=== PATIENT | female | born 1945 | race Caucasian/White ===

== ENCOUNTER 2016-08-09 10:35 | Outpatient (RCR) | payer MEDICARE, MEDICAID ==
[~2016-08-09 10:35] MED LIST: ALB.5NB20 IH; ALBU0.632 IH; ALBU2.5V4 IH; ALEN10TA5 PO; ALN70T; ALN70T PO; ALPR0.5T72 PO; ASP325TEC PO; ASP81CT; ASPI-983 PO; AZITHROMYCIN 1% OU; BACL10TA PO; BUDE10.2 INH; BUDE6HFA IH; BUDEPRION SR100 MG; CALC-80 PO; CALC600T; CALCIUM; CETI10TA17 PO; CHLO500T4; CLCX200C; CLN.2T PO; CLOP75TA PO; CPH250CIP PO; CYCL10TA9 PO; CYCL1DRO OU; DABI150C2 PO; DABI150C5 PO; DCS100C PO; DICY10CA26; DILT360C26 PO; DILT360C36 PO; DOXY100C2 PO; DULO30CA PO; DULO60CA58 PO; ETD400T; FAMO20TA3 PO; FAMO20TA5 PO; FAMO40TA6 PO; FIBER THERAPY PO; FLUT16SP22 NS; FNT100TD TP; FURO20TA4 PO; FURO40TA4 PO; GFN600TCR PO; IBAN150T5 PO; LEVO500T69 PO; LEVO50TA6 PO; LEVO750T39 PO; LEVO750T9 PO; LINA290C PO; LISI-552 PO; LISI40TA PO; LNS30CCR; LORA10TA7 PO; LOTE5DRO4 OU; LRT10T; LUBI24CA6 PO; LUBI8CAP PO; LVT.05T PO; MAG; MELO-195 PO; METH750T3 PO; METO100T5 PO; METO200T32 PO; MGX400T PO; MIRT30TA6 PO; MMT17NA; MNTL10T PO; MRTZ15T PO; MULT-35 PO; MULT-608; MULT1CAP27 PO; OMEP20CA12 PO; OMEP20TA2 PO; ONDA-42 PO; OSLT75C PO; OXYB5TAB9 PO; OXYC-309 PO; OXYC-464 PO; POLY17PO23 PO; POTA10CA43 PO; POTA99TA4 PO; POTA99TA7; POTA99TA7 PO; PRD20T PO; PROP10DR2 OP; RT-COMBINH; SCR1T1 PO; SENN8.6T80 PO; TIOT18CA IH; TIOT18CA2 INH; TRAM50TA2 PO; UMEC62.5 INH; VERA120T; VITA150T PO; VITA1CAP59 PO; ZINC; [UNRECOGNIZED DRUG - CODE] PO; boniva; claritin; nyquil
[2016-09-13] MEDS ORDERED: PRD20T PO ×2 (02:04→02:32)
[2016-09-13] MEDS ORDERED: CEFD300C3 PO ×2 (02:04→02:32)
== END 2016-11-07 | disposition home or self-care (01) ==
LOC: PULM 10:35
PROVIDERS: ATTEND Internal Medicine Critical Care Medicine
DX: J44.9 Chronic obstructive pulmonary disease, unspecified (principal)
CPT/HCPCS: 99211

== ENCOUNTER 2016-09-12 23:57 | Emergency (ER) | payer MEDICARE, MEDICAID ==
[~2016-09-12] VITALS: Ht 157.5 cm; Wt 64.9 kg
[2016-09-13 00:45] LABS: BASOPHILS % (AUTO) 0 % (0-10); EOSINOPHILS # (AUTO) 0.1 10^3/uL (0.0-0.3); EOSINOPHILS % (AUTO) 1 % (0-10); LYMPHOCYTES # (AUTO) 0.8 X 10^3 (1.0-4.0); LYMPHOCYTES % (AUTO) 8 % (12-44); MEAN CORPUSCULAR HEMOGLOBIN 28 PG (25-34); MEAN CORPUSCULAR HGB CONC 34 G/DL (32-36); MEAN CORPUSCULAR VOLUME 82 FL (80-99); MEAN PLATELET VOLUME 8.6 FL (7.4-10.4); MONOCYTES # (AUTO) 0.6 X 10^3 (0.0-1.0); MONOCYTES % (AUTO) 6 % (0-12); NEUTROPHILS # (AUTO) 8.5 X 10^3 (1.8-7.8); NEUTROPHILS % (AUTO) 85 % (42-75); PLATELET COUNT 318 10^3/uL (130-400); RED BLOOD COUNT 5.33 10^6/uL (4.35-5.85); RED CELL DISTRIBUTION WIDTH 16.6 % (10.0-14.5)
[2016-09-13] MEDS ORDERED: methylPREDNISolone 40 MG/ML (Solu-MEDROL) VIAL IV ONE (00:45)
[2016-09-13] MEDS ORDERED: RT-ALBUTEROL/IPRATROPIUM 3 ML (DUONEB) VIAL INH ONE (00:45)
[2016-09-13 01:04] LABS: ALANINE AMINOTRANSFERASE 21 U/L (0-55); ALBUMIN 4.6 G/DL (3.2-4.5); ANION GAP 13 MMOL/L (5-14); ASPARTATE AMINO TRANSFERASE 16 U/L (5-34); BILIRUBIN,TOTAL 0.4 MG/DL (0.1-1.0); BLOOD UREA NITROGEN 15 MG/DL (7-18); BUN/CREATININE RATIO 16; CALCIUM 9.3 MG/DL (8.5-10.1); CARBON DIOXIDE 24 MMOL/L (21-32); CHLORIDE 93 MMOL/L (98-107); CREATININE SERUM 0.91 MG/DL (0.60-1.30); GFR ESTIMATED > 60; GLUCOSE 123 MG/DL (70-105); MAGNESIUM 2.5 MG/DL (1.8-2.4); POTASSIUM 4.3 MMOL/L (3.6-5.0); SODIUM 130 MMOL/L (135-145); TOTAL PROTEIN 7.2 G/DL (6.4-8.2)
[2016-09-13] MEDS ORDERED: FUROSEMIDE 40 MG/4 ML INJ (LASIX) IVP ONE (01:45)
[2016-09-13] MEDS ORDERED: CEFDINIR 300 MG (OMNICEF) CAP PO ONE (02:00)
[2016-09-13] MEDS ORDERED: CEFD300C3 PO ×2 (02:04→02:32)
[2016-09-13] MEDS ORDERED: PRD20T PO ×2 (02:04→02:32)
--- NOTE | 2016-09-13 02:05 | ED Respiratory ---
General Chief Complaint: Respiratory Problems Stated Complaint: SOA, COUGH Nursing Triage Note: c/o progressive soa last 2-3 days. Cough reported. Hx of COPD and continues to smoke. Source: patient, family, RN notes reviewed Exam Limitations: no limitations History of Present Illness Time seen by provider: 00:20 Initial Comments As above. Timing/Duration: week, getting worse Severity: moderate Prior Episodes/Possible Cause: occasional episodes Modifying Factors: Worse With Activity Associated Symptoms: cough shortness of breath Allergies and Home Medications Allergies Coded Allergies: hydrocodone (Verified Allergy, Unknown, 11/17/15) warfarin (Verified Adverse Reaction, Intermediate, BLISTERS, 11/17/15) Home Medications Albuterol Sulfate 5 Mg/1 Ml Solution 5 MG IH Q6H PRN PRN SHORTNESS OF BREATH ( Reported) Aspirin 81 Mg Tablet.dr 81 MG PO EVERY OTHER DAY (Reported) Budesonide/Formoterol Fumarate 10.2 Gm Hfa.aer.ad 2 PUFF INH BID (Reported) Cefdinir 300 Mg Capsule #14 300 MG PO BID Prescribed by: TOSHIA DUENAS on 09/13/16231 Dabigatran Etexilate Mesylate 150 Mg Capsule 150 MG PO BID (Reported) Diltiazem HCl 360 Mg Cap.er.24h 360 MG PO HS (Reported) Duloxetine HCl 60 Mg Capsule.dr 60 MG PO BID (Reported) Famotidine 20 Mg Tablet 20 MG PO BID (Reported) Furosemide 20 Mg Tablet 20 MG PO DAILY (Reported) Levothyroxine Sodium 50 Mcg Tablet 50 MCG PO DAILY (Reported) Lisinopril 20 Mg Tablet 20 MG PO DAILY (Reported) Loratadine 10 Mg Tablet 10 MG PO DAILY (Reported) Lubiprostone 24 Mcg Capsule 24 MCG PO DAILY (Reported) Methocarbamol 750 Mg Tablet 750 MG PO TID (Reported) Metoprolol Succinate 200 Mg Tab.er.24h 200 MG PO DAILY (Reported) Mirtazapine 30 Mg Tablet 30 MG PO HS (Reported) Multivitamin 1 Each Tablet 1 TAB PO DAILY (Reported) Oxycodone HCl/Acetaminophen 1 Each Tablet 1 TAB PO Q4H PRN PRN PAIN (Reported) Prednisone 20 Mg Tab #15 30 MG PO BID Prescribed by: TOSHIA DUENAS on 09/13/16231 Umeclidinium [place] 62.5 Mcg Blst.w.dev 1 PUFF INH DAILY (Reported) Vitamin B Complex & Vit C No.4 150 Mg Tablet 150 MG PO DAILY (Reported) Constitutional: see HPI Respiratory: see HPI cough dyspnea on exertion short of breath All Other Systems Reviewed Negative Unless Noted: Yes (Negative excepted noted.) Past Zhvzxeh-Ntmxip-Lkzhzw Hx Patient Social History Alcohol Use: Denies Use Recreational Drug Use: No Smoking Status: Current Everyday Smoker Recent Foreign Travel: No Contact w/Someone Who Travel: No Recent Infectious Disease Expo: No Physical Abuse Screen: No Sexual Abuse: No Immunizations Up To Date Tetanus Booster (TDap): Unknown Date of Pneumonia Vaccine: Jun 18, 2005 Date of Influenza Vaccine: Jun 12, 2014 Seasonal Allergies Seasonal Allergies: No Surgeries HX Surgeries: Yes (ULCER SURG) Surgeries: Abdominal, Gallbladder Respiratory Hx Respiratory Disorders: Yes (emphysema, ) Respiratory Disorders: Pneumonia, Chronic Bronchitis, COPD, Emphysema Cardiovascular Hx Cardiac Disorders: Yes Cardiac Disorders: Atrial Fibrillation, Chronic Edema/Swelling, Coronary Artery Disease, Hypertension Neurological Hx Neurological Disorders: No Reproductive System Hx Reproductive Disorders: No Genitourinary Hx Genitourinary Disorders: No Gastrointestinal Hx Gastrointestinal Disorders: Yes Gastrointestinal Disorders: Gastroesophageal Reflux, Ulcer Musculoskeletal Hx Musculoskeletal Disorders: Yes Musculoskeletal Disorders: Chronic Back Pain Endocrine Hx Endocrine Disorders: Yes Endocrine Disorders: Hypothyroidsim HEENT HX ENT Disorders: No Cancer Hx Cancer: No Psychosocial Hx Psychiatric Problems: Yes Behavioral Health Disorders: Anxiety Integumentary HX Skin/Integumentary Disorder: No Blood Transfusions Hx Blood Disorders: No Adverse Reaction to a Blood Tr: No Family Medical History Family Medial History: Arthritis 19 FATHER 19 MOTHER Cardiovascular disease 19 FATHER Diabetes mellitus 19 FATHER Physical Exam Vital Signs Vital Sign - Last 12Hours 09/13/16 09/13/16 00:10 00:42 Temp 98.3 Pulse 84 Resp 20 B/P 177/103 Pulse Ox 92 O2 Delivery Room Air O2 Flow Rate 2 Capillary Refill : Less Than 3 Seconds General Appearance: WD/WN no apparent distress HEENT: pharynx normal Neck: normal inspection Respiratory: no respiratory distress decreased breath sounds Cardiovascular: regular rate, rhythm Extremities: pedal edema Neurologic/Psychiatric: no motor/sensory deficits alert oriented x 3 Skin: warm/dry Progress/Results/Core Measures Results/Orders Lab Results Laboratory Tests Test 09/13/16 00:35 09/13/16 02:00 Range/Units Alanine Aminotransferase (ALT/SGPT) 21 0-55 U/L Albumin 4.6 H 3.2-4.5 G/DL Alkaline Phosphatase 105 40-136 U/L Anion Gap 13 5-14 MMOL/L Aspartate Amino Transf (AST/SGOT) 16 5-34 U/L B-Type Natriuretic Peptide 265.6 H <100.0 PG/ML BUN/Creatinine Ratio 16 Basophils # (Auto) 0.0 0.0-0.1 10^3/uL Basophils (%) (Auto) 0 0-10 % Blood Urea Nitrogen 15 7-18 MG/DL Calcium Level 9.3 8.5-10.1 MG/DL Carbon Dioxide Level 24 21-32 MMOL/L Chloride Level 93 L 98-107 MMOL/L Creatinine 0.91 0.60-1.30 MG/DL D-Dimer 0.32 0.00-0.49 UG/ML Eosinophils # (Auto) 0.1 0.0-0.3 10^3/uL Eosinophils (%) (Auto) 1 0-10 % Estimat Glomerular Filtration Rate > 60 Glucose Level 123 H 70-105 MG/DL Hematocrit 44 35-52 % Hemoglobin 15.0 11.5-16.0 G/DL Lymphocytes # (Auto) 0.8 L 1.0-4.0 X 10^3 Lymphocytes (%) (Auto) 8 L 12-44 % Magnesium Level 2.5 H 1.8-2.4 MG/DL Mean Corpuscular Hemoglobin 28 25-34 PG Mean Corpuscular Hemoglobin Concent 34 32-36 G/DL Mean Corpuscular Volume 82 80-99 FL Mean Platelet Volume 8.6 7.4-10.4 FL Monocytes # (Auto) 0.6 0.0-1.0 X 10^3 Monocytes (%) (Auto) 6 0-12 % Neutrophils # (Auto) 8.5 H 1.8-7.8 X 10^3 Neutrophils (%) (Auto) 85 H 42-75 % Platelet Count 318 130-400 10^3/uL Potassium Level 4.3 3.6-5.0 MMOL/L Red Blood Count 5.33 4.35-5.85 10^6/uL Red Cell Distribution Width 16.6 H 10.0-14.5 % Sodium Level 130 L 135-145 MMOL/L Total Bilirubin 0.4 0.1-1.0 MG/DL Total Protein 7.2 6.4-8.2 G/DL White Blood Count 10.0 4.3-11.0 10^3/uL Urine Bacteria TRACE /HPF Urine Bilirubin NEGATIVE NEGATIVE Urine Casts NONE /LPF Urine Clarity CLEAR Urine Color YELLOW Urine Crystals NONE /LPF Urine Culture Indicated NO Urine Glucose (UA) NEGATIVE NEGATIVE Urine Ketones NEGATIVE NEGATIVE Urine Leukocyte Esterase 1+ H NEGATIVE Urine Mucus NEGATIVE /LPF Urine Nitrite NEGATIVE NEGATIVE Urine Protein NEGATIVE NEGATIVE Urine RBC RARE /HPF Urine RBC (Auto) 1+ H NEGATIVE Urine Specific [place] 1.010 L 1.016-1.022 Urine Squamous Epithelial Cells 2-5 /HPF Urine Urobilinogen NORMAL NORMAL MG/DL Urine WBC RARE /HPF Urine pH 7 5-9 My Orders Orders-TOSHIA DUENAS DO Saline Lock/Iv-Start (09/13/16 00:31) Ekg Tracing (09/13/16 00:31) BNP (09/13/16 00:31) Cbc With Automated Diff (09/13/16 00:31) Comprehensive Metabolic Panel (09/13/16 00:31) Magnesium (09/13/16 00:31) Ua Culture If Indicated (09/13/16 00:31) Chest 1 View, Ap/Pa Only (09/13/16 00:31) Methylprednisolone Sod Succ (Solu-Medrol (09/13/16 00:45) Rt Request For Service (09/13/16 00:34) Oxygen-Administer 07,19 (09/13/16 00:34) Albuterol/Ipra Inhalation Soln (Duoneb I (09/13/16 00:45) Svn Sm Volume Nebulizer Rt-Rfs (09/13/16 00:36) Furosemide Injection (Lasix Injection) (09/13/16 01:45) Fibrin Degradation Products (09/13/16 01:36) Cefdinir Capsule (Omnicef Capsule) (09/13/16 02:00) Iv Push Care Assistant Ed (09/12/16 ) Medications Given in ED Vital Signs/I&O Vital Sign - Last 12Hours 09/13/16 09/13/16 09/13/16 00:10 00:42 02:26 Temp 98.3 Pulse 84 85 Resp 20 18 B/P 177/103 Pulse Ox 92 99 97 O2 Delivery Room Air Nasal Cannula O2 Flow Rate 2 Blood Pressure Mean: 127 Progress Note : Progress Note Feels better p/ IV Solu medrol and SVN treatment. States feels well enough to go home. Has been using her Lasix prn. Have encourage her to take daily for next several days. ECG Initial ECG Impression Date: Sep 13, 2016 Initial ECG Impression Time: 00:46 Initial ECG Rate: 83 Initial ECG Rhythm: A Fib/Flutter Initial ECG Impression: Atrial Fibrillation (? anteroseptal infarct; probable ischemia diffuse leads) Initial ECG Comparisson: Changed Diagnostic Imaging Diagonstic Imaging: Xray Plain Films/CT/US/NM/MRI: chest Reviewed: Reviewed by Me (chronic changes) Departure Impression Impression: Primary Impression: COPD exacerbation Additional Impressions: CHF (congestive heart failure) Tobacco abuse Atrial fibrillation, controlled Disposition: 01 HOME, SELF-CARE Condition: Improved Departure-Patient Inst. Decision time for Depature: 02:02 Referrals: OBINNA PRASAD MD (PCP/Family) Primary Care Physician Patient Instructions: Exacerbation of COPD (DC) Add. Discharge Instructions: All discharge instructions reviewed with patient and/or family. Voiced understanding. RECOMMEND TAKING YOUR LASIX FOR THE NEXT COUPLE DAYS WELL. Scripts Prednisone 20 Mg Tab30 Mg PO BID #15 TAB Ref 0 Prov:TOSHIA DUENAS DO 09/13/16 Cefdinir 300 Mg [id number] Mg PO BID #14 CAP Ref 0 Prov:TOSHIA DUENAS DO 09/13/16 TOSHIA DUENAS DO Sep 13, 2016 02:05 Impression Impression: Primary Impression: COPD exacerbation Additional Impressions: CHF (congestive heart failure) Tobacco abuse Atrial fibrillation, controlled Disposition: HOME, SELF-CARE Condition: Improved Departure-Patient Inst. Decision time for Depature: 02:02 Referrals: OBINNA PRASAD MD (PCP/Family) Primary Care Physician Patient Instructions: Exacerbation of COPD (DC) Add. Discharge Instructions: All discharge instructions reviewed with patient and/or family. Voiced understanding. RECOMMEND TAKING YOUR LASIX FOR THE NEXT COUPLE DAYS WELL. Scripts Prednisone 20 Mg Tab30 Mg PO BID #15 TAB Ref 0 Prov:TOSHIA DUENAS DO 09/13/16 Cefdinir 300 Mg [id number] Mg PO BID #14 CAP Ref 0 Prov:TOSHIA DUENAS DO 09/13/16 TOSHIA DUENAS DO Sep 13, 2016 02:05
[2016-09-13 02:26] VITALS: BP 169/92
[2016-09-13 03:02] LABS: BILIRUBIN,URINE NEGATIVE (NEGATIVE); KETONES,URINE NEGATIVE (NEGATIVE); LEUKOCYTE ESTERASE ,URINE 1+ (NEGATIVE); NITRITE,URINE NEGATIVE (NEGATIVE); PH,URINE 7 (5-9); PROTEIN,URINE NEGATIVE (NEGATIVE); UROBILINOGEN,URINE NORMAL (NORMAL); WBC,URINE RARE /HPF
--- NOTE | 2016-09-13 07:18 | Diagnostic Imaging Report ---
INDICATION: Shortness of air. Compared 03/01/2016. FINDINGS: Air trapping and COPD chronic. Cardiomegaly chronic. No effusion, pneumothorax, or failure pattern. IMPRESSION: Chronic COPD stable from prior. Dictated by: Dictated on workstation # [id number]
== END 2016-09-13 02:26 | disposition home or self-care (01) ==
LOC: EDUNIT# 23:57 → ER 09-13
DX: J44.1 Chronic obstructive pulmonary disease with (acute) exacerbation (principal); I48.2 Chronic atrial fibrillation; I50.9 Heart failure, unspecified; F17.210 Nicotine dependence, cigarettes, uncomplicated; Z79.899 Other long term (current) drug therapy
CPT/HCPCS: 36415; 71010; 80053; 81000; 83735; 83880; 85025; 85379; 93005; 94640; 96374; 96375

== ENCOUNTER → 2016-09-30 | Outpatient (CLI) | payer MEDICARE, MEDICAID ==
[~2016-09-30] MED LIST changes: +CEFD300C3 PO
--- NOTE | 2016-09-30 18:10 | Diagnostic Imaging Report ---
INDICATION: Cough and shortness of breath. EXAMINATION: PA and lateral chest was obtained at 1:46 p.m. COMPARISON: 09/13/16. FINDINGS: Heart is borderline in size. The lungs are clear. There is no pneumothorax or pleural fluid. IMPRESSION: No acute process in the chest. Dictated by: Dictated on workstation # [id number]
== END ==
LOC: RAD 13:17
PROVIDERS: ATTEND Family Medicine
DX: R06.02 Shortness of breath (principal)
CPT/HCPCS: 71020

== ENCOUNTER 2016-11-05 08:40 | Outpatient (CLI) | payer MEDICARE, MEDICAID ==
[~2016-11-05] VITALS: Ht 160 cm; Wt 61.2 kg
[2016-11-05] MEDS ORDERED: BUPIVACAINE 0.25% 30 ML (SENSORCAINE) VIAL ONE (08:48)
[2016-11-05] MEDS ORDERED: TRIAMCINOLONE ACET (KENALOG-40) 40 MG/ML 1 ML VIAL ONE (08:48)
[2016-11-05 08:56] VITALS: BP 121/87
[2016-11-05 09:18] VITALS: BP 140/96
--- NOTE | 2016-11-05 11:23 | Pain Medicine-Procedure ---
Procedure Pre-Op/Post-Op Diagnosis Diagnosis: disc disorder with radiculopathy, lumbar Indications for Operation low back pain Attending Surgeon [place] Procedure Date of Service: Nov 05, 2016 PROCEDURE: Caudal Epidural Steroid Injection with catheter under Flouroscopic Guidance PROCEDURE NOTE: After obtaining written informed consent patient was taken to the procedure room. Vital signs were monitored through out the procedure. patient held her Pradaxa for 5 days prior to procedure.A time out was performed. The patient was placed in the prone position on fluoroscopy table. The lower back above the caudal space was prepped with chloraprep and draped in the usual sterile fashion. The skin over the sacral hiatus was identified under fluoroscopic guidance and infiltrated with 1% lidocaine for local anesthesia via 25 gauge needle. An 17-gauge epimed needle was used to access the epidural space under fluoroscopic guidance and was then advanced into the epidural space under fluoroscopic guidance in the AP view. The epimed catheter was then advanced under flourospopic guidance to the L5-S1 interspace. There was no paresthesia with catheter placement. After negative aspiration 1 cc of the contrast dye was injected through the needle with good spread of the medication in the epidural space at the appropriate levels. Again, after negative aspiration, 80 mg of kenalog with 2 cc of 0.25% marcaine and 2 mL's of preservative free normal saline was injected. There was no evidence of CSF, paresthesia or heme during the procedure. The catheter and needle were withdrawn as a unit and the tip was noted to be intact upon removal. Skin was cleaned and a sterile dressing was applied. Following the procedure the patient's vital signs were stable. The patient was discharged home after a brief period of observation with no new neuologic deficits. Complications none LELE HUGHES MD Nov 05, 2016 11:23 am
== END 2016-11-05 09:19 | disposition home or self-care (01) ==
LOC: CARD 08:40
PROVIDERS: ATTEND Pain Medicine Pain Medicine
DX: M51.16 Intervertebral disc disorders with radiculopathy, lumbar region (principal); M53.3 Sacrococcygeal disorders, not elsewhere classified; M47.816 Spondylosis without myelopathy or radiculopathy, lumbar region; Z79.899 Other long term (current) drug therapy; G89.4 Chronic pain syndrome
CPT/HCPCS: 62323

== ENCOUNTER 2017-05-28 11:52 | Emergency (ER) | payer MEDICARE, MEDICAID ==
[~2017-05-28] VITALS: Ht 160 cm; Wt 64.4 kg
[~2017-05-28 11:52] MED LIST changes: -ALB.5NB20 IH; +ALBU5SOL6 IH; -METO200T32 PO; +METO200T4 PO
--- OUTSIDE RECORDS SUMMARY | 2017-05-28 11:58 | XMS REPORT ---
Author Author OBINNA PRASAD [employer] Address Unknown Phone Unavailable Care Team Providers Care Car Storer Name Role Phone OBINNA PRASAD CP Unavailable Allergies No Known Allergies Problems Problem Type Condition ICD-9 Code Onset Dates Condition Status Problem Nondependent tobacco use disorder 305.1 Active Problem Hypothyroidism 244.9 Active Problem Hyponatremia 276.1 Active Assessment Adrenal mass 255.9 Active Problem Atrial fibrillation 427.31 Active Problem Hypertension 401.9 Active Problem Adrenal mass 255.9 Active Problem COPD (chronic obstructive pulmonary disease) 496 Active Problem Irritable bowel syndrome 564.1 Active Problem Generalized anxiety disorder 300.02 Active Problem Chronic pain 338.29 Active Medications No Known Medications Procedures Procedure Coding System Code Date TOTAL CORTISOL CPT-4 28764 Jun 02, 2015 CIERA, ROUTINE* CPT-4 82058 Jun 02, 2015 [facility] CPT-4 NOBLL Jun 02, 2015 Results No Known Results Summary Purpose eClinicalWorks Submission
--- OUTSIDE RECORDS SUMMARY | 2017-05-28 11:58 | XMS REPORT ---
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 Active 2378109377694255 Problem Hyponatremia E87.1 Active 17277494 Problem Allergic rhinitis, unspecified allergic rhinitis trigger, unspecified rhinitis seasonality J30.9 Active 67883016 Problem Rectal bleeding K62.5 Active 03388272 Problem Anxiety F41.9 Active 21547035 Problem 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 Active 720098029 Problem Irritable bowel syndrome without diarrhea K58.9 Active 96958262 Problem Persistent atrial fibrillation I48.1 Active 494024384 Problem Tobacco use Z72.0 Active 207027608 Problem Other chronic pain G89.29 Active 19557809 Problem Other nonspecific abnormal finding of lung field R91.8 Resolved 225553107 Problem Hypothyroidism, unspecified hypothyroidism type E03.9 Active 17474959 ALLERGIES Unknown Allergies SOCIAL HISTORY No smoking Hx information available PLAN OF CARE VITAL SIGNS MEDICATIONS Unknown Medications RESULTS No Results PROCEDURES No Known procedures IMMUNIZATIONS No Known Immunizations
--- OUTSIDE RECORDS SUMMARY | 2017-05-28 11:58 | XMS REPORT ---
Author Author OBINNA PRASAD [facility] eClinicalWorks Address Unknown Phone Unavailable Care Team Providers Care Pasteurizing Machine Operator Name Role Phone OBINNA PRASAD CP Unavailable [...] pain 338.29 Active Medications No Known Medications Results No Known Results Summary Purpose eClinicalWorks Submission
--- OUTSIDE RECORDS SUMMARY | 2017-05-28 11:58 | XMS REPORT ---
Author Author OBINNA PRASAD [facility] eClinicalWorks Address Unknown Phone Unavailable Care Team Providers Care Sales Department Supervisor Name Role Phone OBINNA PRASAD CP Unavailable Allergies No Known Allergies Problems Problem Type Condition Code Onset Dates Condition Status Problem Nondependent tobacco use disorder 305.1 Active Problem Hypothyroidism 244.9 Active Problem Hyponatremia 276.1 Active Problem Atrial fibrillation 427.31 Active Problem Hypertension 401.9 Active Problem Adrenal mass 255.9 Active Problem COPD (chronic obstructive pulmonary disease) 496 Active Problem Irritable bowel syndrome 564.1 Active Problem Generalized anxiety disorder 300.02 Active Problem Chronic pain 338.29 Active Medications Medication Code System Code Instructions Start Date End Date Status Dosage Levothyroxine Sodium [facility] [address]-82 50 MCG Orally Once a day April 10, 2015 1 tablet Results No Known Results Summary Purpose eClinicalWorks Submission
--- OUTSIDE RECORDS SUMMARY | 2017-05-28 11:59 | XMS REPORT ---
Author Author OBINNA PRASAD [employer] Address Unknown Phone Unavailable Care Team Providers Care Farm Field Manager Name Role Phone OBINNA PRASAD CP Unavailable Allergies No Known Allergies Problems Problem Type Condition Code Onset Dates Condition Status Problem Hypothyroidism, unspecified hypothyroidism type E03.9 Active Problem Nocturnal hypoxia G47.34 Active Problem Irritable bowel syndrome without diarrhea K58.9 Active Assessment 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 Active Problem Hyponatremia E87.1 Active Problem Tobacco use Z72.0 Active Problem Persistent atrial fibrillation I48.1 Active Problem 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 Active Problem Other chronic pain G89.29 Active Problem Chronic obstructive pulmonary disease, unspecified COPD type J44.9 Active Problem Essential hypertension I10 Active Problem Anxiety F41.9 Active Medications No Known Medications Procedures Procedure Coding System Code Date CORTISOL, FREE CPT-4 10341 Jul 14, 2015 ASSAY, THREE CATECHOLAMINES CPT-4 68032 Jul 14, 2015 Results No Known Results Summary Purpose eClinicalWorks Submission
--- OUTSIDE RECORDS SUMMARY | 2017-05-28 11:59 | XMS REPORT ---
Author Author OBINNA PRASAD [employer] Address Unknown Phone Unavailable Care Team Providers Care Cart Pusher Name Role Phone OBINNA PRASAD CP Unavailable Allergies No Known Allergies Problems Problem Type Condition Code Onset Dates Condition Status Problem Chronic obstructive pulmonary disease, unspecified COPD type J44.9 Active Problem Anxiety F41.9 Active Problem Other chronic pain G89.29 Active Problem Osteoporosis M81.0 Active Problem Rectal bleeding K62.5 Active Problem Allergic rhinitis, unspecified allergic rhinitis trigger, unspecified rhinitis seasonality J30.9 Active Problem Persistent atrial fibrillation I48.1 Active Problem Essential hypertension I10 Active Problem 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 Active Problem Tobacco use Z72.0 Active Assessment 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 Active Problem Hyponatremia E87.1 Active Problem Hypothyroidism, unspecified hypothyroidism type E03.9 Active Problem Other nonspecific abnormal finding of lung field R91.8 Active Problem Irritable bowel syndrome without diarrhea K58.9 Active Problem 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
--- OUTSIDE RECORDS SUMMARY | 2017-05-28 11:59 | XMS REPORT ---
Author ELOISA Vila Organization [employer] Address Unknown Phone Unavailable Care Team Providers Care Welder Apprentice Name Role Phone ELOISA HAYNES CP Unavailable Allergies No Known Allergies Problems [...] Instructions Start Date End Date Status Dosage Spiriva HandiHaler [facility] [address]-23 18 MCG Inhalation Once a day February 13, 2015 1 capsule Albuterol Sulfate [facility] [address]-46 2.5 mg /3 mL (0.083 %) Oct 09, 2014 inhale 3 milliliters (2.5 mg) by nebulization route 3 times per day as needed Results No Known Results Summary Purpose eClinicalWorks Submission
--- OUTSIDE RECORDS SUMMARY | 2017-05-28 11:59 | XMS REPORT ---
Author Author OBINNA PRASAD Organization [employer] Address Unknown Phone Unavailable Care Team Providers Care Fruit Inspector Name Role Phone OBINNA PRASAD CP Unavailable [...] 300.02 Active Problem Chronic pain 338.29 Active Assessment COPD (chronic obstructive pulmonary disease) 496 Active Assessment Chronic pain 338.29 Active Assessment Atrial fibrillation 427.31 Active Assessment Chronic sore throat 472.1 Active Assessment Generalized anxiety disorder 300.02 Active Assessment Hypothyroidism 244.9 Active Assessment Hypertension 401.9 Active Assessment Adrenal mass 255.9 Active Medications No Known Medications Procedures Procedure Coding System Code Date ASSAY OF ALDOSTERONE CPT-4 52499 May 12, 2015 ASSAY OF RENIN CPT-4 93191 May 12, 2015 LAB NOT BILLED BY [facility] CPT-4 NOBLL May 12, 2015 VENIPUNCT, ROUTINE* CPT-4 48299 May 12, 2015 Results Name Result Date Reference Range Unit Abnormality Flag ROUTINE VENIPUNCTURE Summary Purpose eClinicalWorks Submission
--- OUTSIDE RECORDS SUMMARY | 2017-05-28 11:59 | XMS REPORT ---
Author Author OBINNA PRASAD [facility] eClinicalWorks Address Unknown Phone Unavailable Care Team Providers Care Detacker Name Role Phone OBINNA PRASAD Unavailable Allergies No Known Allergies Problems Problem [...] Instructions Start Date End Date Status Dosage Mirtazapine [facility] [address]-92 30 MG Oct 09, 2014 take 1 tablet ( 30 mg) by oral route once daily before bedtime Results No Known Results Summary Purpose eClinicalWorks Submission
--- OUTSIDE RECORDS SUMMARY | 2017-05-28 11:59 | XMS REPORT ---
Author Author OBINNA PRASAD [facility] eClinicalWorks Address Unknown Phone Unavailable Care Team Providers Care State Game Protector Name Role Phone OBINNA PRASAD CP Unavailable [...]
--- OUTSIDE RECORDS SUMMARY | 2017-05-28 12:00 | XMS REPORT ---
Author Author OBINNA PRASAD Organization [employer] Address Unknown Phone Unavailable Care Team Providers Care Dining Services Manager Name Role Phone OBINNA PRASAD CP [...] Active Problem Tobacco use Z72.0 Active Assessment Hyponatremia E87.1 Active Assessment 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 Active Problem Hyponatremia E87.1 Active Problem Hypothyroidism, unspecified hypothyroidism type E03.9 Active Problem Other nonspecific abnormal finding of lung field R91.8 Active Problem Irritable bowel syndrome without diarrhea K58.9 Active Problem 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 Active Problem Nocturnal hypoxia G47.34 Active Medications No Known Medications Results No Known Results Summary Purpose eClinicalWorks Submission
--- OUTSIDE RECORDS SUMMARY | 2017-05-28 12:00 | XMS REPORT ---
Author Author OBINNA PRASAD [employer] Address Unknown Phone Unavailable Care Team Providers Care Medical Receptionist Biller Name Role Phone OBINNA PRASAD CP Unavailable Allergies No Known Allergies Problems Problem Type Condition Code Onset Dates Condition Status Problem Hypothyroidism, unspecified hypothyroidism type E03.9 Active Problem Nocturnal hypoxia G47.34 Active Problem Irritable bowel syndrome without diarrhea K58.9 Active Assessment Chronic obstructive pulmonary disease, unspecified COPD type J44.9 Active Problem Hyponatremia E87.1 Active Problem Tobacco use Z72.0 Active Problem Persistent atrial fibrillation I48.1 Active Problem 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 Active Problem Other chronic pain G89.29 Active Problem Chronic obstructive pulmonary disease, unspecified COPD type J44.9 Active Problem Essential hypertension I10 Active Problem Anxiety F41.9 Active Medications Medication Code System Code Instructions Start Date End Date Status Dosage Albuterol Sulfate [facility] [id number] (2.5 MG/3ML) 0.083% USE ONE VIAL PER NEBULIZER THREE TIMES DAILY NEEDED FOR SHORTNESS OF BREATH Results No Known Results Summary Purpose eClinicalWorks Submission
--- OUTSIDE RECORDS SUMMARY | 2017-05-28 12:01 | XMS REPORT ---
Author Author OBINNA PRASAD [facility] eClinicalWorks Address Unknown Phone Unavailable Care Team Providers Care Finished Carpet Inspector Name Role Phone OBINNA PRASAD CP [...]
--- OUTSIDE RECORDS SUMMARY | 2017-05-28 12:01 | XMS REPORT ---
Author Author SHANICE OBINNA Organization [facility] Address [address] [place] [address] Care Team Providers Care R D Manager Name Role Phone OBINNA PRASAD Unavailable PROBLEMS Type Condition ICD9-CM Code LLD20-[id number] Code Onset Dates Condition Status SNOMED Code Problem Chronic obstructive pulmonary disease, unspecified COPD type J44.9 Active 28374558 Problem Essential hypertension I10 Active 14373322 Problem Nocturnal hypoxia G47.34 Active 218234693 Problem Primary insomnia F51.01 Active 5455763 Problem Osteoporosis M81.0 Active 64371920 Problem 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 Active 7418140296019034 Problem Hyponatremia E87.1 Active 02140539 Problem Allergic rhinitis, unspecified allergic rhinitis trigger, unspecified rhinitis seasonality J30.9 Active 32551758 Problem Rectal bleeding K62.5 Active 71198469 Problem Anxiety F41.9 Active 02231202 Problem 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 Active 267335704 Problem Irritable bowel syndrome without diarrhea K58.9 Active 34404972 Problem Persistent atrial fibrillation I48.1 Active 865711185 Problem Tobacco use Z72.0 Active 004193118 Problem Other chronic pain G89.29 Active 40312706 Problem Other nonspecific abnormal finding of lung field R91.8 Resolved 774997613 Problem Hypothyroidism, unspecified hypothyroidism type E03.9 Active 88228869 ALLERGIES Unknown Allergies SOCIAL HISTORY No smoking Hx information available PLAN OF CARE VITAL SIGNS MEDICATIONS Medication Instructions Dosage Frequency Start Date End Date Duration Status Fluticasone Propionate 50 MCG/ACT Nasally Once a day 1 spray in each nostril 24h May, Active Polyethylene Glycol 3350 0 Orally Once a day 1 capful with 8 oz fluid 24h Jul, Active RESULTS No Results PROCEDURES No Known procedures IMMUNIZATIONS No Known Immunizations
--- OUTSIDE RECORDS SUMMARY | 2017-05-28 12:01 | XMS REPORT ---
Author Author OBINNA PRASAD Organization [employer] Address Unknown Phone Unavailable Care Team Providers Care Commercial Litigation Paralegal Name Role Phone OBINNA PRASAD CP Unavailable [...] Instructions Start Date End Date Status Dosage Furosemide [facility] [address]-48 20 MG November 19, 2014 take 1 tablet by Oral route 1 time per day PRN Linzess [facility] [address]-79 290 MCG Oct 14, 2014 take 1 capsule by Oral route 1 time per day Results No Known Results Summary Purpose [employer] Submission
--- OUTSIDE RECORDS SUMMARY | 2017-05-28 12:02 | XMS REPORT ---
Author Author OBINNA PRASAD [employer] Address Unknown Phone Unavailable Care Team Providers Care Personnel Adviser Name Role Phone OBINNA PRASAD CP Unavailable Allergies No Known Allergies Problems Problem Type Condition Code Onset Dates Condition Status Problem Hypothyroidism, unspecified hypothyroidism type E03.9 Active Problem Nocturnal hypoxia G47.34 Active Problem Irritable bowel syndrome without diarrhea K58.9 Active Problem Hyponatremia E87.1 Active Problem Tobacco use Z72.0 Active Problem Persistent atrial fibrillation I48.1 Active Problem 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 Active Problem Other chronic pain G89.29 Active Problem Chronic obstructive pulmonary disease, unspecified COPD type J44.9 Active Problem Essential hypertension I10 Active Problem Anxiety F41.9 Active Medications No Known Medications Results No Known Results Summary Purpose [employer]ClinicalWorks Submission
--- OUTSIDE RECORDS SUMMARY | 2017-05-28 12:02 | XMS REPORT ---
Author Author OBINNA PRASAD [employer] Address Unknown Phone Unavailable Care Team Providers Care Sprayer Automatic Spray Machine Name Role Phone OBINNA PRASAD CP Unavailable Allergies No Known Allergies Problems Problem Type Condition Code Onset Dates Condition Status Problem Irritable bowel syndrome without diarrhea K58.9 Active Problem Chronic obstructive pulmonary disease, unspecified COPD type J44.9 Active Problem Nocturnal hypoxia G47.34 Active Problem 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 Active Problem Tobacco use Z72.0 Active Problem Rectal bleeding K62.5 Active Problem Anxiety F41.9 Active Problem Other chronic pain G89.29 Active Problem Persistent atrial fibrillation I48.1 Active Problem Essential hypertension I10 Active Problem Other nonspecific abnormal finding of lung field R91.8 Active Problem 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 Active Problem Hyponatremia E87.1 Active Problem Hypothyroidism, unspecified hypothyroidism type E03.9 Active Medications Medication Code System Code Instructions Start Date End Date Status Dosage Incruse Ellipta [facility] [id number] 62.5 MCG/INH INHALE 1 PUFF ONCE A DAY Results No Known Results Summary Purpose [employer]ClinicalWorks Submission
--- OUTSIDE RECORDS SUMMARY | 2017-05-28 12:02 | XMS REPORT ---
Author Author OBINNA PRASAD [employer] Address Unknown Phone Unavailable Care Team Providers Care Color Strainer Name Role Phone OBINNA PRASAD CP Unavailable [...] Instructions Start Date End Date Status Dosage Pepcid [facility] [address]-76 40 MG Orally Once a day Aug 21, 2015 1 tablet Results No Known Results Summary Purpose [employer]ClinicalWorks Submission
--- OUTSIDE RECORDS SUMMARY | 2017-05-28 12:02 | XMS REPORT ---
Author Author OBINNA PRASAD [employer] Address Unknown Phone Unavailable Care Team Providers Care Professor Of Business Administration Name Role Phone OBINNA PRASAD CP Unavailable [...] dysplasia K22.710 Active Problem Hyponatremia E87.1 Active Assessment Hyponatremia E87.1 Active Problem Hypothyroidism, unspecified hypothyroidism type E03.9 Active Medications No Known Medications Results No Known Results Summary Purpose [employer]ClinicalWorks Submission
--- OUTSIDE RECORDS SUMMARY | 2017-05-28 12:02 | XMS REPORT ---
Author Author OBINNA PRASAD [employer] Address Unknown Phone Unavailable Care Team Providers Care Linux Network Administrator Name Role Phone OBINNA PRASAD CP Unavailable Allergies, Adverse Reactions, Alerts Substance Reaction Event Type Hydrocodone Bitartrate Info Not Available Drug Allergy Coumadin Info Not Available Drug Allergy Problems Problem Type Condition Code Onset Dates Condition Status Problem Other chronic pain G89.29 Active Problem Essential hypertension I10 Active Problem Anxiety F41.9 Active Problem Allergic rhinitis, unspecified allergic rhinitis trigger, unspecified rhinitis seasonality J30.9 Active Assessment Anxiety F41.9 Active Problem Osteoporosis M81.0 Active Assessment Primary insomnia F51.01 Active Assessment Drug-induced constipation K59.03 Active Problem Primary insomnia F51.01 Active Problem Tobacco use Z72.0 Active Problem Persistent atrial fibrillation I48.1 Active Problem Rectal bleeding K62.5 Active Problem 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 Active Assessment Other chronic pain G89.29 Active Problem Other nonspecific abnormal finding of lung field R91.8 Active Assessment Screening for breast cancer Z12.39 Active Assessment Hematuria R31.9 Active Problem Hypothyroidism, unspecified hypothyroidism type E03.9 Active Problem Irritable bowel syndrome without diarrhea K58.9 Active Problem 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 Active Problem Nocturnal hypoxia G47.34 Active Assessment Encounter for immunization Z23 Active Problem Hyponatremia E87.1 Active Problem Chronic obstructive pulmonary disease, unspecified COPD type J44.9 Active Medications Medication Code System Code Instructions Start Date End Date Status Dosage Fluticasone Propionate [facility] [address]-13 50 MCG/ACT Nasally Once a day Jun 08, 2016 1 spray in each nostril Ventolin HFA [facility] [address]-25 108 (90 Base) MCG/ACT Inhalation every 4 hrs 2 puffs as needed Furosemide [facility] 01198226098 20 MG TAKE ONE TABLET BY MOUTH EVERY DAY NEEDED 30 duloxetine NDC 0 60 mg Oct 14, 2014 take 1 capsule by Oral route 2 times per day Symbicort [facility] [address]-51 160-4.5 mcg/actuation November 28, 2014 inhale 2 puffs by inhalation route 2 times per day in the morning and evening Albuterol Sulfate [facility] 10587898699 (2.5 MG/3ML) 0.083% USE 1 VIAL VIA NEBULIZER THREE TIMES DAILY NEEDED FOR SHORTNESS OF BREATH - NEEDS AN APPOINTMENT FOR MORE REFILLS Oxycodone-Acetaminophen [facility] [address]-91 7.5-325 MG Orally every 4 hours 1 tablet as needed OxyContin [facility] [address]-04 15 MG Orally every 12 hrs 1 tablet Mirtazapine [facility] 35845232699 30 MG TAKE ONE TABLET BY MOUTH ONCE DAILY BEFORE BEDTIME Pradaxa [facility] [address]-47 150 mg Oct 09, 2014 take 1 capsule (150 mg) by oral route 2 times per day Lisinopril [facility] [address]-95 20 mg Oct 09, 2014 take 1 tablet (20 mg) by oral route once daily Amitiza [facility] 27576386591 24 MCG TAKE 1 CAPSULE BY MOUTH TWICE DAILY - TAKE WITH FOOD Alendronate Sodium [facility] [address]-19 70 MG Orally by oral route once weekly in the morning, at least 30 min before first food, beverage, or medication of day February 12, 2015 1 tablet Pepcid [facility] [address]-03 40 MG Orally Once a day Aug 21, 2015 1 tablet Polyethylene Glycol 3350 [facility] [address]-41 0 Orally Once a day Jul 29, 2016 1 capful with 8 oz fluid Methocarbamol [facility] [address]-77 750 mg Oct 09, 2014 take 1 tablets by Oral route 3 times per day Levothyroxine Sodium [facility] 76007778108 50 MCG TAKE ONE TABLET BY MOUTH ONCE DAILY Loratadine [facility] 40862303405 10 MG Orally Once a day 1 Tablet by Oral route 1 time per day Incruse Ellipta [facility] 85493396361 62.5 MCG/INH INHALE 1 PUFF ONCE A DAY Metoprolol Succinate ND 0 200 mg Oct 09, 2014 take 1 tablet (200 mg) by oral route once daily Cardizem CD [facility] [address]-50 360 mg Oct 09, 2014 take 1 capsule ( 360 mg) by oral route once daily Procedures Procedure Coding System Code Date [facility] VISIT ESTABLISHED PATIENT CPT-4 G0467 Jul 29, 2016 Office Visit, Est Pt., Level 3 CPT-4 17602 Jul 29, 2016 [facility] NOBLL Jul 29, 2016 SINGLE IMMUNIZATION ADMIN CPT-4 03740 Jul 29, 2016 FLUARIX QUAD P-FREE 3 AND UP .50 2015 CPT-4 94303 Jul 29, 2016 Vital Signs Date/Time: Jul 29, 2016 Cardiac Monitoring Heart Rate 72 bpm Weight 143.3 lbs Height 64 in BMI 24.59 Index Blood Pressure Diastolic 82 mmHg Blood Pressure Systolic 130 mmHg Results Name Result Date Reference Range Unit Abnormality Flag UA W/ MICROSCOPY ----RBC 0-2 [id number] 0 - 2 /hpf ----WBC 0-5 [id number] 0 - 5 /hpf ----Mucus Threads Present [id number] Not Estab. ----Epithelial Cells (non renal) 0-10 [id number] 0 - 10 /hpf ----Occult Blood Negative [id number] Negative ----Ketones Negative 20160729 Negative ----Bacteria None seen [id number] None seen/Few ----Glucose Negative 20160729 Negative ----Protein Negative [id number] Negative/Trace ----WBC Esterase Trace [id number] Negative A ----Urobilinogen,Semi-Qn 0.2 78121001 0.2-1.0 mg/dL ----Bilirubin Negative [id number] Negative ----Microscopic Examination See below: [id number] ----Nitrite, Urine Negative [id number] Negative ----Specific [place] 1.009 20160729 1.005-1.030 ----pH 7.0 39782753 5.0-7.5 ----Urine-Color Yellow [id number] Yellow ----Appearance Clear [id number] Clear Immunizations Vaccine Administration Date FLUARIX QUAD P-FREE 3 AND UP .50 2015Jul 29, 2016 Summary Purpose eClinicalWorks Submission
--- OUTSIDE RECORDS SUMMARY | 2017-05-28 12:03 | XMS REPORT ---
Author Author OBINNA RPASAD Organization [employer] Address Unknown Phone Unavailable Care Team Providers Care Russian Teacher Name Role Phone OBINNA PRASAD CP Unavailable [...]
--- OUTSIDE RECORDS SUMMARY | 2017-05-28 12:03 | XMS REPORT ---
Author Author OBINNA PRASAD [employer] Address Unknown Phone Unavailable Care Team Providers Care Insurance Checker Name Role Phone OBINNA PRASAD CP Unavailable [...]
--- OUTSIDE RECORDS SUMMARY | 2017-05-28 12:03 | XMS REPORT ---
Author Author OBINNA PRASAD [facility] eClinical[employer] Address Unknown Phone Unavailable Care Team Providers Care Drill Hand Name Role Phone OBINNA PRASAD CP Unavailable [...] Medications Procedures Procedure Coding System Code Date URINALYSIS, AUTO, W/O SCOPE CPT-4 83112 Jul 07, 2016 [facility] NOBLL Jul 07, 2016 Results No Known Results Summary Purpose [employer]ClinicalWorks Submission
--- OUTSIDE RECORDS SUMMARY | 2017-05-28 12:04 | XMS REPORT ---
Author Author OBINNA PRASAD [employer] Address Unknown Phone Unavailable Care Team Providers Care Ultrasound Applications Specialist Name Role Phone OBINNA PRASAD CP Unavailable Allergies, Adverse Reactions, Alerts Substance Reaction Event Type Hydrocodone Bitartrate Info Not Available Drug Allergy Coumadin Info Not Available Drug Allergy Problems Problem Type Condition Code Onset Dates Condition Status Problem Hypothyroidism, unspecified hypothyroidism type E03.9 Active Problem Nocturnal hypoxia G47.34 Active Problem Irritable bowel syndrome without diarrhea K58.9 Active Problem Tobacco use Z72.0 Active Problem Persistent atrial fibrillation I48.1 Active Problem 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 Active Problem Other chronic pain G89.29 Active Problem Chronic obstructive pulmonary disease, unspecified COPD type J44.9 Active Problem Essential hypertension I10 Active Problem Anxiety F41.9 Active Assessment GERD (gastroesophageal reflux disease) K21.9 Active Assessment Rectal bleeding K62.5 Active Problem Hyponatremia E87.1 Active Medications Medication Code System Code Instructions Start Date End Date Status Dosage Pepcid [facility] [address]-52 40 MG Orally Once a day Aug 21, 2015 1 tablet Loratadine [facility] 86527810316 10 MG Orally Once a day 1 Tablet by Oral route 1 time per day Spiriva HandiHaler [facility] 59709321025 18 MCG Inhalation Once a day 1 capsule Albuterol Sulfate [facility] 97434584990 (2.5 MG/3ML) 0.083% USE ONE VIAL PER NEBULIZER THREE TIMES DAILY NEEDED FOR SHORTNESS OF BREATH Dexamethasone [facility] [address]-79 1 MG Orally Once a day x 1 dose between 11 pm & midnight the night before lab. Then come in at 8 am the next morning for lab draw April 10, 2015 1 tablet Methocarbamol [facility] [address]-99 750 mg Oct 09, 2014 take 1 tablets by Oral route 3 times per day duloxetine ND 0 60 mg Oct 14, 2014 take 1 capsule by Oral route 2 times per day Furosemide [facility] 37971633280 20 MG take 1 tablet by Oral route 1 time per day PRN Lisinopril [facility] [address]-16 20 mg Oct 09, 2014 take 1 tablet (20 mg) by oral route once daily Nasonex [facility] [address]-99 50 MCG/ACT Nasally Once a day April 04, 2015 2 sprays in each nostril Oxycodone-Acetaminophen [facility] [address]-16 7.5-325 MG Orally every 4 hours 1 tablet as needed Mucinex [facility] [address]-19 600 MG Orally every 12 hrs 1 tablet as needed Cardizem CD [facility] [address]-24 360 mg Oct 09, 2014 take 1 capsule ( 360 mg) by oral route once daily Pradaxa [facility] [address]-70 150 mg Oct 09, 2014 take 1 capsule (150 mg) by oral route 2 times per day Symbicort [facility] [address]-68 160-4.5 mcg/actuation November 28, 2014 inhale 2 puffs by inhalation route 2 times per day in the morning and evening Levothyroxine Sodium [facility] [address]-61 50 MCG Orally Once a day April 10, 2015 1 tablet Alendronate Sodium [facility] [address]-04 70 MG Orally by oral route once weekly in the morning, at least 30 min before first food, beverage, or medication of day February 12, 2015 1 tablet Amitiza [facility] 85365297819 24 MCG Orally Twice a day 1 capsule with food Mirtazapine [facility] 90226971729 30 MG take 1 tablet (30 mg) by oral route once daily before bedtime Metoprolol Succinate [facility] 0 200 mg Oct 09, 2014 take 1 tablet (200 mg) by oral route once daily Procedures Procedure Coding System Code Date [facility] VISIT ESTABLISHED PATIENT CPT-4 G0467 Aug 21, 2015 Office Visit, Est Pt., Level 3 CPT-4 14921 Aug 21, 2015 TEST FOR BLOOD, FECES CPT-4 19328 Aug 21, 2015 Vital Signs Date/Time: Aug 21, 2015 Temperature 97.5 F Weight 144.2 lbs Height 64 in BMI 24.75 Index Blood Pressure Diastolic 70 mmHg Blood Pressure Systolic 118 mmHg Cardiac Monitoring Heart Rate 70 bpm Results Name Result Date Reference Range Unit Abnormality Flag HEMOCCULT (IN HOUSE) ----RESULTS POSITIVE [id number] ----Control + [id number] ----Lot # [id number] ----Exp date [id number] Summary Purpose eClinicalWorks Submission
--- OUTSIDE RECORDS SUMMARY | 2017-05-28 12:04 | XMS REPORT ---
Author Author SHANICE OBINNA Organization [facility] Address [address] [place] [address] Care Team Providers Care Garment Cutter Name Role Phone OBINNA PRASAD Unavailable PROBLEMS Type Condition ICD9-CM Code [id number] Code Onset Dates Condition Status SNOMED Code Problem Chronic obstructive pulmonary disease, unspecified COPD type J44.9 Active 95606709 Problem Essential hypertension I10 Active 38973084 Problem Nocturnal hypoxia G47.34 Active 122924069 Problem Primary insomnia F51.01 Active 5821982 Problem Osteoporosis M81.0 Active 36772625 Problem 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 Active 4506349136976741 Problem Hyponatremia E87.1 Active 45028850 Problem Allergic rhinitis, unspecified allergic rhinitis trigger, unspecified rhinitis seasonality J30.9 Active 36771164 Problem Rectal bleeding K62.5 Active 28710938 Problem Anxiety F41.9 Active 52973496 Problem 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 Active 607685360 Problem Irritable bowel syndrome without diarrhea K58.9 Active 15137735 Problem Persistent atrial fibrillation I48.1 Active 296749309 Problem Tobacco use Z72.0 Active 498165622 Problem Other chronic pain G89.29 Active 18614488 Problem Other nonspecific abnormal finding of lung field R91.8 Resolved 075951036 Problem Hypothyroidism, unspecified hypothyroidism type E03.9 Active 63677002 ALLERGIES Unknown Allergies SOCIAL HISTORY No smoking Hx information available PLAN OF CARE VITAL SIGNS MEDICATIONS Unknown Medications RESULTS No Results PROCEDURES No Known procedures IMMUNIZATIONS No Known Immunizations
--- OUTSIDE RECORDS SUMMARY | 2017-05-28 12:04 | XMS REPORT ---
Author Author OBINNA PRASAD Organization [facility] Address [address] [place] [address] Care Team Providers Care Senior Ux Developer Name Role Phone OBINNA PRASAD Unavailable PROBLEMS Type Condition ICD9-CM Code [id number] Code Onset Dates Condition Status SNOMED Code Problem Other chronic pain G89.29 Active 19336680 Problem Essential hypertension I10 Active 43639145 Problem Anxiety F41.9 Active 04206220 Problem Allergic rhinitis, unspecified allergic rhinitis trigger, unspecified rhinitis seasonality J30.9 Active 38827454 Problem Osteoporosis M81.0 Active 85485605 Problem Tobacco use Z72.0 Active 292019897 Problem Persistent atrial fibrillation I48.1 Active 453819066 Problem Rectal bleeding K62.5 Active 11428116 Problem 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 Active 754144103 Problem Other nonspecific abnormal finding of lung field R91.8 Resolved 352310423 Problem Hypothyroidism, unspecified hypothyroidism type E03.9 Active 09858467 Problem Irritable bowel syndrome without diarrhea K58.9 Active 91247591 Problem 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 Active 5674556774886740 Problem Nocturnal hypoxia G47.34 Active 905614846 Problem Hyponatremia E87.1 Active 37971213 Problem Chronic obstructive pulmonary disease, unspecified COPD type J44.9 Active 79206333 ALLERGIES Unknown Allergies SOCIAL HISTORY No smoking Hx information available PLAN OF CARE VITAL SIGNS MEDICATIONS Unknown Medications RESULTS Name Result Date Reference Range CBC Please note WBC RBC Hemoglobin Hematocrit MCV MCH MCHC RDW Platelets NRBC Neutrophils Lymphs Monocytes Eos Basos Immature Granulocytes Neutrophils (Absolute) Lymphs (Absolute) Monocytes(Absolute) Eos (Absolute) Baso (Absolute) Immature Grans (Abs) Immature Cells Bands Blasts/blast like cells Megakaryocytes Metamyelocytes Myelocytes Other, Lineage Uncertain Promyelocytes Hematology Comments: Request Problem Request Problem CMP (OUTSIDE LAB) PROCEDURES Procedure Date Ordered Related Diagnosis Body Site LAB NOT BILLED BY [facility] Jun 09, 2016 IMMUNIZATIONS No Known Immunizations
--- OUTSIDE RECORDS SUMMARY | 2017-05-28 12:04 | XMS REPORT ---
Author Author OBINNA PRASAD [facility] eClinical[employer] Address Unknown Phone Unavailable Care Team Providers Care Joinery Machinist Name Role Phone OBINNA PRASAD CP Unavailable [...] Instructions Start Date End Date Status Dosage Symbicort [facility] [address]-21 160-4.5 mcg/actuation November 28, 2014 inhale 2 puffs by inhalation route 2 times per day in the morning and evening Results No Known Results Summary Purpose eClinicalWorks Submission
--- OUTSIDE RECORDS SUMMARY | 2017-05-28 12:04 | XMS REPORT ---
Author Author OBINNA PRASAD [facility] e[employer] Address Unknown Phone Unavailable Care Team Providers Care Reforestation Worker Name Role Phone OBINNA PRASAD CP Unavailable [...]
--- OUTSIDE RECORDS SUMMARY | 2017-05-28 12:05 | XMS REPORT ---
Author Author OBINNA PRASAD [facility] eClinicalWorks Address Unknown Phone Unavailable Care Team Providers Care Embossograph Operator Name Role Phone OBINNA PRASAD CP [...] Instructions Start Date End Date Status Dosage Omeprazole [facility] [address]-58 20 MG Orally Once a day May 21, 2015 1 capsule Results No Known Results Summary Purpose [employer]ClinicalWorks Submission
[2017-05-28] MEDS ORDERED: NS IV 1000 ML 1,000 ML IV ONE (12:08)
[2017-05-28] MEDS ORDERED: MUPIROCIN 2% OINT 22 GM (BACTROBAN) TUBE ONE (12:15)
[2017-05-28 12:18] LABS: BASOPHILS # (AUTO) 0.1 10^3/uL (0.0-0.1); BASOPHILS % (AUTO) 1 % (0-10); EOSINOPHILS # (AUTO) 0.2 10^3/uL (0.0-0.3); EOSINOPHILS % (AUTO) 2 % (0-10); LYMPHOCYTES % (AUTO) 22 % (12-44); MEAN CORPUSCULAR HEMOGLOBIN 28 PG (25-34); MEAN CORPUSCULAR HGB CONC 33 G/DL (32-36); MEAN CORPUSCULAR VOLUME 83 FL (80-99); MEAN PLATELET VOLUME 8.7 FL (7.4-10.4); MONOCYTES # (AUTO) 0.9 X 10^3 (0.0-1.0); MONOCYTES % (AUTO) 10 % (0-12); NEUTROPHILS # (AUTO) 5.8 X 10^3 (1.8-7.8); NEUTROPHILS % (AUTO) 65 % (42-75); PLATELET COUNT 420 10^3/uL (130-400); RED BLOOD COUNT 4.23 10^6/uL (4.35-5.85); RED CELL DISTRIBUTION WIDTH 15.2 % (10.0-14.5)
[2017-05-28 12:29] LABS: ALANINE AMINOTRANSFERASE 10 U/L (0-55); ALBUMIN 3.4 GM/DL (3.2-4.5); ANION GAP 10 MMOL/L (5-14); ASPARTATE AMINO TRANSFERASE 16 U/L (5-34); BILIRUBIN,TOTAL 0.2 MG/DL (0.1-1.0); BLOOD UREA NITROGEN 10 MG/DL (7-18); BUN/CREATININE RATIO 12; CALCIUM 8.6 MG/DL (8.5-10.1); CARBON DIOXIDE 31 MMOL/L (21-32); CHLORIDE 93 MMOL/L (98-107); CREATININE SERUM 0.84 MG/DL (0.60-1.30); GFR ESTIMATED > 60; GLUCOSE 83 MG/DL (70-105); LIPASE 8 U/L (8-78); SODIUM 134 MMOL/L (135-145); TOTAL PROTEIN 5.9 GM/DL (6.4-8.2)
[2017-05-28] MEDS ORDERED: morphine INJ 10 MG/ML 1ML (SYR OR VIAL) IVP STA (12:42)
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
[2017-05-28 12:53] LABS: BILIRUBIN,URINE NEGATIVE (NEGATIVE); KETONES,URINE NEGATIVE (NEGATIVE); LEUKOCYTE ESTERASE ,URINE 1+ (NEGATIVE); NITRITE,URINE NEGATIVE (NEGATIVE); PH,URINE 8 (5-9); PROTEIN,URINE NEGATIVE (NEGATIVE); UROBILINOGEN,URINE NORMAL (NORMAL)
[2017-05-28 13:04] LABS: WBC,URINE RARE /HPF
--- NOTE | 2017-05-28 13:18 | Diagnostic Imaging Report ---
INDICATION: Chest pain and constipation. COMPARISON: 09/30/16. FINDINGS: Lungs are clear. No pleural effusion or pneumothorax. Heart is enlarged. Atherosclerotic and tortuous aorta is unchanged. Chronic compression fracture of the lower thoracic vertebra. Surgical changes at the GE junction are again seen. IMPRESSION: 1. No acute cardiopulmonary process. Dictated by: Dictated on workstation # [id number]
--- NOTE | 2017-05-28 13:19 | Diagnostic Imaging Report ---
PROCEDURE: CT head without contrast. TECHNIQUE: Multiple contiguous axial images were obtained through the brain without the use of intravenous contrast. INDICATION: Fall one week prior with loss of consciousness. Patient reportedly on blood thinners. COMPARISON is made with the previous study from October 14, 2014. FINDINGS: There is global age-appropriate cerebral volume loss demonstrated. There are background chronic microvascular changes in the white matter which are not significantly changed. There is no territorial loss of membreno-white differentiation to suggest acute ischemia. There is no evidence of acute hemorrhage. There is no abnormal extra-axial fluid collection. The basilar cisterns are patent. Posterior fossa demonstrates no acute process. Rather mild atherosclerotic calcification within the vessels at the skull base. The mastoids are clear and the visualized portions of the paranasal sinuses are clear. No acute calvarial abnormality is demonstrated. There is no significant soft tissue swelling. IMPRESSION: 1. Global age-appropriate cerebral volume loss with background chronic microvascular changes within the white matter. There is no CT evidence of acute intracranial abnormality. Specifically, there is no evidence of intracranial hemorrhage. Dictated by: Dictated on workstation # [id number]
--- NOTE | 2017-05-28 13:26 | Diagnostic Imaging Report ---
EXAM: Two views of the abdomen. INDICATION: Constipation. FINDINGS: The visualized lung bases appear clear. There is cardiac enlargement. The bowel gas pattern demonstrates a gas-filled loop of small bowel within the low pelvis which appears mildly dilated and measures up to approximately 2.3 cm. There is an air-fluid level demonstrated within this loop of bowel projecting over of the left iliac wing. There is a large degree of stool present within the colon. There is a marked lumbar levoscoliosis with multilevel degenerative disc disease. IMPRESSION: 1. A large degree of stool demonstrated within the colon. There are gas distended loops of small bowel. One of these demonstrates an air-fluid level in the upright view. By plain radiography, the small bowel is not significantly dilated. Repeat imaging could be considered if continued symptomatology. 2. Lung bases appear clear. Cardiomegaly is noted. Dictated by: Dictated on workstation # [id number]
[2017-05-28] MEDS ORDERED: MUPI15CR TP (13:49)
[2017-05-28 14:18] VITALS: BP 143/73
[2017-05-28] MEDS ORDERED: MUPIROCIN 2% OINT 22 GM (BACTROBAN) TUBE TOP SCH (21:00)
== END 2017-05-28 14:18 | disposition home or self-care (01) ==
LOC: EDUNIT# 11:52 → ER 11:53
DX: S09.90XA Unspecified injury of head, initial encounter (principal); T21.25XA Burn of second degree of buttock, initial encounter; T24.292A Burn of second degree of multiple sites of left lower limb, except ankle and foot, initial encounter; T22.211A Burn of second degree of right forearm, initial encounter; T31.0 Burns involving less than 10% of body surface; J43.9 Emphysema, unspecified; I48.91 Unspecified atrial fibrillation; I25.10 Atherosclerotic heart disease of native coronary artery without angina pectoris; I10 Essential (primary) hypertension; K21.9 Gastro-esophageal reflux disease without esophagitis; F41.9 Anxiety disorder, unspecified; E03.9 Hypothyroidism, unspecified; F17.200 Nicotine dependence, unspecified, uncomplicated; Z87.19 Personal history of other diseases of the digestive system; Z87.09 Personal history of other diseases of the respiratory system; Z82.49 Family history of ischemic heart disease and other diseases of the circulatory system; Z79.82 Long term (current) use of aspirin; W01.0XXA Fall on same level from slipping, tripping and stumbling without subsequent striking against object, initial encounter; X11.8XXA Contact with other hot tap-water, initial encounter; Y92.009 Unspecified place in unspecified non-institutional (private) residence as the place of occurrence of the external cause
CPT/HCPCS: 36415; 70450; 71020; 74020; 80053; 81000; 83690; 85025; 87070; 87205; 96361; 96374

== ENCOUNTER → 2017-06-09 | Outpatient (CLI) | payer MEDICARE, MEDICAID ==
[~2017-06-09] MED LIST changes: +METO200T32 PO; -METO200T4 PO; +MUPI15CR TP
== END ==
LOC: WOUNDCARE 09:44
PROVIDERS: ATTEND Internal Medicine
DX: T21.25XA Burn of second degree of buttock, initial encounter (principal); T24.212A Burn of second degree of left thigh, initial encounter; T65.292A Toxic effect of other tobacco and nicotine, intentional self-harm, initial encounter; X12.XXXA Contact with other hot fluids, initial encounter; Y93.G3 Activity, cooking and baking
CPT/HCPCS: 16020

== ENCOUNTER → 2017-06-14 | Outpatient (CLI) | payer MEDICARE, MEDICAID | LOC: WOUNDCARE 11:19 | PROVIDERS: ATTEND Nurse Practitioner | DX: T21.25XA Burn of second degree of buttock, initial encounter (principal); T24.212A Burn of second degree of left thigh, initial encounter; T65.292A Toxic effect of other tobacco and nicotine, intentional self-harm, initial encounter; X12.XXXA Contact with other hot fluids, initial encounter; Y93.G3 Activity, cooking and baking | CPT/HCPCS: 16020 ==

== ENCOUNTER → 2017-08-22 | Outpatient (CLI) | payer MEDICARE, MEDICAID ==
[~2017-08-22] MED LIST changes: +CATHETER FLUSH 10 ML SYR IV PRN; +IOHEXOL 350 MG/ML 100 ML (OMNIPAQUE 350) VIAL IV ONE; -METO200T32 PO; +METO200T4 PO; +NS 100 ML (IVPB) BAG IV ONE
[2017-08-22 12:53] LABS: ALBUMIN 3.8 GM/DL (3.2-4.5); ANION GAP 9 MMOL/L (5-14); BLOOD UREA NITROGEN 16 MG/DL (7-18); BUN/CREATININE RATIO 19; CALCIUM 8.7 MG/DL (8.5-10.1); CARBON DIOXIDE 28 MMOL/L (21-32); CHLORIDE 96 MMOL/L (98-107); CREATININE SERUM 0.84 MG/DL (0.60-1.30); GFR ESTIMATED > 60; GLUCOSE 62 MG/DL (70-105); PHOSPHORUS 3.4 MG/DL (2.3-4.7); POTASSIUM 4.3 MMOL/L (3.6-5.0); SODIUM 133 MMOL/L (135-145)
--- NOTE | 2017-08-22 18:08 | Diagnostic Imaging Report ---
PROCEDURE: CT abdomen with and without contrast. TECHNIQUE: Multiple contiguous axial CT images of the abdomen were obtained prior to and after intravenous administration of iodinated contrast. INDICATION: Adrenal mass. 100 mL of Omnipaque 350 is administered intravenously. COMPARISON: 07/22/15. FINDINGS: There is a left adrenal mass measuring 2.9 x 1.7 cm comparable to prior measurements of 3.2 x 1.7 cm on 07/13/2015. The low density on the unenhanced phase and significant washout are suggestive of adrenal adenoma. The stability since 2014 supports that. There is also another stable nodule in the right adrenal measuring 1.3 cm. This is also most likely an adenoma and is stable from the previous study. The liver, the spleen, and the pancreas appear unremarkable. The gallbladder has been removed with cholecystectomy clips seen. There is stable dilatation of the CBD without significant intrahepatic biliary dilatation and without an obstructive mass identified around the ampulla of Vater. There is moderate atrophy of the right kidney stable from the previous exam. Symmetric renal parenchymal enhancement and excretion, however, is seen. There is no hydronephrosis. The abdominal aorta is normal in caliber. No para-aortic significantly enlarged lymph node is seen. The lung bases appear clear. The osseous structures demonstrate scoliosis convex to the left in the lumbar spine centered around L2/L3 level. There is a compression fracture at T12 level similar to 07/22/2015. IMPRESSION: Stable bilateral adrenal nodules larger on the left side up to 2.9 cm in size from 2015 likely related to adrenal adenomas. Dictated by: Dictated on workstation # [id number]
== END ==
LOC: RAD 12:20
PROVIDERS: ATTEND Internal Medicine Endocrinology, Diabetes & Metabolism
DX: E27.8 Other specified disorders of adrenal gland (principal); E87.1 Hypo-osmolality and hyponatremia; E55.9 Vitamin D deficiency, unspecified
CPT/HCPCS: 36415; 74170; 80069

== ENCOUNTER 2017-09-08 11:10 | Outpatient (CLI) | payer MEDICARE, MEDICAID ==
[~2017-09-08] VITALS: Ht 160 cm; Wt 64.4 kg
[2017-09-08] MEDS ORDERED: methylPREDNISolone 80 MG/ML (DEPO MEDROL) VIAL ONE (11:53)
[2017-09-08 12:02] VITALS: BP 132/73
[2017-09-08 13:19] VITALS: BP 153/91
--- NOTE | 2017-09-10 03:40 | OPERATIVE REPORT ---
DATE OF SERVICE: 09/08/2017 DIAGNOSIS: Lumbar radiculopathy. PROCEDURE: Caudal epidural steroid injection. PROCEDURE IN DETAIL: The patient was placed in the prone position on the examination table. The area over the sacrum from the lumbosacral junction down to and past the sacrococcygeal junction was prepped with anesthetic. Under fluoroscopy guidance, the area identified as the sacral sulcus was found and using a syringe with lidocaine, local was injected. Under fluoroscopy guidance, 25-gauge and 27-gauge 3-1/2 inch spinal needles were then directed down into the sacral sulcus. Dye was injected. We obtained a crosstable fluoroscopy image and saw the dye was an epidural flow in the sacral vault. Negative aspiration for spinal fluid or blood. At this time, we switched over and injected 80 mg of Depo-Medrol was injected under fluoroscopy with washout of contrast. The patient tolerated procedure well without any incident. Job ID: [id number] DocumentID: [id number] Dictated Date: 09/09/2017 18:59:31 Molder Hand Date: 09/10/2017 03:40:13 Dictated By: DO ADORE NEGRETE
== END 2017-09-08 13:21 | disposition home or self-care (01) ==
LOC: CARD 11:10
PROVIDERS: ATTEND Pain Medicine Interventional Pain Medicine
DX: M54.16 Radiculopathy, lumbar region (principal)
CPT/HCPCS: 62323

== ENCOUNTER → 2017-09-08 | Outpatient (CLI) | payer MEDICARE, MEDICAID ==
[~2017-09-08] MED LIST changes: -CATHETER FLUSH 10 ML SYR IV PRN; -IOHEXOL 350 MG/ML 100 ML (OMNIPAQUE 350) VIAL IV ONE; -NS 100 ML (IVPB) BAG IV ONE
--- NOTE | 2017-09-08 14:06 | Diagnostic Imaging Report ---
Examination: DEXA scan. Indication: osteopenia Technique: Bone mineral density estimated based on dual energy radiography over the lumbar spine and femoral necks, was performed. Findings: The lumbar spine T-score is -3.6. This is 4.8% decreased density measurements compared to 09/27/2011. T score over the left femoral neck is -2.8 and on the right side is -2.5. This is 14% decreased density measurements compared to 2011. IMPRESSION: Osteoporosis.. Dictated by: Dictated on workstation # [id number]
== END ==
LOC: RAD 11:10
PROVIDERS: ATTEND Family Medicine
DX: Z12.31 Encounter for screening mammogram for malignant neoplasm of breast (principal); M81.0 Age-related osteoporosis without current pathological fracture
CPT/HCPCS: 77067; 77080

== ENCOUNTER 2018-02-23 05:48 | Outpatient (CLI) | payer MEDICARE, MEDICAID ==
[~2018-02-23] VITALS: Ht 160 cm; Wt 62.6 kg
[~2018-02-23 05:48] MED LIST changes: -METO200T4 PO; +METO200T48 PO
[2018-02-23] MEDS ORDERED: LEVO75TA6 PO (11:56)
[2018-02-23] MEDS ORDERED: ALEN70TA47 PO (11:56)
[2018-02-23] MEDS ORDERED: OMEP20CA12 PO (11:56)
[2018-02-23] MEDS ORDERED: UMEC62.5 IH (11:56)
[2018-02-23] MEDS ORDERED: METH150T PO (11:56)
[2018-02-23] MEDS ORDERED: RT-ALBUINH IH (11:56)
[2018-03-01] MEDS ORDERED: MORP30TA60 PO (09:43)
== END 2018-02-23 11:59 ==
LOC: PREOP 05:48
PROVIDERS: ATTEND Surgery
DX: Z01.818 Encounter for other preprocedural examination (principal)

== ENCOUNTER → 2018-06-09 | Outpatient (CLI) | payer MEDICARE, MEDICAID ==
[~2018-06-09] MED LIST changes: +ALEN70TA47 PO; +LEVO75TA6 PO; +METH150T PO; +MORP30TA60 PO; +RT-ALBUINH IH; +UMEC62.5 IH
[2018-06-09] MEDS: NS 250 ML (IVPB) BAG IV ONE (13:19)
[2018-06-09] MEDS: IOHEXOL 350 MG/ML 100 ML (OMNIPAQUE 350) VIAL IV ONE (13:19)
--- NOTE | 2018-06-09 15:39 | Diagnostic Imaging Report ---
CLINICAL INDICATION: Patient with right-sided epiglottic mass. EXAM: Axial CT scan of the neck soft tissue performed with 75 cc of Omnipaque 350 IV contrast. Coronal and sagittal reformatted images were created for better evaluation. COMPARISON: CT scan of the neck performed without IV contrast dated 03/13/2015. FINDINGS: There is interval development of a 2.0 cm x 1.9 cm x 2.0 cm (AP x Trans x CC) heterogeneously enhancing lobulated mass which is centered at the base of the right epiglottis region. This mass extends along the right pharyngoepiglottic fold and right aryepiglottic fold. There is encroachment upon the right vallecula and associated asymmetry of the airway of the supraglottic larynx with gaxw-yz-xewhmtng narrowing seen. The glottis is symmetric and unremarkable. This mass is seen roughly 1.3 cm superior to the level of the true vocal cords/glottis. This mass does not extend across midline. This mass does not involve the hyoid cartilage, arytenoid cartilages, or thyroid cartilage. The remainder of the nasopharynx, oropharynx, hypopharynx, and remainder of the laryngeal soft tissue structures are unremarkable. There are no significantly enlarged neck lymph nodes. All of the visualized neck lymph nodes are less than 10 mm in short axis with none looking more suspicious than the other. There are upper mediastinal lymph nodes seen with the largest one measuring 11 mm x 6 mm in the region lateral to the aortic arch. The thyroid gland and bilateral salivary glands are unremarkable. Visualized portions of the oral cavity, sublingual space, tongue, and submandibular regions are unremarkable. There is atherosclerotic disease involving bilateral carotid arteries with the left CCA bifurcation the worst. There is at least moderate stenosis involving the origin of the left cervical ICA/distal left CCA region. There is cervical spine degenerative disease with hypertrophic vertebral body spurs at the C5-C6 and C6-C7 levels with severe loss of intervertebral disc height, bilateral uncinate spurs, and suggestion of diffuse disc bulge. There is at least moderate central canal narrowing at the C5-C6 level and at least mild central canal narrowing at the C6-C7 level. 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 Limited visualization of the intracranial structures is unremarkable. Visualized upper lung robles are clear. Paranasal sinuses and temporal bone structures show no significant abnormality. IMPRESSION: 1: There is interval development of a lobulated heterogeneously enhancing mass involving the right side of the supraglottic larynx, which is concerning for neoplasm. This mass appears centered at the base of the right side of the epiglottis which slightly extends to the right pharyngoepiglottic fold and along the right aryepiglottic fold. This mass is roughly 1.3 cm superior to the true vocal cords/glottis. There is atim-qe-gmzjcdoh narrowing of the airway due to this mass. 2: There is no significant neck lymphadenopathy. There are nonspecific upper mediastinal lymph nodes seen which are not significantly enlarged. 3: There is at least moderate stenosis involving the distal left CCA/cervical left ICA junction region. Ultrasound of the carotid arteries would help better evaluate. Dictated by: Dictated on workstation # [id number]
== END ==
LOC: RAD 12:49
PROVIDERS: ATTEND Otolaryngology Otolaryngology/Facial Plastic Surgery
DX: J38.7 Other diseases of larynx (principal); I65.22 Occlusion and stenosis of left carotid artery; R59.0 Localized enlarged lymph nodes
CPT/HCPCS: 70491

== ENCOUNTER → 2018-06-22 | Outpatient (CLI) | payer MEDICARE, MEDICAID ==
[~2018-06-22] MED LIST changes: +CATHETER FLUSH 10 ML SYR IV PRN; +REGADENOSON 0.4 MG/5 ML SYR (LEXISCAN) IV ONE
[2018-06-22 09:29] VITALS: BP 163/87
--- NOTE | 2018-06-22 13:19 | STRESS TEST ---
DATE OF SERVICE: 06/22/2018 RESTING AND POST REGADENOSON TECHNEITIUM-99M TETROFOSMIN SPECT CT IMAGING ORDERING PHYSICIAN: Dr. Neri. PRIMARY PHYSICIAN: Dr. Vidal. CLINICAL DIAGNOSIS: Coronary artery disease. Baseline images were carried out after injection of 9.57 mCi of technetium-99m tetrofosmin. This was followed by 0.4 mg regadenoson and 28.5 mCi technetium-99m tetrofosmin for stress imaging. The electrocardiogram showed atrial fibrillation with a controlled ventricular response throughout the study. There is nonspecific ST abnormality, which did not change with the regadenoson infusion. The patient noted some shortness of breath following regadenoson infusion, which is resolved in a few minutes. Review of images at rest and following stress does not indicate any significant perfusion defects consistent with significant myocardial ischemia or infarction. Gated images show normal global left ventricular systolic function, normal regional wall motion. Left ventricular ejection fraction is calculated to be 66%. Left ventricular end diastolic volume is 67 mL. TID is absent (0.96). CONCLUSIONS: 1. No evidence of significant myocardial ischemia or infarction on this study. 2. Normal regional wall motion. 3. Normal global left ventricular systolic function with a calculated ejection fraction of 66%. 4. Persistent atrial fibrillation is seen during the study. Job ID: [id number] DocumentID: [id number] Dictated Date: 06/22/2018 13:06:05 Product Marketer Date: 06/22/2018 13:19:09 Dictated By: TERRY NERI MD, MA, FACP, FACC,
== END ==
LOC: CARD 08:06
PROVIDERS: ATTEND Internal Medicine Cardiovascular Disease
DX: I25.10 Atherosclerotic heart disease of native coronary artery without angina pectoris (principal); I11.9 Hypertensive heart disease without heart failure; I48.0 Paroxysmal atrial fibrillation
CPT/HCPCS: 78452; 93017

== ENCOUNTER 2018-06-28 09:42 | Outpatient (CLI) | payer MEDICARE, MEDICAID ==
[~2018-06-28] VITALS: Ht 160 cm; Wt 65.1 kg
[~2018-06-28 09:42] MED LIST changes: -CATHETER FLUSH 10 ML SYR IV PRN; -REGADENOSON 0.4 MG/5 ML SYR (LEXISCAN) IV ONE
[2018-06-28 09:59] VITALS: BP 160/81
--- NOTE | 2018-06-28 10:39 | Diagnostic Imaging Report ---
INDICATION: Epiglottic lesion. This study is performed prior to epiglottic surgery. TECHNIQUE: PA and lateral views of the chest were obtained. COMPARISON: 05/28/2017. FINDINGS: There is mild cardiomegaly. Mild air trapping is also noted. Surgical clips are seen in the region of the gastroesophageal junction and gallbladder fossa. No significant pleural fluid is identified. There is anterior wedging of a lower thoracic vertebra, similar to the previous exam. IMPRESSION: Mild cardiomegaly and unchanged chronic findings in the chest; otherwise, no acute abnormality is seen. Dictated by: Dictated on workstation # [id number]
[2018-06-28] MEDS ORDERED: FLUT9.9S NS (15:38)
[2018-06-28] MEDS ORDERED: MORP1CAP11 PO (15:38)
[2018-06-29] MEDS ORDERED: TRAM50TA2 PO (12:26)
== END 2018-06-28 15:40 ==
LOC: PREOP 09:42
PROVIDERS: ATTEND Otolaryngology Otolaryngology/Facial Plastic Surgery
DX: Z01.810 Encounter for preprocedural cardiovascular examination (principal); Z01.811 Encounter for preprocedural respiratory examination; Z11.2 Encounter for screening for other bacterial diseases; J38.7 Other diseases of larynx
CPT/HCPCS: 71046; 87081; 93005

== ENCOUNTER 2018-06-29 08:09 | Day surgery (SDC) | payer MEDICARE, MEDICAID ==
[~2018-06-29] VITALS: Ht 160 cm; Wt 65.1 kg
[~2018-06-29 08:09] MED LIST changes: +FLUT9.9S NS; +MORP1CAP11 PO
[2018-06-29 08:20] VITALS: BP 180/86
[2018-06-29] MEDS: LACTATED RINGERS 1,000 ML IV PRN ×2 (08:35→10:15)
--- OUTSIDE RECORDS SUMMARY | 2018-06-29 08:51 | XMS REPORT ---
Author Author SHANICEOBINNA GARNICA [facility] Address [address] [place] [address] Care Team Providers Care Regional Economic Liaison Name Role Phone OBINNA PRASAD Unavailable PROBLEMS Type Condition ICD9-CM Code FGE15-ND Code Onset Dates Condition Status SNOMED Code Problem Rectal bleeding K62.5 Active 65861503 Problem Allergic rhinitis, unspecified allergic rhinitis trigger, unspecified rhinitis seasonality J30.9 Active 65133779 Problem Osteoporosis M81.0 Active 24072825 Problem Paroxysmal atrial fibrillation I48.0 Active 020160294 Problem Anxiety F41.9 Active 47377100 Problem Chronic sore throat J31.2 Active 632367619 Problem 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 Active 79265623 Problem Drug induced constipation K59.03 Active 019062229868384 Problem Primary insomnia F51.01 Active 5754904 Problem Chronic pain syndrome G89.4 Active 712254954 Problem T12 compression fracture S22.080A Active 839882281 Problem Other nonspecific abnormal finding of lung field R91.8 Resolved 269146293 Problem Irritable bowel syndrome without diarrhea K58.9 Active 99179842 Problem 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 [address] [facility] [id number] [address] 16 Jun, 2018 [facility] [address], [place] [address] 21 May, 2018 Other chronic pain G89.29 [facility] [address] [address] 7[address] 19 May, 2018 Hyperkalemia E87.5 [facility] [address], [place] [address] 4876 18 May, 2018 Hyperkalemia E87.5 [facility] [id number] [place] [address] 89012- 1233 13 May, 2018 [facility] [id number] [place] [address] 90844- 9128 11 May, 2018 Other chronic pain G89.29 [facility] [id number] [place] [address] 87290- 3707 31 Apr, 2018 Hyperkalemia E87.5 [facility] [id number] [place] [address] 96347- 9287 Apr, [facility] [id number] [place] [address] 83163- 4252 Apr, Sore throat J02.9 ; Chronic sore throat J31.2 ; Otalgia, bilateral H92.03 ; Other chronic pain G89.29 ; Paroxysmal atrial fibrillation I48.0 ; Essential hypertension I10 ; Hypothyroidism, unspecified hypothyroidism type E03.9 ; Fatigue, unspecified type R53.83 ; 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 and Acute non-recurrent pansinusitis J01.40 [facility] [address], [place] [address] 7487 Apr, Chronic pain syndrome G89.4 [facility] [address] [place] [address] 69361- 3801 Apr, [facility] [address] [place] [address] 46088- 0400 Mar, [facility] [address] [place] [address] 00285- 2048 Mar, [facility] [address] [facility] [id number], [place] [address] 3592 Mar, Hypothyroidism, unspecified hypothyroidism type E03.9 [facility] [address] [facility] [id number], [place] [address] 5718 Mar, [facility] [address], [place] [address] 6122 Mar, Chronic pain syndrome G89.4 [facility] [id number] [address] 0910 Mar, [facility] [address] [facility] [id number] [place] [address] 61457- 8446 Mar, Chronic pain syndrome G89.4 [facility] [id number] [address]- 4362 Mar, [facility] [id number] [place] [address] 58698- 0508 Mar, Chronic pain syndrome G89.4 and Other chronic pain G89.29 [facility] [address], [place] [address] 6491 Feb, Chronic obstructive pulmonary disease, unspecified COPD type J44.9 [facility] [address] [facility] [id number], [place] [address] 7337 Feb, [facility] [address], [place] [address] 1890 Feb, [facility] [address] [facility] [id number], [place] [address] 5438 Feb, [facility] [address] [facility] [id number], [place] [address] 7213 Feb, [facility] [address] [facility] [id number], [place] [address] 1545 Feb, [facility] [address], [place] [address]- 5068 Feb, Other chronic pain G89.29 ; Rectal bleeding K62.5 and Chronic pain syndrome G89.4 [place] [id number] [place] [address] 77142- 2211 15 Feb, 2018 [place] [id number] [place] [address] 73866- 9543 14 Feb, 2018 [place] [address] 06317- 6518 Feb, Other chronic pain G89.29 ; Essential hypertension I10 ; Osteoporosis M81.0 ; Drug induced constipation K59.03 ; Chronic obstructive pulmonary disease, unspecified COPD type J44.9 ; Hypothyroidism, unspecified hypothyroidism type E03.9 ; 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 ; Right ear pain H92.01 and Sore throat J02.9 [place] [address] [address]- 6390 January, [place] [address] 85044- 0382 January, Low back pain M54.5 ; Other chronic pain G89.29 ; Pain in thoracic spine M54.6 and Neck pain M54.2 [place] [address] 45744- 0226 Dec, Low back pain M54.5 ; Other chronic pain G89.29 ; Pain in thoracic spine M54.6 and Neck pain M54.2 [place] [id number] [place] [address] 95781- 3796 Dec, 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 and Chronic obstructive pulmonary disease, unspecified COPD type J44.9 [place] [address] 17778- 8953 Dec, [place] [address] 89928- 4566 Dec, Hypothyroidism, unspecified hypothyroidism type E03.9 [place] [address] [place] [address]- 0113 Oct, Essential hypertension I10 [place] [id number] [place] [address] 32378- 5822 Oct, [facility] [id number] [place] [address] 24698- 1736 Sep, [place] [id number] [place] [address] 70068- 3549 Sep, 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 [place] [id number] [place] [address] 21450- 2827 Aug, Drug induced constipation K59.03 [place] [id number] [place] [address] 86730- 8907 Aug, [place] [id number] [place] [address] 34062- 4896 Jul, Other chronic pain G89.29 [place] [id number] [place] [address] 08975- 8903 Jul, [place] [id number] [place] [address] 68863- 7149 Jul, Well woman exam (no gynecological exam) Z00.00 ; Encounter for immunization Z23 ; Tobacco use Z72.0 and 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 [place] [id number] [place] [address] 37314- 2379 Jul, [place] [id number] [place] [address] 65078- 4447 Jul, Drug induced constipation K59.03 [place] [id number] [place] [address] 83934- 0972 Jun, Chronic obstructive pulmonary disease, unspecified COPD type J44.9 ; Tobacco use Z72.0 ; Hypothyroidism, unspecified hypothyroidism type E03.9 ; Other chronic pain G89.29 ; Drug induced constipation K59.03 and COPD exacerbation J44.1 [facility] [address], [place] [address]- 7418 Jun, [facility] [id number] [place] [address] 63238- 1195 Jun, [facility] [id number] [place] [address] 94785- 3559 Jun, Osteoporosis M81.0 [facility] [id number] [place] [address] 53356- 7923 Jun, [facility] [id number] [place] [address] 56425- 6570 Jun, Other chronic pain G89.29 [facility] [id number] [place] [address] 40921- 5919 Jun, Other chronic pain G89.29 [facility] [id number] [place] [address] 18327- 2629 Jun, Hypothyroidism, unspecified hypothyroidism type E03.9 [facility] [id number] [place] [address] 92041- 1292 Jun, [facility] [id number] [place] [address] 10702- 2606 May, [facility] [id number] [place] [address] 45195- 0365 May, COPD exacerbation J44.1 ; Pain of left lower extremity M79.605 ; Burn T30.0 ; Fatigue, unspecified type R53.83 ; Anemia, unspecified type D64.9 ; Adverse effect of other opioids, initial encounter T40.2X5A and Drug induced constipation K59.03 [facility] [id number] [place] [address] 74743- 7498 May, [facility] [id number] [place] [address] 86936- 0090 May, Burn T30.0 [facility] [id number] [place] [address] 69191- 6738 18 May, 2017 Other chronic pain G89.29 and Burn T30.0 [facility] [address] [place] [address] 97799- 9754 14 May, 2017 Other chronic pain G89.29 [facility] [address], [place] [address]- 8480 Apr, [facility] [id number] [place] [address] 22648- 3133 Apr, [facility] [address] [place] [address] 79426- 8051 Apr, [facility] [id number] [place] [address] 17604- 5395 Apr, [facility] [id number] [place] [address] 96296- 3000 Apr, Other chronic pain G89.29 [facility] [address] [place] [address] 99671- 2737 Apr, Fatigue, unspecified type R53.83 ; Hypothyroidism, unspecified hypothyroidism type E03.9 ; Other chronic pain G89.29 ; Essential hypertension I10 ; Persistent atrial fibrillation I48.1 ; Chronic obstructive pulmonary disease, unspecified COPD type J44.9 ; Nocturnal hypoxia G47.34 ; Irritable bowel syndrome without diarrhea K58.9 ; Hyponatremia E87.1 ; Osteoporosis M81.0 and Primary insomnia F51.01 [facility] [address], [place] [address]- 0268 Feb, [facility] [address], [place] [address]- 2207 January, [facility] [id number] [place] [address] 61279- 8251 Oct, Essential hypertension I10 [facility] [address] [address]- 8266 Sep, Shortness of breath R06.02 ; COPD with exacerbation J44.1 and Weakness R53.1 [place] [address] 10605- 4261 Sep, Drug-induced constipation K59.03 and Allergic rhinitis, unspecified allergic rhinitis trigger, unspecified rhinitis seasonality J30.9 [place] [address] 24719- 1426 Sep, [place] [address] 95421- 1637 Sep, [place] [address] 11632- 2514 Sep, [place] [address] 49980- 1321 Jul, [address] 53899- 8410 Jul, Other chronic pain G89.29 ; Hematuria R31.9 ; Screening for breast cancer Z12.39 ; Anxiety F41.9 ; Primary insomnia F51.01 ; Drug-induced constipation K59.03 and Encounter for immunization Z23 [address] 80276- 3807 Jul, 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 88201- 8627 Jun, 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 and Hyponatremia E87.1 [place] [address] 39016- 4911 Jun, 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 and Hyponatremia E87.[address] 64516- 9456 May, Hyponatremia E87.1 [place] [address] 35437- 7190 May, Essential hypertension I10 ; Tobacco use Z72.0 ; Hyponatremia E87.1 ; Allergic rhinitis, unspecified allergic rhinitis trigger, unspecified rhinitis seasonality J30.9 and Osteoporosis M81.0 [place] [id number] [place] [address] 66742- 2038 Mar, [place] [address] 07263- 0387 Mar, [place] [address] 86003- 3275 Mar, Hyponatremia E87.1 [place] [address] 89298- 6273 Feb, Essential hypertension I10 ; Hypothyroidism, unspecified hypothyroidism type E03.9 ; Tobacco use Z72.0 ; Hyponatremia E87.1 ; Rectal bleeding K62.5 ; COPD exacerbation J44.1 ; Current use of anticoagulant therapy Z79.01 ; Irritable bowel syndrome without diarrhea K58.9 ; Anxiety F41.9 ; Osteoporosis M81.0 ; 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 ; Persistent atrial fibrillation I48.1 ; Chronic obstructive pulmonary disease, unspecified COPD type J44.9 ; 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 [id number] [place] [address] 46610- 6134 Oct, [facility] [id number] [place] [address] 75907- 4024 09 Oct, 2015 [facility] [address] 82487- 2904 Aug, Chronic obstructive pulmonary disease, unspecified COPD type J44.9 [facility] [address] 91260- 2369 Aug, [facility] [address] 97681- 2282 10 Aug, 2015 Rectal bleeding K62.5 and GERD (gastroesophageal reflux disease) K21.9 [facility] [address] 98189- 2091 Jul, 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 [address] 22142- 0623 Jun, [facility] [id number] [place] [address] 02114- 3871 Jun, [facility] [id number] [place] [address] 41022- 3443 May, Adrenal mass 255.9 and Abnormal dexamethasone suppression test 794.6 [facility] [id number] [place] [address] 68987- 0379 May, Adrenal mass 255.9 [facility] [id number] [place] [address] 81274- 6611 May, [facility] [id number] [place] [address] 31482- 4842 May, Pneumonia 486 and COPD (chronic obstructive pulmonary disease) 496 [facility] [address], [place] [address]- 1367 17 May, 2015 [facility] [address], [place] [address]- 6162 14 May, 2015 [facility] [address], [place] [address]- 8410 11 May, 2015 [facility] [id number] [place] [address] 23034- 8498 10 May, 2015 [facility] [address] [place] [address] 07386- 2182 09 May, 2015 [facility] [id number] [place] [address] 90521- 7946 08 May, 2015 [facility] [id number] [place] [address] 60773- 7069 May, Adrenal mass 255.9 [facility] [address], [place] [address]- 9049 Apr, Adrenal mass 255.9 ; Hypothyroidism 244.9 ; Chronic sore throat 472.1 ; Atrial fibrillation 427.31 ; Hypertension 401.9 ; Generalized anxiety disorder 300.02 ; Chronic pain 338.29 and COPD (chronic obstructive pulmonary disease) 496 [facility] [address], [place] [address]- 3212 Apr, [facility] [address], [place] [address]- 4199 Apr, [facility] [address], [place] [address]- 3245 Mar, [facility] [id number] [place] [address] 80205- 1213 Mar, Adrenal mass 255.9 [facility] [address], [place] [address]- 7058 Mar, [facility] [id number] [place] [address] 30580- 3712 Mar, Chronic sore throat 472.1 and Adrenal mass 255.9 [facility] [address], [place] [address]- 8660 Mar, [facility] [address], [place] [address]- 6258 Feb, [facility] [id number] [place] [address] 85787- 5755 Feb, [facility] [address] [place] [address] 83110- 0034 Feb, [facility] [id number] [place] [address] 20524- 4339 Feb, [facility] [id number] [place] [address] 23922- 1865 Feb, [facility] [id number] [place] [address] 66677- [address]113 Feb, [facility] [id number] [address] Feb, [facility] [id number] [place] [address]- 1683 Feb, [facility] [id number] [address] Feb, [facility] [id number] [address] January, Adrenal mass 255.9 ; Hypothyroidism 244.9 ; Chronic sore throat 472.1 ; Atrial fibrillation 427.31 ; Hypertension 401.9 ; Generalized anxiety disorder 300.02 ; Chronic pain 338.29 and COPD (chronic obstructive pulmonary disease) 496 [facility] [id number] [address] January, [facility] [id number] [address] January, [facility] [address] [id number] [place] [address]68 January, Sinusitis 473.9 [facility] [place] [facility] [address] [id number] [place] [address]872 January, [facility] [place] [facility] [address] [id number] [place] [address] January, [facility] [place] [facility] [address] [id number] [place] [address]446 Dec, [facility] [place] [facility] [address] [id number] [place] [address]- 0739 Dec, [facility] [place] [facility] [address] [id number] [place] [address]390 Nov, [facility] [place] [facility] [address] [id number] [place] [address]- 9671 Nov, [facility] [place] [facility] [address] [id number] [place] [address]- 4534 Nov, [facility] [place] [facility] [address] [id number] [place] [address]- 9749 Nov, [facility] [place] [facility] [address] [facility] [id number] [place] [address]- 4774 Oct, [facility] [place] [facility] [address] [id number] [place] [address]249 Oct, [facility] [place] [facility] [address] [id number] [place] [address]- 9970 Oct, [facility] [place] [facility] [address] [id number] [place] [address]- 0045 Oct, [facility] [place] [facility] [address] [id number] [place] [address]- 3515 Oct, [facility] [place] [facility] [address] [id number] [place] [address]- 6047 Oct, [facility] [place] [facility] [id number] [address] Oct, 2014 [facility] [id number] [address] Oct, 2014 [facility] [id number] [address]26 Oct, 2014 [facility] [id number] [address] Oct, 2014 [facility] [id number] [address] 2469 Oct, 2014 [facility] [id number] [address] Oct, 2014 [facility] [id number] [address]99 Oct, 2014 [facility] [id number], [place] [address] Oct, [facility] [id number], [place] [address]- [address] Oct, [facility] [id number] [place] [address]- [address]274 Oct, [facility] [id number] [address] Oct, [facility] [facility] [address], [place] [address] Oct, [place] [id number], [place] [address] Sep, [facility] [address], [place] [address] Sep, [facility] [id number] [address] May, IMMUNIZATIONS No Known Immunizations SOCIAL HISTORY Never Assessed REASON FOR VISIT FYI PLAN OF CARE VITAL SIGNS MEDICATIONS Unknown Medications RESULTS Name Result Date Reference Range [facility] 2018-06-05 Request Problem Specimen Identification Status Please note Request Problem Sodium, Serum Potassium, Serum Chloride, Serum Carbon Dioxide, Total Ambig Tad BMP8 Default BUN Creatinine, Serum BUN/Creatinine Ratio eGFR If NonAfricn Am eGFR If Africn Am Glucose, Serum Calcium, Serum GLUCOSE UREA NITROGEN (BUN) CREATININE eGFR NON-AFR. [place] eGFR BUN/CREATININE RATIO SODIUM POTASSIUM CHLORIDE CARBON DIOXIDE CALCIUM PROCEDURES Procedure Date Ordered Result Body Site BASIC METABOLIC PANEL May 31, 2018 INSTRUCTIONS MEDICATIONS ADMINISTERED No Known Medications MEDICAL (GENERAL) HISTORY Type Description Date Medical History Blind in Right eye Medical History Atrial fibrillation Medical History Hypertension Medical History Thyroid disorder Medical History Osteoarthritis Medical History chronic neck/back pain Medical History COPD Medical History Congestive Heart Failure Medical History Hypothyroidism Medical History Other nonspecific abnormal finding of lung field (resolved ) Surgical History cholecystectomy Surgical History ulcer surgery
--- OUTSIDE RECORDS SUMMARY | 2018-06-29 08:52 | XMS REPORT ---
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 Name Role Phone OBINNA PRASAD Unavailable PROBLEMS Type Condition ICD9-CM Code [id number] Code Onset Dates Condition Status SNOMED Code Problem Rectal bleeding K62.5 Active 65277158 Problem Allergic rhinitis, unspecified allergic rhinitis trigger, unspecified rhinitis seasonality J30.9 Active 56400333 Problem Osteoporosis M81.0 Active 80261781 Problem Paroxysmal atrial fibrillation I48.0 Active 690436047 Problem Anxiety F41.9 Active 08535735 Problem Chronic sore throat J31.2 Active 120192119 Problem 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 Active 27196223 Problem Drug induced constipation K59.03 Active 870896980013364 Problem Primary insomnia F51.01 Active 1836823 Problem Chronic pain syndrome G89.4 Active 854721840 Problem T12 compression fracture S22.080A Active 171291658 Problem Other nonspecific abnormal finding of lung field R91.8 Resolved 450645403 Problem Irritable bowel syndrome without diarrhea K58.9 Active 61473258 Problem 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 Active 530067085 Problem Tobacco use Z72.0 Active 353783217 Problem Nocturnal hypoxia G47.34 Active 051799462 Problem Essential hypertension I10 Active 13473791 Problem Hypothyroidism, unspecified hypothyroidism type E03.9 Active 64641096 Problem 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 Active 9010767736188455 Problem Chronic obstructive pulmonary disease, unspecified COPD type J44.9 Active 20597922 Problem Other chronic pain G89.29 Active 47617154 ALLERGIES No Information ENCOUNTERS Encounter Location Date Diagnosis [facility] [address] [facility] [id number] [address] 16 Jun, 2018 [facility] [address], [place] [address] 21 May, 2018 Other chronic pain G89.29 [facility] [address], [place] [address] 94[address] 19 May, 2018 Hyperkalemia E87.5 [facility] [address], [place] [address] 8639 18 May, 2018 Hyperkalemia E87.5 [facility] [id number] [place] [address] 08785- 9545 13 May, 2018 [facility] [id number] [place] [address] 54807- 9687 11 May, 2018 Other chronic pain G89.29 [facility] [id number] [place] [address] 42495- 1912 31 Apr, 2018 Hyperkalemia E87.5 [facility] [id number] [place] [address] 36325- 3259 Apr, [facility] [id number] [place] [address] 21183- 0701 Apr, Sore throat J02.9 ; Chronic sore throat J31.2 ; Otalgia, bilateral H92.03 ; Other chronic pain G89.29 ; Paroxysmal atrial fibrillation I48.0 ; Essential hypertension I10 ; Hypothyroidism, unspecified hypothyroidism type E03.9 ; Fatigue, unspecified type R53.83 ; 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 and Acute non-recurrent pansinusitis J01.40 [facility] [address], [place] [address] 7[address] Apr, Chronic pain syndrome G89.4 [facility] [id number] [place] [address] 97521- 6045 Apr, [facility] [id number] [place] [address] 64444- 8497 Mar, [facility] [id number] [place] [address] 01064- 1980 Mar, [facility] [address] [facility] [id number], [place] [address] Mar, Hypothyroidism, unspecified hypothyroidism type E03.9 [facility] [address] [facility] [id number], [place] [address] Mar, [facility] [address], [place] [address]- 9742 Mar, Chronic pain syndrome G89.4 [facility] [address] [id number], [place] [address] 8176 Mar, [facility] [address] [facility] [id number] [place] [address] 23628- 9124 Mar, Chronic pain syndrome G89.4 [facility] [id number], [place] [address] 3357 Mar, [facility] [id number] [place] [address] 08978- 3492 Mar, Chronic pain syndrome G89.4 and Other chronic pain G89.29 [facility] [address], [place] [address] 1636 Feb, Chronic obstructive pulmonary disease, unspecified COPD type J44.9 [facility] [address] [facility] [id number], [place] [address] 5123 Feb, [facility] [address], [place] [address]- 6604 Feb, [facility] [address] [facility] [id number], [place] [address] 9323 Feb, [facility] [address] [facility] [id number], [place] [address]- 0572 Feb, [facility] [address] [facility] [id number], [place] [address] 9458 Feb, [facility] [address], [place] [address]- 4134 Feb, Other chronic pain G89.29 ; Rectal bleeding K62.5 and Chronic pain syndrome G89.4 [place] [id number] [place] [address] 90440- 2138 15 Feb, 2018 [place] [id number] [place] [address] 63092- 5417 14 Feb, 2018 [place] [address] 24[address]- 8201 Feb, Other chronic pain G89.29 ; Essential hypertension I10 ; Osteoporosis M81.0 ; Drug induced constipation K59.03 ; Chronic obstructive pulmonary disease, unspecified COPD type J44.9 ; Hypothyroidism, unspecified hypothyroidism type E03.9 ; 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 ; Right ear pain H92.01 and Sore throat J02.9 [place] [address] [address]- [address] January, [place] [facility] [address] [address]- 3403 January, Low back pain M54.5 ; Other chronic pain G89.29 ; Pain in thoracic spine M54.6 and Neck pain M54.2 [place] [address] 29596- 1416 Dec, Low back pain M54.5 ; Other chronic pain G89.29 ; Pain in thoracic spine M54.6 and Neck pain M54.2 [place] [id number] [place] [address] 77492- 3293 Dec, 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 and Chronic obstructive pulmonary disease, unspecified COPD type J44.9 [place] [address] 94217- 9601 Dec, [place] [address] 97676- 5234 Dec, Hypothyroidism, unspecified hypothyroidism type E03.9 [facility] [facility] [address] [place] [address]- 5097 Oct, Essential hypertension I10 [place] [id number] [place] [address] 61378- 9001 Oct, [facility] [id number] [place] [address] 57845- 6361 Sep, [place] [id number] [place] [address] 07211- 8157 Sep, 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 [place] [id number] [place] [address] 77086- 5572 Aug, Drug induced constipation K59.03 [place] [id number] [place] [address] 60612- 9362 Aug, [place] [id number] [place] [address] 86961- 1239 Jul, Other chronic pain G89.29 [place] [id number] [place] [address] 51580- 0401 Jul, [place] [id number] [place] [address] 48521- 5515 Jul, Well woman exam (no gynecological exam) Z00.00 ; Encounter for immunization Z23 ; Tobacco use Z72.0 and 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 [place] [id number] [place] [address] 02718- 3979 Jul, [place] [id number] [place] [address] 98255- 7726 Jul, Drug induced constipation K59.03 [place] [id number] [place] [address] 71510- 3457 Jun, Chronic obstructive pulmonary disease, unspecified COPD type J44.9 ; Tobacco use Z72.0 ; Hypothyroidism, unspecified hypothyroidism type E03.9 ; Other chronic pain G89.29 ; Drug induced constipation K59.03 and COPD exacerbation J44.1 [facility] [address], [place] [address]- 3433 Jun, [facility] [id number] [place] [address] 56367- 2646 Jun, [facility] [id number] [place] [address] 49433- 9119 Jun, Osteoporosis M81.0 [facility] [id number] [place] [address] 72694- 5740 Jun, [facility] [id number] [place] [address] 07415- 6327 Jun, Other chronic pain G89.29 [facility] [id number] [place] [address] 21302- 7327 Jun, Other chronic pain G89.29 [facility] [id number] [place] [address] 40449- 8026 Jun, Hypothyroidism, unspecified hypothyroidism type E03.9 [facility] [id number] [place] [address] 11454- 1968 Jun, [facility] [id number] [place] [address] 63650- 4590 May, [facility] [id number] [place] [address] 15195- 2093 May, COPD exacerbation J44.1 ; Pain of left lower extremity M79.605 ; Burn T30.0 ; Fatigue, unspecified type R53.83 ; Anemia, unspecified type D64.9 ; Adverse effect of other opioids, initial encounter T40.2X5A and Drug induced constipation K59.03 [facility] [id number] [place] [address] 43946- 0383 May, [facility] [id number] [place] [address] 92047- 6688 May, Burn T30.0 [facility] [id number] [place] [address] 15477- 9363 18 May, 2017 Other chronic pain G89.29 and Burn T30.0 [facility] [id number] [place] [address] 55679- 1845 14 May, 2017 Other chronic pain G89.29 [facility] [address], [place] [address]- 2233 Apr, [facility] [id number] [place] [address] 91716- 3891 Apr, [facility] [id number] [place] [address] 13813- 2630 Apr, [facility] [id number] [place] [address] 05006- 9588 Apr, [facility] [id number] [place] [address] 63931- 4741 Apr, Other chronic pain G89.29 [facility] [address] [place] [address] 29477- 1540 Apr, Fatigue, unspecified type R53.83 ; Hypothyroidism, unspecified hypothyroidism type E03.9 ; Other chronic pain G89.29 ; Essential hypertension I10 ; Persistent atrial fibrillation I48.1 ; Chronic obstructive pulmonary disease, unspecified COPD type J44.9 ; Nocturnal hypoxia G47.34 ; Irritable bowel syndrome without diarrhea K58.9 ; Hyponatremia E87.1 ; Osteoporosis M81.0 and Primary insomnia F51.01 [facility] [address], [place] [address]- 2663 Feb, [facility] [address], [place] [address]- 8993 January, [facility] [id number] [place] [address] 50366- 1549 Oct, Essential hypertension I10 [facility] [address], [place] [address]- 6050 Sep, Shortness of breath R06.02 ; COPD with exacerbation J44.1 and Weakness R53.1 [place] [address] 29616- 6414 Sep, Drug-induced constipation K59.03 and Allergic rhinitis, unspecified allergic rhinitis trigger, unspecified rhinitis seasonality J30.9 [place] [address] 05491- 2367 Sep, [place] [address] 94854- 9768 Sep, [place] [address] 28273- 0817 Sep, [place] [address] 91382- 9378 Jul, [address] 81945- 5759 Jul, Other chronic pain G89.29 ; Hematuria R31.9 ; Screening for breast cancer Z12.39 ; Anxiety F41.9 ; Primary insomnia F51.01 ; Drug-induced constipation K59.03 and Encounter for immunization Z23 [address] 44722- 7875 Jul, 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 64741- 8594 Jun, 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 and Hyponatremia E87.1 [place] [address] 50643- 3165 Jun, 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 and Hyponatremia E87.[address] 21895- 0938 May, Hyponatremia E87.1 [place] [address] 73700- 9440 May, Essential hypertension I10 ; Tobacco use Z72.0 ; Hyponatremia E87.1 ; Allergic rhinitis, unspecified allergic rhinitis trigger, unspecified rhinitis seasonality J30.9 and Osteoporosis M81.0 [place] [id number] [place] [address] 04416- 7376 Mar, [place] [address] 16401- 4967 Mar, [place] [address] 35749- 4797 Mar, Hyponatremia E87.1 [place] [address] 86642- 7083 Feb, Essential hypertension I10 ; Hypothyroidism, unspecified [...] Concern about skin disease without diagnosis Z71.1 [place] [address] 29570- 8993 Feb, [place] [address] 82850- 1331 Feb, Other nonspecific abnormal finding of lung field R91.8 [place] [id number] [place] [address] 84305- 2870 Dec, [place] [address] 03550- 2669 Dec, [place] [address] 73293- 8466 Nov, [place] [address] 36248- 9320 Nov, [place] [address] [place] [address]- 6563 16 Oct, 2015 [facility] [id number] [place] [address] 57695- 6937 Oct, [facility] [id number] [place] [address] 52580- 7233 09 Oct, 2015 [facility] [address] 21438- 5326 Aug, Chronic obstructive pulmonary disease, unspecified COPD type J44.9 [facility] [address] 43597- 3526 Aug, [facility] [address] 24038- 4555 10 Aug, 2015 Rectal bleeding K62.5 and GERD (gastroesophageal reflux disease) K21.9 [facility] [address] 11394- 0729 Jul, [facility] [address] 31607- 6525 Jul, 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 [facility] [address] 22916- 2271 Jun, [facility] [id number] [place] [address] 99148- 7931 Jun, [facility] [id number] [place] [address] 05235- 2493 May, Adrenal mass 255.9 and Abnormal dexamethasone suppression test 794.6 [facility] [id number] [place] [address] 44410- 0480 May, Adrenal mass 255.9 [facility] [id number] [place] [address] 30575- 7610 May, [facility] [id number] [place] [address] 98405- 8057 May, Pneumonia 486 and COPD (chronic obstructive pulmonary disease) 496 [facility] [address], [place] [address]- 8937 17 May, 2015 [facility] [address], [place] [address]- 2456 14 May, 2015 [facility] [address], [place] [address]- 3411 11 May, 2015 [facility] [id number] [place] [address] 61610- 8897 10 May, 2015 [facility] [address] [place] [address] 81738- 8885 09 May, 2015 [facility] [id number] [place] [address] 89404- 9892 08 May, 2015 [facility] [id number] [place] [address] 55574- 7895 May, Adrenal mass 255.9 [facility] [address], [place] [address]- 9814 Apr, Adrenal mass 255.9 ; Hypothyroidism 244.9 ; Chronic sore throat 472.1 ; Atrial fibrillation 427.31 ; Hypertension 401.9 ; Generalized anxiety disorder 300.02 ; Chronic pain 338.29 and COPD (chronic obstructive pulmonary disease) 496 [facility] [address], [place] [address]- 3731 Apr, [facility] [address], [place] [address]- 8899 Apr, [facility] [address], [place] [address]- 3954 Mar, [facility] [id number] [place] [address] 55757- 1023 Mar, Adrenal mass 255.9 [facility] [address], [place] [address]- 1513 Mar, [facility] [id number] [place] [address] 58824- 2121 Mar, Chronic sore throat 472.1 and Adrenal mass 255.9 [facility] [address], [place] [address]- 0809 Mar, [facility] [address], [place] [address]- 1542 Feb, [facility] [id number] [place] [address] 62202- 1620 Feb, [facility] [address] [place] [address] 11435- 7400 Feb, [facility] [id number] [place] [address] 10121- 5833 Feb, [facility] [id number] [place] [address] 37680- 9309 Feb, [facility] [id number] [place] [address] 99941- 7307 Feb, [facility] [address], [place] [address]- 7127 Feb, [facility] [address] [place] [address] 09078- 6646 Feb, [facility] [address], [place] [address]- 0997 Feb, [facility] [address], [place] [address]- 7354 January, Adrenal mass 255.9 ; Hypothyroidism 244.9 ; Chronic sore throat 472.1 ; Atrial fibrillation 427.31 ; Hypertension 401.9 ; Generalized anxiety disorder 300.02 ; Chronic pain 338.29 and COPD (chronic obstructive pulmonary disease) 496 [facility] [address], [place] [address]- 1946 January, [facility] [address], [place] [address]- 7483 January, [facility] [address] [id number] [place] [address]- 0087 January, Sinusitis 473.9 [facility] [place] [facility] [address] [id number] [place] [address]- 4951 January, [facility] [place] [facility] [address] [id number] [place] [address]- 9354 January, [facility] [place] [facility] [address] [id number] [place] [address]- 3950 Dec, [facility] [place] [facility] [address] [id number] [place] [address]- 6814 Dec, [facility] [place] [facility] [address] [id number] [place] [address]- 6792 Nov, [facility] [place] [facility] [address] [id number] [place] [address]- 7365 Nov, [facility] [place] [facility] [address] [id number] [place] [address]- 2529 Nov, [facility] [place] [facility] [address] [id number] [place] [address]- 9976 Nov, [facility] [place] [facility] [address] [facility] [id number] [place] [address]- 4645 Oct, [facility] [place] [facility] [address] [id number] [place] [address]- 9502 Oct, [facility] [place] [facility] [address] [id number] [place] [address]- 9154 Oct, [facility] [place] [facility] [address] [id number] [place] [address]- 7124 Oct, [facility] [place] [facility] [address] [id number] [place] [address]- 1807 Oct, [facility] [place] [facility] [address] [id number] [place] [address]- 8981 Oct, [facility] [place] [facility] [id number], [place] [address]- 2576 Oct, 2014 [facility] [address] [facility] [id number], [place] [address] Oct, 2014 [facility] [address] [facility] [id number], [place] [address] Oct, 2014 [facility] [id number], [place] [address] Oct, 2014 [facility] [address] [facility] [id number] [place] [address] Oct, 2014 [facility] [id number] [place] [address] Oct, 2014 [facility] [address] [id number], [place] [address] Oct, 2014 [facility] [id number], [place] [address] Oct, [facility] [id number], [place] [address] Oct, [facility] [id number], [place] [address] Oct, [facility] [id number], [place] [address] Oct, [facility] [id number], [place] [address] Oct, [facility] [address] [id number], [place] [address] Sep, [facility] [id number], [place] [address] Sep, [facility] [address] [id number] [address] May, IMMUNIZATIONS No Known Immunizations SOCIAL HISTORY Never Assessed REASON FOR VISIT Lab (walk-in) PLAN OF CARE VITAL SIGNS MEDICATIONS Unknown Medications RESULTS No Results PROCEDURES Procedure Date Ordered Result Body Site BASIC METABOLIC PANEL May 30, 2018 VENIPUNCT, ROUTINE* May 30, 2018 INSTRUCTIONS MEDICATIONS ADMINISTERED No Known Medications [...]
--- OUTSIDE RECORDS SUMMARY | 2018-06-29 08:52 | XMS REPORT ---
Author Author SHANICE OBINNA [facility] Address [address] [place] [address] Care Team Providers Care Department Clerk Name Role Phone OBINNA PRASAD Unavailable PROBLEMS Type Condition ICD9-CM Code OCW79-QG Code Onset Dates Condition Status SNOMED Code Problem Rectal bleeding K62.5 Active 21141619 Problem Allergic rhinitis, unspecified allergic rhinitis trigger, unspecified rhinitis seasonality J30.9 Active 20043699 Problem Osteoporosis M81.0 Active 86386309 Problem Paroxysmal atrial fibrillation I48.0 Active 482974241 Problem Anxiety F41.9 Active 20558411 Problem Chronic sore throat J31.2 Active 115412417 Problem 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 Active 25843451 Problem Drug induced constipation K59.03 Active 049244107096940 Problem Primary insomnia F51.01 Active 4510538 Problem Chronic pain syndrome G89.4 Active 391053481 Problem T12 compression fracture S22.080A Active 477428624 Problem Other nonspecific abnormal finding of lung field R91.8 Resolved 375318898 Problem Irritable bowel syndrome without diarrhea K58.9 Active 30414711 Problem 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 Active 092222638 Problem Tobacco use Z72.0 Active 429938477 Problem Nocturnal hypoxia G47.34 Active 777805770 Problem Essential hypertension I10 Active 85890880 Problem Hypothyroidism, unspecified hypothyroidism type E03.9 Active 99272034 Problem 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 Active 1735710620569107 Problem Chronic obstructive pulmonary disease, unspecified COPD type J44.9 Active 31302306 Problem Other chronic pain G89.29 Active 04058743 ALLERGIES No Information ENCOUNTERS Encounter Location Date Diagnosis [facility] [address] [facility] [id number] [address] 16 Jun, 2018 [facility] [address], [place] [address] 21 May, 2018 Other chronic pain G89.29 [facility] [address], [place] [address] 5110 19 May, 2018 Hyperkalemia E87.5 [facility] [address], [place] [address] 7566 18 May, 2018 Hyperkalemia E87.5 [facility] [id number] [place] [address] 88948- 1486 13 May, 2018 [facility] [id number] [place] [address] 50340- 1888 11 May, 2018 Other chronic pain G89.29 [facility] [id number] [place] [address] 73654- 0675 31 Apr, 2018 Hyperkalemia E87.5 [facility] [id number] [place] [address] 82720- 6946 Apr, [facility] [id number] [place] [address] 09284- 4718 Apr, Sore throat J02.9 ; Chronic sore throat J31.2 ; Otalgia, bilateral H92.03 ; Other chronic pain G89.29 ; Paroxysmal atrial fibrillation I48.0 ; Essential hypertension I10 ; Hypothyroidism, unspecified hypothyroidism type E03.9 ; Fatigue, unspecified type R53.83 ; 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 and Acute non-recurrent pansinusitis J01.40 [facility] [address], [place] [address] 5959 Apr, Chronic pain syndrome G89.4 [facility] [id number] [place] [address] 98056- 7448 Apr, [facility] [id number] [place] [address] 77628- 0809 Mar, [facility] [id number] [place] [address] 37510- 3606 Mar, [facility] [address] [facility] [id number] [address] 6912 Mar, Hypothyroidism, unspecified hypothyroidism type E03.9 [facility] [address] [facility] [id number] [address] 9[address] Mar, [facility] [address], [place] [address]- 1103 Mar, Chronic pain syndrome G89.4 [facility] [id number] [address]- 0941 Mar, [facility] [address] [facility] [place] [id number] [place] [address] 40678- 9022 Mar, Chronic pain syndrome G89.4 [facility] [id number], [place] [address]- 2158 Mar, [facility] [id number] [place] [address] 91084- 3255 Mar, Chronic pain syndrome G89.4 and Other chronic pain G89.29 [facility] [address], [place] [address]- 0654 Feb, Chronic obstructive pulmonary disease, unspecified COPD type J44.9 [facility] [address] [facility] [place] [id number] [address]- 7950 Feb, [facility] [address], [place] [address]- 3659 Feb, [facility] [address] [facility] [place] [id number], [place] [address]- 4258 Feb, [facility] [address] [facility] [place] [id number] [address]- 3182 Feb, [facility] [address] [facility] [place] [id number] [address]- 2478 Feb, [facility] [address], [place] [address]- 9049 Feb, Other chronic pain G89.29 ; Rectal bleeding K62.5 and Chronic pain syndrome G89.4 [facility] [id number] [place] [address] 56069- 6091 15 Feb, 2018 [facility] [id number] [place] [address] 24504- 1362 14 Feb, 2018 [facility] [address] 91475- 9718 Feb, Other chronic pain G89.29 ; Essential hypertension I10 ; Osteoporosis M81.0 ; Drug induced constipation K59.03 ; Chronic obstructive pulmonary disease, unspecified COPD type J44.9 ; Hypothyroidism, unspecified hypothyroidism type E03.9 ; 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 ; Right ear pain H92.01 and Sore throat J02.9 [facility] [address] 42114- 1110 January, [facility] [address] 58242- 8670 January, Low back pain M54.5 ; Other chronic pain G89.29 ; Pain in thoracic spine M54.6 and Neck pain M54.2 [facility] [address] 97618- 6760 Dec, Low back pain M54.5 ; Other chronic pain G89.29 ; Pain in thoracic spine M54.6 and Neck pain M54.2 [facility] [id number] [place] [address] 07552- 6027 Dec, 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 and Chronic obstructive pulmonary disease, unspecified COPD type J44.9 [facility] [address] 59830- 8942 Dec, [facility] [address] 77058- 2319 Dec, Hypothyroidism, unspecified hypothyroidism type E03.9 [facility] [address] [place] [address]- 2108 Oct, Essential hypertension I10 [facility] [id number] [place] [address] 07578- 2389 Oct, [facility] [id number] [place] [address] 29325- 3106 Sep, [facility] [id number] [place] [address] 00723- 7696 Sep, 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 [facility] [id number] [place] [address] 09347- 7416 Aug, Drug induced constipation K59.03 [facility] [id number] [place] [address] 05982- 1071 Aug, [facility] [id number] [place] [address] 86300- 2165 Jul, Other chronic pain G89.29 [facility] [id number] [place] [address] 40191- 8929 Jul, [facility] [id number] [place] [address] 10910- 1082 Jul, Well woman exam (no gynecological exam) Z00.00 ; Encounter for immunization Z23 ; Tobacco use Z72.0 and 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 [facility] [id number] [place] [address] 85012- 4437 Jul, [facility] [id number] [place] [address] 64566- 3168 Jul, Drug induced constipation K59.03 [facility] [id number] [place] [address] 83992- 8535 Jun, Chronic obstructive pulmonary disease, unspecified COPD type J44.9 ; Tobacco use Z72.0 ; Hypothyroidism, unspecified hypothyroidism type E03.9 ; Other chronic pain G89.29 ; Drug induced constipation K59.03 and COPD exacerbation J44.1 [facility] [address], [place] [address]- 2254 Jun, [facility] [id number] [place] [address] 80431- 6867 Jun, [facility] [id number] [place] [address] 85169- 5200 Jun, Osteoporosis M81.0 [facility] [id number] [place] [address] 44554- 1770 Jun, [facility] [id number] [place] [address] 38515- 3594 Jun, Other chronic pain G89.29 [facility] [id number] [place] [address] 79553- 4918 Jun, Other chronic pain G89.29 [facility] [id number] [place] [address] 55837- 6936 Jun, Hypothyroidism, unspecified hypothyroidism type E03.9 [facility] [id number] [place] [address] 16808- 7096 Jun, [facility] [id number] [place] [address] 08418- 7492 May, [facility] [id number] [place] [address] 59944- 7574 May, COPD exacerbation J44.1 ; Pain of left lower extremity M79.605 ; Burn T30.0 ; Fatigue, unspecified type R53.83 ; Anemia, unspecified type D64.9 ; Adverse effect of other opioids, initial encounter T40.2X5A and Drug induced constipation K59.03 [facility] [id number] [place] [address] 64688- 1876 May, [facility] [id number] [place] [address] 26196- 5838 May, Burn T30.0 [facility] [id number] [place] [address] 17442- 6396 18 May, 2017 Other chronic pain G89.29 and Burn T30.0 [facility] [id number] [place] [address] 18706- 3346 14 May, 2017 Other chronic pain G89.29 [facility] [address], [place] [address]- 0335 Apr, [facility] [id number] [place] [address] 32285- 8577 Apr, [facility] [id number] [place] [address] 21912- 0297 Apr, [facility] [id number] [place] [address] 42900- 8891 Apr, [facility] [id number] [place] [address] 15467- 9805 Apr, Other chronic pain G89.29 [facility] [id number] [place] [address] 19481- 0778 Apr, Fatigue, unspecified type R53.83 ; Hypothyroidism, unspecified hypothyroidism type E03.9 ; Other chronic pain G89.29 ; Essential hypertension I10 ; Persistent atrial fibrillation I48.1 ; Chronic obstructive pulmonary disease, unspecified COPD type J44.9 ; Nocturnal hypoxia G47.34 ; Irritable bowel syndrome without diarrhea K58.9 ; Hyponatremia E87.1 ; Osteoporosis M81.0 and Primary insomnia F51.01 [facility] [address], [place] [address]- 4020 Feb, [facility] [address], [place] [address]- 3630 January, [facility] [id number] [place] [address] 68462- 2343 Oct, Essential hypertension I10 [facility] [address], [place] [address]- 9184 Sep, Shortness of breath R06.02 ; COPD with exacerbation J44.1 and Weakness R53.1 [facility] [address] 49878- 9096 Sep, Drug-induced constipation K59.03 and Allergic rhinitis, unspecified allergic rhinitis trigger, unspecified rhinitis seasonality J30.9 [facility] [address] 38541- 1125 Sep, [facility] [address] 55963- 2772 Sep, [facility] [address] 13095- 1341 Sep, [facility] [address] 03443- 7838 Jul, [address] 47258- 9141 Jul, Other chronic pain G89.29 ; Hematuria R31.9 ; Screening for breast cancer Z12.39 ; Anxiety F41.9 ; Primary insomnia F51.01 ; Drug-induced constipation K59.03 and Encounter for immunization Z23 [address] 99435- 7384 Jul, 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 26903- 4726 Jun, 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 and Hyponatremia E87.1 [facility] [address] 56767- 5181 Jun, 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 and Hyponatremia E87.[address] 45832- 8823 May, Hyponatremia E87.1 [facility] [address] 97006- 9297 May, Essential hypertension I10 ; Tobacco use Z72.0 ; Hyponatremia E87.1 ; Allergic rhinitis, unspecified allergic rhinitis trigger, unspecified rhinitis seasonality J30.9 and Osteoporosis M81.0 [facility] [id number] [place] [address] 99658- 9231 Mar, [facility] [address] 36595- 6423 Mar, [place] [address] 12192- 6564 Mar, Hyponatremia E87.1 [facility] [address] 86968- 7524 Feb, Essential hypertension I10 ; Hypothyroidism, unspecified [...] Concern about skin disease without diagnosis Z71.1 [place] [address] 55606- 6556 Feb, [place] [address] 83596- 7936 Feb, Other nonspecific abnormal finding of lung field R91.8 [facility] [id number] [place] [address] 94290- 4132 Dec, [facility] [address] 93396- 5880 Dec, [facility] [address] 05159- 2666 Nov, [facility] [address] 08853- 7763 Nov, [facility] [address] [place] [address]- 3533 16 Oct, 2015 [facility] [id number] [place] [address] 73951- 3056 Oct, [facility] [id number] [place] [address] 55298- 5650 09 Oct, 2015 [facility] [address] 45931- 2031 Aug, Chronic obstructive pulmonary disease, unspecified COPD type J44.9 [facility] [address] 97907- 0588 Aug, [facility] [address] 31591- 1242 10 Aug, 2015 Rectal bleeding K62.5 and GERD (gastroesophageal reflux disease) K21.9 [facility] [address] 33539- 7801 Jul, [facility] [address] 31368- 7443 Jul, 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 [facility] [address] 09354- 0161 Jun, [facility] [id number] [place] [address] 60402- 5863 Jun, [facility] [id number] [place] [address] 46351- 6248 May, Adrenal mass 255.9 and Abnormal dexamethasone suppression test 794.6 [facility] [id number] [place] [address] 34459- 2130 May, Adrenal mass 255.9 [facility] [id number] [place] [address] 66221- 1342 May, [facility] [id number] [place] [address] 60234- 7741 May, Pneumonia 486 and COPD (chronic obstructive pulmonary disease) 496 [facility] [address], [place] [address]- 2562 17 May, 2015 [facility] [address], [place] [address]- 3251 14 May, 2015 [facility] [address], [place] [address]- 8332 11 May, 2015 [facility] [id number] [place] [address] 10562- 8239 10 May, 2015 [facility] [id number] [place] [address] 49159- 1126 09 May, 2015 [facility] [id number] [place] [address] 15905- 2231 08 May, 2015 [facility] [id number] [place] [address] 87945- 4625 May, Adrenal mass 255.9 [facility] [address], [place] [address]- 8053 Apr, Adrenal mass 255.9 ; Hypothyroidism 244.9 ; Chronic sore throat 472.1 ; Atrial fibrillation 427.31 ; Hypertension 401.9 ; Generalized anxiety disorder 300.02 ; Chronic pain 338.29 and COPD (chronic obstructive pulmonary disease) 496 [facility] [address], [place] [address]- 5321 Apr, [facility] [address], [place] [address]- 8006 Apr, [facility] [address], [place] [address]- 2347 Mar, [facility] [id number] [place] [address] 60810- 1806 Mar, Adrenal mass 255.9 [facility] [address], [place] [address]- 6438 Mar, [facility] [id number] [place] [address] 20429- 7415 Mar, Chronic sore throat 472.1 and Adrenal mass 255.9 [facility] [address], [place] [address]- 9153 Mar, [facility] [address], [place] [address]- 7252 Feb, [facility] [id number] [place] [address] 86321- 8869 Feb, [facility] [id number] [place] [address] 21768- 7128 Feb, [facility] [id number] [place] [address] 38616- 3436 Feb, [facility] [id number] [place] [address] 31443- 1983 Feb, [facility] [id number] [place] [address] 26140- 3052 Feb, [facility] [address], [place] [address]- 0918 Feb, [facility] [id number] [place] [address] 79095- 9635 Feb, [facility] [address], [place] [address]- 1269 Feb, [facility] [address], [place] [address]- 1068 January, Adrenal mass 255.9 ; Hypothyroidism 244.9 ; Chronic sore throat 472.1 ; Atrial fibrillation 427.31 ; Hypertension 401.9 ; Generalized anxiety disorder 300.02 ; Chronic pain 338.29 and COPD (chronic obstructive pulmonary disease) 496 [facility] [address], [place] [address]- 2430 January, [facility] [address], [place] [address]- 2074 January, [facility] [address] [id number] [place] [address]- 6247 January, Sinusitis 473.9 [facility] [place] [facility] [address] [id number] [place] [address]- 3347 January, [facility] [place] [facility] [address] [id number] [place] [address]- 7088 January, [facility] [place] [facility] [address] [id number] [place] [address]- 9764 Dec, [facility] [place] [facility] [address] [id number] [place] [address]- 2782 Dec, [facility] [place] [facility] [address] [id number] [place] [address]- 2408 Nov, [facility] [place] [facility] [address] [id number] [place] [address]- 9081 Nov, [facility] [place] [facility] [address] [id number] [place] [address]- 2288 Nov, [facility] [place] [facility] [address] [id number] [place] [address]- 0457 Nov, [facility] [place] [facility] [address] [facility] [place] [id number] [place] [address]- 5209 Oct, [facility] [place] [facility] [address] [id number] [place] [address]- 1746 Oct, [facility] [place] [facility] [address] [id number] [place] [address]- 6185 Oct, [facility] [place] [facility] [address] [id number] [place] [address]- 6637 Oct, [facility] [place] [facility] [address] [id number] [place] [address]- 9909 Oct, [facility] [place] [facility] [address] [id number] [place] [address]- 7433 Oct, [facility] [place] [facility] [address], [place] [address]- 6176 Oct, 2014 [facility] [address] [facility] [place] [id number] [address]- 1276 Oct, 2014 [facility] [address] [facility] [place] [id number] [address]- 7256 Oct, 2014 [facility] [address], [place] [address]- 7266 Oct, 2014 [facility] [address] [facility] [place] [id number] [address] Oct, 2014 [facility] [id number], [place] [address] Oct, 2014 [facility] [id number], [place] [address] Oct, 2014 [facility] [id number] [address] Oct, 2014 [facility] [id number], [place] [address] Oct, [facility] [id number], [place] [address] Oct, [facility] [id number], [place] [address] Oct, [facility] [id number], [place] [address] Oct, [facility] [id number], [place] [address] Sep, [facility] [id number], [place] [address] Sep, [facility] [id number] [address] May, IMMUNIZATIONS No Known Immunizations SOCIAL HISTORY Never Assessed REASON FOR VISIT Controlled Medication Refill PLAN OF CARE VITAL SIGNS MEDICATIONS Medication Instructions Dosage Frequency Start Date End Date Duration Status Embeda 20-0.8 MG Orally Once a day 1 capsule 24h 11 May, 2018 Jun, 28 days Active RESULTS No Results PROCEDURES No Known procedures INSTRUCTIONS MEDICATIONS ADMINISTERED No Known Medications MEDICAL [...]
--- OUTSIDE RECORDS SUMMARY | 2018-06-29 08:53 | XMS REPORT ---
Author Author SHANICE OBINNA [facility] Address [address] [place] [address] Care Team Providers Care Assembler [employer] Name Role Phone OBINNA PRASAD Unavailable PROBLEMS Type Condition ICD9-CM Code PAH63-KM Code Onset Dates Condition Status SNOMED Code Problem Rectal bleeding K62.5 Active 78732178 Problem Allergic rhinitis, unspecified allergic rhinitis trigger, unspecified rhinitis seasonality J30.9 Active 68847833 Problem Osteoporosis M81.0 Active 75860100 Problem Paroxysmal atrial fibrillation I48.0 Active 231913797 Problem Anxiety F41.9 Active 02325118 Problem Chronic sore throat J31.2 Active 690793734 Problem 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 Active 33732734 Problem Drug induced constipation K59.03 Active 357296980776040 Problem Primary insomnia F51.01 Active 3295430 Problem Chronic pain syndrome G89.4 Active 676473221 Problem T12 compression fracture S22.080A Active 122944053 Problem Other nonspecific abnormal finding of lung field R91.8 Resolved 997686323 Problem Irritable bowel syndrome without diarrhea K58.9 Active 90951222 Problem 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 Active 259870437 Problem Tobacco use Z72.0 Active 218224005 Problem Nocturnal hypoxia G47.34 Active 214576539 Problem Essential hypertension I10 Active 24675756 Problem Hypothyroidism, unspecified hypothyroidism type E03.9 Active 17372770 Problem 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 Active 8284589088574401 Problem Chronic obstructive pulmonary disease, unspecified COPD type J44.9 Active 32546268 Problem Other chronic pain G89.29 Active 35238457 ALLERGIES No Information ENCOUNTERS Encounter Location Date Diagnosis [facility] [address] [facility] [id number] [address] 16 Jun, 2018 [facility] [address] [address] 87[address] 21 May, 2018 Other chronic pain G89.29 [facility] [address] [address] 7671 19 May, 2018 Hyperkalemia E87.5 [facility] [address] [address] 3712 18 May, 2018 Hyperkalemia E87.5 [facility] [id number] [place] [address] 79325- 3817 13 May, 2018 [facility] [id number] [place] [address] 36537- 7764 11 May, 2018 Other chronic pain G89.29 [facility] [id number] [place] [address] 80332- 5953 31 Apr, 2018 Hyperkalemia E87.5 [facility] [id number] [place] [address] 11148- 9932 Apr, [facility] [id number] [place] [address] 42543- 3915 Apr, Sore throat J02.9 ; Chronic sore throat J31.2 ; Otalgia, bilateral H92.03 ; Other chronic pain G89.29 ; Paroxysmal atrial fibrillation I48.0 ; Essential hypertension I10 ; Hypothyroidism, unspecified hypothyroidism type E03.9 ; Fatigue, unspecified type R53.83 ; 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 and Acute non-recurrent pansinusitis J01.40 [facility] [address] [address] 7031 Apr, Chronic pain syndrome G89.4 [facility] [address] [place] [address] 61332- 3055 Apr, [facility] [address] [place] [address] 15491- 6028 Mar, [facility] [address] [place] [address] 63179- 3804 Mar, [facility] [address] [facility] [id number] [place] [address] 6126 Mar, Hypothyroidism, unspecified hypothyroidism type E03.9 [facility] [address] [facility] [id number] [place] [address] 8222 Mar, [facility] [address] [address]- 2028 Mar, Chronic pain syndrome G89.4 [facility] [id number] [address]- 2668 Mar, [facility] [address] [facility] [id number] [place] [address] 55798- 4854 Mar, Chronic pain syndrome G89.4 [facility] [address] [id number] [address]- 6750 Mar, [facility] [id number] [place] [address] 28844- 3464 Mar, Chronic pain syndrome G89.4 and Other chronic pain G89.29 [facility] [address] [address]- 7070 Feb, Chronic obstructive pulmonary disease, unspecified COPD type J44.9 [facility] [address] [facility] [id number] [place] [address]- 1230 Feb, [facility] [address] [address]- 2281 Feb, [facility] [address] [facility] [id number] [place] [address]- 8637 Feb, [facility] [address] [facility] [id number] [place] [address]- 6049 Feb, [facility] [address] [facility] [id number] [place] [address]- 0335 Feb, [facility] [address] [address]- 6713 Feb, Other chronic pain G89.29 ; Rectal bleeding K62.5 and Chronic pain syndrome G89.4 [facility] [id number] [place] [address] 35630- 6313 15 Feb, 2018 [facility] [id number] [place] [address] 89066- 0854 14 Feb, 2018 [place] [address] 79923- 1802 Feb, Other chronic pain G89.29 ; Essential hypertension I10 ; Osteoporosis M81.0 ; Drug induced constipation K59.03 ; Chronic obstructive pulmonary disease, unspecified COPD type J44.9 ; Hypothyroidism, unspecified hypothyroidism type E03.9 ; 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 ; Right ear pain H92.01 and Sore throat J02.9 [place] [address] 16897- 4298 January, [place] [facility] [address] 67944- 2237 January, Low back pain M54.5 ; Other chronic pain G89.29 ; Pain in thoracic spine M54.6 and Neck pain M54.2 [facility] [facility] [address] 79597- 0806 Dec, Low back pain M54.5 ; Other chronic pain G89.29 ; Pain in thoracic spine M54.6 and Neck pain M54.2 [facility] [id number] [place] [address] 49153- 5538 Dec, 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 and Chronic obstructive pulmonary disease, unspecified COPD type J44.9 [facility] [facility] [address] 87702- 5724 Dec, [place] [address] 40220- 2820 Dec, Hypothyroidism, unspecified hypothyroidism type E03.9 [facility] [address] [place] [address]- 0470 Oct, Essential hypertension I10 [facility] [id number] [place] [address] 21677- 9501 Oct, [facility] [id number] [place] [address] 62243- 8174 Sep, [facility] [id number] [place] [address] 28157- 0506 Sep, 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 [facility] [id number] [place] [address] 58452- 0618 Aug, Drug induced constipation K59.03 [facility] [id number] [place] [address] 68074- 9652 Aug, [facility] [id number] [place] [address] 46965- 7114 Jul, Other chronic pain G89.29 [facility] [id number] [place] [address] 37501- 8364 Jul, [facility] [id number] [place] [address] 16889- 5108 Jul, Well woman exam (no gynecological exam) Z00.00 ; Encounter for immunization Z23 ; Tobacco use Z72.0 and 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 [facility] [id number] [place] [address] 49627- 2962 Jul, [facility] [id number] [place] [address] 95271- 7466 Jul, Drug induced constipation K59.03 [facility] [id number] [place] [address] 01734- 6667 Jun, Chronic obstructive pulmonary disease, unspecified COPD type J44.9 ; Tobacco use Z72.0 ; Hypothyroidism, unspecified hypothyroidism type E03.9 ; Other chronic pain G89.29 ; Drug induced constipation K59.03 and COPD exacerbation J44.1 [facility] [address] [address]- 1542 Jun, [facility] [id number] [place] [address] 16881- 8748 Jun, [facility] [id number] [place] [address] 37782- 3736 Jun, Osteoporosis M81.0 [facility] [id number] [place] [address] 99192- 8975 Jun, [facility] [id number] [place] [address] 08250- 2873 Jun, Other chronic pain G89.29 [facility] [id number] [place] [address] 46596- 8255 Jun, Other chronic pain G89.29 [facility] [id number] [place] [address] 05625- 1289 Jun, Hypothyroidism, unspecified hypothyroidism type E03.9 [facility] [id number] [place] [address] 27146- 5197 Jun, [facility] [id number] [place] [address] 07009- 0747 May, [facility] [id number] [place] [address] 13529- 7539 May, COPD exacerbation J44.1 ; Pain of left lower extremity M79.605 ; Burn T30.0 ; Fatigue, unspecified type R53.83 ; Anemia, unspecified type D64.9 ; Adverse effect of other opioids, initial encounter T40.2X5A and Drug induced constipation K59.03 [facility] [id number] [place] [address] 61948- 2029 May, [facility] [id number] [place] [address] 14701- 2568 May, Burn T30.0 [facility] [id number] [place] [address] 89488- 3764 18 May, 2017 Other chronic pain G89.29 and Burn T30.0 [facility] [address] [place] [address] 29224- 8832 14 May, 2017 Other chronic pain G89.29 [facility] [address] [address]- 4963 Apr, [facility] [id number] [place] [address] 99904- 2275 Apr, [facility] [address] [place] [address] 65316- 4013 Apr, [facility] [id number] [place] [address] 23290- 0553 Apr, [facility] [id number] [place] [address] 38134- 7738 Apr, Other chronic pain G89.29 [facility] [address] [place] [address] 31822- 9723 Apr, Fatigue, unspecified type R53.83 ; Hypothyroidism, unspecified hypothyroidism type E03.9 ; Other chronic pain G89.29 ; Essential hypertension I10 ; Persistent atrial fibrillation I48.1 ; Chronic obstructive pulmonary disease, unspecified COPD type J44.9 ; Nocturnal hypoxia G47.34 ; Irritable bowel syndrome without diarrhea K58.9 ; Hyponatremia E87.1 ; Osteoporosis M81.0 and Primary insomnia F51.01 [facility] [address] [address]- 3802 Feb, [facility] [address] [address]- 0327 January, [facility] [id number] [place] [address] 27173- 3862 Oct, Essential hypertension I10 [facility] [address] [address]- 2137 Sep, Shortness of breath R06.02 ; COPD with exacerbation J44.1 and Weakness R53.1 [place] [address] 29557- 7697 Sep, Drug-induced constipation K59.03 and Allergic rhinitis, unspecified allergic rhinitis trigger, unspecified rhinitis seasonality J30.9 [place] [address] 59213- 8280 Sep, [place] [address] 66817- 2845 Sep, [place] [address] 68964- 9405 Sep, [place] [address] 28561- 5138 Jul, [address] 47705- 7612 Jul, Other chronic pain G89.29 ; Hematuria R31.9 ; Screening for breast cancer Z12.39 ; Anxiety F41.9 ; Primary insomnia F51.01 ; Drug-induced constipation K59.03 and Encounter for immunization Z23 [address] 46806- 3485 Jul, 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 96180- 3708 Jun, 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 and Hyponatremia E87.1 [place] [address] 09922- 3501 Jun, 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 and Hyponatremia E87.[address] 56687- 4495 May, Hyponatremia E87.1 [place] [address] 44544- 2160 May, Essential hypertension I10 ; Tobacco use Z72.0 ; Hyponatremia E87.1 ; Allergic rhinitis, unspecified allergic rhinitis trigger, unspecified rhinitis seasonality J30.9 and Osteoporosis M81.0 [place] [id number] [place] [address] 04868- 8111 Mar, [place] [address] 44572- 8334 Mar, [place] [address] 09598- 9219 Mar, Hyponatremia E87.1 [place] [address] 75904- 5811 Feb, Essential hypertension I10 ; Hypothyroidism, unspecified [...] Concern about skin disease without diagnosis Z71.1 [place] [address] 71038- 0346 Feb, [place] [address] 73988- 2773 Feb, Other nonspecific abnormal finding of lung field R91.8 [facility] [id number] [place] [address] 16005- 0121 Dec, [place] [address] 44755- 2229 Dec, [place] [address] 29978- 5101 Nov, [place] [address] 09744- 8443 Nov, [place] [address] [place] [address]- 0641 16 Oct, 2015 [facility] [id number] [place] [address] 05892- 5803 Oct, [facility] [id number] [place] [address] 41086- 3834 09 Oct, 2015 [facility] [address] 25735- 2617 Aug, Chronic obstructive pulmonary disease, unspecified COPD type J44.9 [facility] [address] 59142- 2625 Aug, [facility] [address] 36726- 7311 10 Aug, 2015 Rectal bleeding K62.5 and GERD (gastroesophageal reflux disease) K21.9 [facility] [address] 70605- 9887 Jul, [facility] [address] 32788- 9315 Jul, 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 [facility] [address] 48440- 1263 Jun, [facility] [id number] [place] [address] 20062- 6432 Jun, [facility] [id number] [place] [address] 74089- 4679 May, Adrenal mass 255.9 and Abnormal dexamethasone suppression test 794.6 [facility] [id number] [place] [address] 92258- 9509 May, Adrenal mass 255.9 [facility] [id number] [place] [address] 94874- 4393 May, [facility] [id number] [place] [address] 93473- 7308 May, Pneumonia 486 and COPD (chronic obstructive pulmonary disease) 496 [facility] [address] [address]- 8831 17 May, 2015 [facility] [address] [address]- 0638 14 May, 2015 [facility] [address] [address]- 2612 11 May, 2015 [facility] [id number] [place] [address] 69017- 9602 10 May, 2015 [facility] [address] [place] [address] 15489- 1066 09 May, 2015 [facility] [id number] [place] [address] 56386- 3694 08 May, 2015 [facility] [id number] [place] [address] 12808- 5078 May, Adrenal mass 255.9 [facility] [address] [address]- 3968 Apr, Adrenal mass 255.9 ; Hypothyroidism 244.9 ; Chronic sore throat 472.1 ; Atrial fibrillation 427.31 ; Hypertension 401.9 ; Generalized anxiety disorder 300.02 ; Chronic pain 338.29 and COPD (chronic obstructive pulmonary disease) 496 [facility] [address] [address]- 0032 Apr, [facility] [address] [address]- 3522 Apr, [facility] [address] [address]- 7234 Mar, [facility] [id number] [place] [address] 66750- 0937 Mar, Adrenal mass 255.9 [facility] [address] [address]- 5369 Mar, [facility] [id number] [place] [address] 53735- 6863 Mar, Chronic sore throat 472.1 and Adrenal mass 255.9 [facility] [address] [address]- 8665 Mar, [facility] [address] [address]- 4946 Feb, [facility] [id number] [place] [address] 75702- 2822 Feb, [facility] [address] [place] [address] 80820- 5598 Feb, [facility] [id number] [place] [address] 18605- 6236 Feb, [facility] [id number] [place] [address] 20418- 9379 Feb, [facility] [id number] [place] [address] 47613- 2291 Feb, [facility] [address] [address]- 1337 Feb, [facility] [address] [place] [address] 42006- 1457 Feb, [facility] [address] [address]- 6486 Feb, [facility] [address] [address]- 3645 January, Adrenal mass 255.9 ; Hypothyroidism 244.9 ; Chronic sore throat 472.1 ; Atrial fibrillation 427.31 ; Hypertension 401.9 ; Generalized anxiety disorder 300.02 ; Chronic pain 338.29 and COPD (chronic obstructive pulmonary disease) 496 [facility] [address] [address]- 3690 January, [facility] [address] [address]- 4407 January, [facility] [address] [id number] [place] [address]- 8224 January, Sinusitis 473.9 [facility] [place] [facility] [address] [id number] [place] [address]- 0278 January, [facility] [place] [facility] [address] [id number] [place] [address]- 5087 January, [facility] [place] [facility] [address] [id number] [place] [address]- 8615 Dec, [facility] [place] [facility] [address] [id number] [place] [address]- 5743 Dec, [facility] [place] [facility] [address] [id number] [place] [address]- 9088 Nov, [facility] [place] [facility] [address] [id number] [place] [address]- 0119 Nov, [facility] [place] [facility] [address] [id number] [place] [address]- 1654 Nov, [facility] [place] [facility] [address] [id number] [place] [address]- 5837 Nov, [facility] [place] [facility] [address] [facility] [id number] [place] [address]- 6145 Oct, [facility] [place] [facility] [address] [id number] [place] [address]- 7257 Oct, [facility] [place] [facility] [address] [id number] [place] [address]- 4087 Oct, [facility] [place] [facility] [address] [id number] [place] [address]- 1607 Oct, [facility] [place] [facility] [address] [id number] [place] [address]- 9359 Oct, [facility] [place] [facility] [address] [id number] [place] [address]- 3378 Oct, [facility] [place] [facility] [address] [facility] [id number] [place] [address]- 0656 Oct, 2014 [facility] [address] [facility] [id number] [place] [address]- 2956 Oct, 2014 [facility] [address] [facility] [id number] [place] [address]- 2606 Oct, 2014 [facility] [address] [address]- 6496 Oct, 2014 [facility] [address] [facility] [id number] [place] [address]- 0394 Oct, 2014 [facility] [address] [facility] [id number] [place] [address]- 7866 Oct, 2014 [facility] [address] [facility] [id number] [place] [address]- 3732 Oct, [facility] [address] [address]- 4999 Oct, [facility] [address] [address]- 4785 Oct, [facility] [address] [address]- 1608 Oct, [facility] [address] [address]- 5622 Oct, [facility] [address] [address]- 9186 Oct, [facility] [address] [facility] [id number] [place] [address]- 7050 Sep, [facility] [address] [address]- 2571 Sep, [facility] [id number] [address]- 2190 May, IMMUNIZATIONS No Known Immunizations SOCIAL HISTORY Never Assessed REASON FOR VISIT Lab results/hyperkalemia PLAN OF CARE VITAL SIGNS MEDICATIONS Unknown Medications RESULTS Name Result Date Reference Range [facility] 2018-05-18 Request Problem Specimen Identification Status Please note Request Problem Sodium, Serum 134 Potassium, Serum 4.9 Chloride, Serum 94 Carbon Dioxide, Total 34 Kailey Mishra BMP8 Default BUN 16 Creatinine, Serum 0.9 BUN/Creatinine Ratio eGFR If NonAfricn Am eGFR If Africn Am Glucose, Serum 102 Calcium, Serum 9.5 GLUCOSE UREA NITROGEN (BUN) CREATININE eGFR NON-AFR. [place] eGFR BUN/CREATININE RATIO SODIUM POTASSIUM CHLORIDE CARBON DIOXIDE CALCIUM PROCEDURES Procedure Date Ordered Result Body Site BASIC METABOLIC PANEL May 12, 2018 INSTRUCTIONS MEDICATIONS ADMINISTERED No Known Medications [...]
--- OUTSIDE RECORDS SUMMARY | 2018-06-29 08:54 | XMS REPORT ---
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 Name Role Phone OBINNA PRASAD Unavailable PROBLEMS Type Condition ICD9-CM Code PGJ06-FS Code Onset Dates Condition Status SNOMED Code Problem Rectal bleeding K62.5 Active 16950501 Problem Allergic rhinitis, unspecified allergic rhinitis trigger, unspecified rhinitis seasonality J30.9 Active 10676593 Problem Osteoporosis M81.0 Active 90957340 Problem Paroxysmal atrial fibrillation I48.0 Active 654885618 Problem Anxiety F41.9 Active 50804509 Problem Chronic sore throat J31.2 Active 337903989 Problem 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 Active 22925705 Problem Drug induced constipation K59.03 Active 609323487786355 Problem Primary insomnia F51.01 Active 2535327 Problem Chronic pain syndrome G89.4 Active 188460551 Problem T12 compression fracture S22.080A Active 965814135 Problem Other nonspecific abnormal finding of lung field R91.8 Resolved 739094571 Problem Irritable bowel syndrome without diarrhea K58.9 Active 72835851 Problem 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 Active 201405726 Problem Tobacco use Z72.0 Active 787509696 Problem Nocturnal hypoxia G47.34 Active 438358431 Problem Essential hypertension I10 Active 79065415 Problem Hypothyroidism, unspecified hypothyroidism type E03.9 Active 69855732 Problem 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 Active 9130055264958257 Problem Chronic obstructive pulmonary disease, unspecified COPD type J44.9 Active 01201258 Problem Other chronic pain G89.29 Active 09780328 ALLERGIES Substance Reaction Event Type Date Status Hydrocodone Bitartrate nausea Drug Allergy Apr, Active Coumadin Unknown Drug Allergy Apr, Active ENCOUNTERS Encounter Location Date Diagnosis [facility] [address] [facility] [id number] [address] Jun, [facility] [address] [address] 4[address] 21 May, 2018 Other chronic pain G89.29 [facility] [id number] [place] [address] 85733- 7887 19 May, 2018 Hyperkalemia E87.5 [facility] [id number] [place] [address] 94714- 4674 18 May, 2018 Hyperkalemia E87.5 [facility] [id number] [place] [address] 34818- 2974 13 May, 2018 [facility] [id number] [place] [address] 65828- 3132 11 May, 2018 Other chronic pain G89.29 [place] [id number] [place] [address] 50244- 7594 31 Apr, 2018 Hyperkalemia E87.5 [facility] [id number] [place] [address] 75360- 3974 Apr, [facility] [id number] [place] [address] 99914- 2121 Apr, Sore throat J02.9 ; Chronic sore throat J31.2 ; Otalgia, bilateral H92.03 ; Other chronic pain G89.29 ; Paroxysmal atrial fibrillation I48.0 ; Essential hypertension I10 ; Hypothyroidism, unspecified hypothyroidism type E03.9 ; Fatigue, unspecified type R53.83 ; 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 and Acute non-recurrent pansinusitis J01.40 [facility] [id number] [place] [address] 41061- 7221 Apr, Chronic pain syndrome G89.4 [facility] [id number] [place] [address] 19240- 7455 Apr, [facility] [id number] [place] [address] 82835- 0100 Mar, [facility] [address], [place] [address] 8702 Mar, [facility] [id number] [place] [address] 51032- 4518 Mar, Hypothyroidism, unspecified hypothyroidism type E03.9 [facility] [address], [place] [address] 0060 Mar, [facility] [id number] [place] [address] 80798- 8651 Mar, Chronic pain syndrome G89.4 [facility] [id number] [place] [address] 04376- 9006 Mar, [facility] [id number] [place] [address] 64892- 3338 Mar, Chronic pain syndrome G89.4 [facility] [id number] [place] [address] 67920- 7799 Mar, [facility] [address] [place] [address] 70564- 0662 Mar, Chronic pain syndrome G89.4 and Other chronic pain G89.29 [facility] [address], [place] [address] 2465 Feb, Chronic obstructive pulmonary disease, unspecified COPD type J44.9 [facility] [address], [place] [address]- 9735 Feb, [facility] [address], [place] [address]- 9923 Feb, [facility] [address], [place] [address]- 6066 Feb, [facility] [address], [place] [address]- 2862 Feb, [facility] [address], [place] [address]- 3684 Feb, [place] [address] [place] [address] 41727- 1236 18 Feb, 2018 Other chronic pain G89.29 ; Rectal bleeding K62.5 and Chronic pain syndrome G89.4 [place] [id number] [place] [address] 08334- 2660 15 Feb, 2018 [place] [id number] [place] [address] 63935- 3056 14 Feb, 2018 [place] [id number] [place] [address] 44556- 3539 05 Feb, 2018 Other chronic pain G89.29 ; Essential hypertension I10 ; Osteoporosis M81.0 ; Drug induced constipation K59.03 ; Chronic obstructive pulmonary disease, unspecified COPD type J44.9 ; Hypothyroidism, unspecified hypothyroidism type E03.9 ; 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 ; Right ear pain H92.01 and Sore throat J02.9 [place] [id number] [place] [address] 14193- 2732 January, [place] [id number] [place] [address] 04369- 2081 January, Low back pain M54.5 ; Other chronic pain G89.29 ; Pain in thoracic spine M54.6 and Neck pain M54.2 [place] [id number] [place] [address] 24370- 6004 Dec, Low back pain M54.5 ; Other chronic pain G89.29 ; Pain in thoracic spine M54.6 and Neck pain M54.2 [place] [id number] [place] [address] 46749- 9676 Dec, 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 and Chronic obstructive pulmonary disease, unspecified COPD type J44.9 [place] [id number] [place] [address] 92414- 6547 Dec, [place] [id number] [place] [address] 51476- 1878 Dec, Hypothyroidism, unspecified hypothyroidism type E03.9 [place] [id number] [place] [address] 31774- 7425 Oct, Essential hypertension I10 [place] [id number] [place] [address] 17524- 3055 Oct, [place] [address] 22863- 1961 Sep, [place] [address] 08091- 0147 Sep, 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 [place] [address] 91013- 3937 Aug, Drug induced constipation K59.03 [place] [address] 67902- 2986 Aug, [place] [id number] [place] [address] 51411- 0411 Jul, Other chronic pain G89.29 [place] [address] 44258- 0303 09 Jul, 2017 [place] [id number] [place] [address] 81827- 4822 08 Jul, 2017 Well woman exam (no gynecological exam) Z00.00 ; Encounter for immunization Z23 ; Tobacco use Z72.0 and 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 [place] [id number] [place] [address] 02968- 7498 Jul, [place] [id number] [place] [address] 78592- 1820 Jul, Drug induced constipation K59.03 [place] [id number] [place] [address] 08091- 7568 Jun, Chronic obstructive pulmonary disease, unspecified COPD type J44.9 ; Tobacco use Z72.0 ; Hypothyroidism, unspecified hypothyroidism type E03.9 ; Other chronic pain G89.29 ; Drug induced constipation K59.03 and COPD exacerbation J44.1 [facility] [id number] [place] [address] 59809- 3049 Jun, [facility] [id number] [place] [address] 85468- 1938 Jun, [facility] [id number] [place] [address] 14874- 7170 Jun, Osteoporosis M81.0 [facility] [id number] [place] [address] 61237- 9497 Jun, [facility] [id number] [place] [address] 85268- 0086 Jun, Other chronic pain G89.29 [facility] [id number] [place] [address] 70216- 0732 Jun, Other chronic pain G89.29 [facility] [id number] [place] [address] 11123- 8635 Jun, Hypothyroidism, unspecified hypothyroidism type E03.9 [facility] [id number] [place] [address] 65185- 6714 Jun, [facility] [id number] [place] [address] 65500- 5074 May, [facility] [id number] [place] [address] 53178- 8890 May, COPD exacerbation J44.1 ; Pain of left lower extremity M79.605 ; Burn T30.0 ; Fatigue, unspecified type R53.83 ; Anemia, unspecified type D64.9 ; Adverse effect of other opioids, initial encounter T40.2X5A and Drug induced constipation K59.03 [facility] [id number] [place] [address] 48678- 6189 May, [facility] [id number] [place] [address] 85353- 3328 May, Burn T30.0 [facility] [address] [address]- 3383 18 May, 2017 Other chronic pain G89.29 and Burn T30.0 [facility] [address], [place] [address]- 2250 14 May, 2017 Other chronic pain G89.29 [facility] [id number] [place] [address] 65726- 4020 Apr, [facility] [id number] [place] [address] 75559- 9392 Apr, [facility] [id number] [place] [address] 78001- 6404 Apr, [facility] [id number] [place] [address] 19436- 1840 Apr, [facility] [id number] [place] [address] 47071- 7838 Apr, Other chronic pain G89.29 [facility] [address], [place] [address]- 2326 15 Apr, 2017 Fatigue, unspecified type R53.83 ; Hypothyroidism, unspecified hypothyroidism type E03.9 ; Other chronic pain G89.29 ; Essential hypertension I10 ; Persistent atrial fibrillation I48.1 ; Chronic obstructive pulmonary disease, unspecified COPD type J44.9 ; Nocturnal hypoxia G47.34 ; Irritable bowel syndrome without diarrhea K58.9 ; Hyponatremia E87.1 ; Osteoporosis M81.0 and Primary insomnia F51.01 [facility] [address], [place] [address]- 8752 Feb, [facility] [id number] [address]- 5359 January, [facility] [address], [place] [address]- 5811 13 Oct, 2016 Essential hypertension I10 [facility] [address] 39786- 7129 Sep, Shortness of breath R06.02 ; COPD with exacerbation J44.1 and Weakness R53.1 [place] [address] 63180- 6129 Sep, Drug-induced constipation K59.03 and Allergic rhinitis, unspecified allergic rhinitis trigger, unspecified rhinitis seasonality J30.9 [place] [address] 91059- 8795 Sep, [place] [address] 98945- 3609 Sep, [address] 65772- 9535 Sep, [place] [address] 38747- 6144 Jul, [address] 46897- 2566 Jul, Other chronic pain G89.29 ; Hematuria R31.9 ; Screening for breast cancer Z12.39 ; Anxiety F41.9 ; Primary insomnia F51.01 ; Drug-induced constipation K59.03 and Encounter for immunization Z23 [address] 50940- 8340 Jul, 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 [place] [address] 98567- 7615 Jun, 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 and Hyponatremia E87.[address] 90995- 9576 Jun, 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 and Hyponatremia E87.1 [place] [address] 70405- 2279 May, Hyponatremia E87.1 [place] [address] 09205- 8909 May, Essential hypertension I10 ; Tobacco use Z72.0 ; Hyponatremia E87.1 ; Allergic rhinitis, unspecified allergic rhinitis trigger, unspecified rhinitis seasonality J30.9 and Osteoporosis M81.0 [place] [address] 77259- 4307 Mar, [place] [address] 50666- 7230 Mar, [place] [address] 91611- 4420 Mar, Hyponatremia E87.[address] 21959- 2623 Feb, Essential hypertension I10 ; Hypothyroidism, unspecified [...] Concern about skin disease without diagnosis Z71.[address] 06716- 7394 Feb, [address] 96171- 6815 Feb, Other nonspecific abnormal finding of lung field R91.[address] 17368- 1568 Dec, [address] 01801- 5443 Dec, [place] [address] 18808- 1012 Nov, [address] 88293- 2447 14 Nov, 2015 [facility] [address] [place] [address] 00463- 9820 16 Oct, 2015 [facility] [id number] [place] [address] 75647- 2869 Oct, [facility] [id number] [place] [address] 26905- 1729 Oct, [facility] [id number] [place] [address] 45457- 2336 Aug, Chronic obstructive pulmonary disease, unspecified COPD type J44.9 [facility] [id number] [place] [address] 71739- 9480 Aug, [facility] [id number] [place] [address] 61171- 1465 Aug, Rectal bleeding K62.5 and GERD (gastroesophageal reflux disease) K21.9 [facility] [id number] [place] [address] 69459- 0888 Jul, [facility] [id number] [place] [address] 03973- 5024 Jul, 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 [facility] [id number] [place] [address] 73550- 6731 Jun, [facility] [id number] [place] [address] 08583- 2775 Jun, [facility] [id number] [place] [address] 68570- 2326 23 May, 2015 Adrenal mass 255.9 and Abnormal dexamethasone suppression test 794.6 [facility] [id number] [place] [address] 67630- 6039 May, Adrenal mass 255.9 [facility] [id number] [place] [address] 85085- 2746 May, [facility] [address] [place] [address]- 7491 18 May, 2015 Pneumonia 486 and COPD (chronic obstructive pulmonary disease) 496 [facility] [id number] [place] [address] 65496- 9714 17 May, 2015 [facility] [address] [address]- 0147 14 May, 2015 [facility] [id number] [place] [address] 65609- 5842 11 May, 2015 [facility] [id number] [place] [address] 79142- 3122 10 May, 2015 [facility] [id number] [place] [address] 11736- 6680 09 May, 2015 [facility] [id number] [place] [address] 14737- 5449 08 May, 2015 [facility] [id number] [place] [address] 59249- 6634 04 May, 2015 Adrenal mass 255.9 [facility] [address] [place] [address] 80374- 6861 Apr, Adrenal mass 255.9 ; Hypothyroidism 244.9 ; Chronic sore throat 472.1 ; Atrial fibrillation 427.31 ; Hypertension 401.9 ; Generalized anxiety disorder 300.02 ; Chronic pain 338.29 and COPD (chronic obstructive pulmonary disease) 496 [facility] [address] [address]- 9798 Apr, [facility] [address], [place] [address]- 1332 Apr, [facility] [id number] [place] [address] 99330- 1656 Mar, [facility] [address], [place] [address]- 7365 Mar, Adrenal mass 255.9 [facility] [id number] [place] [address] 48448- 1446 Mar, [facility] [address], [place] [address]- 8029 Mar, Chronic sore throat 472.1 and Adrenal mass 255.9 [facility] [address], [place] [address]- 4890 Mar, [facility] [address], [place] [address]- 8098 Feb, [facility] [address], [place] [address]- 6688 Feb, [facility] [address], [place] [address]- 2319 Feb, [facility] [address], [place] [address]- 5416 Feb, [facility] [address], [place] [address]- 0291 Feb, [facility] [address], [place] [address]- 3519 Feb, [facility] [address], [place] [address]- 6892 Feb, [facility] [address], [place] [address]- 4414 Feb, [facility] [address], [place] [address]- 5757 Feb, [facility] [id number] [address]- 3656 January, Adrenal mass 255.9 ; Hypothyroidism 244.9 ; Chronic sore throat 472.1 ; Atrial fibrillation 427.31 ; Hypertension 401.9 ; Generalized anxiety disorder 300.02 ; Chronic pain 338.29 and COPD (chronic obstructive pulmonary disease) 496 [facility] [address] [place] [address]- 8499 January, [facility] [address] [id number] [place] [address]- 8123 January, [facility] [address] [id number] [place] [address]- 3127 January, Sinusitis 473.9 [facility] [place] [facility] [address] [id number] [place] [address]- 9944 January, [facility] [place] [facility] [address] [id number] [place] [address]- 1519 January, [facility] [address] [id number] [place] [address]- 6023 Dec, [facility] [place] [facility] [address] [id number] [place] [address]- 0102 Dec, [facility] [address] [facility] [id number] [place] [address]- 1032 Nov, [facility] [address] [id number] [place] [address] Nov, [facility] [place] [facility] [address] [id number] [place] [address] Nov, [facility] [place] [facility] [address] [id number] [place] [address] Nov, [facility] [place] [facility] [address] [id number] [place] [address] Oct, [facility] [place] [facility] [address] [id number] [address] Oct, [facility] [place] [facility] [address] [id number] [place] [address] Oct, [facility] [place] [facility] [address] [id number] [place] [address] Oct, [facility] [place] [facility] [address] [facility] [id number] [place] [address] Oct, [facility] [place] [facility] [address] [facility] [id number] [place] [address] Oct, 2014 [facility] [place] [facility] [address] [id number] [place] [address] Oct, 2014 [facility] [place] [facility] [address] [id number] [place] [address] Oct, 2014 [facility] [place] [facility] [address] [facility] [id number] [place] [address] Oct, 2014 [facility] [place] [facility] [address] [id number] [place] [address] Oct, 2014 [facility] [place] [facility] [address] [id number] [place] [address] Oct, 2014 [facility] [place] [facility] [address] [facility] [id number] [place] [address] Oct, 2014 [facility] [place] [facility] [address] [id number] [place] [address] Oct, 2014 [facility] [place] [facility] [address] [facility] [id number] [place] [address] Oct, 2014 [facility] [place] [facility] [address] [id number] [place] [address] Oct, 2014 [facility] [place] [facility] [address] [id number] [place] [address] Oct, 2014 [facility] [place] [facility] [address] [facility] [id number] [place] [address] Oct, 2014 [facility] [place] [facility] [address] [facility] [id number] [place] [address] Oct, [facility] [place] [facility] [address] [facility] [id number] [place] [address] Sep, [facility] [place] [facility] [address] [facility] [id number] [place] [address] Sep, [facility] [place] [facility] [address] [facility] [id number], [place] [address] May, IMMUNIZATIONS No Known Immunizations SOCIAL HISTORY Never Assessed REASON FOR VISIT Pain Management -- jame bowen, having sore throat over a week PLAN OF CARE Activity Details Follow Up 4 Weeks Reason:HTN/pain VITAL SIGNS Height 64 in 2018-05-11 Weight 144.0 lbs 2018-05-11 Temperature 97.7 degrees Fahrenheit 2018-05-11 Heart Rate 82 bpm 2018-05-11 Respiratory Rate 22 2018-05-11 BMI 24.71 kg/m2 2018-05-11 Blood pressure systolic 174 mmHg 2018-05-11 Blood pressure diastolic 90 mmHg 2018-05-11 MEDICATIONS Medication Instructions Dosage Frequency Start Date End Date Duration Status Methocarbamol 750 MG Orally 3 times a day 1 tablet 8h 18 Feb, 2018May Active Augmentin 875-125 MG Orally every 12 hrs 1 tablet 12h 30 Apr, 2018 May, 10 day(s) Active Cardizem CD 360 mg take 1 capsule (360 mg) by oral route once daily Sep, Active Loratadine 10 mg Orally Once a day 1 tablet 24h 30 days Active Fluticasone Propionate 50 MCG/ACT 1 SPRAY IN EACH NOSTRIL ONCE A DAY NASALLY 30 Active Pradaxa 150 mg take 1 capsule (150 mg) by oral route 2 times per day Sep, Active Oxygen Active Duloxetine HCl 60 mg Orally Twice a day 1 capsule 12h Active Incruse Ellipta 62.5 mcg/inh 1 puff Once a day Inhalation Active Ventolin HFA 108 (90 Base) MCG/ACT Inhalation every 4 hrs 2 puffs as needed 4h Active Albuterol Sulfate (2.5 MG/3ML) 0.083% USE 1 VIAL ( 3 ML ) EVERY 4 HOURS NEEDED Active Duloxetine HCl 60 mg Orally Twice a day 1 capsule 12h 30 Active Omeprazole 20 mg Orally Once a day 1 capsule 24h May, 30 days Active Alendronate Sodium 70 MG Orally by oral route once weekly in the morning, at least 30 min before first food, beverage, or medication of day 1 tablet Feb, Active Embeda 20-0.8 MG Orally Once a day 1 capsule 24h 14 Apr, 2018 Active Furosemide 20 mg TAKE 1 TABLET BY MOUTH EVERY DAY NEEDED 30 Active Lidoderm 5 % Externally Once a day 1 patch to skin remove after 12 hours 24h Feb, Aug, 30 days Active Metoprolol Succinate 200 mg take 1 tablet (200 mg) by oral route once daily Sep, Active Albuterol Sulfate (2.5 MG/3ML) 0.083% USE 1 VIAL ( 3 ML ) EVERY 4 HOURS NEEDED Active Mirtazapine 30 MG TAKE 1 TABLET BY MOUTH AT BEDTIME ONCE A DAY 90 Active Levothyroxine Sodium 75 mcg 1 TABLET ONCE A DAY ORALLY 30 DAYS Active Lisinopril 20 MG Orally Once a day 1 tablet 24h Active Symbicort 160-4.5 mcg/act inhale 2 puffs by inhalation route 2 times per day in the morning and evening Active RESULTS No Results PROCEDURES Procedure Date Ordered Result Body Site STREP A ASSAY W/OPTIC May 11, 2018 COMPLETE CBC W/AUTO DIFF WBC May 11, 2018 ASSAY OF VITAMIN D May 11, 2018 VENIPUNCT, ROUTINE* May 11, 2018 ASSAY THYROID STIM HORMONE May 11, 2018 COMPREHEN METABOLIC PANEL May 11, 2018 BLOOD FOLIC ACID SERUM May 11, 2018 VITAMIN B-12 May 11, 2018 INSTRUCTIONS MEDICATIONS ADMINISTERED No Known Medications [...]
--- OUTSIDE RECORDS SUMMARY | 2018-06-29 08:54 | XMS REPORT ---
Author Author SHANICE OBINNA [facility] Address [address] [place] [address] Care Team Providers Care [employer] Attendant Name Role Phone OBINNA PRASAD Unavailable PROBLEMS Type Condition ICD9-CM Code ABC69-HU Code Onset Dates Condition Status SNOMED Code Problem Rectal bleeding K62.5 Active 04360309 Problem Allergic rhinitis, unspecified allergic rhinitis trigger, unspecified rhinitis seasonality J30.9 Active 92027923 Problem Osteoporosis M81.0 Active 60215699 Problem Paroxysmal atrial fibrillation I48.0 Active 783110527 Problem Anxiety F41.9 Active 32589044 Problem Chronic sore throat J31.2 Active 553892206 Problem 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 Active 00241001 Problem Drug induced constipation K59.03 Active [id number] Problem Primary insomnia F51.01 Active 4554188 Problem Chronic pain syndrome G89.4 Active 443774491 Problem T12 compression fracture S22.080A Active 058918123 Problem Other nonspecific abnormal finding of lung field R91.8 Resolved 932605132 Problem Irritable bowel syndrome without diarrhea K58.9 Active 83857277 Problem 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 Active 897778410 Problem Tobacco use Z72.0 Active 878249578 Problem Nocturnal hypoxia G47.34 Active 603772144 Problem Essential hypertension I10 Active 79266127 Problem Hypothyroidism, unspecified hypothyroidism type E03.9 Active 40902464 Problem 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 Active 8936955257664749 Problem Chronic obstructive pulmonary disease, unspecified COPD type J44.9 Active 18598698 Problem Other chronic pain G89.29 Active 41214813 ALLERGIES No Information ENCOUNTERS Encounter Location Date Diagnosis [facility] [address] [facility] [id number] [address] 16 Jun, 2018 [facility] [address], [place] [address] 0[address] 21 May, 2018 Other chronic pain G89.29 [facility] [address], [place] [address] 2848 19 May, 2018 Hyperkalemia E87.5 [facility] [address], [place] [address] 2528 18 May, 2018 Hyperkalemia E87.5 [facility] [id number] [place] [address] 41228- 8774 13 May, 2018 [facility] [id number] [place] [address] 10404- 9147 11 May, 2018 Other chronic pain G89.29 [facility] [id number] [place] [address] 78684- 5796 31 Apr, 2018 Hyperkalemia E87.5 [facility] [id number] [place] [address] 93471- 6559 Apr, [facility] [id number] [place] [address] 04049- 2298 Apr, Sore throat J02.9 ; Chronic sore throat J31.2 ; Otalgia, bilateral H92.03 ; Other chronic pain G89.29 ; Paroxysmal atrial fibrillation I48.0 ; Essential hypertension I10 ; Hypothyroidism, unspecified hypothyroidism type E03.9 ; Fatigue, unspecified type R53.83 ; 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 and Acute non-recurrent pansinusitis J01.40 [facility] [address], [place] [address] 3801 Apr, Chronic pain syndrome G89.4 [facility] [id number] [place] [address] 36483- 7397 Apr, [facility] [id number] [place] [address] 68817- 2534 Mar, [facility] [id number] [place] [address] 75582- 5197 Mar, [facility] [address] [facility] [id number] [address] Mar, Hypothyroidism, unspecified hypothyroidism type E03.9 [facility] [address] [facility] [id number], [place] [address] 8[address] Mar, [facility] [address], [place] [address] 3053 Mar, Chronic pain syndrome G89.4 [facility] [id number] [address] 5149 Mar, [facility] [address] [facility] [place] [id number] [place] [address] 87189- 9990 Mar, Chronic pain syndrome G89.4 [facility] [id number], [place] [address] 5396 Mar, [facility] [id number] [place] [address] 38836- 5364 Mar, Chronic pain syndrome G89.4 and Other chronic pain G89.29 [facility] [address], [place] [address] 4661 Feb, Chronic obstructive pulmonary disease, unspecified COPD type J44.9 [facility] [address] [facility] [id number], [place] [address] 2213 Feb, [facility] [address], [place] [address]- 5358 Feb, [facility] [address] [facility] [id number], [place] [address]- 9057 Feb, [facility] [address] [facility] [id number], [place] [address]- 2354 Feb, [facility] [address] [facility] [id number], [place] [address]- 2806 Feb, [facility] [address], [place] [address] 3700 Feb, Other chronic pain G89.29 ; Rectal bleeding K62.5 and Chronic pain syndrome G89.4 [place] [facility] [id number] [place] [address] 56644- 7584 15 Feb, 2018 [place] [id number] [place] [address] 59849- 6713 14 Feb, 2018 [place] [address] 30175- 8874 Feb, Other chronic pain G89.29 ; Essential hypertension I10 ; Osteoporosis M81.0 ; Drug induced constipation K59.03 ; Chronic obstructive pulmonary disease, unspecified COPD type J44.9 ; Hypothyroidism, unspecified hypothyroidism type E03.9 ; 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 ; Right ear pain H92.01 and Sore throat J02.9 [place] [address] 47788- 6573 January, [place] [address] 94009- 5884 January, Low back pain M54.5 ; Other chronic pain G89.29 ; Pain in thoracic spine M54.6 and Neck pain M54.2 [place] [address] 92473- 5230 Dec, Low back pain M54.5 ; Other chronic pain G89.29 ; Pain in thoracic spine M54.6 and Neck pain M54.2 [place] [id number] [place] [address] 08937- 6652 Dec, 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 and Chronic obstructive pulmonary disease, unspecified COPD type J44.9 [place] [address] 36701- 6129 Dec, [place] [address] 35425- 8257 Dec, Hypothyroidism, unspecified hypothyroidism type E03.9 [place] [address] [place] [address]- 2313 Oct, Essential hypertension I10 [place] [facility] [id number] [place] [address] 22735- 3711 Oct, [facility] [id number] [place] [address] 35234- 3466 Sep, [place] [id number] [place] [address] 11991- 1133 Sep, 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 [place] [id number] [place] [address] 05020- 5867 Aug, Drug induced constipation K59.03 [place] [facility] [id number] [place] [address] 80092- 4486 Aug, [place] [facility] [id number] [place] [address] 39241- 4718 Jul, Other chronic pain G89.29 [place] [facility] [id number] [place] [address] 17173- 8715 Jul, [place] [facility] [id number] [place] [address] 20234- 7205 Jul, Well woman exam (no gynecological exam) Z00.00 ; Encounter for immunization Z23 ; Tobacco use Z72.0 and 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 [place] [id number] [place] [address] 17350- 3996 Jul, [place] [facility] [id number] [place] [address] 47759- 4073 Jul, Drug induced constipation K59.03 [place] [id number] [place] [address] 00097- 1309 Jun, Chronic obstructive pulmonary disease, unspecified COPD type J44.9 ; Tobacco use Z72.0 ; Hypothyroidism, unspecified hypothyroidism type E03.9 ; Other chronic pain G89.29 ; Drug induced constipation K59.03 and COPD exacerbation J44.1 [facility] [address], [place] [address]- 0746 Jun, [facility] [id number] [place] [address] 19448- 3988 Jun, [facility] [id number] [place] [address] 42132- 3498 Jun, Osteoporosis M81.0 [facility] [id number] [place] [address] 52534- 4486 Jun, [facility] [id number] [place] [address] 63511- 9175 Jun, Other chronic pain G89.29 [facility] [id number] [place] [address] 00125- 4589 Jun, Other chronic pain G89.29 [facility] [id number] [place] [address] 19006- 9346 Jun, Hypothyroidism, unspecified hypothyroidism type E03.9 [facility] [id number] [place] [address] 94822- 5647 Jun, [facility] [id number] [place] [address] 18161- 5498 May, [facility] [id number] [place] [address] 73201- 4117 May, COPD exacerbation J44.1 ; Pain of left lower extremity M79.605 ; Burn T30.0 ; Fatigue, unspecified type R53.83 ; Anemia, unspecified type D64.9 ; Adverse effect of other opioids, initial encounter T40.2X5A and Drug induced constipation K59.03 [facility] [id number] [place] [address] 24984- 3550 May, [facility] [id number] [place] [address] 76391- 5308 May, Burn T30.0 [facility] [id number] [place] [address] 43271- 4548 18 May, 2017 Other chronic pain G89.29 and Burn T30.0 [facility] [id number] [place] [address] 65633- 9005 14 May, 2017 Other chronic pain G89.29 [facility] [address], [place] [address]- 7842 Apr, [facility] [id number] [place] [address] 70249- 6247 Apr, [facility] [id number] [place] [address] 15697- 6797 Apr, [facility] [id number] [place] [address] 24080- 0657 Apr, [facility] [id number] [place] [address] 15714- 7171 Apr, Other chronic pain G89.29 [facility] [id number] [place] [address] 93720- 9905 Apr, Fatigue, unspecified type R53.83 ; Hypothyroidism, unspecified hypothyroidism type E03.9 ; Other chronic pain G89.29 ; Essential hypertension I10 ; Persistent atrial fibrillation I48.1 ; Chronic obstructive pulmonary disease, unspecified COPD type J44.9 ; Nocturnal hypoxia G47.34 ; Irritable bowel syndrome without diarrhea K58.9 ; Hyponatremia E87.1 ; Osteoporosis M81.0 and Primary insomnia F51.01 [facility] [address], [place] [address]- 6915 Feb, [facility] [address], [place] [address]- 0402 January, [facility] [id number] [place] [address] 10032- 2555 Oct, Essential hypertension I10 [facility] [address], [place] [address]- 9321 Sep, Shortness of breath R06.02 ; COPD with exacerbation J44.1 and Weakness R53.1 [place] [address] 05172- 9324 Sep, Drug-induced constipation K59.03 and Allergic rhinitis, unspecified allergic rhinitis trigger, unspecified rhinitis seasonality J30.9 [place] [address] 03582- 8572 Sep, [place] [address] 70512- 2559 Sep, [place] [address] 12649- 8685 Sep, [place] [address] 20583- 8795 Jul, [address] 21475- 1832 Jul, Other chronic pain G89.29 ; Hematuria R31.9 ; Screening for breast cancer Z12.39 ; Anxiety F41.9 ; Primary insomnia F51.01 ; Drug-induced constipation K59.03 and Encounter for immunization Z23 [address] 12302- 7480 Jul, 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 04446- 6770 Jun, 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 and Hyponatremia E87.1 [place] [address] 73518- 4232 Jun, 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 and Hyponatremia E87.[address] 38896- 3397 May, Hyponatremia E87.1 [place] [address] 52418- 6864 May, Essential hypertension I10 ; Tobacco use Z72.0 ; Hyponatremia E87.1 ; Allergic rhinitis, unspecified allergic rhinitis trigger, unspecified rhinitis seasonality J30.9 and Osteoporosis M81.0 [place] [id number] [place] [address] 04618- 4502 Mar, [place] [address] 66247- 5416 Mar, [place] [address] 79194- 5584 Mar, Hyponatremia E87.1 [place] [address] 90394- 3377 Feb, Essential hypertension I10 ; Hypothyroidism, unspecified [...] Concern about skin disease without diagnosis Z71.1 [place] [address] 52560- 3999 Feb, [place] [address] 80247- 5237 Feb, Other nonspecific abnormal finding of lung field R91.8 [place] [id number] [place] [address] 14827- 6920 Dec, [place] [address] 25006- 3806 Dec, [place] [address] 89538- 1698 Nov, [place] [address] 30265- 2261 Nov, [place] [address] [place] [address]- 1020 16 Oct, 2015 [facility] [id number] [place] [address] 02438- 6258 Oct, [facility] [id number] [place] [address] 02018- 9933 09 Oct, 2015 [facility] [address] 51231- 6034 Aug, Chronic obstructive pulmonary disease, unspecified COPD type J44.9 [facility] [address] 79922- 1743 Aug, [facility] [address] 67717- 8041 10 Aug, 2015 Rectal bleeding K62.5 and GERD (gastroesophageal reflux disease) K21.9 [facility] [address] 04697- 8506 Jul, [facility] [address] 21038- 4375 Jul, 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 [facility] [address] 53772- 5940 Jun, [facility] [id number] [place] [address] 38918- 7658 Jun, [facility] [id number] [place] [address] 89143- 9665 May, Adrenal mass 255.9 and Abnormal dexamethasone suppression test 794.6 [facility] [id number] [place] [address] 52797- 9330 May, Adrenal mass 255.9 [facility] [id number] [place] [address] 06833- 4311 May, [facility] [id number] [place] [address] 10579- 5587 May, Pneumonia 486 and COPD (chronic obstructive pulmonary disease) 496 [facility] [address], [place] [address]- 2558 17 May, 2015 [facility] [address], [place] [address]- 1898 14 May, 2015 [facility] [address], [place] [address]- 6852 11 May, 2015 [facility] [id number] [place] [address] 70063- 2270 10 May, 2015 [facility] [id number] [place] [address] 31041- 8928 09 May, 2015 [facility] [id number] [place] [address] 48001- 8352 08 May, 2015 [facility] [id number] [place] [address] 55531- 4537 May, Adrenal mass 255.9 [facility] [address], [place] [address]- 3199 Apr, Adrenal mass 255.9 ; Hypothyroidism 244.9 ; Chronic sore throat 472.1 ; Atrial fibrillation 427.31 ; Hypertension 401.9 ; Generalized anxiety disorder 300.02 ; Chronic pain 338.29 and COPD (chronic obstructive pulmonary disease) 496 [facility] [address], [place] [address]- 6184 Apr, [facility] [address], [place] [address]- 1239 Apr, [facility] [address], [place] [address]- 4990 Mar, [facility] [id number] [place] [address] 21371- 8512 Mar, Adrenal mass 255.9 [facility] [address], [place] [address]- 6909 Mar, [facility] [id number] [place] [address] 94342- 0216 Mar, Chronic sore throat 472.1 and Adrenal mass 255.9 [facility] [address], [place] [address]- 4767 Mar, [facility] [address], [place] [address]- 6231 Feb, [facility] [id number] [place] [address] 87834- 3338 Feb, [facility] [id number] [place] [address] 46827- 6437 Feb, [facility] [id number] [place] [address] 03452- 5795 Feb, [facility] [id number] [place] [address] 99023- 0764 Feb, [facility] [id number] [place] [address] 62970- 9453 Feb, [facility] [address], [place] [address]- 3210 Feb, [facility] [id number] [place] [address] 14589- 1451 Feb, [facility] [address], [place] [address]- 3166 Feb, [facility] [address], [place] [address]- 2554 January, Adrenal mass 255.9 ; Hypothyroidism 244.9 ; Chronic sore throat 472.1 ; Atrial fibrillation 427.31 ; Hypertension 401.9 ; Generalized anxiety disorder 300.02 ; Chronic pain 338.29 and COPD (chronic obstructive pulmonary disease) 496 [facility] [address], [place] [address]- 1772 January, [facility] [address], [place] [address]- 4820 January, [facility] [address] [id number] [place] [address]- 1578 January, Sinusitis 473.9 [facility] [place] [facility] [address] [id number] [place] [address]- 5410 January, [facility] [place] [facility] [address] [id number] [place] [address]- 0914 January, [facility] [place] [facility] [address] [id number] [place] [address]- 7666 Dec, [facility] [place] [facility] [address] [id number] [place] [address]- 3257 Dec, [facility] [place] [facility] [address] [id number] [place] [address]- 6135 Nov, [facility] [place] [facility] [address] [id number] [place] [address]- 6040 Nov, [facility] [place] [facility] [address] [id number] [place] [address]- 0669 Nov, [facility] [place] [facility] [address] [id number] [place] [address]- 0503 Nov, [facility] [place] [facility] [address] [facility] [place] [id number] [place] [address]- 8612 Oct, [facility] [place] [facility] [address] [id number] [place] [address]- 9609 Oct, [facility] [place] [facility] [address] [id number] [place] [address]- 5819 Oct, [facility] [place] [facility] [address] [id number] [place] [address]- 0780 Oct, [facility] [place] [facility] [address] [id number] [place] [address]- 0629 Oct, [facility] [place] [facility] [address] [id number] [place] [address]- 6689 Oct, [facility] [place] [facility] [address], [place] [address]- 8784 Oct, 2014 [facility] [address], [place] [address]- 1576 Oct, 2014 [facility] [address], [place] [address]- 9486 Oct, 2014 [facility] [address], [place] [address] Oct, 2014 [facility] [id number] [place] [address] Oct, 2014 [facility] [id number] [place] [address] Oct, 2014 [facility] [id number] [place] [address] Oct, 2014 [facility] [id number] [place] [address] Oct, [facility] [id number] [place] [address] Oct, [facility] [id number] [place] [address] Oct, [facility] [id number] [place] [address] Oct, [facility] [id number] [place] [address] Oct, [facility] [id number], [place] [address] Sep, [facility] [id number] [place] [address] Sep, [facility] [id number] [address] May, IMMUNIZATIONS No Known Immunizations SOCIAL HISTORY Never Assessed REASON FOR VISIT Medication Question PLAN OF CARE VITAL SIGNS MEDICATIONS Unknown [...]
[2018-06-29] MEDS ORDERED: LIDOCAINE/EPI 1%-1:200,000 (XYLOCAINE) 10 ML VIAL ONE (08:55)
--- OUTSIDE RECORDS SUMMARY | 2018-06-29 08:55 | XMS REPORT ---
Author Author FABIANA SCHUMACHER Organization [facility] Address [address] 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 Active 05687664 Problem Drug induced constipation K59.03 Active 205734372404261 Problem Primary insomnia F51.01 Active 2772950 Problem Chronic pain syndrome G89.4 Active 092714891 Problem T12 compression fracture S22.080A Active 268026944 Problem Other nonspecific abnormal finding of lung field R91.8 Resolved 726402962 Problem Irritable bowel syndrome without diarrhea K58.9 Active 49618503 Problem 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 Active 926345939 Problem Tobacco use Z72.0 Active 382498404 Problem Nocturnal hypoxia G47.34 Active 338209639 Problem Essential hypertension I10 Active 00403536 Problem Hypothyroidism, unspecified hypothyroidism type E03.9 Active 18590107 Problem 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 Active 0376009776937915 Problem Chronic obstructive pulmonary disease, unspecified COPD type J44.9 Active 43598773 Problem Other chronic pain G89.29 Active 76996394 ALLERGIES No Information ENCOUNTERS Encounter Location Date Diagnosis [facility] [address] [facility] [id number] [address] Jun, [facility] [id number] [address] 8564 13 May, 2018 [facility] [address] [place] [address] 78324- 5766 11 May, 2018 Other chronic pain G89.29 [facility] [id number] [place] [address] 64083- 1313 Apr, Hyperkalemia E87.5 [facility] [id number] [place] [address] 25953- 0777 Apr, [facility] [id number] [place] [address] 95347- 2743 Apr, Sore throat J02.9 ; Chronic sore throat J31.2 ; Otalgia, bilateral H92.03 ; Other chronic pain G89.29 ; Paroxysmal atrial fibrillation I48.0 ; Essential hypertension I10 ; Hypothyroidism, unspecified hypothyroidism type E03.9 ; Fatigue, unspecified type R53.83 ; 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 and Acute non-recurrent pansinusitis J01.40 [facility] [address] [place] [address] 30092- 9085 Apr, Chronic pain syndrome G89.4 [facility] [id number] [place] [address] 69144- 4575 Apr, [facility] [id number] [place] [address] 21892- 3006 Mar, [facility] [id number] [place] [address] 12235- 0851 Mar, [facility] [address] [place] [address] 66296- 1286 Mar, Hypothyroidism, unspecified hypothyroidism type E03.9 [facility] [id number] [place] [address] 68480- 5982 Mar, [facility] [address] [place] [address] 81413- 8177 Mar, Chronic pain syndrome G89.4 [facility] [address] [id number] [address] 6299 Mar, [facility] [address] [facility] [id number], [place] [address] 7479 Mar, Chronic pain syndrome G89.4 [facility] [address] [facility] [id number] [address] 6248 Mar, [facility] [address] [place] [address] 27363- 7232 Mar, Chronic pain syndrome G89.4 and Other chronic pain G89.29 [facility] [address] [facility] [id number] [place] [address] 56789- 4508 Feb, Chronic obstructive pulmonary disease, unspecified COPD type J44.9 [facility] [address] [facility] [id number], [place] [address] 0590 Feb, [facility] [id number] [place] [address] 03261- 1640 Feb, [facility] [address] [place] [address] 75841- 8537 Feb, [facility] [address] [place] [address] 72692- 6350 Feb, [facility] [address], [place] [address] 3415 Feb, [facility] [address], [place] [address] 0467 Feb, Other chronic pain G89.29 ; Rectal bleeding K62.5 and Chronic pain syndrome G89.4 [facility] [address] [facility] [id number], [place] [address] 4849 15 Feb, 2018 [facility] [address] [id number], [place] [address] 5457 14 Feb, 2018 [facility] [address], [place] [address]- 2365 05 Feb, 2018 Other chronic pain G89.29 ; Essential hypertension I10 ; Osteoporosis M81.0 ; Drug induced constipation K59.03 ; Chronic obstructive pulmonary disease, unspecified COPD type J44.9 ; Hypothyroidism, unspecified hypothyroidism type E03.9 ; 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 ; Right ear pain H92.01 and Sore throat J02.9 [place] [id number] [place] [address] 49219- 6217 January, [place] [address] 26673- 8415 January, Low back pain M54.5 ; Other chronic pain G89.29 ; Pain in thoracic spine M54.6 and Neck pain M54.2 [facility] [address] 50537- 7859 Dec, Low back pain M54.5 ; Other chronic pain G89.29 ; Pain in thoracic spine M54.6 and Neck pain M54.2 [facility] [facility] [address] 45065- 4795 Dec, 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 and Chronic obstructive pulmonary disease, unspecified COPD type J44.9 [facility] [id number] [place] [address] 08305- 9704 Dec, [facility] [id number] [place] [address] 58922- 3312 Dec, Hypothyroidism, unspecified hypothyroidism type E03.9 [facility] [id number] [place] [address] 94306- 3776 Oct, Essential hypertension I10 [place] [address] 37053- 1278 Oct, [facility] [facility] [id number] [place] [address] 36115- 1014 Sep, [place] [address] 87062- 9550 Sep, 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 [facility] [id number] [place] [address] 92559- 8247 Aug, Drug induced constipation K59.03 [facility] [id number] [place] [address] 06174- 7222 Aug, [facility] [id number] [place] [address] 82215- 8624 Jul, Other chronic pain G89.29 [facility] [id number] [place] [address] 77213- 6463 Jul, [place] [address] 20256- 6011 Jul, Well woman exam (no gynecological exam) Z00.00 ; Encounter for immunization Z23 ; Tobacco use Z72.0 and 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 [place] [address] 59215- 5783 Jul, [place] [facility] [id number] [place] [address] 06720- 4651 Jul, Drug induced constipation K59.03 [facility] [facility] [id number] [place] [address] 59844- 2594 Jun, Chronic obstructive pulmonary disease, unspecified COPD type J44.9 ; Tobacco use Z72.0 ; Hypothyroidism, unspecified hypothyroidism type E03.9 ; Other chronic pain G89.29 ; Drug induced constipation K59.03 and COPD exacerbation J44.1 [facility] [id number] [place] [address] 44097- 2116 Jun, [place] [id number] [place] [address] 34292- 7982 Jun, [place] [id number] [place] [address] 61742- 3183 Jun, Osteoporosis M81.0 [place] [facility] [address] 95787- 7514 Jun, [facility] [id number] [place] [address] 70234- 6801 Jun, Other chronic pain G89.29 [facility] [id number] [place] [address] 54822- 4030 Jun, Other chronic pain G89.29 [facility] [id number] [place] [address] 67543- 5340 Jun, Hypothyroidism, unspecified hypothyroidism type E03.9 [facility] [id number] [place] [address] 29880- 7830 Jun, [facility] [id number] [place] [address] 60716- 7580 May, [facility] [id number] [place] [address] 66155- 4245 May, COPD exacerbation J44.1 ; Pain of left lower extremity M79.605 ; Burn T30.0 ; Fatigue, unspecified type R53.83 ; Anemia, unspecified type D64.9 ; Adverse effect of other opioids, initial encounter T40.2X5A and Drug induced constipation K59.03 [facility] [id number] [place] [address] 79818- 8545 May, [facility] [id number] [place] [address] 79832- 4583 May, Burn T30.0 [facility] [id number] [place] [address] 21387- 0816 18 May, 2017 Other chronic pain G89.29 and Burn T30.0 [facility] [id number] [place] [address] 61692- 7921 14 May, 2017 Other chronic pain G89.29 [facility] [id number] [place] [address] 35221- 6366 Apr, [facility] [address] 10931- 2014 Apr, [place] [id number] [place] [address] 00257- 1296 Apr, [place] [address] 21052- 7725 Apr, [place] [address] 86267- 6319 Apr, Other chronic pain G89.29 [place] [address] 17141- 4939 15 Apr, 2017 Fatigue, unspecified type R53.83 ; Hypothyroidism, unspecified hypothyroidism type E03.9 ; Other chronic pain G89.29 ; Essential hypertension I10 ; Persistent atrial fibrillation I48.1 ; Chronic obstructive pulmonary disease, unspecified COPD type J44.9 ; Nocturnal hypoxia G47.34 ; Irritable bowel syndrome without diarrhea K58.9 ; Hyponatremia E87.1 ; Osteoporosis M81.0 and Primary insomnia F51.01 [place] [address] 69402- 4596 Feb, [address] 31031- 4952 January, [place] [id number] [place] [address] 61959- 9096 Oct, Essential hypertension I10 [place] [address] 37454- 0728 Sep, Shortness of breath R06.02 ; COPD with exacerbation J44.1 and Weakness R53.1 [place] [id number] [place] [address] 43392- 0984 Sep, Drug-induced constipation K59.03 and Allergic rhinitis, unspecified allergic rhinitis trigger, unspecified rhinitis seasonality J30.9 [place] [id number] [place] [address] 42345- 9214 Sep, [place] [address] 14216- 5533 Sep, [facility] [id number] [place] [address] 13084- 3490 Sep, [place] [address] 90549- 3545 Jul, [place] [address] 38738- 5508 Jul, Other chronic pain G89.29 ; Hematuria R31.9 ; Screening for breast cancer Z12.39 ; Anxiety F41.9 ; Primary insomnia F51.01 ; Drug-induced constipation K59.03 and Encounter for immunization Z23 [place] [address] 97280- 8727 Jul, 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 [place] [address] 14575- 6725 Jun, 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 and Hyponatremia E87.1 [place] [id number] [place] [address] 79374- 2696 Jun, 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 and Hyponatremia E87.1 [place] [address] 05090- 6451 May, Hyponatremia E87.1 [place] [facility] [id number] [place] [address] 39673- 5608 May, Essential hypertension I10 ; Tobacco use Z72.0 ; Hyponatremia E87.1 ; Allergic rhinitis, unspecified allergic rhinitis trigger, unspecified rhinitis seasonality J30.9 and Osteoporosis M81.0 [place] [id number] [place] [address] 73798- 5479 Mar, [place] [address] 45755- 6451 Mar, [place] [id number] [place] [address] 15445- 9404 Mar, Hyponatremia E87.1 [place] [id number] [place] [address] 20354- 6518 24 Feb, 2016 Essential hypertension I10 ; Hypothyroidism, unspecified hypothyroidism [...] Concern about skin disease without diagnosis Z71.1 [place] [address] 51244- 0962 Feb, [place] [address] 66016- 9286 Feb, Other nonspecific abnormal finding of lung field R91.8 [place] [id number] [place] [address] 59387- 9247 Dec, [place] [address] 80941- 3781 Dec, [place] [id number] [place] [address] 28955- 4538 Nov, [place] [id number] [place] [address] 44500- 9088 Nov, [place] [id number] [place] [address] 51045- 0637 Oct, [place] [id number] [place] [address] 52869- 7762 Oct, [place] [id number] [place] [address] 59991- 1359 Oct, [place] [id number] [place] [address] 77634- 8205 Aug, Chronic obstructive pulmonary disease, unspecified COPD type J44.9 [facility] [address] 79389- 3631 Aug, [facility] [address] 80097- 9430 Aug, Rectal bleeding K62.5 and GERD (gastroesophageal reflux disease) K21.9 [facility] [address] 88554- 6515 Jul, [facility] [address] 64091- 2553 Jul, 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 [facility] [address] 71922- 1955 Jun, [facility] [address] 74645- 0973 Jun, [facility] [address] 66989- 1614 23 May, 2015 Adrenal mass 255.9 and Abnormal dexamethasone suppression test 794.6 [facility] [address] 47154- 5747 May, Adrenal mass 255.9 [facility] [address] 58284- 6518 May, [facility] [address] 90948- 3524 18 May, 2015 Pneumonia 486 and COPD (chronic obstructive pulmonary disease) 496 [facility] [id number] [place] [address] 05973- 2662 17 May, 2015 [facility] [address] 65716- 6044 14 May, 2015 [facility] [address] 68414- 6699 11 May, 2015 [facility] [address] 33037- 6109 10 May, 2015 [facility] [address], [place] [address]- 1742 May, [facility] [id number] [place] [address] 13400- 6201 May, [facility] [id number] [place] [address] 79543- 0890 May, Adrenal mass 255.9 [facility] [id number] [place] [address] 35518- 5166 Apr, Adrenal mass 255.9 ; Hypothyroidism 244.9 ; Chronic sore throat 472.1 ; Atrial fibrillation 427.31 ; Hypertension 401.9 ; Generalized anxiety disorder 300.02 ; Chronic pain 338.29 and COPD (chronic obstructive pulmonary disease) 496 [facility] [id number] [place] [address] 00336- 4982 Apr, [facility] [id number] [place] [address] 92466- 4185 Apr, [facility] [id number] [place] [address] 61672- 1343 Mar, [facility] [id number] [place] [address] 58531- 3538 Mar, Adrenal mass 255.9 [facility] [id number] [place] [address] 01645- 0865 Mar, [facility] [id number] [place] [address] 91183- 0655 Mar, Chronic sore throat 472.1 and Adrenal mass 255.9 [facility] [id number] [place] [address] 20149- 2523 Mar, [facility] [id number] [place] [address] 91790- 6851 Feb, [facility] [id number] [place] [address] 13124- 5282 Feb, [facility] [address], [place] [address]- 9696 Feb, [facility] [address], [place] [address]- 6480 Feb, [facility] [address], [place] [address]- 3264 Feb, [facility] [id number] [place] [address] 53810- 9486 Feb, [facility] [address], [place] [address]- 1848 Feb, [facility] [address] [place] [address] 29556- 3178 Feb, [facility] [address], [place] [address]- 7600 Feb, [facility] [address], [place] [address]- 1052 January, Adrenal mass 255.9 ; Hypothyroidism 244.9 ; Chronic sore throat 472.1 ; Atrial fibrillation 427.31 ; Hypertension 401.9 ; Generalized anxiety disorder 300.02 ; Chronic pain 338.29 and COPD (chronic obstructive pulmonary disease) 496 [facility] [address], [place] [address]- 2234 January, [facility] [address], [place] [address]- 6275 January, [facility] [id number], [place] [address]- 0974 January, Sinusitis 473.9 [facility] [address], [place] [address]- 7951 January, [facility] [address] 7173 January, [facility] [address], [place] [address]- 8581 14 Dec, 2014 [facility] [place] [facility] [address] [id number] [place] [address]- 3721 13 Dec, 2014 [facility] [place] [facility] [address] [facility] [id number] [place] [address]- 8665 19 Nov, 2014 [facility] [place] [facility] [address] [facility] [id number] [place] [address]- 2098 Nov, [facility] [place] [facility] [address] [facility] [id number] [place] [address]- 8354 Nov, [facility] [place] [facility] [address] [facility] [id number] [place] [address]- 5614 Nov, [facility] [place] [facility] [address] [facility] [id number] [place] [address]- 1923 Oct, [facility] [place] [facility] [address] [facility] [id number] [place] [address]- 2392 Oct, [facility] [place] [facility] [address] [facility] [id number] [place] [address]- 8231 Oct, 2014 [facility] [place] [facility] [address] [facility] [id number] [place] [address]- 2245 Oct, 2014 [facility] [place] [facility] [address] [facility] [id number] [place] [address]- 4715 Oct, [facility] [place] [facility] [address] [facility] [id number], [place] [address]- 0696 Oct, 2014 [facility] [place] [facility] [address] [facility] [id number], [place] [address]- 3990 Oct, 2014 [facility] [place] [facility] [address] [facility] [id number] [place] [address]- 3483 Oct, 2014 [facility] [place] [facility] [address] [facility] [id number], [place] [address]- 2467 Oct, 2014 [facility] [place] [facility] [address] [facility] [id number], [place] [address]- 5763 25 Oct, 2014 [facility] [address], [place] [address]- 1032 Oct, [facility] [address] 2177 Oct, [facility] [address] 9483 Oct, [facility] [address] 9638 Oct, [facility] [address] 6112 Oct, [facility] [address] 0821 Oct, [facility] [address] 5001 Oct, [facility] [address], [place] [address]- 7937 Oct, [facility] [address], [place] [address]- 5325 Sep, [facility] [address], [place] [address]- 9401 Sep, [facility] [address], [place] [address]- 8882 May, IMMUNIZATIONS No Known Immunizations SOCIAL HISTORY Never Assessed REASON FOR VISIT Prior Authorization PLAN OF CARE VITAL SIGNS MEDICATIONS Unknown [...]
--- OUTSIDE RECORDS SUMMARY | 2018-06-29 08:55 | XMS REPORT ---
Author Author SHANICE OBINNA [facility] Address [address] [place] [address] Care Team Providers Care Ladler Name Role Phone OBINNA PRASAD Unavailable PROBLEMS Type Condition ICD9-CM Code [id number] Code Onset Dates Condition Status SNOMED Code Problem Rectal bleeding K62.5 Active 45836957 Problem Allergic rhinitis, unspecified allergic rhinitis trigger, unspecified rhinitis seasonality J30.9 Active 89476934 Problem Osteoporosis M81.0 Active 83699628 Problem Paroxysmal atrial fibrillation I48.0 Active 277696355 Problem Anxiety F41.9 Active 19489523 Problem Chronic sore throat J31.2 Active 296604045 Problem 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 Active 55344916 Problem Drug induced constipation K59.03 Active 493715920304269 Problem Primary insomnia F51.01 Active 4521676 Problem Chronic pain syndrome G89.4 Active 696684901 Problem T12 compression fracture S22.080A Active 568628564 Problem Other nonspecific abnormal finding of lung field R91.8 Resolved 596646878 Problem Irritable bowel syndrome without diarrhea K58.9 Active 39896982 Problem 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 Active 927780860 Problem Tobacco use Z72.0 Active 980659470 Problem Nocturnal hypoxia G47.34 Active 262025642 Problem Essential hypertension I10 Active 68016779 Problem Hypothyroidism, unspecified hypothyroidism type E03.9 Active 02490388 Problem 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 Active 5070486913918851 Problem Chronic obstructive pulmonary disease, unspecified COPD type J44.9 Active 07713831 Problem Other chronic pain G89.29 Active 99453416 ALLERGIES No Information ENCOUNTERS Encounter Location Date Diagnosis [facility] [address] [facility] [id number] [address] 16 Jun, 2018 [facility] [address] [address] 7694 19 May, 2018 [facility] [address] [address] 2774 18 May, 2018 Hyperkalemia E87.5 [facility] [address] [address] 8686 13 May, 2018 [facility] [id number] [place] [address] 24384- 6573 11 May, 2018 Other chronic pain G89.29 [facility] [id number] [place] [address] 92394- 2359 31 Apr, 2018 Hyperkalemia E87.5 [facility] [id number] [place] [address] 82981- 2851 Apr, [facility] [id number] [place] [address] 59338- 1789 Apr, Sore throat J02.9 ; Chronic sore throat J31.2 ; Otalgia, bilateral H92.03 ; Other chronic pain G89.29 ; Paroxysmal atrial fibrillation I48.0 ; Essential hypertension I10 ; Hypothyroidism, unspecified hypothyroidism type E03.9 ; Fatigue, unspecified type R53.83 ; 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 and Acute non-recurrent pansinusitis J01.40 [facility] [address] [address]- 5926 Apr, Chronic pain syndrome G89.4 [facility] [address] [address]- 4845 Apr, [facility] [address] [address]- 0252 Mar, [facility] [id number] [place] [address] 31205- 3356 Mar, [facility] [address] [address]- 6184 Mar, Hypothyroidism, unspecified hypothyroidism type E03.9 [facility] [address] [address]- 0739 Mar, [facility] [id number] [place] [address] 70755- 7482 Mar, Chronic pain syndrome G89.4 [facility] [id number] [address]- 7904 Mar, [facility] [id number] [place] [address] 52182- 7604 Mar, Chronic pain syndrome G89.4 [facility] [id number] [address]- 3908 Mar, [facility] [id number] [place] [address] 78891- 4558 Mar, Chronic pain syndrome G89.4 and Other chronic pain G89.29 [facility] [id number] [place] [address] 19995- 5216 Feb, Chronic obstructive pulmonary disease, unspecified COPD type J44.9 [facility] [address] [address]- 0144 Feb, [facility] [address] [address]- 1773 Feb, [facility] [address] [address]- 4630 Feb, [facility] [address] [address]- 5013 Feb, [facility] [id number] [address]- 4555 Feb, [facility] [id number] [address]- 5365 Feb, Other chronic pain G89.29 ; Rectal bleeding K62.5 and Chronic pain syndrome G89.4 [facility] [address] [address]- 9606 Feb, [facility] [id number] [place] [address] 41800- 8481 Feb, [facility] [address] 58354- 7105 Feb, Other chronic pain G89.29 ; Essential hypertension I10 ; Osteoporosis M81.0 ; Drug induced constipation K59.03 ; Chronic obstructive pulmonary disease, unspecified COPD type J44.9 ; Hypothyroidism, unspecified hypothyroidism type E03.9 ; 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 ; Right ear pain H92.01 and Sore throat J02.9 [facility] [address] 71430- 2266 January, [facility] [address] 09719- 4096 January, Low back pain M54.5 ; Other chronic pain G89.29 ; Pain in thoracic spine M54.6 and Neck pain M54.2 [facility] [id number] [place] [address] 34259- 7333 Dec, Low back pain M54.5 ; Other chronic pain G89.29 ; Pain in thoracic spine M54.6 and Neck pain M54.2 [facility] [id number] [place] [address] 45339- 6554 Dec, 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 and Chronic obstructive pulmonary disease, unspecified COPD type J44.9 [facility] [id number] [place] [address] 96574- 5862 Dec, [facility] [id number] [place] [address] 06355- 8258 Dec, Hypothyroidism, unspecified hypothyroidism type E03.9 [facility] [id number] [place] [address] 80847- 9693 Oct, Essential hypertension I10 [facility] [address] 45992- 4675 Oct, [facility] [id number] [place] [address] 89016- 8795 Sep, [facility] [id number] [place] [address] 78602- 4492 Sep, 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 [facility] [address] 78051- 3191 Aug, Drug induced constipation K59.03 [facility] [id number] [place] [address] 94284- 0546 Aug, [facility] [address] 95345- 3759 Jul, Other chronic pain G89.29 [facility] [address] 06840- 6128 Jul, [facility] [address] 78547- 6018 Jul, Well woman exam (no gynecological exam) Z00.00 ; Encounter for immunization Z23 ; Tobacco use Z72.0 and 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 [facility] [id number] [place] [address] 04294- 8581 Jul, [facility] [id number] [place] [address] 03772- 7908 Jul, Drug induced constipation K59.03 [facility] [id number] [place] [address] 51482- 3594 Jun, Chronic obstructive pulmonary disease, unspecified COPD type J44.9 ; Tobacco use Z72.0 ; Hypothyroidism, unspecified hypothyroidism type E03.9 ; Other chronic pain G89.29 ; Drug induced constipation K59.03 and COPD exacerbation J44.1 [facility] [id number] [place] [address] 51673- 5610 Jun, [facility] [id number] [place] [address] 71399- 2535 Jun, [facility] [id number] [place] [address] 87880- 6991 Jun, Osteoporosis M81.0 [facility] [id number] [place] [address] 34141- 0043 Jun, [facility] [id number] [place] [address] 67129- 2040 Jun, Other chronic pain G89.29 [facility] [id number] [place] [address] 09652- 1609 Jun, Other chronic pain G89.29 [facility] [id number] [place] [address] 97707- 8604 Jun, Hypothyroidism, unspecified hypothyroidism type E03.9 [facility] [id number] [place] [address] 23718- 5774 Jun, [facility] [id number] [place] [address] 97174- 0439 May, [facility] [id number] [place] [address] 97136- 7761 May, COPD exacerbation J44.1 ; Pain of left lower extremity M79.605 ; Burn T30.0 ; Fatigue, unspecified type R53.83 ; Anemia, unspecified type D64.9 ; Adverse effect of other opioids, initial encounter T40.2X5A and Drug induced constipation K59.03 [facility] [id number] [place] [address] 03849- 6110 May, [facility] [id number] [place] [address] 43757- 0915 May, Burn T30.0 [facility] [id number] [place] [address] 11816- 1623 May, Other chronic pain G89.29 and Burn T30.0 [facility] [id number] [place] [address] 66987- 7338 May, Other chronic pain G89.29 [facility] [address] [address]- 5929 Apr, [facility] [id number] [place] [address] 87883- 5745 Apr, [facility] [id number] [place] [address] 44064- 8633 Apr, [facility] [id number] [place] [address] 97230- 2659 Apr, [facility] [id number] [place] [address] 85584- 3210 Apr, Other chronic pain G89.29 [facility] [id number] [place] [address] 01121- 9026 Apr, Fatigue, unspecified type R53.83 ; Hypothyroidism, unspecified hypothyroidism type E03.9 ; Other chronic pain G89.29 ; Essential hypertension I10 ; Persistent atrial fibrillation I48.1 ; Chronic obstructive pulmonary disease, unspecified COPD type J44.9 ; Nocturnal hypoxia G47.34 ; Irritable bowel syndrome without diarrhea K58.9 ; Hyponatremia E87.1 ; Osteoporosis M81.0 and Primary insomnia F51.01 [facility] [id number] [place] [address] 80391- 9615 Feb, [facility] [id number] [place] [address] 02267- 9066 January, [facility] [id number] [place] [address] 06287- 6556 Oct, Essential hypertension I10 [facility] [id number] [place] [address] 76468- 2413 Sep, Shortness of breath R06.02 ; COPD with exacerbation J44.1 and Weakness R53.1 [facility] [id number] [place] [address] 78550- 5336 Sep, Drug-induced constipation K59.03 and Allergic rhinitis, unspecified allergic rhinitis trigger, unspecified rhinitis seasonality J30.9 [place] [address] 57459- 9836 Sep, [place] [address] 49259- 1961 Sep, [address] 38877- 4025 Sep, [place] [address] 99940- 3582 Jul, [address] 14469- 6591 Jul, Other chronic pain G89.29 ; Hematuria R31.9 ; Screening for breast cancer Z12.39 ; Anxiety F41.9 ; Primary insomnia F51.01 ; Drug-induced constipation K59.03 and Encounter for immunization Z23 [place] [address] 92646- 7885 Jul, 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 33849- 3590 Jun, 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 and Hyponatremia E87.[address] 86371- 5520 Jun, 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 and Hyponatremia E87.1 [place] [address] 42814- 4841 May, Hyponatremia E87.[address] 56976- 2426 May, Essential hypertension I10 ; Tobacco use Z72.0 ; Hyponatremia E87.1 ; Allergic rhinitis, unspecified allergic rhinitis trigger, unspecified rhinitis seasonality J30.9 and Osteoporosis M81.[address] 65447- 2873 Mar, [facility] [id number] [place] [address] 93925- 6941 Mar, [facility] [id number] [place] [address] 67817- 9097 Mar, Hyponatremia E87.1 [facility] [id number] [place] [address] 73323- 8878 Feb, Essential hypertension I10 ; Hypothyroidism, unspecified [...] Concern about skin disease without diagnosis Z71.1 [facility] [id number] [place] [address] 31023- 7726 Feb, [facility] [id number] [place] [address] 69894- 8367 Feb, Other nonspecific abnormal finding of lung field R91.8 [facility] [id number] [place] [address] 50235- 0218 Dec, [place] [facility] [id number] [place] [address] 17748- 4514 Dec, [place] [facility] [id number] [place] [address] 44401- 2012 Nov, [facility] [id number] [place] [address] 14898- 2332 Nov, [facility] [id number] [place] [address] 17350- 3997 Oct, [facility] [facility] [id number] [place] [address] 63500- 5957 Oct, [facility] [id number] [place] [address] 76348- 0106 Oct, [facility] [id number] [place] [address] 04682- 5132 Aug, Chronic obstructive pulmonary disease, unspecified COPD type J44.9 [facility] [id number] [place] [address] 28696- 9363 Aug, [facility] [id number] [place] [address] 57762- 1212 Aug, Rectal bleeding K62.5 and GERD (gastroesophageal reflux disease) K21.9 [facility] [address] 72803- 7793 Jul, [facility] [id number] [place] [address] 33344- 5559 Jul, 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 [facility] [id number] [place] [address] 35311- 9175 Jun, [facility] [id number] [place] [address] 98279- 0519 Jun, [facility] [id number] [place] [address] 39406- 4944 May, Adrenal mass 255.9 and Abnormal dexamethasone suppression test 794.6 [facility] [id number] [place] [address] 31199- 4847 May, Adrenal mass 255.9 [facility] [id number] [place] [address] 55432- 4733 May, [facility] [id number] [place] [address] 70863- 5018 May, Pneumonia 486 and COPD (chronic obstructive pulmonary disease) 496 [facility] [id number] [place] [address] 67073- 6952 May, [facility] [address] [id number] [address]- 9044 14 May, 2015 [facility] [id number] [place] [address] 03195- 0530 11 May, 2015 [facility] [id number] [place] [address] 19088- 2078 10 May, 2015 [facility] [id number] [place] [address] 00494- 8275 09 May, 2015 [facility] [id number] [place] [address] 18973- 5964 08 May, 2015 [facility] [id number] [place] [address] 09450- 9041 May, Adrenal mass 255.9 [facility] [id number] [place] [address] 75120- 7891 Apr, Adrenal mass 255.9 ; Hypothyroidism 244.9 ; Chronic sore throat 472.1 ; Atrial fibrillation 427.31 ; Hypertension 401.9 ; Generalized anxiety disorder 300.02 ; Chronic pain 338.29 and COPD (chronic obstructive pulmonary disease) 496 [facility] [id number] [place] [address] 16005- 1941 Apr, [facility] [id number] [place] [address] 13671- 7623 Apr, [facility] [id number] [place] [address] 41643- 6583 Mar, [facility] [id number] [place] [address] 00162- 2300 Mar, Adrenal mass 255.9 [facility] [id number] [place] [address] 24581- 8141 Mar, [facility] [id number] [place] [address] 05800- 9838 Mar, Chronic sore throat 472.1 and Adrenal mass 255.9 [facility] [id number] [place] [address] 44288- 9714 Mar, [facility] [address] [address]- 6363 Feb, [facility] [address] [address]- 5422 Feb, [facility] [address] [address]- 3820 Feb, [facility] [address] [address]- 6340 Feb, [facility] [address] [address]- 6299 Feb, [facility] [address] [address]- 2237 Feb, [facility] [address] [address]- 4583 Feb, [facility] [address] [address]- 0831 Feb, [facility] [address] [address]- 7587 Feb, [facility] [address] [address]- 2532 January, Adrenal mass 255.9 ; Hypothyroidism 244.9 ; Chronic sore throat 472.1 ; Atrial fibrillation 427.31 ; Hypertension 401.9 ; Generalized anxiety disorder 300.02 ; Chronic pain 338.29 and COPD (chronic obstructive pulmonary disease) 496 [facility] [id number] [address]- 7553 January, [facility] [address] [address]- 8038 January, [facility] [id number] [address]- 1720 January, Sinusitis 473.9 [facility] [id number] [place] [address]- 5453 14 Jan, 2015 [facility] [place] [facility] [address] [id number] [address]- 0007 06 Jan, 2015 [facility] [place] [facility] [address] [id number] [place] [address]- 3090 14 Dec, 2014 [facility] [place] [facility] [address] [facility] [id number] [place] [address]- 5397 Dec, [facility] [place] [facility] [address] [id number] [place] [address]- 3315 Nov, [facility] [place] [facility] [address] [id number] [place] [address]- 7974 19 Nov, 2014 [facility] [place] [facility] [address] [facility] [id number] [place] [address]- 3195 Nov, [facility] [place] [facility] [address] [facility] [id number] [place] [address]- 0899 Nov, [facility] [place] [facility] [address] [facility] [id number] [place] [address]- 4640 Oct, [facility] [place] [facility] [address] [facility] [id number] [place] [address]- 7523 Oct, [facility] [place] [facility] [address] [facility] [id number] [place] [address]- 2305 Oct, [facility] [place] [facility] [address] [facility] [id number] [place] [address]- 9308 Oct, 2014 [facility] [place] [facility] [address] [facility] [id number] [place] [address]- 8581 Oct, [facility] [place] [facility] [address] [facility] [id number] [place] 3586 Oct, [facility] [place] [facility] [address] [facility] [id number] [place] 1916 Oct, 2014 [facility] [place] [facility] [address] [facility] [id number] [place] [address]- 0153 Oct, 2014 [facility] [id number] [place] [address] 19619- 8055 Oct, 2014 [facility] [id number] [place] [address] [phone] Oct, 2014 [facility] [id number] [place] [address] [phone]- [phone] Oct, 2014 [facility] [id number] [place] [address] [phone] Oct, 2014 [facility] [id number] [place] [address] [phone]- [phone] Oct, 2014 [facility] [id number] [place] [address] [phone] Oct, 2014 [facility] [id number] [place] [address] [phone]- [phone] Oct, 2014 [facility] [id number] [place] [address] [phone]- [phone] Oct, 2014 [facility] [id number] [place] [address] [phone]- [phone] Oct, 2014 [facility] [id number] [place] [address] [phone]- [phone] Oct, [facility] [id number] [place] [address] [phone] Sep, [facility] [id number] [address] Sep, [facility] [id number] [place] [address] [phone]- [phone] May, IMMUNIZATIONS No Known Immunizations SOCIAL HISTORY Never Assessed REASON FOR VISIT Controlled Medication Refill PLAN OF CARE VITAL SIGNS MEDICATIONS Medication Instructions Dosage Frequency Start Date End Date Duration Status Embeda 20-0.8 MG Orally Once a day 1 capsule 24h Apr, 28 days Active RESULTS No Results PROCEDURES [...]
[2018-06-29] MEDS ORDERED: MIDAZOLAM 2 MG/2 ML (VERSED) VIAL ONE (08:56)
--- OUTSIDE RECORDS SUMMARY | 2018-06-29 08:56 | XMS REPORT ---
Author Author SHANICE OBINNA [facility] Address [address] [place] [address] Care Team Providers Care Molecular Spectroscopist Name Role Phone OBINNA PRASAD Unavailable PROBLEMS Type Condition ICD9-CM Code [id number] Code Onset Dates Condition Status SNOMED Code Problem Rectal bleeding K62.5 Active 19082337 Problem Allergic rhinitis, unspecified allergic rhinitis trigger, unspecified rhinitis seasonality J30.9 Active 69889874 Problem Osteoporosis M81.0 Active 09948273 Problem Paroxysmal atrial fibrillation I48.0 Active 998692939 Problem Anxiety F41.9 Active 02375873 Problem Chronic sore throat J31.2 Active 144750931 Problem 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 Active 79448978 Problem Drug induced constipation K59.03 Active 063647860831230 Problem Primary insomnia F51.01 Active 9074880 Problem Chronic pain syndrome G89.4 Active 219877028 Problem T12 compression fracture S22.080A Active 066507531 Problem Other nonspecific abnormal finding of lung field R91.8 Resolved 721443731 Problem Irritable bowel syndrome without diarrhea K58.9 Active 26676597 Problem 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 Active 592446083 Problem Tobacco use Z72.0 Active 629083749 Problem Nocturnal hypoxia G47.34 Active 776487644 Problem Essential hypertension I10 Active 31042384 Problem Hypothyroidism, unspecified hypothyroidism type E03.9 Active 30943997 Problem 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 Active 4705869772190189 Problem Chronic obstructive pulmonary disease, unspecified COPD type J44.9 Active 07306587 Problem Other chronic pain G89.29 Active 72474675 ALLERGIES No Information ENCOUNTERS Encounter Location Date Diagnosis [facility] [address] [facility] [id number] [address] Apr, Hyperkalemia E87.5 [facility] [id number] [place] [address] 94975- 7498 Apr, [facility] [id number] [place] [address] 88435- 0305 Apr, Sore throat J02.9 ; Chronic sore throat J31.2 ; Otalgia, bilateral H92.03 ; Other chronic pain G89.29 ; Paroxysmal atrial fibrillation I48.0 ; Essential hypertension I10 ; Hypothyroidism, unspecified hypothyroidism type E03.9 ; Fatigue, unspecified type R53.83 ; 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 and Acute non-recurrent pansinusitis J01.40 [facility] [id number] [place] [address] 30797- 9729 Apr, Chronic pain syndrome G89.4 [facility] [id number] [place] [address] 49072- 7119 Apr, [facility] [id number] [place] [address] 13958- 2417 Mar, [facility] [id number] [place] [address] 89480- 1883 Mar, [facility] [id number] [place] [address] 06451- 5461 Mar, Hypothyroidism, unspecified hypothyroidism type E03.9 [facility] [id number] [place] [address] 15240- 9898 Mar, [facility] [id number] [place] [address] 69228- 1183 Mar, Chronic pain syndrome G89.4 [facility] [id number] [place] [address] 33618- 4321 Mar, [facility] [id number] [place] [address] 56741- 6184 Mar, Chronic pain syndrome G89.4 [facility] [id number] [place] [address] 07331- 4840 Mar, [facility] [id number] [place] [address] 77165- 8033 Mar, Chronic pain syndrome G89.4 and Other chronic pain G89.29 [facility] [id number] [place] [address] 18129- 9582 Feb, Chronic obstructive pulmonary disease, unspecified COPD type J44.9 [facility] [id number] [place] [address] 79334- 5366 Feb, [facility] [id number] [place] [address] 14526- 2177 Feb, [facility] [id number] [place] [address] 17907- 1928 Feb, [facility] [id number] [place] [address] 90457- 5236 Feb, [facility] [id number] [place] [address] 07623- 2311 Feb, [facility] [id number] [place] [address] 59808- 9328 Feb, Other chronic pain G89.29 ; Rectal bleeding K62.5 and Chronic pain syndrome G89.4 [facility] [id number] [place] [address] 32042- 0458 15 Feb, 2018 [facility] [address] [address] 9540 Feb, [facility] [id number] [place] [address] 28220- 1973 05 Feb, 2018 Other chronic pain G89.29 ; Essential hypertension I10 ; Osteoporosis M81.0 ; Drug induced constipation K59.03 ; Chronic obstructive pulmonary disease, unspecified COPD type J44.9 ; Hypothyroidism, unspecified hypothyroidism type E03.9 ; 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 ; Right ear pain H92.01 and Sore throat J02.9 [facility] [id number] [place] [address] 66317- 3466 January, [facility] [id number] [place] [address] 01758- 7156 January, Low back pain M54.5 ; Other chronic pain G89.29 ; Pain in thoracic spine M54.6 and Neck pain M54.2 [facility] [id number] [place] [address] 57165- 6084 Dec, Low back pain M54.5 ; Other chronic pain G89.29 ; Pain in thoracic spine M54.6 and Neck pain M54.2 [place] [address] 21335- 6054 Dec, 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 and Chronic obstructive pulmonary disease, unspecified COPD type J44.9 [place] [address] 67264- 9074 Dec, [facility] [address] 55256- 8426 Dec, Hypothyroidism, unspecified hypothyroidism type E03.9 [facility] [id number] [place] [address] 19737- 1282 Oct, Essential hypertension I10 [facility] [id number] [place] [address] 35980- 8370 Oct, [facility] [id number] [place] [address] 52073- 2044 Sep, [facility] [id number] [place] [address] 27232- 4251 Sep, 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 [facility] [address] 79795- 1215 Aug, Drug induced constipation K59.03 [facility] [id number] [place] [address] 50189- 5078 Aug, [facility] [address] 60751- 9557 Jul, Other chronic pain G89.29 [facility] [id number] [place] [address] 56886- 4390 Jul, [facility] [id number] [place] [address] 29983- 2127 Jul, Well woman exam (no gynecological exam) Z00.00 ; Encounter for immunization Z23 ; Tobacco use Z72.0 and 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 [facility] [id number] [place] [address] 55691- 7433 Jul, [facility] [id number] [place] [address] 25117- 3164 Jul, Drug induced constipation K59.03 [place] [id number] [place] [address] 84697- 9952 Jun, Chronic obstructive pulmonary disease, unspecified COPD type J44.9 ; Tobacco use Z72.0 ; Hypothyroidism, unspecified hypothyroidism type E03.9 ; Other chronic pain G89.29 ; Drug induced constipation K59.03 and COPD exacerbation J44.1 [facility] [id number] [place] [address] 90900- 1342 Jun, [facility] [id number] [place] [address] 36464- 6695 Jun, [facility] [id number] [place] [address] 10489- 7228 Jun, Osteoporosis M81.0 [facility] [id number] [place] [address] 69929- 3210 Jun, [facility] [id number] [place] [address] 21350- 3886 Jun, Other chronic pain G89.29 [facility] [id number] [place] [address] 97443- 2817 Jun, Other chronic pain G89.29 [facility] [id number] [place] [address]- 9518 Jun, Hypothyroidism, unspecified hypothyroidism type E03.9 [facility] [id number] [place] [address] 29832- 3266 Jun, [facility] [id number] [place] [address] 44794- 3278 May, [facility] [id number] [place] [address] 62928- 4929 May, COPD exacerbation J44.1 ; Pain of left lower extremity M79.605 ; Burn T30.0 ; Fatigue, unspecified type R53.83 ; Anemia, unspecified type D64.9 ; Adverse effect of other opioids, initial encounter T40.2X5A and Drug induced constipation K59.03 [facility] [id number] [place] [address] 14091- 9025 May, [facility] [id number] [place] [address] 64531- 5518 May, Burn T30.0 [facility] [id number] [place] [address] 14433- 2960 18 May, 2017 Other chronic pain G89.29 and Burn T30.0 [facility] [id number] [place] [address] 47256- 1099 14 May, 2017 Other chronic pain G89.29 [facility] [id number] [place] [address] 15467- 0666 Apr, [facility] [id number] [place] [address] 69466- 6497 Apr, [facility] [id number] [place] [address] 23958- 9115 Apr, [facility] [id number] [place] [address] 04799- 1791 Apr, [facility] [id number] [place] [address] 24182- 5337 Apr, Other chronic pain G89.29 [place] [address] 51137- 9912 15 Apr, 2017 Fatigue, unspecified type R53.83 ; Hypothyroidism, unspecified hypothyroidism type E03.9 ; Other chronic pain G89.29 ; Essential hypertension I10 ; Persistent atrial fibrillation I48.1 ; Chronic obstructive pulmonary disease, unspecified COPD type J44.9 ; Nocturnal hypoxia G47.34 ; Irritable bowel syndrome without diarrhea K58.9 ; Hyponatremia E87.1 ; Osteoporosis M81.0 and Primary insomnia F51.01 [place] [address] 78166- 4222 Feb, [address] 86627- 0236 January, [address] 83431- 3464 Oct, Essential hypertension I10 [address] 71201- 8774 Sep, Shortness of breath R06.02 ; COPD with exacerbation J44.1 and Weakness R53.[address] 98866- 1636 Sep, Drug-induced constipation K59.03 and Allergic rhinitis, unspecified allergic rhinitis trigger, unspecified rhinitis seasonality J30.9 [place] [id number] [place] [address] 36759- 8703 Sep, [place] [address] 72389- 1784 Sep, [place] [address] 98345- 9538 Sep, [place] [address] 14920- 6260 Jul, [address] 30948- 0605 Jul, Other chronic pain G89.29 ; Hematuria R31.9 ; Screening for breast cancer Z12.39 ; Anxiety F41.9 ; Primary insomnia F51.01 ; Drug-induced constipation K59.03 and Encounter for immunization Z23 [place] [id number] [place] [address] 96170- 2300 Jul, 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 [place] [address] 99017- 1295 Jun, 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 and Hyponatremia E87.[address] 13236- 6851 Jun, 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 and Hyponatremia E87.1 [place] [address] 98574- 8474 May, Hyponatremia E87.1 [place] [address] 15686- 7964 May, Essential hypertension I10 ; Tobacco use Z72.0 ; Hyponatremia E87.1 ; Allergic rhinitis, unspecified allergic rhinitis trigger, unspecified rhinitis seasonality J30.9 and Osteoporosis M81.0 [place] [id number] [place] [address] 70879- 7679 Mar, [address] 13767- 2513 Mar, [place] [address] 38318- 1257 Mar, Hyponatremia E87.[address] 37596- 1339 Feb, Essential hypertension I10 ; Hypothyroidism, unspecified [...] Concern about skin disease without diagnosis Z71.1 [facility] [id number] [place] [address] 09269- 1037 Feb, [facility] [id number] [place] [address] 40459- 0471 Feb, Other nonspecific abnormal finding of lung field R91.8 [facility] [id number] [place] [address] 96752- 2581 Dec, [facility] [id number] [place] [address] 89579- 6375 Dec, [facility] [id number] [place] [address] 25252- 6221 Nov, [facility] [id number] [place] [address] 78058- 8925 Nov, [facility] [id number] [place] [address] 12131- 8550 Oct, [facility] [id number] [place] [address] 38688- 4064 Oct, [facility] [id number] [place] [address] 95435- 7289 Oct, [facility] [id number] [place] [address] 67423- 7156 16 Aug, 2015 Chronic obstructive pulmonary disease, unspecified COPD type J44.9 [facility] [id number] [place] [address] 96047- 7202 14 Aug, 2015 [facility] [id number] [place] [address] 18081- 1717 10 Aug, 2015 Rectal bleeding K62.5 and GERD (gastroesophageal reflux disease) K21.9 [facility] [id number] [address]- 0499 Jul, [facility] [id number] [place] [address] 14047- 7558 Jul, 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 [facility] [id number] [place] [address] 41159- 2729 Jun, [facility] [id number] [place] [address] 56009- 9053 05 Jun, 2015 [facility] [id number] [place] [address] 65707- 9619 23 May, 2014 Adrenal mass 255.9 and Abnormal dexamethasone suppression test 794.6 [facility] [id number] [place] [address] 32894- 7606 21 May, 2015 Adrenal mass 255.9 [facility] [id number] [place] [address] 48597- 5581 May, [facility] [id number] [place] [address] 77161- 0344 18 May, 2015 Pneumonia 486 and COPD (chronic obstructive pulmonary disease) 496 [facility] [id number] [place] [address] 92056- 8379 17 May, 2015 [facility] [address] [place] [address] 19513- 9653 14 May, 2015 [facility] [id number] [place] [address] 42629- 8974 11 May, 2014 [facility] [id number] [place] [address] 34922- 2545 10 May, 2014 [facility] [id number] [place] [address] 10913- 9246 09 May, 2014 [facility] [address] [place] [address] 13537- 1833 08 May, 2014 [facility] [id number] [place] [address] 48130- 8865 May, Adrenal mass 255.9 [facility] [address], [place] [address]- 4365 Apr, Adrenal mass 255.9 ; Hypothyroidism 244.9 ; Chronic sore throat 472.1 ; Atrial fibrillation 427.31 ; Hypertension 401.9 ; Generalized anxiety disorder 300.02 ; Chronic pain 338.29 and COPD (chronic obstructive pulmonary disease) 496 [facility] [id number] [place] [address] 38729- 7870 Apr, [facility] [id number] [place] [address] 80163- 0999 Apr, [facility] [id number] [place] [address] 62902- 6489 Mar, [facility] [id number] [place] [address] 41204- 9755 Mar, Adrenal mass 255.9 [facility] [id number] [place] [address] 56581- 9980 Mar, [facility] [id number] [place] [address] 39076- 8074 Mar, Chronic sore throat 472.1 and Adrenal mass 255.9 [facility] [address] [place] [address] 07465- 6140 Mar, [facility] [address] [place] [address] 16722- 0555 Feb, [facility] [id number] [place] [address] 37273- 5170 Feb, [facility] [id number] [place] [address] 96462- 2953 Feb, [facility] [id number] [place] [address] 48269- 4111 Feb, [facility] [address] [place] [address] 93042- 9852 Feb, [facility] [address], [place] [address]- 4626 Feb, [facility] [id number] [place] [address] 97816- 5430 Feb, [facility] [address] [address]- 2546 Feb, [facility] [id number] [place] [address] 85212- 0846 Feb, [facility] [id number] [place] [address] 67485- 0157 January, Adrenal mass 255.9 ; Hypothyroidism 244.9 ; Chronic sore throat 472.1 ; Atrial fibrillation 427.31 ; Hypertension 401.9 ; Generalized anxiety disorder 300.02 ; Chronic pain 338.29 and COPD (chronic obstructive pulmonary disease) 496 [facility] [id number] [place] [address] 26118- 6106 January, [facility] [address], [place] [address]- 3492 January, [facility] [id number] [place] [address] 80141- 6269 January, Sinusitis 473.9 [facility] [address], [place] [address]- 5558 January, [facility] [address], [place] [address]- 3586 January, [facility] [address], [place] [address]- 8950 Dec, [facility] [id number] [address]- 0716 Dec, [facility] [address], [place] [address]- 2546 Nov, [facility] [address], [place] [address]- 2951 Nov, [facility] [place] [facility] [address] [id number] [place] [address]- 6493 Nov, [facility] [place] [facility] [address] [id number] [place] [address]- 9753 Nov, [facility] [place] [facility] [address] [facility] [id number] [place] [address]- 8100 Oct, 2014 [facility] [place] [facility] [address] [facility] [id number] [place] [address]- 4201 Oct, 2014 [facility] [place] [facility] [address] [id number] [place] [address]- 8674 Oct, 2014 [facility] [place] [facility] [address] [facility] [id number] [place] [address]- 6598 Oct, 2014 [facility] [place] [facility] [address] [facility] [id number] [place] [address]- 5680 Oct, 2014 [facility] [place] [facility] [address] [facility] [id number] [place] [address]- 1295 Oct, 2014 [facility] [place] [facility] [address] [facility] [id number] [place] [address]- 4740 Oct, 2014 [facility] [place] [facility] [address] [facility] [id number] [place] [address]- 1602 Oct, 2014 [facility] [place] [facility] [address] [facility] [id number] [place] [address]- 2299 Oct, 2014 [facility] [place] [facility] [address] [facility] [id number] [place] [address]- 4801 Oct, 2014 [facility] [place] [facility] [address] [facility] [id number] [place] [address]- 8382 Oct, 2014 [facility] [place] [facility] [address] [facility] [id number] [place] [address]- 9451 Oct, 2014 [facility] [place] [facility] [address] [facility] [id number] [place] [address]- 9442 05 Fe2014 [facility] [id number] [address]- 0663 Oct, [facility] [address] 1211 Oct, [facility] [address] 2574 Oct, [facility] [address], [place] [address]- 8591 Oct, [facility] [address], [place] [address]- 6373 Oct, [facility] [address] [address]- 9571 Sep, [facility] [address], [place] [address]- 7767 Sep, [facility] [address], [place] [address]- 0196 May, IMMUNIZATIONS No Known Immunizations SOCIAL HISTORY Never Assessed REASON FOR VISIT Medication List update PLAN OF CARE VITAL SIGNS MEDICATIONS Unknown [...]
--- OUTSIDE RECORDS SUMMARY | 2018-06-29 08:56 | XMS REPORT ---
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 Name Role Phone OBINNA PRASAD Unavailable PROBLEMS Type Condition ICD9-CM Code ULZ24-EV Code Onset Dates Condition Status SNOMED Code Problem Rectal bleeding K62.5 Active 40567627 Problem Allergic rhinitis, unspecified allergic rhinitis trigger, unspecified rhinitis seasonality J30.9 Active 48820026 Problem Osteoporosis M81.0 Active 37945643 Problem Paroxysmal atrial fibrillation I48.0 Active 532987027 Problem Anxiety F41.9 Active 62879475 Problem Chronic sore throat J31.2 Active 610649106 Problem 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 Active 74371550 Problem Drug induced constipation K59.03 Active 389132247262558 Problem Primary insomnia F51.01 Active 0619355 Problem Chronic pain syndrome G89.4 Active 662700083 Problem T12 compression fracture S22.080A Active 086937628 Problem Other nonspecific abnormal finding of lung field R91.8 Resolved 698616000 Problem Irritable bowel syndrome without diarrhea K58.9 Active 59642928 Problem 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 Active 507110672 Problem Tobacco use Z72.0 Active 406183193 Problem Nocturnal hypoxia G47.34 Active 094043417 Problem Essential hypertension I10 Active 55209733 Problem Hypothyroidism, unspecified hypothyroidism type E03.9 Active 86331400 Problem 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 Active [id number] Problem Chronic obstructive pulmonary disease, unspecified COPD type J44.9 Active 08998821 Problem Other chronic pain G89.29 Active 95684657 ALLERGIES No Information ENCOUNTERS Encounter Location Date Diagnosis [facility] [address] [facility] [id number] [address] Apr, Hyperkalemia E87.5 [facility] [id number] [place] [address] 79989- 8488 Apr, [facility] [id number] [place] [address] 48374- 2418 Apr, Sore throat J02.9 ; Chronic sore throat J31.2 ; Otalgia, bilateral H92.03 ; Other chronic pain G89.29 ; Paroxysmal atrial fibrillation I48.0 ; Essential hypertension I10 ; Hypothyroidism, unspecified hypothyroidism type E03.9 ; Fatigue, unspecified type R53.83 ; 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 and Acute non-recurrent pansinusitis J01.40 [facility] [id number] [place] [address] 96145- 1833 Apr, Chronic pain syndrome G89.4 [facility] [id number] [place] [address] 78779- 0309 Apr, [facility] [id number] [place] [address] 66382- 4392 Mar, [facility] [id number] [place] [address] 44713- 2719 Mar, [facility] [id number] [place] [address] 37198- 6349 Mar, Hypothyroidism, unspecified hypothyroidism type E03.9 [facility] [id number] [place] [address] 38996- 6227 Mar, [facility] [id number] [place] [address] 50585- 1619 Mar, Chronic pain syndrome G89.4 [facility] [id number] [place] [address] 23928- 0491 Mar, [facility] [id number] [place] [address] 66503- 2439 Mar, Chronic pain syndrome G89.4 [facility] [id number] [place] [address] 37089- 9267 Mar, [facility] [address] [place] [address] 69625- 7880 Mar, Chronic pain syndrome G89.4 and Other chronic pain G89.29 [facility] [id number] [place] [address] 55351- 0764 Feb, Chronic obstructive pulmonary disease, unspecified COPD type J44.9 [facility] [id number] [place] [address] 92506- 0779 Feb, [facility] [id number] [place] [address] 27080- 7394 Feb, [facility] [id number] [place] [address] 86919- 1331 Feb, [facility] [id number] [place] [address] 22395- 6090 Feb, [facility] [id number] [place] [address] 63718- 2926 Feb, [facility] [id number] [place] [address] 81818- 7312 Feb, Other chronic pain G89.29 ; Rectal bleeding K62.5 and Chronic pain syndrome G89.4 [facility] [id number] [place] [address] 40120- 8622 15 Feb, 2018 [facility] [address] [address] 0337 Feb, [facility] [id number] [place] [address] 76861- 6104 05 Feb, 2018 Other chronic pain G89.29 ; Essential hypertension I10 ; Osteoporosis M81.0 ; Drug induced constipation K59.03 ; Chronic obstructive pulmonary disease, unspecified COPD type J44.9 ; Hypothyroidism, unspecified hypothyroidism type E03.9 ; 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 ; Right ear pain H92.01 and Sore throat J02.9 [facility] [address] [place] [address] 59031- 7140 January, [facility] [id number] [place] [address] 95040- 9065 January, Low back pain M54.5 ; Other chronic pain G89.29 ; Pain in thoracic spine M54.6 and Neck pain M54.2 [facility] [id number] [place] [address] 87831- 9316 Dec, Low back pain M54.5 ; Other chronic pain G89.29 ; Pain in thoracic spine M54.6 and Neck pain M54.2 [place] [address] 18007- 5732 Dec, 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 and Chronic obstructive pulmonary disease, unspecified COPD type J44.9 [place] [address] 96733- 2639 Dec, [facility] [address] 42472- 8713 Dec, Hypothyroidism, unspecified hypothyroidism type E03.9 [facility] [id number] [place] [address] 93960- 1131 Oct, Essential hypertension I10 [facility] [id number] [place] [address] 15674- 6143 Oct, [facility] [id number] [place] [address] 51245- 5386 Sep, [facility] [id number] [place] [address] 42375- 5376 Sep, 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 [facility] [address] 81917- 2706 Aug, Drug induced constipation K59.03 [facility] [id number] [place] [address] 94407- 5816 Aug, [facility] [address] 48092- 4902 Jul, Other chronic pain G89.29 [facility] [id number] [place] [address] 30898- 8254 Jul, [facility] [id number] [place] [address] 13932- 8321 Jul, Well woman exam (no gynecological exam) Z00.00 ; Encounter for immunization Z23 ; Tobacco use Z72.0 and 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 [facility] [id number] [place] [address] 49612- 9438 Jul, [facility] [id number] [place] [address] 98041- 5280 Jul, Drug induced constipation K59.03 [place] [id number] [place] [address] 66060- 4013 Jun, Chronic obstructive pulmonary disease, unspecified COPD type J44.9 ; Tobacco use Z72.0 ; Hypothyroidism, unspecified hypothyroidism type E03.9 ; Other chronic pain G89.29 ; Drug induced constipation K59.03 and COPD exacerbation J44.1 [facility] [id number] [place] [address] 52806- 2649 Jun, [facility] [id number] [place] [address] 22040- 7828 Jun, [facility] [id number] [place] [address] 42675- 5093 Jun, Osteoporosis M81.0 [facility] [address] [place] [address] 64372- 6295 Jun, [facility] [id number] [place] [address] 37405- 8267 Jun, Other chronic pain G89.29 [facility] [id number] [place] [address] 13467- 6948 Jun, Other chronic pain G89.29 [facility] [id number] [place] [address]- 7574 Jun, Hypothyroidism, unspecified hypothyroidism type E03.9 [facility] [id number] [place] [address] 17365- 4504 Jun, [facility] [id number] [place] [address] 60952- 7037 May, [facility] [id number] [place] [address] 36006- 0199 May, COPD exacerbation J44.1 ; Pain of left lower extremity M79.605 ; Burn T30.0 ; Fatigue, unspecified type R53.83 ; Anemia, unspecified type D64.9 ; Adverse effect of other opioids, initial encounter T40.2X5A and Drug induced constipation K59.03 [facility] [id number] [place] [address] 59325- 7168 May, [facility] [id number] [place] [address] 30572- 8774 May, Burn T30.0 [facility] [id number] [place] [address] 57987- 6245 18 May, 2017 Other chronic pain G89.29 and Burn T30.0 [facility] [id number] [place] [address] 94599- 6082 14 May, 2017 Other chronic pain G89.29 [facility] [id number] [place] [address] 35718- 3799 Apr, [facility] [id number] [place] [address] 87667- 9703 Apr, [facility] [id number] [place] [address] 26495- 7346 Apr, [facility] [id number] [place] [address] 13623- 8491 Apr, [facility] [id number] [place] [address] 08906- 0342 Apr, Other chronic pain G89.29 [place] [address] 74616- 4541 15 Apr, 2017 Fatigue, unspecified type R53.83 ; Hypothyroidism, unspecified hypothyroidism type E03.9 ; Other chronic pain G89.29 ; Essential hypertension I10 ; Persistent atrial fibrillation I48.1 ; Chronic obstructive pulmonary disease, unspecified COPD type J44.9 ; Nocturnal hypoxia G47.34 ; Irritable bowel syndrome without diarrhea K58.9 ; Hyponatremia E87.1 ; Osteoporosis M81.0 and Primary insomnia F51.01 [place] [address] 74246- 8746 Feb, [address] 83048- 1330 January, [address] 38524- 3934 Oct, Essential hypertension I10 [address] 11154- 3120 Sep, Shortness of breath R06.02 ; COPD with exacerbation J44.1 and Weakness R53.[address] 15126- 2315 Sep, Drug-induced constipation K59.03 and Allergic rhinitis, unspecified allergic rhinitis trigger, unspecified rhinitis seasonality J30.9 [place] [id number] [place] [address] 08240- 2845 Sep, [place] [address] 01279- 7569 Sep, [place] [address] 85043- 6387 Sep, [place] [address] 11923- 4758 Jul, [address] 76263- 6108 Jul, Other chronic pain G89.29 ; Hematuria R31.9 ; Screening for breast cancer Z12.39 ; Anxiety F41.9 ; Primary insomnia F51.01 ; Drug-induced constipation K59.03 and Encounter for immunization Z23 [place] [id number] [place] [address] 63807- 1266 Jul, 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 [place] [address] 81868- 6195 Jun, 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 and Hyponatremia E87.[address] 19066- 4602 Jun, 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 and Hyponatremia E87.1 [place] [address] 39914- 1306 May, Hyponatremia E87.1 [place] [address] 45173- 5567 May, Essential hypertension I10 ; Tobacco use Z72.0 ; Hyponatremia E87.1 ; Allergic rhinitis, unspecified allergic rhinitis trigger, unspecified rhinitis seasonality J30.9 and Osteoporosis M81.0 [place] [id number] [place] [address] 76999- 9078 Mar, [address] 83411- 2638 Mar, [place] [address] 46225- 6200 Mar, Hyponatremia E87.[address] 34308- 1758 Feb, Essential hypertension I10 ; Hypothyroidism, unspecified [...] Concern about skin disease without diagnosis Z71.1 [facility] [id number] [place] [address] 99134- 8712 Feb, [facility] [id number] [place] [address] 41851- 5583 Feb, Other nonspecific abnormal finding of lung field R91.8 [facility] [id number] [place] [address] 44231- 6091 Dec, [facility] [id number] [place] [address] 38165- 8441 Dec, [facility] [id number] [place] [address] 71998- 5911 Nov, [facility] [id number] [place] [address] 07898- 0379 Nov, [facility] [id number] [place] [address] 89368- 6178 Oct, [facility] [id number] [place] [address] 58987- 2088 Oct, [facility] [id number] [place] [address] 19573- 3777 Oct, [facility] [id number] [place] [address] 84968- 7799 16 Aug, 2015 Chronic obstructive pulmonary disease, unspecified COPD type J44.9 [facility] [id number] [place] [address] 82389- 8631 14 Aug, 2015 [facility] [id number] [place] [address] 20528- 9426 10 Aug, 2015 Rectal bleeding K62.5 and GERD (gastroesophageal reflux disease) K21.9 [facility] [id number] [address]- 9095 Jul, [facility] [id number] [place] [address] 10349- 6133 Jul, 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 [facility] [id number] [place] [address] 27943- 3938 Jun, [facility] [id number] [place] [address] 77572- 1463 05 Jun, 2015 [facility] [id number] [place] [address] 84831- 6987 23 May, 2014 Adrenal mass 255.9 and Abnormal dexamethasone suppression test 794.6 [facility] [id number] [place] [address] 15115- 0944 21 May, 2015 Adrenal mass 255.9 [facility] [id number] [place] [address] 55559- 9375 May, [facility] [id number] [place] [address] 57073- 8504 18 May, 2015 Pneumonia 486 and COPD (chronic obstructive pulmonary disease) 496 [facility] [id number] [place] [address] 44924- 7504 17 May, 2015 [facility] [address] [place] [address] 08948- 5884 14 May, 2015 [facility] [id number] [place] [address] 54450- 6377 11 May, 2014 [facility] [id number] [place] [address] 93568- 2545 10 May, 2014 [facility] [id number] [place] [address] 96004- 0951 09 May, 2014 [facility] [address] [place] [address] 38485- 4295 08 May, 2014 [facility] [id number] [place] [address] 17870- 1301 May, Adrenal mass 255.9 [facility] [address] [address]- 1280 Apr, Adrenal mass 255.9 ; Hypothyroidism 244.9 ; Chronic sore throat 472.1 ; Atrial fibrillation 427.31 ; Hypertension 401.9 ; Generalized anxiety disorder 300.02 ; Chronic pain 338.29 and COPD (chronic obstructive pulmonary disease) 496 [facility] [id number] [place] [address] 61277- 3718 Apr, [facility] [id number] [place] [address] 00237- 2073 Apr, [facility] [id number] [place] [address] 56671- 0330 Mar, [facility] [id number] [place] [address] 71892- 0984 Mar, Adrenal mass 255.9 [facility] [id number] [place] [address] 36520- 5927 Mar, [facility] [id number] [place] [address] 00567- 9807 Mar, Chronic sore throat 472.1 and Adrenal mass 255.9 [facility] [address] [place] [address] 53821- 9687 Mar, [facility] [address] [place] [address] 61404- 0825 Feb, [facility] [id number] [place] [address] 00668- 7382 Feb, [facility] [id number] [place] [address] 97603- 9762 Feb, [facility] [address] [place] [address] 99821- 5870 Feb, [facility] [address] [place] [address] 15278- 9210 Feb, [facility] [address] [address]- 3206 Feb, [facility] [id number] [place] [address] 11950- 6207 Feb, [facility] [address] [address]- 2546 Feb, [facility] [id number] [place] [address] 42518- 5066 Feb, [facility] [id number] [place] [address] 99559- 4346 January, Adrenal mass 255.9 ; Hypothyroidism 244.9 ; Chronic sore throat 472.1 ; Atrial fibrillation 427.31 ; Hypertension 401.9 ; Generalized anxiety disorder 300.02 ; Chronic pain 338.29 and COPD (chronic obstructive pulmonary disease) 496 [facility] [id number] [place] [address] 08120- 6136 January, [facility] [address] [address]- 5997 January, [facility] [id number] [place] [address] 56768- 9163 January, Sinusitis 473.9 [facility] [address] [address]- 2262 January, [facility] [address] [address]- 9316 January, [facility] [address] [address]- 6477 Dec, [facility] [id number] [address]- 1096 Dec, [facility] [address] [address]- 2546 Nov, [facility] [address] [address]- 5570 Nov, [facility] [place] [facility] [address] [id number] [place] [address]- 8731 Nov, [facility] [place] [facility] [address] [id number] [place] [address]- 8969 Nov, [facility] [place] [facility] [address] [facility] [id number] [place] [address]- 9897 Oct, 2014 [facility] [place] [facility] [address] [facility] [id number] [place] [address]- 5085 Oct, 2014 [facility] [place] [facility] [address] [id number] [place] [address]- 6795 Oct, 2014 [facility] [place] [facility] [address] [facility] [id number] [place] [address]- 6813 Oct, 2014 [facility] [place] [facility] [address] [facility] [id number] [place] [address]- 6647 Oct, 2014 [facility] [place] [facility] [address] [facility] [id number] [place] [address]- 2883 Oct, 2014 [facility] [place] [facility] [address] [facility] [id number] [place] [address]- 5926 Oct, 2014 [facility] [place] [facility] [address] [facility] [id number] [place] [address]- 1600 Oct, 2014 [facility] [place] [facility] [address] [facility] [id number] [place] [address]- 6752 Oct, 2014 [facility] [place] [facility] [address] [facility] [id number] [place] [address]- 4615 Oct, 2014 [facility] [place] [facility] [address] [facility] [id number] [place] [address]- 1065 Oct, 2014 [facility] [place] [facility] [address] [facility] [id number] [place] [address]- 3188 Oct, 2014 [facility] [place] [facility] [address] [facility] [id number] [place] [address]- 9021 05 Fe2014 [facility] [id number] [address]- 7421 Oct, [facility] [address] [address]- 1392 Oct, [facility] [address] 0534 Oct, [facility] [address] [address]- 2142 Oct, [facility] [address] [address]- 1206 Oct, [facility] [address] [address]- 7183 Sep, [facility] [address] [address]- 2337 Sep, [facility] [address] [address]- 2731 May, IMMUNIZATIONS No Known Immunizations SOCIAL HISTORY Never Assessed REASON FOR VISIT Prior Authorization- Methocarbamol PLAN OF CARE VITAL SIGNS MEDICATIONS Unknown [...]
--- OUTSIDE RECORDS SUMMARY | 2018-06-29 08:56 | XMS REPORT ---
Author Author SHANICE OBINNA [facility] Address [address] [place] [address] Care Team Providers Care Honing Machine Set Up Operator Name Role Phone OBINNA PRASAD Unavailable PROBLEMS Type Condition ICD9-CM Code WTS42-PP Code Onset Dates Condition Status SNOMED Code Problem Rectal bleeding K62.5 Active 47846537 Problem Allergic rhinitis, unspecified allergic rhinitis trigger, unspecified rhinitis seasonality J30.9 Active 42038488 Problem Osteoporosis M81.0 Active 34285191 Problem Paroxysmal atrial fibrillation I48.0 Active 903919590 Problem Anxiety F41.9 Active 26696254 Problem Chronic sore throat J31.2 Active 507694940 Problem 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 Active 18810200 Problem Drug induced constipation K59.03 Active 957528072868650 Problem Primary insomnia F51.01 Active 8753065 Problem Chronic pain syndrome G89.4 Active 613237008 Problem T12 compression fracture S22.080A Active 069205989 Problem Other nonspecific abnormal finding of lung field R91.8 Resolved 909263756 Problem Irritable bowel syndrome without diarrhea K58.9 Active 80938516 Problem 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 Active 448596837 Problem Tobacco use Z72.0 Active 649523955 Problem Nocturnal hypoxia G47.34 Active 597944440 Problem Essential hypertension I10 Active 13780508 Problem Hypothyroidism, unspecified hypothyroidism type E03.9 Active 09721990 Problem 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 Active 2836912545225998 Problem Chronic obstructive pulmonary disease, unspecified COPD type J44.9 Active 12569357 Problem Other chronic pain G89.29 Active 01823454 ALLERGIES No Information ENCOUNTERS Encounter Location Date Diagnosis [facility] [address] [facility] [id number] [address] Apr, Hyperkalemia E87.5 [facility] [id number] [place] [address] 23878- 6287 Apr, [facility] [id number] [place] [address] 50678- 1922 Apr, Sore throat J02.9 ; Chronic sore throat J31.2 ; Otalgia, bilateral H92.03 ; Other chronic pain G89.29 ; Paroxysmal atrial fibrillation I48.0 ; Essential hypertension I10 ; Hypothyroidism, unspecified hypothyroidism type E03.9 ; Fatigue, unspecified type R53.83 ; 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 and Acute non-recurrent pansinusitis J01.40 [facility] [id number] [place] [address] 61742- 0945 Apr, Chronic pain syndrome G89.4 [facility] [id number] [place] [address] 11131- 9973 Apr, [facility] [id number] [place] [address] 76021- 6609 Mar, [facility] [id number] [place] [address] 60569- 5859 Mar, [facility] [id number] [place] [address] 96744- 4614 Mar, Hypothyroidism, unspecified hypothyroidism type E03.9 [facility] [id number] [place] [address] 21754- 0864 Mar, [facility] [id number] [place] [address] 38701- 5688 Mar, Chronic pain syndrome G89.4 [facility] [id number] [place] [address] 58720- 4205 Mar, [facility] [id number] [place] [address] 16582- 0493 Mar, Chronic pain syndrome G89.4 [facility] [id number] [place] [address] 25535- 1781 Mar, [facility] [address] [place] [address] 52601- 1287 Mar, Chronic pain syndrome G89.4 and Other chronic pain G89.29 [facility] [id number] [place] [address] 40925- 6197 Feb, Chronic obstructive pulmonary disease, unspecified COPD type J44.9 [facility] [id number] [place] [address] 83446- 7416 Feb, [facility] [id number] [place] [address] 86614- 5115 Feb, [facility] [id number] [place] [address] 04635- 9724 Feb, [facility] [id number] [place] [address] 42747- 0821 Feb, [facility] [id number] [place] [address] 44057- 8727 Feb, [facility] [id number] [place] [address] 18192- 0639 Feb, Other chronic pain G89.29 ; Rectal bleeding K62.5 and Chronic pain syndrome G89.4 [facility] [id number] [place] [address] 74033- 5550 15 Feb, 2018 [facility] [address] [address] 6429 Feb, [facility] [id number] [place] [address] 58808- 2611 05 Feb, 2018 Other chronic pain G89.29 ; Essential hypertension I10 ; Osteoporosis M81.0 ; Drug induced constipation K59.03 ; Chronic obstructive pulmonary disease, unspecified COPD type J44.9 ; Hypothyroidism, unspecified hypothyroidism type E03.9 ; 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 ; Right ear pain H92.01 and Sore throat J02.9 [facility] [address] [place] [address] 61204- 4248 January, [facility] [id number] [place] [address] 15229- 8645 January, Low back pain M54.5 ; Other chronic pain G89.29 ; Pain in thoracic spine M54.6 and Neck pain M54.2 [facility] [id number] [place] [address] 76251- 1394 Dec, Low back pain M54.5 ; Other chronic pain G89.29 ; Pain in thoracic spine M54.6 and Neck pain M54.2 [place] [address] 93910- 4333 Dec, 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 and Chronic obstructive pulmonary disease, unspecified COPD type J44.9 [place] [address] 92861- 8184 Dec, [facility] [address] 77221- 0129 Dec, Hypothyroidism, unspecified hypothyroidism type E03.9 [facility] [id number] [place] [address] 27663- 2383 Oct, Essential hypertension I10 [facility] [id number] [place] [address] 89372- 4245 Oct, [facility] [id number] [place] [address] 51336- 4461 Sep, [facility] [id number] [place] [address] 72865- 8560 Sep, 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 [facility] [address] 89186- 6110 Aug, Drug induced constipation K59.03 [facility] [id number] [place] [address] 74998- 0082 Aug, [facility] [address] 54144- 0122 Jul, Other chronic pain G89.29 [facility] [id number] [place] [address] 84588- 5960 Jul, [facility] [id number] [place] [address] 30057- 1127 Jul, Well woman exam (no gynecological exam) Z00.00 ; Encounter for immunization Z23 ; Tobacco use Z72.0 and 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 [facility] [id number] [place] [address] 72992- 2626 Jul, [facility] [id number] [place] [address] 31919- 6824 Jul, Drug induced constipation K59.03 [place] [id number] [place] [address] 94736- 8814 Jun, Chronic obstructive pulmonary disease, unspecified COPD type J44.9 ; Tobacco use Z72.0 ; Hypothyroidism, unspecified hypothyroidism type E03.9 ; Other chronic pain G89.29 ; Drug induced constipation K59.03 and COPD exacerbation J44.1 [facility] [id number] [place] [address] 68980- 3675 Jun, [facility] [id number] [place] [address] 33817- 5350 Jun, [facility] [id number] [place] [address] 43217- 2739 Jun, Osteoporosis M81.0 [facility] [address] [place] [address] 47116- 7899 Jun, [facility] [id number] [place] [address] 64937- 8442 Jun, Other chronic pain G89.29 [facility] [id number] [place] [address] 85776- 2818 Jun, Other chronic pain G89.29 [facility] [address] [place] [address]- 4758 Jun, Hypothyroidism, unspecified hypothyroidism type E03.9 [facility] [id number] [place] [address] 81244- 6001 Jun, [facility] [id number] [place] [address] 81857- 5777 May, [facility] [id number] [place] [address] 46897- 6916 May, COPD exacerbation J44.1 ; Pain of left lower extremity M79.605 ; Burn T30.0 ; Fatigue, unspecified type R53.83 ; Anemia, unspecified type D64.9 ; Adverse effect of other opioids, initial encounter T40.2X5A and Drug induced constipation K59.03 [facility] [id number] [place] [address] 36456- 0989 May, [facility] [id number] [place] [address] 58034- 7300 May, Burn T30.0 [facility] [id number] [place] [address] 70717- 4274 18 May, 2017 Other chronic pain G89.29 and Burn T30.0 [facility] [id number] [place] [address] 84429- 2374 14 May, 2017 Other chronic pain G89.29 [facility] [id number] [place] [address] 65503- 6397 Apr, [facility] [id number] [place] [address] 61944- 1099 Apr, [facility] [id number] [place] [address] 14276- 9016 Apr, [facility] [id number] [place] [address] 23734- 9652 Apr, [facility] [id number] [place] [address] 90933- 6572 Apr, Other chronic pain G89.29 [place] [address] 96487- 5543 15 Apr, 2017 Fatigue, unspecified type R53.83 ; Hypothyroidism, unspecified hypothyroidism type E03.9 ; Other chronic pain G89.29 ; Essential hypertension I10 ; Persistent atrial fibrillation I48.1 ; Chronic obstructive pulmonary disease, unspecified COPD type J44.9 ; Nocturnal hypoxia G47.34 ; Irritable bowel syndrome without diarrhea K58.9 ; Hyponatremia E87.1 ; Osteoporosis M81.0 and Primary insomnia F51.01 [place] [address] 75139- 0279 Feb, [address] 07380- 7810 January, [address] 52392- 2271 Oct, Essential hypertension I10 [address] 56049- 7126 Sep, Shortness of breath R06.02 ; COPD with exacerbation J44.1 and Weakness R53.[address] 20005- 8169 Sep, Drug-induced constipation K59.03 and Allergic rhinitis, unspecified allergic rhinitis trigger, unspecified rhinitis seasonality J30.9 [place] [id number] [place] [address] 02663- 6177 Sep, [place] [address] 66407- 0077 Sep, [place] [address] 13317- 1138 Sep, [place] [address] 98424- 6751 Jul, [address] 98621- 9105 Jul, Other chronic pain G89.29 ; Hematuria R31.9 ; Screening for breast cancer Z12.39 ; Anxiety F41.9 ; Primary insomnia F51.01 ; Drug-induced constipation K59.03 and Encounter for immunization Z23 [place] [id number] [place] [address] 98778- 8156 Jul, 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 [place] [address] 34032- 3032 Jun, 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 and Hyponatremia E87.[address] 87960- 2819 Jun, 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 and Hyponatremia E87.1 [place] [address] 83619- 6475 May, Hyponatremia E87.1 [place] [address] 26522- 6732 May, Essential hypertension I10 ; Tobacco use Z72.0 ; Hyponatremia E87.1 ; Allergic rhinitis, unspecified allergic rhinitis trigger, unspecified rhinitis seasonality J30.9 and Osteoporosis M81.0 [place] [id number] [place] [address] 57956- 4399 Mar, [address] 01709- 7062 Mar, [place] [address] 40333- 6209 Mar, Hyponatremia E87.[address] 81696- 9839 Feb, Essential hypertension I10 ; Hypothyroidism, unspecified [...] Concern about skin disease without diagnosis Z71.1 [facility] [id number] [place] [address] 14338- 4334 Feb, [facility] [id number] [place] [address] 53787- 0823 Feb, Other nonspecific abnormal finding of lung field R91.8 [facility] [id number] [place] [address] 20669- 1665 Dec, [facility] [id number] [place] [address] 31400- 0990 Dec, [facility] [id number] [place] [address] 05044- 7510 Nov, [facility] [id number] [place] [address] 38764- 7882 Nov, [facility] [id number] [place] [address] 78112- 0097 Oct, [facility] [id number] [place] [address] 16513- 5692 Oct, [facility] [id number] [place] [address] 24745- 8165 Oct, [facility] [id number] [place] [address] 28782- 2864 16 Aug, 2015 Chronic obstructive pulmonary disease, unspecified COPD type J44.9 [facility] [id number] [place] [address] 85267- 5710 14 Aug, 2015 [facility] [id number] [place] [address] 39813- 6751 10 Aug, 2015 Rectal bleeding K62.5 and GERD (gastroesophageal reflux disease) K21.9 [facility] [address] [address]- 5701 Jul, [facility] [id number] [place] [address] 98272- 4668 Jul, 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 [facility] [id number] [place] [address] 90654- 9186 Jun, [facility] [id number] [place] [address] 05059- 4518 05 Jun, 2015 [facility] [id number] [place] [address] 29099- 5935 23 May, 2014 Adrenal mass 255.9 and Abnormal dexamethasone suppression test 794.6 [facility] [id number] [place] [address] 64785- 9406 21 May, 2015 Adrenal mass 255.9 [facility] [id number] [place] [address] 52296- 0083 May, [facility] [id number] [place] [address] 52697- 8120 18 May, 2015 Pneumonia 486 and COPD (chronic obstructive pulmonary disease) 496 [facility] [id number] [place] [address] 73457- 4686 17 May, 2015 [facility] [address] [place] [address] 88182- 1451 14 May, 2015 [facility] [id number] [place] [address] 76458- 5476 11 May, 2014 [facility] [id number] [place] [address] 45737- 2542 10 May, 2014 [facility] [id number] [place] [address] 36178- 6579 09 May, 2014 [facility] [address] [place] [address] 32912- 0334 08 May, 2014 [facility] [id number] [place] [address] 39403- 1595 May, Adrenal mass 255.9 [facility] [address], [place] [address]- 3655 Apr, Adrenal mass 255.9 ; Hypothyroidism 244.9 ; Chronic sore throat 472.1 ; Atrial fibrillation 427.31 ; Hypertension 401.9 ; Generalized anxiety disorder 300.02 ; Chronic pain 338.29 and COPD (chronic obstructive pulmonary disease) 496 [facility] [id number] [place] [address] 95347- 7893 Apr, [facility] [id number] [place] [address] 85366- 0243 Apr, [facility] [id number] [place] [address] 54442- 2565 Mar, [facility] [id number] [place] [address] 84917- 3823 Mar, Adrenal mass 255.9 [facility] [id number] [place] [address] 70295- 6475 Mar, [facility] [id number] [place] [address] 37440- 3997 Mar, Chronic sore throat 472.1 and Adrenal mass 255.9 [facility] [address] [place] [address] 85851- 3210 Mar, [facility] [address] [place] [address] 58747- 5681 Feb, [facility] [id number] [place] [address] 80192- 1999 Feb, [facility] [id number] [place] [address] 10848- 3714 Feb, [facility] [address] [place] [address] 54674- 2545 Feb, [facility] [address] [place] [address] 55296- 5603 Feb, [facility] [address] [address]- 7026 Feb, [facility] [id number] [place] [address] 41773- 3491 Feb, [facility] [address] [place] [address]- 2546 Feb, [facility] [id number] [place] [address] 59664- 8646 Feb, [facility] [id number] [place] [address] 82543- 1937 January, Adrenal mass 255.9 ; Hypothyroidism 244.9 ; Chronic sore throat 472.1 ; Atrial fibrillation 427.31 ; Hypertension 401.9 ; Generalized anxiety disorder 300.02 ; Chronic pain 338.29 and COPD (chronic obstructive pulmonary disease) 496 [facility] [id number] [place] [address] 20909- 2306 January, [facility] [address] [address]- 2172 January, [facility] [id number] [place] [address] 24880- 8840 January, Sinusitis 473.9 [facility] [address] [address]- 5250 January, [facility] [address] [place] [address]- 1926 January, [facility] [address] [place] [address]- 7581 Dec, [facility] [id number] [address]- 0376 Dec, [facility] [address] [place] [address]- 2546 Nov, [facility] [address] [place] [address]- 1842 Nov, [facility] [place] [facility] [address] [id number] [place] [address]- 4366 Nov, [facility] [place] [facility] [address] [id number] [place] [address]- 9192 Nov, [facility] [place] [facility] [address] [facility] [id number] [place] [address]- 2762 Oct, 2014 [facility] [place] [facility] [address] [facility] [id number] [place] [address]- 4603 Oct, 2014 [facility] [place] [facility] [address] [id number] [place] [address]- 5785 Oct, 2014 [facility] [place] [facility] [address] [facility] [id number] [place] [address]- 9716 Oct, 2014 [facility] [place] [facility] [address] [facility] [id number] [place] [address]- 2465 Oct, 2014 [facility] [place] [facility] [address] [facility] [id number] [place] [address]- 4451 Oct, 2014 [facility] [place] [facility] [address] [facility] [id number] [place] [address]- 8810 Oct, 2014 [facility] [place] [facility] [address] [facility] [id number] [place] [address]- 6320 Oct, 2014 [facility] [place] [facility] [address] [facility] [id number] [place] [address]- 8947 Oct, 2014 [facility] [place] [facility] [address] [facility] [id number] [place] [address]- 9077 Oct, 2014 [facility] [place] [facility] [address] [facility] [id number] [place] [address]- 5759 Oct, 2014 [facility] [place] [facility] [address] [facility] [id number] [place] [address]- 3117 Oct, 2014 [facility] [place] [facility] [address] [facility] [id number] [place] [address]- 5225 05 Fe2014 [facility] [id number] 5180 Oct, [facility] [address] 8900 Oct, [facility] [address] [place] [address]- 5594 Oct, [facility] [address] [address]- 4154 Oct, [facility] [address] [address]- 0613 Oct, [facility] [address] 1700 Sep, [facility] [address] [place] [address]- 7550 Sep, [facility] [address] [place] [address]- 2789 May, IMMUNIZATIONS No Known Immunizations SOCIAL HISTORY Never Assessed REASON FOR VISIT Requests return call PLAN OF CARE VITAL SIGNS MEDICATIONS Medication Instructions Dosage Frequency Start Date End Date Duration Status Levothyroxine Sodium 75 mcg 1 TABLET ONCE A DAY ORALLY 30 DAYS 30 days Active RESULTS No Results PROCEDURES No [...]
[2018-06-29] MEDS ORDERED: FAMOTIDINE 20MG/2ML IV (PEPCID) ONE (08:57)
--- OUTSIDE RECORDS SUMMARY | 2018-06-29 08:57 | XMS REPORT ---
Author Author SHANICE OBINNA [facility] Address [address] [place] [address] Care Team Providers Care Blood Bank Technician Name Role Phone OBINNA PRASAD Unavailable PROBLEMS Type Condition ICD9-CM Code [id number] Code Onset Dates Condition Status SNOMED Code Problem Rectal bleeding K62.5 Active 93957278 Problem Allergic rhinitis, unspecified allergic rhinitis trigger, unspecified rhinitis seasonality J30.9 Active 96158094 Problem Osteoporosis M81.0 Active 94540404 Problem Paroxysmal atrial fibrillation I48.0 Active 809249158 Problem Anxiety F41.9 Active 57583437 Problem Chronic sore throat J31.2 Active 071003438 Problem 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 Active 25870580 Problem Drug induced constipation K59.03 Active 871810107048067 Problem Primary insomnia F51.01 Active 8198799 Problem Chronic pain syndrome G89.4 Active 610908638 Problem T12 compression fracture S22.080A Active 809120131 Problem Other nonspecific abnormal finding of lung field R91.8 Resolved 813586819 Problem Irritable bowel syndrome without diarrhea K58.9 Active 85351252 Problem 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 Active 365494059 Problem Tobacco use Z72.0 Active 608847164 Problem Nocturnal hypoxia G47.34 Active 302581823 Problem Essential hypertension I10 Active 24711374 Problem Hypothyroidism, unspecified hypothyroidism type E03.9 Active 21120222 Problem 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 Active 4166058335678643 Problem Chronic obstructive pulmonary disease, unspecified COPD type J44.9 Active 15900867 Problem Other chronic pain G89.29 Active 78043940 ALLERGIES No Information ENCOUNTERS Encounter Location Date Diagnosis [facility] [address] [facility] [id number] [address] Apr, Hyperkalemia E87.5 [facility] [id number] [place] [address] 97105- 3203 Apr, [facility] [id number] [place] [address] 29990- 7967 Apr, Sore throat J02.9 ; Chronic sore throat J31.2 ; Otalgia, bilateral H92.03 ; Other chronic pain G89.29 ; Paroxysmal atrial fibrillation I48.0 ; Essential hypertension I10 ; Hypothyroidism, unspecified hypothyroidism type E03.9 ; Fatigue, unspecified type R53.83 ; 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 and Acute non-recurrent pansinusitis J01.40 [facility] [id number] [place] [address] 97080- 6866 Apr, Chronic pain syndrome G89.4 [facility] [id number] [place] [address] 60772- 6785 Apr, [facility] [id number] [place] [address] 64162- 0269 Mar, [facility] [id number] [place] [address] 36900- 8391 Mar, [facility] [id number] [place] [address] 44936- 8748 Mar, Hypothyroidism, unspecified hypothyroidism type E03.9 [facility] [id number] [place] [address] 60881- 9637 Mar, [facility] [id number] [place] [address] 21450- 4372 Mar, Chronic pain syndrome G89.4 [facility] [id number] [place] [address] 18776- 8429 Mar, [facility] [id number] [place] [address] 45793- 8196 Mar, Chronic pain syndrome G89.4 [facility] [id number] [place] [address] 04904- 6054 Mar, [facility] [id number] [place] [address] 42288- 0568 Mar, Chronic pain syndrome G89.4 and Other chronic pain G89.29 [facility] [id number] [place] [address] 67413- 6482 Feb, Chronic obstructive pulmonary disease, unspecified COPD type J44.9 [facility] [id number] [place] [address] 28457- 7913 Feb, [facility] [id number] [place] [address] 50517- 4789 Feb, [facility] [id number] [place] [address] 46150- 9508 Feb, [facility] [id number] [place] [address] 15609- 6807 Feb, [facility] [id number] [place] [address] 63079- 7505 Feb, [facility] [id number] [place] [address] 73856- 7592 Feb, Other chronic pain G89.29 ; Rectal bleeding K62.5 and Chronic pain syndrome G89.4 [facility] [id number] [place] [address] 91756- 5848 15 Feb, 2018 [facility] [address] [address] 0553 Feb, 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 [id number] [place] [address] 27763- 3055 January, [facility] [id number] [place] [address] 78318- 2169 January, Low back pain M54.5 ; Other chronic pain G89.29 ; Pain in thoracic spine M54.6 and Neck pain M54.2 [facility] [id number] [place] [address] 37486- 4776 Dec, Low back pain M54.5 ; Other chronic pain G89.29 ; Pain in thoracic spine M54.6 and Neck pain M54.2 [place] [address] 35287- 7577 Dec, 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 and Chronic obstructive pulmonary disease, unspecified COPD type J44.9 [place] [address] 88793- 8239 Dec, [facility] [address] 77440- 3223 Dec, Hypothyroidism, unspecified hypothyroidism type E03.9 [facility] [id number] [place] [address] 10619- 2187 Oct, Essential hypertension I10 [facility] [id number] [place] [address] 55119- 0887 Oct, [facility] [id number] [place] [address] 50980- 2559 Sep, [facility] [id number] [place] [address] 53456- 0827 Sep, 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 [facility] [address] 20579- 2986 Aug, Drug induced constipation K59.03 [facility] [id number] [place] [address] 31091- 6814 Aug, [facility] [address] 76361- 8024 Jul, Other chronic pain G89.29 [facility] [id number] [place] [address] 60920- 1525 Jul, [facility] [id number] [place] [address] 59299- 0316 Jul, Well woman exam (no gynecological exam) Z00.00 ; Encounter for immunization Z23 ; Tobacco use Z72.0 and 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 [facility] [id number] [place] [address] 88536- 6559 Jul, [facility] [id number] [place] [address] 84170- 5061 Jul, Drug induced constipation K59.03 [place] [id number] [place] [address] 56815- 9387 Jun, Chronic obstructive pulmonary disease, unspecified COPD type J44.9 ; Tobacco use Z72.0 ; Hypothyroidism, unspecified hypothyroidism type E03.9 ; Other chronic pain G89.29 ; Drug induced constipation K59.03 and COPD exacerbation J44.1 [facility] [id number] [place] [address] 57041- 0601 Jun, [facility] [id number] [place] [address] 06961- 0185 Jun, [facility] [id number] [place] [address] 48271- 2510 Jun, Osteoporosis M81.0 [facility] [address] [place] [address] 45217- 4832 Jun, [facility] [id number] [place] [address] 01206- 3419 Jun, Other chronic pain G89.29 [facility] [id number] [place] [address] 15189- 6927 Jun, Other chronic pain G89.29 [facility] [address] [place] [address]- 9062 Jun, Hypothyroidism, unspecified hypothyroidism type E03.9 [facility] [id number] [place] [address] 38005- 5470 Jun, [facility] [id number] [place] [address] 29111- 8287 May, [facility] [id number] [place] [address] 25049- 5230 May, COPD exacerbation J44.1 ; Pain of left lower extremity M79.605 ; Burn T30.0 ; Fatigue, unspecified type R53.83 ; Anemia, unspecified type D64.9 ; Adverse effect of other opioids, initial encounter T40.2X5A and Drug induced constipation K59.03 [facility] [id number] [place] [address] 56245- 8850 May, [facility] [id number] [place] [address] 71042- 9852 May, Burn T30.0 [facility] [id number] [place] [address] 67457- 8383 18 May, 2017 Other chronic pain G89.29 and Burn T30.0 [facility] [id number] [place] [address] 94688- 3270 14 May, 2017 Other chronic pain G89.29 [facility] [id number] [place] [address] 24094- 9447 Apr, [facility] [id number] [place] [address] 20639- 7563 Apr, [facility] [id number] [place] [address] 92536- 3645 Apr, [facility] [id number] [place] [address] 39310- 9195 Apr, [facility] [id number] [place] [address] 14265- 5861 Apr, Other chronic pain G89.29 [place] [address] 78727- 3516 15 Apr, 2017 Fatigue, unspecified type R53.83 ; Hypothyroidism, unspecified hypothyroidism type E03.9 ; Other chronic pain G89.29 ; Essential hypertension I10 ; Persistent atrial fibrillation I48.1 ; Chronic obstructive pulmonary disease, unspecified COPD type J44.9 ; Nocturnal hypoxia G47.34 ; Irritable bowel syndrome without diarrhea K58.9 ; Hyponatremia E87.1 ; Osteoporosis M81.0 and Primary insomnia F51.01 [place] [address] 37337- 8873 Feb, [address] 03969- 8742 January, [address] 34392- 5509 Oct, Essential hypertension I10 [address] 18561- 3653 Sep, Shortness of breath R06.02 ; COPD with exacerbation J44.1 and Weakness R53.[address] 00151- 3436 Sep, Drug-induced constipation K59.03 and Allergic rhinitis, unspecified allergic rhinitis trigger, unspecified rhinitis seasonality J30.9 [place] [id number] [place] [address] 11790- 0846 Sep, [place] [address] 84599- 7763 Sep, [place] [address] 17485- 6882 Sep, [place] [address] 21666- 6354 Jul, [address] 92091- 2541 Jul, Other chronic pain G89.29 ; Hematuria R31.9 ; Screening for breast cancer Z12.39 ; Anxiety F41.9 ; Primary insomnia F51.01 ; Drug-induced constipation K59.03 and Encounter for immunization Z23 [place] [id number] [place] [address] 96754- 6544 Jul, 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 [place] [address] 75602- 1375 Jun, 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 and Hyponatremia E87.[address] 25381- 4491 Jun, 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 and Hyponatremia E87.1 [place] [address] 76695- 0580 May, Hyponatremia E87.1 [place] [address] 72116- 9518 May, Essential hypertension I10 ; Tobacco use Z72.0 ; Hyponatremia E87.1 ; Allergic rhinitis, unspecified allergic rhinitis trigger, unspecified rhinitis seasonality J30.9 and Osteoporosis M81.0 [place] [id number] [place] [address] 33152- 2352 Mar, [address] 88237- 8801 Mar, [place] [address] 13299- 0264 Mar, Hyponatremia E87.[address] 12514- 7998 Feb, Essential hypertension I10 ; Hypothyroidism, unspecified [...] Concern about skin disease without diagnosis Z71.1 [facility] [id number] [place] [address] 59463- 4127 Feb, [facility] [id number] [place] [address] 65152- 6551 Feb, Other nonspecific abnormal finding of lung field R91.8 [facility] [id number] [place] [address] 36059- 4628 Dec, [facility] [id number] [place] [address] 52077- 7287 Dec, [facility] [id number] [place] [address] 10764- 9249 Nov, [facility] [id number] [place] [address] 92267- 3151 Nov, [facility] [id number] [place] [address] 28175- 2035 Oct, [facility] [id number] [place] [address] 52600- 4663 Oct, [facility] [id number] [place] [address] 82114- 4479 Oct, [facility] [id number] [place] [address] 12170- 6700 16 Aug, 2015 Chronic obstructive pulmonary disease, unspecified COPD type J44.9 [facility] [id number] [place] [address] 27700- 6511 14 Aug, 2015 [facility] [id number] [place] [address] 36951- 8292 10 Aug, 2015 Rectal bleeding K62.5 and GERD (gastroesophageal reflux disease) K21.9 [facility] [id number] [address]- 5352 Jul, [facility] [id number] [place] [address] 09131- 2483 Jul, 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 [facility] [id number] [place] [address] 64969- 4112 Jun, [facility] [id number] [place] [address] 71780- 2331 05 Jun, 2015 [facility] [id number] [place] [address] 29156- 7968 23 May, 2014 Adrenal mass 255.9 and Abnormal dexamethasone suppression test 794.6 [facility] [id number] [place] [address] 37263- 4131 21 May, 2015 Adrenal mass 255.9 [facility] [id number] [place] [address] 24950- 1749 May, [facility] [id number] [place] [address] 44384- 0188 18 May, 2015 Pneumonia 486 and COPD (chronic obstructive pulmonary disease) 496 [facility] [id number] [place] [address] 55088- 3692 17 May, 2015 [facility] [address] [place] [address] 66543- 8036 14 May, 2015 [facility] [id number] [place] [address] 80336- 9928 11 May, 2014 [facility] [id number] [place] [address] 32651- 2544 10 May, 2014 [facility] [id number] [place] [address] 06200- 7485 09 May, 2014 [facility] [address] [place] [address] 76860- 4892 08 May, 2014 [facility] [id number] [place] [address] 74850- 1002 May, Adrenal mass 255.9 [facility] [address] [address]- 5625 Apr, Adrenal mass 255.9 ; Hypothyroidism 244.9 ; Chronic sore throat 472.1 ; Atrial fibrillation 427.31 ; Hypertension 401.9 ; Generalized anxiety disorder 300.02 ; Chronic pain 338.29 and COPD (chronic obstructive pulmonary disease) 496 [facility] [id number] [place] [address] 84921- 6321 Apr, [facility] [id number] [place] [address] 63023- 7074 Apr, [facility] [id number] [place] [address] 82930- 3739 Mar, [facility] [id number] [place] [address] 32913- 7984 Mar, Adrenal mass 255.9 [facility] [id number] [place] [address] 86160- 3077 Mar, [facility] [id number] [place] [address] 12408- 9792 Mar, Chronic sore throat 472.1 and Adrenal mass 255.9 [facility] [address] [place] [address] 83195- 2681 Mar, [facility] [id number] [place] [address] 41770- 1739 Feb, [facility] [id number] [place] [address] 14319- 6736 Feb, [facility] [id number] [place] [address] 93767- 2979 Feb, [facility] [address] [place] [address] 67311- 6632 Feb, [facility] [address] [place] [address] 50830- 0924 Feb, [facility] [address] [address]- 0026 Feb, [facility] [id number] [place] [address] 02213- 1723 Feb, [facility] [id number] [address]- 25[address] Feb, [facility] [id number] [place] [address] Feb, [facility] [id number] [place] [id number] January, Adrenal mass 255.9 ; Hypothyroidism 244.9 ; Chronic sore throat 472.1 ; Atrial fibrillation 427.31 ; Hypertension 401.9 ; Generalized anxiety disorder 300.02 ; Chronic pain 338.29 and COPD (chronic obstructive pulmonary disease) 496 [facility] [id number] [place] [address] January, [facility] [id number] [address] January, [facility] [id number] [place] [address] January, Sinusitis 473.9 [facility] [id number] [address] January, [facility] [id number] [address] January, [facility] [id number] [address] Dec, [facility] [id number] [address] Dec, [facility] [id number] [address] Nov, [facility] [id number] [address] Nov, [facility] [place] [facility] [address] [id number] [place] [address] Nov, [facility] [place] [facility] [address] [id number] [place] [address] Nov, [facility] [place] [facility] [address] [facility] [id number] [place] [address] Oct, 2014 [facility] [place] [facility] [address] [facility] [id number] [place] [address]- [address] Oct, 2014 [facility] [place] [facility] [address] [id number] [place] [address] Oct, 2014 [facility] [place] [facility] [address] [facility] [id number] [place] [address]- [address] Oct, 2014 [facility] [place] [facility] [address] [facility] [id number] [place] [address] Oct, 2014 [facility] [place] [facility] [address] [facility] [id number] [place] [address] Oct, 2014 [facility] [place] [facility] [address] [facility] [id number] [place] [address]- [address] Oct, 2014 [facility] [place] [facility] [address] [facility] [id number] [place] [address]- [address] Oct, 2014 [facility] [place] [facility] [address] [facility] [id number] [place] [address]- [address]10 Oct, 2014 [facility] [place] [facility] [address] [facility] [id number] [place] [address]- [address] Oct, 2014 [facility] [place] [facility] [address] [facility] [id number] [place] [address]- [address] Oct, 2014 [facility] [place] [facility] [address] [facility] [id number] [place] [address] Oct, 2014 [facility] [place] [facility] [address] [facility] [id number] [place] [address] 05 Fe2014 [facility] [address] [id number] [address] Oct, [facility] [address] [address] Oct, [facility] [id number] [address] 64[address] Oct, [facility] [id number] [address] Oct, [facility] [id number] [address] [address] Oct, [facility] [id number] [address] 5161 Sep, [facility] [id number] [address] 12[address] Sep, [facility] [id number] [address] 7[address] May, IMMUNIZATIONS No Known Immunizations SOCIAL HISTORY Never Assessed REASON FOR VISIT Requests return call PLAN OF CARE VITAL SIGNS MEDICATIONS Unknown [...]
--- OUTSIDE RECORDS SUMMARY | 2018-06-29 08:57 | XMS REPORT ---
Author Author FABIANA SCHUMACHER Organization [facility] Address [address] 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 Active 96748083 Problem Drug induced constipation K59.03 Active 803260969329519 Problem Primary insomnia F51.01 Active 4452754 Problem Chronic pain syndrome G89.4 Active 013811503 Problem T12 compression fracture S22.080A Active 042754454 Problem Other nonspecific abnormal finding of lung field R91.8 Resolved 092504493 Problem Irritable bowel syndrome without diarrhea K58.9 Active 09008821 Problem 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 Active 773639315 Problem Tobacco use Z72.0 Active 522329659 Problem Nocturnal hypoxia G47.34 Active 950375365 Problem Essential hypertension I10 Active 51088658 Problem Hypothyroidism, unspecified hypothyroidism type E03.9 Active 91765747 Problem 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 Active 1168293759342863 Problem Chronic obstructive pulmonary disease, unspecified COPD type J44.9 Active 37781837 Problem Other chronic pain G89.29 Active [id number] ALLERGIES No Information ENCOUNTERS Encounter Location Date Diagnosis [facility] [address] [facility] [id number] [address] Apr, Hyperkalemia E87.5 [facility] [address] [id number], [place] [address] Apr, [facility] [address], [place] [address] Apr, Sore throat J02.9 ; Chronic sore throat J31.2 ; Otalgia, bilateral H92.03 ; Other chronic pain G89.29 ; Paroxysmal atrial fibrillation I48.0 ; Essential hypertension I10 ; Hypothyroidism, unspecified hypothyroidism type E03.9 ; Fatigue, unspecified type R53.83 ; 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 and Acute non-recurrent pansinusitis J01.40 [facility] [address], [place] [address] Apr, Chronic pain syndrome G89.4 [facility] [address], [place] [address] Apr, [facility] [address] [id number], [place] [address] 3284 Mar, [facility] [address], [place] [address] 84[address] Mar, [facility] [address], [place] [address]- 7974 Mar, Hypothyroidism, unspecified hypothyroidism type E03.9 [facility] [address], [place] [address]- 1159 Mar, [facility] [address], [place] [address] 3227 Mar, Chronic pain syndrome G89.4 [facility] [address], [place] [address] 0[address] Mar, [facility] [address], [place] [address]- 0399 Mar, Chronic pain syndrome G89.4 [facility] [address], [place] [address] 3666 Mar, [facility] [address] [id number], [place] [address] 9711 Mar, Chronic pain syndrome G89.4 and Other chronic pain G89.29 [facility] [id number] [place] [address] 91180- 1235 Feb, Chronic obstructive pulmonary disease, unspecified COPD type J44.9 [facility] [address], [place] [address]- 2494 Feb, [facility] [id number] [place] [address] 36359- 7494 Feb, [facility] [id number] [place] [address] 28104- 3396 Feb, [facility] [id number] [place] [address] 60225- 8215 Feb, [facility] [id number] [place] [address] 90102- 3592 Feb, [facility] [id number] [place] [address] 77682- 2495 Feb, Other chronic pain G89.29 ; Rectal bleeding K62.5 and Chronic pain syndrome G89.4 [facility] [address] [place] [address] 80118- 0034 15 Feb, 2018 [facility] [address], [place] [address]- 6264 14 Feb, 2018 [facility] [address] [place] [address] 38994- 4572 05 Feb, 2018 Other chronic pain G89.29 ; Essential hypertension I10 ; Osteoporosis M81.0 ; Drug induced constipation K59.03 ; Chronic obstructive pulmonary disease, unspecified COPD type J44.9 ; Hypothyroidism, unspecified hypothyroidism type E03.9 ; 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 ; Right ear pain H92.01 and Sore throat J02.9 [facility] [address], [place] [address]- 6[address] January, [facility] [id number] [place] [address] 39955- 4430 January, Low back pain M54.5 ; Other chronic pain G89.29 ; Pain in thoracic spine M54.6 and Neck pain M54.2 [facility] [address] [address]- 9177 Dec, Low back pain M54.5 ; Other chronic pain G89.29 ; Pain in thoracic spine M54.6 and Neck pain M54.2 [place] [address] [address]- [address] Dec, 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 and Chronic obstructive pulmonary disease, unspecified COPD type J44.9 [place] [address] [address]- 6275 Dec, [place] [address] [address]- 3204 Dec, Hypothyroidism, unspecified hypothyroidism type E03.9 [facility] [address] 80871- 5468 Oct, Essential hypertension I10 [place] [id number] [place] [address] 90268- 5344 Oct, [facility] [id number] [place] [address] 14196- 0142 Sep, [facility] [address] 35059- 4679 Sep, 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 [place] [address] [address]- 1749 Aug, Drug induced constipation K59.03 [facility] [address] 66880- 1758 Aug, [facility] [address] 35180- 3709 Jul, Other chronic pain G89.29 [facility] [id number] [place] [address] 63316- 8724 Jul, [facility] [address] 77821- 7663 Jul, Well woman exam (no gynecological exam) Z00.00 ; Encounter for immunization Z23 ; Tobacco use Z72.0 and 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 [facility] [address] 37858- 4876 Jul, [facility] [address] 81785- 7142 Jul, Drug induced constipation K59.03 [place] [address] [address]- 4598 Jun, Chronic obstructive pulmonary disease, unspecified COPD type J44.9 ; Tobacco use Z72.0 ; Hypothyroidism, unspecified hypothyroidism type E03.9 ; Other chronic pain G89.29 ; Drug induced constipation K59.03 and COPD exacerbation J44.1 [facility] [address] 71154- 0651 Jun, [facility] [id number] [place] [address] 79610- 3480 Jun, [facility] [address] 15531- 6760 Jun, Osteoporosis M81.0 [facility] [id number] [place] [address] 21739- 5034 Jun, [facility] [address] 05607- 6171 Jun, Other chronic pain G89.29 [facility] [address] 14659- 5676 Jun, Other chronic pain G89.29 [facility] [address] [place] [address]- 3507 Jun, Hypothyroidism, unspecified hypothyroidism type E03.9 [facility] [id number] [place] [address] 78552- 3011 Jun, [facility] [id number] [place] [address] 30080- 0288 May, [facility] [id number] [place] [address] 41361- 4786 May, COPD exacerbation J44.1 ; Pain of left lower extremity M79.605 ; Burn T30.0 ; Fatigue, unspecified type R53.83 ; Anemia, unspecified type D64.9 ; Adverse effect of other opioids, initial encounter T40.2X5A and Drug induced constipation K59.03 [facility] [id number] [place] [address] 24231- 4883 May, [facility] [id number] [place] [address] 51167- 0490 May, Burn T30.0 [facility] [id number] [place] [address] 47685- 6863 18 May, 2017 Other chronic pain G89.29 and Burn T30.0 [facility] [id number] [place] [address] 60932- 5352 14 May, 2017 Other chronic pain G89.29 [facility] [id number] [place] [address] 81764- 1757 Apr, [facility] [id number] [place] [address] 97726- 1828 Apr, [facility] [id number] [place] [address] 73019- 7412 Apr, [facility] [id number] [place] [address] 22497- 3685 Apr, [facility] [id number] [place] [address] 84485- 4533 Apr, Other chronic pain G89.29 [place] [address] 66676- 8767 15 Apr, 2017 Fatigue, unspecified type R53.83 ; Hypothyroidism, unspecified hypothyroidism type E03.9 ; Other chronic pain G89.29 ; Essential hypertension I10 ; Persistent atrial fibrillation I48.1 ; Chronic obstructive pulmonary disease, unspecified COPD type J44.9 ; Nocturnal hypoxia G47.34 ; Irritable bowel syndrome without diarrhea K58.9 ; Hyponatremia E87.1 ; Osteoporosis M81.0 and Primary insomnia F51.01 [place] [address] 94376- 7169 Feb, [address] [address]61- 0997 January, [address] 32646- 9625 Oct, Essential hypertension I10 [address] 47258- 4453 Sep, Shortness of breath R06.02 ; COPD with exacerbation J44.1 and Weakness R53.[address] 89215- 4783 Sep, Drug-induced constipation K59.03 and Allergic rhinitis, unspecified allergic rhinitis trigger, unspecified rhinitis seasonality J30.[address] 89656- 2238 Sep, [place] [address] 64365- 3572 Sep, [address] 22181- 0956 Sep, [address] 74475- 6465 Jul, [address] [address]45- 6939 Jul, Other chronic pain G89.29 ; Hematuria R31.9 ; Screening for breast cancer Z12.39 ; Anxiety F41.9 ; Primary insomnia F51.01 ; Drug-induced constipation K59.03 and Encounter for immunization Z23 [address] 88635- 4785 Jul, 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 36105- 6880 Jun, 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 and Hyponatremia E87.[address] 50696- 4640 Jun, 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 and Hyponatremia E87.[address] 02912- 0023 May, Hyponatremia E87.[address] 09676- 3662 May, Essential hypertension I10 ; Tobacco use Z72.0 ; Hyponatremia E87.1 ; Allergic rhinitis, unspecified allergic rhinitis trigger, unspecified rhinitis seasonality J30.9 and Osteoporosis M81.[address] 68893- 7455 Mar, [address] 19142- 8135 Mar, [address] 54633- 9445 Mar, Hyponatremia E87.[address] 98067- 5383 Feb, Essential hypertension I10 ; Hypothyroidism, unspecified [...] Concern about skin disease without diagnosis Z71.1 [facility] [id number] [place] [address] 47057- 6668 Feb, [facility] [address] 15548- 0716 Feb, Other nonspecific abnormal finding of lung field R91.8 [facility] [address] 87736- 9420 Dec, [facility] [address] 47781- 9866 Dec, [facility] [address] 23139- 1291 Nov, [facility] [address] 04981- 7299 Nov, [facility] [id number] [place] [address] 70554- 7221 Oct, [facility] [id number] [place] [address] 90116- 4865 Oct, [facility] [id number] [place] [address] 35632- 6091 Oct, [facility] [id number] [place] [address] 85374- 6427 Aug, Chronic obstructive pulmonary disease, unspecified COPD type J44.9 [facility] [address] 29459- 4105 14 Aug, 2015 [facility] [id number] [place] [address] 88083- 3746 10 Aug, 2015 Rectal bleeding K62.5 and GERD (gastroesophageal reflux disease) K21.9 [facility] [address] [place] [address]- 9232 Jul, [facility] [address] 18531- 2623 Jul, 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 [facility] [address] 88508- 0828 Jun, [facility] [address] 27427- 5576 Jun, [facility] [address] 02943- 1211 23 May, 2015 Adrenal mass 255.9 and Abnormal dexamethasone suppression test 794.6 [facility] [address] 03149- 8591 21 May, 2015 Adrenal mass 255.9 [facility] [address] 64970- 6086 May, [facility] [address] 30095- 8274 18 May, 2015 Pneumonia 486 and COPD (chronic obstructive pulmonary disease) 496 [facility] [address] 47001- 9713 17 May, 2015 [facility] [id number] [place] [address] 23627- 1071 14 May, 2015 [facility] [address] 17778- 0310 11 May, 2014 [facility] [id number] [place] [address] 99266- 1296 10 May, 2014 [facility] [address] 30023- 0712 09 May, 2014 [facility] [id number] [place] [address] 67965- 0353 08 May, 2014 [facility] [address] 94118- 0212 May, Adrenal mass 255.9 [facility] [address], [place] [address]- 6004 Apr, Adrenal mass 255.9 ; Hypothyroidism 244.9 ; Chronic sore throat 472.1 ; Atrial fibrillation 427.31 ; Hypertension 401.9 ; Generalized anxiety disorder 300.02 ; Chronic pain 338.29 and COPD (chronic obstructive pulmonary disease) 496 [facility] [id number] [place] [address] 11254- 5530 Apr, [facility] [id number] [place] [address] 26522- 8684 Apr, [facility] [address] 81506- 1199 Mar, [facility] [id number] [place] [address] 73012- 9136 Mar, Adrenal mass 255.9 [facility] [id number] [place] [address] 25738- 9972 Mar, [facility] [id number] [place] [address] 80881- 5943 Mar, Chronic sore throat 472.1 and Adrenal mass 255.9 [facility] [id number] [place] [address] 96908- 0686 Mar, [facility] [id number] [place] [address] 19813- 1573 Feb, [facility] [id number] [place] [address] 51866- 6489 Feb, [facility] [id number] [place] [address] 58955- 8448 Feb, [facility] [id number] [place] [address] 23725- 7819 Feb, [facility] [id number] [place] [address] 09931- 5023 Feb, [facility] [address], [place] [address]- 8818 Feb, [facility] [address], [place] [address]- 5377 Feb, [facility] [address], [place] [address]- 0429 Feb, [facility] [id number] [place] [address] 29799- 2783 Feb, [facility] [address], [place] [address]- 8914 January, Adrenal mass 255.9 ; Hypothyroidism 244.9 ; Chronic sore throat 472.1 ; Atrial fibrillation 427.31 ; Hypertension 401.9 ; Generalized anxiety disorder 300.02 ; Chronic pain 338.29 and COPD (chronic obstructive pulmonary disease) 496 [facility] [address], [place] [address]- 5178 January, [facility] [address], [place] [address]- 9209 January, [facility] [id number] [place] [address] 794735- 0634 January, Sinusitis 473.9 [facility] [address], [place] [address]- 2875 January, [facility] [address], [place] [address]- 1086 January, [facility] [address], [place] [address]- 6117 Dec, [facility] [id number], [place] [address]- 1047 Dec, [facility] [address], [place] [address]- 9806 Nov, [facility] [address], [place] [address]- 3731 Nov, [facility] [place] [facility] [address] [id number] [place] [address]- 8118 Nov, [facility] [place] [facility] [address] [facility] [id number] [place] [address]- 1436 Nov, 2014 [facility] [place] [facility] [address] [facility] [id number] [place] [address]- 3546 Oct, 2014 [facility] [place] [facility] [address] [facility] [id number] [place] [address]- 3375 Oct, 2014 [facility] [place] [facility] [address] [facility] [id number] [place] [address]- 9091 Oct, 2014 [facility] [place] [facility] [address] [facility] [id number] [place] [address]- 3566 Oct, 2014 [facility] [place] [facility] [address] [facility] [id number] [place] [address]- 4026 Oct, 2014 [facility] [place] [facility] [address] [facility] [id number] [place] [address]- 6724 Oct, 2014 [facility] [place] [facility] [address] [facility] [id number] [place] [address]- 0964 Oct, 2014 [facility] [place] [facility] [address] [facility] [id number] [place] [address]- 6008 Oct, 2014 [facility] [place] [facility] [address] [facility] [id number] [place] [address]- 1064 Oct, 2014 [facility] [place] [facility] [address] [facility] [id number] [place] [address]- 7080 Oct, 2014 [facility] [place] [facility] [address] [facility] [id number] [place] [address]- 5106 Oct, 2014 [facility] [place] [facility] [address] [facility] [id number] [place] [address]- 2010 Oct, 2014 [facility] [place] [facility] [address] [facility] [id number] [place] [address]- 2806 Oct, 2014 [facility] [place] [facility] [id number], [place] [address]- 2546 Oct, [facility] [address], [place] [address]- 8256 Oct, [facility] [address], [place] [address]- 2546 Oct, [facility] [id number] [place] [address] 19956- 2546 Oct, [facility] [address], [place] [address]- 2546 Oct, [facility] [address], [place] [address] 2546 Sep, [facility] [address], [place] [address]- 2986 Sep, [facility] [address], [place] [address]- 4236 May, IMMUNIZATIONS No Known Immunizations SOCIAL HISTORY Never Assessed REASON FOR VISIT PA [employer] -- Approved. PLAN OF CARE VITAL SIGNS MEDICATIONS Medication Instructions Dosage Frequency Start Date End Date Duration Status Embeda 20-0.8 MG Orally Once a day 1 capsule 24h Mar, 28 days Active RESULTS No Results PROCEDURES [...]
--- OUTSIDE RECORDS SUMMARY | 2018-06-29 08:58 | XMS REPORT ---
Author Author FABIANA SCHUMACHER Organization [facility] Address [address] 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 Active 21889322 Problem Drug induced constipation K59.03 Active 209320826003850 Problem Primary insomnia F51.01 Active 9810777 Problem Chronic pain syndrome G89.4 Active 373078274 Problem T12 compression fracture S22.080A Active 196840158 Problem Other nonspecific abnormal finding of lung field R91.8 Resolved 464971447 Problem Irritable bowel syndrome without diarrhea K58.9 Active 33082174 Problem 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 Active 032052639 Problem Tobacco use Z72.0 Active 189173978 Problem Nocturnal hypoxia G47.34 Active 934284382 Problem Essential hypertension I10 Active 52105198 Problem Hypothyroidism, unspecified hypothyroidism type E03.9 Active 10580231 Problem 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 Active 4330856578525329 Problem Chronic obstructive pulmonary disease, unspecified COPD type J44.9 Active 14459234 Problem Other chronic pain G89.29 Active 18071981 ALLERGIES Substance Reaction Event Type Date Status Hydrocodone Bitartrate nausea Drug Allergy Mar, Active Coumadin Unknown Drug Allergy Mar, Active ENCOUNTERS Encounter Location Date Diagnosis [facility] [address] [facility] [id number] [address] Apr, Hyperkalemia E87.5 [facility] [id number] [place] [address] 39046- 3432 Apr, [facility] [id number] [place] [address] 35566- 2552 Apr, Sore throat J02.9 ; Chronic sore throat J31.2 ; Otalgia, bilateral H92.03 ; Other chronic pain G89.29 ; Paroxysmal atrial fibrillation I48.0 ; Essential hypertension I10 ; Hypothyroidism, unspecified hypothyroidism type E03.9 ; Fatigue, unspecified type R53.83 ; 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 and Acute non-recurrent pansinusitis J01.40 [facility] [id number] [place] [address] 84973- 8317 Apr, Chronic pain syndrome G89.4 [facility] [id number] [place] [address] 25538- 6792 Apr, [facility] [id number] [place] [address] 47541- 4779 Mar, [facility] [id number] [place] [address] 94135- 7028 Mar, [facility] [id number] [place] [address] 64409- 3262 Mar, Hypothyroidism, unspecified hypothyroidism type E03.9 [facility] [id number] [place] [address] 85493- 7584 Mar, [facility] [id number] [place] [address] 72166- 3600 Mar, Chronic pain syndrome G89.4 [facility] [id number] [place] [address] 29258- 5902 Mar, [facility] [id number] [place] [address] 95931- 4200 Mar, Chronic pain syndrome G89.4 [facility] [address] [place] [address]- 7522 Mar, [facility] [id number] [place] [address] 24743- 0621 Mar, Chronic pain syndrome G89.4 and Other chronic pain G89.29 [facility] [id number] [address] 3377 Feb, Chronic obstructive pulmonary disease, unspecified COPD type J44.9 [facility] [id number] [place] [address] 90629- 0015 Feb, [facility] [id number] [place] [address] 19073- 2670 Feb, [facility] [id number] [place] [address] 76814- 5811 Feb, [facility] [id number] [place] [address] 45214- 1286 Feb, [facility] [id number] [place] [address] 96868- 5640 Feb, [facility] [id number] [place] [address] 32809- 7325 Feb, Other chronic pain G89.29 ; Rectal bleeding K62.5 and Chronic pain syndrome G89.4 [facility] [address] [address] 1495 15 Feb, 2018 [facility] [id number] [place] [address] 55209- 4160 14 Feb, 2018 [facility] [id number] [place] [address] 16782- 8164 05 Feb, 2018 Other chronic pain G89.29 ; Essential hypertension I10 ; Osteoporosis M81.0 ; Drug induced constipation K59.03 ; Chronic obstructive pulmonary disease, unspecified COPD type J44.9 ; Hypothyroidism, unspecified hypothyroidism type E03.9 ; 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 ; Right ear pain H92.01 and Sore throat J02.9 [place] [address] 64032- 6742 January, [place] [address] 00526- 9640 January, Low back pain M54.5 ; Other chronic pain G89.29 ; Pain in thoracic spine M54.6 and Neck pain M54.2 [place] [address] 06717- 9888 Dec, Low back pain M54.5 ; Other chronic pain G89.29 ; Pain in thoracic spine M54.6 and Neck pain M54.2 [place] [address] 90170- 4807 Dec, 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 and Chronic obstructive pulmonary disease, unspecified COPD type J44.9 [place] [address] 25703- 8436 Dec, [place] [address] 43388- 4045 Dec, Hypothyroidism, unspecified hypothyroidism type E03.9 [place] [address] 90497- 5435 Oct, Essential hypertension I10 [place] [address] 55621- 6603 Oct, [place] [address] 66824- 4159 Sep, [place] [address] 56350- 7689 Sep, 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 [place] [address] 76777- 6919 Aug, Drug induced constipation K59.03 [place] [address] 60503- 4297 Aug, [facility] [address], [place] [address] 1174 Jul, Other chronic pain G89.29 [facility] [id number] [place] [address] 79412- 1719 Jul, [facility] [id number] [place] [address] 11221- 6258 Jul, Well woman exam (no gynecological exam) Z00.00 ; Encounter for immunization Z23 ; Tobacco use Z72.0 and 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 [place] [id number] [place] [address] 08595- 4343 Jul, [place] [id number] [place] [address] 20750- 1995 Jul, Drug induced constipation K59.03 [place] [id number] [place] [address] 97054- 5612 Jun, Chronic obstructive pulmonary disease, unspecified COPD type J44.9 ; Tobacco use Z72.0 ; Hypothyroidism, unspecified hypothyroidism type E03.9 ; Other chronic pain G89.29 ; Drug induced constipation K59.03 and COPD exacerbation J44.1 [facility] [id number] [place] [address] 67819- 6640 Jun, [place] [id number] [place] [address] 20702- 7377 Jun, [facility] [id number] [place] [address] 87436- 9806 Jun, Osteoporosis M81.0 [facility] [id number] [place] [address] 40911- 6346 Jun, [place] [id number] [place] [address] 12116- 4124 Jun, Other chronic pain G89.29 [facility] [id number] [place] [address] 00098- 0565 Jun, Other chronic pain G89.29 [facility] [id number] [place] [address] 44274- 4530 Jun, Hypothyroidism, unspecified hypothyroidism type E03.9 [facility] [id number] [place] [address] 73181- 1373 Jun, [facility] [id number] [place] [address] 61835- 7507 May, [facility] [id number] [place] [address] 55060- 5326 May, COPD exacerbation J44.1 ; Pain of left lower extremity M79.605 ; Burn T30.0 ; Fatigue, unspecified type R53.83 ; Anemia, unspecified type D64.9 ; Adverse effect of other opioids, initial encounter T40.2X5A and Drug induced constipation K59.03 [facility] [id number] [place] [address] 83147- 9690 May, [facility] [id number] [place] [address] 91038- 0159 May, Burn T30.0 [facility] [id number] [place] [address] 66332- 6174 18 May, 2017 Other chronic pain G89.29 and Burn T30.0 [facility] [id number] [place] [address] 70757- 0565 May, Other chronic pain G89.29 [facility] [id number] [place] [address] 78421- 8329 Apr, [facility] [id number] [place] [address] 13105- 6464 Apr, [facility] [id number] [place] [address] 13078- 0110 Apr, [facility] [id number] [place] [address] 60670- 6476 Apr, [place] [id number] [place] [address] 33889- 5234 16 Apr, 2017 Other chronic pain G89.29 [place] [address] 16764- 3316 15 Apr, 2017 Fatigue, unspecified type R53.83 ; Hypothyroidism, unspecified hypothyroidism type E03.9 ; Other chronic pain G89.29 ; Essential hypertension I10 ; Persistent atrial fibrillation I48.1 ; Chronic obstructive pulmonary disease, unspecified COPD type J44.9 ; Nocturnal hypoxia G47.34 ; Irritable bowel syndrome without diarrhea K58.9 ; Hyponatremia E87.1 ; Osteoporosis M81.0 and Primary insomnia F51.[address] 01661- 3620 Feb, [address] 56132- 0214 January, [address] 49868- 7872 Oct, Essential hypertension I10 [address] 48727- 0583 Sep, Shortness of breath R06.02 ; COPD with exacerbation J44.1 and Weakness R53.[address] 81634- 1272 Sep, Drug-induced constipation K59.03 and Allergic rhinitis, unspecified allergic rhinitis trigger, unspecified rhinitis seasonality J30.9 [place] [id number] [place] [address] 26081- 9356 Sep, [address] 66383- 7501 Sep, [place] [address] 60082- 5775 Sep, [address] 36226- 0106 Jul, [place] [id number] [place] [address] 58166- 5952 17 Jul, 2016 Other chronic pain G89.29 ; Hematuria R31.9 ; Screening for breast cancer Z12.39 ; Anxiety F41.9 ; Primary insomnia F51.01 ; Drug-induced constipation K59.03 and Encounter for immunization Z23 [address] 47032- 4603 Jul, 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 [place] [address] 41935- 0604 Jun, 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 and Hyponatremia E87.[address] 29078- 2046 Jun, 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 and Hyponatremia E87.1 [place] [address] 97957- 5406 May, Hyponatremia E87.1 [place] [address] 69479- 7003 May, Essential hypertension I10 ; Tobacco use Z72.0 ; Hyponatremia E87.1 ; Allergic rhinitis, unspecified allergic rhinitis trigger, unspecified rhinitis seasonality J30.9 and Osteoporosis M81.0 [place] [id number] [place] [address] 04881- 3633 Mar, [place] [address] 72051- 9420 Mar, [place] [address] 57296- 4280 Mar, Hyponatremia E87.1 [place] [id number] [place] [address] 96727- 9579 Feb, Essential hypertension I10 ; Hypothyroidism, unspecified [...] Concern about skin disease without diagnosis Z71.1 [place] [id number] [place] [address] 75023- 6947 23 Feb, 2016 [place] [id number] [place] [address] 20381- 6026 Feb, Other nonspecific abnormal finding of lung field R91.8 [place] [address] 45803- 2676 Dec, [place] [id number] [place] [address] 78576- 9607 Dec, [place] [id number] [place] [address] 14242- 1055 Nov, [place] [id number] [place] [address] 32132- 9222 Nov, [place] [id number] [place] [address] 81659- 9094 Oct, [place] [id number] [place] [address] 15256- 3119 Oct, [place] [id number] [place] [address] 77986- 9662 Oct, [place] [id number] [place] [address] 61006- 7752 16 Aug, 2015 Chronic obstructive pulmonary disease, unspecified COPD type J44.9 [facility] [id number] [place] [address] 39604- 2644 14 Aug, 2015 [place] [id number] [place] [address] 47818- 5153 10 Aug, 2015 Rectal bleeding K62.5 and GERD (gastroesophageal reflux disease) K21.9 [facility] [id number] [place] [address] 90594- 9779 Jul, [facility] [id number] [place] [address] 09510- 2887 Jul, 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 [facility] [address] 78362- 7001 Jun, [facility] [address] 64972- 0638 Jun, [facility] [address] 13874- 5996 23 May, 2015 Adrenal mass 255.9 and Abnormal dexamethasone suppression test 794.6 [facility] [address] 29307- 3036 May, Adrenal mass 255.9 [facility] [address] 23169- 1744 May, [facility] [id number] [place] [address] 93588- 0787 18 May, 2015 Pneumonia 486 and COPD (chronic obstructive pulmonary disease) 496 [facility] [id number] [place] [address] 93256- 6304 17 May, 2015 [facility] [id number] [place] [address] 40028- 4256 14 May, 2015 [facility] [id number] [place] [address] 49522- 5079 11 May, 2015 [facility] [address] 70478- 5371 10 May, 2015 [facility] [id number] [place] [address] 53761- 5186 09 May, 2015 [facility] [id number] [place] [address] 79041- 8567 May, [facility] [address], [place] [address]- 8941 May, Adrenal mass 255.9 [facility] [id number] [address]- 6380 Apr, Adrenal mass 255.9 ; Hypothyroidism 244.9 ; Chronic sore throat 472.1 ; Atrial fibrillation 427.31 ; Hypertension 401.9 ; Generalized anxiety disorder 300.02 ; Chronic pain 338.29 and COPD (chronic obstructive pulmonary disease) 496 [facility] [address], [place] [address]- 5431 Apr, [facility] [id number] [place] [address] 75014- 5629 Apr, [facility] [id number] [place] [address] 75148- 4522 Mar, [facility] [id number] [place] [address] 57007- 8357 Mar, Adrenal mass 255.9 [facility] [address], [place] [address]- 2131 Mar, [facility] [id number] [place] [address] 23860- 6474 Mar, Chronic sore throat 472.1 and Adrenal mass 255.9 [facility] [address], [place] [address]- 1991 Mar, [facility] [address], [place] [address]- 0769 Feb, [facility] [address], [place] [address]- 6892 Feb, [facility] [address], [place] [address]- 7395 Feb, [facility] [address], [place] [address]- 3641 Feb, [facility] [address], [place] [address]- 3844 Feb, [facility] [id number] [place] [address] 17118- 2960 Feb, [facility] [id number] [place] [address] 05949- 3183 Feb, [facility] [id number] [place] [address] 11009- 8604 Feb, [facility] [id number] [place] [address] 015768- 4421 Feb, [facility] [id number] [place] [address] 397296- 7217 January, Adrenal mass 255.9 ; Hypothyroidism 244.9 ; Chronic sore throat 472.1 ; Atrial fibrillation 427.31 ; Hypertension 401.9 ; Generalized anxiety disorder 300.02 ; Chronic pain 338.29 and COPD (chronic obstructive pulmonary disease) 496 [facility] [address], [place] [address]- 8856 January, [facility] [id number] [place] [address] 07609- 3528 January, [facility] [id number] [address]- 9906 January, Sinusitis 473.9 [facility] [address], [place] [address]- 2761 January, [facility] [address], [place] [address]- 6871 January, [facility] [id number] [place] [address] 56755- 5392 Dec, [facility] [address], [place] [address]- 6630 Dec, [facility] [address], [place] [address]- 8743 Nov, [facility] [place] [facility] [address] [id number] [place] [address]- 0866 Nov, 2014 [facility] [place] [facility] [address] [id number] [place] [address]- 1096 Nov, 2014 [facility] [place] [facility] [address] [id number] [place] [address]- 2430 Nov, 2014 [facility] [place] [facility] [address] [id number] [place] [address]- 8354 Oct, 2014 [facility] [place] [facility] [address] [id number] [place] [address]- 4849 Oct, 2014 [facility] [place] [facility] [address] [id number] [place] [address]- 9500 Oct, 2014 [facility] [place] [facility] [address] [facility] [id number] [place] [address]- 2782 Oct, 2014 [facility] [place] [facility] [address] [id number] [place] [address]- 0941 Oct, 2014 [facility] [place] [facility] [address] [id number] [place] [address]- 3175 Oct, 2014 [facility] [place] [facility] [address] [facility] [id number] [place] [address]- 1932 Oct, 2014 [facility] [place] [facility] [address] [facility] [id number] [place] [address]- 8224 Oct, 2014 [facility] [place] [facility] [address] [id number] [place] [address]- 2549 Oct, 2014 [facility] [place] [facility] [address] [id number] [place] [address]- 3105 Oct, 2014 [facility] [place] [facility] [address] [id number] [place] [address]- 6466 Oct, 2014 [facility] [place] [facility] [address] [facility] [id number] [place] [address]- 5776 Oct, 2014 [facility] [place] [facility] [address] [id number] [address]- 8736 Oct, [facility] [address] 6252 Oct, [facility] [address] 6586 Oct, [facility] [address], [place] [address]- 5801 Oct, [facility] [address], [place] [address]- 4607 Oct, [facility] [id number] [place] [address] 34637- 6978 Oct, [facility] [address] 8086 Sep, [facility] [address] 6551 Sep, [facility] [address], [place] [address]- 0222 May, IMMUNIZATIONS No Known Immunizations SOCIAL HISTORY Never Assessed REASON FOR VISIT Pain Management f/tung Phan MA PLAN OF CARE Activity Details Follow Up [address] Vidal Reason:review chronic pain meds VITAL SIGNS Height 64 in 2018-03-13 Weight 135.5 lbs 2018-03-13 Temperature 98.5 degrees Fahrenheit 2018-03-13 Heart Rate 68 bpm 2018-03-13 Respiratory Rate 20 2018-03-13 BMI 23.26 kg/m2 2018-03-13 Blood pressure systolic 132 mmHg 2018-03-13 Blood pressure diastolic 78 mmHg 2018-03-13 MEDICATIONS Medication Instructions Dosage Frequency Start Date End Date Duration Status Loratadine 10 mg Orally Once a day 1 tablet 24h 30 days Active Methocarbamol 750 MG Orally 3 times a day 1 tablet 8h 18 Feb, 2018May 30 day(s) Active Fluticasone Propionate 50 MCG/ACT Nasally Once a day 1 spray in each nostril 24h Active Lisinopril 20 MG Orally Once a day 1 tablet 24h 90 days Active Mirtazapine 30 MG TAKE 1 TABLET BY MOUTH AT BEDTIME ONCE A DAY 90 Active Omeprazole 20 mg Orally Once a day 1 capsule 24h May, 30 days Active Embeda 20-0.8 MG Orally Once a day 1 capsule 24h Mar, Mar, 28 days Active Levothyroxine Sodium 75 MCG 1 TABLET ONCE A DAY ORALLY 30 DAYS Active Symbicort 160-4.5 mcg/act inhale 2 puffs by inhalation route 2 times per day in the morning and evening Nov, Active Ventolin HFA 108 (90 Base) MCG/ACT Inhalation every 4 hrs 2 puffs as needed 4h Active Furosemide 20 mg TAKE 1 TABLET BY MOUTH EVERY DAY NEEDED 30 Active Duloxetine HCl 60 mg Orally Twice a day 1 capsule 12h 30 Active Metoprolol Succinate 200 mg take 1 tablet (200 mg) by oral route once daily Sep, Active Incruse Ellipta 62.5 mcg/inh 1 puff Once a day Inhalation Active Cardizem CD 360 mg take 1 capsule (360 mg) by oral route once daily Sep, Active Lidoderm 5 % Externally Once a day 1 patch to skin remove after 12 hours 24h Feb, Aug, 30 days Active Oxygen Active Alendronate Sodium 70 MG Orally by oral route once weekly in the morning, at least 30 min before first food, beverage, or medication of day 1 tablet Feb, Active Albuterol Sulfate (2.5 MG/3ML) 0.083% USE 1 VIAL ( 3 ML ) EVERY 4 HOURS NEEDED Active RESULTS No Results PROCEDURES No Known [...]
--- OUTSIDE RECORDS SUMMARY | 2018-06-29 08:58 | XMS REPORT ---
Author Author FABIANA SCHUMACHER Organization [facility] Address [address] 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 Active 73018900 Problem Drug induced constipation K59.03 Active 015014392424202 Problem Primary insomnia F51.01 Active 8731649 Problem Chronic pain syndrome G89.4 Active 920711686 Problem T12 compression fracture S22.080A Active 892642088 Problem Other nonspecific abnormal finding of lung field R91.8 Resolved 573533461 Problem Irritable bowel syndrome without diarrhea K58.9 Active 98115125 Problem 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 Active 299271882 Problem Tobacco use Z72.0 Active 471029641 Problem Nocturnal hypoxia G47.34 Active 057681842 Problem Essential hypertension I10 Active 10935431 Problem Hypothyroidism, unspecified hypothyroidism type E03.9 Active 18923826 Problem 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 Active 4725722454481900 Problem Chronic obstructive pulmonary disease, unspecified COPD type J44.9 Active 43972262 Problem Other chronic pain G89.29 Active 18035304 ALLERGIES Substance Reaction Event Type Date Status Hydrocodone Bitartrate nausea Drug Allergy Feb, Active Coumadin Unknown Drug Allergy Feb, Active ENCOUNTERS Encounter Location Date Diagnosis [facility] [address] [facility] [id number] [address] Apr, Hyperkalemia E87.5 [facility] [id number] [place] [address] 81495- 0147 Apr, [facility] [id number] [place] [address] 40198- 1970 Apr, Sore throat J02.9 ; Chronic sore throat J31.2 ; Otalgia, bilateral H92.03 ; Other chronic pain G89.29 ; Paroxysmal atrial fibrillation I48.0 ; Essential hypertension I10 ; Hypothyroidism, unspecified hypothyroidism type E03.9 ; Fatigue, unspecified type R53.83 ; 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 and Acute non-recurrent pansinusitis J01.40 [facility] [id number] [place] [address] 41345- 8458 Apr, Chronic pain syndrome G89.4 [facility] [id number] [place] [address] 10961- 7640 Apr, [facility] [id number] [place] [address] 83457- 1588 Mar, [facility] [id number] [place] [address] 37090- 0797 Mar, [facility] [id number] [place] [address] 59821- 7684 Mar, Hypothyroidism, unspecified hypothyroidism type E03.9 [facility] [id number] [place] [address] 06080- 6363 Mar, [facility] [id number] [place] [address] 57823- 2382 Mar, Chronic pain syndrome G89.4 [facility] [id number] [place] [address] 22797- 9887 Mar, [facility] [id number] [place] [address] 15869- 4408 Mar, Chronic pain syndrome G89.4 [facility] [address] [place] [address]- 0047 Mar, [facility] [id number] [place] [address] 65391- 8048 Mar, Chronic pain syndrome G89.4 and Other chronic pain G89.29 [facility] [id number] [address]- 9178 Feb, Chronic obstructive pulmonary disease, unspecified COPD type J44.9 [facility] [id number] [place] [address] 81052- 5765 Feb, [facility] [id number] [place] [address] 64261- 3647 Feb, [facility] [id number] [place] [address] 23866- 4938 Feb, [facility] [id number] [place] [address] 38150- 3127 Feb, [facility] [id number] [place] [address] 78413- 0258 Feb, [facility] [id number] [place] [address] 59444- 1663 Feb, Other chronic pain G89.29 ; Rectal bleeding K62.5 and Chronic pain syndrome G89.4 [facility] [address] [address]- 2331 15 Feb, 2018 [facility] [id number] [place] [address] 70928- 1487 14 Feb, 2018 [facility] [id number] [place] [address] 45572- 5357 05 Feb, 2018 Other chronic pain G89.29 ; Essential hypertension I10 ; Osteoporosis M81.0 ; Drug induced constipation K59.03 ; Chronic obstructive pulmonary disease, unspecified COPD type J44.9 ; Hypothyroidism, unspecified hypothyroidism type E03.9 ; 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 ; Right ear pain H92.01 and Sore throat J02.9 [place] [address] 76246- 5369 January, [place] [address] 50780- 8250 January, Low back pain M54.5 ; Other chronic pain G89.29 ; Pain in thoracic spine M54.6 and Neck pain M54.2 [facility] [address] 47705- 6393 Dec, Low back pain M54.5 ; Other chronic pain G89.29 ; Pain in thoracic spine M54.6 and Neck pain M54.2 [facility] [facility] [address] 24173- 2765 Dec, 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 and Chronic obstructive pulmonary disease, unspecified COPD type J44.9 [facility] [address] 38797- 7808 Dec, [facility] [address] 85958- 1573 Dec, Hypothyroidism, unspecified hypothyroidism type E03.9 [facility] [address] 81102- 8908 Oct, Essential hypertension I10 [facility] [address] 26232- 5734 Oct, [facility] [address] 03083- 3148 Sep, [facility] [facility] [address] 74227- 0389 Sep, 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 [facility] [address] 57280- 9529 Aug, Drug induced constipation K59.03 [facility] [facility] [address] 66979- 4767 Aug, [facility] [address] [address] 7380 Jul, Other chronic pain G89.29 [facility] [id number] [place] [address] 36141- 0708 Jul, [facility] [id number] [place] [address] 97203- 6036 Jul, Well woman exam (no gynecological exam) Z00.00 ; Encounter for immunization Z23 ; Tobacco use Z72.0 and 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 [facility] [id number] [place] [address] 51358- 3216 Jul, [facility] [place] [id number] [place] [address] 12302- 6125 Jul, Drug induced constipation K59.03 [facility] [id number] [place] [address] 84468- 8944 Jun, Chronic obstructive pulmonary disease, unspecified COPD type J44.9 ; Tobacco use Z72.0 ; Hypothyroidism, unspecified hypothyroidism type E03.9 ; Other chronic pain G89.29 ; Drug induced constipation K59.03 and COPD exacerbation J44.1 [facility] [id number] [place] [address] 71785- 0627 Jun, [facility] [id number] [place] [address] 01703- 9464 Jun, [facility] [id number] [place] [address] 66542- 4175 Jun, Osteoporosis M81.0 [facility] [id number] [place] [address] 46063- 9878 Jun, [facility] [place] [id number] [place] [address] 47780- 1156 Jun, Other chronic pain G89.29 [facility] [id number] [place] [address] 70050- 3425 Jun, Other chronic pain G89.29 [facility] [id number] [place] [address] 35765- 4966 Jun, Hypothyroidism, unspecified hypothyroidism type E03.9 [facility] [id number] [place] [address] 78197- 7952 Jun, [facility] [id number] [place] [address] 95979- 6306 May, [facility] [id number] [place] [address] 88188- 1376 May, COPD exacerbation J44.1 ; Pain of left lower extremity M79.605 ; Burn T30.0 ; Fatigue, unspecified type R53.83 ; Anemia, unspecified type D64.9 ; Adverse effect of other opioids, initial encounter T40.2X5A and Drug induced constipation K59.03 [facility] [id number] [place] [address] 00670- 7594 May, [facility] [id number] [place] [address] 39225- 8391 May, Burn T30.0 [facility] [id number] [place] [address] 83208- 9126 18 May, 2017 Other chronic pain G89.29 and Burn T30.0 [facility] [id number] [place] [address] 16871- 7372 May, Other chronic pain G89.29 [facility] [id number] [place] [address] 23476- 1398 Apr, [facility] [id number] [place] [address] 23086- 6348 Apr, [facility] [id number] [place] [address] 82064- 6413 Apr, [facility] [id number] [place] [address] 37585- 0603 Apr, [facility] [id number] [place] [address] 02568- 9053 16 Apr, 2017 Other chronic pain G89.29 [facility] [address] 84844- 2289 15 Apr, 2017 Fatigue, unspecified type R53.83 ; Hypothyroidism, unspecified hypothyroidism type E03.9 ; Other chronic pain G89.29 ; Essential hypertension I10 ; Persistent atrial fibrillation I48.1 ; Chronic obstructive pulmonary disease, unspecified COPD type J44.9 ; Nocturnal hypoxia G47.34 ; Irritable bowel syndrome without diarrhea K58.9 ; Hyponatremia E87.1 ; Osteoporosis M81.0 and Primary insomnia F51.[address] 88672- 7580 Feb, [address] 90913- 8370 January, [address] 31963- 4960 Oct, Essential hypertension I10 [address] 04275- 3176 Sep, Shortness of breath R06.02 ; COPD with exacerbation J44.1 and Weakness R53.[address] 91869- 1263 Sep, Drug-induced constipation K59.03 and Allergic rhinitis, unspecified allergic rhinitis trigger, unspecified rhinitis seasonality J30.9 [place] [id number] [place] [address] 61904- 1301 Sep, [address] 27367- 7407 Sep, [place] [address] 25673- 6668 Sep, [address] 06566- 0084 Jul, [facility] [place] [id number] [place] [address] 41850- 3464 17 Jul, 2016 Other chronic pain G89.29 ; Hematuria R31.9 ; Screening for breast cancer Z12.39 ; Anxiety F41.9 ; Primary insomnia F51.01 ; Drug-induced constipation K59.03 and Encounter for immunization Z23 [address] 89788- 6795 Jul, 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 [place] [address] 71374- 1783 Jun, 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 and Hyponatremia E87.[address] 88098- 4569 Jun, 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 and Hyponatremia E87.1 [place] [address] 41432- 0170 May, Hyponatremia E87.1 [place] [address] 91385- 3232 May, Essential hypertension I10 ; Tobacco use Z72.0 ; Hyponatremia E87.1 ; Allergic rhinitis, unspecified allergic rhinitis trigger, unspecified rhinitis seasonality J30.9 and Osteoporosis M81.0 [place] [id number] [place] [address] 07453- 2215 Mar, [place] [address] 96973- 7603 Mar, [place] [address] 98307- 4897 Mar, Hyponatremia E87.1 [place] [id number] [place] [address] 88575- 3064 Feb, Essential hypertension I10 ; Hypothyroidism, unspecified [...] Concern about skin disease without diagnosis Z71.1 [place] [id number] [place] [address] 31378- 8372 23 Feb, 2016 [place] [id number] [place] [address] 56435- 7947 Feb, Other nonspecific abnormal finding of lung field R91.8 [place] [address] 67418- 4224 Dec, [place] [id number] [place] [address] 08447- 2135 Dec, [place] [id number] [place] [address] 57715- 0289 Nov, [place] [id number] [place] [address] 65923- 5442 Nov, [place] [id number] [place] [address] 91408- 3296 Oct, [place] [id number] [place] [address] 53513- 7861 Oct, [place] [id number] [place] [address] 45509- 8727 Oct, [place] [id number] [place] [address] 29560- 2086 16 Aug, 2015 Chronic obstructive pulmonary disease, unspecified COPD type J44.9 [facility] [id number] [place] [address] 67308- 2686 14 Aug, 2015 [place] [id number] [place] [address] 96805- 9127 10 Aug, 2015 Rectal bleeding K62.5 and GERD (gastroesophageal reflux disease) K21.9 [facility] [id number] [place] [address] 85038- 2780 Jul, [facility] [id number] [place] [address] 72424- 8578 Jul, 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 [facility] [address] 63261- 5896 Jun, [facility] [address] 53450- 1990 Jun, [facility] [address] 06382- 7444 23 May, 2015 Adrenal mass 255.9 and Abnormal dexamethasone suppression test 794.6 [facility] [address] 92050- 4857 May, Adrenal mass 255.9 [facility] [address] 67085- 5938 May, [facility] [id number] [place] [address] 70157- 8974 18 May, 2015 Pneumonia 486 and COPD (chronic obstructive pulmonary disease) 496 [facility] [id number] [place] [address] 47726- 3816 17 May, 2015 [facility] [id number] [place] [address] 66410- 1059 14 May, 2015 [facility] [id number] [place] [address] 99890- 8485 11 May, 2015 [facility] [address] 31561- 3319 10 May, 2015 [facility] [id number] [place] [address] 41156- 4778 09 May, 2015 [facility] [id number] [place] [address] 66872- 6976 May, [facility] [address] [address]- 7225 May, Adrenal mass 255.9 [facility] [id number] [address]- 8930 Apr, Adrenal mass 255.9 ; Hypothyroidism 244.9 ; Chronic sore throat 472.1 ; Atrial fibrillation 427.31 ; Hypertension 401.9 ; Generalized anxiety disorder 300.02 ; Chronic pain 338.29 and COPD (chronic obstructive pulmonary disease) 496 [facility] [address] [address]- 9287 Apr, [facility] [id number] [place] [address] 45586- 3062 Apr, [facility] [id number] [place] [address] 33296- 1690 Mar, [facility] [id number] [place] [address] 54154- 3930 Mar, Adrenal mass 255.9 [facility] [address] [address]- 0836 Mar, [facility] [id number] [place] [address] 19029- 5235 Mar, Chronic sore throat 472.1 and Adrenal mass 255.9 [facility] [address] [address]- 5202 Mar, [facility] [address] [address]- 8924 Feb, [facility] [address] [address]- 8535 Feb, [facility] [address] [address]- 3797 Feb, [facility] [address] [address]- 8954 Feb, [facility] [address] [address]- 7166 Feb, [facility] [id number] [place] [address] 80932- 3674 Feb, [facility] [id number] [place] [address] 97777- 3716 Feb, [facility] [id number] [place] [address] 84425- 2365 Feb, [facility] [id number] [place] [address] 461013- 4568 Feb, [facility] [id number] [place] [address] 734046- 0109 January, Adrenal mass 255.9 ; Hypothyroidism 244.9 ; Chronic sore throat 472.1 ; Atrial fibrillation 427.31 ; Hypertension 401.9 ; Generalized anxiety disorder 300.02 ; Chronic pain 338.29 and COPD (chronic obstructive pulmonary disease) 496 [facility] [address] [address]- 2302 January, [facility] [id number] [place] [address] 25331- 4372 January, [facility] [id number] [address]- 5445 January, Sinusitis 473.9 [facility] [address] [address]- 1822 January, [facility] [address] [address]- 8382 January, [facility] [id number] [place] [address] 32144- 0533 Dec, [facility] [address] [address]- 4190 Dec, [facility] [address] [address]- 9272 Nov, [facility] [place] [facility] [address] [id number] [place] [address]- 0771 Nov, 2014 [facility] [place] [facility] [address] [id number] [place] [address]- 3796 Nov, 2014 [facility] [place] [facility] [address] [id number] [place] [address]- 3060 Nov, 2014 [facility] [place] [facility] [address] [id number] [place] [address]- 4197 Oct, 2014 [facility] [place] [facility] [address] [id number] [place] [address]- 7635 Oct, 2014 [facility] [place] [facility] [address] [id number] [place] [address]- 0860 Oct, 2014 [facility] [place] [facility] [address] [facility] [id number] [place] [address]- 6463 Oct, 2014 [facility] [place] [facility] [address] [id number] [place] [address]- 5156 Oct, 2014 [facility] [place] [facility] [address] [id number] [place] [address]- 2245 Oct, 2014 [facility] [place] [facility] [address] [facility] [id number] [place] [address]- 9865 Oct, 2014 [facility] [place] [facility] [address] [facility] [id number] [place] [address]- 0335 Oct, 2014 [facility] [place] [facility] [address] [id number] [place] [address]- 254 Oct, 2014 [facility] [place] [facility] [address] [id number] [place] [address]- 6505 Oct, 2014 [facility] [place] [facility] [address] [id number] [place] [address]- 0258 Oct, 2014 [facility] [place] [facility] [address] [facility] [id number] [place] [address]- 7966 Oct, 2014 [facility] [place] [facility] [address] [address]- 9914 Oct, [facility] [address] [address]- 5634 Oct, [facility] [address] [address]- 8421 Oct, [facility] [address] 0190 Oct, 2014 [facility] [address] 6177 Oct, [facility] [id number] [place] [address] 673283- 2093 Oct, [facility] [id number] [place] [address] 17763- 1146 Sep, [facility] [address] [address]- 1229 Sep, [facility] [address] [address]- 8023 May, IMMUNIZATIONS No Known Immunizations SOCIAL HISTORY Never Assessed REASON FOR VISIT Pain management consult- LISBETH Will, Was taking Oxycontin 15mg BID, Hydrocodone 5mg daily, Discrepancy with provider at [facility], Attempting to get into Dr. Velasco in [place] PLAN OF CARE Activity Details Follow Up 2 Weeks Reason: VITAL SIGNS Height 64 in 2018-02-27 Weight 140 lbs 2018-02-27 Temperature 98.3 degrees Fahrenheit 2018-02-27 Heart Rate 78 bpm 2018-02-27 Respiratory Rate 24 2018-02-27 Oximetry on room air:95 % 2018-02-27 BMI 24.03 kg/m2 2018-02-27 Blood pressure systolic 162 mmHg 2018-02-27 Blood pressure diastolic 88 mmHg 2018-02-27 MEDICATIONS Medication Instructions Dosage Frequency Start Date End Date Duration Status Loratadine 10 MG Orally Once a day 1 Tablet by Oral route 1 time per day 24h Active Cardizem CD 360 mg take 1 capsule (360 mg) by oral route once daily Sep, Active Relistor 150 MG Orally Once a day 3 tablets 24h May, Aug, 30 day(s) Not-Taking Methocarbamol 750 MG Orally 3 times a day 1 tablet 8h Feb,May 30 day(s) Active Symbicort 160-4.5 mcg/actuation inhale 2 puffs by inhalation route 2 times per day in the morning and evening Nov, Active Ventolin HFA 108 (90 Base) MCG/ACT Inhalation every 4 hrs 2 puffs as needed 4h Active Omeprazole 20 mg Orally Once a day 1 capsule 24h May, 30 days Active Fluticasone Propionate 50 MCG/ACT Nasally Once a day 1 spray in each nostril 24h Active Pradaxa 150 mg take 1 capsule (150 mg) by oral route 2 times per day Sep, Not-Taking Oxygen Active Albuterol Sulfate (2.5 MG/3ML) 0.083% USE 1 VIAL ( 3 ML ) EVERY 4 HOURS NEEDED Active Incruse Ellipta 62.5 MCG/INH 1 puff Once a day Inhalation Active Duloxetine HCl 60 mg Orally Twice a day 1 capsule 12h 30 Active Embeda 20-0.8 MG Orally Once a day 1 capsule 24h Feb, Mar, 14 days Active Mirtazapine 30 MG TAKE 1 TABLET BY MOUTH AT BEDTIME ONCE A DAY 90 Active Lisinopril 20 MG Orally Once a day 1 tablet 24h 90 days Active Levothyroxine Sodium 75 MCG 1 TABLET ONCE A DAY ORALLY 30 DAYS Active Metoprolol Succinate 200 mg take 1 tablet (200 mg) by oral route once daily Sep, Active Furosemide 20 mg TAKE 1 TABLET BY MOUTH EVERY DAY NEEDED 30 Active Alendronate Sodium 70 MG Orally by oral route once weekly in the morning, at least 30 min before first food, beverage, or medication of day 1 tablet Feb, Active RESULTS Name Result Date Reference Range URINE DRUG SCREEN (IN HOUSE) 2018-02-27 Lot # [id number] Exp date 05/31 Control + COCAINE Negative AMPH Negative MTD Negative THC Negative OPIATE Negative BENZO Negative PCP Negative BAR Negative OXY + MAMP Negative BUP Negative MDMA Negative TCA N/A PROCEDURES Procedure Date Ordered Result Body Site DRUG TEST PRSMV DIR OPT OBS February 27, 2018 INSTRUCTIONS MEDICATIONS ADMINISTERED No Known Medications [...]
--- OUTSIDE RECORDS SUMMARY | 2018-06-29 08:59 | XMS REPORT ---
Author Author FABIANA SCHUMACHER Organization [facility] Address [address] 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 Active 87554953 Problem Drug induced constipation K59.03 Active 783036257531310 Problem Primary insomnia F51.01 Active 0004377 Problem Chronic pain syndrome G89.4 Active 555580358 Problem T12 compression fracture S22.080A Active 486412386 Problem Other nonspecific abnormal finding of lung field R91.8 Resolved 156201620 Problem Irritable bowel syndrome without diarrhea K58.9 Active 33494544 Problem 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 Active 917566088 Problem Tobacco use Z72.0 Active 595588272 Problem Nocturnal hypoxia G47.34 Active 138744441 Problem Essential hypertension I10 Active 27858554 Problem Hypothyroidism, unspecified hypothyroidism type E03.9 Active 56185167 Problem 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 Active 3598271703320362 Problem Chronic obstructive pulmonary disease, unspecified COPD type J44.9 Active 53257394 Problem Other chronic pain G89.29 Active 67312046 ALLERGIES No Information ENCOUNTERS Encounter Location Date Diagnosis [facility] [address] [facility] [id number] [address] Apr, Hyperkalemia E87.5 [facility] [id number] [address] Apr, [facility] [address], [place] [address] Apr, Sore throat J02.9 ; Chronic sore throat J31.2 ; Otalgia, bilateral H92.03 ; Other chronic pain G89.29 ; Paroxysmal atrial fibrillation I48.0 ; Essential hypertension I10 ; Hypothyroidism, unspecified hypothyroidism type E03.9 ; Fatigue, unspecified type R53.83 ; 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 and Acute non-recurrent pansinusitis J01.40 [facility] [address], [place] [address] Apr, Chronic pain syndrome G89.4 [facility] [address], [place] [address] Apr, [facility] [id number] [address] Mar, [facility] [address], [place] [address] Mar, [facility] [address], [place] [address] Mar, Hypothyroidism, unspecified hypothyroidism type E03.9 [facility] [address], [place] [address] Mar, [facility] [address], [place] [address] 7966 Mar, Chronic pain syndrome G89.4 [facility] [address], [place] [address] 29[address] Mar, [facility] [address], [place] [address] 22[address] Mar, Chronic pain syndrome G89.4 [facility] [address], [place] [address] Mar, [facility] [id number], [place] [address] 9[address] Mar, Chronic pain syndrome G89.4 and Other chronic pain G89.29 [facility] [id number] [place] [address] 57131- 7032 Feb, Chronic obstructive pulmonary disease, unspecified COPD type J44.9 [facility] [address], [place] [address] Feb, [facility] [id number] [place] [address] 00897- 1926 Feb, [facility] [id number] [place] [address] 31284- 4120 Feb, [facility] [id number] [place] [address] 01641- 1181 Feb, [facility] [id number] [place] [address] 77972- 4453 Feb, [facility] [id number] [place] [address] 22167- 5168 Feb, Other chronic pain G89.29 ; Rectal bleeding K62.5 and Chronic pain syndrome G89.4 [facility] [id number] [place] [address] 02883- 9428 15 Feb, 2018 [facility] [address], [place] [address] 7[address] 14 Feb, 2018 [facility] [id number] [place] [address] 33715- 8872 05 Feb, 2018 Other chronic pain G89.29 ; Essential hypertension I10 ; Osteoporosis M81.0 ; Drug induced constipation K59.03 ; Chronic obstructive pulmonary disease, unspecified COPD type J44.9 ; Hypothyroidism, unspecified hypothyroidism type E03.9 ; 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 ; Right ear pain H92.01 and Sore throat J02.9 [facility] [address], [place] [address] January, [facility] [id number] [place] [address] 94695- 6286 January, Low back pain M54.5 ; Other chronic pain G89.29 ; Pain in thoracic spine M54.6 and Neck pain M54.2 [facility] [address] [address]- [address] Dec, Low back pain M54.5 ; Other chronic pain G89.29 ; Pain in thoracic spine M54.6 and Neck pain M54.2 [place] [address] [address]- [address]23 Dec, 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 and Chronic obstructive pulmonary disease, unspecified COPD type J44.9 [place] [address] [address]43- 7584 Dec, [place] [address] [address]- 8895 Dec, Hypothyroidism, unspecified hypothyroidism type E03.9 [facility] [address] 61731- 8115 Oct, Essential hypertension I10 [place] [id number] [place] [address] 22476- 7252 Oct, [facility] [id number] [place] [address] 51037- 5567 Sep, [facility] [address] 20687- 4711 Sep, 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 [place] [address] 77071- 4988 Aug, Drug induced constipation K59.03 [facility] [address] 44561- 0253 Aug, [facility] [address] 86363- 8515 Jul, Other chronic pain G89.29 [facility] [id number] [place] [address] 49483- 4748 Jul, [facility] [address] 02037- 6359 Jul, Well woman exam (no gynecological exam) Z00.00 ; Encounter for immunization Z23 ; Tobacco use Z72.0 and 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 [facility] [address] [address]- 9216 Jul, [facility] [address] 26729- 9567 Jul, Drug induced constipation K59.03 [place] [address] 71229- 8733 Jun, Chronic obstructive pulmonary disease, unspecified COPD type J44.9 ; Tobacco use Z72.0 ; Hypothyroidism, unspecified hypothyroidism type E03.9 ; Other chronic pain G89.29 ; Drug induced constipation K59.03 and COPD exacerbation J44.1 [facility] [address] 60[address]- 5284 Jun, [facility] [id number] [place] [address] 24408- 6175 Jun, [facility] [address] 25440- 5988 Jun, Osteoporosis M81.0 [facility] [id number] [place] [address] 03280- 6201 Jun, [facility] [address] 80844- 3248 Jun, Other chronic pain G89.29 [facility] [address] 72066- 4739 Jun, Other chronic pain G89.29 [facility] [address] [place] [address]- 7831 Jun, Hypothyroidism, unspecified hypothyroidism type E03.9 [facility] [id number] [place] [address] 38281- 8257 Jun, [facility] [id number] [place] [address] 47327- 4480 May, [facility] [id number] [place] [address] 61656- 3429 May, COPD exacerbation J44.1 ; Pain of left lower extremity M79.605 ; Burn T30.0 ; Fatigue, unspecified type R53.83 ; Anemia, unspecified type D64.9 ; Adverse effect of other opioids, initial encounter T40.2X5A and Drug induced constipation K59.03 [facility] [id number] [place] [address] 37758- 8280 May, [facility] [id number] [place] [address] 24947- 2539 May, Burn T30.0 [facility] [id number] [place] [address] 73372- 7547 18 May, 2017 Other chronic pain G89.29 and Burn T30.0 [facility] [id number] [place] [address] 21991- 3939 14 May, 2017 Other chronic pain G89.29 [facility] [id number] [place] [address] 16492- 6107 Apr, [facility] [id number] [place] [address] 94227- 9510 Apr, [facility] [id number] [place] [address] 40385- 6968 Apr, [facility] [id number] [place] [address] 73159- 1768 Apr, [facility] [id number] [place] [address] 10868- 2147 Apr, Other chronic pain G89.29 [place] [address] 88404- 4079 15 Apr, 2017 Fatigue, unspecified type R53.83 ; Hypothyroidism, unspecified hypothyroidism type E03.9 ; Other chronic pain G89.29 ; Essential hypertension I10 ; Persistent atrial fibrillation I48.1 ; Chronic obstructive pulmonary disease, unspecified COPD type J44.9 ; Nocturnal hypoxia G47.34 ; Irritable bowel syndrome without diarrhea K58.9 ; Hyponatremia E87.1 ; Osteoporosis M81.0 and Primary insomnia F51.01 [place] [address] 01667- 8513 Feb, [address] [address]- 7571 January, [address] 55514- 9908 Oct, Essential hypertension I10 [address] 64678- 2910 Sep, Shortness of breath R06.02 ; COPD with exacerbation J44.1 and Weakness R53.[address] 92821- 4785 Sep, Drug-induced constipation K59.03 and Allergic rhinitis, unspecified allergic rhinitis trigger, unspecified rhinitis seasonality J30.[address] 86174- 2343 Sep, [place] [address] 09225- 6799 Sep, [address] 56254- 5767 Sep, [address] 39753- 8824 Jul, [address] 48828- 0161 Jul, Other chronic pain G89.29 ; Hematuria R31.9 ; Screening for breast cancer Z12.39 ; Anxiety F41.9 ; Primary insomnia F51.01 ; Drug-induced constipation K59.03 and Encounter for immunization Z23 [address] 97934- 3920 Jul, 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 47430- 4232 Jun, 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 and Hyponatremia E87.[address] 79180- 9627 Jun, 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 and Hyponatremia E87.[address] 19462- 5348 May, Hyponatremia E87.[address] 87582- 2029 May, Essential hypertension I10 ; Tobacco use Z72.0 ; Hyponatremia E87.1 ; Allergic rhinitis, unspecified allergic rhinitis trigger, unspecified rhinitis seasonality J30.9 and Osteoporosis M81.[address] 52350- 3131 Mar, [address] 32371- 9688 Mar, [address] 15543- 3204 Mar, Hyponatremia E87.[address] 27378- 0574 Feb, Essential hypertension I10 ; Hypothyroidism, unspecified [...] Concern about skin disease without diagnosis Z71.1 [facility] [id number] [place] [address] 78385- 7989 Feb, [facility] [address] 80212- 7459 Feb, Other nonspecific abnormal finding of lung field R91.8 [facility] [address] 28079- 6157 Dec, [facility] [address] 48064- 1124 Dec, [facility] [address] 18421- 6136 Nov, [facility] [address] 02827- 3208 Nov, [facility] [id number] [place] [address] 92035- 2150 Oct, [facility] [id number] [place] [address] 33031- 7375 Oct, [facility] [id number] [place] [address] 65497- 1559 Oct, [facility] [id number] [place] [address] 16477- 4370 Aug, Chronic obstructive pulmonary disease, unspecified COPD type J44.9 [facility] [address] 02651- 2605 14 Aug, 2015 [facility] [id number] [place] [address] 22054- 8880 10 Aug, 2015 Rectal bleeding K62.5 and GERD (gastroesophageal reflux disease) K21.9 [facility] [address] [place] [address]- 9814 Jul, [facility] [address] 35272- 3981 Jul, 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 [facility] [address] 10826- 9680 Jun, [facility] [address] 63973- 2417 Jun, [facility] [address] 45515- 8981 23 May, 2015 Adrenal mass 255.9 and Abnormal dexamethasone suppression test 794.6 [facility] [address] 26663- 9254 21 May, 2015 Adrenal mass 255.9 [facility] [address] 95413- 9620 May, [facility] [address] 32608- 0820 18 May, 2015 Pneumonia 486 and COPD (chronic obstructive pulmonary disease) 496 [facility] [address] 31450- 8747 17 May, 2015 [facility] [id number] [place] [address] 19188- 0169 14 May, 2015 [facility] [address] 07900- 6704 11 May, 2014 [facility] [id number] [place] [address] 27430- 6830 10 May, 2014 [facility] [address] 41908- 8678 09 May, 2014 [facility] [id number] [place] [address] 39408- 5746 08 May, 2014 [facility] [address] 00764- 7575 May, Adrenal mass 255.9 [facility] [address], [place] [address]- 5029 Apr, Adrenal mass 255.9 ; Hypothyroidism 244.9 ; Chronic sore throat 472.1 ; Atrial fibrillation 427.31 ; Hypertension 401.9 ; Generalized anxiety disorder 300.02 ; Chronic pain 338.29 and COPD (chronic obstructive pulmonary disease) 496 [facility] [id number] [place] [address] 47434- 6859 Apr, [facility] [id number] [place] [address] 12622- 4970 Apr, [facility] [address] 70305- 8220 Mar, [facility] [id number] [place] [address] 27313- 6289 Mar, Adrenal mass 255.9 [facility] [id number] [place] [address] 86859- 7648 Mar, [facility] [id number] [place] [address] 83848- 5102 Mar, Chronic sore throat 472.1 and Adrenal mass 255.9 [facility] [id number] [place] [address] 30179- 1210 Mar, [facility] [id number] [place] [address] 69771- 3371 Feb, [facility] [id number] [place] [address] 76011- 9659 Feb, [facility] [id number] [place] [address] 46622- 2666 Feb, [facility] [id number] [place] [address] 57440- 3921 Feb, [facility] [id number] [place] [address] 66558- 9020 Feb, [facility] [address], [place] [address]- 6789 Feb, [facility] [address], [place] [address]- 8726 Feb, [facility] [address], [place] [address]- 7666 Feb, [facility] [id number] [place] [address] 27541- 6555 Feb, [facility] [address], [place] [address]- 0764 January, Adrenal mass 255.9 ; Hypothyroidism 244.9 ; Chronic sore throat 472.1 ; Atrial fibrillation 427.31 ; Hypertension 401.9 ; Generalized anxiety disorder 300.02 ; Chronic pain 338.29 and COPD (chronic obstructive pulmonary disease) 496 [facility] [address], [place] [address]- 5160 January, [facility] [address], [place] [address]- 4583 January, [facility] [id number] [place] [address] 976066- 2481 January, Sinusitis 473.9 [facility] [address], [place] [address]- 7963 January, [facility] [address], [place] [address]- 2586 January, [facility] [address], [place] [address]- 6080 Dec, [facility] [id number], [place] [address]- 4364 Dec, [facility] [address], [place] [address]- 3456 Nov, [facility] [address], [place] [address]- 2384 Nov, [facility] [place] [facility] [address] [id number] [place] [address]- 4660 Nov, [facility] [place] [facility] [address] [facility] [id number] [place] [address]- 7126 Nov, 2014 [facility] [place] [facility] [address] [facility] [id number] [place] [address]- 9706 Oct, 2014 [facility] [place] [facility] [address] [facility] [id number] [place] [address]- 8320 Oct, 2014 [facility] [place] [facility] [address] [facility] [id number] [place] [address]- 0174 Oct, 2014 [facility] [place] [facility] [address] [facility] [id number] [place] [address]- 6296 Oct, 2014 [facility] [place] [facility] [address] [facility] [id number] [place] [address]- 7956 Oct, 2014 [facility] [place] [facility] [address] [facility] [id number] [place] [address]- 8711 Oct, 2014 [facility] [place] [facility] [address] [facility] [id number] [place] [address]- 4201 Oct, 2014 [facility] [place] [facility] [address] [facility] [id number] [place] [address]- 0480 Oct, 2014 [facility] [place] [facility] [address] [facility] [id number] [place] [address]- 3249 Oct, 2014 [facility] [place] [facility] [address] [facility] [id number] [place] [address]- 5079 Oct, 2014 [facility] [place] [facility] [address] [facility] [id number] [place] [address]- 8176 Oct, 2014 [facility] [place] [facility] [address] [facility] [id number] [place] [address]- 5214 Oct, 2014 [facility] [place] [facility] [address] [facility] [id number] [place] [address]- 2796 Oct, 2014 [facility] [place] [facility] [id number], [place] [address]- 9819 Oct, [facility] [address], [place] [address]- 7904 Oct, [facility] [address], [place] [address]- 2886 Oct, [facility] [id number] [place] [address] 83209- 6318 Oct, [facility] [address]- 1638 Oct, [facility] [address], [place] [address]- 5794 Sep, [facility] [address], [place] [address]- 5080 Sep, [facility] [address], [place] [address]- 3547 May, IMMUNIZATIONS No Known Immunizations SOCIAL HISTORY Never Assessed REASON FOR VISIT [employer] PLAN OF CARE VITAL SIGNS MEDICATIONS Unknown [...]
[2018-06-29] MEDS ORDERED: FAMOTIDINE 20MG/2ML IV (PEPCID) IV ONE (09:00)
[2018-06-29] MEDS ORDERED: MIDAZOLAM 2 MG/2 ML (VERSED) VIAL IV ONE (09:00)
--- OUTSIDE RECORDS SUMMARY | 2018-06-29 09:00 | XMS REPORT ---
Author Author SHANICE OBINNA [facility] Address [address] [place] [address] Care Team Providers Care Family Services Coordinator Name Role Phone OBINNA PRASAD Unavailable PROBLEMS Type Condition ICD9-CM Code DWT13-OQ Code Onset Dates Condition Status SNOMED Code Problem Rectal bleeding K62.5 Active 78644279 Problem Allergic rhinitis, unspecified allergic rhinitis trigger, unspecified rhinitis seasonality J30.9 Active 95541275 Problem Osteoporosis M81.0 Active 18804697 Problem Paroxysmal atrial fibrillation I48.0 Active 526569193 Problem Anxiety F41.9 Active 41510412 Problem Chronic sore throat J31.2 Active 363605826 Problem 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 Active 13946223 Problem Drug induced constipation K59.03 Active 497436532117873 Problem Primary insomnia F51.01 Active 6592414 Problem Chronic pain syndrome G89.4 Active 274882768 Problem T12 compression fracture S22.080A Active 540187241 Problem Other nonspecific abnormal finding of lung field R91.8 Resolved 462476864 Problem Irritable bowel syndrome without diarrhea K58.9 Active 09385961 Problem 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 [address] [facility] [id number] [address] Apr, [facility] [id number], [place] [address] Apr, Sore throat J02.9 ; Chronic sore throat J31.2 ; Otalgia, bilateral H92.03 ; Other chronic pain G89.29 ; Paroxysmal atrial fibrillation I48.0 ; Essential hypertension I10 ; Hypothyroidism, unspecified hypothyroidism type E03.9 ; Fatigue, unspecified type R53.83 ; 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 and Acute non-recurrent pansinusitis J01.40 [facility] [address] [address] Apr, Chronic pain syndrome G89.4 [facility] [id number] [place] [address] 11970- 9321 Apr, [facility] [id number] [place] [address] 79672- 1601 Mar, [facility] [id number] [place] [address] 24936- 8118 Mar, [facility] [address] 17209- 2674 Mar, Hypothyroidism, unspecified hypothyroidism type E03.9 [facility] [address] 19577- 4309 Mar, [facility] [id number] [place] [address] 95984- 0143 Mar, Chronic pain syndrome G89.4 [facility] [id number] [place] [address] 64831- 9196 Mar, [facility] [id number] [place] [address] 70030- 5657 Mar, Chronic pain syndrome G89.4 [facility] [id number] [place] [address] 06934- 1930 Mar, [facility] [id number] [place] [address] 04571- 1243 Mar, Chronic pain syndrome G89.4 and Other chronic pain G89.29 [facility] [address] [address] Feb, Chronic obstructive pulmonary disease, unspecified COPD type J44.9 [facility] [address], [place] [address] 0[address] Feb, [facility] [address], [place] [address] 9126 Feb, [facility] [id number] [place] [address] 88305- 8385 Feb, [facility] [id number] [place] [address] 09103- 7650 Feb, [facility] [id number] [place] [address] 45355- 7846 Feb, [facility] [id number] [place] [address] 74443- 5982 Feb, Other chronic pain G89.29 ; Rectal bleeding K62.5 and Chronic pain syndrome G89.4 [facility] [address], [place] [address] 5245 Feb, [facility] [address] [place] [address] 00171- 5767 Feb, 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 [address], [place] [address] January, [facility] [address], [place] [address] January, Low back pain M54.5 ; Other chronic pain G89.29 ; Pain in thoracic spine M54.6 and Neck pain M54.2 [place] [address] [address]- 3881 Dec, Low back pain M54.5 ; Other chronic pain G89.29 ; Pain in thoracic spine M54.6 and Neck pain M54.2 [place] [address] 39003- 1116 Dec, 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 and Chronic obstructive pulmonary disease, unspecified COPD type J44.9 [place] [address] 84333- 9186 Dec, [place] [address] 54600- 0246 Dec, Hypothyroidism, unspecified hypothyroidism type E03.9 [place] [address] 91319- 8727 Oct, Essential hypertension I10 [place] [address] 34549- 5236 Oct, [place] [address] 04052- 1775 Sep, [place] [address] 84122- 3392 Sep, 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 [place] [address] 20348- 8571 Aug, Drug induced constipation K59.03 [place] [address] 57170- 2038 Aug, [place] [address] 77618- 1785 Jul, Other chronic pain G89.29 [place] [address] 85864- 7992 Jul, [facility] [address] [place] [address] 61138- 2315 Jul, Well woman exam (no gynecological exam) Z00.00 ; Encounter for immunization Z23 ; Tobacco use Z72.0 and 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 [facility] [address] [place] [address] 57457- 5841 Jul, [facility] [id number] [place] [address] 39074- 4978 Jul, Drug induced constipation K59.03 [facility] [id number] [place] [address] 03835- 5484 Jun, Chronic obstructive pulmonary disease, unspecified COPD type J44.9 ; Tobacco use Z72.0 ; Hypothyroidism, unspecified hypothyroidism type E03.9 ; Other chronic pain G89.29 ; Drug induced constipation K59.03 and COPD exacerbation J44.1 [facility] [id number] [place] [address] 45294- 7955 Jun, [facility] [id number] [place] [address] 47845- 9210 Jun, [facility] [id number] [place] [address] 95256- 5490 Jun, Osteoporosis M81.0 [facility] [address] [place] [address] 16472- 5119 Jun, [facility] [id number] [place] [address] 34378- 7581 Jun, Other chronic pain G89.29 [facility] [id number] [place] [address] 19724- 5344 Jun, Other chronic pain G89.29 [facility] [id number] [place] [address] 34621- 6310 Jun, Hypothyroidism, unspecified hypothyroidism type E03.9 [facility] [id number] [place] [address] 75939- 4082 Jun, [facility] [id number] [place] [address] 28656- 2149 May, [facility] [id number] [place] [address] 16181- 6233 May, COPD exacerbation J44.1 ; Pain of left lower extremity M79.605 ; Burn T30.0 ; Fatigue, unspecified type R53.83 ; Anemia, unspecified type D64.9 ; Adverse effect of other opioids, initial encounter T40.2X5A and Drug induced constipation K59.03 [facility] [id number] [place] [address] 57156- 7314 May, [facility] [id number] [place] [address] 82814- 0416 May, Burn T30.0 [facility] [id number] [place] [address] 53267- 4547 18 May, 2017 Other chronic pain G89.29 and Burn T30.0 [facility] [id number] [place] [address] 69265- 5020 14 May, 2017 Other chronic pain G89.29 [facility] [id number] [place] [address] 11280- 8582 Apr, [facility] [id number] [place] [address] 15719- 0017 Apr, [facility] [id number] [place] [address] 47105- 5427 Apr, [facility] [id number] [place] [address] 45912- 2087 Apr, [facility] [id number] [place] [address] 31223- 2602 Apr, Other chronic pain G89.29 [facility] [id number] [place] [address] 43662- 7656 Apr, Fatigue, unspecified type R53.83 ; Hypothyroidism, unspecified hypothyroidism type E03.9 ; Other chronic pain G89.29 ; Essential hypertension I10 ; Persistent atrial fibrillation I48.1 ; Chronic obstructive pulmonary disease, unspecified COPD type J44.9 ; Nocturnal hypoxia G47.34 ; Irritable bowel syndrome without diarrhea K58.9 ; Hyponatremia E87.1 ; Osteoporosis M81.0 and Primary insomnia F51.[address] 83079- 7739 Feb, [address] 60737- 5399 January, [address] 50675- 1086 Oct, Essential hypertension I10 [address] 59535- 5375 Sep, Shortness of breath R06.02 ; COPD with exacerbation J44.1 and Weakness R53.[address] 08422- 0777 Sep, Drug-induced constipation K59.03 and Allergic rhinitis, unspecified allergic rhinitis trigger, unspecified rhinitis seasonality J30.9 [address] [place] [id number] [place] [address] 53377- 6590 Sep, [address] 53596- 7057 Sep, [address] 05815- 5016 Sep, [address] 67102- 4147 Jul, [address] 68010- 0065 Jul, Other chronic pain G89.29 ; Hematuria R31.9 ; Screening for breast cancer Z12.39 ; Anxiety F41.9 ; Primary insomnia F51.01 ; Drug-induced constipation K59.03 and Encounter for immunization Z23 [place] [address] 82067- 3544 Jul, 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 [place] [address] 90014- 7976 Jun, 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 and Hyponatremia E87.1 [place] [address] 63252- 0290 Jun, 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 and Hyponatremia E87.1 [place] [address] 98359- 1257 May, Hyponatremia E87.1 [place] [address] 73060- 6450 May, Essential hypertension I10 ; Tobacco use Z72.0 ; Hyponatremia E87.1 ; Allergic rhinitis, unspecified allergic rhinitis trigger, unspecified rhinitis seasonality J30.9 and Osteoporosis M81.0 [place] [address] 09421- 5383 Mar, [place] [address] 60811- 4552 Mar, [place] [address] 67998- 4747 Mar, Hyponatremia E87.1 [place] [address] 06906- 3451 Feb, Essential hypertension I10 ; Hypothyroidism, unspecified [...] [facility] [id number] [place] [address] 99292- 2412 Feb, [facility] [id number] [place] [address] 71076- 2688 Feb, Other nonspecific abnormal finding of lung field R91.8 [facility] [id number] [place] [address] 81484- 0844 Dec, [facility] [id number] [place] [address] 89029- 2272 Dec, [facility] [id number] [place] [address] 16145- 6727 Nov, [facility] [id number] [place] [address] 09448- 3324 Nov, [facility] [id number] [place] [address] 03938- 2404 Oct, [facility] [address] [place] [address] 68442- 1515 Oct, [facility] [address] [place] [address] 05313- 6694 Oct, [facility] [id number] [place] [address] 18220- 1994 Aug, Chronic obstructive pulmonary disease, unspecified COPD type J44.9 [facility] [address], [place] [address]- 6415 Aug, [facility] [id number] [place] [address] 25596- 0977 Aug, Rectal bleeding K62.5 and GERD (gastroesophageal reflux disease) K21.9 [facility] [id number] [place] [address] 73377- 5254 Jul, [facility] [id number] [place] [address] 30403- 0620 Jul, 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 [facility] [id number] [place] [address] 31088- 0296 Jun, [facility] [id number] [place] [address] 06526- 6216 05 Jun, 2015 [facility] [id number] [place] [address] 02409- 2548 23 May, 2015 Adrenal mass 255.9 and Abnormal dexamethasone suppression test 794.6 [facility] [id number] [place] [address] 93685 2540 May, Adrenal mass 255.9 [facility] [id number] [place] [address] 11270- 7446 May, [facility] [id number] [place] [address] 72383- 2925 18 May, 2015 Pneumonia 486 and COPD (chronic obstructive pulmonary disease) 496 [facility] [address] [place] [address] 13959- 2548 17 May, 2015 [facility] [id number] [place] [address] 18317- 3605 14 May, 2015 [facility] [address] [place] [address] 93769- 254 11 May, 2015 [facility] [id number] [place] [address] 93314- 2541 10 May, 2015 [facility] [address] [place] [address] 06194- 2548 09 May, 2015 [facility] [id number] [place] [address] 31038 2541 08 May, 2015 [facility] [address] [place] [address] 17420- 2545 04 May, 2015 Adrenal mass 255.9 [facility] [address] [place] [address] 051796- 9477 Apr, Adrenal mass 255.9 ; Hypothyroidism 244.9 ; Chronic sore throat 472.1 ; Atrial fibrillation 427.31 ; Hypertension 401.9 ; Generalized anxiety disorder 300.02 ; Chronic pain 338.29 and COPD (chronic obstructive pulmonary disease) 496 [facility] [address], [place] [address]- 2467 Apr, [facility] [id number] [place] [address] 55114- 5874 Apr, [facility] [id number] [place] [address] 62029- 1887 Mar, [facility] [id number] [place] [address] 34293- 2119 Mar, Adrenal mass 255.9 [facility] [id number] [place] [address] 87292- 6782 Mar, [facility] [id number] [place] [address] 82125- 1107 Mar, Chronic sore throat 472.1 and Adrenal mass 255.9 [facility] [id number] [place] [address] 31367- 6262 Mar, [facility] [id number] [place] [address] 39872- 5439 Feb, [facility] [id number] [place] [address] 05680- 4870 Feb, [facility] [id number] [place] [address] 46216- 1558 Feb, [facility] [id number] [place] [address] 36317- 3435 Feb, [facility] [id number] [place] [address] 07430- 3362 Feb, [facility] [address] [address]- 0510 Feb, [facility] [address], [place] [address]- 0103 Feb, [facility] [id number] [place] [address] 66688- 5851 Feb, [facility] [id number] [place] [address] 34279- 2715 Feb, [facility] [id number] [place] [address] 59165- 6271 January, Adrenal mass 255.9 ; Hypothyroidism 244.9 ; Chronic sore throat 472.1 ; Atrial fibrillation 427.31 ; Hypertension 401.9 ; Generalized anxiety disorder 300.02 ; Chronic pain 338.29 and COPD (chronic obstructive pulmonary disease) 496 [facility] [id number] [place] [address] 51707- 1047 January, [facility] [id number] [place] [address] 42457- 9536 January, [facility] [id number] [place] [address] 78537- 4595 January, Sinusitis 473.9 [facility] [id number] [place] [address] 644394- 1999 January, [facility] [address], [place] [address]- 4673 January, [facility] [address], [place] [address]- 3754 Dec, [facility] [id number], [place] [address] Dec, [facility] [id number], [place] [address] Nov, [facility] [id number] [address] Nov, [facility] [id number], [place] [address] Nov, [facility] [place] [facility] [address] [id number] [place] [address] Nov, [facility] [place] [facility] [address] [id number] [place] [address] Oct, 2014 [facility] [place] [facility] [address] [facility] [id number] [place] [address] Oct, 2014 [facility] [place] [facility] [address] [facility] [id number] [place] [address] Oct, 2014 [facility] [place] [facility] [address] [id number] [place] [address] Oct, 2014 [facility] [place] [facility] [address] [facility] [id number] [place] [address] Oct, 2014 [facility] [place] [facility] [address] [facility] [id number] [place] [address] Oct, 2014 [facility] [place] [facility] [address] [facility] [id number] [place] [address] Oct, 2014 [facility] [place] [facility] [address] [facility] [id number] [place] [address] Oct, 2014 [facility] [place] [facility] [address] [facility] [id number] [place] [address] Oct, 2014 [facility] [place] [facility] [address] [facility] [id number] [place] [address] Oct, 2014 [facility] [place] [facility] [address] [facility] [id number] [place] [address] Oct, 2014 [facility] [place] [facility] [address] [facility] [id number] [place] [address] Oct, 2014 [facility] [place] [facility] [address] [facility] [id number] [place] [address] Oct, 2014 [facility] [place] [facility] [address] [facility] [id number] [place] [address] Oct, 2014 [facility] [place] [facility] [address] [facility] [id number], [place] [address] Oct, [facility] [id number], [place] [address] Oct, [facility] [id number], [place] [address] Oct, [facility] [id number], [place] [address] Oct, [facility] [id number], [place] [address] Sep, [facility] [id number], [place] [address] Sep, [facility] [id number], [place] [address] May, IMMUNIZATIONS No Known Immunizations SOCIAL HISTORY Never Assessed REASON FOR VISIT Medication Question PLAN OF CARE VITAL SIGNS MEDICATIONS Medication Instructions Dosage Frequency Start Date End Date Duration Status Lidoderm 5 % Externally Once a day 1 patch to skin remove after 12 hours 24h Feb, Aug, 30 days Active RESULTS No Results PROCEDURES [...]
--- OUTSIDE RECORDS SUMMARY | 2018-06-29 09:00 | XMS REPORT ---
Author Author SHANICE OBINNA [facility] Address [address] [place] [address] Care Team Providers Care Burr Picker Name Role Phone OBINNA PRASAD Unavailable PROBLEMS Type Condition ICD9-CM Code PBI98-HA Code Onset Dates Condition Status SNOMED Code Problem Other chronic pain G89.29 Active 40416656 Problem Rectal bleeding K62.5 Active 61993557 Problem 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 Active 2857083832349207 Problem Chronic pain syndrome G89.4 Active 357496308 Problem Anxiety F41.9 Active 64357142 Problem T12 compression fracture S22.080A Active 989771490 Problem Allergic rhinitis, unspecified allergic rhinitis trigger, unspecified rhinitis seasonality J30.9 Active 35224846 Problem Osteoporosis M81.0 Active 34921049 Problem Drug induced constipation K59.03 Active 598515083856742 Problem Primary insomnia F51.01 Active 9773861 Problem Other nonspecific abnormal finding of lung field R91.8 Resolved 845785002 Problem Irritable bowel syndrome without diarrhea K58.9 Active 33128231 Problem 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 Active 822215415 Problem Tobacco use Z72.0 Active 307036682 Problem Chronic obstructive pulmonary disease, unspecified COPD type J44.9 Active 03779819 Problem Nocturnal hypoxia G47.34 Active 417931700 Problem Persistent atrial fibrillation I48.1 Active 999502474 Problem Essential hypertension I10 Active 55807639 Problem Hypothyroidism, unspecified hypothyroidism type E03.9 Active 68588297 Problem 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 Active 35787044 ALLERGIES No Information ENCOUNTERS Encounter Location Date Diagnosis [facility] [address] [facility] [id number] [address] Apr, [facility] [address] [facility] [place] [id number] [address] Apr, Chronic pain syndrome G89.4 [facility] [address] [facility] [place] [id number] [address] Apr, [facility] [address] [address] 39[address] Mar, [facility] [address] [id number] [address] 7697 Mar, [facility] [id number] [place] [address] 53999- 6265 Mar, Hypothyroidism, unspecified hypothyroidism type E03.9 [facility] [address] [facility] [place] [id number] [place] [address] 54309- 1328 Mar, [facility] [id number] [place] [address] 13040- 7790 Mar, Chronic pain syndrome G89.4 [facility] [id number] [place] [address] 81789- 5266 Mar, [facility] [id number] [place] [address] 11662- 3452 Mar, Chronic pain syndrome G89.4 [facility] [address] [address] 9[address] Mar, [facility] [address] [address] 7124 Mar, Chronic pain syndrome G89.4 and Other chronic pain G89.29 [facility] [address] [address] 4[address] Feb, Chronic obstructive pulmonary disease, unspecified COPD type J44.9 [facility] [address] [facility] [place] [id number], [place] [address] 1877 Feb, [facility] [address] [id number] [address] 3[address] Feb, [facility] [address] [address] 8484 Feb, [facility] [address] [address]- 5514 Feb, [facility] [address] [address] 8605 Feb, [facility] [address] [address] 6382 Feb, Other chronic pain G89.29 ; Rectal bleeding K62.5 and Chronic pain syndrome G89.4 [facility] [id number] [place] [address] 65803- 9112 15 Feb, 2018 [facility] [id number] [place] [address] 21663- 4051 Feb, [facility] [id number] [place] [address] 22267- 3805 05 Feb, 2018 Other chronic pain G89.29 ; Essential hypertension I10 ; Osteoporosis M81.0 ; Drug induced constipation K59.03 ; Chronic obstructive pulmonary disease, unspecified COPD type J44.9 ; Hypothyroidism, unspecified hypothyroidism type E03.9 ; 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 ; Right ear pain H92.01 and Sore throat J02.9 [facility] [address] [address] 84[address] January, [facility] [address] [address] 4950 January, Low back pain M54.5 ; Other chronic pain G89.29 ; Pain in thoracic spine M54.6 and Neck pain M54.2 [facility] [address] [address] 1264 Dec, Low back pain M54.5 ; Other chronic pain G89.29 ; Pain in thoracic spine M54.6 and Neck pain M54.2 [facility] [address] [address] 0780 Dec, 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 and Chronic obstructive pulmonary disease, unspecified COPD type J44.9 [place] [facility] [id number] [place] [address] 79811- 4288 Dec, [place] [address] 14033- 0595 Dec, Hypothyroidism, unspecified hypothyroidism type E03.9 [place] [address] 76036- 0562 Oct, Essential hypertension I10 [place] [address] 60672- 8117 Oct, [place] [address] 27022- 4767 Sep, [place] [address] 41933- 6290 Sep, 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 [place] [address] 34201- 5568 Aug, Drug induced constipation K59.03 [place] [address] 14424- 3110 Aug, [place] [address] 28289- 6688 Jul, Other chronic pain G89.29 [place] [address] 96708- 9770 Jul, [facility] [facility] [id number] [place] [address] 07273- 2429 08 Jul, 2017 Well woman exam (no gynecological exam) Z00.00 ; Encounter for immunization Z23 ; Tobacco use Z72.0 and 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 [facility] [id number] [place] [address] 56664- 7296 02 Jul, 2017 [place] [address] 90234- 7992 Jul, Drug induced constipation K59.03 [facility] [address] [address]- 0861 Jun, Chronic obstructive pulmonary disease, unspecified COPD type J44.9 ; Tobacco use Z72.0 ; Hypothyroidism, unspecified hypothyroidism type E03.9 ; Other chronic pain G89.29 ; Drug induced constipation K59.03 and COPD exacerbation J44.1 [facility] [id number] [place] [address] 19698- 3484 Jun, [facility] [id number] [place] [address] 45284- 6803 Jun, [facility] [id number] [place] [address] 64330- 6849 Jun, Osteoporosis M81.0 [facility] [id number] [place] [address] 53188- 2295 Jun, [facility] [id number] [place] [address] 17666- 1167 Jun, Other chronic pain G89.29 [facility] [id number] [place] [address] 92795- 8847 Jun, Other chronic pain G89.29 [facility] [id number] [place] [address] 35946- 8883 Jun, Hypothyroidism, unspecified hypothyroidism type E03.9 [facility] [id number] [place] [address] 48046- 7078 Jun, [facility] [address] [place] [address] 81955- 2368 May, [facility] [id number] [place] [address] 22806- 0417 May, COPD exacerbation J44.1 ; Pain of left lower extremity M79.605 ; Burn T30.0 ; Fatigue, unspecified type R53.83 ; Anemia, unspecified type D64.9 ; Adverse effect of other opioids, initial encounter T40.2X5A and Drug induced constipation K59.03 [facility] [address] [address]- 3763 May, [facility] [id number] [place] [address] 73796- 9753 May, Burn T30.0 [facility] [id number] [place] [address] 52692- 6406 18 May, 2017 Other chronic pain G89.29 and Burn T30.0 [facility] [id number] [place] [address] 71365- 4752 14 May, 2017 Other chronic pain G89.29 [facility] [id number] [place] [address] 75293- 4116 Apr, [facility] [id number] [place] [address] 35377- 3550 Apr, [facility] [id number] [place] [address] 93269- 0220 Apr, [facility] [id number] [place] [address] 18878- 9807 Apr, [facility] [id number] [place] [address] 59881- 5983 Apr, Other chronic pain G89.29 [facility] [id number] [place] [address] 72729- 6070 Apr, Fatigue, unspecified type R53.83 ; Hypothyroidism, unspecified hypothyroidism type E03.9 ; Other chronic pain G89.29 ; Essential hypertension I10 ; Persistent atrial fibrillation I48.1 ; Chronic obstructive pulmonary disease, unspecified COPD type J44.9 ; Nocturnal hypoxia G47.34 ; Irritable bowel syndrome without diarrhea K58.9 ; Hyponatremia E87.1 ; Osteoporosis M81.0 and Primary insomnia F51.01 [facility] [address] [place] [address] 24749- 3684 Feb, [facility] [id number] [place] [address] 04567- 8156 January, [address] 69912- 3507 Oct, Essential hypertension I10 [address] 47786- 2117 Sep, Shortness of breath R06.02 ; COPD with exacerbation J44.1 and Weakness R53.[address] 88003- 3284 Sep, Drug-induced constipation K59.03 and Allergic rhinitis, unspecified allergic rhinitis trigger, unspecified rhinitis seasonality J30.[address] 54524- 9807 Sep, [address] 46681- 9915 Sep, [address] 82257- 2914 Sep, [address] 26614- 8441 Jul, [address] 57312- 5192 Jul, Other chronic pain G89.29 ; Hematuria R31.9 ; Screening for breast cancer Z12.39 ; Anxiety F41.9 ; Primary insomnia F51.01 ; Drug-induced constipation K59.03 and Encounter for immunization Z23 [place] [id number] [place] [address] 08200- 6186 Jul, 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 02993- 3884 Jun, 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 and Hyponatremia E87.[address] 28549- 4483 Jun, 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 and Hyponatremia E87.1 [place] [id number] [place] [address] 96354- 8379 May, Hyponatremia E87.1 [place] [id number] [place] [address] 52874- 6228 May, Essential hypertension I10 ; Tobacco use Z72.0 ; Hyponatremia E87.1 ; Allergic rhinitis, unspecified allergic rhinitis trigger, unspecified rhinitis seasonality J30.9 and Osteoporosis M81.0 [place] [id number] [place] [address] 81296- 0370 Mar, [place] [address] 60711- 6672 Mar, [place] [id number] [place] [address] 07971- 0573 Mar, Hyponatremia E87.1 [place] [id number] [place] [address] 27084- 6202 Feb, Essential hypertension I10 ; Hypothyroidism, unspecified [...] Concern about skin disease without diagnosis Z71.1 [place] [address] [place] [address] 66390- 7575 Feb, [place] [id number] [place] [address] 03374- 9065 Feb, Other nonspecific abnormal finding of lung field R91.8 [place] [id number] [place] [address] 11754- 4654 Dec, [address] [place] [address] 89685- 9683 Dec, [facility] [id number] [place] [address] 50998- 6475 Nov, [facility] [id number] [place] [address] 17467- 8975 Nov, [facility] [id number] [place] [address] 68610- 5645 Oct, [facility] [id number] [place] [address] 92791- 7827 Oct, [facility] [address] [place] [address] 23348- 9986 Oct, [facility] [id number] [place] [address] 18010- 6085 Aug, Chronic obstructive pulmonary disease, unspecified COPD type J44.9 [facility] [id number] [place] [address] 34410- 5320 Aug, [facility] [id number] [place] [address] 18365- 4233 Aug, Rectal bleeding K62.5 and GERD (gastroesophageal reflux disease) K21.9 [facility] [id number] [place] [address] 40613- 2074 Jul, [facility] [id number] [place] [address] 15607- 4678 Jul, 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 [facility] [id number] [place] [address] 40017- 2586 Jun, [facility] [id number] [place] [address] 39054- 5215 Jun, [facility] [id number] [place] [address] 62991- 2097 23 May, 2015 Adrenal mass 255.9 and Abnormal dexamethasone suppression test 794.6 [facility] [address] [address]- 6340 May, Adrenal mass 255.9 [facility] [id number] [place] [address] 73180- 3123 21 May, 2015 [facility] [address] [place] [address] 99208- 6615 18 May, 2015 Pneumonia 486 and COPD (chronic obstructive pulmonary disease) 496 [facility] [id number] [place] [address] 66964- 4249 17 May, 2014 [facility] [id number] [place] [address] 82724- 1864 14 May, 2015 [facility] [id number] [place] [address] 23687- 7978 11 May, 2015 [facility] [id number] [place] [address] 25606- 1460 10 May, 2015 [facility] [address] [place] [address] 71158- 2184 09 May, 2015 [facility] [address] [place] [address] 96736- 2722 08 May, 2015 [facility] [address] [place] [address] 84749- 9818 04 May, 2015 Adrenal mass 255.9 [facility] [address] [place] [address] 11956- 3960 Apr, Adrenal mass 255.9 ; Hypothyroidism 244.9 ; Chronic sore throat 472.1 ; Atrial fibrillation 427.31 ; Hypertension 401.9 ; Generalized anxiety disorder 300.02 ; Chronic pain 338.29 and COPD (chronic obstructive pulmonary disease) 496 [facility] [address] [place] [address] 68671- 8974 Apr, [facility] [address] [place] [address] 07955- 9368 Apr, [facility] [id number] [place] [address] 82855- 5901 Mar, [facility] [id number] [address]- 2366 Mar, Adrenal mass 255.9 [facility] [address] [address]- 1807 Mar, [facility] [address] [address]- 8746 Mar, Chronic sore throat 472.1 and Adrenal mass 255.9 [facility] [address], [place] [address]- 0833 Mar, [facility] [address], [place] [address]- 0447 Feb, [facility] [address] [address]- 4533 Feb, [facility] [address], [place] [address]- 6000 Feb, [facility] [address] [address]- 5893 Feb, [facility] [address] [address]- 3574 Feb, [facility] [id number] [address]- 6266 Feb, [facility] [id number] [address]- 0847 Feb, [facility] [id number] [address]- 7972 Feb, [facility] [address] [address]- 5091 Feb, [facility] [id number] [address]- 1326 January, Adrenal mass 255.9 ; Hypothyroidism 244.9 ; Chronic sore throat 472.1 ; Atrial fibrillation 427.31 ; Hypertension 401.9 ; Generalized anxiety disorder 300.02 ; Chronic pain 338.29 and COPD (chronic obstructive pulmonary disease) 496 [facility] [address] [address]- 7826 January, [facility] [address] [address]- 1976 January, [facility] [id number] [place] [address] 89547- 6066 January, Sinusitis 473.9 [facility] [id number] [address]- 1001 January, [facility] [id number] [address]- 0426 January, [facility] [id number] [address]- 3590 Dec, [facility] [address] [address]- 9321 Dec, [facility] [address], [place] [address]- 9718 Nov, [facility] [address] [address]- 0889 Nov, [facility] [address] [address]- 2994 Nov, [facility] [address] [address]- 6570 Nov, [facility] [address] [address]- 5302 Oct, [facility] [address] [address]- 0566 Oct, [facility] [address] [address]- 6916 Oct, [facility] [address] [address]- 5766 Oct, 2014 [facility] [place] [facility] [address] [id number] [place] [address]- 9906 Oct, 2014 [facility] [place] [facility] [address] [id number] [place] [address]- 4876 Oct, 2014 [facility] [place] [facility] [address] [facility] [place] [id number] [place] [address]- 2555 Oct, 2014 [facility] [place] [facility] [address] [id number] [place] [address]- 9892 Oct, 2014 [facility] [place] [facility] [address] [id number] [place] [address]- 5886 Oct, 2014 [facility] [place] [facility] [address] [facility] [place] [place] [id number] [place] [address]- 4285 Oct, 2014 [facility] [place] [facility] [address] [facility] [place] [id number] [place] [address]- 5337 Oct, 2014 [facility] [place] [facility] [address] [facility] [place] [id number] [place] [address]- 5140 Oct, 2014 [facility] [place] [facility] [address] [facility] [place] [id number] [place] [address]- 1833 Oct, 2014 [facility] [place] [facility] [address] [facility] [place] [id number] [place] [address]- 8261 Oct, 2014 [facility] [place] [facility] [address] [facility] [id number] [address]- 3840 Oct, 2014 [facility] [place] [facility] [address] [facility] [place] [id number] [place] [address]- 2544 Oct, 2014 [facility] [place] [facility] [address] [facility] [id number] [address]- 2672 Oct, 2014 [facility] [place] [facility] [address] [facility] [place] [id number] [place] [address]- 7726 Oct, 2014 [facility] [place] [facility] [address] [facility] [id number] [place] [address]- 1576 Sep, [facility] [address] [facility] [id number] [place] [address]- 6237 Sep, [facility] [address] [facility] [id number] [address]- 1536 May, IMMUNIZATIONS No Known Immunizations SOCIAL HISTORY Never Assessed REASON FOR VISIT medication refill PLAN OF CARE VITAL SIGNS MEDICATIONS Medication Instructions Dosage Frequency Start Date End Date Duration Status Duloxetine HCl 60 mg Orally Twice a day 1 capsule 12h 30 Active Albuterol Sulfate (2.5 MG/3ML) 0.083% USE 1 VIAL ( 3 ML ) EVERY 4 HOURS NEEDED Active Incruse Ellipta 62.5 mcg/inh 1 puff Once a day Inhalation Active Furosemide 20 mg TAKE 1 TABLET BY MOUTH EVERY DAY NEEDED 30 Active Symbicort 160-4.5 mcg/act inhale 2 puffs by inhalation route 2 times per day in the morning and evening Nov, Active RESULTS No Results PROCEDURES No Known [...]
--- OUTSIDE RECORDS SUMMARY | 2018-06-29 09:00 | XMS REPORT ---
Author Author FABIANA SCHUMACHER Organization [facility] Address [address] 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 Active 61106015 Problem Drug induced constipation K59.03 Active 929088211902013 Problem Primary insomnia F51.01 Active 0930522 Problem Chronic pain syndrome G89.4 Active 949069606 Problem T12 compression fracture S22.080A Active 402247549 Problem Other nonspecific abnormal finding of lung field R91.8 Resolved 825053154 Problem Irritable bowel syndrome without diarrhea K58.9 Active 07560218 Problem 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 Active 946578598 Problem Tobacco use Z72.0 Active 753367140 Problem Nocturnal hypoxia G47.34 Active 670097107 Problem Essential hypertension I10 Active 49986493 Problem Hypothyroidism, unspecified hypothyroidism type E03.9 Active 05732105 Problem 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 Active [id number] Problem Chronic obstructive pulmonary disease, unspecified COPD type J44.9 Active 02395511 Problem Other chronic pain G89.29 Active 46347338 ALLERGIES No Information ENCOUNTERS Encounter Location Date Diagnosis [facility] [address] [facility] [id number] [address] Apr, Hyperkalemia E87.5 [facility] [id number], [place] [address] Apr, [facility] [address], [place] [address] Apr, Sore throat J02.9 ; Chronic sore throat J31.2 ; Otalgia, bilateral H92.03 ; Other chronic pain G89.29 ; Paroxysmal atrial fibrillation I48.0 ; Essential hypertension I10 ; Hypothyroidism, unspecified hypothyroidism type E03.9 ; Fatigue, unspecified type R53.83 ; 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 and Acute non-recurrent pansinusitis J01.40 [facility] [address], [place] [address] Apr, Chronic pain syndrome G89.4 [facility] [address], [place] [address] Apr, [facility] [id number], [place] [address] Mar, [facility] [address], [place] [address] Mar, [facility] [address], [place] [address] Mar, Hypothyroidism, unspecified hypothyroidism type E03.9 [facility] [address], [place] [address] Mar, [facility] [address], [place] [address] 0[address] Mar, Chronic pain syndrome G89.4 [facility] [address], [place] [address] Mar, [facility] [address], [place] [address] 1569 Mar, Chronic pain syndrome G89.4 [facility] [address], [place] [address] 98[address] Mar, [facility] [id number], [place] [address] 9459 Mar, Chronic pain syndrome G89.4 and Other chronic pain G89.29 [facility] [id number] [place] [address]- 1911 Feb, Chronic obstructive pulmonary disease, unspecified COPD type J44.9 [facility] [address], [place] [address] 3[address] Feb, [facility] [id number] [place] [address] 76921- 6817 Feb, [facility] [id number] [place] [address] 22941- 8369 Feb, [facility] [id number] [place] [address] 09540- 4985 Feb, [facility] [id number] [place] [address] 01203- 4982 Feb, [facility] [id number] [place] [address] 87395- 7841 Feb, Other chronic pain G89.29 ; Rectal bleeding K62.5 and Chronic pain syndrome G89.4 [facility] [address] [place] [address] 87903- 4954 15 Feb, 2018 [facility] [address], [place] [address] 7236 14 Feb, 2018 [facility] [id number] [place] [address] 62422- 4760 05 Feb, 2018 Other chronic pain G89.29 ; Essential hypertension I10 ; Osteoporosis M81.0 ; Drug induced constipation K59.03 ; Chronic obstructive pulmonary disease, unspecified COPD type J44.9 ; Hypothyroidism, unspecified hypothyroidism type E03.9 ; 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 ; Right ear pain H92.01 and Sore throat J02.9 [facility] [address], [place] [address] 289[address] January, [facility] [id number] [place] [address] 89768- 5836 January, Low back pain M54.5 ; Other chronic pain G89.29 ; Pain in thoracic spine M54.6 and Neck pain M54.2 [facility] [address] [address]- 94[address] Dec, Low back pain M54.5 ; Other chronic pain G89.29 ; Pain in thoracic spine M54.6 and Neck pain M54.2 [place] [address] [address]- 42[address] Dec, 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 and Chronic obstructive pulmonary disease, unspecified COPD type J44.9 [place] [address] [address]- 7403 Dec, [place] [address] 24215- 2491 Dec, Hypothyroidism, unspecified hypothyroidism type E03.9 [facility] [address] [address]- 8282 Oct, Essential hypertension I10 [place] [id number] [place] [address] 14530- 9260 Oct, [facility] [id number] [place] [address] 39699- 2119 Sep, [facility] [address] [address]- 7465 Sep, 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 [place] [address] 59101- 6013 Aug, Drug induced constipation K59.03 [facility] [address] [address]45- 7069 Aug, [facility] [address] 61102- 7924 Jul, Other chronic pain G89.29 [facility] [id number] [place] [address] 56502- 4528 Jul, [facility] [address] [address]65- 9142 Jul, Encounter for immunization Z23 ; Well woman exam (no gynecological exam) Z00.00 ; Tobacco use Z72.0 and 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 [facility] [address] 6[address]- 8939 Jul, [facility] [address] 12581- 9806 Jul, Drug induced constipation K59.03 [place] [address] 15601- 5005 Jun, Chronic obstructive pulmonary disease, unspecified COPD type J44.9 ; Tobacco use Z72.0 ; Hypothyroidism, unspecified hypothyroidism type E03.9 ; Other chronic pain G89.29 ; Drug induced constipation K59.03 and COPD exacerbation J44.1 [facility] [address] [address]- 2301 Jun, [facility] [id number] [place] [address] 81971- 9501 Jun, [facility] [address] 14098- 5667 Jun, Osteoporosis M81.0 [facility] [id number] [place] [address] 13322- 9981 Jun, [facility] [address] 64947- 8199 Jun, Other chronic pain G89.29 [facility] [address] 74222- 6431 Jun, Other chronic pain G89.29 [facility] [address] [place] [address]- 0206 Jun, Hypothyroidism, unspecified hypothyroidism type E03.9 [facility] [id number] [place] [address] 73492- 9360 Jun, [facility] [id number] [place] [address] 14666- 3981 May, [facility] [id number] [place] [address] 64361- 4759 May, COPD exacerbation J44.1 ; Pain of left lower extremity M79.605 ; Burn T30.0 ; Fatigue, unspecified type R53.83 ; Anemia, unspecified type D64.9 ; Adverse effect of other opioids, initial encounter T40.2X5A and Drug induced constipation K59.03 [facility] [id number] [place] [address] 36786- 2109 May, [facility] [id number] [place] [address] 82990- 5113 May, Burn T30.0 [facility] [id number] [place] [address] 43368- 1952 18 May, 2017 Other chronic pain G89.29 and Burn T30.0 [facility] [id number] [place] [address] 49185- 7771 14 May, 2017 Other chronic pain G89.29 [facility] [id number] [place] [address] 40649- 9124 Apr, [facility] [id number] [place] [address] 46242- 6064 Apr, [facility] [id number] [place] [address] 12863- 3380 Apr, [facility] [id number] [place] [address] 15103- 9090 Apr, [facility] [id number] [place] [address] 73633- 8915 Apr, Other chronic pain G89.29 [place] [address] 21280- 2617 15 Apr, 2017 Fatigue, unspecified type R53.83 ; Hypothyroidism, unspecified hypothyroidism type E03.9 ; Other chronic pain G89.29 ; Essential hypertension I10 ; Persistent atrial fibrillation I48.1 ; Chronic obstructive pulmonary disease, unspecified COPD type J44.9 ; Nocturnal hypoxia G47.34 ; Irritable bowel syndrome without diarrhea K58.9 ; Hyponatremia E87.1 ; Osteoporosis M81.0 and Primary insomnia F51.01 [place] [address] 552[address]- 2276 Feb, [address] [address]- 8960 January, [address] 24262- 0120 Oct, Essential hypertension I10 [address] 79373- 9499 Sep, Shortness of breath R06.02 ; COPD with exacerbation J44.1 and Weakness R53.[address] 41436- 5329 Sep, Drug-induced constipation K59.03 and Allergic rhinitis, unspecified allergic rhinitis trigger, unspecified rhinitis seasonality J30.[address] 57841- 0136 Sep, [place] [address] 45068- 2445 Sep, [address] 35397- 5890 Sep, [address] 45131- 5136 Jul, [address] 65919- 2140 Jul, Other chronic pain G89.29 ; Hematuria R31.9 ; Screening for breast cancer Z12.39 ; Anxiety F41.9 ; Primary insomnia F51.01 ; Drug-induced constipation K59.03 and Encounter for immunization Z23 [address] 40380- 7870 Jul, 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 98482- 0900 Jun, 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 and Hyponatremia E87.[address] 04743- 3694 Jun, 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 and Hyponatremia E87.[address] 87643- 8470 May, Hyponatremia E87.[address] 41939- 7787 May, Essential hypertension I10 ; Tobacco use Z72.0 ; Hyponatremia E87.1 ; Allergic rhinitis, unspecified allergic rhinitis trigger, unspecified rhinitis seasonality J30.9 and Osteoporosis M81.[address] 09775- 2394 Mar, [address] 62809- 7852 Mar, [address] 23367- 5282 Mar, Hyponatremia E87.[address] 41315- 5001 Feb, Essential hypertension I10 ; Hypothyroidism, unspecified [...] Concern about skin disease without diagnosis Z71.1 [facility] [id number] [place] [address] 50698- 6760 Feb, [facility] [address] 69152- 9140 Feb, Other nonspecific abnormal finding of lung field R91.8 [facility] [address] 47719- 1433 Dec, [facility] [address] 10905- 6242 Dec, [facility] [address] 26305- 5969 Nov, [facility] [address] 50826- 5695 Nov, [facility] [id number] [place] [address] 38673- 0083 Oct, [facility] [id number] [place] [address] 62365- 1554 Oct, [facility] [id number] [place] [address] 49117- 2232 Oct, [facility] [id number] [place] [address] 99569- 7405 Aug, Chronic obstructive pulmonary disease, unspecified COPD type J44.9 [facility] [address] 67771- 0116 14 Aug, 2015 [facility] [id number] [place] [address] 48416- 4701 10 Aug, 2015 Rectal bleeding K62.5 and GERD (gastroesophageal reflux disease) K21.9 [facility] [address] [place] [address]- 1683 Jul, [facility] [address] 80415- 0909 Jul, 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 [facility] [address] 23994- 9758 Jun, [facility] [address] 12024- 2505 Jun, [facility] [address] 48499- 0363 23 May, 2015 Adrenal mass 255.9 and Abnormal dexamethasone suppression test 794.6 [facility] [address] 86586- 6359 21 May, 2015 Adrenal mass 255.9 [facility] [address] 69879- 5099 May, [facility] [address] 76194- 0466 18 May, 2015 Pneumonia 486 and COPD (chronic obstructive pulmonary disease) 496 [facility] [address] 97791- 1401 17 May, 2015 [facility] [id number] [place] [address] 95429- 9618 14 May, 2015 [facility] [address] 79066- 7213 11 May, 2014 [facility] [id number] [place] [address] 72050- 4378 10 May, 2014 [facility] [address] 45797- 9850 09 May, 2014 [facility] [id number] [place] [address] 06610- 5826 08 May, 2014 [facility] [address] 37841- 3815 May, Adrenal mass 255.9 [facility] [address], [place] [address]- 6505 Apr, Adrenal mass 255.9 ; Hypothyroidism 244.9 ; Chronic sore throat 472.1 ; Atrial fibrillation 427.31 ; Hypertension 401.9 ; Generalized anxiety disorder 300.02 ; Chronic pain 338.29 and COPD (chronic obstructive pulmonary disease) 496 [facility] [id number] [place] [address] 59871- 0732 Apr, [facility] [id number] [place] [address] 24233- 2177 Apr, [facility] [address] 94587- 0160 Mar, [facility] [id number] [place] [address] 19942- 2307 Mar, Adrenal mass 255.9 [facility] [id number] [place] [address] 64519- 9283 Mar, [facility] [id number] [place] [address] 81836- 6200 Mar, Chronic sore throat 472.1 and Adrenal mass 255.9 [facility] [id number] [place] [address] 21262- 0100 Mar, [facility] [id number] [place] [address] 98711- 4553 Feb, [facility] [id number] [place] [address] 84169- 1242 Feb, [facility] [id number] [place] [address] 01040- 6035 Feb, [facility] [id number] [place] [address] 00506- 4605 Feb, [facility] [id number] [place] [address] 73722- 1554 Feb, [facility] [address], [place] [address]- 6266 Feb, [facility] [address], [place] [address]- 6256 Feb, [facility] [address], [place] [address]- 1880 Feb, [facility] [id number] [place] [address] 30377- 7899 Feb, [facility] [address], [place] [address]- 4100 January, Adrenal mass 255.9 ; Hypothyroidism 244.9 ; Chronic sore throat 472.1 ; Atrial fibrillation 427.31 ; Hypertension 401.9 ; Generalized anxiety disorder 300.02 ; Chronic pain 338.29 and COPD (chronic obstructive pulmonary disease) 496 [facility] [address], [place] [address]- 0139 January, [facility] [address], [place] [address]- 3157 January, [facility] [id number] [place] [address] 024967- 4292 January, Sinusitis 473.9 [facility] [address], [place] [address]- 9365 January, [facility] [address], [place] [address]- 4346 January, [facility] [address], [place] [address]- 3141 Dec, [facility] [address], [place] [address]- 5193 Dec, [facility] [address], [place] [address]- 0276 Nov, [facility] [address], [place] [address]- 1912 Nov, [facility] [place] [facility] [address] [id number] [place] [address]- 1750 Nov, [facility] [place] [facility] [address] [facility] [id number] [place] [address]- 6256 Nov, 2014 [facility] [place] [facility] [address] [facility] [id number] [place] [address]- 9436 Oct, 2014 [facility] [place] [facility] [address] [facility] [id number] [place] [address]- 5863 Oct, 2014 [facility] [place] [facility] [address] [facility] [id number] [place] [address]- 7748 Oct, 2014 [facility] [place] [facility] [address] [facility] [id number] [place] [address]- 6096 Oct, 2014 [facility] [place] [facility] [address] [facility] [id number] [place] [address]- 1726 Oct, 2014 [facility] [place] [facility] [address] [facility] [id number] [place] [address]- 1805 Oct, 2014 [facility] [place] [facility] [address] [facility] [id number] [place] [address]- 7036 Oct, 2014 [facility] [place] [facility] [address] [facility] [id number] [place] [address]- 5477 Oct, 2014 [facility] [place] [facility] [address] [facility] [id number] [place] [address]- 8878 Oct, 2014 [facility] [place] [facility] [address] [facility] [id number] [place] [address]- 1214 Oct, 2014 [facility] [place] [facility] [address] [facility] [id number] [place] [address]- 0406 Oct, 2014 [facility] [place] [facility] [address] [facility] [id number] [place] [address]- 5187 Oct, 2014 [facility] [place] [facility] [address] [facility] [id number] [place] [address]- 3726 Oct, 2014 [facility] [place] [facility] [id number], [place] [address]- 1673 Oct, [facility] [id number], [place] [address]- 0462 Oct, [facility] [address] 1079 Oct, [facility] [address], [place] [address]- 2438 Oct, [facility] [address] 1339 Oct, [facility] [address], [place] [address]- 8620 Sep, [facility] [address], [place] [address]- 9216 Sep, [facility] [address], [place] [address]- 5772 May, IMMUNIZATIONS No Known Immunizations SOCIAL HISTORY Never Assessed REASON FOR VISIT Urgent nurse call PLAN OF CARE VITAL SIGNS MEDICATIONS [...]
--- OUTSIDE RECORDS SUMMARY | 2018-06-29 09:01 | XMS REPORT ---
Author Author SHANICE OBINNA [facility] Address [address] [place] [address] Care Team Providers Care Director Of Veterans Affairs Name Role Phone OBINNA PRASAD Unavailable PROBLEMS Type Condition ICD9-CM Code [id number] Code Onset Dates Condition Status SNOMED Code Problem Other chronic pain G89.29 Active 78305780 Problem Rectal bleeding K62.5 Active 04415772 Problem 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 Active [id number] Problem Chronic pain syndrome G89.4 Active 494253509 Problem Anxiety F41.9 Active 06551045 Problem T12 compression fracture S22.080A Active 191470664 Problem Allergic rhinitis, unspecified allergic rhinitis trigger, unspecified rhinitis seasonality J30.9 Active 26663867 Problem Osteoporosis M81.0 Active 29279690 Problem Drug induced constipation K59.03 Active 854492208456217 Problem Primary insomnia F51.01 Active 0606597 Problem Other nonspecific abnormal finding of lung field R91.8 Resolved 677103203 Problem Irritable bowel syndrome without diarrhea K58.9 Active 37339498 Problem 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 Active 526621707 Problem Tobacco use Z72.0 Active 217805998 Problem Chronic obstructive pulmonary disease, unspecified COPD type J44.9 Active 80153764 Problem Nocturnal hypoxia G47.34 Active 704995463 Problem Persistent atrial fibrillation I48.1 Active 011930567 Problem Essential hypertension I10 Active 58760841 Problem Hypothyroidism, unspecified hypothyroidism type E03.9 Active 57607821 Problem 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 Active 28955080 ALLERGIES No Information ENCOUNTERS Encounter Location Date Diagnosis [facility] [address] [facility] [id number], [place] [address] Apr, [facility] [address] [facility] [id number], [place] [address] 3540 Apr, Chronic pain syndrome G89.4 [facility] [address] [facility] [id number], [place] [address] 9028 Apr, [facility] [address], [place] [address] 4666 Mar, [facility] [id number], [place] [address] 2364 Mar, [facility] [id number] [place] [address] 95468- 5655 Mar, Hypothyroidism, unspecified hypothyroidism type E03.9 [facility] [address] [facility] [id number] [place] [address] 59852- 4943 Mar, [facility] [id number] [place] [address] 21180- 9099 Mar, Chronic pain syndrome G89.4 [facility] [id number] [place] [address] 26581- 9156 Mar, [facility] [id number] [place] [address] 58330- 7203 Mar, Chronic pain syndrome G89.4 [facility] [address], [place] [address] 0771 Mar, [facility] [address], [place] [address]- 8539 Mar, Chronic pain syndrome G89.4 and Other chronic pain G89.29 [facility] [address], [place] [address] 0327 Feb, Chronic obstructive pulmonary disease, unspecified COPD type J44.9 [facility] [address] [facility] [id number], [place] [address] 7435 Feb, [facility] [id number], [place] [address]- 9524 Feb, [facility] [address], [place] [address]- 9648 Feb, [facility] [address], [place] [address]- 8322 Feb, [facility] [address], [place] [address]- 7411 Feb, [facility] [address], [place] [address]- 6193 Feb, Other chronic pain G89.29 ; Rectal bleeding K62.5 and Chronic pain syndrome G89.4 [facility] [id number] [place] [address] 70931- 8711 15 Feb, 2018 [facility] [id number] [place] [address] 26873- 5900 Feb, [facility] [address] [place] [address] 87449- 7686 05 Feb, 2018 Other chronic pain G89.29 ; Essential hypertension I10 ; Osteoporosis M81.0 ; Drug induced constipation K59.03 ; Chronic obstructive pulmonary disease, unspecified COPD type J44.9 ; Hypothyroidism, unspecified hypothyroidism type E03.9 ; 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 ; Right ear pain H92.01 and Sore throat J02.9 [facility] [address], [place] [address]- 6877 January, [facility] [address], [place] [address]- 8142 January, Low back pain M54.5 ; Other chronic pain G89.29 ; Pain in thoracic spine M54.6 and Neck pain M54.2 [facility] [address], [place] [address]- 0773 Dec, Low back pain M54.5 ; Other chronic pain G89.29 ; Pain in thoracic spine M54.6 and Neck pain M54.2 [facility] [address], [place] [address]- 7939 Dec, 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 and Chronic obstructive pulmonary disease, unspecified COPD type J44.9 [place] [id number] [place] [address] 20156- 6178 Dec, [place] [address] [address]77- 2919 Dec, Hypothyroidism, unspecified hypothyroidism type E03.9 [place] [address] [address]69- 2398 Oct, Essential hypertension I10 [address] [address] 63161- 2032 Oct, [place] [address] 67497- 5031 Sep, [place] [address] [address]35- 3146 Sep, 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 [place] [address] 32812- 4953 Aug, Drug induced constipation K59.03 [address] [address] 14538- 5754 Aug, [place] [address] 97490- 7466 Jul, Other chronic pain G89.29 [place] [address] 35691- 5779 Jul, [place] [id number] [place] [address] 48181- 6142 08 Jul, 2017 Well woman exam (no gynecological exam) Z00.00 ; Encounter for immunization Z23 ; Tobacco use Z72.0 and 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 [facility] [id number] [place] [address] 21167- 6040 02 Jul, 2017 [place] [address] 67250- 5880 Jul, Drug induced constipation K59.03 [facility] [address], [place] [address]- 1547 Jun, Chronic obstructive pulmonary disease, unspecified COPD type J44.9 ; Tobacco use Z72.0 ; Hypothyroidism, unspecified hypothyroidism type E03.9 ; Other chronic pain G89.29 ; Drug induced constipation K59.03 and COPD exacerbation J44.1 [facility] [id number] [place] [address] 00943- 6309 Jun, [facility] [id number] [place] [address] 99205- 3701 Jun, [facility] [id number] [place] [address] 62270- 1089 Jun, Osteoporosis M81.0 [facility] [id number] [place] [address] 58997- 8782 Jun, [facility] [id number] [place] [address] 32126- 5074 Jun, Other chronic pain G89.29 [facility] [id number] [place] [address] 89787- 7058 Jun, Other chronic pain G89.29 [facility] [id number] [place] [address] 45723- 9796 Jun, Hypothyroidism, unspecified hypothyroidism type E03.9 [facility] [id number] [place] [address] 32925- 0506 Jun, [facility] [address] [place] [address] 72558- 9446 May, [facility] [id number] [place] [address] 40406- 0566 May, COPD exacerbation J44.1 ; Pain of left lower extremity M79.605 ; Burn T30.0 ; Fatigue, unspecified type R53.83 ; Anemia, unspecified type D64.9 ; Adverse effect of other opioids, initial encounter T40.2X5A and Drug induced constipation K59.03 [facility] [address], [place] [address]- 1298 May, [facility] [id number] [place] [address] 55157- 6078 May, Burn T30.0 [facility] [id number] [place] [address] 97192- 7553 18 May, 2017 Other chronic pain G89.29 and Burn T30.0 [facility] [id number] [place] [address] 61151- 4247 14 May, 2017 Other chronic pain G89.29 [facility] [id number] [place] [address] 11512- 4091 Apr, [facility] [id number] [place] [address] 51097- 3644 Apr, [facility] [id number] [place] [address] 97766- 9171 Apr, [facility] [id number] [place] [address] 44107- 3320 Apr, [facility] [id number] [place] [address] 78571- 7496 Apr, Other chronic pain G89.29 [facility] [id number] [place] [address] 95738- 3471 Apr, Fatigue, unspecified type R53.83 ; Hypothyroidism, unspecified hypothyroidism type E03.9 ; Other chronic pain G89.29 ; Essential hypertension I10 ; Persistent atrial fibrillation I48.1 ; Chronic obstructive pulmonary disease, unspecified COPD type J44.9 ; Nocturnal hypoxia G47.34 ; Irritable bowel syndrome without diarrhea K58.9 ; Hyponatremia E87.1 ; Osteoporosis M81.0 and Primary insomnia F51.01 [facility] [address] [place] [address] 64777- 8365 Feb, [facility] [id number] [place] [address] 24385- 9092 January, [address] 26703- 0094 Oct, Essential hypertension I10 [address] 03275- 4789 Sep, Shortness of breath R06.02 ; COPD with exacerbation J44.1 and Weakness R53.[address] 84724- 6632 Sep, Drug-induced constipation K59.03 and Allergic rhinitis, unspecified allergic rhinitis trigger, unspecified rhinitis seasonality J30.[address] 18609- 1543 Sep, [address] 06623- 9235 Sep, [address] 06064- 9887 Sep, [address] 12396- 6539 Jul, [address] 80733- 8743 Jul, Other chronic pain G89.29 ; Hematuria R31.9 ; Screening for breast cancer Z12.39 ; Anxiety F41.9 ; Primary insomnia F51.01 ; Drug-induced constipation K59.03 and Encounter for immunization Z23 [address] [id number] [place] [address] 81887- 6479 Jul, 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 31278- 6118 Jun, 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 and Hyponatremia E87.[address] 59903- 1488 Jun, 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 and Hyponatremia E87.1 [place] [id number] [place] [address] 17398- 0387 May, Hyponatremia E87.1 [place] [id number] [place] [address] 85474- 1233 May, Essential hypertension I10 ; Tobacco use Z72.0 ; Hyponatremia E87.1 ; Allergic rhinitis, unspecified allergic rhinitis trigger, unspecified rhinitis seasonality J30.9 and Osteoporosis M81.0 [place] [id number] [place] [address] 91524- 9464 Mar, [place] [address] 94913- 8084 Mar, [place] [id number] [place] [address] 43928- 4878 Mar, Hyponatremia E87.1 [place] [id number] [place] [address] 93486- 2801 Feb, Essential hypertension I10 ; Hypothyroidism, unspecified [...] Concern about skin disease without diagnosis Z71.1 [place] [place] [address] [place] [address] 63135- 9325 Feb, [id number] [place] [address] 44129- 5191 Feb, Other nonspecific abnormal finding of lung field R91.8 [place] [id number] [place] [address] 01451- 9124 Dec, [address] [place] [address] 57482- 1715 Dec, [facility] [id number] [place] [address] 36002- 6295 Nov, [facility] [id number] [place] [address] 99348- 9366 Nov, [facility] [id number] [place] [address] 14488- 5687 Oct, [facility] [id number] [place] [address] 25119- 0602 Oct, [facility] [id number] [place] [address] 49551- 9008 Oct, [facility] [id number] [place] [address] 71436- 5740 Aug, Chronic obstructive pulmonary disease, unspecified COPD type J44.9 [facility] [id number] [place] [address] 68012- 9248 Aug, [facility] [id number] [place] [address] 01862- 3799 Aug, Rectal bleeding K62.5 and GERD (gastroesophageal reflux disease) K21.9 [facility] [id number] [place] [address] 61186- 5444 Jul, [facility] [id number] [place] [address] 35254- 1311 Jul, 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 [facility] [id number] [place] [address] 14381- 6407 Jun, [facility] [id number] [place] [address] 36284- 0397 Jun, [facility] [id number] [place] [address] 37672- 7527 23 May, 2015 Adrenal mass 255.9 and Abnormal dexamethasone suppression test 794.6 [facility] [address], [place] [address]- 4312 May, Adrenal mass 255.9 [facility] [id number] [place] [address] 65798- 4462 21 May, 2015 [facility] [address] [place] [address] 66764- 7490 18 May, 2015 Pneumonia 486 and COPD (chronic obstructive pulmonary disease) 496 [facility] [id number] [place] [address] 38677- 7296 17 May, 2014 [facility] [id number] [place] [address] 71812- 4128 14 May, 2015 [facility] [id number] [place] [address] 82065- 7190 11 May, 2015 [facility] [id number] [place] [address] 44190- 7705 10 May, 2015 [facility] [address] [place] [address] 07471- 5331 09 May, 2015 [facility] [address] [place] [address] 72201- 5508 08 May, 2015 [facility] [address] [place] [address] 46192- 4736 04 May, 2015 Adrenal mass 255.9 [facility] [address] [place] [address] 49753- 4705 Apr, Adrenal mass 255.9 ; Hypothyroidism 244.9 ; Chronic sore throat 472.1 ; Atrial fibrillation 427.31 ; Hypertension 401.9 ; Generalized anxiety disorder 300.02 ; Chronic pain 338.29 and COPD (chronic obstructive pulmonary disease) 496 [facility] [address] [place] [address] 52954- 4235 Apr, [facility] [address] [place] [address] 62730- 8104 Apr, [facility] [id number] [place] [address] 83819- 5484 Mar, [facility] [id number], [place] [address]- 3388 Mar, Adrenal mass 255.9 [facility] [address], [place] [address]- 1421 Mar, [facility] [address], [place] [address]- 7319 Mar, Chronic sore throat 472.1 and Adrenal mass 255.9 [facility] [address], [place] [address]- 8856 Mar, [facility] [address], [place] [address]- 1805 Feb, [facility] [address], [place] [address]- 5283 Feb, [facility] [address], [place] [address]- 3003 Feb, [facility] [address], [place] [address]- 8417 Feb, [facility] [address], [place] [address]- 7076 Feb, [facility] [id number], [place] [address]- 3578 Feb, [facility] [id number], [place] [address]- 3015 Feb, [facility] [id number], [place] [address]- 7653 Feb, [facility] [address], [place] [address]- 6462 Feb, [facility] [id number], [place] [address]- 2755 January, Adrenal mass 255.9 ; Hypothyroidism 244.9 ; Chronic sore throat 472.1 ; Atrial fibrillation 427.31 ; Hypertension 401.9 ; Generalized anxiety disorder 300.02 ; Chronic pain 338.29 and COPD (chronic obstructive pulmonary disease) 496 [facility] [address], [place] [address]- 6196 January, [facility] [address], [place] [address]- 5316 January, [facility] [id number] [place] [address] 74059- 5240 January, Sinusitis 473.9 [facility] [address] [address]- 6457 January, [facility] [address] [address]- 8506 January, [facility] [address] [address]- 1521 Dec, [facility] [address], [place] [address]- 6960 Dec, [facility] [address], [place] [address]- 6354 Nov, [facility] [address], [place] [address]- 3117 Nov, [facility] [address], [place] [address]- 8429 Nov, [facility] [address], [place] [address]- 8916 Nov, [facility] [address], [place] [address]- 9849 Oct, [facility] [address], [place] [address]- 3036 Oct, [facility] [address], [place] [address]- 1506 Oct, [facility] [address] [place] [address]- 1506 Oct, 2014 [facility] [place] [facility] [address] [id number] [address]- 7926 Oct, 2014 [facility] [place] [facility] [address] [id number] [place] [address]- 1506 Oct, 2014 [facility] [place] [facility] [address] [facility] [id number] [place] [address]- 0226 Oct, 2014 [facility] [place] [facility] [address] [id number] [place] [address]- 3791 Oct, 2014 [facility] [place] [facility] [address] [id number] [place] [address]- 7026 Oct, 2014 [facility] [place] [facility] [address] [facility] [id number] [place] [address]- 4815 Oct, 2014 [facility] [place] [facility] [address] [facility] [id number] [place] [address]- 9746 Oct, 2014 [facility] [place] [facility] [address] [facility] [id number] [place] [address]- 6995 Oct, 2014 [facility] [place] [facility] [address] [facility] [id number] [place] [address]- 6262 Oct, 2014 [facility] [place] [facility] [address] [facility] [id number] [place] [address]- 8214 Oct, 2014 [facility] [place] [facility] [address] [facility] [id number], [place] [address]- 0422 Oct, 2014 [facility] [place] [facility] [address] [facility] [id number] [place] [address]- 2543 Oct, 2014 [facility] [place] [facility] [address] [facility] [id number], [place] [address]- 3551 Oct, 2014 [facility] [place] [facility] [address] [facility] [id number] [place] [address]- 6664 Oct, 2014 [facility] [place] [facility] [address] [facility] [id number] [place] [address]- 5356 Sep, [facility] [address] [facility] [id number] [place] [address]- 5827 Sep, [facility] [address] [facility] [id number] [place] [address]- 2174 May, IMMUNIZATIONS No Known Immunizations SOCIAL HISTORY Never Assessed REASON FOR VISIT Requests return call PLAN OF CARE VITAL SIGNS MEDICATIONS Medication Instructions Dosage Frequency Start Date End Date Duration Status Voltaren 1 % Transdermal four times daily 4 grams as needed to both knees Feb, Active Nicotine 21 MG/24HR Transdermal Once a day 1 patch to skin 24h Feb, Active RESULTS No Results PROCEDURES No Known [...]
--- OUTSIDE RECORDS SUMMARY | 2018-06-29 09:01 | XMS REPORT ---
Author Author SHANICE OBINNA [facility] Address [address] [place] [address] Care Team Providers [facility] Technician Name Role Phone OBINNA PRASAD Unavailable PROBLEMS Type Condition ICD9-CM Code PRW31-WR Code Onset Dates Condition Status SNOMED Code Problem Other chronic pain G89.29 Active 88200531 Problem Rectal bleeding K62.5 Active 20041869 Problem 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 Active 7110193746009796 Problem Chronic pain syndrome G89.4 Active 255352724 Problem Anxiety F41.9 Active 51004101 Problem T12 compression fracture S22.080A Active 930810815 Problem Allergic rhinitis, unspecified allergic rhinitis trigger, unspecified rhinitis seasonality J30.9 Active 35833687 Problem Osteoporosis M81.0 Active 24026124 Problem Drug induced constipation K59.03 Active 130682360993875 Problem Primary insomnia F51.01 Active 8162461 Problem Other nonspecific abnormal finding of lung field R91.8 Resolved 982951626 Problem Irritable bowel syndrome without diarrhea K58.9 Active 23539768 Problem 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 Active 084647735 Problem Tobacco use Z72.0 Active 515445020 Problem Chronic obstructive pulmonary disease, unspecified COPD type J44.9 Active 24413374 Problem Nocturnal hypoxia G47.34 Active 321818761 Problem Persistent atrial fibrillation I48.1 Active 610295078 Problem Essential hypertension I10 Active 80826394 Problem Hypothyroidism, unspecified hypothyroidism type E03.9 Active 84677890 Problem 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 [id number] [address] Apr, [facility] [address] [facility] [id number] [address] 93[address] Apr, Chronic pain syndrome G89.4 [facility] [address] [facility] [id number], [place] [address] Apr, [facility] [address] [address] 79[address] Mar, [facility] [id number] [address] 5492 Mar, [facility] [id number] [place] [address] 57300- 9822 Mar, Hypothyroidism, unspecified hypothyroidism type E03.9 [facility] [address] [facility] [id number] [place] [address] 42025- 5760 Mar, [facility] [id number] [place] [address] 54169- 1231 Mar, Chronic pain syndrome G89.4 [facility] [id number] [place] [address] 80610- 6116 Mar, [facility] [id number] [place] [address] 93281- 7922 Mar, Chronic pain syndrome G89.4 [facility] [address], [place] [address] 3227 Mar, [facility] [address], [place] [address] 3171 Mar, Chronic pain syndrome G89.4 and Other chronic pain G89.29 [facility] [address], [place] [address] 5183 Feb, Chronic obstructive pulmonary disease, unspecified COPD type J44.9 [facility] [address] [facility] [id number] [address] 0993 Feb, [facility] [id number] [address] 2140 Feb, [facility] [address], [place] [address]- 5172 Feb, [facility] [address] [address]- 8076 Feb, [facility] [address], [place] [address]- 6764 Feb, [facility] [address] [address] 2450 Feb, Other chronic pain G89.29 ; Rectal bleeding K62.5 and Chronic pain syndrome G89.4 [facility] [id number] [place] [address] 44354- 5096 15 Feb, 2018 [facility] [id number] [place] [address] 55368- 5670 Feb, [facility] [id number] [place] [address] 76465- 9379 05 Feb, 2018 Other chronic pain G89.29 ; Essential hypertension I10 ; Osteoporosis M81.0 ; Drug induced constipation K59.03 ; Chronic obstructive pulmonary disease, unspecified COPD type J44.9 ; Hypothyroidism, unspecified hypothyroidism type E03.9 ; 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 ; Right ear pain H92.01 and Sore throat J02.9 [facility] [address] [address] 6014 January, [facility] [address] [address] 2884 January, Low back pain M54.5 ; Other chronic pain G89.29 ; Pain in thoracic spine M54.6 and Neck pain M54.2 [facility] [address], [place] [address]- 5984 Dec, Low back pain M54.5 ; Other chronic pain G89.29 ; Pain in thoracic spine M54.6 and Neck pain M54.2 [facility] [address], [place] [address]- 4081 Dec, 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 and Chronic obstructive pulmonary disease, unspecified COPD type J44.9 [facility] [id number] [place] [address] 57987- 2845 Dec, [facility] [facility] [address] 37882- 6628 Dec, Hypothyroidism, unspecified hypothyroidism type E03.9 [place] [address] 99538- 7062 Oct, Essential hypertension I10 [place] [address] 79416- 5838 Oct, [place] [address] 55757- 4924 Sep, [place] [address] 96690- 8658 Sep, 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 [place] [address] 72754- 6977 Aug, Drug induced constipation K59.03 [facility] [address] 98484- 1862 Aug, [place] [address] 09321- 3622 Jul, Other chronic pain G89.29 [facility] [address] 80484- 5490 Jul, [facility] [id number] [place] [address] 09367- 4182 08 Jul, 2017 Well woman exam (no gynecological exam) Z00.00 ; Encounter for immunization Z23 ; Tobacco use Z72.0 and 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 [facility] [id number] [place] [address] 72137- 7951 02 Jul, 2017 [place] [facility] [address] 83873- 8844 Jul, Drug induced constipation K59.03 [facility] [address], [place] [address]- 1334 Jun, Chronic obstructive pulmonary disease, unspecified COPD type J44.9 ; Tobacco use Z72.0 ; Hypothyroidism, unspecified hypothyroidism type E03.9 ; Other chronic pain G89.29 ; Drug induced constipation K59.03 and COPD exacerbation J44.1 [facility] [id number] [place] [address] 56735- 1089 Jun, [facility] [id number] [place] [address] 98068- 7371 Jun, [facility] [id number] [place] [address] 39004- 0812 Jun, Osteoporosis M81.0 [facility] [id number] [place] [address] 46251- 6266 Jun, [facility] [id number] [place] [address] 06789- 5904 Jun, Other chronic pain G89.29 [facility] [id number] [place] [address] 59144- 0975 Jun, Other chronic pain G89.29 [facility] [id number] [place] [address] 80338- 6253 Jun, Hypothyroidism, unspecified hypothyroidism type E03.9 [facility] [id number] [place] [address] 81293- 9628 Jun, [facility] [address] [place] [address] 58007- 0579 May, [facility] [id number] [place] [address] 41651- 9295 May, COPD exacerbation J44.1 ; Pain of left lower extremity M79.605 ; Burn T30.0 ; Fatigue, unspecified type R53.83 ; Anemia, unspecified type D64.9 ; Adverse effect of other opioids, initial encounter T40.2X5A and Drug induced constipation K59.03 [facility] [address], [place] [address]- 4708 May, [facility] [id number] [place] [address] 06748- 3420 May, Burn T30.0 [facility] [id number] [place] [address] 71181- 5483 18 May, 2017 Other chronic pain G89.29 and Burn T30.0 [facility] [id number] [place] [address] 17299- 4214 14 May, 2017 Other chronic pain G89.29 [facility] [id number] [place] [address] 55025- 3479 Apr, [facility] [id number] [place] [address] 22373- 4737 Apr, [facility] [id number] [place] [address] 44649- 3924 Apr, [facility] [id number] [place] [address] 14267- 4538 Apr, [facility] [id number] [place] [address] 94928- 4178 Apr, Other chronic pain G89.29 [facility] [id number] [place] [address] 58608- 8398 Apr, Fatigue, unspecified type R53.83 ; Hypothyroidism, unspecified hypothyroidism type E03.9 ; Other chronic pain G89.29 ; Essential hypertension I10 ; Persistent atrial fibrillation I48.1 ; Chronic obstructive pulmonary disease, unspecified COPD type J44.9 ; Nocturnal hypoxia G47.34 ; Irritable bowel syndrome without diarrhea K58.9 ; Hyponatremia E87.1 ; Osteoporosis M81.0 and Primary insomnia F51.01 [facility] [address] [place] [address] 89690- 0645 Feb, [facility] [id number] [place] [address] 28883- 3164 January, [address] 62856- 6898 Oct, Essential hypertension I10 [address] 65261- 0639 Sep, Shortness of breath R06.02 ; COPD with exacerbation J44.1 and Weakness R53.[address] 19409- 9490 Sep, Drug-induced constipation K59.03 and Allergic rhinitis, unspecified allergic rhinitis trigger, unspecified rhinitis seasonality J30.[address] 61303- 7037 Sep, [address] 14216- 5268 Sep, [address] 51003- 9758 Sep, [address] 28118- 4696 Jul, [address] 68262- 0106 Jul, Other chronic pain G89.29 ; Hematuria R31.9 ; Screening for breast cancer Z12.39 ; Anxiety F41.9 ; Primary insomnia F51.01 ; Drug-induced constipation K59.03 and Encounter for immunization Z23 [address] [id number] [place] [address] 63657- 1314 Jul, 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 36651- 8953 Jun, 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 and Hyponatremia E87.[address] 24288- 5670 Jun, 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 and Hyponatremia E87.1 [place] [id number] [place] [address] 42134- 2020 May, Hyponatremia E87.1 [facility] [facility] [id number] [place] [address] 88910- 5161 May, Essential hypertension I10 ; Tobacco use Z72.0 ; Hyponatremia E87.1 ; Allergic rhinitis, unspecified allergic rhinitis trigger, unspecified rhinitis seasonality J30.9 and Osteoporosis M81.0 [place] [id number] [place] [address] 71649- 4508 Mar, [place] [address] 91633- 2432 Mar, [place] [id number] [place] [address] 87498- 5670 Mar, Hyponatremia E87.1 [place] [id number] [place] [address] 94234- 1983 Feb, Essential hypertension I10 ; Hypothyroidism, unspecified [...] Concern about skin disease without diagnosis Z71.1 [place] [address] [place] [address] 64337- 7164 Feb, [address] [id number] [place] [address] 04771- 4779 Feb, Other nonspecific abnormal finding of lung field R91.8 [place] [id number] [place] [address] 22920- 5606 Dec, [address] [place] [address] 22897- 5369 Dec, [facility] [id number] [place] [address] 04340- 9148 Nov, [facility] [id number] [place] [address] 45585- 0650 Nov, [facility] [id number] [place] [address] 17831- 8855 Oct, [facility] [id number] [place] [address] 23064- 2140 Oct, [facility] [id number] [place] [address] 61873- 5075 Oct, [facility] [id number] [place] [address] 38459- 6756 Aug, Chronic obstructive pulmonary disease, unspecified COPD type J44.9 [facility] [id number] [place] [address] 78696- 7291 Aug, [facility] [id number] [place] [address] 31725- 6094 Aug, Rectal bleeding K62.5 and GERD (gastroesophageal reflux disease) K21.9 [facility] [id number] [place] [address] 73084- 5648 Jul, [facility] [address] [place] [address] 18633- 7788 Jul, 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 [facility] [id number] [place] [address] 79013- 9025 Jun, [facility] [address] [place] [address] 98674- 5443 Jun, [facility] [id number] [place] [address] 10687- 8339 23 May, 2015 Adrenal mass 255.9 and Abnormal dexamethasone suppression test 794.6 [facility] [address] [address]- 8604 May, Adrenal mass 255.9 [facility] [id number] [place] [address] 61664- 2333 21 May, 2015 [facility] [address] [place] [address] 59235- 5114 18 May, 2015 Pneumonia 486 and COPD (chronic obstructive pulmonary disease) 496 [facility] [id number] [place] [address] 66808- 3328 17 May, 2014 [facility] [id number] [place] [address] 19333- 8652 14 May, 2015 [facility] [id number] [place] [address] 25106- 7357 11 May, 2015 [facility] [id number] [place] [address] 22229- 0430 10 May, 2015 [facility] [address] [place] [address] 47215- 9781 09 May, 2015 [facility] [address] [place] [address] 21672- 5334 08 May, 2015 [facility] [address] [place] [address] 09457- 8691 04 May, 2015 Adrenal mass 255.9 [facility] [address] [place] [address] 93712- 5535 Apr, Adrenal mass 255.9 ; Hypothyroidism 244.9 ; Chronic sore throat 472.1 ; Atrial fibrillation 427.31 ; Hypertension 401.9 ; Generalized anxiety disorder 300.02 ; Chronic pain 338.29 and COPD (chronic obstructive pulmonary disease) 496 [facility] [address] [place] [address] 85133- 9062 Apr, [facility] [address] [place] [address] 14066- 4204 Apr, [facility] [id number] [place] [address] 01436- 0276 Mar, [facility] [id number] [address]- 0016 Mar, Adrenal mass 255.9 [facility] [address], [place] [address]- 8625 Mar, [facility] [address], [place] [address]- 0395 Mar, Chronic sore throat 472.1 and Adrenal mass 255.9 [facility] [address], [place] [address]- 2749 Mar, [facility] [address], [place] [address]- 9851 Feb, [facility] [address] [address]- 1003 Feb, [facility] [address], [place] [address]- 8427 Feb, [facility] [address], [place] [address]- 1610 Feb, [facility] [address], [place] [address]- 2052 Feb, [facility] [id number] [address]- 0793 Feb, [facility] [id number] [address]- 7352 Feb, [facility] [id number] [address]- 2811 Feb, [facility] [address], [place] [address]- 8086 Feb, [facility] [id number] [address]- 7321 January, Adrenal mass 255.9 ; Hypothyroidism 244.9 ; Chronic sore throat 472.1 ; Atrial fibrillation 427.31 ; Hypertension 401.9 ; Generalized anxiety disorder 300.02 ; Chronic pain 338.29 and COPD (chronic obstructive pulmonary disease) 496 [facility] [address] [address]- 4586 January, [facility] [address] [address]- 6476 January, [facility] [id number] [place] [address] 56481- 9402 January, Sinusitis 473.9 [facility] [address] [address]- 7948 January, [facility] [address] [address]- 9926 January, [facility] [address] [address]- 7591 Dec, [facility] [address] [address]- 5135 Dec, [facility] [address] [address]- 8080 Nov, [facility] [address], [place] [address]- 8905 Nov, [facility] [address] [address]- 0732 Nov, [facility] [address] [address]- 6878 Nov, [facility] [address] [address]- 5210 Oct, [facility] [address], [place] [address]- 4816 Oct, [facility] [address] [address]- 6386 Oct, [facility] [address] [place] [address]- 4326 Oct, 2014 [facility] [place] [facility] [address] [id number] [place] [address]- 8876 Oct, 2014 [facility] [place] [facility] [address] [id number] [place] [address]- 9906 Oct, 2014 [facility] [place] [facility] [address] [facility] [id number] [place] [address]- 5660 Oct, 2014 [facility] [place] [facility] [address] [id number] [place] [address]- 8328 Oct, 2014 [facility] [place] [facility] [address] [id number] [place] [address]- 6816 Oct, 2014 [facility] [place] [facility] [address] [facility] [id number] [place] [address]- 4165 Oct, 2014 [facility] [place] [facility] [address] [facility] [id number] [place] [address]- 5257 Oct, 2014 [facility] [place] [facility] [address] [facility] [id number] [place] [address]- 5084 Oct, 2014 [facility] [place] [facility] [address] [facility] [id number] [place] [address]- 0208 Oct, 2014 [facility] [place] [facility] [address] [facility] [id number] [place] [address]- 7207 Oct, 2014 [facility] [place] [facility] [address] [facility] [id number] [address]- 3800 Oct, 2014 [facility] [place] [facility] [address] [facility] [id number] [place] [address]- 2542 Oct, 2014 [facility] [place] [facility] [address] [facility] [id number] [address]- 5127 Oct, 2014 [facility] [place] [facility] [address] [facility] [id number] [place] [address]- 5830 Oct, 2014 [facility] [place] [facility] [address] [facility] [id number] [place] [address]- 5219 Sep, [facility] [address] [facility] [id number] [place] [address]- 8524 Sep, [facility] [address] [facility] [id number] [place] [address]- 6827 May, IMMUNIZATIONS No Known Immunizations SOCIAL HISTORY [...]
--- OUTSIDE RECORDS SUMMARY | 2018-06-29 09:02 | XMS REPORT ---
Author Author SHANICE OBINNA [facility] Address [address] [place] [address] Care Team Providers Care Mathematical Scientist Name Role Phone OBINNA PRASAD Unavailable PROBLEMS Type Condition ICD9-CM Code XNL14-QR Code Onset Dates Condition Status SNOMED Code Problem Other chronic pain G89.29 Active 60416042 Problem Rectal bleeding K62.5 Active 07792987 Problem 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 Active 7876409408468977 Problem Chronic pain syndrome G89.4 Active 144661441 Problem Anxiety F41.9 Active 37589626 Problem T12 compression fracture S22.080A Active 283044667 Problem Allergic rhinitis, unspecified allergic rhinitis trigger, unspecified rhinitis seasonality J30.9 Active 79725431 Problem Osteoporosis M81.0 Active 19047836 Problem Drug induced constipation K59.03 Active 778463596402017 Problem Primary insomnia F51.01 Active 0281535 Problem Other nonspecific abnormal finding of lung field R91.8 Resolved 915571092 Problem Irritable bowel syndrome without diarrhea K58.9 Active 72571377 Problem 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 Active 594965035 Problem Tobacco use Z72.0 Active 067987482 Problem Chronic obstructive pulmonary disease, unspecified COPD type J44.9 Active 35310403 Problem Nocturnal hypoxia G47.34 Active 443767402 Problem Persistent atrial fibrillation I48.1 Active 327004808 Problem Essential hypertension I10 Active 64595404 Problem Hypothyroidism, unspecified hypothyroidism type E03.9 Active 35511186 Problem 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 Active 29594194 ALLERGIES No Information ENCOUNTERS Encounter Location Date Diagnosis [facility] [address] [facility] [id number] [address] Apr, [facility] [address] [facility] [id number], [place] [address] Apr, Chronic pain syndrome G89.4 [facility] [address] [facility] [id number], [place] [address] Apr, [facility] [address] [address] 27[address] Mar, [facility] [id number] [address] 0545 Mar, [facility] [id number] [place] [address] 05527- 1293 Mar, Hypothyroidism, unspecified hypothyroidism type E03.9 [facility] [address] [facility] [id number] [place] [address] 07829- 6112 Mar, [facility] [id number] [place] [address] 14535- 2815 Mar, Chronic pain syndrome G89.4 [facility] [id number] [place] [address] 95620- 8956 Mar, [facility] [id number] [place] [address] 24388- 3297 Mar, Chronic pain syndrome G89.4 [facility] [address], [place] [address] 9690 Mar, [facility] [address], [place] [address] 3491 Mar, Chronic pain syndrome G89.4 and Other chronic pain G89.29 [facility] [address], [place] [address] 9232 Feb, Chronic obstructive pulmonary disease, unspecified COPD type J44.9 [facility] [address] [facility] [id number], [place] [address] 3264 Feb, [facility] [id number] [address] 3074 Feb, [facility] [address], [place] [address]- 8684 Feb, [facility] [address], [place] [address]- 7033 Feb, [facility] [address], [place] [address]- 2716 Feb, [facility] [address], [place] [address]- 6550 Feb, Other chronic pain G89.29 ; Rectal bleeding K62.5 and Chronic pain syndrome G89.4 [facility] [id number] [place] [address] 40552- 0634 15 Feb, 2018 [facility] [id number] [place] [address] 78463- 6917 Feb, [facility] [id number] [place] [address] 46008- 1310 05 Feb, 2018 Other chronic pain G89.29 ; Essential hypertension I10 ; Osteoporosis M81.0 ; Drug induced constipation K59.03 ; Chronic obstructive pulmonary disease, unspecified COPD type J44.9 ; Hypothyroidism, unspecified hypothyroidism type E03.9 ; 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 ; Right ear pain H92.01 and Sore throat J02.9 [facility] [address] [address]- 0[address] January, [facility] [address], [place] [address]- 7924 January, Low back pain M54.5 ; Other chronic pain G89.29 ; Pain in thoracic spine M54.6 and Neck pain M54.2 [facility] [address], [place] [address]- 5236 Dec, Low back pain M54.5 ; Other chronic pain G89.29 ; Pain in thoracic spine M54.6 and Neck pain M54.2 [facility] [address], [place] [address]- 6255 Dec, 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 and Chronic obstructive pulmonary disease, unspecified COPD type J44.9 [place] [facility] [id number] [place] [address] 85304- 3476 Dec, [place] [address] 44204- 2869 Dec, Hypothyroidism, unspecified hypothyroidism type E03.9 [place] [address] 67389- 4151 Oct, Essential hypertension I10 [place] [address] 51551- 2381 Oct, [place] [address] 12127- 0251 Sep, [place] [address] 79566- 8711 Sep, 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 [place] [address] 31778- 1542 Aug, Drug induced constipation K59.03 [place] [address] 74745- 6512 Aug, [place] [address] 66034- 3740 10 Jul, 2017 Other chronic pain G89.29 [place] [address] 08322- 9437 Jul, [facility] [id number] [place] [address] 10227- 1139 Jul, Encounter for immunization Z23 ; Well woman exam (no gynecological exam) Z00.00 ; Tobacco use Z72.0 and 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 [facility] [id number] [place] [address] 12694- 6427 02 Jul, 2017 [place] [address] 62912- 6547 Jul, Drug induced constipation K59.03 [facility] [address], [place] [address]- 8693 Jun, Chronic obstructive pulmonary disease, unspecified COPD type J44.9 ; Tobacco use Z72.0 ; Hypothyroidism, unspecified hypothyroidism type E03.9 ; Other chronic pain G89.29 ; Drug induced constipation K59.03 and COPD exacerbation J44.1 [facility] [id number] [place] [address] 77733- 6336 Jun, [facility] [id number] [place] [address] 04241- 7229 Jun, [facility] [id number] [place] [address] 71789- 8256 Jun, Osteoporosis M81.0 [facility] [id number] [place] [address] 93366- 3685 Jun, [facility] [id number] [place] [address] 47171- 8889 Jun, Other chronic pain G89.29 [facility] [id number] [place] [address] 05007- 8485 Jun, Other chronic pain G89.29 [facility] [id number] [place] [address] 55312- 5079 Jun, Hypothyroidism, unspecified hypothyroidism type E03.9 [facility] [id number] [place] [address] 22269- 0158 Jun, [facility] [id number] [place] [address] 51894- 6567 May, [facility] [id number] [place] [address] 00746- 8576 May, COPD exacerbation J44.1 ; Pain of left lower extremity M79.605 ; Burn T30.0 ; Fatigue, unspecified type R53.83 ; Anemia, unspecified type D64.9 ; Adverse effect of other opioids, initial encounter T40.2X5A and Drug induced constipation K59.03 [facility] [address], [place] [address]- 4190 May, [facility] [id number] [place] [address] 22978- 9753 May, Burn T30.0 [facility] [id number] [place] [address] 16142- 6313 18 May, 2017 Other chronic pain G89.29 and Burn T30.0 [facility] [id number] [place] [address] 31821- 8653 14 May, 2017 Other chronic pain G89.29 [facility] [id number] [place] [address] 63134- 5527 Apr, [facility] [id number] [place] [address] 99778- 6280 Apr, [facility] [id number] [place] [address] 64124- 8541 Apr, [facility] [id number] [place] [address] 98850- 4921 Apr, [facility] [id number] [place] [address] 73270- 9559 Apr, Other chronic pain G89.29 [facility] [id number] [place] [address] 25779- 1400 Apr, Fatigue, unspecified type R53.83 ; Hypothyroidism, unspecified hypothyroidism type E03.9 ; Other chronic pain G89.29 ; Essential hypertension I10 ; Persistent atrial fibrillation I48.1 ; Chronic obstructive pulmonary disease, unspecified COPD type J44.9 ; Nocturnal hypoxia G47.34 ; Irritable bowel syndrome without diarrhea K58.9 ; Hyponatremia E87.1 ; Osteoporosis M81.0 and Primary insomnia F51.01 [facility] [address] [place] [address] 89950- 9331 Feb, [facility] [id number] [place] [address] 50898- 5019 January, [address] 74138- 4899 Oct, Essential hypertension I10 [address] 51414- 7771 Sep, Shortness of breath R06.02 ; COPD with exacerbation J44.1 and Weakness R53.[address] 81890- 3162 Sep, Drug-induced constipation K59.03 and Allergic rhinitis, unspecified allergic rhinitis trigger, unspecified rhinitis seasonality J30.[address] 21251- 8415 Sep, [address] 31083- 1710 Sep, [address] 04977- 0453 Sep, [address] 44784- 0909 Jul, [address] 42058- 9399 Jul, Other chronic pain G89.29 ; Hematuria R31.9 ; Screening for breast cancer Z12.39 ; Anxiety F41.9 ; Primary insomnia F51.01 ; Drug-induced constipation K59.03 and Encounter for immunization Z23 [place] [id number] [place] [address] 79448- 3085 Jul, 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 61210- 9438 Jun, 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 and Hyponatremia E87.[address] 37720- 6034 Jun, 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 and Hyponatremia E87.1 [place] [id number] [place] [address] 35912- 5368 May, Hyponatremia E87.1 [place] [id number] [place] [address] 24887- 2941 May, Essential hypertension I10 ; Tobacco use Z72.0 ; Hyponatremia E87.1 ; Allergic rhinitis, unspecified allergic rhinitis trigger, unspecified rhinitis seasonality J30.9 and Osteoporosis M81.0 [place] [id number] [place] [address] 39093- 8252 Mar, [place] [address] 90866- 8157 Mar, [place] [id number] [place] [address] 51591- 6354 Mar, Hyponatremia E87.1 [place] [id number] [place] [address] 68111- 4246 Feb, Essential hypertension I10 ; Hypothyroidism, unspecified [...] Concern about skin disease without diagnosis Z71.1 [place] [address] [place] [address] 68314- 4527 Feb, [place] [id number] [place] [address] 67760- 8024 Feb, Other nonspecific abnormal finding of lung field R91.8 [place] [id number] [place] [address] 71228- 0319 Dec, [address] [place] [address] 72667- 3071 Dec, [facility] [id number] [place] [address] 61375- 2076 Nov, [facility] [id number] [place] [address] 88817- 7166 Nov, [facility] [id number] [place] [address] 43248- 7539 Oct, [facility] [id number] [place] [address] 15117- 3233 Oct, [facility] [id number] [place] [address] 50192- 3317 Oct, [facility] [id number] [place] [address] 98523- 0855 Aug, Chronic obstructive pulmonary disease, unspecified COPD type J44.9 [facility] [id number] [place] [address] 53631- 9403 Aug, [facility] [id number] [place] [address] 87121- 0683 Aug, Rectal bleeding K62.5 and GERD (gastroesophageal reflux disease) K21.9 [facility] [id number] [place] [address] 29780- 3490 Jul, [facility] [id number] [place] [address] 00872- 6246 Jul, 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 [facility] [id number] [place] [address] 19292- 5846 Jun, [facility] [id number] [place] [address] 54644- 9921 Jun, [facility] [id number] [place] [address] 17167- 0356 23 May, 2015 Adrenal mass 255.9 and Abnormal dexamethasone suppression test 794.6 [facility] [address], [place] [address]- 5418 May, Adrenal mass 255.9 [facility] [id number] [place] [address] 44802- 4739 21 May, 2015 [facility] [address] [place] [address] 11626- 0478 18 May, 2015 Pneumonia 486 and COPD (chronic obstructive pulmonary disease) 496 [facility] [id number] [place] [address] 69482- 5215 17 May, 2014 [facility] [id number] [place] [address] 55684- 3817 14 May, 2015 [facility] [id number] [place] [address] 00327- 0560 11 May, 2015 [facility] [id number] [place] [address] 98077- 3600 10 May, 2015 [facility] [address] [place] [address] 03234- 3746 09 May, 2015 [facility] [address] [place] [address] 16770- 4447 08 May, 2015 [facility] [address] [place] [address] 62708- 5214 04 May, 2015 Adrenal mass 255.9 [facility] [address] [place] [address] 81651- 4350 Apr, Adrenal mass 255.9 ; Hypothyroidism 244.9 ; Chronic sore throat 472.1 ; Atrial fibrillation 427.31 ; Hypertension 401.9 ; Generalized anxiety disorder 300.02 ; Chronic pain 338.29 and COPD (chronic obstructive pulmonary disease) 496 [facility] [address] [place] [address] 37838- 7107 Apr, [facility] [address] [place] [address] 20951- 3790 Apr, [facility] [id number] [place] [address] 81208- 1655 Mar, [facility] [id number], [place] [address]- 3182 Mar, Adrenal mass 255.9 [facility] [address], [place] [address]- 1700 Mar, [facility] [address], [place] [address]- 1125 Mar, Chronic sore throat 472.1 and Adrenal mass 255.9 [facility] [address], [place] [address]- 8426 Mar, [facility] [address], [place] [address]- 7574 Feb, [facility] [address], [place] [address]- 2639 Feb, [facility] [address], [place] [address]- 0924 Feb, [facility] [address], [place] [address]- 2204 Feb, [facility] [address], [place] [address]- 7456 Feb, [facility] [id number], [place] [address]- 8611 Feb, [facility] [id number], [place] [address]- 8407 Feb, [facility] [id number], [place] [address]- 4200 Feb, [facility] [address], [place] [address]- 1959 Feb, [facility] [id number], [place] [address]- 7177 January, Adrenal mass 255.9 ; Hypothyroidism 244.9 ; Chronic sore throat 472.1 ; Atrial fibrillation 427.31 ; Hypertension 401.9 ; Generalized anxiety disorder 300.02 ; Chronic pain 338.29 and COPD (chronic obstructive pulmonary disease) 496 [facility] [address], [place] [address]- 3546 January, [facility] [address], [place] [address]- 9806 January, [facility] [id number] [place] [address] 01343- 2048 January, Sinusitis 473.9 [facility] [address] [address]- 8819 January, [facility] [address] [address]- 2696 January, [facility] [address] [address]- 1655 Dec, [facility] [address], [place] [address]- 1029 Dec, [facility] [address], [place] [address]- 2155 Nov, [facility] [address], [place] [address]- 0506 Nov, [facility] [address], [place] [address]- 8200 Nov, [facility] [address], [place] [address]- 4879 Nov, [facility] [address], [place] [address]- 8156 Oct, [facility] [address], [place] [address]- 6686 Oct, [facility] [address], [place] [address]- 0876 Oct, [facility] [address] [address]- 5866 Oct, 2014 [facility] [place] [facility] [address] [id number] [place] [address]- 4436 Oct, 2014 [facility] [place] [facility] [address] [id number] [place] [address]- 1086 Oct, 2014 [facility] [place] [facility] [address] [facility] [id number] [place] [address]- 6916 Oct, 2014 [facility] [place] [facility] [address] [id number] [place] [address]- 3042 Oct, 2014 [facility] [place] [facility] [address] [id number] [place] [address]- 6656 Oct, 2014 [facility] [place] [facility] [address] [facility] [id number] [place] [address]- 1383 Oct, 2014 [facility] [place] [facility] [address] [facility] [id number] [place] [address]- 3611 Oct, 2014 [facility] [place] [facility] [address] [facility] [id number] [place] [address]- 8930 Oct, 2014 [facility] [place] [facility] [address] [facility] [id number] [place] [address]- 3136 Oct, 2014 [facility] [place] [facility] [address] [facility] [id number] [place] [address]- 6460 Oct, 2014 [facility] [place] [facility] [address] [facility] [id number] [address]- 2864 Oct, 2014 [facility] [place] [facility] [address] [facility] [id number] [place] [address]- 2541 Oct, 2014 [facility] [place] [facility] [address] [facility] [id number] [address]- 2497 Oct, 2014 [facility] [place] [facility] [address] [facility] [id number] [place] [address]- 0237 Oct, 2014 [facility] [place] [facility] [address] [facility] [id number] [place] [address]- 1435 Sep, [facility] [address] [facility] [id number] [place] [address]- 2127 Sep, [facility] [address] [facility] [id number] [place] [address]- 2521 May, IMMUNIZATIONS No Known Immunizations SOCIAL HISTORY Never Assessed REASON FOR VISIT medication PLAN OF CARE VITAL SIGNS MEDICATIONS Medication Instructions Dosage Frequency Start Date End Date Duration Status Loratadine 10 mg Orally Once a day 1 tablet 24h 30 days Active RESULTS No Results PROCEDURES [...]
--- OUTSIDE RECORDS SUMMARY | 2018-06-29 09:02 | XMS REPORT ---
Author Author SHANICE OBINNA [facility] Address [address] [place] [address] Care Team Providers Care [employer] Supervisor Name Role Phone OBINNA PRASAD Unavailable PROBLEMS Type Condition ICD9-CM Code GPI32-MJ Code Onset Dates Condition Status SNOMED Code Problem Other chronic pain G89.29 Active 86121442 Problem Rectal bleeding K62.5 Active 12296719 Problem 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 Active 3454062132095690 Problem Chronic pain syndrome G89.4 Active 204126784 Problem Anxiety F41.9 Active 14750029 Problem T12 compression fracture S22.080A Active 030291048 Problem Allergic rhinitis, unspecified allergic rhinitis trigger, unspecified rhinitis seasonality J30.9 Active 43134614 Problem Osteoporosis M81.0 Active 86319724 Problem Drug induced constipation K59.03 Active 085729924585551 Problem Primary insomnia F51.01 Active 2591955 Problem Other nonspecific abnormal finding of lung field R91.8 Resolved 672579196 Problem Irritable bowel syndrome without diarrhea K58.9 Active 95252080 Problem 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 Active 087793848 Problem Tobacco use Z72.0 Active 991107342 Problem Chronic obstructive pulmonary disease, unspecified COPD type J44.9 Active 19851907 Problem Nocturnal hypoxia G47.34 Active 572542453 Problem Persistent atrial fibrillation I48.1 Active 793547202 Problem Essential hypertension I10 Active 38909144 Problem Hypothyroidism, unspecified hypothyroidism type E03.9 Active 64226679 Problem 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 Active 55120352 ALLERGIES No Information ENCOUNTERS Encounter Location Date Diagnosis [facility] [address] [facility] [id number] [address] Apr, [facility] [address] [facility] [id number] [place] [address] Apr, Chronic pain syndrome G89.4 [facility] [address] [facility] [id number] [place] [address] Apr, [facility] [address] [address] 8[address] Mar, [facility] [id number] [address] 5[address] Mar, [facility] [id number] [place] [address] 20821- 1175 Mar, Hypothyroidism, unspecified hypothyroidism type E03.9 [facility] [address] [facility] [id number] [place] [address] 01642- 9479 Mar, [facility] [id number] [place] [address] 68545- 5819 Mar, Chronic pain syndrome G89.4 [facility] [id number] [place] [address] 59857- 7656 Mar, [facility] [id number] [place] [address] 24534- 9881 Mar, Chronic pain syndrome G89.4 [facility] [address] [address] 4[address] Mar, [facility] [address] [address] 8306 Mar, Chronic pain syndrome G89.4 and Other chronic pain G89.29 [facility] [address] [address] 0293 Feb, Chronic obstructive pulmonary disease, unspecified COPD type J44.9 [facility] [address] [facility] [id number] [place] [address] 5288 Feb, [facility] [id number] [address] 0500 Feb, [facility] [address] [address] 4609 Feb, [facility] [address] [address]- 2255 Feb, [facility] [address] [address] 7954 Feb, [facility] [address] [address] 1829 Feb, Other chronic pain G89.29 ; Rectal bleeding K62.5 and Chronic pain syndrome G89.4 [facility] [id number] [place] [address] 54149- 9842 15 Feb, 2018 [facility] [id number] [place] [address] 40380- 1319 Feb, [facility] [id number] [place] [address] 69232- 2980 05 Feb, 2018 Other chronic pain G89.29 ; Essential hypertension I10 ; Osteoporosis M81.0 ; Drug induced constipation K59.03 ; Chronic obstructive pulmonary disease, unspecified COPD type J44.9 ; Hypothyroidism, unspecified hypothyroidism type E03.9 ; 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 ; Right ear pain H92.01 and Sore throat J02.9 [facility] [address] [address] 8020 January, [facility] [address] [address] 1203 January, Low back pain M54.5 ; Other chronic pain G89.29 ; Pain in thoracic spine M54.6 and Neck pain M54.2 [facility] [address] [address] 9817 Dec, Low back pain M54.5 ; Other chronic pain G89.29 ; Pain in thoracic spine M54.6 and Neck pain M54.2 [facility] [address] [address] 2899 Dec, 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 and Chronic obstructive pulmonary disease, unspecified COPD type J44.9 [facility] [id number] [place] [address] 92691- 4238 Dec, [facility] [address] [address]80- 9229 Dec, Hypothyroidism, unspecified hypothyroidism type E03.9 [facility] [address] 46273- 2220 Oct, Essential hypertension I10 [facility] [address] 12553- 0507 Oct, [facility] [facility] [address] 96315- 5457 Sep, [facility] [facility] [address] 42734- 6841 Sep, 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 [facility] [address] [address]17- 1949 Aug, Drug induced constipation K59.03 [facility] [address] 68409- 8354 Aug, [facility] [address] 06938- 1833 10 Jul, 2017 Other chronic pain G89.29 [facility] [address] 95823- 8988 Jul, [facility] [id number] [place] [address] 26240- 3868 Jul, Encounter for immunization Z23 ; Well woman exam (no gynecological exam) Z00.00 ; Tobacco use Z72.0 and 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 [facility] [id number] [place] [address] 28782- 4028 02 Jul, 2017 [facility] [address] 74876- 2481 Jul, Drug induced constipation K59.03 [facility] [address] [address]- 1455 Jun, Chronic obstructive pulmonary disease, unspecified COPD type J44.9 ; Tobacco use Z72.0 ; Hypothyroidism, unspecified hypothyroidism type E03.9 ; Other chronic pain G89.29 ; Drug induced constipation K59.03 and COPD exacerbation J44.1 [facility] [id number] [place] [address] 64016- 8864 Jun, [facility] [id number] [place] [address] 56538- 3917 Jun, [facility] [id number] [place] [address] 14788- 2999 Jun, Osteoporosis M81.0 [facility] [id number] [place] [address] 73263- 5577 Jun, [facility] [id number] [place] [address] 54724- 2467 Jun, Other chronic pain G89.29 [facility] [id number] [place] [address] 88581- 0353 Jun, Other chronic pain G89.29 [facility] [id number] [place] [address] 32499- 4556 Jun, Hypothyroidism, unspecified hypothyroidism type E03.9 [facility] [id number] [place] [address] 48456- 5786 Jun, [facility] [id number] [place] [address] 37682- 6370 May, [facility] [id number] [place] [address] 35436- 9442 May, COPD exacerbation J44.1 ; Pain of left lower extremity M79.605 ; Burn T30.0 ; Fatigue, unspecified type R53.83 ; Anemia, unspecified type D64.9 ; Adverse effect of other opioids, initial encounter T40.2X5A and Drug induced constipation K59.03 [facility] [address] [address]- 3144 May, [facility] [id number] [place] [address] 13699- 1661 May, Burn T30.0 [facility] [id number] [place] [address] 69431- 1066 18 May, 2017 Other chronic pain G89.29 and Burn T30.0 [facility] [id number] [place] [address] 04215- 9287 14 May, 2017 Other chronic pain G89.29 [facility] [id number] [place] [address] 43456- 7578 Apr, [facility] [id number] [place] [address] 75314- 0925 Apr, [facility] [id number] [place] [address] 46879- 1595 Apr, [facility] [id number] [place] [address] 17389- 9889 Apr, [facility] [id number] [place] [address] 75622- 4882 Apr, Other chronic pain G89.29 [facility] [id number] [place] [address] 00434- 1917 Apr, Fatigue, unspecified type R53.83 ; Hypothyroidism, unspecified hypothyroidism type E03.9 ; Other chronic pain G89.29 ; Essential hypertension I10 ; Persistent atrial fibrillation I48.1 ; Chronic obstructive pulmonary disease, unspecified COPD type J44.9 ; Nocturnal hypoxia G47.34 ; Irritable bowel syndrome without diarrhea K58.9 ; Hyponatremia E87.1 ; Osteoporosis M81.0 and Primary insomnia F51.01 [facility] [id number] [place] [address] 00531- 0003 Feb, [facility] [id number] [place] [address] 60000- 4449 January, [address] 02593- 8968 Oct, Essential hypertension I10 [address] 10113- 2244 Sep, Shortness of breath R06.02 ; COPD with exacerbation J44.1 and Weakness R53.[address] 83671- 2093 Sep, Drug-induced constipation K59.03 and Allergic rhinitis, unspecified allergic rhinitis trigger, unspecified rhinitis seasonality J30.[address] 88233- 2913 Sep, [address] 85333- 3135 Sep, [address] 09534- 2613 Sep, [address] 71747- 2202 Jul, [address] 28179- 3773 Jul, Other chronic pain G89.29 ; Hematuria R31.9 ; Screening for breast cancer Z12.39 ; Anxiety F41.9 ; Primary insomnia F51.01 ; Drug-induced constipation K59.03 and Encounter for immunization Z23 [place] [id number] [place] [address] 34515- 5215 Jul, 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 07029- 5484 Jun, 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 and Hyponatremia E87.[address] 04091- 5595 Jun, 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 and Hyponatremia E87.1 [facility] [id number] [place] [address] 31477- 7147 May, Hyponatremia E87.1 [facility] [id number] [place] [address] 74820- 1050 May, Essential hypertension I10 ; Tobacco use Z72.0 ; Hyponatremia E87.1 ; Allergic rhinitis, unspecified allergic rhinitis trigger, unspecified rhinitis seasonality J30.9 and Osteoporosis M81.0 [facility] [id number] [place] [address] 95734- 1445 Mar, [place] [address] 48626- 6769 Mar, [facility] [id number] [place] [address] 57360- 5946 Mar, Hyponatremia E87.1 [facility] [id number] [place] [address] 95182- 1672 Feb, Essential hypertension I10 ; Hypothyroidism, unspecified [...] Concern about skin disease without diagnosis Z71.1 [place] [id number] [place] [address] 82808- 7198 Feb, [place] [id number] [place] [address] 69034- 1901 Feb, Other nonspecific abnormal finding of lung field R91.8 [place] [id number] [place] [address] 45408- 8546 Dec, [address] [place] [address] 18916- 9322 Dec, [facility] [id number] [place] [address] 45140- 7303 Nov, [facility] [id number] [place] [address] 50010- 9789 Nov, [facility] [id number] [place] [address] 85182- 6328 Oct, [facility] [id number] [place] [address] 70135- 4000 Oct, [facility] [id number] [place] [address] 40532- 6490 Oct, [facility] [id number] [place] [address] 78243- 9388 Aug, Chronic obstructive pulmonary disease, unspecified COPD type J44.9 [facility] [id number] [place] [address] 15640- 5533 Aug, [facility] [id number] [place] [address] 67591- 8751 Aug, Rectal bleeding K62.5 and GERD (gastroesophageal reflux disease) K21.9 [facility] [id number] [place] [address] 52844- 3886 Jul, [facility] [id number] [place] [address] 21570- 9230 Jul, 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 [facility] [id number] [place] [address] 74811- 6020 Jun, [facility] [id number] [place] [address] 63483- 7553 Jun, [facility] [id number] [place] [address] 25027- 4918 23 May, 2015 Adrenal mass 255.9 and Abnormal dexamethasone suppression test 794.6 [facility] [address] [address]- 4250 May, Adrenal mass 255.9 [facility] [id number] [place] [address] 19278- 7630 21 May, 2015 [facility] [id number] [place] [address] 20859- 7912 18 May, 2015 Pneumonia 486 and COPD (chronic obstructive pulmonary disease) 496 [facility] [id number] [place] [address] 63995- 9029 17 May, 2014 [facility] [id number] [place] [address] 05727- 8155 14 May, 2015 [facility] [id number] [place] [address] 44495- 0842 11 May, 2015 [facility] [id number] [place] [address] 40158- 7624 10 May, 2015 [facility] [id number] [place] [address] 37617- 7719 09 May, 2015 [facility] [id number] [place] [address] 24829- 5811 08 May, 2015 [facility] [address] [place] [address] 93487- 8887 04 May, 2015 Adrenal mass 255.9 [facility] [address] [place] [address] 69684- 6337 Apr, Adrenal mass 255.9 ; Hypothyroidism 244.9 ; Chronic sore throat 472.1 ; Atrial fibrillation 427.31 ; Hypertension 401.9 ; Generalized anxiety disorder 300.02 ; Chronic pain 338.29 and COPD (chronic obstructive pulmonary disease) 496 [facility] [id number] [place] [address] 17845- 8956 Apr, [facility] [id number] [place] [address] 14309- 2094 Apr, [facility] [id number] [place] [address] 40512- 1800 Mar, [facility] [id number] [address]- 3634 Mar, Adrenal mass 255.9 [facility] [address] [address]- 9893 Mar, [facility] [address] [address]- 3470 Mar, Chronic sore throat 472.1 and Adrenal mass 255.9 [facility] [address] [address]- 8850 Mar, [facility] [address] [address]- 6219 Feb, [facility] [address] [address]- 3629 Feb, [facility] [address] [address]- 7465 Feb, [facility] [address] [address]- 1508 Feb, [facility] [address] [address]- 4690 Feb, [facility] [id number] [address]- 6134 Feb, [facility] [id number] [address]- 5072 Feb, [facility] [id number] [address]- 1768 Feb, [facility] [address] [address]- 0613 Feb, [facility] [id number] [address]- 2165 January, Adrenal mass 255.9 ; Hypothyroidism 244.9 ; Chronic sore throat 472.1 ; Atrial fibrillation 427.31 ; Hypertension 401.9 ; Generalized anxiety disorder 300.02 ; Chronic pain 338.29 and COPD (chronic obstructive pulmonary disease) 496 [facility] [address] [address]- 6646 January, [facility] [address] [address]- 1146 January, [facility] [id number] [place] [address] 02996- 8707 January, Sinusitis 473.9 [facility] [id number] [address]- 6050 January, [facility] [id number] [address]- 2296 January, [facility] [id number] [address]- 0578 Dec, [facility] [address] [address]- 2632 Dec, [facility] [address] [address]- 0835 Nov, [facility] [address] [address]- 1296 Nov, [facility] [address] [address]- 5907 Nov, [facility] [address] [address]- 7414 Nov, [facility] [address] [address]- 6450 Oct, [facility] [address] [address]- 0196 Oct, [facility] [address] [address]- 4936 Oct, [facility] [address] [place] [address]- 1466 Oct, 2014 [facility] [place] [facility] [address] [id number] [place] [address]- 4806 Oct, 2014 [facility] [place] [facility] [address] [id number] [place] [address]- 4846 Oct, 2014 [facility] [place] [facility] [address] [facility] [id number] [place] [address]- 0834 Oct, 2014 [facility] [place] [facility] [address] [id number] [place] [address]- 9417 Oct, 2014 [facility] [place] [facility] [address] [id number] [place] [address]- 5096 Oct, 2014 [facility] [place] [facility] [address] [facility] [id number] [place] [address]- 8116 Oct, 2014 [facility] [place] [facility] [address] [facility] [id number] [place] [address]- 6313 Oct, 2014 [facility] [place] [facility] [address] [facility] [id number] [place] [address]- 0874 Oct, 2014 [facility] [place] [facility] [address] [facility] [id number] [place] [address]- 4412 Oct, 2014 [facility] [place] [facility] [address] [facility] [id number] [place] [address]- 2751 Oct, 2014 [facility] [place] [facility] [address] [facility] [id number] [place] [address]- 5340 Oct, 2014 [facility] [place] [facility] [address] [facility] [id number] [place] [address]- 2547 Oct, 2014 [facility] [place] [facility] [address] [facility] [id number] [place] [address]- 7425 Oct, 2014 [facility] [place] [facility] [address] [facility] [id number] [place] [address]- 8398 Oct, 2014 [facility] [place] [facility] [address] [facility] [id number] [place] [address]- 1705 Sep, [facility] [address] [facility] [id number] [place] [address]- 4509 Sep, [facility] [address] [facility] [id number] [place] [address]- 0106 May, IMMUNIZATIONS No Known Immunizations SOCIAL HISTORY Never Assessed REASON FOR VISIT Refill Request PLAN OF CARE VITAL SIGNS MEDICATIONS Medication [...]
--- OUTSIDE RECORDS SUMMARY | 2018-06-29 09:03 | XMS REPORT ---
Author Author SHANICE OBINNA [facility] Address [address] [place] [address] Care Team Providers Care Computer Systems Information Director Name Role Phone OBINNA PRASAD Unavailable PROBLEMS Type Condition ICD9-CM Code QOC09-IU Code Onset Dates Condition Status SNOMED Code Problem Other chronic pain G89.29 Active 75018892 Problem Rectal bleeding K62.5 Active 86876769 Problem 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 Active 1436411762873325 Problem Chronic pain syndrome G89.4 Active 208956472 Problem Anxiety F41.9 Active 52159816 Problem T12 compression fracture S22.080A Active 324798515 Problem Allergic rhinitis, unspecified allergic rhinitis trigger, unspecified rhinitis seasonality J30.9 Active 90531243 Problem Osteoporosis M81.0 Active 60730006 Problem Drug induced constipation K59.03 Active 838917412065732 Problem Primary insomnia F51.01 Active 9979574 Problem Other nonspecific abnormal finding of lung field R91.8 Resolved 154784669 Problem Irritable bowel syndrome without diarrhea K58.9 Active 07370198 Problem 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 Active 254728309 Problem Tobacco use Z72.0 Active 620137654 Problem Chronic obstructive pulmonary disease, unspecified COPD type J44.9 Active 40240004 Problem Nocturnal hypoxia G47.34 Active 183382538 Problem Persistent atrial fibrillation I48.1 Active 645542212 Problem Essential hypertension I10 Active 12513258 Problem Hypothyroidism, unspecified hypothyroidism type E03.9 Active 72468516 Problem 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 Active 96225737 ALLERGIES No Information ENCOUNTERS Encounter Location Date Diagnosis [facility] [address] [facility] [id number] [address] Apr, [facility] [address] [facility] [id number] [address] 9[address] Apr, Chronic pain syndrome G89.4 [facility] [address] [facility] [id number] [place] [address] 0069 Apr, [facility] [address] [address] 8863 Mar, [facility] [address] [id number] [address] 8866 Mar, [facility] [id number] [place] [address] 60780- 1480 Mar, Hypothyroidism, unspecified hypothyroidism type E03.9 [facility] [address] [facility] [id number] [place] [address] 64341- 9382 Mar, [facility] [id number] [place] [address] 66425- 4399 Mar, Chronic pain syndrome G89.4 [facility] [id number] [place] [address] 16268- 0396 Mar, [facility] [id number] [place] [address] 06032- 8045 Mar, Chronic pain syndrome G89.4 [facility] [address] [address] 0403 Mar, [facility] [address] [address] 1017 Mar, Chronic pain syndrome G89.4 and Other chronic pain G89.29 [facility] [address]65100[place] [address] 0081 Feb, Chronic obstructive pulmonary disease, unspecified COPD type J44.9 [facility] [address] [facility] [id number] [place] [address] 7057 Feb, [facility] [address] [id number] [address] 4259 Feb, [facility] [address] [address] 0523 Feb, [facility] [address]100[place] [address]- 5560 Feb, [facility] [address] [address]- 9786 Feb, [facility] [address] [address] 8116 Feb, Other chronic pain G89.29 ; Rectal bleeding K62.5 and Chronic pain syndrome G89.4 [facility] [id number] [place] [address] 81966- 9418 15 Feb, 2018 [facility] [id number] [place] [address] 78778- 5408 Feb, [facility] [address] [place] [address] 52720- 2595 05 Feb, 2018 Other chronic pain G89.29 ; Essential hypertension I10 ; Osteoporosis M81.0 ; Drug induced constipation K59.03 ; Chronic obstructive pulmonary disease, unspecified COPD type J44.9 ; Hypothyroidism, unspecified hypothyroidism type E03.9 ; 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 ; Right ear pain H92.01 and Sore throat J02.9 [facility] [address] [address]- 0115 January, [facility] [address] [address]- 5603 January, Low back pain M54.5 ; Other chronic pain G89.29 ; Pain in thoracic spine M54.6 and Neck pain M54.2 [facility] [address] [address]- 2369 Dec, Low back pain M54.5 ; Other chronic pain G89.29 ; Pain in thoracic spine M54.6 and Neck pain M54.2 [facility] [address] [address]- 0386 Dec, 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 and Chronic obstructive pulmonary disease, unspecified COPD type J44.9 [facility] [id number] [place] [address] 16679- 1362 Dec, [facility] [address] [address]- [address] Dec, Hypothyroidism, unspecified hypothyroidism type E03.9 [place] [address] [address]20- 5807 Oct, Essential hypertension I10 [place] [address] 63154- 2651 Oct, [place] [address] 13474- 4047 Sep, [address] [address] [address]- 3036 Sep, 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 [place] [address] 24308- 4391 Aug, Drug induced constipation K59.03 [place] [address] 96846- 0115 Aug, [place] [facility] [address] 39568- 9375 10 Jul, 2017 Other chronic pain G89.29 [facility] [address] 48749- 9790 Jul, [facility] [id number] [place] [address] 26196- 0322 Jul, Encounter for immunization Z23 ; Well woman exam (no gynecological exam) Z00.00 ; Tobacco use Z72.0 and 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 [facility] [id number] [place] [address] 27174- 3216 02 Jul, 2017 [place] [address] 68323- 3201 Jul, Drug induced constipation K59.03 [facility] [address] [address]- 5153 Jun, Chronic obstructive pulmonary disease, unspecified COPD type J44.9 ; Tobacco use Z72.0 ; Hypothyroidism, unspecified hypothyroidism type E03.9 ; Other chronic pain G89.29 ; Drug induced constipation K59.03 and COPD exacerbation J44.1 [facility] [id number] [place] [address] 15183- 9428 Jun, [facility] [id number] [place] [address] 88654- 6896 Jun, [facility] [id number] [place] [address] 60672- 0523 Jun, Osteoporosis M81.0 [facility] [id number] [place] [address] 17147- 5259 Jun, [facility] [id number] [place] [address] 06375- 1366 Jun, Other chronic pain G89.29 [facility] [id number] [place] [address] 73161- 7295 Jun, Other chronic pain G89.29 [facility] [id number] [place] [address] 52214- 1164 Jun, Hypothyroidism, unspecified hypothyroidism type E03.9 [facility] [id number] [place] [address] 70201- 3789 Jun, [facility] [id number] [place] [address] 82985- 3320 May, [facility] [id number] [place] [address] 17996- 6916 May, COPD exacerbation J44.1 ; Pain of left lower extremity M79.605 ; Burn T30.0 ; Fatigue, unspecified type R53.83 ; Anemia, unspecified type D64.9 ; Adverse effect of other opioids, initial encounter T40.2X5A and Drug induced constipation K59.03 [facility] [address] [address]- 4029 May, [facility] [id number] [place] [address] 05816- 5934 May, Burn T30.0 [facility] [id number] [place] [address] 80144- 9542 18 May, 2017 Other chronic pain G89.29 and Burn T30.0 [facility] [id number] [place] [address] 52711- 7482 14 May, 2017 Other chronic pain G89.29 [facility] [id number] [place] [address] 63006- 5679 Apr, [facility] [id number] [place] [address] 56062- 8702 Apr, [facility] [id number] [place] [address] 11093- 6417 Apr, [facility] [id number] [place] [address] 00304- 9913 Apr, [facility] [id number] [place] [address] 70656- 0152 Apr, Other chronic pain G89.29 [facility] [id number] [place] [address] 10072- 1103 Apr, Fatigue, unspecified type R53.83 ; Hypothyroidism, unspecified hypothyroidism type E03.9 ; Other chronic pain G89.29 ; Essential hypertension I10 ; Persistent atrial fibrillation I48.1 ; Chronic obstructive pulmonary disease, unspecified COPD type J44.9 ; Nocturnal hypoxia G47.34 ; Irritable bowel syndrome without diarrhea K58.9 ; Hyponatremia E87.1 ; Osteoporosis M81.0 and Primary insomnia F51.01 [facility] [address] [place] [address] 98568- 7522 Feb, [facility] [id number] [place] [address] 47585- 1356 January, [address] 30699- 8668 Oct, Essential hypertension I10 [address] 68880- 8327 Sep, Shortness of breath R06.02 ; COPD with exacerbation J44.1 and Weakness R53.[address] 11606- 6310 Sep, Drug-induced constipation K59.03 and Allergic rhinitis, unspecified allergic rhinitis trigger, unspecified rhinitis seasonality J30.[address] 19522- 4466 Sep, [address] 77048- 0829 Sep, [address] 43774- 9913 Sep, [address] 17304- 6803 Jul, [address] 49769- 4411 Jul, Other chronic pain G89.29 ; Hematuria R31.9 ; Screening for breast cancer Z12.39 ; Anxiety F41.9 ; Primary insomnia F51.01 ; Drug-induced constipation K59.03 and Encounter for immunization Z23 [id number] [place] [address] 45357- 4429 Jul, 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 40643- 2730 Jun, 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 and Hyponatremia E87.[address] 32921- 2307 Jun, 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 and Hyponatremia E87.1 [facility] [id number] [place] [address] 31355- 5583 May, Hyponatremia E87.1 [facility] [id number] [place] [address] 72823- 4319 May, Essential hypertension I10 ; Tobacco use Z72.0 ; Hyponatremia E87.1 ; Allergic rhinitis, unspecified allergic rhinitis trigger, unspecified rhinitis seasonality J30.9 and Osteoporosis M81.0 [facility] [id number] [place] [address] 29680- 1039 Mar, [facility] [address] 05773- 3528 Mar, [facility] [id number] [place] [address] 92150- 4972 Mar, Hyponatremia E87.1 [facility] [id number] [place] [address] 32311- 4147 Feb, Essential hypertension I10 ; Hypothyroidism, unspecified [...] Concern about skin disease without diagnosis Z71.1 [facility] [address] [place] [address] 47520- 4049 Feb, [id number] [place] [address] 75027- 2597 Feb, Other nonspecific abnormal finding of lung field R91.8 [address] [id number] [place] [address] 47094- 0386 Dec, [address] [place] [address] 19254- 5712 Dec, [facility] [id number] [place] [address] 41258- 6400 Nov, [facility] [id number] [place] [address] 66165- 3154 Nov, [facility] [id number] [place] [address] 62343- 1303 Oct, [facility] [id number] [place] [address] 91635- 2187 Oct, [facility] [id number] [place] [address] 66851- 8497 Oct, [facility] [id number] [place] [address] 55114- 8104 Aug, Chronic obstructive pulmonary disease, unspecified COPD type J44.9 [facility] [id number] [place] [address] 95062- 7096 Aug, [facility] [id number] [place] [address] 25243- 8269 Aug, Rectal bleeding K62.5 and GERD (gastroesophageal reflux disease) K21.9 [facility] [id number] [place] [address] 91020- 4356 Jul, [facility] [id number] [place] [address] 49033- 6942 Jul, 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 [facility] [id number] [place] [address] 22953- 3328 Jun, [facility] [id number] [place] [address] 88597- 4781 Jun, [facility] [id number] [place] [address] 01630- 5460 23 May, 2015 Adrenal mass 255.9 and Abnormal dexamethasone suppression test 794.6 [facility] [address] [address]- 5620 May, Adrenal mass 255.9 [facility] [id number] [place] [address] 06424- 6575 21 May, 2015 [facility] [address] [place] [address] 88148- 5678 18 May, 2015 Pneumonia 486 and COPD (chronic obstructive pulmonary disease) 496 [facility] [id number] [place] [address] 92601- 0422 17 May, 2014 [facility] [id number] [place] [address] 00356- 5770 14 May, 2015 [facility] [id number] [place] [address] 94993- 6432 11 May, 2015 [facility] [id number] [place] [address] 47236- 6457 10 May, 2015 [facility] [address] [place] [address] 59969- 1792 09 May, 2015 [facility] [address] [place] [address] 68325- 8475 08 May, 2015 [facility] [address] [place] [address] 07020- 8707 04 May, 2015 Adrenal mass 255.9 [facility] [address] [place] [address] 02441- 1558 Apr, Adrenal mass 255.9 ; Hypothyroidism 244.9 ; Chronic sore throat 472.1 ; Atrial fibrillation 427.31 ; Hypertension 401.9 ; Generalized anxiety disorder 300.02 ; Chronic pain 338.29 and COPD (chronic obstructive pulmonary disease) 496 [facility] [address] [place] [address] 51583- 3634 Apr, [facility] [address] [place] [address] 17051- 5215 Apr, [facility] [id number] [place] [address] 46726- 5364 Mar, [facility] [id number] [address]- 8753 Mar, Adrenal mass 255.9 [facility] [address] [address]- 8564 Mar, [facility] [address] [address]- 0758 Mar, Chronic sore throat 472.1 and Adrenal mass 255.9 [facility] [address] [address]- 5885 Mar, [facility] [address] [address]- 6553 Feb, [facility] [address] [address]- 5681 Feb, [facility] [address] [address]- 7164 Feb, [facility] [address] [address]- 7978 Feb, [facility] [address] [address]- 6105 Feb, [facility] [id number] [address]- 3463 Feb, [facility] [id number] [address]- 0371 Feb, [facility] [id number] [address]- 8476 Feb, [facility] [address] [address]- 7768 Feb, [facility] [id number] [address]- 9766 January, Adrenal mass 255.9 ; Hypothyroidism 244.9 ; Chronic sore throat 472.1 ; Atrial fibrillation 427.31 ; Hypertension 401.9 ; Generalized anxiety disorder 300.02 ; Chronic pain 338.29 and COPD (chronic obstructive pulmonary disease) 496 [facility] [address] [address]- 9926 January, [facility] [address] [address]- 3576 January, [facility] [id number] [place] [address] 14761- 7352 January, Sinusitis 473.9 [facility] [id number] [address]- 7431 January, [facility] [id number] [address]- 1536 January, [facility] [id number] [address]- 8415 Dec, [facility] [address] [address]- 3728 Dec, [facility] [address] [address]- 0314 Nov, [facility] [address] [address]- 8157 Nov, [facility] [address] [address]- 4272 Nov, [facility] [address] [address]- 6711 Nov, [facility] [address] [address]- 4824 Oct, [facility] [address] [address]- 1216 Oct, [facility] [address] [address]- 9946 Oct, [facility] [address] [address]- 0646 Oct, 2014 [facility] [place] [facility] [address] [id number] [place] [address]- 9756 Oct, 2014 [facility] [place] [facility] [address] [id number] [place] [address]- 2026 Oct, 2014 [facility] [place] [facility] [address] [facility] [id number] [place] [address]- 0098 Oct, 2014 [facility] [place] [facility] [address] [id number] [place] [address]- 6196 Oct, 2014 [facility] [place] [facility] [address] [id number] [place] [address]- 7186 Oct, 2014 [facility] [place] [facility] [address] [facility] [id number] [place] [address]- 9236 Oct, 2014 [facility] [place] [facility] [address] [facility] [id number] [place] [address]- 0418 Oct, 2014 [facility] [place] [facility] [address] [facility] [id number] [place] [address]- 9247 Oct, 2014 [facility] [place] [facility] [address] [facility] [id number] [place] [address]- 6874 Oct, 2014 [facility] [place] [facility] [address] [facility] [id number] [place] [address]- 2433 Oct, 2014 [facility] [place] [facility] [address] [facility] [id number] [address]- 8692 Oct, 2014 [facility] [place] [facility] [address] [facility] [id number] [place] [address]- 2544 Oct, 2014 [facility] [place] [facility] [address] [facility] [id number] [place] [address]- 4348 Oct, 2014 [facility] [place] [facility] [address] [facility] [id number] [place] [address]- 6688 Oct, 2014 [facility] [place] [facility] [address] [facility] [id number] [place] 9907 Sep, [facility] [address] [facility] [id number] [place] [address]- 5475 Sep, [facility] [address] [facility] [id number] [place] [address]- 8627 May, IMMUNIZATIONS No Known Immunizations SOCIAL HISTORY Never Assessed REASON FOR VISIT Referral Request PLAN OF CARE VITAL SIGNS MEDICATIONS Unknown [...]
--- OUTSIDE RECORDS SUMMARY | 2018-06-29 09:03 | XMS REPORT ---
Author Author FABIANA SCHUMACHER Organization [facility] Address [address] [place] [address] Care Team Providers Care Director Of Manufacturing Operations Name Role Phone FABIANA SCHUMACHER Unavailable PROBLEMS Type Condition ICD9-CM Code LUO11-BP Code Onset Dates Condition Status SNOMED Code Problem Other chronic pain G89.29 Active 51153207 Problem Rectal bleeding K62.5 Active 28518532 Problem 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 Active 3497948415169170 Problem Chronic pain syndrome G89.4 Active 646273074 Problem Anxiety F41.9 Active 31890824 Problem T12 compression fracture S22.080A Active 578098581 Problem Allergic rhinitis, unspecified allergic rhinitis trigger, unspecified rhinitis seasonality J30.9 Active 14765137 Problem Osteoporosis M81.0 Active 83806847 Problem Drug induced constipation K59.03 Active 820947045293985 Problem Primary insomnia F51.01 Active 2897789 Problem Other nonspecific abnormal finding of lung field R91.8 Resolved 861472242 Problem Irritable bowel syndrome without diarrhea K58.9 Active 63296027 Problem 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 Active 250488185 Problem Tobacco use Z72.0 Active 186491398 Problem Chronic obstructive pulmonary disease, unspecified COPD type J44.9 Active 69787175 Problem Nocturnal hypoxia G47.34 Active 855356394 Problem Persistent atrial fibrillation I48.1 Active 519625131 Problem Essential hypertension I10 Active 51473793 Problem Hypothyroidism, unspecified hypothyroidism type E03.9 Active 07316145 Problem 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 Active 14537480 ALLERGIES No Information ENCOUNTERS Encounter Location Date Diagnosis [facility] [address] [facility] [id number] [address] Apr, [facility] [address] [facility] [id number] [address] Apr, Chronic pain syndrome G89.4 [facility] [address] [facility] [id number] [address] 16[address] Apr, [facility] [address] [address] Mar, [facility] [id number] [address] 1524 Mar, [facility] [id number] [place] [address] 35952- 6298 Mar, Hypothyroidism, unspecified hypothyroidism type E03.9 [facility] [id number] [address] 7685 Mar, [facility] [id number] [place] [address] 51910- 5370 Mar, Chronic pain syndrome G89.4 [facility] [id number] [place] [address] 09566- 4233 Mar, [facility] [address] [address] 2468 Mar, Chronic pain syndrome G89.4 [facility] [address] [address] 6769 Mar, [facility] [address] [address] 3[address] Mar, Chronic pain syndrome G89.4 and Other chronic pain G89.29 [facility] [address] [address] 655[address] Feb, Chronic obstructive pulmonary disease, unspecified COPD type J44.9 [facility] [address] [facility] [id number] [address] 6178 Feb, [facility] [id number] [address] 7471 Feb, [facility] [address] [address] 7729 Feb, [place] [id number] [address] 7849 Feb, [facility] [id number] [place] [address] 54738- 3852 Feb, [facility] [id number] [place] [address] 31569- 7233 Feb, Other chronic pain G89.29 ; Rectal bleeding K62.5 and Chronic pain syndrome G89.4 [place] [id number] [place] [address] 57685- 4805 15 Feb, 2018 [place] [address] [place] [id number] [place] [address] 94346- 9036 Feb, [place] [address] [id number] [place] [address] 60958- 7471 Feb, Other chronic pain G89.29 ; Essential hypertension I10 ; Osteoporosis M81.0 ; Drug induced constipation K59.03 ; Chronic obstructive pulmonary disease, unspecified COPD type J44.9 ; Hypothyroidism, unspecified hypothyroidism type E03.9 ; 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 ; Right ear pain H92.01 and Sore throat J02.9 [place] [address] [id number] [place] [address] 34581- 8578 January, [place] [address] [place] [id number] [place] [address] 57278- 9458 January, Low back pain M54.5 ; Other chronic pain G89.29 ; Pain in thoracic spine M54.6 and Neck pain M54.2 [place] [id number] [place] [address] 28534- 1274 Dec, Low back pain M54.5 ; Other chronic pain G89.29 ; Pain in thoracic spine M54.6 and Neck pain M54.2 [place] [id number] [place] [address] 01315- 6626 Dec, 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 and Chronic obstructive pulmonary disease, unspecified COPD type J44.9 [place] [address] [id number] [place] [address] 25683- 2759 Dec, [place] [address] 52577- 8796 Dec, Hypothyroidism, unspecified hypothyroidism type E03.9 [place] [address] 01609- 1677 Oct, Essential hypertension I10 [place] [address] 25146- 5411 Oct, [place] [address] 76619- 0109 Sep, [place] [address] 10019- 9487 Sep, 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 [place] [address] 27284- 3576 Aug, Drug induced constipation K59.03 [place] [address] 83957- 1339 Aug, [place] [address] [place] [id number] [place] [address] 78614- 4754 Jul, Other chronic pain G89.29 [place] [address] 05650- 0846 Jul, [place] [address] 23129- 2520 08 Jul, 2017 Encounter for immunization Z23 ; Well woman exam (no gynecological exam) Z00.00 ; Tobacco use Z72.0 and 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 [place] [address] [id number] [place] [address] 47259- 8720 Jul, [place] [address] 55009- 2513 Jul, Drug induced constipation K59.03 [facility] [address] [address]- 2736 Jun, Chronic obstructive pulmonary disease, unspecified COPD type J44.9 ; Tobacco use Z72.0 ; Hypothyroidism, unspecified hypothyroidism type E03.9 ; Other chronic pain G89.29 ; Drug induced constipation K59.03 and COPD exacerbation J44.1 [facility] [id number] [place] [address] 07964- 5703 Jun, [facility] [id number] [place] [address] 40284- 4169 Jun, [facility] [id number] [place] [address] 66746- 1683 Jun, Osteoporosis M81.0 [facility] [id number] [place] [address] 37406- 2337 Jun, [facility] [id number] [place] [address] 08715- 5721 Jun, Other chronic pain G89.29 [facility] [id number] [place] [address] 75774- 1018 Jun, Other chronic pain G89.29 [facility] [id number] [place] [address] 41845- 2208 Jun, Hypothyroidism, unspecified hypothyroidism type E03.9 [facility] [id number] [place] [address] 21546- 4487 Jun, [facility] [id number] [place] [address] 02518- 8371 May, [facility] [id number] [place] [address] 17789- 8628 May, COPD exacerbation J44.1 ; Pain of left lower extremity M79.605 ; Burn T30.0 ; Fatigue, unspecified type R53.83 ; Anemia, unspecified type D64.9 ; Adverse effect of other opioids, initial encounter T40.2X5A and Drug induced constipation K59.03 [facility] [address] [address]- 7460 May, [facility] [id number] [place] [address] 61848- 4866 May, Burn T30.0 [facility] [id number] [place] [address] 48474- 1854 18 May, 2017 Other chronic pain G89.29 and Burn T30.0 [facility] [id number] [place] [address] 68922- 6410 14 May, 2017 Other chronic pain G89.29 [facility] [id number] [place] [address] 47793- 3990 Apr, [facility] [id number] [place] [address] 56119- 3622 Apr, [facility] [id number] [place] [address] 48628- 0301 Apr, [facility] [id number] [place] [address] 38903- 7642 Apr, [facility] [id number] [place] [address] 46763- 0228 Apr, Other chronic pain G89.29 [facility] [address] [address]- 0114 Apr, Fatigue, unspecified type R53.83 ; Hypothyroidism, unspecified hypothyroidism type E03.9 ; Other chronic pain G89.29 ; Essential hypertension I10 ; Persistent atrial fibrillation I48.1 ; Chronic obstructive pulmonary disease, unspecified COPD type J44.9 ; Nocturnal hypoxia G47.34 ; Irritable bowel syndrome without diarrhea K58.9 ; Hyponatremia E87.1 ; Osteoporosis M81.0 and Primary insomnia F51.01 [facility] [address] [address]- 0112 Feb, [facility] [address] 98255- 1221 January, [place] [address] 86840- 9864 Oct, Essential hypertension I10 [address] 59977- 2588 Sep, Shortness of breath R06.02 ; COPD with exacerbation J44.1 and Weakness R53.1 [place] [address] 21011- 8027 Sep, Drug-induced constipation K59.03 and Allergic rhinitis, unspecified allergic rhinitis trigger, unspecified rhinitis seasonality J30.[address] 53783- 9330 Sep, [place] [address] 70108- 8191 Sep, [place] [address] 43323- 1973 Sep, [address] 56494- 0439 Jul, [place] [address] 63914- 3927 Jul, Other chronic pain G89.29 ; Hematuria R31.9 ; Screening for breast cancer Z12.39 ; Anxiety F41.9 ; Primary insomnia F51.01 ; Drug-induced constipation K59.03 and Encounter for immunization Z23 [place] [address] 12323- 1324 Jul, 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 [place] [address] 05960- 0600 Jun, 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 and Hyponatremia E87.[address] 94165- 2219 Jun, 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 and Hyponatremia E87.1 [place] [address] [place] [id number] [place] [address] 47507- 1806 May, Hyponatremia E87.1 [place] [address] [place] [id number] [place] [address] 62566- 2810 May, Essential hypertension I10 ; Tobacco use Z72.0 ; Hyponatremia E87.1 ; Allergic rhinitis, unspecified allergic rhinitis trigger, unspecified rhinitis seasonality J30.9 and Osteoporosis M81.0 [place] [address] [id number] [place] [address] 99087- 6347 Mar, [place] [address] 25601- 9717 Mar, [place] [address] [id number] [place] [address] 13949- 3449 Mar, Hyponatremia E87.1 [place] [id number] [place] [address] 00963- 3411 Feb, Essential hypertension I10 ; Hypothyroidism, unspecified [...] skin disease without diagnosis Z71.1 [place] [address] [id number] [place] [address] 00850- 0454 Feb, [address] 78332- 1704 Feb, Other nonspecific abnormal finding of lung field R91.8 [place] [id number] [place] [address] 38649- 6668 Dec, [place] [address]- 9935 Dec, [facility] [id number] [place] [address] 93984- 4594 Nov, [facility] [id number] [place] [address] 02745- 2257 Nov, [facility] [id number] [place] [address] 75043- 7079 Oct, [facility] [id number] [place] [address] 12546- 1330 Oct, [facility] [id number] [place] [address] 30765- 3676 Oct, [facility] [id number] [place] [address] 03054- 6578 Aug, Chronic obstructive pulmonary disease, unspecified COPD type J44.9 [facility] [id number] [place] [address] 13130- 3628 Aug, [facility] [id number] [place] [address] 75901- 4837 Aug, Rectal bleeding K62.5 and GERD (gastroesophageal reflux disease) K21.9 [facility] [id number] [place] [address] 49275- 9564 Jul, [facility] [id number] [place] [address] 44324- 5442 Jul, 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 [facility] [id number] [place] [address] 71802- 9429 Jun, [facility] [id number] [place] [address] 31217- 0890 Jun, [facility] [id number] [place] [address] 84813- 4890 May, Adrenal mass 255.9 and Abnormal dexamethasone suppression test 794.6 [facility] [id number] [place] [address] 46763- 0131 May, Adrenal mass 255.9 [facility] [id number] [place] [address] 27757- 9136 May, [facility] [id number] [place] [address] 21979- 0988 18 May, 2015 Pneumonia 486 and COPD (chronic obstructive pulmonary disease) 496 [facility] [address] 83768- 3987 17 May, 2014 [facility] [address] [id number] [place] [address] 31975- 2539 14 May, 2015 [facility] [id number] [place] [address] 53863- 1336 11 May, 2015 [facility] [id number] [place] [address] 91261- 1979 10 May, 2015 [facility] [id number] [place] [address] 42847- 1725 09 May, 2015 [facility] [id number] [place] [address] 47345- 4769 08 May, 2015 [facility] [id number] [place] [address] 33504- 5917 04 May, 2015 Adrenal mass 255.9 [facility] [id number] [place] [address] 84193- 1384 Apr, Adrenal mass 255.9 ; Hypothyroidism 244.9 ; Chronic sore throat 472.1 ; Atrial fibrillation 427.31 ; Hypertension 401.9 ; Generalized anxiety disorder 300.02 ; Chronic pain 338.29 and COPD (chronic obstructive pulmonary disease) 496 [facility] [id number] [place] [address] 75166- 7287 Apr, [facility] [id number] [place] [address] 47364- 2496 Apr, [facility] [id number] [place] [address] 42650- 3480 Mar, [facility] [address] [address]- 3177 Mar, Adrenal mass 255.9 [facility] [address] [address]- 7521 Mar, [facility] [address] [address]- 4084 Mar, Chronic sore throat 472.1 and Adrenal mass 255.9 [facility] [address], [place] [address]- 4467 Mar, [facility] [id number] [place] [address] 43562- 3538 Feb, [facility] [address] [address]- 6106 Feb, [facility] [address] [place] [address] 55383- 6798 Feb, [facility] [address] [address]- 8797 Feb, [facility] [address] [place] [address] 02923- 8326 Feb, [facility] [address] [address]- 2541 Feb, [facility] [address] [address]- 2297 Feb, [facility] [id number] [address]- 8333 Feb, [facility] [address] [address]- 0737 Feb, [facility] [id number] [address]- 5027 January, Adrenal mass 255.9 ; Hypothyroidism 244.9 ; Chronic sore throat 472.1 ; Atrial fibrillation 427.31 ; Hypertension 401.9 ; Generalized anxiety disorder 300.02 ; Chronic pain 338.29 and COPD (chronic obstructive pulmonary disease) 496 [facility] [id number] [address]- 0836 January, [facility] [id number] [address]- 0596 January, [facility] [id number] [place] [address] 67654- 5074 January, Sinusitis 473.9 [facility] [id number] [place] [address] 37647- 2143 January, [facility] [id number] [place] [address] 098125- 9476 January, [facility] [id number] [place] [address] 12904- 8097 Dec, [facility] [id number] [place] [address] 71723- 4042 Dec, [facility] [address] [address]- 5012 Nov, [facility] [address] [address]- 0220 Nov, [facility] [address] [address]- 3189 Nov, [facility] [address] [address]- 9241 Nov, [facility] [address] 3841 Oct, [facility] [address] [address]- 6686 Oct, [facility] [address] [address]- 4276 Oct, [facility] [id number] [place] [address]- 9566 Oct, 2014 [facility] [place] [facility] [address] [id number] [place] [address]- 9437 Oct, 2014 [facility] [place] [facility] [address] [facility] [id number] [place] [address] 2546 Oct, 2014 [facility] [place] [facility] [address] [facility] [id number] [place] [address]- 8356 Oct, 2014 [facility] [place] [facility] [address] [facility] [id number] [place] [address]- 6677 Oct, 2014 [facility] [place] [facility] [address] [facility] [id number] [address]- 4665 Oct, 2014 [facility] [place] [facility] [address] [facility] [id number] [place] [address]- 8263 Oct, 2014 [facility] [place] [facility] [id number] [place] [address]- 6010 Oct, 2014 [facility] [place] [facility] [address] [facility] [id number] [place] [address]- 8343 Oct, 2014 [facility] [place] [facility] [id number] [address]- 4067 Oct, 2014 [facility] [place] [facility] [id number] [address]- 3978 Oct, 2014 [facility] [place] [facility] [address] [facility] [id number] [address] 2545 Oct, 2014 [facility] [place] [facility] [address] [facility] [id number] [place] [address]- 2543 Oct, 2014 [facility] [place] [facility] [address] [facility] [id number] [address]- 6302 Oct, 2014 [facility] [place] [facility] [address] [facility] [id number] [address]- 7351 Oct, 2014 [facility] [place] [facility] [id number] [address]- 9028 Sep, [facility] [address] [facility] [id number] [place] [address]- 7898 Sep, [facility] [address] [facility] [id number] [place] [address]- 7215 May, IMMUNIZATIONS No Known Immunizations SOCIAL HISTORY Never Assessed REASON FOR VISIT Pain Management Consult PLAN OF CARE VITAL SIGNS MEDICATIONS Unknown [...]
--- OUTSIDE RECORDS SUMMARY | 2018-06-29 09:04 | XMS REPORT ---
Author Author SHANICE OBINNA [facility] Address [address] [place] [address] Care Team Providers Care Director Of Home Economics Name Role Phone OBINNA PRASAD Unavailable PROBLEMS Type Condition ICD9-CM Code ZVK83-PH Code Onset Dates Condition Status SNOMED Code Problem Other chronic pain G89.29 Active 98477592 Problem Rectal bleeding K62.5 Active 31355842 Problem 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 Active [id number] Problem Chronic pain syndrome G89.4 Active 571392944 Problem Anxiety F41.9 Active 88365672 Problem T12 compression fracture S22.080A Active 726587373 Problem Allergic rhinitis, unspecified allergic rhinitis trigger, unspecified rhinitis seasonality J30.9 Active 95474529 Problem Osteoporosis M81.0 Active 02341083 Problem Drug induced constipation K59.03 Active 204741956195959 Problem Primary insomnia F51.01 Active 0250539 Problem Other nonspecific abnormal finding of lung field R91.8 Resolved 285001527 Problem Irritable bowel syndrome without diarrhea K58.9 Active 37984794 Problem 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 Active 540481832 Problem Tobacco use Z72.0 Active 927527181 Problem Chronic obstructive pulmonary disease, unspecified COPD type J44.9 Active 66842348 Problem Nocturnal hypoxia G47.34 Active 403392445 Problem Persistent atrial fibrillation I48.1 Active 086153109 Problem Essential hypertension I10 Active 55913424 Problem Hypothyroidism, unspecified hypothyroidism type E03.9 Active 39428562 Problem 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 Active 62946373 ALLERGIES No Information ENCOUNTERS Encounter Location Date Diagnosis [facility] [address] [facility] [place] [id number] [address] Apr, [facility] [address] [facility] [place] [facility] [id number] [place] [address] Apr, Chronic pain syndrome G89.4 [facility] [address] [facility] [place] [facility] [id number] [place] [address] Apr, [facility] [address] [address] 268[address] Mar, [facility] [id number] [address] 6[address] Mar, [facility] [id number] [place] [address] 83875- 6153 Mar, Hypothyroidism, unspecified hypothyroidism type E03.9 [facility] [address] [facility] [place] [facility] [id number] [place] [address] 89700- 8272 Mar, [facility] [id number] [place] [address] 50428- 5720 Mar, Chronic pain syndrome G89.4 [facility] [id number] [place] [address] 00744- 6176 Mar, [facility] [address] [place] [address] 68768- 2648 Mar, Chronic pain syndrome G89.4 [facility] [address] [address] 8[address] Mar, [facility] [address] [address] 9807 Mar, Chronic pain syndrome G89.4 and Other chronic pain G89.29 [facility] [address] [address] 555[address] Feb, Chronic obstructive pulmonary disease, unspecified COPD type J44.9 [facility] [address] [facility] [place] [id number] [place] [address]- 12[address] Feb, [facility] [id number] [address] 1225 Feb, [facility] [address] [address] 2222 Feb, [facility] [address] [address] 0227 Feb, [facility] [address] [address] 0045 Feb, [facility] [address] [address] 2785 Feb, Other chronic pain G89.29 ; Rectal bleeding K62.5 and Chronic pain syndrome G89.4 [facility] [id number] [place] [address] 73523- 0510 15 Feb, 2018 [facility] [id number] [place] [address] 57603- 2407 Feb, [facility] [address] [place] [address] 56585- 9301 05 Feb, 2018 Other chronic pain G89.29 ; Essential hypertension I10 ; Osteoporosis M81.0 ; Drug induced constipation K59.03 ; Chronic obstructive pulmonary disease, unspecified COPD type J44.9 ; Hypothyroidism, unspecified hypothyroidism type E03.9 ; 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 ; Right ear pain H92.01 and Sore throat J02.9 [facility] [address] [address] 14[address] January, [facility] [address] [address] 7048 January, Low back pain M54.5 ; Other chronic pain G89.29 ; Pain in thoracic spine M54.6 and Neck pain M54.2 [facility] [address] [address] 5607 Dec, Low back pain M54.5 ; Other chronic pain G89.29 ; Pain in thoracic spine M54.6 and Neck pain M54.2 [facility] [address] [address] 3464 Dec, 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 and Chronic obstructive pulmonary disease, unspecified COPD type J44.9 [place] [id number] [place] [address] 73321- 1880 Dec, [place] [address] [address]- 1649 Dec, Hypothyroidism, unspecified hypothyroidism type E03.9 [place] [facility] [address] 47247- 4334 Oct, Essential hypertension I10 [place] [address] [address]25- 5721 Oct, [place] [address] 22236- 9058 Sep, [place] [address] 91329- 2258 Sep, 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 [place] [address] 50916- 4375 Aug, Drug induced constipation K59.03 [place] [address] 41520- 9017 Aug, [place] [address] 62648- 1381 10 Jul, 2017 Other chronic pain G89.29 [facility] [address] 21438- 5996 Jul, [facility] [id number] [place] [address] 67119- 9286 Jul, Encounter for immunization Z23 ; Well woman exam (no gynecological exam) Z00.00 ; Tobacco use Z72.0 and 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 [facility] [id number] [place] [address] 52642- 9796 02 Jul, 2017 [place] [facility] [address] 58042- 7303 Jul, Drug induced constipation K59.03 [facility] [address] [address]- 7489 Jun, Chronic obstructive pulmonary disease, unspecified COPD type J44.9 ; Tobacco use Z72.0 ; Hypothyroidism, unspecified hypothyroidism type E03.9 ; Other chronic pain G89.29 ; Drug induced constipation K59.03 and COPD exacerbation J44.1 [facility] [id number] [place] [address] 25727- 1049 Jun, [facility] [id number] [place] [address] 24273- 1770 Jun, [facility] [id number] [place] [address] 83819- 9785 Jun, Osteoporosis M81.0 [facility] [id number] [place] [address] 31962- 9652 Jun, [facility] [id number] [place] [address] 65592- 0145 Jun, Other chronic pain G89.29 [facility] [id number] [place] [address] 36636- 7025 Jun, Other chronic pain G89.29 [facility] [id number] [place] [address] 86330- 3633 Jun, Hypothyroidism, unspecified hypothyroidism type E03.9 [facility] [id number] [place] [address] 91027- 6117 Jun, [facility] [address] [place] [address] 11217- 7912 May, [facility] [id number] [place] [address] 28274- 1525 May, COPD exacerbation J44.1 ; Pain of left lower extremity M79.605 ; Burn T30.0 ; Fatigue, unspecified type R53.83 ; Anemia, unspecified type D64.9 ; Adverse effect of other opioids, initial encounter T40.2X5A and Drug induced constipation K59.03 [facility] [address] [address]- 0179 May, [facility] [id number] [place] [address] 31715- 7151 May, Burn T30.0 [facility] [id number] [place] [address] 17399- 1193 18 May, 2017 Other chronic pain G89.29 and Burn T30.0 [facility] [id number] [place] [address] 26769- 8071 14 May, 2017 Other chronic pain G89.29 [facility] [id number] [place] [address] 93503- 1956 Apr, [facility] [id number] [place] [address] 86273- 5245 Apr, [facility] [id number] [place] [address] 75525- 9325 Apr, [facility] [id number] [place] [address] 98779- 3146 Apr, [facility] [id number] [place] [address] 77797- 0624 Apr, Other chronic pain G89.29 [facility] [id number] [place] [address] 59388- 8951 Apr, Fatigue, unspecified type R53.83 ; Hypothyroidism, unspecified hypothyroidism type E03.9 ; Other chronic pain G89.29 ; Essential hypertension I10 ; Persistent atrial fibrillation I48.1 ; Chronic obstructive pulmonary disease, unspecified COPD type J44.9 ; Nocturnal hypoxia G47.34 ; Irritable bowel syndrome without diarrhea K58.9 ; Hyponatremia E87.1 ; Osteoporosis M81.0 and Primary insomnia F51.01 [facility] [address] [place] [address] 32364- 2450 Feb, [facility] [id number] [place] [address] 49153- 6034 January, [address] 29797- 2208 Oct, Essential hypertension I10 [address] 92397- 9674 Sep, Shortness of breath R06.02 ; COPD with exacerbation J44.1 and Weakness R53.[address] 77069- 3143 Sep, Drug-induced constipation K59.03 and Allergic rhinitis, unspecified allergic rhinitis trigger, unspecified rhinitis seasonality J30.[address] 11362- 4831 Sep, [address] 10714- 4017 Sep, [address] 41805- 4636 Sep, [address] 44993- 9607 Jul, [address] 77402- 4081 Jul, Other chronic pain G89.29 ; Hematuria R31.9 ; Screening for breast cancer Z12.39 ; Anxiety F41.9 ; Primary insomnia F51.01 ; Drug-induced constipation K59.03 and Encounter for immunization Z23 [address] [id number] [place] [address] 93779- 3720 Jul, 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 97894- 3414 Jun, 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 and Hyponatremia E87.[address] 46659- 7808 Jun, 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 and Hyponatremia E87.1 [facility] [facility] [id number] [place] [address] 16233- 3823 May, Hyponatremia E87.1 [place] [id number] [place] [address] 04572- 7547 May, Essential hypertension I10 ; Tobacco use Z72.0 ; Hyponatremia E87.1 ; Allergic rhinitis, unspecified allergic rhinitis trigger, unspecified rhinitis seasonality J30.9 and Osteoporosis M81.0 [place] [id number] [place] [address] 52061- 4734 Mar, [place] [address] 86303- 1658 Mar, [place] [id number] [place] [address] 90486- 6903 Mar, Hyponatremia E87.1 [place] [facility] [id number] [place] [address] 87216- 9245 Feb, Essential hypertension I10 ; Hypothyroidism, unspecified [...] Concern about skin disease without diagnosis Z71.1 [place] [address] [place] [address] 66196- 6223 Feb, [address] [id number] [place] [address] 57346- 9052 Feb, Other nonspecific abnormal finding of lung field R91.8 [address] [place] [id number] [place] [address] 78689- 1505 Dec, [address] [place] [address] 45339- 9250 Dec, [facility] [id number] [place] [address] 32408- 1896 Nov, [facility] [id number] [place] [address] 45938- 0603 Nov, [facility] [id number] [place] [address] 87753- 5721 Oct, [facility] [id number] [place] [address] 04630- 0526 Oct, [facility] [id number] [place] [address] 88627- 8449 Oct, [facility] [id number] [place] [address] 71920- 6470 Aug, Chronic obstructive pulmonary disease, unspecified COPD type J44.9 [facility] [id number] [place] [address] 66619- 1261 Aug, [facility] [id number] [place] [address] 00908- 4719 Aug, Rectal bleeding K62.5 and GERD (gastroesophageal reflux disease) K21.9 [facility] [id number] [place] [address] 38539- 5609 Jul, [facility] [id number] [place] [address] 34929- 0553 Jul, 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 [facility] [id number] [place] [address] 60360- 4978 Jun, [facility] [id number] [place] [address] 31676- 7089 Jun, [facility] [id number] [place] [address] 57831- 6940 23 May, 2015 Adrenal mass 255.9 and Abnormal dexamethasone suppression test 794.6 [facility] [address] [address]- 8373 May, Adrenal mass 255.9 [facility] [id number] [place] [address] 94204- 9667 21 May, 2015 [facility] [address] [place] [address] 59339- 2588 18 May, 2015 Pneumonia 486 and COPD (chronic obstructive pulmonary disease) 496 [facility] [id number] [place] [address] 06873- 1650 17 May, 2014 [facility] [id number] [place] [address] 00511- 8518 14 May, 2015 [facility] [id number] [place] [address] 69982- 3265 11 May, 2015 [facility] [id number] [place] [address] 21948- 3878 10 May, 2015 [facility] [address] [place] [address] 93692- 1356 09 May, 2015 [facility] [address] [place] [address] 81156- 1321 08 May, 2015 [facility] [address] [place] [address] 42154- 3124 04 May, 2015 Adrenal mass 255.9 [facility] [address] [place] [address] 71943- 7560 Apr, Adrenal mass 255.9 ; Hypothyroidism 244.9 ; Chronic sore throat 472.1 ; Atrial fibrillation 427.31 ; Hypertension 401.9 ; Generalized anxiety disorder 300.02 ; Chronic pain 338.29 and COPD (chronic obstructive pulmonary disease) [address] [facility] [address] [place] [address] 68328- 5360 Apr, [facility] [address] [place] [address] 50850- 5951 Apr, [facility] [id number] [place] [address] 87320- 2154 Mar, [facility] [id number] [address]- 8326 Mar, Adrenal mass 255.9 [facility] [address] [address]- 0263 Mar, [facility] [address] [address]- 9153 Mar, Chronic sore throat 472.1 and Adrenal mass 255.9 [facility] [address] [address]- 0738 Mar, [facility] [address] [address]- 0567 Feb, [facility] [address] [address]- 1184 Feb, [facility] [address] [address]- 0795 Feb, [facility] [address] [address]- 6118 Feb, [facility] [address] [address]- 9395 Feb, [facility] [id number] [address]- 3817 Feb, [facility] [id number] [address]- 8688 Feb, [facility] [id number] [address]- 0640 Feb, [facility] [address] [address]- 8038 Feb, [facility] [id number] [address]- 1077 January, Adrenal mass 255.9 ; Hypothyroidism 244.9 ; Chronic sore throat 472.1 ; Atrial fibrillation 427.31 ; Hypertension 401.9 ; Generalized anxiety disorder 300.02 ; Chronic pain 338.29 and COPD (chronic obstructive pulmonary disease) 496 [facility] [address] [address]- 5476 January, [facility] [address] [address]- 1836 January, [facility] [id number] [place] [address] 68927- 9071 January, Sinusitis 473.9 [facility] [address] [address]- 0635 January, [facility] [address] [address]- 6836 January, [facility] [address] [address]- 6043 Dec, [facility] [address] [address]- 5793 Dec, [facility] [address] [address]- 2194 Nov, [facility] [address] [address]- 2994 Nov, [facility] [address] [address]- 3930 Nov, [facility] [address] [address]- 6894 Nov, [facility] [address] [address]- 4114 Oct, [facility] [address] [address]- 7216 Oct, [facility] [address] [address]- 9496 Oct, [facility] [address] [place] [address]- 4256 Oct, 2014 [facility] [place] [facility] [address] [id number] [place] [address]- 6376 Oct, 2014 [facility] [place] [facility] [address] [id number] [place] [address]- 7356 Oct, 2014 [facility] [place] [facility] [address] [facility] [place] [id number] [place] [address]- 6873 Oct, 2014 [facility] [place] [facility] [address] [id number] [place] [address]- 7694 Oct, 2014 [facility] [place] [facility] [address] [id number] [place] [address]- 2606 Oct, 2014 [facility] [place] [facility] [address] [facility] [place] [id number] [place] [address]- 8458 Oct, 2014 [facility] [place] [facility] [address] [facility] [place] [id number] [place] [address]- 9544 Oct, 2014 [facility] [place] [facility] [address] [facility] [place] [id number] [place] [address]- 1450 Oct, 2014 [facility] [place] [facility] [address] [facility] [place] [id number] [place] [address]- 9538 Oct, 2014 [facility] [place] [facility] [address] [facility] [place] [id number] [place] [address]- 4171 Oct, 2014 [facility] [place] [facility] [address] [facility] [place] [id number] [address]- 9690 Oct, 2014 [facility] [place] [facility] [address] [facility] [place] [id number] [place] [address]- 2548 Oct, 2014 [facility] [place] [facility] [address] [facility] [place] [id number] [address]- 3880 Oct, 2014 [facility] [place] [facility] [address] [facility] [place] [id number] [place] [address]- 0401 Oct, 2014 [facility] [place] [facility] [address] [facility] [place] [id number] [place] [address]- 0561 Sep, [facility] [address] [facility] [place] [id number] [place] [address]- 6282 Sep, [facility] [address] [facility] [place] [id number] [place] [address]- 1941 May, IMMUNIZATIONS No Known Immunizations SOCIAL HISTORY Never Assessed REASON FOR VISIT Controlled refill request PLAN OF CARE VITAL SIGNS MEDICATIONS Unknown [...]
--- OUTSIDE RECORDS SUMMARY | 2018-06-29 09:04 | XMS REPORT ---
Author Author SHANICE OBINNA [facility] Address [address] [place] [address] Care Team Providers Care Lpta Name Role Phone OBINNA PRASAD Unavailable PROBLEMS Type Condition ICD9-CM Code RQQ47-SS Code Onset Dates Condition Status SNOMED Code Problem Other chronic pain G89.29 Active 92197213 Problem Rectal bleeding K62.5 Active 94940952 Problem 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 Active 9602722359956410 Problem Chronic pain syndrome G89.4 Active 548258017 Problem Anxiety F41.9 Active 47132207 Problem T12 compression fracture S22.080A Active 948655452 Problem Allergic rhinitis, unspecified allergic rhinitis trigger, unspecified rhinitis seasonality J30.9 Active 89738047 Problem Osteoporosis M81.0 Active 15771718 Problem Drug induced constipation K59.03 Active 061015246030507 Problem Primary insomnia F51.01 Active 8744224 Problem Other nonspecific abnormal finding of lung field R91.8 Resolved 651158151 Problem Irritable bowel syndrome without diarrhea K58.9 Active 86018189 Problem 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 Active 452074205 Problem Tobacco use Z72.0 Active 589875867 Problem Chronic obstructive pulmonary disease, unspecified COPD type J44.9 Active 94844240 Problem Nocturnal hypoxia G47.34 Active 760087501 Problem Persistent atrial fibrillation I48.1 Active 935894752 Problem Essential hypertension I10 Active 34162890 Problem Hypothyroidism, unspecified hypothyroidism type E03.9 Active 35868307 Problem 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 Active 46885368 ALLERGIES Substance Reaction Event Type Date Status Hydrocodone Bitartrate Unknown Drug Allergy Feb, Active Coumadin Unknown Drug Allergy Feb, Active ENCOUNTERS Encounter Location Date Diagnosis [facility] [id number] [address] Apr, [facility] [id number], [place] [address] 1413 Apr, Chronic pain syndrome G89.4 [facility] [address] [facility] [id number] [place] [address] 9847 Apr, [facility] [address] [facility] [id number], [place] [address] 0201 Mar, [facility] [address] [facility] [id number] [place] [address] 25972- 2834 Mar, [facility] [address] [facility] [id number] [place] [address] 50863- 5879 Mar, Hypothyroidism, unspecified hypothyroidism type E03.9 [facility] [address] [facility] [id number] [place] [address] 89707- 2529 Mar, [facility] [id number] [place] [address] 45675- 2685 Mar, Chronic pain syndrome G89.4 [facility] [address] [facility] [id number], [place] [address]- 9366 Mar, [facility] [address] [facility] [id number], [place] [address]- 7632 Mar, Chronic pain syndrome G89.4 [facility] [id number] [address]- 8156 Mar, [facility] [id number] [address] 4575 Mar, Chronic pain syndrome G89.4 and Other chronic pain G89.29 [facility] [address] [facility] [id number], [place] [address] 3431 Feb, Chronic obstructive pulmonary disease, unspecified COPD type J44.9 [facility] [address] [facility] [id number], [place] [address]- 4471 Feb, [facility] [address] [facility] [id number], [place] [address]- 7261 Feb, [place] [id number] [place] [address] 05194- 2262 Feb, [facility] [id number] [place] [address] 74700- 1314 Feb, [facility] [id number] [place] [address] 78007- 1283 Feb, [place] [address] 47196- 0782 Feb, Other chronic pain G89.29 ; Rectal bleeding K62.5 and Chronic pain syndrome G89.4 [place] [address] 41749- 2497 Feb, [place] [id number] [place] [address] 44229- 2365 Feb, [place] [id number] [place] [address] 45630- 4726 Feb, Other chronic pain G89.29 ; Essential hypertension I10 ; Osteoporosis M81.0 ; Drug induced constipation K59.03 ; Chronic obstructive pulmonary disease, unspecified COPD type J44.9 ; Hypothyroidism, unspecified hypothyroidism type E03.9 ; 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 ; Right ear pain H92.01 and Sore throat J02.9 [place] [id number] [place] [address] 28683- 2537 January, [place] [id number] [place] [address] 85515- 4289 January, Low back pain M54.5 ; Other chronic pain G89.29 ; Pain in thoracic spine M54.6 and Neck pain M54.2 [place] [id number] [place] [address] 13013- 7530 Dec, Low back pain M54.5 ; Other chronic pain G89.29 ; Pain in thoracic spine M54.6 and Neck pain M54.2 [place] [address] [place] [address] [address]- 2722 Dec, 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 and Chronic obstructive pulmonary disease, unspecified COPD type J44.9 [place] [address] 83212- 6479 Dec, [place] [address] 83643- 8009 Dec, Hypothyroidism, unspecified hypothyroidism type E03.9 [place] [address] 04084- 7356 Oct, Essential hypertension I10 [place] [address] 91742- 5603 Oct, [place] [address] 39970- 2099 Sep, [place] [address] 22803- 1807 Sep, 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 [place] [address] 60174- 7046 Aug, Drug induced constipation K59.03 [place] [address] 98127- 1905 Aug, [place] [address] 32163- 6963 Jul, Other chronic pain G89.29 [place] [address] 32108- 7186 Jul, [place] [address] 47848- 6102 Jul, Well woman exam (no gynecological exam) Z00.00 ; Encounter for immunization Z23 ; Tobacco use Z72.0 and 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 [place] [address] 04211- 6370 Jul, [facility] [address], [place] [address]- 8399 Jul, Drug induced constipation K59.03 [facility] [address], [place] [address]- 0436 Jun, Chronic obstructive pulmonary disease, unspecified COPD type J44.9 ; Tobacco use Z72.0 ; Hypothyroidism, unspecified hypothyroidism type E03.9 ; Other chronic pain G89.29 ; Drug induced constipation K59.03 and COPD exacerbation J44.1 [facility] [address], [place] [address]- 7756 Jun, [facility] [id number] [place] [address] 46856- 5052 Jun, [facility] [id number] [place] [address] 39879- 0074 Jun, Osteoporosis M81.0 [facility] [id number] [place] [address] 85545- 2856 Jun, [facility] [id number] [place] [address] 02899- 6647 Jun, Other chronic pain G89.29 [facility] [address] [place] [address] 70581- 5669 Jun, Other chronic pain G89.29 [facility] [address], [place] [address]- 1273 Jun, Hypothyroidism, unspecified hypothyroidism type E03.9 [facility] [address], [place] [address]- 5761 Jun, [facility] [id number] [place] [address] 58307- 1744 May, [facility] [address], [place] [address]- 7105 May, COPD exacerbation J44.1 ; Pain of left lower extremity M79.605 ; Burn T30.0 ; Fatigue, unspecified type R53.83 ; Anemia, unspecified type D64.9 ; Adverse effect of other opioids, initial encounter T40.2X5A and Drug induced constipation K59.03 [facility] [id number] [place] [address] 80457- 9334 May, [facility] [id number] [place] [address] 15631- 4911 May, Burn T30.0 [facility] [address] 976944- 5852 18 May, 2017 Other chronic pain G89.29 and Burn T30.0 [place] [address] 84686- 7493 14 May, 2017 Other chronic pain G89.29 [place] [address] 07485- 7134 Apr, [place] [address] 40124- 6690 Apr, [facility] [id number] [place] [address] 63000- 1951 Apr, [place] [id number] [place] [address] 83721- 0889 Apr, [place] [id number] [place] [address] 14093- 0188 Apr, Other chronic pain G89.29 [facility] [address] 55087- 0258 Apr, Fatigue, unspecified type R53.83 ; Hypothyroidism, unspecified hypothyroidism type E03.9 ; Other chronic pain G89.29 ; Essential hypertension I10 ; Persistent atrial fibrillation I48.1 ; Chronic obstructive pulmonary disease, unspecified COPD type J44.9 ; Nocturnal hypoxia G47.34 ; Irritable bowel syndrome without diarrhea K58.9 ; Hyponatremia E87.1 ; Osteoporosis M81.0 and Primary insomnia F51.01 [facility] [address] 54169- 5716 14 Feb, 2017 [place] [address] 24365- 7979 January, [facility] [address] 09702- 0960 13 Oct, 2016 Essential hypertension I10 [address] 14078- 2825 Sep, Shortness of breath R06.02 ; COPD with exacerbation J44.1 and Weakness R53.[address] 28579- 0094 Sep, Drug-induced constipation K59.03 and Allergic rhinitis, unspecified allergic rhinitis trigger, unspecified rhinitis seasonality J30.[address] 17885- 7845 Sep, [place] [address] 62316- 1295 Sep, [place] [address] 21346- 6175 Sep, [place] [address] 80431- 9063 Jul, [address] 68542- 1918 17 Jul, 2016 Other chronic pain G89.29 ; Hematuria R31.9 ; Screening for breast cancer Z12.39 ; Anxiety F41.9 ; Primary insomnia F51.01 ; Drug-induced constipation K59.03 and Encounter for immunization Z23 [address] 16636- 2937 02 Jul, 2016 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 [place] [address] 07436- 7492 26 Jun, 2016 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 and Hyponatremia E87.[id number] [place] [address] 24847- 6060 Jun, 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 and Hyponatremia E87.1 [id number] [place] [address] 21142- 1197 May, Hyponatremia E87.[address] 64326- 6592 May, Essential hypertension I10 ; Tobacco use Z72.0 ; Hyponatremia E87.1 ; Allergic rhinitis, unspecified allergic rhinitis trigger, unspecified rhinitis seasonality J30.9 and Osteoporosis M81.[address] 06299- 8355 Mar, [address] 85838- 6007 Mar, [address] 49940- 4867 Mar, Hyponatremia E87.1 [id number] [place] [address] 71388- 1429 Feb, Essential hypertension I10 ; Hypothyroidism, unspecified [...] Concern about skin disease without diagnosis Z71.1 [id number] [place] [address] 47408- 9747 Feb, [id number] [place] [address] 85652- 9279 Feb, Other nonspecific abnormal finding of lung field R91.[address] [place] [address]- 8354 Dec, [facility] [address] [place] [address] 98651- 8392 Dec, [facility] [address] [place] [address] 754025- 7683 Nov, [facility] [id number] [place] [address] 572131- 5439 Nov, [facility] [id number] [place] [address] 18309- 6195 Oct, [facility] [id number] [place] [address] 71838- 0339 Oct, [facility] [id number] [place] [address] 02761- 0419 Oct, [facility] [id number] [place] [address] 29346- 0382 Aug, Chronic obstructive pulmonary disease, unspecified COPD type J44.9 [facility] [id number] [place] [address] 81247- 5402 Aug, [facility] [id number] [place] [address] 95127- 7586 Aug, Rectal bleeding K62.5 and GERD (gastroesophageal reflux disease) K21.9 [facility] [id number] [place] [address] 30058- 1077 Jul, [facility] [id number] [place] [address] 81096- 7225 Jul, 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 [facility] [id number] [place] [address] 815168- 4919 Jun, [facility] [id number] [place] [address] 93902- 4092 Jun, [facility] [id number] [place] [address] 87051- 8620 23 May, 2015 Adrenal mass 255.9 and Abnormal dexamethasone suppression test 794.6 [facility] [id number] [place] [address] 03379- 1439 May, Adrenal mass 255.9 [facility] [id number] [place] [address] 58191- 8202 May, [facility] [address] 97959- 9060 18 May, 2015 Pneumonia 486 and COPD (chronic obstructive pulmonary disease) 496 [facility] [address] 03482- 9195 17 May, 2015 [facility] [address] 16400- 3188 14 May, 2015 [facility] [address] 43900- 8348 11 May, 2015 [facility] [address] 78874- 8112 10 May, 2015 [facility] [id number] [place] [address] 11491- 5099 09 May, 2015 [facility] [id number] [place] [address] 35400- 5493 08 May, 2015 [facility] [id number] [place] [address] 47714- 7373 04 May, 2015 Adrenal mass 255.9 [facility] [id number] [place] [address] 86329- 0712 Apr, Adrenal mass 255.9 ; Hypothyroidism 244.9 ; Chronic sore throat 472.1 ; Atrial fibrillation 427.31 ; Hypertension 401.9 ; Generalized anxiety disorder 300.02 ; Chronic pain 338.29 and COPD (chronic obstructive pulmonary disease) 496 [facility] [id number] [place] [address] 84110- 3781 Apr, [facility] [address] 87606- 4957 Apr, [facility] [address] [place] [address] 34790- 1381 Mar, [facility] [address] [place] [address] 58368- 0979 Mar, Adrenal mass 255.9 [facility] [id number] [place] [address] 71019- 1901 Mar, [facility] [id number] [place] [address] 69712- 4493 Mar, Chronic sore throat 472.1 and Adrenal mass 255.9 [facility] [id number] [place] [address] 03723- 2589 Mar, [facility] [id number] [place] [address] 11360- 0703 Feb, [facility] [id number] [place] [address] 97708- 6421 Feb, [facility] [address] [place] [address] 39740- 6923 Feb, [facility] [id number] [place] [address] 36373- 7551 Feb, [facility] [address] [place] [address] 33265- 5193 Feb, [facility] [address] [place] [address] 95046- 4591 Feb, [facility] [place] [facility] [address] [place] [address] 28119- 3351 Feb, [facility] [place] [facility] [id number] [place] [address] 89769- 9477 Feb, [facility] [place] [facility] [address], [place] [address]- 9487 Feb, [facility] [place] [facility] [address] [place] [address] 09320- 3916 January, Adrenal mass 255.9 ; Hypothyroidism 244.9 ; Chronic sore throat 472.1 ; Atrial fibrillation 427.31 ; Hypertension 401.9 ; Generalized anxiety disorder 300.02 ; Chronic pain 338.29 and COPD (chronic obstructive pulmonary disease) 496 [facility] [address], [place] [address]- 9856 January, [facility] [id number] [place] [address] 10887- 7949 January, [facility] [id number] [place] [address] 54316- 7390 January, Sinusitis 473.9 [facility] [id number] [place] [address] 93761- 3179 January, [facility] [id number] [place] [address] 22655- 4516 January, [facility] [id number] [place] [address] 35123- 2367 Dec, [facility] [id number] [place] [address] 28911- 2764 Dec, [facility] [id number] [place] [address] 612326- 9149 Nov, [facility] [address], [place] [address]- 1676 Nov, [facility] [address], [place] [address]- 2158 Nov, [facility] [address], [place] [address]- 1255 Nov, [facility] [id number] [place] [address] 94528- 1966 Oct, [facility] [address], [place] [address]- 4016 Oct, [facility] [id number] [place] [address]- 5234 Oct, 2014 [facility] [place] [facility] [address] [facility] [id number] [place] [address]- 3116 Oct, 2014 [facility] [place] [facility] [address] [facility] [id number] [place] [address]- 2546 Oct, 2014 [facility] [place] [facility] [address] [facility] [id number] [place] [address]- 7475 Oct, 2014 [facility] [place] [facility] [address] [facility] [id number] [place] [address]- 4610 Oct, 2014 [facility] [place] [facility] [address] [facility] [id number] [place] [address]- 3977 Oct, 2014 [facility] [place] [facility] [address] [facility] [id number] [place] [address]- 5918 Oct, 2014 [facility] [place] [facility] [id number] [place] [address]- 1965 Oct, 2014 [facility] [place] [facility] [address] [facility] [id number] [place] [address]- 4938 Oct, 2014 [facility] [place] [facility] [id number] [place] [address]- 8166 Oct, 2014 [facility] [place] [facility] [id number] [address]- 1968 Oct, 2014 [facility] [place] [facility] [address] [facility] [id number], [place] [address]- 2541 Oct, 2014 [facility] [place] [facility] [address] [facility] [id number] [place] [address]- 3419 Oct, 2014 [facility] [place] [facility] [address] [facility] [id number] [place] [address]- 8557 Oct, 2014 [facility] [place] [facility] [address] [facility] [id number], [place] [address]- 4593 Oct, 2014 [facility] [place] [facility] [address] [facility] [id number], [place] [address]- 7066 Oct, [facility] [address] [facility] [id number], [place] [address]- 0386 Sep, [facility] [address] [facility] [id number], [place] [address]- 6456 Sep, [facility] [address] [facility] [id number], [place] [address]- 7596 May, IMMUNIZATIONS No Known Immunizations SOCIAL HISTORY Never Assessed REASON FOR VISIT Pain management (chronic)-twoodenma, sore throat, and ear aches , pt would like a toradol shot for pain PLAN OF CARE Activity Details Follow Up 3 Months Reason:HTN VITAL SIGNS Height 64 in 2018-02-14 Weight 138.0 lbs 2018-02-14 Temperature 98.5 degrees Fahrenheit 2018-02-14 Heart Rate 70 bpm 2018-02-14 Respiratory Rate 18 2018-02-14 Oximetry ambulating w/o oxygen:96 % 2018-02-14 BMI 23.69 kg/m2 2018-02-14 Blood pressure systolic 148 mmHg 2018-02-14 Blood pressure diastolic 96 mmHg 2018-02-14 MEDICATIONS Medication Instructions Dosage Frequency Start Date End Date Duration Status Hydrocodone-Acetaminophen 5-325 MG Orally 2 times a day 1 tablet as needed 12h Feb, Feb, 14 days Active Oxygen Active Loratadine 10 MG Orally Once a day 1 Tablet by Oral route 1 time per day 24h Active Relistor 150 MG Orally Once a day 3 tablets 24h 26 May, 2017 Aug, 30 day(s) Active Metoprolol Succinate 200 mg take 1 tablet (200 mg) by oral route once daily Sep, Active Levothyroxine Sodium 75 MCG 1 TABLET ONCE A DAY ORALLY 30 DAYS Active OxyContin 15 mg Orally every 12 hrs 1 tablet 12h May, Not- Taking Duloxetine HCl 60 mg Orally Twice a day 1 capsule 12h 30 Active Omeprazole 20 mg Orally Once a day 1 capsule 24h 09 May, 2015 30 days Active Fluticasone Propionate 50 MCG/ACT Nasally Once a day 1 spray in each nostril 24h 27 May, 2016 Active Pradaxa 150 mg take 1 capsule (150 mg) by oral route 2 times per day Sep, Active Lisinopril 20 MG Orally Once a day 1 tablet 24h 90 days Active Incruse Ellipta 62.5 MCG/INH 1 puff Once a day Inhalation Active Ventolin HFA 108 (90 Base) MCG/ACT Inhalation every 4 hrs 2 puffs as needed 4h Active Cardizem CD 360 mg take 1 capsule (360 mg) by oral route once daily Sep, Active Albuterol Sulfate (2.5 MG/3ML) 0.083% USE 1 VIAL ( 3 ML ) EVERY 4 HOURS NEEDED Active Alendronate Sodium 70 MG Orally by oral route once weekly in the morning, at least 30 min before first food, beverage, or medication of day 1 tablet Feb, Active Mirtazapine 30 MG TAKE 1 TABLET BY MOUTH AT BEDTIME ONCE A DAY 90 Active Symbicort 160-4.5 mcg/actuation inhale 2 puffs by inhalation route 2 times per day in the morning and evening Nov, Active Furosemide 20 mg TAKE 1 TABLET BY MOUTH EVERY DAY NEEDED 30 Active RESULTS No Results PROCEDURES Procedure Date Ordered Result Body Site [facility] VISIT ESTABLISHED PATIENT February 14, 2018 INSTRUCTIONS MEDICATIONS ADMINISTERED No Known Medications [...]
[2018-06-29] MEDS ORDERED: fentaNYL INJECTION 100 MCG/2 ML AMP ONE ×2 (09:05→11:28)
--- OUTSIDE RECORDS SUMMARY | 2018-06-29 09:05 | XMS REPORT ---
Author Author SHANICE OBINNA [facility] Address [address] [place] [address] Care Team Providers Care Museum Exhibit Designer Name Role Phone OBINNA PRASAD Unavailable PROBLEMS Type Condition ICD9-CM Code BAS20-VW Code Onset Dates Condition Status SNOMED Code Problem Other chronic pain G89.29 Active 25038907 Problem Rectal bleeding K62.5 Active 53261786 Problem 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 Active 7133727477375510 Problem Chronic pain syndrome G89.4 Active 082328537 Problem Anxiety F41.9 Active 49049580 Problem T12 compression fracture S22.080A Active 568044145 Problem Allergic rhinitis, unspecified allergic rhinitis trigger, unspecified rhinitis seasonality J30.9 Active 68620961 Problem Osteoporosis M81.0 Active 59428680 Problem Drug induced constipation K59.03 Active 144242955502586 Problem Primary insomnia F51.01 Active 3255541 Problem Other nonspecific abnormal finding of lung field R91.8 Resolved 491908431 Problem Irritable bowel syndrome without diarrhea K58.9 Active 84264464 Problem 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 Active 229642285 Problem Tobacco use Z72.0 Active 627140845 Problem Chronic obstructive pulmonary disease, unspecified COPD type J44.9 Active 63688253 Problem Nocturnal hypoxia G47.34 Active 525228858 Problem Persistent atrial fibrillation I48.1 Active 591001864 Problem Essential hypertension I10 Active 66913891 Problem Hypothyroidism, unspecified hypothyroidism type E03.9 Active 63575828 Problem 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 Active 31082027 ALLERGIES No Information ENCOUNTERS Encounter Location Date Diagnosis [facility], [place] [address] [facility] [id number] [place] [address] Apr, [facility], [place] [address] [id number] [address] 8[address] Apr, [facility], [place] [address] [facility] [id number] [place] [address] 6190 Mar, [facility], [place] [address] [facility] [id number] [place] [address] Mar, [facility], [place] [address] [facility] [id number] [place] [address] Mar, Hypothyroidism, unspecified hypothyroidism type E03.9 [facility], [place] [address] [facility] [id number] [place] [address] 7[address] Mar, [facility], [place] [address] [facility] [id number] [place] [address] 82386- 2267 Mar, Chronic pain syndrome G89.4 [facility], [place] [address] [place] [address] 225[address] Mar, [facility], [place] [address] [place] [address] 12782- 3628 Mar, Chronic pain syndrome G89.4 [facility], [place] [address] [facility] [id number] [place] [address] 4857 Mar, [facility], [place] [address] [address] 7101 Mar, Chronic pain syndrome G89.4 and Other chronic pain G89.29 [facility], [place] [address] [facility] [id number] [place] [address] Feb, Chronic obstructive pulmonary disease, unspecified COPD type J44.9 [facility], [place] [address] [facility] [id number] [place] [address]- 6103 Feb, [facility], [place] [address] [facility] [id number] [place] [address]- 9284 Feb, [facility], [place] [address] [facility] [id number] [place] [address]- 0198 Feb, [facility], [place] [address] [address] 3176 Feb, [place] [address] [place] [address] 24298- 3675 Feb, [place] [id number] [place] [address] 27385- 1555 Feb, Other chronic pain G89.29 ; Rectal bleeding K62.5 and Chronic pain syndrome G89.4 [place] [id number] [place] [address] 83151- 9732 15 Feb, 2018 [place] [id number] [place] [address] 08318- 0502 14 Feb, 2018 [place] [id number] [place] [address] 59401- 9903 Feb, Other chronic pain G89.29 ; Essential hypertension I10 ; Osteoporosis M81.0 ; Drug induced constipation K59.03 ; Chronic obstructive pulmonary disease, unspecified COPD type J44.9 ; Hypothyroidism, unspecified hypothyroidism type E03.9 ; 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 ; Right ear pain H92.01 and Sore throat J02.9 [place] [id number] [place] [address] 02703- 1807 January, [place] [id number] [place] [address] 41249- 6506 January, Low back pain M54.5 ; Other chronic pain G89.29 ; Pain in thoracic spine M54.6 and Neck pain M54.2 [place] [id number] [place] [address] 44434- 9702 Dec, Low back pain M54.5 ; Other chronic pain G89.29 ; Pain in thoracic spine M54.6 and Neck pain M54.2 [place] [id number] [place] [address] 07210- 4350 Dec, 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 and Chronic obstructive pulmonary disease, unspecified COPD type J44.9 [place] [id number] [place] [address] 31247- 1397 Dec, [facility], [place] [id number] [place] [address] 51615- 8348 Dec, Hypothyroidism, unspecified hypothyroidism type E03.9 [facility], [place] [address] [address]- 9733 Oct, Essential hypertension I10 [place] [address] 34635- 5648 Oct, [facility], [place] [address] 6[address]70- 3015 Sep, [place] [address] 27020- 9770 Sep, 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 [place] [address] 15400- 3383 Aug, Drug induced constipation K59.03 [place] [address] 32237- 3614 Aug, [place] [address] 45676- 8008 Jul, Other chronic pain G89.29 [place] [address] 44505- 7686 Jul, [place] [address] 26766- 0083 08 Jul, 2017 Well woman exam (no gynecological exam) Z00.00 ; Encounter for immunization Z23 ; Tobacco use Z72.0 and 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 [place] [address] 09941- 6903 Jul, [place] [address] 60045- 7003 Jul, Drug induced constipation K59.03 [place] [address] 04385- 2681 Jun, Chronic obstructive pulmonary disease, unspecified COPD type J44.9 ; Tobacco use Z72.0 ; Hypothyroidism, unspecified hypothyroidism type E03.9 ; Other chronic pain G89.29 ; Drug induced constipation K59.03 and COPD exacerbation J44.1 [facility], [place] [address] [place] [address] 12876- 0856 Jun, [facility], [place] [id number] [place] [address] 27885- 1600 Jun, [facility], [place] [id number] [place] [address] 73216- 8456 Jun, Osteoporosis M81.0 [facility], [place] [id number] [place] [address] 40511- 7495 Jun, [facility], [place] [id number] [place] [address] 03531- 4176 Jun, Other chronic pain G89.29 [facility], [place] [id number] [place] [address] 30251- 2043 Jun, Other chronic pain G89.29 [facility], [place] [id number] [place] [address] 80012- 7570 Jun, Hypothyroidism, unspecified hypothyroidism type E03.9 [facility], [place] [id number] [place] [address] 11432- 1196 Jun, [facility], [place] [id number] [place] [address] 50741- 7196 May, [facility], [place] [id number] [place] [address] 47657- 4426 May, COPD exacerbation J44.1 ; Pain of left lower extremity M79.605 ; Burn T30.0 ; Fatigue, unspecified type R53.83 ; Anemia, unspecified type D64.9 ; Adverse effect of other opioids, initial encounter T40.2X5A and Drug induced constipation K59.03 [facility], [place] [id number] [place] [address] 56525- 4848 May, [facility], [place] [address] [address]- 4778 May, Burn T30.0 [facility], [place] [address] [place] [address] 04779- 9227 18 May, 2017 Other chronic pain G89.29 and Burn T30.0 [facility], [place] [id number] [place] [address] 23102- 0936 May, Other chronic pain G89.29 [facility], [place] [id number] [place] [address] 57907- 0597 Apr, [facility], [place] [id number] [place] [address] 84355- 0882 Apr, [facility], [place] [id number] [place] [address] 50524- 1367 Apr, [facility], [place] [id number] [place] [address] 09750- 1421 Apr, [facility], [place] [id number] [place] [address] 31893- 3057 Apr, Other chronic pain G89.29 [facility], [place] [id number] [place] [address] 30608- 9592 Apr, Fatigue, unspecified type R53.83 ; Hypothyroidism, unspecified hypothyroidism type E03.9 ; Other chronic pain G89.29 ; Essential hypertension I10 ; Persistent atrial fibrillation I48.1 ; Chronic obstructive pulmonary disease, unspecified COPD type J44.9 ; Nocturnal hypoxia G47.34 ; Irritable bowel syndrome without diarrhea K58.9 ; Hyponatremia E87.1 ; Osteoporosis M81.0 and Primary insomnia F51.01 [facility], [place] [address] [place] [address] 29122- 7138 Feb, [facility], [place] [address] [place] [address] 73479- 8503 January, [facility], [place] [address] [address]58- 8665 13 Oct, 2016 Essential hypertension I10 [address] 43243- 8450 Sep, Shortness of breath R06.02 ; COPD with exacerbation J44.1 and Weakness R53.[address] 32609- 6615 Sep, Drug-induced constipation K59.03 and Allergic rhinitis, unspecified allergic rhinitis trigger, unspecified rhinitis seasonality J30.9 [place] [address] 95221- 6247 Sep, [place] [address] 03929- 3801 Sep, [place] [address] 07045- 5148 Sep, [place] [address] 01014- 3680 Jul, [address] 21243- 5514 Jul, Other chronic pain G89.29 ; Hematuria R31.9 ; Screening for breast cancer Z12.39 ; Anxiety F41.9 ; Primary insomnia F51.01 ; Drug-induced constipation K59.03 and Encounter for immunization Z23 [address] 59162- 4856 Jul, 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 [place] [address] 47433- 6570 Jun, 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 and Hyponatremia E87.[address] 96621- 8957 Jun, 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 and Hyponatremia E87.1 [place] [address] 10962- 5824 May, Hyponatremia E87.1 [place] [id number] [place] [address] 32530- 4321 May, Essential hypertension I10 ; Tobacco use Z72.0 ; Hyponatremia E87.1 ; Allergic rhinitis, unspecified allergic rhinitis trigger, unspecified rhinitis seasonality J30.9 and Osteoporosis M81.0 [place] [id number] [place] [address] 34262- 1888 Mar, [place] [address] 30086- 9652 Mar, [address] 82507- 1191 Mar, Hyponatremia E87.1 [place] [address] [place] [address] 96713- 9565 Feb, Essential hypertension I10 ; Hypothyroidism, unspecified [...] Concern about skin disease without diagnosis Z71.1 [place] [id number] [place] [address] 45341- 8609 Feb, [place] [address] [place] [address] 74644- 8636 Feb, Other nonspecific abnormal finding of lung field R91.8 [place] [id number] [place] [address] 37932- 6294 Dec, [place] [id number] [place] [address] 15004- 3292 Dec, [place] [address] [place] [address]- 8495 Nov, [facility], [place] [id number] [place] [address] 25333- 2360 Nov, [facility], [place] [id number] [place] [address] 10569- 6089 Oct, [facility], [place] [address] [place] [address] 99395- 4994 Oct, [facility], [place] [id number] [place] [address] 45239- 7876 Oct, [facility], [place] [address] [place] [address] 16777- 5526 Aug, Chronic obstructive pulmonary disease, unspecified COPD type J44.9 [facility], [place] [id number] [place] [address] 29711- 3058 Aug, [facility], [place] [id number] [place] [address] 41052- 2321 Aug, Rectal bleeding K62.5 and GERD (gastroesophageal reflux disease) K21.9 [facility], [place] [id number] [place] [address] 29817- 6157 Jul, [facility], [place] [address] [place] [address] 49909- 5465 Jul, 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 [facility], [place] [address] [place] [address] 37812- 1480 Jun, [facility], [place] [address] [place] [address] 92238- 9216 Jun, [facility], [place] [address] [place] [address] 25113- 4603 May, Adrenal mass 255.9 and Abnormal dexamethasone suppression test 794.6 [facility], [place] [address] [place] [address] 99243- 1825 May, Adrenal mass 255.9 [facility], [place] [address] [place]6065100[place] [address]- 0442 21 May, 2015 [facility], [place] [address] [place] [address] 75499- 5461 18 May, 2015 Pneumonia 486 and COPD (chronic obstructive pulmonary disease) 496 [facility], [place] [address] [address]- 0023 17 May, 2015 [facility], [place] [id number] [place] [address] 85718- 8750 14 May, 2015 [facility], [place] [address] [place] [address] 93331- 0639 11 May, 2015 [facility], [place] [id number] [place] [address] 24237- 4142 10 May, 2015 [facility], [place] [id number] [place] [address] 08888- 0541 09 May, 2015 [facility], [place] [address] [place] [address] 39548- 8447 08 May, 2015 [facility], [place] [address] [place] [address] 82120- 5664 04 May, 2015 Adrenal mass 255.9 [facility], [place] [address] [place] [address] 98893- 8225 Apr, Adrenal mass 255.9 ; Hypothyroidism 244.9 ; Chronic sore throat 472.1 ; Atrial fibrillation 427.31 ; Hypertension 401.9 ; Generalized anxiety disorder 300.02 ; Chronic pain 338.29 and COPD (chronic obstructive pulmonary disease) 496 [facility], [place] [address] [address]- 0225 Apr, [facility], [place] [id number] [place] [address] 89538- 9788 Apr, [facility], [place] [address] [address]- 2935 Mar, [facility], [place] [id number] [place] [address] 55734- 3432 Mar, Adrenal mass 255.9 [facility], [place] [address] [address]- 6876 Mar, [facility], [place] [address] [address]- 9414 Mar, Chronic sore throat 472.1 and Adrenal mass 255.9 [facility], [place] [address] [address]- 9090 Mar, [facility], [place] [address] [address]- 1242 Feb, [facility], [place] [address] [place] [address] 17047- 1562 Feb, [facility], [place] [address] [id number] [address]- 6725 Feb, [facility], [place] [address] [place] [address] 45896- 1048 Feb, [facility], [place] [address] [address]- 1443 Feb, [facility], [place] [address] [address]- 9387 Feb, [facility], [place] [address] [address]- 3328 Feb, [facility], [place] [address] [address]- 0361 Feb, [facility], [place] [address] [address]- 0970 Feb, [facility], [place] [address] [address]- 8390 January, Adrenal mass 255.9 ; Hypothyroidism 244.9 ; Chronic sore throat 472.1 ; Atrial fibrillation 427.31 ; Hypertension 401.9 ; Generalized anxiety disorder 300.02 ; Chronic pain 338.29 and COPD (chronic obstructive pulmonary disease) 496 [facility], [place] [address] [id number] [place] [address]- 1901 January, [facility] [address] [id number] [place] [address]- 8729 January, [facility] [place] [facility] [address] [facility] [id number] [place] [address]- 2795 January, Sinusitis 473.9 [facility] [place] [facility] [address] [id number] [place] [address]- 2817 January, [facility] [place] [facility] [address] [id number] [place] [address]- 9892 January, [facility] [place] [facility] [address] [id number] [place] [address]- 9803 Dec, [facility] [place] [facility] [address] [facility] [id number] [place] [address]- 4983 Dec, [facility] [address] [id number] [place] [address]- 6487 Nov, [facility] [place] [facility] [address] [id number] [place] [address]- 2301 Nov, [facility] [place] [facility] [address] [facility] [id number] [place] [address]- 8983 Nov, [facility] [place] [facility] [address] [facility] [id number] [place] [address]- 6497 Nov, [facility] [place] [facility] [address] [id number] [place] [address]- 3787 Oct, [facility] [place] [facility] [address] [id number] [place] [address]- 6487 Oct, [facility] [place] [facility] [address] [id number] [place] [address]- 1767 Oct, [facility] [place] [facility] [address] [facility] [id number] [place] [address]- 9124 Oct, [facility] [place] [facility] [address] [facility] [id number] [place] [address]- 9058 Oct, 2014 [facility] [place] [facility] [address] [facility] [id number] [place] [address]- 4159 Oct, 2014 [facility] [place] [facility] [address] [facility] [id number] [place] [address]- 7506 Oct, 2014 [facility] [place] [facility] [address] [facility] [id number] [place] [address] Oct, 2014 [facility] [place] [facility] [address] [facility] [id number] [place] [address] Oct, 2014 [facility] [place] [facility] [address] [facility] [id number] [place] [address] Oct, 2014 [facility] [place] [facility] [address] [id number] [place] [address] Oct, 2014 [facility] [place] [facility] [address] [id number] [place] [address] Oct, 2014 [facility] [place] [facility] [address] [facility] [id number] [place] [address] Oct, 2014 [facility] [place] [facility] [address] [id number] [place] [address] Oct, 2014 [facility] [place] [facility] [address] [id number] [place] [address] Oct, 2014 [facility] [place] [facility] [address] [facility] [id number] [place] [address] Oct, 2014 [facility] [place] [facility] [address] [facility] [id number] [place] [address] Oct, 2014 [facility] [place] [facility] [address] [facility] [id number] [place] [address] Oct, 2014 [facility] [place] [facility] [address] [facility] [id number] [place] [address] Sep, [facility] [place] [facility] [address] [facility] [id number] [place] [address] Sep, [facility] [place] [address] [facility] [id number] [place] [address] 16 May, 2009 IMMUNIZATIONS No Known Immunizations SOCIAL HISTORY Never Assessed REASON FOR VISIT Xray orders PLAN OF CARE VITAL SIGNS MEDICATIONS Unknown [...]
--- OUTSIDE RECORDS SUMMARY | 2018-06-29 09:05 | XMS REPORT ---
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 Name Role Phone OBINNA PRASAD Unavailable PROBLEMS Type Condition ICD9-CM Code BDT79-SQ Code Onset Dates Condition Status SNOMED Code Problem Other chronic pain G89.29 Active 96205825 Problem Rectal bleeding K62.5 Active 27209079 Problem 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 Active 7562189365586219 Problem Chronic pain syndrome G89.4 Active 518931491 Problem Anxiety F41.9 Active 94926874 Problem T12 compression fracture S22.080A Active 134848258 Problem Allergic rhinitis, unspecified allergic rhinitis trigger, unspecified rhinitis seasonality J30.9 Active 86434373 Problem Osteoporosis M81.0 Active 53969127 Problem Drug induced constipation K59.03 Active 991728811894335 Problem Primary insomnia F51.01 Active 2707150 Problem Other nonspecific abnormal finding of lung field R91.8 Resolved 714099662 Problem Irritable bowel syndrome without diarrhea K58.9 Active 49361104 Problem 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 Active 969006050 Problem Tobacco use Z72.0 Active 499447309 Problem Chronic obstructive pulmonary disease, unspecified COPD type J44.9 Active 71515769 Problem Nocturnal hypoxia G47.34 Active 788686821 Problem Persistent atrial fibrillation I48.1 Active 373056342 Problem Essential hypertension I10 Active 00877902 Problem Hypothyroidism, unspecified hypothyroidism type E03.9 Active 83031545 Problem 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 Active 84319434 ALLERGIES No Information ENCOUNTERS Encounter Location Date Diagnosis [facility] [address] [facility] [id number], [place] [address] Apr, [facility] [address] [id number], [place] [address] 9[address] Apr, [facility] [address] [facility] [id number], [place] [address] 290[address] Mar, [facility] [address] [facility] [id number], [place] [address] 6617 Mar, [facility] [address] [facility] [id number], [place] [address]853 Mar, Hypothyroidism, unspecified hypothyroidism type E03.9 [facility] [address] [facility] [id number], [place] [address] 0[address] Mar, [facility] [address] [facility] [id number] [place] [address] 36848- 6520 Mar, Chronic pain syndrome G89.4 [facility] [id number] [place] [address] Mar, [facility] [address] [place] [address] 17789- 8276 Mar, Chronic pain syndrome G89.4 [facility] [address] [facility] [id number], [place] [address] Mar, [facility] [address]65[address], [place] [address] 8642 Mar, Chronic pain syndrome G89.4 and Other chronic pain G89.29 [facility] [address] [facility] [id number], [place] [address] Feb, Chronic obstructive pulmonary disease, unspecified COPD type J44.9 [facility] [address] [facility] [id number], [place] [address] 9175 Feb, [facility] [address] [facility] [id number], [place] [address] 1550 Feb, [facility] [address] [facility] [id number], [place] [address] 4926 Feb, [facility] [address]00565[address], [place] [address]- 7463 Feb, [place] [address] [place] [address] 60995- 8452 Feb, [place] [id number] [place] [address] 88506- 7762 Feb, Other chronic pain G89.29 ; Rectal bleeding K62.5 and Chronic pain syndrome G89.4 [place] [id number] [place] [address] 39012- 6355 15 Feb, 2018 [place] [id number] [place] [address] 70743- 1946 14 Feb, 2018 [place] [id number] [place] [address] 30321- 8854 Feb, Other chronic pain G89.29 ; Essential hypertension I10 ; Osteoporosis M81.0 ; Drug induced constipation K59.03 ; Chronic obstructive pulmonary disease, unspecified COPD type J44.9 ; Hypothyroidism, unspecified hypothyroidism type E03.9 ; 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 ; Right ear pain H92.01 and Sore throat J02.9 [place] [id number] [place] [address] 13447- 2782 January, [place] [id number] [place] [address] 85938- 8604 January, Low back pain M54.5 ; Other chronic pain G89.29 ; Pain in thoracic spine M54.6 and Neck pain M54.2 [place] [id number] [place] [address] 58372- 1851 Dec, Low back pain M54.5 ; Other chronic pain G89.29 ; Pain in thoracic spine M54.6 and Neck pain M54.2 [place] [id number] [place] [address] 90316- 6051 Dec, 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 and Chronic obstructive pulmonary disease, unspecified COPD type J44.9 [place] [id number] [place] [address] 96358- 1672 Dec, [facility] [id number] [place] [address] 67071- 4599 Dec, Hypothyroidism, unspecified hypothyroidism type E03.9 [facility] [address] [address]90- 0519 Oct, Essential hypertension I10 [place] [address] 79432- 2016 Oct, [facility] [address] 94655- 6730 Sep, [place] [address] 88174- 8041 Sep, 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 [place] [address] 63657- 1818 Aug, Drug induced constipation K59.03 [place] [address] 86082- 7326 Aug, [place] [address] 55838- 8157 Jul, Other chronic pain G89.29 [place] [address] 85054- 7176 Jul, [place] [address] 07910- 5704 08 Jul, 2017 Encounter for immunization Z23 ; Well woman exam (no gynecological exam) Z00.00 ; Tobacco use Z72.0 and 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 [place] [address] 49990- 0717 Jul, [place] [address] 48693- 0718 Jul, Drug induced constipation K59.03 [place] [address] 95059- 5758 Jun, Chronic obstructive pulmonary disease, unspecified COPD type J44.9 ; Tobacco use Z72.0 ; Hypothyroidism, unspecified hypothyroidism type E03.9 ; Other chronic pain G89.29 ; Drug induced constipation K59.03 and COPD exacerbation J44.1 [facility] [address] [place] [address] 21083- 6782 Jun, [facility] [id number] [place] [address] 05629- 5022 Jun, [facility] [id number] [place] [address] 54177- 8605 Jun, Osteoporosis M81.0 [facility] [id number] [place] [address] 10902- 9268 Jun, [facility] [id number] [place] [address] 45449- 1091 Jun, Other chronic pain G89.29 [facility] [id number] [place] [address] 18159- 3471 Jun, Other chronic pain G89.29 [facility] [id number] [place] [address] 61260- 5907 Jun, Hypothyroidism, unspecified hypothyroidism type E03.9 [facility] [id number] [place] [address] 85590- 3501 Jun, [facility] [id number] [place] [address] 61887- 9132 May, [facility] [id number] [place] [address] 60660- 4183 May, COPD exacerbation J44.1 ; Pain of left lower extremity M79.605 ; Burn T30.0 ; Fatigue, unspecified type R53.83 ; Anemia, unspecified type D64.9 ; Adverse effect of other opioids, initial encounter T40.2X5A and Drug induced constipation K59.03 [facility] [id number] [place] [address] 32627- 4200 May, [facility] [address], [place] [address]- 0004 May, Burn T30.0 [facility] [address] [place] [address] 43819- 7243 18 May, 2017 Other chronic pain G89.29 and Burn T30.0 [facility] [id number] [place] [address] 17230- 7241 May, Other chronic pain G89.29 [facility] [id number] [place] [address] 73564- 2697 Apr, [facility] [id number] [place] [address] 19418- 1558 Apr, [facility] [id number] [place] [address] 70517- 5616 Apr, [facility] [id number] [place] [address] 79120- 9291 Apr, [facility] [id number] [place] [address] 74927- 0276 Apr, Other chronic pain G89.29 [facility] [address] [place] [address] 68195- 2934 Apr, Fatigue, unspecified type R53.83 ; Hypothyroidism, unspecified hypothyroidism type E03.9 ; Other chronic pain G89.29 ; Essential hypertension I10 ; Persistent atrial fibrillation I48.1 ; Chronic obstructive pulmonary disease, unspecified COPD type J44.9 ; Nocturnal hypoxia G47.34 ; Irritable bowel syndrome without diarrhea K58.9 ; Hyponatremia E87.1 ; Osteoporosis M81.0 and Primary insomnia F51.01 [facility] [address] [place] [address] 10077- 7098 Feb, [facility] [address] [place] [address] 60928- 9232 January, [facility] [address] 44352- 9836 13 Oct, 2016 Essential hypertension I10 [address] 46494- 3244 Sep, Shortness of breath R06.02 ; COPD with exacerbation J44.1 and Weakness R53.[address] 14083- 1512 Sep, Drug-induced constipation K59.03 and Allergic rhinitis, unspecified allergic rhinitis trigger, unspecified rhinitis seasonality J30.9 [place] [address] 11467- 0972 Sep, [place] [address] 93482- 3209 Sep, [place] [address] 58707- 3585 Sep, [place] [address] 83361- 1952 Jul, [address] 53812- 4966 Jul, Other chronic pain G89.29 ; Hematuria R31.9 ; Screening for breast cancer Z12.39 ; Anxiety F41.9 ; Primary insomnia F51.01 ; Drug-induced constipation K59.03 and Encounter for immunization Z23 [address] 40603- 1866 Jul, 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 [place] [address] 37427- 2398 Jun, 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 and Hyponatremia E87.[address] 81721- 1420 Jun, 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 and Hyponatremia E87.1 [place] [address] 56250- 2653 May, Hyponatremia E87.1 [place] [address] [place] [address] 78663- 0128 May, Essential hypertension I10 ; Tobacco use Z72.0 ; Hyponatremia E87.1 ; Allergic rhinitis, unspecified allergic rhinitis trigger, unspecified rhinitis seasonality J30.9 and Osteoporosis M81.0 [place] [address] [place] [address] 84491- 2434 Mar, [place] [address] 93645- 5316 Mar, [address] 52846- 6574 Mar, Hyponatremia E87.1 [place] [address] [place] [address] 88205- 7710 Feb, Essential hypertension I10 ; Hypothyroidism, unspecified [...] Concern about skin disease without diagnosis Z71.1 [place] [address] [place] [address] 95588- 1949 Feb, [place] [address] [place] [address] 54622- 3878 Feb, Other nonspecific abnormal finding of lung field R91.8 [address] [address] [place] [address] 40988- 8604 Dec, [place] [address] [place] [address] 97916- 3463 Dec, [place] [address] [place] [address]- 8338 Nov, [facility] [address] [place] [address] 11535- 5041 Nov, [facility] [address] [place] [address] 73677- 8725 Oct, [facility] [address] [place] [address] 31822- 5816 Oct, [facility] [id number] [place] [address] 53410- 9479 Oct, [facility] [address] [place] [address] 95535- 0318 Aug, Chronic obstructive pulmonary disease, unspecified COPD type J44.9 [facility] [address] [place] [address] 94392- 3918 Aug, [facility] [address] [place] [address] 85517- 4275 Aug, Rectal bleeding K62.5 and GERD (gastroesophageal reflux disease) K21.9 [facility] [address] [place] [address] 04548- 7153 Jul, [facility] [id number] [place] [address] 34213- 3571 Jul, 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 [facility] [address] [place] [address] 24851- 3202 Jun, [facility] [id number] [place] [address] 45770- 8148 Jun, [facility] [address] [place] [address] 37582- 1466 May, Adrenal mass 255.9 and Abnormal dexamethasone suppression test 794.6 [facility] [address] [place] [address] 52376- 7637 May, Adrenal mass 255.9 [facility] [address] [id number], [place] [address]- 0305 21 May, 2015 [facility] [address] [place] [address] 17442- 7235 18 May, 2015 Pneumonia 486 and COPD (chronic obstructive pulmonary disease) 496 [facility] [address], [place] [address]- 1704 17 May, 2015 [facility] [address] [place] [address] 72093- 2275 14 May, 2015 [facility] [address] [place] [address] 98422- 2140 11 May, 2015 [facility] [address] [place] [address] 78604- 3515 10 May, 2015 [facility] [address] [place] [address] 14490- 0715 09 May, 2015 [facility] [address] [place] [address] 79204- 9909 08 May, 2015 [facility] [address] [place] [address] 59438- 6949 04 May, 2015 Adrenal mass 255.9 [facility] [address] [place] [address] 17837- 6494 Apr, Adrenal mass 255.9 ; Hypothyroidism 244.9 ; Chronic sore throat 472.1 ; Atrial fibrillation 427.31 ; Hypertension 401.9 ; Generalized anxiety disorder 300.02 ; Chronic pain 338.29 and COPD (chronic obstructive pulmonary disease) 496 [facility] [address], [place] [address]- 0063 Apr, [facility] [id number] [place] [address] 72974- 3225 Apr, [facility] [address], [place] [address]- 2630 Mar, [facility] [id number] [place] [address] 05180- 8546 Mar, Adrenal mass 255.9 [facility] [address], [place] [address]- 9636 Mar, [facility] [address], [place] [address]- 4277 Mar, Chronic sore throat 472.1 and Adrenal mass 255.9 [facility] [address], [place] [address]- 6265 Mar, [facility] [address], [place] [address]- 7315 Feb, [facility] [address] [place] [address] 51713- 7679 Feb, [facility] [id number], [place] [address]- 9439 Feb, [facility] [address] [place] [address] 40821- 3728 Feb, [facility] [address], [place] [address]- 2572 Feb, [facility] [address], [place] [address]- 8115 Feb, [facility] [address], [place] [address]- 4355 Feb, [facility] [address], [place] [address]- 8269 Feb, [facility] [address], [place] [address]- 4264 Feb, [facility] [address], [place] [address]- 4433 January, Adrenal mass 255.9 ; Hypothyroidism 244.9 ; Chronic sore throat 472.1 ; Atrial fibrillation 427.31 ; Hypertension 401.9 ; Generalized anxiety disorder 300.02 ; Chronic pain 338.29 and COPD (chronic obstructive pulmonary disease) 496 [facility] [address] [id number] [place] [address]- 7552 January, [facility] [address] [id number] [place] [address]- 3578 January, [facility] [place] [facility] [address] [facility] [id number] [place] [address]- 9794 January, Sinusitis 473.9 [facility] [place] [facility] [address] [id number] [place] [address]- 7601 January, [facility] [place] [facility] [address] [id number] [place] [address]- 0635 January, [facility] [place] [facility] [address] [id number] [place] [address]- 7558 Dec, [facility] [place] [facility] [address] [facility] [id number] [place] [address]- 4829 Dec, [facility] [address] [id number] [place] [address]- 8921 Nov, [facility] [place] [facility] [address] [id number] [place] [address]- 0767 Nov, [facility] [place] [facility] [address] [facility] [id number] [place] [address]- 3747 Nov, [facility] [place] [facility] [address] [facility] [id number] [place] [address]- 5562 Nov, [facility] [place] [facility] [address] [id number], [place] [address]- 6498 Oct, [facility] [place] [facility] [address] [id number] [place] [address]- 8165 Oct, [facility] [place] [facility] [address] [id number] [place] [address]- 9065 Oct, [facility] [place] [facility] [address] [facility] [id number] [place] [address]- 6598 Oct, [facility] [place] [facility] [address] [facility] [id number] [place] [address]- 7057 Oct, 2014 [facility] [place] [facility] [address] [facility] [id number] [place] [address]- 2321 Oct, 2014 [facility] [place] [facility] [address] [facility] [id number] [place] [address]- 3996 Oct, 2014 [facility] [place] [facility] [address] [facility] [id number] [place] [address]- 2917 Oct, 2014 [facility] [place] [facility] [address] [facility] [id number] [place] [address]- 9990 Oct, 2014 [facility] [place] [facility] [address] [facility] [id number] [place] [address]- 6883 Oct, 2014 [facility] [place] [facility] [id number] [place] [address]- 7918 Oct, 2014 [facility] [place] [facility] [id number] [place] [address]- 5258 Oct, 2014 [facility] [place] [facility] [address] [facility] [id number] [place] [address]- 0981 Oct, 2014 [facility] [place] [facility] [id number] [place] [address]- 1645 Oct, 2014 [facility] [place] [facility] [id number] [place] [address]- 9014 Oct, 2014 [facility] [place] [facility] [address] [facility] [id number], [place] [address]- 9909 Oct, 2014 [facility] [place] [facility] [address] [facility] [id number] [place] [address]- 7151 Oct, 2014 [facility] [place] [facility] [address] [facility] [id number] [place] [address]- 2499 Oct, 2014 [facility] [place] [facility] [address] [facility] [id number] [place] [address]- 2593 Sep, [facility] [place] [facility] [address] [facility] [id number], [place] [address]- 2546 Sep, [facility] [address] [facility] [id number] [place] [address]- 8606 May, IMMUNIZATIONS No Known Immunizations SOCIAL HISTORY Never Assessed REASON FOR VISIT Requesting Referral PLAN OF CARE VITAL SIGNS MEDICATIONS Medication Instructions Dosage Frequency Start Date End Date Duration Status Omeprazole 20 mg Orally Once a day 1 capsule 24h May, 30 days Active Ventolin HFA 108 (90 Base) MCG/ACT Inhalation every 4 hrs 2 puffs as needed 4h Active RESULTS No Results PROCEDURES No Known [...]
--- OUTSIDE RECORDS SUMMARY | 2018-06-29 09:06 | XMS REPORT ---
Author Author SHANICE OBINNA [facility] Address [address] [place] [address] Care Team Providers Care Youth Care Worker Name Role Phone OBINNA PRASAD Unavailable PROBLEMS Type Condition ICD9-CM Code PTR49-DM Code Onset Dates Condition Status SNOMED Code Problem Other chronic pain G89.29 Active 42365105 Problem Rectal bleeding K62.5 Active 89533172 Problem 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 Active 7294081028586137 Problem Chronic pain syndrome G89.4 Active 977784495 Problem Anxiety F41.9 Active 58065803 Problem T12 compression fracture S22.080A Active 282319398 Problem Allergic rhinitis, unspecified allergic rhinitis trigger, unspecified rhinitis seasonality J30.9 Active 53204125 Problem Osteoporosis M81.0 Active 64374540 Problem Drug induced constipation K59.03 Active 186978137058597 Problem Primary insomnia F51.01 Active 0170483 Problem Other nonspecific abnormal finding of lung field R91.8 Resolved 150797466 Problem Irritable bowel syndrome without diarrhea K58.9 Active 98010295 Problem 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 Active 749352043 Problem Tobacco use Z72.0 Active 332357521 Problem Chronic obstructive pulmonary disease, unspecified COPD type J44.9 Active 36855181 Problem Nocturnal hypoxia G47.34 Active 077533658 Problem Persistent atrial fibrillation I48.1 Active 419795355 Problem Essential hypertension I10 Active 44874626 Problem Hypothyroidism, unspecified hypothyroidism type E03.9 Active 27856907 Problem 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 Active 93481465 ALLERGIES No Information ENCOUNTERS Encounter Location Date Diagnosis [facility] [address] [facility] [id number] [address] Apr, [facility] [address] [id number] [address] 4572 Apr, [facility] [address] [facility] [id number] [address] 1369 Mar, [facility] [address] [facility] [id number], [place] [address] 2972 Mar, [facility] [address] [facility] [id number], [place] [address] 3515 Mar, Hypothyroidism, unspecified hypothyroidism type E03.9 [facility] [address] [facility] [id number] [address] 8777 Mar, [facility] [address] [facility] [id number] [place] [address] 75508- 2109 Mar, Chronic pain syndrome G89.4 [facility] [id number] [place] [address] 86[address] Mar, [facility] [id number] [place] [address] 14800- 3982 Mar, Chronic pain syndrome G89.4 [facility] [address] [facility] [id number] [address] 9000 Mar, [facility] [address]100[place] [address] 4436 Mar, Chronic pain syndrome G89.4 and Other chronic pain G89.29 [facility] [address] [facility] [id number] [address] 5975 Feb, Chronic obstructive pulmonary disease, unspecified COPD type J44.9 [facility] [address] [facility] [id number], [place] [address] 1639 Feb, [facility] [address] [facility] [id number] [address]- 5475 Feb, [facility] [address] [facility] [id number], [place] [address]- 6625 Feb, [facility] [address]00565100[place] [address] 8778 Feb, [place] [id number] [place] [address] 64427- 6641 Feb, [place] [id number] [place] [address] 45237- 6961 Feb, Other chronic pain G89.29 ; Rectal bleeding K62.5 and Chronic pain syndrome G89.4 [place] [id number] [place] [address] 71910- 3061 15 Feb, 2018 [place] [id number] [place] [address] 72911- 9479 14 Feb, 2018 [place] [id number] [place] [address] 29728- 5765 Feb, Other chronic pain G89.29 ; Essential hypertension I10 ; Osteoporosis M81.0 ; Drug induced constipation K59.03 ; Chronic obstructive pulmonary disease, unspecified COPD type J44.9 ; Hypothyroidism, unspecified hypothyroidism type E03.9 ; 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 ; Right ear pain H92.01 and Sore throat J02.9 [place] [id number] [place] [address] 16040- 5114 January, [place] [id number] [place] [address] 58885- 9416 January, Low back pain M54.5 ; Other chronic pain G89.29 ; Pain in thoracic spine M54.6 and Neck pain M54.2 [place] [id number] [place] [address] 85798- 3274 Dec, Low back pain M54.5 ; Other chronic pain G89.29 ; Pain in thoracic spine M54.6 and Neck pain M54.2 [place] [id number] [place] [address] 87304- 9643 Dec, 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 and Chronic obstructive pulmonary disease, unspecified COPD type J44.9 [place] [id number] [place] [address] 25487- 7410 Dec, [facility] [id number] [place] [address] 47057- 0723 Dec, Hypothyroidism, unspecified hypothyroidism type E03.9 [facility] [address] [address]01- 8624 Oct, Essential hypertension I10 [place] [address] 24969- 9944 Oct, [facility] [address] 52743- 9189 Sep, [place] [address] 03617- 8655 Sep, 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 [place] [address] 89113- 5875 Aug, Drug induced constipation K59.03 [place] [address] 44571- 9860 Aug, [place] [address] 51732- 6853 Jul, Other chronic pain G89.29 [place] [address] 55572- 0092 Jul, [place] [address] 67598- 6179 08 Jul, 2017 Well woman exam (no gynecological exam) Z00.00 ; Encounter for immunization Z23 ; Tobacco use Z72.0 and 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 [place] [address] 02565- 9354 Jul, [place] [address] 64601- 1020 Jul, Drug induced constipation K59.03 [place] [address] 41138- 1671 Jun, Chronic obstructive pulmonary disease, unspecified COPD type J44.9 ; Tobacco use Z72.0 ; Hypothyroidism, unspecified hypothyroidism type E03.9 ; Other chronic pain G89.29 ; Drug induced constipation K59.03 and COPD exacerbation J44.1 [facility] [id number] [place] [address] 77720- 4047 Jun, [facility] [id number] [place] [address] 47031- 0416 Jun, [facility] [id number] [place] [address] 70842- 9364 Jun, Osteoporosis M81.0 [facility] [id number] [place] [address] 82574- 4208 Jun, [facility] [id number] [place] [address] 34903- 4970 Jun, Other chronic pain G89.29 [facility] [id number] [place] [address] 94258- 3837 Jun, Other chronic pain G89.29 [facility] [id number] [place] [address] 44713- 1749 Jun, Hypothyroidism, unspecified hypothyroidism type E03.9 [facility] [id number] [place] [address] 70899- 1051 Jun, [facility] [id number] [place] [address] 91682- 3546 May, [facility] [id number] [place] [address] 68521- 4575 May, COPD exacerbation J44.1 ; Pain of left lower extremity M79.605 ; Burn T30.0 ; Fatigue, unspecified type R53.83 ; Anemia, unspecified type D64.9 ; Adverse effect of other opioids, initial encounter T40.2X5A and Drug induced constipation K59.03 [facility] [id number] [place] [address] 16131- 5452 May, [facility] [address] [address]- 7808 May, Burn T30.0 [facility] [id number] [place] [address] 98144- 2711 18 May, 2017 Other chronic pain G89.29 and Burn T30.0 [facility] [id number] [place] [address] 57659- 3819 May, Other chronic pain G89.29 [facility] [id number] [place] [address] 34609- 7398 Apr, [facility] [id number] [place] [address] 45489- 2452 Apr, [facility] [id number] [place] [address] 59188- 9724 Apr, [facility] [id number] [place] [address] 51756- 6005 Apr, [facility] [id number] [place] [address] 61230- 3778 Apr, Other chronic pain G89.29 [facility] [id number] [place] [address] 05383- 1686 Apr, Fatigue, unspecified type R53.83 ; Hypothyroidism, unspecified hypothyroidism type E03.9 ; Other chronic pain G89.29 ; Essential hypertension I10 ; Persistent atrial fibrillation I48.1 ; Chronic obstructive pulmonary disease, unspecified COPD type J44.9 ; Nocturnal hypoxia G47.34 ; Irritable bowel syndrome without diarrhea K58.9 ; Hyponatremia E87.1 ; Osteoporosis M81.0 and Primary insomnia F51.01 [facility] [id number] [place] [address] 96426- 8312 Feb, [facility] [id number] [place] [address] 66579- 0565 January, [facility] [address] [place] [address] 22520- 9749 13 Oct, 2016 Essential hypertension I10 [address] 32028- 0556 Sep, Shortness of breath R06.02 ; COPD with exacerbation J44.1 and Weakness R53.[address] 18600- 8738 Sep, Drug-induced constipation K59.03 and Allergic rhinitis, unspecified allergic rhinitis trigger, unspecified rhinitis seasonality J30.9 [place] [address] 78351- 5495 Sep, [place] [address] 40434- 6339 Sep, [place] [address] 01530- 7805 Sep, [place] [address] 53024- 0984 Jul, [address] 57334- 7104 Jul, Other chronic pain G89.29 ; Hematuria R31.9 ; Screening for breast cancer Z12.39 ; Anxiety F41.9 ; Primary insomnia F51.01 ; Drug-induced constipation K59.03 and Encounter for immunization Z23 [address] 40871- 0892 Jul, 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 [place] [address] 90004- 1943 Jun, 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 and Hyponatremia E87.[address] 43920- 1699 Jun, 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 and Hyponatremia E87.1 [place] [address] 50774- 8244 May, Hyponatremia E87.1 [place] [id number] [place] [address] 63740- 2034 May, Essential hypertension I10 ; Tobacco use Z72.0 ; Hyponatremia E87.1 ; Allergic rhinitis, unspecified allergic rhinitis trigger, unspecified rhinitis seasonality J30.9 and Osteoporosis M81.0 [place] [id number] [place] [address] 94718- 0296 Mar, [place] [address] 73361- 2898 Mar, [address] 96487- 3400 Mar, Hyponatremia E87.1 [place] [id number] [place] [address] 12076- 3976 Feb, Essential hypertension I10 ; Hypothyroidism, unspecified [...] Concern about skin disease without diagnosis Z71.1 [place] [id number] [place] [address] 88926- 3619 Feb, [place] [id number] [place] [address] 31388- 9010 Feb, Other nonspecific abnormal finding of lung field R91.8 [place] [id number] [place] [address] 11311- 0860 Dec, [place] [id number] [place] [address] 91832- 3384 Dec, [place] [address] [place] [address]- 5769 Nov, [facility] [id number] [place] [address] 63559- 5235 Nov, [facility] [id number] [place] [address] 08199- 1087 Oct, [facility] [id number] [place] [address] 82540- 7900 Oct, [facility] [id number] [place] [address] 36397- 9746 Oct, [facility] [id number] [place] [address] 83859- 8417 Aug, Chronic obstructive pulmonary disease, unspecified COPD type J44.9 [facility] [id number] [place] [address] 83741- 8465 Aug, [facility] [id number] [place] [address] 90333- 2287 Aug, Rectal bleeding K62.5 and GERD (gastroesophageal reflux disease) K21.9 [facility] [id number] [place] [address] 67847- 0294 Jul, [facility] [id number] [place] [address] 06777- 7210 Jul, 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 [facility] [id number] [place] [address] 84077- 7134 Jun, [facility] [id number] [place] [address] 79501- 9278 Jun, [facility] [id number] [place] [address] 38066- 3171 May, Adrenal mass 255.9 and Abnormal dexamethasone suppression test 794.6 [facility] [id number] [place] [address] 19464- 1532 May, Adrenal mass 255.9 [facility] [address] [id number] [address]- 8035 21 May, 2015 [facility] [address] [place] [address] 28115- 9198 18 May, 2015 Pneumonia 486 and COPD (chronic obstructive pulmonary disease) 496 [facility] [address] [address]- 2892 17 May, 2015 [facility] [id number] [place] [address] 52303- 6330 14 May, 2015 [facility] [address] [place] [address] 07841- 6339 11 May, 2015 [facility] [id number] [place] [address] 17630- 6835 10 May, 2015 [facility] [id number] [place] [address] 22928- 0666 09 May, 2015 [facility] [id number] [place] [address] 03596- 4910 08 May, 2015 [facility] [address] [place] [address] 90624- 4201 04 May, 2015 Adrenal mass 255.9 [facility] [address] [place] [address] 32585- 0329 Apr, Adrenal mass 255.9 ; Hypothyroidism 244.9 ; Chronic sore throat 472.1 ; Atrial fibrillation 427.31 ; Hypertension 401.9 ; Generalized anxiety disorder 300.02 ; Chronic pain 338.29 and COPD (chronic obstructive pulmonary disease) 496 [facility] [address] [address]- 1702 Apr, [facility] [id number] [place] [address] 14194- 6425 Apr, [facility] [address] [address]- 5625 Mar, [facility] [id number] [place] [address] 36057- 9346 Mar, Adrenal mass 255.9 [facility] [address] [address]- 4358 Mar, [facility] [address] [address]- 9096 Mar, Chronic sore throat 472.1 and Adrenal mass 255.9 [facility] [address] [address]- 6726 Mar, [facility] [address] [address]- 8506 Feb, [facility] [id number] [place] [address] 02518- 7361 Feb, [facility] [id number] [address]- 6900 Feb, [facility] [id number] [place] [address] 32799- 5166 Feb, [facility] [address] [address]- 1364 Feb, [facility] [address] [address]- 2836 Feb, [facility] [address] [address]- 8236 Feb, [facility] [address] [address]- 3224 Feb, [facility] [address] [address]- 5718 Feb, [facility] [address] [address]- 4608 January, Adrenal mass 255.9 ; Hypothyroidism 244.9 ; Chronic sore throat 472.1 ; Atrial fibrillation 427.31 ; Hypertension 401.9 ; Generalized anxiety disorder 300.02 ; Chronic pain 338.29 and COPD (chronic obstructive pulmonary disease) 496 [facility] [address] [id number] [place] [address]- 2066 January, [facility] [address] [id number] [place] [address]- 0491 January, [facility] [place] [facility] [address] [facility] [id number] [place] [address]- 2131 January, Sinusitis 473.9 [facility] [place] [facility] [address] [id number] [place] [address]- 2438 January, [facility] [place] [facility] [address] [id number] [place] [address]- 4111 January, [facility] [place] [facility] [address] [id number] [place] [address]- 7924 Dec, [facility] [place] [facility] [address] [facility] [id number] [place] [address]- 4235 Dec, [facility] [address] [id number] [place] [address]- 8278 Nov, [facility] [place] [facility] [address] [id number] [place] [address]- 7248 Nov, [facility] [place] [place] [facility] [address] [facility] [id number] [place] [address]- 9883 Nov, [facility] [place] [facility] [address] [facility] [id number] [place] [address]- 1860 Nov, [facility] [place] [place] [facility] [address] [id number] [address]- 4754 Oct, [facility] [place] [facility] [address] [id number] [place] [address]- 5584 Oct, [facility] [place] [facility] [address] [id number] [place] [address]- 3602 Oct, [facility] [place] [facility] [address] [facility] [id number] [place] [address]- 1001 Oct, [facility] [place] [facility] [address] [facility] [id number] [place] [address]- 4429 Oct, 2014 [facility] [place] [facility] [address] [facility] [id number] [place] [address]- 8184 Oct, 2014 [facility] [place] [facility] [address] [facility] [id number] [place] [address]- 6126 Oct, 2014 [facility] [place] [facility] [address] [facility] [id number] [place] [address]- 5416 Oct, 2014 [facility] [place] [facility] [address] [facility] [id number] [place] [address]- 3789 Oct, 2014 [facility] [place] [facility] [address] [facility] [id number] [place] [address]- 1580 Oct, 2014 [facility] [place] [facility] [id number] [place] [address]- 5118 Oct, 2014 [facility] [place] [facility] [id number] [place] [address]- 0376 Oct, 2014 [facility] [place] [facility] [address] [facility] [id number] [place] [address]- 2028 Oct, 2014 [facility] [place] [facility] [address] [id number] [place] [address]- 1647 Oct, 2014 [facility] [place] [facility] [id number] [place] [address]- 0480 Oct, 2014 [facility] [place] [facility] [address] [facility] [id number] [address]- 8936 Oct, 2014 [facility] [place] [facility] [address] [facility] [id number] [place] [address]- 6678 Oct, 2014 [facility] [place] [facility] [address] [facility] [id number] [place] [address]- 1133 Oct, 2014 [facility] [place] [facility] [address] [facility] [id number] [place] [address]- 4215 Sep, [facility] [place] [facility] [address] [facility] [id number] [address] Sep, [facility] [address] [facility] [id number] [place] [address] 16 May, 2009 IMMUNIZATIONS No Known Immunizations SOCIAL HISTORY Never Assessed REASON FOR VISIT Refill Request PLAN OF CARE VITAL SIGNS MEDICATIONS Medication Instructions Dosage Frequency Start Date End Date Duration Status Furosemide 20 mg TAKE 1 TABLET BY MOUTH EVERY DAY NEEDED 30 Active RESULTS No Results PROCEDURES No Known [...]
--- OUTSIDE RECORDS SUMMARY | 2018-06-29 09:06 | XMS REPORT ---
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 Active [id number] Problem Chronic pain syndrome G89.4 Active 582102013 Problem Anxiety F41.9 Active 58678082 Problem T12 compression fracture S22.080A Active 410845780 Problem Allergic rhinitis, unspecified allergic rhinitis trigger, unspecified rhinitis seasonality J30.9 Active 70588666 Problem Osteoporosis M81.0 Active 96865657 Problem Drug induced constipation K59.03 Active 263466909333885 Problem Primary insomnia F51.01 Active 1389111 Problem Other nonspecific abnormal finding of lung field R91.8 Resolved 750654232 Problem Irritable bowel syndrome without diarrhea K58.9 Active 43188422 Problem 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 Active 488184444 Problem Tobacco use Z72.0 Active 487085307 Problem Chronic obstructive pulmonary disease, unspecified COPD type J44.9 Active 18006220 Problem Nocturnal hypoxia G47.34 Active 649767906 Problem Persistent atrial fibrillation I48.1 Active 916394436 Problem Essential hypertension I10 Active 24440098 Problem Hypothyroidism, unspecified hypothyroidism type E03.9 Active 11682646 Problem 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 Active 22409088 ALLERGIES No Information ENCOUNTERS Encounter Location Date Diagnosis [facility] [address] [facility] [id number] [address] Mar, [facility] [id number] [address] Feb, [facility] [address], [place] [address] Feb, [facility] [address], [place] [address] Feb, [facility] [address], [place] [address] 9768 Feb, Other chronic pain G89.29 ; Rectal bleeding K62.5 and Chronic pain syndrome G89.4 [facility] [id number] [address] 15 Feb, 2018 [place] [id number] [place] [address] 67596- 7286 14 Feb, 2018 [place] [id number] [place] [address] 61646- 6551 05 Feb, 2018 Other chronic pain G89.29 ; Essential hypertension I10 ; Osteoporosis M81.0 ; Drug induced constipation K59.03 ; Chronic obstructive pulmonary disease, unspecified COPD type J44.9 ; Hypothyroidism, unspecified hypothyroidism type E03.9 ; 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 ; Right ear pain H92.01 and Sore throat J02.9 [facility] [address], [place] [address] January, [place] [address], [place] [address] 1833 January, Low back pain M54.5 ; Other chronic pain G89.29 ; Pain in thoracic spine M54.6 and Neck pain M54.2 [facility] [id number] [address] 9501 Dec, Low back pain M54.5 ; Other chronic pain G89.29 ; Pain in thoracic spine M54.6 and Neck pain M54.2 [place] [address], [place] [address] 57[address] Dec, 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 and Chronic obstructive pulmonary disease, unspecified COPD type J44.9 [facility] [place] [id number] [place] [address] 41618- 0664 Dec, [facility] [address] [address]- [address] Dec, Hypothyroidism, unspecified hypothyroidism type E03.9 [place] [address] [address]- 3225 Oct, Essential hypertension I10 [place] [address] 24435- 1075 Oct, [facility] [facility] [address] [address]- 3599 Sep, [facility] [address] [address]34- 7151 Sep, 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 [place] [address] [address]- 6763 Aug, Drug induced constipation K59.03 [place] [address] 06[address]- 8430 Aug, [facility] [address] [address]- 2363 Jul, Other chronic pain G89.29 [facility] [address] [address]- 0226 Jul, [facility] [facility] [address] [address]- 4912 Jul, Well woman exam (no gynecological exam) Z00.00 ; Encounter for immunization Z23 ; Tobacco use Z72.0 and 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 [place] [id number] [place] [address] 38945- 1833 Jul, [place] [address] 18194- 7599 Jul, Drug induced constipation K59.03 [facility] [address], [place] [address] Jun, Chronic obstructive pulmonary disease, unspecified COPD type J44.9 ; Tobacco use Z72.0 ; Hypothyroidism, unspecified hypothyroidism type E03.9 ; Other chronic pain G89.29 ; Drug induced constipation K59.03 and COPD exacerbation J44.1 [facility] [id number] [place] [address] 92565- 0937 Jun, [facility] [id number] [place] [address] 49285- 9668 Jun, [facility] [id number] [place] [address] 96173- 1730 Jun, Osteoporosis M81.0 [facility] [id number] [place] [address] 10615- 2580 Jun, [facility] [id number] [place] [address] 10128- 9058 Jun, Other chronic pain G89.29 [facility] [id number] [place] [address] 26753- 0753 Jun, Other chronic pain G89.29 [facility] [id number] [place] [address] 65197- 1264 Jun, Hypothyroidism, unspecified hypothyroidism type E03.9 [facility] [id number] [place] [address] 54743- 5586 Jun, [facility] [id number] [place] [address] 84035- 7686 May, [facility] [id number] [place] [address] 79657- 1816 May, COPD exacerbation J44.1 ; Pain of left lower extremity M79.605 ; Burn T30.0 ; Fatigue, unspecified type R53.83 ; Anemia, unspecified type D64.9 ; Adverse effect of other opioids, initial encounter T40.2X5A and Drug induced constipation K59.03 [facility] [address], [place] [address]- 1211 May, [facility] [id number] [place] [address] 08155- 3113 May, Burn T30.0 [facility] [id number] [place] [address] 36381- 1782 18 May, 2017 Other chronic pain G89.29 and Burn T30.0 [facility] [id number] [place] [address] 98877- 0920 14 May, 2017 Other chronic pain G89.29 [facility] [id number] [place] [address] 48253- 9600 Apr, [facility] [id number] [place] [address] 75850- 1567 Apr, [facility] [id number] [place] [address] 10127- 3956 Apr, [facility] [id number] [place] [address] 29629- 0277 Apr, [facility] [id number] [place] [address] 12810- 8852 Apr, Other chronic pain G89.29 [facility] [id number] [place] [address] 42481- 5148 Apr, Fatigue, unspecified type R53.83 ; Hypothyroidism, unspecified hypothyroidism type E03.9 ; Other chronic pain G89.29 ; Essential hypertension I10 ; Persistent atrial fibrillation I48.1 ; Chronic obstructive pulmonary disease, unspecified COPD type J44.9 ; Nocturnal hypoxia G47.34 ; Irritable bowel syndrome without diarrhea K58.9 ; Hyponatremia E87.1 ; Osteoporosis M81.0 and Primary insomnia F51.01 [facility] [id number] [place] [address] 96891- 6987 Feb, [facility] [address] [address] [address]- 7361 January, [place] [address] 31943- 3002 Oct, Essential hypertension I10 [address] [address]- 8607 Sep, Shortness of breath R06.02 ; COPD with exacerbation J44.1 and Weakness R53.[address] 26985- 5951 Sep, Drug-induced constipation K59.03 and Allergic rhinitis, unspecified allergic rhinitis trigger, unspecified rhinitis seasonality J30.[address] [address]151- 8830 Sep, [address] 86297- 7496 Sep, [address] 36063- 1510 Sep, [address] 0[address]70- 6762 Jul, [address] 28577- 3049 Jul, Other chronic pain G89.29 ; Hematuria R31.9 ; Screening for breast cancer Z12.39 ; Anxiety F41.9 ; Primary insomnia F51.01 ; Drug-induced constipation K59.03 and Encounter for immunization Z23 [address] 19460- 7315 Jul, 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 82782- 0352 Jun, 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 and Hyponatremia E87.[address] 41852- 2368 Jun, 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 and Hyponatremia E87.1 [place] [id number] [place] [address] 90511- 6386 May, Hyponatremia E87.1 [place] [id number] [place] [address] 95854- 2305 May, Essential hypertension I10 ; Tobacco use Z72.0 ; Hyponatremia E87.1 ; Allergic rhinitis, unspecified allergic rhinitis trigger, unspecified rhinitis seasonality J30.9 and Osteoporosis M81.0 [place] [id number] [place] [address] 63104- 1221 Mar, [address] 61937- 2935 Mar, [place] [address] 18622- 8463 Mar, Hyponatremia E87.1 [place] [id number] [place] [address] 81989- 8338 Feb, Essential hypertension I10 ; Hypothyroidism, unspecified [...] Concern about skin disease without diagnosis Z71.1 [place] [id number] [place] [address] 30961- 7617 Feb, [address] 70176- 2889 Feb, Other nonspecific abnormal finding of lung field R91.8 [place] [id number] [place] [address] 25727- 2267 Dec, [place] [address] [place] [address]- 5760 Dec, [facility] [id number] [place] [address] 93125- 7516 Nov, [facility] [id number] [place] [address] 207498- 3164 Nov, [facility] [id number] [place] [address] 60246- 3267 Oct, [facility] [id number] [place] [address] 309987- 0930 Oct, [facility] [id number] [place] [address] 66631- 9566 Oct, [facility] [id number] [place] [address] 10804- 1492 Aug, Chronic obstructive pulmonary disease, unspecified COPD type J44.9 [facility] [id number] [place] [address] 75875- 2284 Aug, [facility] [id number] [place] [address] 61972- 4664 Aug, Rectal bleeding K62.5 and GERD (gastroesophageal reflux disease) K21.9 [facility] [id number] [place] [address] 22692- 8063 Jul, [facility] [id number] [place] [address] 56338- 7709 Jul, 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 [facility] [id number] [place] [address] 79894- 1005 Jun, [facility] [id number] [place] [address] 33745- 9482 Jun, [facility] [id number] [place] [address] 76989- 6851 May, Adrenal mass 255.9 and Abnormal dexamethasone suppression test 794.6 [facility] [address] [place] [address]- 8821 May, Adrenal mass 255.9 [facility] [id number] [place] [address] 90782- 5343 May, [facility] [id number] [place] [address] 36798- 0059 18 May, 2015 Pneumonia 486 and COPD (chronic obstructive pulmonary disease) 496 [facility] [id number] [place] [address] 97911- 8683 17 May, 2014 [facility] [id number] [place] [address] 83946- 0487 14 May, 2014 [facility] [id number] [place] [address] 81558- 4152 11 May, 2015 [facility] [id number] [place] [address] 88639- 2691 10 May, 2015 [facility] [id number] [place] [address] 90551- 7972 09 May, 2015 [facility] [id number] [place] [address] 22431- 0618 08 May, 2015 [facility] [id number] [place] [address] 51747- 5850 04 May, 2015 Adrenal mass 255.9 [facility] [id number] [place] [address] 78383- 9147 Apr, Adrenal mass 255.9 ; Hypothyroidism 244.9 ; Chronic sore throat 472.1 ; Atrial fibrillation 427.31 ; Hypertension 401.9 ; Generalized anxiety disorder 300.02 ; Chronic pain 338.29 and COPD (chronic obstructive pulmonary disease) 496 [facility] [id number] [place] [address] 28398- 3894 Apr, [facility] [id number] [place] [address] 15569- 1905 Apr, [facility] [id number] [place] [address] 44994- 3201 Mar, [facility] [id number] [address]- 0725 Mar, Adrenal mass 255.9 [facility] [address], [place] [address]- 3816 Mar, [facility] [address], [place] [address]- 8600 Mar, Chronic sore throat 472.1 and Adrenal mass 255.9 [facility] [address], [place] [address]- 3535 Mar, [facility] [id number] [place] [address] 92329- 1795 Feb, [facility] [address], [place] [address]- 3907 Feb, [facility] [address], [place] [address]- 5345 Feb, [facility] [address], [place] [address]- 2813 Feb, [facility] [address], [place] [address]- 8353 Feb, [facility] [address], [place] [address]- 6529 Feb, [facility] [address], [place] [address]- 6351 Feb, [facility] [address], [place] [address]- 0009 Feb, [facility] [address], [place] [address]- 3919 Feb, [facility] [id number], [place] [address]- 3577 January, Adrenal mass 255.9 ; Hypothyroidism 244.9 ; Chronic sore throat 472.1 ; Atrial fibrillation 427.31 ; Hypertension 401.9 ; Generalized anxiety disorder 300.02 ; Chronic pain 338.29 and COPD (chronic obstructive pulmonary disease) 496 [facility] [address], [place] [address]- 3654 January, [facility] [address], [place] [address]- 1886 January, [facility] [id number] [place] [address] 25017- 3428 January, Sinusitis 473.9 [facility] [address], [place] [address]- 3814 January, [facility] [id number] 2477 January, [facility] [address], [place] [address]- 3512 Dec, [facility] [address], [place] [address]- 3311 Dec, [facility] [address], [place] [address]- 9473 Nov, [facility] [address] [address]- 3295 Nov, [facility] [address], [place] [address]- 9969 Nov, [facility] [address] [address]- 5033 Nov, [facility] [id number]- 0446 Oct, [facility] [address], [place] [address]- 3766 Oct, [facility] [address], [place] [address]- 2726 Oct, [facility] [address] [address]- 0689 Oct, 2014 [facility] [place] [facility] [address] [id number] [place] [address]- 2038 Oct, 2014 [facility] [place] [facility] [address] [facility] [id number] [place] [address]- 6721 Oct, 2014 [facility] [place] [facility] [address] [facility] [id number] [place] [address]- 7521 Oct, 2014 [facility] [place] [facility] [address] [facility] [id number] [place] [address]- 6286 Oct, 2014 [facility] [place] [facility] [address] [facility] [id number] [place] [address]- 8166 Oct, 2014 [facility] [place] [facility] [id number] [address]- 7325 Oct, 2014 [facility] [place] [facility] [address], [place] [address]- 4565 Oct, 2014 [facility] [place] [facility] [address] [facility] [id number] [address]- 3536 Oct, 2014 [facility] [place] [facility] [address] [address]- 0263 Oct, 2014 [facility] [place] [facility] [id number] [address]- 0805 Oct, 2014 [facility] [place] [facility] [address] [facility] [id number], [place] [address]- 4079 Oct, 2014 [facility] [place] [facility] [address] [facility] [id number], [place] [address]- 0764 Oct, 2014 [facility] [place] [facility] [address] [facility] [id number], [place] [address]- 3493 Oct, 2014 [facility] [place] [facility] [address] [facility] [id number], [place] [address]- 6718 Oct, 2014 [facility] [place] [facility] [address], [place] [address]- 2546 Sep, [facility] [address] [facility] [id number] [place] [address]- 6644 Sep, [facility] [address] [facility] [id number] [place] [address]- 8096 May, IMMUNIZATIONS No Known Immunizations SOCIAL HISTORY Never Assessed REASON FOR VISIT Mammgram chart update PLAN OF CARE VITAL SIGNS MEDICATIONS [...]
[2018-06-29] MEDS ORDERED: LIDOCAINE PF 2% 5 ML (XYLOCAINE) VIAL ONE (09:07)
[2018-06-29] MEDS ORDERED: SUCCINYLCHOLINE INJ 100 MG/5 ML SYR ONE (09:07)
[2018-06-29] MEDS ORDERED: SEVOFLURANE (ULTANE) 15 ML INHAL SOLN ONE (09:07)
[2018-06-29] MEDS ORDERED: ONDANSETRON 4 MG/2 ML (SDV) Z0FRAN ONE (09:07)
[2018-06-29] MEDS ORDERED: proPOfol 200 MG/20 ML (DIPRIVAN) VIAL IV ONE (09:07)
[2018-06-29] MEDS ORDERED: DEXAMETHASONE 10 MG/ML (DECADRON) 1 ML VIAL ONE (09:07)
--- OUTSIDE RECORDS SUMMARY | 2018-06-29 09:07 | XMS REPORT ---
Author Author SHANICE OBINNA [facility] Address [address] [place] [address] Care Team Providers Care Network Design Architect Name Role Phone OBINNA PRASAD Unavailable PROBLEMS Type Condition ICD9-CM Code UOP46-LE Code Onset Dates Condition Status SNOMED Code Problem 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 Active 037471929 Problem Rectal bleeding K62.5 Active 58233724 Problem 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 Active 2256432231744044 Problem T12 compression fracture S22.080A Active 838976530 Problem Tobacco use Z72.0 Active 543945585 Problem COPD exacerbation J44.1 Active 857621874 Problem Osteoporosis M81.0 Active 44010558 Problem Allergic rhinitis, unspecified allergic rhinitis trigger, unspecified rhinitis seasonality J30.9 Active 40935373 Problem Drug induced constipation K59.03 Active 837907756795350 Problem Primary insomnia F51.01 Active 5120986 Problem Persistent atrial fibrillation I48.1 Active 020410836 Problem Other chronic pain G89.29 Active 49852153 Problem Other nonspecific abnormal finding of lung field R91.8 Resolved 982412262 Problem Irritable bowel syndrome without diarrhea K58.9 Active 04194638 Problem Nocturnal hypoxia G47.34 Active 021377178 Problem Essential hypertension I10 Active 81033699 Problem Hypothyroidism, unspecified hypothyroidism type E03.9 Active 37821567 Problem 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 and Chronic obstructive pulmonary disease, unspecified COPD type J44.9 [place] [address] 56256- 9390 Dec, [place] [address] 16947- 3382 Dec, Hypothyroidism, unspecified hypothyroidism type E03.9 [place] [address] [address]66- 4584 Oct, Essential hypertension I10 [place] [address] 27586- 3864 Oct, [place] [address] 18062- 0226 Sep, [place] [address] 95709- 7202 Sep, 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 [place] [address] [place] [id number] [place] [address] 85994- 5248 Aug, Drug induced constipation K59.03 [place] [address] 22834- 1032 Aug, [place] [address] 67690- 7813 Jul, Other chronic pain G89.29 [place] [address] 50954- 1859 Jul, [facility] [address], [place] [address] Jul, Well woman exam (no gynecological exam) Z00.00 ; Encounter for immunization Z23 ; Tobacco use Z72.0 and 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 [facility] [address] [place] [id number] [place] [address] 45966- 7693 Jul, [facility] [address] [place] [id number] [place] [address] 54112- 2281 Jul, Drug induced constipation K59.03 [facility] [address] [place] [id number] [place] [address] 25186- 6648 Jun, Chronic obstructive pulmonary disease, unspecified COPD type J44.9 ; Tobacco use Z72.0 ; Hypothyroidism, unspecified hypothyroidism type E03.9 ; Other chronic pain G89.29 ; Drug induced constipation K59.03 and COPD exacerbation J44.1 [facility] [address] [place] [id number] [place] [address] 92453- 6318 Jun, [facility] [address] [place] [id number] [place] [address] 81850- 4691 Jun, [facility] [address] [place] [id number] [place] [address] 29722- 9368 Jun, Osteoporosis M81.0 [facility] [address] [place] [id number] [place] [address] 66639- 3498 Jun, [facility] [address] [place] [id number] [place] [address] 90748- 0363 Jun, Other chronic pain G89.29 [facility] [address] [place] [id number] [place] [address] 38033- 3140 Jun, Other chronic pain G89.29 [facility] [address] [place] [id number] [place] [address] 39922- 0998 Jun, Hypothyroidism, unspecified hypothyroidism type E03.9 [facility] [address] [place] [address] 9120 Jun, [facility] [address] [place] [id number] [place] [address] 85233- 1040 May, [facility] [address] [place] [id number] [place] [address] 05284- 3431 May, COPD exacerbation J44.1 ; Pain of left lower extremity M79.605 ; Burn T30.0 ; Fatigue, unspecified type R53.83 ; Anemia, unspecified type D64.9 ; Adverse effect of other opioids, initial encounter T40.2X5A and Drug induced constipation K59.03 [facility] [address] [place] [id number] [place] [address] 32049- 0566 May, [facility] [address] [place] [id number] [place] [address] 35036- 3886 May, Burn T30.0 [facility] [address] [place] [id number] [place] [address] 31158- 0606 18 May, 2017 Other chronic pain G89.29 and Burn T30.0 [facility] [address] [place] [id number] [place] [address] 87095- 1648 14 May, 2017 Other chronic pain G89.29 [facility] [address] [place] [id number] [place] [address] 56654- 9602 Apr, [facility] [address] [place] [id number] [place] [address] 02937- 9109 Apr, [facility] [address] [place] [id number] [place] [address] 59908- 3710 Apr, [facility] [address] [place] [id number] [place] [address] 77779- 3583 Apr, [facility] [address] [place] [id number] [place] [address] 05650- 7742 Apr, Other chronic pain G89.29 [facility] [address] [place] [address] 38214- 5158 Apr, Fatigue, unspecified type R53.83 ; Hypothyroidism, unspecified hypothyroidism type E03.9 ; Other chronic pain G89.29 ; Essential hypertension I10 ; Persistent atrial fibrillation I48.1 ; Chronic obstructive pulmonary disease, unspecified COPD type J44.9 ; Nocturnal hypoxia G47.34 ; Irritable bowel syndrome without diarrhea K58.9 ; Hyponatremia E87.1 ; Osteoporosis M81.0 and Primary insomnia F51.[address] [address]- 1016 Feb, [address] [address]- 4777 January, [address] 63990- 6485 Oct, Essential hypertension I10 [address] 36395- 7475 Sep, Shortness of breath R06.02 ; COPD with exacerbation J44.1 and Weakness R53.1 [place] [id number] [place] [address] 47775- 3522 Sep, Drug-induced constipation K59.03 and Allergic rhinitis, unspecified allergic rhinitis trigger, unspecified rhinitis seasonality J30.9 [place] [id number] [place] [address] 88282- 8040 Sep, [place] [id number] [place] [address] 15874- 8545 Sep, [place] [id number] [place] [address] 94963- 1769 Sep, [place] [id number] [place] [address] 39499- 5049 Jul, [place] [id number] [place] [address] 15271- 7664 Jul, Other chronic pain G89.29 ; Hematuria R31.9 ; Screening for breast cancer Z12.39 ; Anxiety F41.9 ; Primary insomnia F51.01 ; Drug-induced constipation K59.03 and Encounter for immunization Z23 [place] [address] 06586- 9267 Jul, 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 [place] [address] 10385- 9032 Jun, 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 and Hyponatremia E87.1 [place] [address] 80893- 8757 Jun, 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 and Hyponatremia E87.1 [place] [address] 88840- 7727 May, Hyponatremia E87.1 [place] [address] 18571- 2678 May, Essential hypertension I10 ; Tobacco use Z72.0 ; Hyponatremia E87.1 ; Allergic rhinitis, unspecified allergic rhinitis trigger, unspecified rhinitis seasonality J30.9 and Osteoporosis M81.0 [place] [address] 49109- 2484 Mar, [place] [address] 20831- 3589 Mar, [place] [address] 80577- 4471 Mar, Hyponatremia E87.1 [place] [address] 96657- 2986 Feb, Essential hypertension I10 ; Hypothyroidism, unspecified [...] Concern about skin disease without diagnosis Z71.1 [facility] [address] [place] [id number] [place] [address] 49668- 6564 Feb, [facility] [address] [place] [id number] [place] [address] 40706- 5752 Feb, Other nonspecific abnormal finding of lung field R91.8 [facility] [address] 40826- 8797 Dec, [facility] [address] [place] [id number] [place] [address] 31010- 2980 Dec, [facility] [address] 50498- 6188 Nov, [facility] [address] 19568- 3519 Nov, [facility] [address] 45793- 1381 Oct, [facility] [address] [place] [id number] [place] [address] 22888- 3036 Oct, [facility] [address] [place] [id number] [place] [address] 00929- 2755 Oct, [facility] [address] [place] [id number] [place] [address] 12751- 3995 Aug, Chronic obstructive pulmonary disease, unspecified COPD type J44.9 [facility] [address] [place] [id number] [place] [address] 85652- 2311 Aug, [facility] [address] [place] [id number] [place] [address] 61778- 6854 10 Aug, 2015 Rectal bleeding K62.5 and GERD (gastroesophageal reflux disease) K21.9 [facility] [address] [place] [id number] [place] [address] 59796- 1014 Jul, [facility] [address] 38585- 2041 Jul, 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 [facility] [address] [place] [id number] [place] [address] 79801- 8370 Jun, [facility] [address] [place] [id number] [place] [address] 34141- 9376 Jun, [facility] [address] [place] [id number] [place] [address] 09005- 8709 23 May, 2015 Adrenal mass 255.9 and Abnormal dexamethasone suppression test 794.6 [facility] [address] [place] [id number] [place] [address] 73485- 0089 May, Adrenal mass 255.9 [facility] [address] 80246- 5049 May, [facility] [address] [place] [id number] [place] [address] 00651- 7215 18 May, 2015 Pneumonia 486 and COPD (chronic obstructive pulmonary disease) 496 [facility] [address] [place] [id number] [place] [address] 63182- 1163 17 May, 2015 [facility] [address] 21738- 6212 14 May, 2015 [facility] [address] [place] [id number] [place] [address] 78498- 2559 11 May, 2015 [facility] [address] [place] [id number] [place] [address] 60798- 9846 10 May, 2015 [facility] [address] [place] [id number] [place] [address] 17799- 5745 09 May, 2015 [facility] [address] [place] [id number] [place] [address] 72154- 8284 08 May, 2015 [facility] [address] [place] [id number] [place] [address] 42615- 7502 04 May, 2015 Adrenal mass 255.9 [facility] [address] [place] [id number] [place] [address] 91638- 2544 Apr, Adrenal mass 255.9 ; Hypothyroidism 244.9 ; Chronic sore throat 472.1 ; Atrial fibrillation 427.31 ; Hypertension 401.9 ; Generalized anxiety disorder 300.02 ; Chronic pain 338.29 and COPD (chronic obstructive pulmonary disease) 496 [facility] [address] [place] [address]- 3165 Apr, [facility] [address] [place] [id number] [place] [address] 64608- 3109 Apr, [facility] [address] [place] [id number] [place] [address] 17795- 0116 Mar, [facility] [address] [place] [id number] [place] [address] 81049- 4595 Mar, Adrenal mass 255.9 [facility] [address] [place] [id number] [place] [address] 04830- 1336 Mar, [facility] [address] [place] [id number] [place] [address] 75292- 2794 Mar, Chronic sore throat 472.1 and Adrenal mass 255.9 [facility] [address] [place] [id number] [place] [address] 14623- 3007 Mar, [facility] [address] [place] [id number] [place] [address] 34750- 3014 Feb, [facility] [address] [place] [address] 31036- 4520 Feb, [facility] [address] [place] [id number] [place] [address] 64769- 3371 Feb, [facility] [address] [place] [id number] [place] [address] 11828- 0556 Feb, [facility] [address] [place] [id number] [place] [address] 04103- 7368 Feb, [facility] [address] [place] [id number] [place] [address] 74330- 4998 Feb, [facility] [address] [place] [address]- 0212 Feb, [facility] [address], [place] [address]- 1383 Feb, [facility] [address], [place] [address]- 3397 Feb, [facility] [address] [place] [address] 37176- 6698 January, Adrenal mass 255.9 ; Hypothyroidism 244.9 ; Chronic sore throat 472.1 ; Atrial fibrillation 427.31 ; Hypertension 401.9 ; Generalized anxiety disorder 300.02 ; Chronic pain 338.29 and COPD (chronic obstructive pulmonary disease) 496 [facility] [address] [place] [id number] [place] [address] 99658- 5064 January, [facility] [address] [place] [id number] [place] [address] 60479- 7126 January, [facility] [address] [place] [address] 61822- 3619 January, Sinusitis 473.9 [facility] [address] [place] [address] 75335- 6726 January, [facility] [address], [place] [address]- 2324 January, [facility] [address], [place] [address]- 3193 Dec, [facility] [address], [place] [address]- 3815 Dec, [facility] [address], [place] [address]- 9320 Nov, [facility] [address], [place] [address]- 9084 Nov, [facility] [address], [place] [address]- 3405 Nov, [facility] [place] [facility] [address] [facility] [id number] [place] [address]- 9446 Nov, [facility] [place] [facility] [address] [id number] [place] [address]- 9966 Oct, 2014 [facility] [place] [facility] [address] [facility] [id number] [place] [address] 2546 Oct, 2014 [facility] [place] [facility] [address] [facility] [id number] [place] [address]- 4891 Oct, 2014 [facility] [place] [facility] [address] [id number] [place] [address]- 2540 Oct, 2014 [facility] [place] [facility] [address] [facility] [id number] [place] [address]- 0766 Oct, 2014 [facility] [place] [facility] [address] [facility] [id number] [place] [address]- 1894 Oct, 2014 [facility] [place] [facility] [address] [facility] [id number] [place] [address]- 0353 Oct, 2014 [facility] [place] [facility] [address] [facility] [id number] [place] [address]- 8695 Oct, 2014 [facility] [place] [facility] [address] [facility] [id number] [place] [address]- 6217 Oct, 2014 [facility] [place] [facility] [address] [facility] [id number] [place] [address]- 0519 Oct, 2014 [facility] [place] [facility] [address] [facility] [id number], [place] [address]- 2548 Oct, 2014 [facility] [place] [facility] [address] [facility] [id number] [place] [address]- 2546 Oct, 2014 [facility] [place] [facility] [address] [facility] [id number] [place] [address]- 9178 Oct, 2014 [facility] [place] [facility] [address] [facility] [id number] [place] [address]- 4326 Oct, 2014 [facility] [place] [facility] [address] [facility] [id number], [place] [address]- 5496 Oct, [facility] [address] [place] [id number] 6472 Oct, [facility] [address], [place] [address]- 4136 Oct, [facility] [address] [place] [id number] [address]- 9168 Oct, [facility] [address]- 3047 Sep, [facility] [address], [place] [address]- 9779 Sep, [facility] [address] [place] [id number] [address]- 2635 May, IMMUNIZATIONS No Known Immunizations SOCIAL HISTORY Never Assessed REASON FOR VISIT PLAN OF CARE VITAL SIGNS MEDICATIONS Unknown [...]
--- OUTSIDE RECORDS SUMMARY | 2018-06-29 09:07 | XMS REPORT ---
Author Author SHANICE OBINNA [facility] Address [address] [place] [address] Care Team Providers Care Rand Sewer Name Role Phone OBINNA PRASAD Unavailable PROBLEMS Type Condition ICD9-CM Code AAV42-RT Code Onset Dates Condition Status SNOMED Code Problem 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 Active 275778845 Problem Rectal bleeding K62.5 Active 80768325 Problem 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 Active 2607706581008384 Problem T12 compression fracture S22.080A Active 686436026 Problem Tobacco use Z72.0 Active 838948281 Problem COPD exacerbation J44.1 Active 897048007 Problem Osteoporosis M81.0 Active 96016547 Problem Allergic rhinitis, unspecified allergic rhinitis trigger, unspecified rhinitis seasonality J30.9 Active 33638798 Problem Drug induced constipation K59.03 Active 004238102235310 Problem Primary insomnia F51.01 Active 8996539 Problem Persistent atrial fibrillation I48.1 Active 806564080 Problem Other chronic pain G89.29 Active 47393565 Problem Other nonspecific abnormal finding of lung field R91.8 Resolved 060560558 Problem Irritable bowel syndrome without diarrhea K58.9 Active 42173578 Problem Nocturnal hypoxia G47.34 Active 494842592 Problem Essential hypertension I10 Active 92510904 Problem Hypothyroidism, unspecified hypothyroidism type E03.9 Active 81005733 Problem 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 and Chronic obstructive pulmonary disease, unspecified COPD type J44.9 [place] [address] 31589- 3615 Dec, [place] [address] 23247- 2813 Dec, Hypothyroidism, unspecified hypothyroidism type E03.9 [place] [address] 74800- 9479 Oct, Essential hypertension I10 [place] [address] 26445- 2729 Oct, [place] [address] 81841- 7046 Sep, [place] [address] 70621- 6389 Sep, 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 [place] [address] [place] [id number] [place] [address] 22251- 2103 Aug, Drug induced constipation K59.03 [place] [address] 33055- 3294 Aug, [place] [address] 89997- 1377 Jul, Other chronic pain G89.29 [place] [address] 86443- 3019 Jul, [facility] [address] [address] Jul, Well woman exam (no gynecological exam) Z00.00 ; Encounter for immunization Z23 ; Tobacco use Z72.0 and 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 [facility] [address] [place] [id number] [place] [address] 98632- 2315 Jul, [facility] [address] [place] [id number] [place] [address] 89408- 6921 Jul, Drug induced constipation K59.03 [facility] [address] [place] [id number] [place] [address] 57214- 7710 Jun, Chronic obstructive pulmonary disease, unspecified COPD type J44.9 ; Tobacco use Z72.0 ; Hypothyroidism, unspecified hypothyroidism type E03.9 ; Other chronic pain G89.29 ; Drug induced constipation K59.03 and COPD exacerbation J44.1 [facility] [address] [place] [id number] [place] [address] 84682- 7994 Jun, [facility] [address] [place] [id number] [place] [address] 79922- 7572 Jun, [facility] [address] [place] [id number] [place] [address] 64268- 8130 Jun, Osteoporosis M81.0 [facility] [address] [place] [id number] [place] [address] 35232- 7480 Jun, [facility] [address] [place] [id number] [place] [address] 74807- 3499 Jun, Other chronic pain G89.29 [facility] [address] [place] [id number] [place] [address] 42939- 7303 Jun, Other chronic pain G89.29 [facility] [address] [place] [id number] [place] [address] 24791- 9625 Jun, Hypothyroidism, unspecified hypothyroidism type E03.9 [facility] [address] [place] [address]- 0356 Jun, [facility] [address] [place] [id number] [place] [address] 32564- 4463 May, [facility] [address] [place] [id number] [place] [address] 68154- 1746 May, COPD exacerbation J44.1 ; Pain of left lower extremity M79.605 ; Burn T30.0 ; Fatigue, unspecified type R53.83 ; Anemia, unspecified type D64.9 ; Adverse effect of other opioids, initial encounter T40.2X5A and Drug induced constipation K59.03 [facility] [address] [place] [id number] [place] [address] 17336- 4576 May, [facility] [address] [place] [id number] [place] [address] 51200- 8723 May, Burn T30.0 [facility] [address] [place] [id number] [place] [address] 29011- 9519 18 May, 2017 Other chronic pain G89.29 and Burn T30.0 [facility] [address] [place] [id number] [place] [address] 98553- 3455 14 May, 2017 Other chronic pain G89.29 [facility] [address] [place] [id number] [place] [address] 91247- 0101 Apr, [facility] [address] [place] [id number] [place] [address] 60785- 1386 Apr, [facility] [address] [place] [id number] [place] [address] 67625- 8082 Apr, [facility] [address] [place] [id number] [place] [address] 65556- 5035 Apr, [facility] [address] [place] [id number] [place] [address] 97459- 6990 Apr, Other chronic pain G89.29 [facility] [address] [place] [address] 64730- 0969 Apr, Fatigue, unspecified type R53.83 ; Hypothyroidism, unspecified hypothyroidism type E03.9 ; Other chronic pain G89.29 ; Essential hypertension I10 ; Persistent atrial fibrillation I48.1 ; Chronic obstructive pulmonary disease, unspecified COPD type J44.9 ; Nocturnal hypoxia G47.34 ; Irritable bowel syndrome without diarrhea K58.9 ; Hyponatremia E87.1 ; Osteoporosis M81.0 and Primary insomnia F51.[address] 29596- 8783 Feb, [address] 11839- 8455 January, [address] 20390- 1879 Oct, Essential hypertension I10 [address] 34965- 5011 Sep, Shortness of breath R06.02 ; COPD with exacerbation J44.1 and Weakness R53.1 [place] [id number] [place] [address] 55846- 1420 Sep, Drug-induced constipation K59.03 and Allergic rhinitis, unspecified allergic rhinitis trigger, unspecified rhinitis seasonality J30.9 [place] [id number] [place] [address] 57678- 3675 Sep, [place] [id number] [place] [address] 48688- 3458 Sep, [place] [id number] [place] [address] 16760- 7780 Sep, [place] [id number] [place] [address] 39125- 2629 Jul, [place] [id number] [place] [address] 23560- 0371 Jul, Other chronic pain G89.29 ; Hematuria R31.9 ; Screening for breast cancer Z12.39 ; Anxiety F41.9 ; Primary insomnia F51.01 ; Drug-induced constipation K59.03 and Encounter for immunization Z23 [place] [address] 90463- 1069 Jul, 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 [place] [address] 07911- 6155 Jun, 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 and Hyponatremia E87.1 [place] [address] 50120- 7098 Jun, 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 and Hyponatremia E87.1 [place] [address] 67746- 5726 May, Hyponatremia E87.1 [place] [address] 55312- 5284 May, Essential hypertension I10 ; Tobacco use Z72.0 ; Hyponatremia E87.1 ; Allergic rhinitis, unspecified allergic rhinitis trigger, unspecified rhinitis seasonality J30.9 and Osteoporosis M81.0 [place] [address] 87839- 3902 Mar, [place] [address] 32883- 7790 Mar, [place] [address] 81913- 4587 Mar, Hyponatremia E87.1 [place] [address] 75146- 3047 Feb, Essential hypertension I10 ; Hypothyroidism, unspecified [...] Concern about skin disease without diagnosis Z71.1 [facility] [address] [place] [id number] [place] [address] 28832- 5561 Feb, [facility] [address] [place] [id number] [place] [address] 23020- 1923 Feb, Other nonspecific abnormal finding of lung field R91.8 [facility] [address] 64009- 8436 Dec, [facility] [address] [place] [id number] [place] [address] 35254- 5717 Dec, [facility] [address] 82752- 3726 Nov, [facility] [address] 93862- 5131 Nov, [facility] [address] 81662- 8318 Oct, [facility] [address] [place] [id number] [place] [address] 04830- 7910 Oct, [facility] [address] [place] [id number] [place] [address] 93223- 0544 Oct, [facility] [address] [place] [id number] [place] [address] 33086- 1930 Aug, Chronic obstructive pulmonary disease, unspecified COPD type J44.9 [facility] [address] [place] [id number] [place] [address] 34553- 5626 Aug, [facility] [address] [place] [id number] [place] [address] 24905- 3740 10 Aug, 2015 Rectal bleeding K62.5 and GERD (gastroesophageal reflux disease) K21.9 [facility] [address] [place] [id number] [place] [address] 03032- 2886 Jul, [facility] [address] 73780- 8443 Jul, 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 [facility] [address] [place] [id number] [place] [address] 20145- 9575 Jun, [facility] [address] [place] [id number] [place] [address] 47426- 5223 Jun, [facility] [address] [place] [id number] [place] [address] 87480- 0538 23 May, 2015 Adrenal mass 255.9 and Abnormal dexamethasone suppression test 794.6 [facility] [address] [place] [id number] [place] [address] 02880- 9202 May, Adrenal mass 255.9 [facility] [address] 57943- 5358 May, [facility] [address] [place] [id number] [place] [address] 05117- 9058 18 May, 2015 Pneumonia 486 and COPD (chronic obstructive pulmonary disease) 496 [facility] [address] [place] [id number] [place] [address] 44868- 0975 17 May, 2015 [facility] [address] 50026- 5689 14 May, 2015 [facility] [address] [place] [id number] [place] [address] 37796- 8032 11 May, 2015 [facility] [address] [place] [id number] [place] [address] 44399- 5294 10 May, 2015 [facility] [address] [place] [id number] [place] [address] 98057- 4317 09 May, 2015 [facility] [address] [place] [id number] [place] [address] 25735- 9435 08 May, 2015 [facility] [address] [place] [id number] [place] [address] 05861- 4830 04 May, 2015 Adrenal mass 255.9 [facility] [address] [place] [id number] [place] [address] 36782- 2541 Apr, Adrenal mass 255.9 ; Hypothyroidism 244.9 ; Chronic sore throat 472.1 ; Atrial fibrillation 427.31 ; Hypertension 401.9 ; Generalized anxiety disorder 300.02 ; Chronic pain 338.29 and COPD (chronic obstructive pulmonary disease) 496 [facility] [address] [id number] [address]- 2365 Apr, [facility] [address] [place] [id number] [place] [address] 92930- 6152 Apr, [facility] [address] [place] [id number] [place] [address] 68512- 7669 Mar, [facility] [address] [place] [id number] [place] [address] 18937- 6770 Mar, Adrenal mass 255.9 [facility] [address] [place] [id number] [place] [address] 47127- 1845 Mar, [facility] [address] [place] [id number] [place] [address] 97581- 2027 Mar, Chronic sore throat 472.1 and Adrenal mass 255.9 [facility] [address] [place] [id number] [place] [address] 87895- 9486 Mar, [facility] [address] [place] [id number] [place] [address] 44496- 0458 Feb, [facility] [address] [place] [address] 97980- 2341 Feb, [facility] [address] [place] [id number] [place] [address] 65456- 7799 Feb, [facility] [address] [place] [id number] [place] [address] 14204- 2014 Feb, [facility] [address] [place] [id number] [place] [address] 47073- 8347 Feb, [facility] [address] [place] [id number] [place] [address] 50432- 3784 Feb, [facility] [address] [place] [address]- 3449 Feb, [facility] [address], [place] [address]- 2237 Feb, [facility] [address] [address]- 1923 Feb, [facility] [address] [place] [address] 97677- 1280 January, Adrenal mass 255.9 ; Hypothyroidism 244.9 ; Chronic sore throat 472.1 ; Atrial fibrillation 427.31 ; Hypertension 401.9 ; Generalized anxiety disorder 300.02 ; Chronic pain 338.29 and COPD (chronic obstructive pulmonary disease) 496 [facility] [address] [place] [id number] [place] [address] 11863- 2421 January, [facility] [address] [place] [id number] [place] [address] 75909- 7318 January, [facility] [id number] [place] [address] 35444- 9294 January, Sinusitis 473.9 [facility] [address] [place] [address] 95981- 9619 January, [facility] [address], [place] [address]- 3604 January, [facility] [address], [place] [address]- 7106 Dec, [facility] [address], [place] [address]- 5069 Dec, [facility] [id number], [place] [address]- 9785 Nov, [facility] [id number] [address]- 3320 Nov, [facility] [id number], [place] [address]- 8106 Nov, [facility] [place] [facility] [address] [facility] [id number] [place] [address]- 2246 Nov, [facility] [place] [facility] [address] [id number] [place] [address]- 1756 Oct, 2014 [facility] [place] [facility] [address] [facility] [id number] [place] [address] 2546 Oct, 2014 [facility] [place] [facility] [address] [facility] [id number] [place] [address]- 7005 Oct, 2014 [facility] [place] [facility] [address] [id number] [place] [address]- 2541 Oct, 2014 [facility] [place] [facility] [address] [facility] [id number] [place] [address]- 9346 Oct, 2014 [facility] [place] [facility] [address] [facility] [id number] [place] [address]- 0195 Oct, 2014 [facility] [place] [facility] [address] [facility] [id number] [place] [address]- 4330 Oct, 2014 [facility] [place] [facility] [address] [facility] [id number] [place] [address]- 1095 Oct, 2014 [facility] [place] [facility] [address] [facility] [id number] [place] [address]- 3046 Oct, 2014 [facility] [place] [facility] [address] [facility] [id number] [place] [address]- 1686 Oct, 2014 [facility] [place] [facility] [address] [facility] [id number], [place] [address]- 2543 Oct, 2014 [facility] [place] [facility] [address] [facility] [id number] [place] [address]- 2546 Oct, 2014 [facility] [place] [facility] [address] [facility] [id number] [place] [address]- 4241 Oct, 2014 [facility] [place] [facility] [address] [facility] [id number] [place] [address]- 8366 Oct, 2014 [facility] [place] [facility] [address] [facility] [id number], [place] [address]- 4162 Oct, [facility] [address] [place] [id number], [place] [address]- 2951 Oct, [facility] [address], [place] [address]- 2211 Oct, [facility] [address] [place] [id number], [place] [address]- 9396 Oct, [facility] [address] 2906 Sep, [facility] [address] [place] [id number], [place] [address]- 1104 Sep, [facility] [address] [place] [id number], [place] [address]- 4024 May, IMMUNIZATIONS No Known Immunizations SOCIAL HISTORY Never Assessed REASON FOR VISIT [facility] PLAN OF CARE VITAL SIGNS MEDICATIONS Unknown [...]
--- OUTSIDE RECORDS SUMMARY | 2018-06-29 09:09 | XMS REPORT ---
Author Author SHANICE OBINNA [facility] Address [address] [place] [address] Care Team Providers Care Mat Weaver Name Role Phone OBINNA PRASAD Unavailable PROBLEMS Type Condition ICD9-CM Code QKP07-JE Code Onset Dates Condition Status SNOMED Code Problem Other chronic pain G89.29 Active 70366051 Problem Rectal bleeding K62.5 Active 72614535 Problem 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 Active [id number] Problem Chronic pain syndrome G89.4 Active 890920526 Problem Anxiety F41.9 Active 30548521 Problem T12 compression fracture S22.080A Active 000825538 Problem Allergic rhinitis, unspecified allergic rhinitis trigger, unspecified rhinitis seasonality J30.9 Active 15579705 Problem Osteoporosis M81.0 Active 85588569 Problem Drug induced constipation K59.03 Active 334489581020357 Problem Primary insomnia F51.01 Active 5880770 Problem Other nonspecific abnormal finding of lung field R91.8 Resolved 070560667 Problem Irritable bowel syndrome without diarrhea K58.9 Active 57760703 Problem 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 Active 952160146 Problem Tobacco use Z72.0 Active 183051360 Problem Chronic obstructive pulmonary disease, unspecified COPD type J44.9 Active 23636623 Problem Nocturnal hypoxia G47.34 Active 012156387 Problem Persistent atrial fibrillation I48.1 Active 477807673 Problem Essential hypertension I10 Active 56396577 Problem Hypothyroidism, unspecified hypothyroidism type E03.9 Active 87858640 Problem 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 Active 28977501 ALLERGIES No Information ENCOUNTERS Encounter Location Date Diagnosis [facility] [address] [facility] [id number] [address] Mar, Chronic pain syndrome G89.4 [facility] [id number] [address] Mar, [facility] [address] [address] Mar, Chronic pain syndrome G89.4 and Other chronic pain G89.29 [facility] [address], [place] [address] Feb, Chronic obstructive pulmonary disease, unspecified COPD type J44.9 [facility] [id number] [place] [address] 00447- 8951 Feb, [facility] [id number] [place] [address] 66284- 8161 Feb, [facility] [id number] [place] [address] 70523- 6914 Feb, [facility] [id number] [place] [address] 48426- 4944 Feb, [facility] [id number] [place] [address] 82327- 1018 Feb, [facility] [address] [address] 2785 Feb, Other chronic pain G89.29 ; Rectal bleeding K62.5 and Chronic pain syndrome G89.4 [facility] [address], [place] [address] 15 Feb, 2018 [facility] [address], [place] [address] 0114 Feb, [facility] [address], [place] [address] 70[address] 05 Feb, 2018 Other chronic pain G89.29 ; Essential hypertension I10 ; Osteoporosis M81.0 ; Drug induced constipation K59.03 ; Chronic obstructive pulmonary disease, unspecified COPD type J44.9 ; Hypothyroidism, unspecified hypothyroidism type E03.9 ; 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 ; Right ear pain H92.01 and Sore throat J02.9 [facility] [id number] [place] [address] 58672- 4393 January, [facility] [address] 90779- 2761 January, Low back pain M54.5 ; Other chronic pain G89.29 ; Pain in thoracic spine M54.6 and Neck pain M54.2 [facility] [address] 04381- 3963 Dec, Low back pain M54.5 ; Other chronic pain G89.29 ; Pain in thoracic spine M54.6 and Neck pain M54.2 [facility] [address] 23612- 9754 Dec, 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 and Chronic obstructive pulmonary disease, unspecified COPD type J44.9 [facility] [id number] [place] [address] 43368- 9665 Dec, [facility] [address] 16503- 5660 Dec, Hypothyroidism, unspecified hypothyroidism type E03.9 [facility] [address] 62656- 8151 Oct, Essential hypertension I10 [facility] [id number] [place] [address] 41772- 1749 Oct, [facility] [id number] [place] [address] 86171- 8848 Sep, [facility] [id number] [place] [address] 72326- 9186 Sep, 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 [facility] [address] 58437- 6593 Aug, Drug induced constipation K59.03 [facility] [id number] [place] [address] 66726- 3269 Aug, [facility] [id number] [place] [address] 16951- 8171 Jul, Other chronic pain G89.29 [facility] [id number] [place] [address] 00702- 9754 Jul, [facility] [id number] [place] [address] 36082- 7459 Jul, Well woman exam (no gynecological exam) Z00.00 ; Encounter for immunization Z23 ; Tobacco use Z72.0 and 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 [facility] [id number] [place] [address] 50007- 6985 Jul, [facility] [id number] [place] [address] 89200- 3277 Jul, Drug induced constipation K59.03 [place] [id number] [place] [address] 27700- 4578 Jun, Chronic obstructive pulmonary disease, unspecified COPD type J44.9 ; Tobacco use Z72.0 ; Hypothyroidism, unspecified hypothyroidism type E03.9 ; Other chronic pain G89.29 ; Drug induced constipation K59.03 and COPD exacerbation J44.1 [facility] [id number] [place] [address] 61031- 3744 Jun, [facility] [id number] [place] [address] 49672- 8285 Jun, [facility] [id number] [place] [address] 36749- 7546 Jun, Osteoporosis M81.0 [facility] [id number] [place] [address] 50584- 5548 Jun, [facility] [id number] [place] [address] 89668- 1714 Jun, Other chronic pain G89.29 [facility] [id number] [place] [address] 77694- 3421 Jun, Other chronic pain G89.29 [facility] [address] [place] [address] 37538- 3975 Jun, Hypothyroidism, unspecified hypothyroidism type E03.9 [facility] [id number] [place] [address] 64679- 3276 Jun, [facility] [id number] [place] [address] 02017- 8060 May, [facility] [id number] [place] [address] 71830- 2326 May, COPD exacerbation J44.1 ; Pain of left lower extremity M79.605 ; Burn T30.0 ; Fatigue, unspecified type R53.83 ; Anemia, unspecified type D64.9 ; Adverse effect of other opioids, initial encounter T40.2X5A and Drug induced constipation K59.03 [facility] [id number] [place] [address] 91586- 9695 May, [facility] [id number] [place] [address] 29736- 0379 May, Burn T30.0 [facility] [id number] [place] [address] 21902- 5266 18 May, 2017 Other chronic pain G89.29 and Burn T30.0 [facility] [id number] [place] [address] 48788- 3758 May, Other chronic pain G89.29 [facility] [id number] [place] [address] 53856- 8958 Apr, [facility] [id number] [place] [address] 21864- 1836 Apr, [facility] [id number] [place] [address] 62303- 5528 Apr, [facility] [id number] [place] [address] 24324- 1005 Apr, [facility] [id number] [place] [address] 45006- 2168 16 Apr, 2017 Other chronic pain G89.29 [place] [address] 96013- 4726 15 Apr, 2017 Fatigue, unspecified type R53.83 ; Hypothyroidism, unspecified hypothyroidism type E03.9 ; Other chronic pain G89.29 ; Essential hypertension I10 ; Persistent atrial fibrillation I48.1 ; Chronic obstructive pulmonary disease, unspecified COPD type J44.9 ; Nocturnal hypoxia G47.34 ; Irritable bowel syndrome without diarrhea K58.9 ; Hyponatremia E87.1 ; Osteoporosis M81.0 and Primary insomnia F51.[address] 78192- 0492 Feb, [place] [address] 80430- 2028 January, [address] 72654- 9056 Oct, Essential hypertension I10 [address] 18914- 1660 Sep, Shortness of breath R06.02 ; COPD with exacerbation J44.1 and Weakness R53.1 [id number] [place] [address] 14085- 1725 Sep, Drug-induced constipation K59.03 and Allergic rhinitis, unspecified allergic rhinitis trigger, unspecified rhinitis seasonality J30.9 [place] [id number] [place] [address] 89368- 9474 Sep, [place] [id number] [place] [address] 25657- 8163 Sep, [address] 89146- 4738 Sep, [place] [address] 30371- 3066 Jul, [id number] [place] [address]- 6173 17 Jul, 2016 Other chronic pain G89.29 ; Hematuria R31.9 ; Screening for breast cancer Z12.39 ; Anxiety F41.9 ; Primary insomnia F51.01 ; Drug-induced constipation K59.03 and Encounter for immunization Z23 [place] [address] 24274- 5759 02 Jul, 2016 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 [place] [address] 40296- 7076 Jun, 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 and Hyponatremia E87.1 [place] [address] 42615- 9532 Jun, 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 and Hyponatremia E87.1 [place] [address] 00015- 9705 May, Hyponatremia E87.1 [place] [address] 59637- 9226 27 May, 2016 Essential hypertension I10 ; Tobacco use Z72.0 ; Hyponatremia E87.1 ; Allergic rhinitis, unspecified allergic rhinitis trigger, unspecified rhinitis seasonality J30.9 and Osteoporosis M81.0 [place] [id number] [place] [address] 14346- 5357 Mar, [place] [address] 53893- 1932 Mar, [place] [id number] [place] [address] 42300- 1032 Mar, Hyponatremia E87.1 [place] [address] 71157- 6740 Feb, Essential hypertension I10 ; Hypothyroidism, unspecified [...] Concern about skin disease without diagnosis Z71.1 [facility] [id number] [place] [address] 66128- 8683 Feb, [facility] [address] 17746- 1051 Feb, Other nonspecific abnormal finding of lung field R91.8 [place] [address] 63404- 4290 Dec, [facility] [id number] [place] [address] 81674- 5948 Dec, [facility] [id number] [place] [address] 96132- 9639 Nov, [facility] [id number] [place] [address] 54842- 9005 Nov, [facility] [id number] [place] [address] 89147- 6028 Oct, [facility] [id number] [place] [address] 77739- 5179 Oct, [facility] [id number] [place] [address] 81424- 4001 Oct, [facility] [id number] [place] [address] 90398- 1287 16 Aug, 2015 Chronic obstructive pulmonary disease, unspecified COPD type J44.9 [facility] [id number] [place] [address] 55871- 5657 14 Aug, 2015 [facility] [id number] [place] [address] 91212- 6809 10 Aug, 2015 Rectal bleeding K62.5 and GERD (gastroesophageal reflux disease) K21.9 [facility] [id number] [place] [address] 93806- 2975 Jul, [facility] [address] 80752- 4984 Jul, 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 [facility] [id number] [place] [address] 12588- 6470 Jun, [facility] [address] 92572- 6533 Jun, [facility] [address] 36341- 6037 23 May, 2015 Adrenal mass 255.9 and Abnormal dexamethasone suppression test 794.6 [facility] [id number] [place] [address] 33462- 2209 May, Adrenal mass 255.9 [facility] [address] 21128- 9086 May, [facility] [id number] [place] [address] 95288- 9330 18 May, 2015 Pneumonia 486 and COPD (chronic obstructive pulmonary disease) 496 [facility] [id number] [place] [address] 95006- 2881 17 May, 2015 [facility] [id number] [place] [address] 02104- 8757 14 May, 2015 [facility] [id number] [place] [address] 97275- 2718 11 May, 2015 [facility] [id number] [place] [address] 04970- 1691 10 May, 2015 [facility] [id number] [place] [address] 78120- 4230 09 May, 2015 [facility] [id number] [place] [address] 70495- 5689 08 May, 2015 [facility] [address] [place] [address]- 9295 May, Adrenal mass 255.9 [facility] [id number] [place] [address] 14154- 4014 Apr, Adrenal mass 255.9 ; Hypothyroidism 244.9 ; Chronic sore throat 472.1 ; Atrial fibrillation 427.31 ; Hypertension 401.9 ; Generalized anxiety disorder 300.02 ; Chronic pain 338.29 and COPD (chronic obstructive pulmonary disease) 496 [facility] [id number] [place] [address] 44588- 1110 Apr, [facility] [id number] [place] [address] 45575- 0524 Apr, [facility] [id number] [place] [address] 84204- 0231 Mar, [facility] [id number] [place] [address] 31989- 7706 Mar, Adrenal mass 255.9 [facility] [id number] [place] [address] 55697- 8216 Mar, [facility] [id number] [place] [address] 04807- 9533 Mar, Chronic sore throat 472.1 and Adrenal mass 255.9 [facility] [id number] [place] [address] 36427- 1673 Mar, [facility] [id number] [place] [address] 19253- 2573 Feb, [facility] [id number] [place] [address] 65891- 4528 Feb, [facility] [id number] [place] [address] 26974- 8385 Feb, [facility] [id number] [place] [address] 55196- 0011 Feb, [facility] [id number] [place] [address] 12822- 4526 Feb, [facility] [id number], [place] [address]- 7663 Feb, [facility] [id number] [place] [address] 62039- 8596 Feb, [facility] [address], [place] [address]- 2977 Feb, [facility] [id number] [place] [address] 27626- 0307 Feb, [facility] [address] [place] [address] 48312- 3243 January, Adrenal mass 255.9 ; Hypothyroidism 244.9 ; Chronic sore throat 472.1 ; Atrial fibrillation 427.31 ; Hypertension 401.9 ; Generalized anxiety disorder 300.02 ; Chronic pain 338.29 and COPD (chronic obstructive pulmonary disease) 496 [facility] [address] [place] [address] 74299- 4398 January, [facility] [address], [place] [address]- 7885 January, [facility] [id number] [place] [address] 90721- 6226 January, Sinusitis 473.9 [facility] [address], [place] [address]- 9431 January, [facility] [address], [place] [address]- 6481 January, [facility] [address], [place] [address]- 9421 Dec, [facility] [address], [place] [address]- 9076 Dec, [facility] [id number], [place] [address]- 9138 Nov, [facility] [id number] [place] [address] [place] [address]- 7808 Nov, 2014 [facility] [place] [facility] [address] [id number] [place] [address]- 1371 10 Nov, 2014 [facility] [place] [facility] [address] [id number] [place] [address]- 9415 10 Nov, 2014 [facility] [place] [facility] [address] [id number] [place] [address]- 3067 Oct, 2014 [facility] [place] [facility] [address] [id number] [place] [address]- 0581 Oct, 2014 [facility] [place] [facility] [address] [id number] [place] [address]- 8153 Oct, 2014 [facility] [place] [facility] [address] [id number] [place] [address]- 2419 Oct, 2014 [facility] [place] [facility] [address] [facility] [id number] [place] [address]- 5433 Oct, 2014 [facility] [place] [facility] [address] [id number] [place] [address]- 0000 Oct, 2014 [facility] [place] [facility] [id number] [address]- 5749 Oct, 2014 [facility] [place] [facility] [address] [facility] [id number] [place] [address]- 6386 Oct, 2014 [facility] [place] [facility] [address] [facility] [id number] [place] [address]- 2404 Oct, 2014 [facility] [place] [facility] [address] [id number] [place] [address]- 2548 Oct, 2014 [facility] [place] [facility] [address] [facility] [id number] [place] [address]- 4306 17 Oct, 2014 [facility] [place] [facility] [address] [facility] [id number] [address]- 3570 17 Oct, 2014 [facility] [place] [facility] [address] [facility] [id number], [place] [address]- 2740 Oct, [facility] [id number] [address]- 4749 Oct, [facility] [address] [address]- 2836 Oct, [facility] [address] [address]- 2549 Oct, [facility] [address] [address]- 0765 Oct, [facility] [address] [address]- 2558 Oct, [facility] [address] 6252 Sep, [facility] [id number] [address]- 9023 Sep, [facility] [id number], [place] [address]- 6281 May, IMMUNIZATIONS No Known Immunizations SOCIAL HISTORY Never Assessed REASON FOR VISIT Lab orders PLAN OF CARE VITAL SIGNS MEDICATIONS [...]
--- OUTSIDE RECORDS SUMMARY | 2018-06-29 09:13 | XMS REPORT ---
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 Active 6034749845618610 Problem Chronic pain syndrome G89.4 Active 249477021 Problem Anxiety F41.9 Active 87244200 Problem T12 compression fracture S22.080A Active 824802800 Problem Allergic rhinitis, unspecified allergic rhinitis trigger, unspecified rhinitis seasonality J30.9 Active 07038731 Problem Osteoporosis M81.0 Active 00313277 Problem Drug induced constipation K59.03 Active 214383458732372 Problem Primary insomnia F51.01 Active 9225258 Problem Other nonspecific abnormal finding of lung field R91.8 Resolved 385760100 Problem Irritable bowel syndrome without diarrhea K58.9 Active 56312908 Problem 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 Active 616819840 Problem Tobacco use Z72.0 Active 082814202 Problem Chronic obstructive pulmonary disease, unspecified COPD type J44.9 Active 25843453 Problem Nocturnal hypoxia G47.34 Active 415279044 Problem Persistent atrial fibrillation I48.1 Active 719951471 Problem Essential hypertension I10 Active 98885077 Problem Hypothyroidism, unspecified hypothyroidism type E03.9 Active 17729948 Problem 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 Active 59120806 ALLERGIES No Information ENCOUNTERS Encounter Location Date Diagnosis [facility] [address] [facility] [id number] [address] Mar, [facility] [id number], [place] [address] 4969 Feb, [facility] [address], [place] [address] 24[address] Feb, [facility] [address], [place] [address] 2064 Feb, [facility] [address], [place] [address] 3[address] Feb, [place] [id number] [place] [address] 84017- 7166 Feb, [facility] [id number] [place] [address] 13746- 4446 Feb, Other chronic pain G89.29 ; Rectal bleeding K62.5 and Chronic pain syndrome G89.4 [place] [address], [place] [address] 6583 15 Feb, 2018 [place] [id number] [place] [address] 15668- 4344 Feb, [place] [id number] [place] [address] 40844- 8644 Feb, Other chronic pain G89.29 ; Essential hypertension I10 ; Osteoporosis M81.0 ; Drug induced constipation K59.03 ; Chronic obstructive pulmonary disease, unspecified COPD type J44.9 ; Hypothyroidism, unspecified hypothyroidism type E03.9 ; 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 ; Right ear pain H92.01 and Sore throat J02.9 [place] [address], [place] [address] 96[address] January, [facility] [address], [place] [address] January, Low back pain M54.5 ; Other chronic pain G89.29 ; Pain in thoracic spine M54.6 and Neck pain M54.2 [place] [address], [place] [address] 4539 Dec, Low back pain M54.5 ; Other chronic pain G89.29 ; Pain in thoracic spine M54.6 and Neck pain M54.2 [place] [address] 6[address]45- 8956 Dec, 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 and Chronic obstructive pulmonary disease, unspecified COPD type J44.9 [place] [address] 54101- 8538 Dec, [place] [address] 91384- 1398 Dec, Hypothyroidism, unspecified hypothyroidism type E03.9 [place] [address] 68282- 5590 Oct, Essential hypertension I10 [place] [address] 02650- 3678 Oct, [place] [address] 52633- 4422 Sep, [place] [address] 68216- 7273 Sep, 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 [place] [address] 34062- 1040 Aug, Drug induced constipation K59.03 [place] [address] 24744- 8392 Aug, [place] [address] 02612- 9301 Jul, Other chronic pain G89.29 [place] [address] 22439- 5564 09 Jul, 2017 [place] [address] 14112- 6087 08 Jul, 2017 Well woman exam (no gynecological exam) Z00.00 ; Encounter for immunization Z23 ; Tobacco use Z72.0 and 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 [facility] [id number] [place] [address] 75622- 3430 Jul, [facility] [id number] [place] [address] 63718- 3409 Jul, Drug induced constipation K59.03 [facility] [id number] [place] [address] 29560- 0504 Jun, Chronic obstructive pulmonary disease, unspecified COPD type J44.9 ; Tobacco use Z72.0 ; Hypothyroidism, unspecified hypothyroidism type E03.9 ; Other chronic pain G89.29 ; Drug induced constipation K59.03 and COPD exacerbation J44.1 [facility] [id number] [place] [address] 75646- 9834 Jun, [facility] [id number] [place] [address] 38657- 6992 Jun, [facility] [id number] [place] [address] 06334- 6204 Jun, Osteoporosis M81.0 [facility] [id number] [place] [address] 90090- 8634 Jun, [facility] [id number] [place] [address] 18669- 8810 Jun, Other chronic pain G89.29 [facility] [id number] [place] [address] 50113- 9517 Jun, Other chronic pain G89.29 [facility] [id number] [place] [address] 09750- 1781 Jun, Hypothyroidism, unspecified hypothyroidism type E03.9 [facility] [id number] [place] [address] 71752- 3973 Jun, [facility] [id number] [place] [address] 66005- 9721 May, [facility] [id number] [place] [address] 95800- 9886 May, COPD exacerbation J44.1 ; Pain of left lower extremity M79.605 ; Burn T30.0 ; Fatigue, unspecified type R53.83 ; Anemia, unspecified type D64.9 ; Adverse effect of other opioids, initial encounter T40.2X5A and Drug induced constipation K59.03 [facility] [id number] [place] [address] 79971- 5754 May, [facility] [id number] [place] [address] 47087- 7074 May, Burn T30.0 [facility] [id number] [place] [address] 87354- 6453 18 May, 2017 Other chronic pain G89.29 and Burn T30.0 [facility] [id number] [place] [address] 61145- 9023 14 May, 2017 Other chronic pain G89.29 [facility] [id number] [place] [address] 68519- 0133 Apr, [facility] [id number] [place] [address] 47396- 5806 Apr, [facility] [id number] [place] [address] 91344- 4266 Apr, [facility] [id number] [place] [address] 25879- 0470 Apr, [facility] [id number] [place] [address] 03796- 8808 Apr, Other chronic pain G89.29 [facility] [id number] [place] [address] 98069- 9126 Apr, Fatigue, unspecified type R53.83 ; Hypothyroidism, unspecified hypothyroidism type E03.9 ; Other chronic pain G89.29 ; Essential hypertension I10 ; Persistent atrial fibrillation I48.1 ; Chronic obstructive pulmonary disease, unspecified COPD type J44.9 ; Nocturnal hypoxia G47.34 ; Irritable bowel syndrome without diarrhea K58.9 ; Hyponatremia E87.1 ; Osteoporosis M81.0 and Primary insomnia F51.01 [place] [address] 60240- 7978 14 Feb, 2017 [place] [address] 24171- 8472 January, [place] [address] 70869- 5468 Oct, Essential hypertension I10 [place] [address] 67744- 7042 Sep, Shortness of breath R06.02 ; COPD with exacerbation J44.1 and Weakness R53.[address] 70595- 5233 Sep, Drug-induced constipation K59.03 and Allergic rhinitis, unspecified allergic rhinitis trigger, unspecified rhinitis seasonality J30.9 [place] [address] 63985- 9482 Sep, [place] [address] 46872- 6721 Sep, [place] [address] 44071- 1649 Sep, [place] [address] 41130- 2813 Jul, [address] 25709- 4900 Jul, Other chronic pain G89.29 ; Hematuria R31.9 ; Screening for breast cancer Z12.39 ; Anxiety F41.9 ; Primary insomnia F51.01 ; Drug-induced constipation K59.03 and Encounter for immunization Z23 [place] [address] 59781- 2356 Jul, 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 00377- 1949 Jun, 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 and Hyponatremia E87.1 [place] [id number] [place] [address] 57541- 2853 Jun, 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 and Hyponatremia E87.1 [place] [id number] [place] [address] 41283- 1324 May, Hyponatremia E87.1 [place] [address] 66466- 3325 May, Essential hypertension I10 ; Tobacco use Z72.0 ; Hyponatremia E87.1 ; Allergic rhinitis, unspecified allergic rhinitis trigger, unspecified rhinitis seasonality J30.9 and Osteoporosis M81.0 [place] [id number] [place] [address] 89147- 4652 Mar, [address] 22648- 4316 Mar, [place] [id number] [place] [address] 39335- 0208 Mar, Hyponatremia E87.1 [place] [id number] [place] [address] 15914- 2538 Feb, Essential hypertension I10 ; Hypothyroidism, unspecified [...] Concern about skin disease without diagnosis Z71.1 [place] [address] [place] [address] 72547- 2419 Feb, [place] [id number] [place] [address] 72967- 5769 Feb, Other nonspecific abnormal finding of lung field R91.8 [facility] [id number] [place] [address] 57549- 3088 Dec, [facility] [id number] [place] [address] 61807- 9130 Dec, [facility] [id number] [place] [address] 07667- 0201 Nov, [facility] [id number] [place] [address] 08743- 0058 Nov, [facility] [id number] [place] [address] 61986- 1941 Oct, [facility] [id number] [place] [address] 41716- 9909 Oct, [facility] [address] 97993- 7014 Oct, [facility] [id number] [place] [address] 86987- 4197 Aug, Chronic obstructive pulmonary disease, unspecified COPD type J44.9 [facility] [id number] [place] [address] 37025- 6692 Aug, [facility] [id number] [place] [address] 45105- 7382 Aug, Rectal bleeding K62.5 and GERD (gastroesophageal reflux disease) K21.9 [facility] [id number] [place] [address] 87541- 1866 Jul, [facility] [id number] [place] [address] 50816- 5270 Jul, 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 [facility] [id number] [place] [address] 07115- 7229 Jun, [facility] [id number] [place] [address] 01393- 7328 Jun, [facility] [id number] [place] [address] 52802- 9406 23 May, 2015 Adrenal mass 255.9 and Abnormal dexamethasone suppression test 794.6 [facility] [id number] [place] [address] 25128- 4487 May, Adrenal mass 255.9 [facility] [id number] [place] [address] 88719- 3087 May, [facility] [address] 47326- 4714 18 May, 2015 Pneumonia 486 and COPD (chronic obstructive pulmonary disease) 496 [facility] [address] 40972- 4090 17 May, 2015 [facility] [id number] [place] [address] 55304- 2074 14 May, 2015 [facility] [address] 46317- 6997 11 May, 2015 [facility] [id number] [place] [address] 01912- 1661 10 May, 2015 [facility] [id number] [place] [address] 94644- 3259 09 May, 2015 [facility] [id number] [place] [address] 61369- 3548 08 May, 2015 [facility] [id number] [place] [address] 15616- 4399 04 May, 2015 Adrenal mass 255.9 [facility] [id number] [place] [address] 01383- 9383 Apr, Adrenal mass 255.9 ; Hypothyroidism 244.9 ; Chronic sore throat 472.1 ; Atrial fibrillation 427.31 ; Hypertension 401.9 ; Generalized anxiety disorder 300.02 ; Chronic pain 338.29 and COPD (chronic obstructive pulmonary disease) 496 [facility] [id number] [place] [address] 49007- 1652 Apr, [facility] [address], [place] [address]- 6696 Apr, [facility] [address] [place] [address] 56847- 3476 Mar, [facility] [id number], [place] [address]- 0621 Mar, Adrenal mass 255.9 [facility] [id number] [place] [address] 34190- 2993 Mar, [facility] [id number] [place] [address] 51940- 0387 Mar, Chronic sore throat 472.1 and Adrenal mass 255.9 [facility] [address] [place] [address] 97709- 2238 Mar, [facility] [id number] [place] [address] 63055- 5308 Feb, [facility] [address] [place] [address] 66698- 8795 Feb, [facility] [id number] [place] [address] 93392- 9728 Feb, [facility] [address], [place] [address]- 9742 Feb, [facility] [address], [place] [address]- 3388 Feb, [facility] [address], [place] [address]- 1534 Feb, [facility] [place] [facility] [address] [place] [address] 35593- 0385 Feb, [facility] [address], [place] [address]- 7310 Feb, [facility] [address], [place] [address]- 5023 Feb, [facility] [id number], [place] [address]- 7988 January, Adrenal mass 255.9 ; Hypothyroidism 244.9 ; Chronic sore throat 472.1 ; Atrial fibrillation 427.31 ; Hypertension 401.9 ; Generalized anxiety disorder 300.02 ; Chronic pain 338.29 and COPD (chronic obstructive pulmonary disease) 496 [facility] [id number] [place] [address] 89863- 6565 January, [facility] [id number] [place] [address] 35689- 3446 January, [facility] [id number] [place] [address] 45957- 4227 January, Sinusitis 473.9 [facility] [id number] [place] [address] 392575- 5726 January, [facility] [id number] [place] [address] 64482- 8836 January, [facility] [address], [place] [address]- 3319 Dec, [facility] [id number] [address]- 2743 Dec, [facility] [address], [place] [address]- 4612 Nov, [facility] [address], [place] [address]- 7716 Nov, [facility] [address], [place] [address]- 0679 Nov, [facility] [id number] [address]- 6776 Nov, [facility] [address], [place] [address]- 0006 Oct, [facility] [id number] [address]- 4650 Oct, 2014 [facility] [place] [facility] [address] [id number] [place] [address]- 6592 Oct, 2014 [facility] [place] [facility] [address] [facility] [id number] [place] [address]- 2276 Oct, 2014 [facility] [place] [facility] [address] [facility] [id number] [place] [address]- 1793 Oct, 2014 [facility] [place] [facility] [address] [facility] [id number] [place] [address]- 5721 Oct, 2014 [facility] [place] [facility] [address] [facility] [id number] [place] [address]- 1586 Oct, 2014 [facility] [place] [facility] [address] [facility] [id number] [place] [address]- 6818 Oct, 2014 [facility] [place] [facility] [id number] [place] [address]- 8788 Oct, 2014 [facility] [place] [facility] [address] [facility] [id number] [place] [address]- 3574 Oct, 2014 [facility] [place] [facility] [id number] [place] [address]- 2957 Oct, 2014 [facility] [place] [facility] [address] [facility] [id number] [place] [address]- 6017 Oct, 2014 [facility] [place] [facility] [address] [facility] [id number] [place] [address]- 2540 Oct, 2014 [facility] [place] [facility] [address] [facility] [id number] [place] [address]- 2542 Oct, 2014 [facility] [place] [facility] [address] [facility] [id number] [place] [address]- 7306 Oct, 2014 [facility] [place] [facility] [address] [facility] [id number], [place] [address]- 0487 Oct, 2014 [facility] [place] [facility] [address] [facility] [id number], [place] [address]- 3468 Oct, [facility] [address] [facility] [id number] [place] [address]- 2546 Oct, [facility] [address] [facility] [id number], [place] [address]- 2546 Sep, [facility] [address] [facility] [id number] [place] [address]- 2546 Sep, [facility] [address] [facility] [id number], [place] [address]- 2546 May, IMMUNIZATIONS No Known Immunizations SOCIAL HISTORY Never Assessed REASON FOR VISIT Refill request PLAN OF CARE VITAL SIGNS MEDICATIONS Medication Instructions Dosage Frequency Start Date End Date Duration Status Omeprazole 20 mg Orally Once a day 1 capsule 24h May, 30 days Active Levothyroxine Sodium 75 mcg Orally Once a day 1 tablet 24h 30 days Active Albuterol Sulfate (2.5 MG/3ML) 0.083% 3 ml as needed every 4 hrs Inhalation Active RESULTS No Results PROCEDURES No Known [...]
--- OUTSIDE RECORDS SUMMARY | 2018-06-29 09:29 | XMS REPORT | Continuity of Care Document ---
Author Author [facility] Address Unknown Phone Unavailable Allergies Active Description Code Type Severity Reaction Onset Reported/Identified Relationship to Patient Clinical Status Yes hydrocodone [id number] Drug Allergy Unknown N/A 11/17/2015 Yes warfarin [id number] Drug Allergy Moderate BLISTERS 02/23/2018 Yes hydrocodone [id number] Drug Allergy Mild N/A 02/23/2018 Medications There is no data. Problems Date Dx Coded Attending Type Code Diagnosis Diagnosed By 04/10/2008 OBINNA PRASAD MD 244.9 HYPOTHYROIDISM 04/10/2008 CLARISSE GARCIA APRN 244.9 HYPOTHYROIDISM 06/13/2008 OBINNA PRASAD MD 338.4 CHRONIC PAIN SYNDROME 06/13/2008 CLARISSE GARCIA APRN 338.4 CHRONIC PAIN SYNDROME 08/14/2008 OBINNA PRASAD MD 780.79 MALAISE AND FATIGUE 08/14/2008 OBINNA PRASAD MD 788.41 URINARY FREQUENCY 08/14/2008 CLARISSE GARCIA APRN 780.79 MALAISE AND FATIGUE 08/14/2008 CLARISSE GARCIA APRN 788.41 URINARY FREQUENCY 09/25/2008 OBINNA PRASAD MD 724.2 lower back pain 09/25/2008 CLARISSE GARCIA APRN 724.2 lower back pain 11/12/2008 OBINNA PRASAD MD V72.31 ROUTINE PELVIC EXAM WITH CERVICAL PAP SMEAR 11/12/2008 CLARISSE GARCIA APRN V72.31 ROUTINE PELVIC EXAM WITH CERVICAL PAP SMEAR 12/31/2008 OBINNA PRASAD MD 276.1 PSEUDOHYPONATREMIA 12/31/2008 OBINNA PRASAD MD 401.1 ESSENTIAL HYPERTENSION BENIGN 12/31/2008 OBINNA PRASAD MD 599.70 blood in urine 12/31/2008 CLARISSE GARCIA APRN 276.1 PSEUDOHYPONATREMIA 12/31/2008 JOSE DATA MANAGEMENT SPECIALIST, CLARISSE R 401.1 ESSENTIAL HYPERTENSION BENIGN 12/31/2008 CLARISSE GARCIA APRN R 599.70 blood in urine 03/12/2009 OBINNA PRASAD MD N 729.82 muscle cramps in the thigh (upper leg) 03/12/2009 CLARISSE GARCIA APRN 729.82 muscle cramps in the thigh (upper leg) 05/09/2009 OBINNA PRASAD MD N NODX NO DIAGNOSIS 05/09/2009 CLARISSE GARCIA APRN NODX NO DIAGNOSIS 05/28/2009 OBINNA PRASAD MD N 492.8 EMPHYSEMA 05/28/2009 OBINNA PRASAD MD N 724.5 BACKACHE 05/28/2009 OBINNA PRASAD MD N 786.05 shortness of breath 05/28/2009 CLARISSE GARCIA APRN R 492.8 EMPHYSEMA 05/28/2009 CLARISSE GARCIA APRN 724.5 BACKACHE 05/28/2009 CLARISSE GARCIA APRN R 786.05 shortness of breath 06/17/2010 Ot 276.1 06/17/2010 Ot 276.50 06/17/2010 Ot 401.9 06/17/2010 Ot 416.8 06/17/2010 Ot 427.31 06/17/2010 Ot 433.30 06/17/2010 Ot 440.1 06/17/2010 Ot 443.9 06/17/2010 Ot 496 06/17/2010 Ot 530.81 06/17/2010 Ot 564.09 06/17/2010 Ot 724.2 06/17/2010 Ot 729.81 06/17/2010 Ot 780.79 06/17/2010 Ot 783.21 06/17/2010 Ot 786.59 06/17/2010 Ot 789.00 06/17/2010 Ot V58.63 06/17/2010 Ot V58.69 07/07/2010 Ot 253.6 07/07/2010 Ot 276.8 07/07/2010 Ot 305.1 07/07/2010 Ot 338.4 07/07/2010 Ot 414.01 07/07/2010 Ot 424.0 07/07/2010 Ot 427.31 07/07/2010 Ot 428.0 07/07/2010 Ot 428.32 07/07/2010 Ot 440.1 07/07/2010 Ot 496 07/07/2010 Ot 530.81 07/07/2010 Ot 564.09 07/07/2010 Ot 729.81 07/07/2010 Ot 780.79 07/07/2010 Ot V58.63 07/07/2010 Ot V58.66 07/07/2010 Ot V58.69 08/18/2010 Ot 275.2 08/18/2010 Ot 401.9 08/18/2010 Ot 427.31 08/18/2010 Ot 433.10 08/18/2010 Ot V58.61 09/18/2010 Ot 530.11 09/18/2010 Ot 535.40 09/18/2010 Ot 553.3 05/08/2011 Ot 414.01 CORONARY ATHEROSCLEROSIS OF [place] CORON 05/08/2011 Ot 427.31 ATRIAL FIBRILLATION 05/08/2011 Ot 558.9 NONINF GASTROENTERIT NEC 05/08/2011 Ot 724.2 LUMBAGO 05/13/2011 Ot 038.9 SEPTICEMIA NOS 05/13/2011 Ot 244.9 HYPOTHYROIDISM NOS 05/13/2011 Ot 253.6 NEUROHYPOPHYSIS DIS NEC 05/13/2011 Ot 293.0 DELIRIUM DUE TO CONDITIONS CLASSIFIED EL 05/13/2011 Ot 305.1 TOBACCO USE DISORDER 05/13/2011 Ot 338.29 OTHER CHRONIC PAIN 05/13/2011 Ot 416.8 CHR PULMON HEART DIS NEC 05/13/2011 Ot 427.31 ATRIAL FIBRILLATION 05/13/2011 Ot 558.9 NONINF GASTROENTERIT NEC 05/13/2011 Ot 573.3 HEPATITIS NOS 05/13/2011 Ot 593.9 RENAL URETERAL DIS NOS 05/13/2011 Ot 599.0 URIN TRACT INFECTION NOS 05/13/2011 Ot 719.49 JOINT PAIN- MULT JTS 05/13/2011 Ot 724.5 BACKACHE NOS 05/13/2011 Ot 995.91 SEPSIS 05/13/2011 Ot V12.59 HX- CIRCULATORY SYST DIS,NEC 05/13/2011 Ot V12.71 PERSONAL HISTORY OF PEPTIC ULCER DISEASE 04/05/2012 Ot 721.3 LUMBOSACRAL SPONDYLOSIS 04/05/2012 Ot 724.2 LUMBAGO 04/05/2012 Ot 737.30 IDIOPATHIC SCOLIOSIS 04/05/2012 Ot 846.0 SPRAIN LUMBOSACRAL 04/05/2012 Ot 922.31 BACK CONTUSION 04/05/2012 Ot E000.8 OTHER EXTERNAL CAUSE STATUS 04/05/2012 Ot E849.0 ACCIDENT IN HOME 04/05/2012 Ot E888.9 FALL NOS 07/11/2013 LELE HUGHES MD Ot 723.1 CERVICALGIA 07/11/2013 LELE HUGHES MD Ot V57.1 PHYSICAL THERAPY NEC 01/28/2014 LELE HUGHES MD Ot 338.4 CHRONIC PAIN SYNDROME 01/28/2014 LELE HUGHES MD Ot 721.3 LUMBOSACRAL SPONDYLOSIS 01/28/2014 LELE HUGHES MD Ot 722.4 CERVICAL DISC DEGEN 01/28/2014 LELE HUGHES MD, Ot 722.52 LUMB/LUMBOSAC DISC DEGEN 01/28/2014 LELE HUGHES MD, Ot 726.5 ENTHESOPATHY OF HIP 01/28/2014 LELE HUGHES MD Ot 729.1 MYALGIA AND MYOSITIS NOS 01/28/2014 LELE HUGHES MD, Ot V58.69 OTH MED,LT,CURRENT USE 05/17/2014 LELE HUGHES MD Ot 338.4 CHRONIC PAIN SYNDROME 05/17/2014 LELE HUGHES MD Ot 721.3 LUMBOSACRAL SPONDYLOSIS 05/17/2014 LELE HUGHES MD, Ot 722.52 LUMB/LUMBOSAC DISC DEGEN 05/17/2014 LELE HUGHES MD Ot 726.5 ENTHESOPATHY OF HIP 05/17/2014 LELE HUGHES MD Ot 729.1 MYALGIA AND MYOSITIS NOS 05/17/2014 LELE HUGHES MD Ot V58.61 ANTICOAGULANTS,LT,CURRENT USE 05/17/2014 LELE HUGHES MD Ot V58.69 OTH MED,LT,CURRENT USE 05/22/2014 RAYNA FARAH MD Ot 244.9 HYPOTHYROIDISM NOS 05/22/2014 RAYNA FARAH MD Ot 414.01 CORONARY ATHEROSCLEROSIS OF [place] CORON 05/22/2014 RAYNA FARAH MD Ot 455.0 INT HEMORRHOID W/O COMPL 05/22/2014 RAYNA FARAH MD Ot 455.3 EXT HEMORRHOID W/O COMPL 05/22/2014 RAYNA FARAH MD Ot 530.11 REFLUX ESOPHAGITIS 05/22/2014 RAYNA FARAH MD Ot 535.50 UNSP GASTRITIS GASTRODUODENITIS W/O ME 05/22/2014 GAGAN LAU, RAYNA Ot 553.3 DIAPHRAGMATIC HERNIA 05/22/2014 RAYNA FARAH MD Ot 787.99 OTHER GI SYSTEM SYMPTOMS 08/18/2014 CORNELIO BENEDICT MD Ot 276.1 HYPOSMOLALITY 08/18/2014 CORNELIO BENEDICT MD Ot 305.1 TOBACCO USE DISORDER 08/18/2014 CORNELIO BENEDICT MD A Ot 427.31 ATRIAL FIBRILLATION 08/18/2014 CORNELIO BENEDICT MD A Ot 466.0 ACUTE BRONCHITIS 08/18/2014 CORNELIO BENEDICT MD A Ot 724.5 BACKACHE NOS 08/18/2014 CORNELIO BENEDICT MD Ot 786.2 COUGH 08/20/2014 SHAYY PEOPLES MD Ot 255.9 08/20/2014 SHAYY PEOPLES MD Ot 789.30 10/09/2014 OBINNA PRASAD MD N 921.0 BLACK EYE NOT OTHERWISE SPECIFIED 10/09/2014 OBINNA PRASAD MD N 959.01 OTHER AND UNSPECIFIED INJURY TO HEAD 10/09/2014 JOSE DATA MANAGEMENT SPECIALIST, CLARISSE R 921.0 BLACK EYE NOT OTHERWISE SPECIFIED 10/09/2014 JOSE DATA MANAGEMENT SPECIALIST, CLARISSE R 959.01 OTHER AND UNSPECIFIED INJURY TO HEAD 10/10/2014 LELE HUGHES MD Ot 338.4 10/10/2014 LELE HUGHES MD Ot 721.3 10/10/2014 LELE HUGHES MD Ot 722.52 10/10/2014 LELE HUGHES MD Ot 729.1 10/10/2014 LELE HUGHES MD Ot V58.69 10/11/2014 SHAYY PEOPLES MD Ot 255.9 10/11/2014 SHAYY PEOPLES MD Ot 789.30 10/21/2014 LELE HUGHES MD Ot 338.4 10/21/2014 LELE HUGHES MD Ot 721.3 10/21/2014 LELE HUGHES MD Ot 722.52 10/21/2014 LELE HUGHES MD Ot 729.1 10/21/2014 LELE HUGHES MD Ot V58.69 10/25/2014 LELE HUGHES MD Ot 338.4 CHRONIC PAIN SYNDROME 10/25/2014 LELE HUGHES MD Ot 721.3 LUMBOSACRAL SPONDYLOSIS 10/25/2014 LELE HUGHES MD Ot 722.52 LUMB/LUMBOSAC DISC DEGEN 10/25/2014 LELE HUGHES MD Ot 729.1 MYALGIA AND MYOSITIS NOS 10/25/2014 LELE HUGHES MD Ot V58.69 OTH MED,LT,CURRENT USE 11/06/2014 CLARISSE GARCIA APRN R 305.1 TOBACCO ABUSE 11/06/2014 CLARISSE GARCIA APRN 462 ACUTE PHARYNGITIS 11/06/2014 CLARISSE GARCIA APRN R 535.50 GASTRITIS UNSPEC 11/06/2014 CLARISSE GARCIA APRN 787.20 DYSPHAGIA UNSPECIFIED 12/31/2014 Ot V15.89 12/31/2014 Ot V67.09 12/31/2014 Ot 428.0 12/31/2014 Ot 433.10 12/31/2014 Ot V58.69 12/31/2014 Ot 397.0 12/31/2014 Ot 416.8 12/31/2014 Ot 782.3 12/31/2014 Ot 786.05 12/31/2014 Ot 786.09 12/31/2014 Ot 427.31 12/31/2014 Ot 785.1 12/31/2014 Ot 458.9 12/31/2014 Ot 275.2 12/31/2014 Ot 401.9 12/31/2014 Ot 433.10 12/31/2014 Ot 276.9 12/31/2014 Ot 294.10 12/31/2014 Ot 298.9 12/31/2014 Ot 331.0 12/31/2014 Ot 275.2 12/31/2014 Ot 780.97 12/31/2014 Ot 791.9 12/31/2014 Ot 275.2 12/31/2014 Ot 244.9 12/31/2014 Ot 276.9 12/31/2014 Ot 244.9 12/31/2014 Ot 401.9 12/31/2014 Ot 414.01 12/31/2014 Ot 780.79 12/31/2014 Ot V58.69 12/31/2014 Ot 275.2 12/31/2014 Ot 253.6 12/31/2014 Ot 611.89 12/31/2014 Ot 733.00 12/31/2014 Ot V15.89 12/31/2014 Ot V82.81 12/31/2014 Ot 276.1 12/31/2014 Ot 780.79 12/31/2014 Ot 275.2 12/31/2014 Ot 276.1 12/31/2014 Ot 401.9 12/31/2014 Ot 276.1 12/31/2014 Ot 425.4 12/31/2014 Ot 427.31 12/31/2014 Ot 428.0 12/31/2014 Ot 496 12/31/2014 Ot 511.9 12/31/2014 Ot 518.89 12/31/2014 Ot 793.1 12/31/2014 Ot 511.9 12/31/2014 Ot 511.9 12/31/2014 Ot 429.3 12/31/2014 Ot 511.9 12/31/2014 Ot 518.0 12/31/2014 Ot 428.0 12/31/2014 Ot 414.00 12/31/2014 Ot 511.9 12/31/2014 Ot V58.69 12/31/2014 Ot 276.1 12/31/2014 Ot 511.9 12/31/2014 Ot 276.1 12/31/2014 Ot 276.1 12/31/2014 Ot 791.9 12/31/2014 Ot 276.1 12/31/2014 Ot 275.2 12/31/2014 Ot 276.1 12/31/2014 Ot 276.9 12/31/2014 Ot 275.2 12/31/2014 Ot 276.1 12/31/2014 Ot 276.8 12/31/2014 Ot 733.00 12/31/2014 Ot 268.9 12/31/2014 Ot 733.00 12/31/2014 Ot 733.90 12/31/2014 Ot V76.12 12/31/2014 Ot 789.01 12/31/2014 Ot 401.9 12/31/2014 Ot 440.20 12/31/2014 Ot 587 12/31/2014 Ot 722.4 12/31/2014 Ot 959.19 12/31/2014 Ot E000.8 12/31/2014 Ot E849.0 12/31/2014 Ot E888.9 12/31/2014 Ot 253.6 12/31/2014 Ot 722.52 12/31/2014 Ot V54.17 12/31/2014 Ot 244.9 12/31/2014 Ot 253.6 12/31/2014 Ot 253.6 12/31/2014 Ot 305.1 12/31/2014 Ot 401.9 12/31/2014 Ot 428.0 12/31/2014 Ot 433.30 12/31/2014 Ot V76.12 12/31/2014 Ot 253.6 12/31/2014 Ot 305.1 12/31/2014 Ot 496 12/31/2014 Ot 786.05 12/31/2014 Ot 427.31 12/31/2014 Ot 780.79 12/31/2014 Ot 785.1 12/31/2014 Ot 786.50 12/31/2014 Ot 786.05 12/31/2014 Ot 786.2 12/31/2014 Ot 427.31 12/31/2014 Ot 780.79 12/31/2014 Ot 785.1 12/31/2014 Ot 786.59 12/31/2014 LELE HUGHES MD Ot 305.1 12/31/2014 LELE HUGHES MD Ot 403.90 12/31/2014 LELE HUGHES MD Ot 496 12/31/2014 LELE HUGHES MD Ot 585.9 12/31/2014 LELE HUGHES MD Ot 721.3 12/31/2014 LELE HUGHES MD Ot 722.4 12/31/2014 LELE HUGHES MD Ot 722.52 12/31/2014 LELE HUGHES MD Ot 729.1 12/31/2014 LELE HUGHES MD Ot 785.1 12/31/2014 LELE HUGHES MD Ot V58.69 12/31/2014 LELE HUGHES MD Ot 246.9 12/31/2014 LELE HUGHES MD Ot 300.00 12/31/2014 LELE HUGHES MD Ot 305.1 12/31/2014 LELE HUGHES MD Ot 477.9 12/31/2014 LELE HUGHES MD Ot 721.3 12/31/2014 LELE HUGHES MD Ot 722.4 12/31/2014 LELE HUGHES MD Ot 722.52 12/31/2014 LELE HUGHES MD Ot 729.1 12/31/2014 LELE HUGHES MD Ot V58.69 12/31/2014 LELE HUGHES MD Ot 721.3 12/31/2014 LELE HUGHES MD Ot 722.4 12/31/2014 LELE HUGHES MD Ot 722.52 12/31/2014 LELE HUGHES MD Ot 729.1 12/31/2014 LELE HUGHES MD Ot V58.69 12/31/2014 LELE HUGHES MD Ot 721.3 12/31/2014 LELE HUGHES MD Ot 722.4 12/31/2014 LELE HUGHES MD Ot 722.52 12/31/2014 LELE HUGHES MD Ot 724.6 12/31/2014 LELE HUGHES MD Ot 729.1 12/31/2014 LELE HUGHES MD Ot V58.69 12/31/2014 RICHELLE LAU, SHAYY Burnett Ot V76.12 12/31/2014 LELE HUGHES MD Ot 721.3 12/31/2014 LELE HUGHES MD Ot 722.4 12/31/2014 LELE HUGHES MD Ot 722.52 12/31/2014 LELE HUGHES MD Ot 724.6 12/31/2014 LELE HUGHES MD Ot 729.1 12/31/2014 LELE HUGHES MD Ot V58.69 12/31/2014 RICHELLE LAU, SHAYY Burnett Ot 253.6 12/31/2014 RICHELLE LAU, SHAYY Burnett Ot 305.1 12/31/2014 RICHELLE LAU, SHAYY L Ot 783.21 12/31/2014 GAGAN LAU, [facility] Ot V72.84 12/31/2014 RICHELLE LAU, SHAYY Burnett Ot 789.30 12/31/2014 RICHELLE LAU, SHAYY L Ot 255.9 12/31/2014 RICHELLE LAU, SHAYY L Ot 789.30 12/31/2014 LELE HUGHES MD Ot 338.4 12/31/2014 LELE HUGHES MD Ot 721.3 12/31/2014 LELE HUGHES MD Ot 722.52 12/31/2014 LELE HUGHES MD Ot 729.1 12/31/2014 LELE HUGHES MD Ot V58.69 12/31/2014 SHANICE LAU, OBINNA Corral Ot 921.0 12/31/2014 OBINNA PRASAD MD Ot 959.01 12/31/2014 OBINNA PRASAD MD Ot E000.8 12/31/2014 OBINNA PRASAD MD Ot E849.0 12/31/2014 OBINNA PRASAD MD Ot E917.3 01/17/2015 LELE HUGHES MD Ot 338.4 CHRONIC PAIN SYNDROME 01/17/2015 LELE HUGHES MD Ot 721.3 LUMBOSACRAL SPONDYLOSIS 01/17/2015 LELE HUGHES MD Ot 722.4 CERVICAL DISC DEGEN 01/17/2015 LELE HUGHES MD Ot 722.52 LUMB/LUMBOSAC DISC DEGEN 01/17/2015 LELE HUGHES MD Ot 729.1 MYALGIA AND MYOSITIS NOS 01/17/2015 LELE HUGHES MD Ot V58.69 OT MED,LT,CURRENT USE 01/31/2015 LELE HUGHES MD Ot 724.02 01/31/2015 LELE HUGHES MD Ot 733.13 02/24/2015 Ot V15.89 02/24/2015 Ot V67.09 02/24/2015 Ot 428.0 02/24/2015 Ot 433.10 02/24/2015 Ot V58.69 02/24/2015 Ot 397.0 02/24/2015 Ot 416.8 02/24/2015 Ot 782.3 02/24/2015 Ot 786.05 02/24/2015 Ot 786.09 02/24/2015 Ot 427.31 02/24/2015 Ot 785.1 02/24/2015 Ot 458.9 02/24/2015 Ot 275.2 02/24/2015 Ot 401.9 02/24/2015 Ot 433.10 02/24/2015 Ot 276.9 02/24/2015 Ot 294.10 02/24/2015 Ot 298.9 02/24/2015 Ot 331.0 02/24/2015 Ot 275.2 02/24/2015 Ot 780.97 02/24/2015 Ot 791.9 02/24/2015 Ot 275.2 02/24/2015 Ot 244.9 02/24/2015 Ot 276.9 02/24/2015 Ot 244.9 02/24/2015 Ot 401.9 02/24/2015 Ot 414.01 02/24/2015 Ot 780.79 02/24/2015 Ot V58.69 02/24/2015 Ot 275.2 02/24/2015 Ot 253.6 02/24/2015 Ot 611.89 02/24/2015 Ot 733.00 02/24/2015 Ot V15.89 02/24/2015 Ot V82.81 02/24/2015 Ot 276.1 02/24/2015 Ot 780.79 02/24/2015 Ot 275.2 02/24/2015 Ot 276.1 02/24/2015 Ot 401.9 02/24/2015 Ot 276.1 02/24/2015 Ot 425.4 02/24/2015 Ot 427.31 02/24/2015 Ot 428.0 02/24/2015 Ot 496 02/24/2015 Ot 511.9 02/24/2015 Ot 518.89 02/24/2015 Ot 793.1 02/24/2015 Ot 511.9 02/24/2015 Ot 511.9 02/24/2015 Ot 429.3 02/24/2015 Ot 511.9 02/24/2015 Ot 518.0 02/24/2015 Ot 428.0 02/24/2015 Ot 414.00 02/24/2015 Ot 511.9 02/24/2015 Ot V58.69 02/24/2015 Ot 276.1 02/24/2015 Ot 511.9 02/24/2015 Ot 276.1 02/24/2015 Ot 276.1 02/24/2015 Ot 791.9 02/24/2015 Ot 276.1 02/24/2015 Ot 275.2 02/24/2015 Ot 276.1 02/24/2015 Ot 276.9 02/24/2015 Ot 275.2 02/24/2015 Ot 276.1 02/24/2015 Ot 276.8 02/24/2015 Ot 733.00 02/24/2015 Ot 268.9 02/24/2015 Ot 733.00 02/24/2015 Ot 733.90 02/24/2015 Ot V76.12 02/24/2015 Ot 789.01 02/24/2015 Ot 401.9 02/24/2015 Ot 440.20 02/24/2015 Ot 587 02/24/2015 Ot 722.4 02/24/2015 Ot 959.19 02/24/2015 Ot E000.8 02/24/2015 Ot E849.0 02/24/2015 Ot E888.9 02/24/2015 Ot 253.6 02/24/2015 Ot 722.52 02/24/2015 Ot V54.17 02/24/2015 Ot 244.9 02/24/2015 Ot 253.6 02/24/2015 Ot 253.6 02/24/2015 Ot 305.1 02/24/2015 Ot 401.9 02/24/2015 Ot 428.0 02/24/2015 Ot 433.30 02/24/2015 Ot V76.12 02/24/2015 Ot 253.6 02/24/2015 Ot 305.1 02/24/2015 Ot 496 02/24/2015 Ot 786.05 02/24/2015 Ot 427.31 02/24/2015 Ot 780.79 02/24/2015 Ot 785.1 02/24/2015 Ot 786.50 02/24/2015 Ot 786.05 02/24/2015 Ot 786.2 02/24/2015 Ot 427.31 02/24/2015 Ot 780.79 02/24/2015 Ot 785.1 02/24/2015 Ot 786.59 02/24/2015 LELE HUGHES MD Ot 305.1 02/24/2015 LELE HUGHES MD Ot 403.90 02/24/2015 LELE HUGHES MD Ot 496 02/24/2015 LELE HUGHES MD Ot 585.9 02/24/2015 LELE HUGHES MD Ot 721.3 02/24/2015 LELE HUGHES MD Ot 722.4 02/24/2015 LELE HUGHES MD Ot 722.52 02/24/2015 LELE HUGHES MD Ot 729.1 02/24/2015 LELE HUGHES MD Ot 785.1 02/24/2015 LELE HUGHES MD Ot V58.69 02/24/2015 LELE HUGHES MD Ot 246.9 02/24/2015 LELE HUGHES MD Ot 300.00 02/24/2015 LELE HUGHES MD Ot 305.1 02/24/2015 LELE HUGHES MD Ot 477.9 02/24/2015 LELE HUGHES MD Ot 721.3 02/24/2015 LELE HUGHES MD Ot 722.4 02/24/2015 LELE HUGHES MD Ot 722.52 02/24/2015 LELE HUGHES MD Ot 729.1 02/24/2015 LELE HUGHES MD Ot V58.69 02/24/2015 LELE HUGHES MD Ot 721.3 02/24/2015 LELE HUGHES MD Ot 722.4 02/24/2015 LELE HUGHES MD Ot 722.52 02/24/2015 LELE HUGHES MD Ot 729.1 02/24/2015 LELE HUGHES MD Ot V58.69 02/24/2015 LELE HUGHES MD Ot 721.3 02/24/2015 LELE HUGHES MD Ot 722.4 02/24/2015 LELE HUGHES MD Ot 722.52 02/24/2015 LELE HUGHES MD Ot 724.6 02/24/2015 LELE HUGHES MD Ot 729.1 02/24/2015 LELE HUGHES MD Ot V58.69 02/24/2015 SHAYY PEOPLES MD Ot V76.12 02/24/2015 LELE HUGHES MD Ot 721.3 02/24/2015 LELE HUGHES MD Ot 722.4 02/24/2015 LELE HUGHES MD Ot 722.52 02/24/2015 LELE HUGHES MD Ot 724.6 02/24/2015 LELE HUGHES MD Ot 729.1 02/24/2015 LELE HUGHES MD Ot V58.69 02/24/2015 RICHELLE LAU, SHAYY Burnett Ot 253.6 02/24/2015 RICHELLE LAU, SHAYY Burnett Ot 305.1 02/24/2015 RICHELLE LAU, SHAYY L Ot 783.21 02/24/2015 RAYNA FARAH MD Ot V72.84 02/24/2015 RICHELLE LAU, SHAYY L Ot 789.30 02/24/2015 RICHELLE LAU, SHAYY L Ot 255.9 02/24/2015 RICHELLE LAU, SHAYY L Ot 789.30 02/24/2015 LELE HUGHES MD Ot 338.4 02/24/2015 LELE HUGHES MD Ot 721.3 02/24/2015 LELE HUGHES MD Ot 722.52 02/24/2015 LELE HUGHES MD Ot 729.1 02/24/2015 LELE HUGHES MD Ot V58.69 02/24/2015 OBINNA PRASAD MD Ot 921.0 02/24/2015 OBINNA PRASAD MD Ot 959.01 02/24/2015 OBINNA PRASAD MD Ot E000.8 02/24/2015 OBINNA PRASAD MD Ot E849.0 02/24/2015 OBINNA PRASAD MD Ot E917.3 02/24/2015 LELE HUGHES MD Ot 724.02 02/24/2015 LELE HUGHES MD Ot 733.13 02/24/2015 LELE HUGHES MD Ot 724.02 02/24/2015 LELE HUGHES MD Ot 733.13 03/19/2015 OBINNA PRASAD MD Ot 255.9 03/19/2015 OBINNA PRASAD MD Ot 244.9 03/19/2015 OBINNA PRASAD MD Ot 401.9 04/02/2015 OBINNA PRASAD MD Ot 255.9 04/02/2015 OBINNA PRASAD MD Ot 244.9 04/02/2015 OBINNA PRASAD MD Ot 401.9 04/03/2015 KURTIS LAU, JOVANA P Ot 388.70 04/03/2015 KURTIS LAU, JOVANA P Ot 462 04/03/2015 KURTIS LAU, JOVANA P Ot 478.5 04/21/2015 KURTIS LAU, JOVANA P Ot 388.70 04/21/2015 KURTIS LAU, JOVANA P Ot 462 04/21/2015 KURTIS LAU, JOVANA P Ot 478.5 05/09/2015 LELE HUGHES MD Ot 338.4 CHRONIC PAIN SYNDROME 05/09/2015 LELE HUGHES MD Ot 721.3 LUMBOSACRAL SPONDYLOSIS 05/09/2015 LELE HUGHES MD Ot 722.52 LUMB/LUMBOSAC DISC DEGEN 05/09/2015 LELE HUGHES MD Ot V58.69 OT MED,LT,CURRENT USE 05/22/2015 OBINNA PRASAD MD Ot 038.9 SEPTICEMIA NOS 05/22/2015 OBINNA PRASAD MD Ot 227.0 BENIGN NEOPLASM ADRENAL 05/22/2015 OBINNA PRASAD MD Ot 244.9 HYPOTHYROIDISM NOS 05/22/2015 OBINNA PRASAD MD Ot 276.1 HYPOSMOLALITY 05/22/2015 OBINNA PRASAD MD Ot 305.1 TOBACCO USE DISORDER 05/22/2015 OBINNA PRASAD MD Ot 401.9 HYPERTENSION NOS 05/22/2015 OBINNA PRASAD MD Ot 427.31 ATRIAL FIBRILLATION 05/22/2015 OBINNA PRASAD MD Ot 428.0 CONGESTIVE HEART FAILURE NOS 05/22/2015 OBINNA PRASAD MD Ot 472.1 CHRONIC PHARYNGITIS 05/22/2015 OBINNA PRASAD MD Ot 486 PNEUMONIA, ORGANISM NOS 05/22/2015 OBINNA PRASAD MD Ot 492.8 EMPHYSEMA NEC 05/22/2015 OBINNA PRASAD MD Ot 530.81 ESOPHAGEAL REFLUX 05/22/2015 OBINNA PRASAD MD Ot 530.85 PEREZ'S ESOPHAGUS 05/22/2015 OBINNA PRASAD MD Ot 553.3 DIAPHRAGMATIC HERNIA 05/22/2015 OBINNA PRASAD MD Ot 722.6 DISC DEGENERATION NOS 05/22/2015 OBINNA PRASAD MD Ot 995.91 SEPSIS 05/22/2015 OBINNA PRASAD MD Ot A41.9 SEPSIS, UNSPECIFIED ORGANISM 05/22/2015 OBINNA PRASAD MD Ot D35.00 BENIGN NEOPLASM OF UNSPECIFIED ADRENAL G 05/22/2015 OBINNA PRASAD MD Ot E03.9 HYPOTHYROIDISM, UNSPECIFIED 05/22/2015 OBINNA PRASAD MD Ot E87.1 HYPO-OSMOLALITY AND HYPONATREMIA 05/22/2015 OBINNA PRASAD MD Ot F17.200 NICOTINE DEPENDENCE, UNSPECIFIED, UNCOMP 05/22/2015 OBINNA PRASAD MD Ot I10 ESSENTIAL (PRIMARY) HYPERTENSION 05/22/2015 OBINNA PRASAD MD Ot I48.91 UNSPECIFIED ATRIAL FIBRILLATION 05/22/2015 OBINNA PRASAD MD Ot I50.9 HEART FAILURE, UNSPECIFIED 05/22/2015 OBINNA PRASAD MD Ot J18.9 PNEUMONIA, UNSPECIFIED ORGANISM 05/22/2015 OBINNA PRASAD MD Ot J31.2 CHRONIC PHARYNGITIS 05/22/2015 OBINNA PRASAD MD, Ot J43.9 EMPHYSEMA, UNSPECIFIED 05/22/2015 OBINNA PRASAD MD Ot K21.9 GASTRO-ESOPHAGEAL REFLUX DISEASE WITHOUT 05/22/2015 OBINNA PRASAD MD Ot 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 05/22/2015 OBINNA PRASAD MD, Ot K44.9 DIAPHRAGMATIC HERNIA WITHOUT OBSTRUCTION 05/22/2015 OBINNA PRASAD MD Ot V12.71 PERSONAL HISTORY OF PEPTIC ULCER DISEASE 05/22/2015 OBINNA PRASAD MD Ot V45.75 ACQRD ABSENCE OF STOMACH 05/22/2015 OBINNA PRASAD MD, Ot V58.61 ANTICOAGULANTS,LT,CURRENT USE 05/22/2015 OBINNA PRASAD MD, Ot Z79.01 ACADEMIC DEAN (CURRENT) USE OF ANTICOAGULANT 05/22/2015 OBINNA PRASAD MD Ot Z87.11 PERSONAL HISTORY OF PEPTIC ULCER DISEASE 05/22/2015 OBINNA PRASAD MD, Ot Z90.3 ACQUIRED ABSENCE OF STOMACH [PART OF] 06/27/2015 LELE HUGHES MD Ot M51.26 OTHER INTERVERTEBRAL DISC DISPLACEMENT, 06/27/2015 LELE HUGHES MD Ot M51.36 OTHER INTERVERTEBRAL DISC DEGENERATION, 07/23/2015 OBINNA PRASAD MD, Ot J18.9 08/11/2015 OBINNA PRASAD MD, Ot J18.9 08/13/2015 MERRITT VALENZUELA DO Ot D35.00 08/25/2015 MERRITT VALENZUELA DO Ot D35.00 10/10/2015 LELE HUGHES MD Ot G89.4 CHRONIC PAIN SYNDROME 10/10/2015 LELE HUGHES MD Ot M47.816 SPONDYLOSIS W/O MYELOPATHY OR RADICULOPA 10/10/2015 LELE HUGHES MD, Ot M51.16 INTERVERTEBRAL DISC DISORDERS W RADICULO 10/10/2015 LELE HUGHES MD Ot M53.3 SACROCOCCYGEAL DISORDERS, NOT ELSEWHERE 10/10/2015 LELE HUGHES MD, Ot Z79.01 ACADEMIC DEAN (CURRENT) USE OF ANTICOAGULANT 10/10/2015 LELE HUGHES MD, Ot Z79.899 OTHER ACADEMIC DEAN (CURRENT) DRUG THERAPY 11/17/2015 Ot 458.9 11/18/2015 FABIANA BEJARANO MD Ot D35.00 BENIGN NEOPLASM OF UNSPECIFIED ADRENAL G 11/18/2015 FABIANA BEJARANO MD Ot F17.210 NICOTINE DEPENDENCE, CIGARETTES, UNCOMPL 11/18/2015 FABIANA BEJARANO MD Ot I48.91 UNSPECIFIED ATRIAL FIBRILLATION 11/18/2015 FABIANA BEJARANO MD, Ot J11.00 FLU DUE TO UNIDENTIFIED FLU VIRUS W UNSP 11/18/2015 FABIANA BEJARANO MD Ot J18.9 PNEUMONIA, UNSPECIFIED ORGANISM 11/18/2015 FABIANA BEJARANO MD, Ot J44.9 CHRONIC OBSTRUCTIVE PULMONARY DISEASE, U 11/18/2015 FABIANA BEJARANO MD, Ot J96.11 CHRONIC RESPIRATORY FAILURE WITH HYPOXIA 11/18/2015 FABIANA BEJARANO MD Ot Z23 ENCOUNTER FOR IMMUNIZATION 01/29/2016 KIM THURSTON DO Ot K21.9 GASTRO-ESOPHAGEAL REFLUX DISEASE WITHOUT 01/29/2016 THURSTONELVER BYRD DOTT Angus Ot 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 01/29/2016 FENTON KIM BAER Ot Z01.818 ENCOUNTER FOR OTHER PREPROCEDURAL EXAMIN 01/29/2016 FENTON KIM BAER Ot Z86.010 PERSONAL HISTORY OF COLONIC POLYPS 01/30/2016 KIM THURSTON DO Ot K21.9 GASTRO-ESOPHAGEAL REFLUX DISEASE WITHOUT 01/30/2016 ELVER THURSTON DOTT D Ot 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 01/30/2016 FENTON KIM BAER Ot Z01.818 ENCOUNTER FOR OTHER PREPROCEDURAL EXAMIN 01/30/2016 THURSTONKIM BYRD DO Ot Z86.010 PERSONAL HISTORY OF COLONIC POLYPS 03/01/2016 SHANICE LAU, OBINNA Corral Ot R91.8 OTHER NONSPECIFIC ABNORMAL FINDING OF SUSAN 03/02/2016 VERONICA LAU FAC, ALI FACP CCDS Ot D35.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 03/02/2016 VERONICA LAU FAC, ALI FACP CCDS Ot E87.1 HYPO-OSMOLALITY AND HYPONATREMIA 03/02/2016 VERONICA LAU FACC, ALI FACP CCDS Ot I10 ESSENTIAL (PRIMARY) HYPERTENSION 03/02/2016 VERONICA LAU FACC, ALI FACP CCDS Ot I48.0 PAROXYSMAL ATRIAL FIBRILLATION 03/02/2016 VERONICA LAU FACC, ALI FACP CCDS Ot I50.32 CHRONIC DIASTOLIC (CONGESTIVE) HEART FAROOQ 03/02/2016 VERONICA MARIEC, ALI FACP CCDS Ot J43.8 OTHER EMPHYSEMA 03/02/2016 VERONICA LAU FACC, ALI FACP CCDS Ot Z72.0 TOBACCO USE 03/02/2016 OBINNA PRASAD MD Ot R91.8 OTHER NONSPECIFIC ABNORMAL FINDING OF SUSAN 03/02/2016 NIVIA LAU, DIALLO Quinones Ot J44.9 CHRONIC OBSTRUCTIVE PULMONARY DISEASE, U 03/02/2016 VERONICA LAU FACC, ALI FACP CCDS Ot D35.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 03/02/2016 VERONICA LAU FACC, ALI FACP CCDS Ot E87.1 HYPO-OSMOLALITY AND HYPONATREMIA 03/02/2016 VERONIAC LAU FACC, ALI FACP CCDS Ot I10 ESSENTIAL (PRIMARY) HYPERTENSION 03/02/2016 VERONICA LAU FACC, ALI FACP CCDS Ot I48.0 PAROXYSMAL ATRIAL FIBRILLATION 03/02/2016 VERONICA LAU FACC, ALI FACP CCDS Ot I50.32 CHRONIC DIASTOLIC (CONGESTIVE) HEART FAROOQ 03/02/2016 VERONICA MARIEC, ALI FACP CCDS Ot J43.8 OTHER EMPHYSEMA 03/02/2016 VERONICA LAU FACC, ALI FACP CCDS Ot Z72.0 TOBACCO USE 03/04/2016 OBINNA PRASAD MD Ot R91.8 OTHER NONSPECIFIC ABNORMAL FINDING OF SUSAN 03/07/2016 VERONICA LAU FACC, ALI FACP CCDS Ot D35.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 03/07/2016 VERONICA LAU FACC, ALI FACP CCDS Ot E87.1 HYPO-OSMOLALITY AND HYPONATREMIA 03/07/2016 VERONICA MARIEC, ALI FACP CCDS Ot I10 ESSENTIAL (PRIMARY) HYPERTENSION 03/07/2016 VERONICA LAU FACC, ALI FACP CCDS Ot I48.0 PAROXYSMAL ATRIAL FIBRILLATION 03/07/2016 VERONICA MARIEC, ALI FACP CCDS Ot I50.32 CHRONIC DIASTOLIC (CONGESTIVE) HEART FAROOQ 03/07/2016 VERONICA MARIEC, ALI FACP CCDS Ot J43.8 OTHER EMPHYSEMA 03/07/2016 VERONICA MARIEC, ALI FACP CCDS Ot Z72.0 TOBACCO USE 03/30/2016 OBINNA PRASAD MD Ot R91.8 OTHER NONSPECIFIC ABNORMAL FINDING OF SUSAN 03/30/2016 VERONICA LAU FACC, ALI FACP CCDS Ot D35.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 03/30/2016 VERONICA LAU FACC, ALI FACP CCDS Ot E87.1 HYPO-OSMOLALITY AND HYPONATREMIA 03/30/2016 VERONICA LAU FACC, ALI FACP CCDS Ot I10 ESSENTIAL (PRIMARY) HYPERTENSION 03/30/2016 VERONICA LAU FACC, ALI FACP CCDS Ot I48.0 PAROXYSMAL ATRIAL FIBRILLATION 03/30/2016 VERONICA LAU FACC, ALI FACP CCDS Ot I50.32 CHRONIC DIASTOLIC (CONGESTIVE) HEART FAROOQ 03/30/2016 VERONICA LAU FACC, ALI FACP CCDS Ot J43.8 OTHER EMPHYSEMA 03/30/2016 VERONICA LAU FACC, ALI FACP CCDS Ot Z72.0 TOBACCO USE 03/30/2016 DIALLO GONZÁLES MD S Ot J44.9 CHRONIC OBSTRUCTIVE PULMONARY DISEASE, U 03/30/2016 VERONICA LAU FACC, ALI FACP CCDS Ot D35.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 03/30/2016 VERONICA LAU FACC, ALI FACP CCDS Ot E87.1 HYPO-OSMOLALITY AND HYPONATREMIA 03/30/2016 VERONICA LAU FACC, ALI FACP CCDS Ot I10 ESSENTIAL (PRIMARY) HYPERTENSION 03/30/2016 VERONICA LAU FACC, ALI FACP CCDS Ot I48.0 PAROXYSMAL ATRIAL FIBRILLATION 03/30/2016 VERONICA LAU FACC, ALI FACP CCDS Ot I50.32 CHRONIC DIASTOLIC (CONGESTIVE) HEART FAROOQ 03/30/2016 VERONICA MARIEC, ALI FACP CCDS Ot J43.8 OTHER EMPHYSEMA 03/30/2016 VERONICA MARIEC, ALI FACP CCDS Ot Z72.0 TOBACCO USE 03/30/2016 JULY GONZÁLES MDID S Ot J44.9 CHRONIC OBSTRUCTIVE PULMONARY DISEASE, U 04/12/2016 OBINNA PRASAD MD Ot R91.8 OTHER NONSPECIFIC ABNORMAL FINDING OF SUSAN 08/09/2016 Ot 458.9 HYPOTENSION NOS 08/09/2016 Ot 511.9 PLEURAL EFFUSION NOS 08/09/2016 Ot 511.9 PLEURAL EFFUSION NOS 08/09/2016 Ot 429.3 CARDIOMEGALY 08/09/2016 Ot 511.9 PLEURAL EFFUSION NOS 08/09/2016 Ot 518.0 PULMONARY COLLAPSE 08/09/2016 Ot 428.0 CONGESTIVE HEART FAILURE NOS 08/09/2016 Ot 414.00 CORON ATHEROSCLER NOS TYPE VESSEL, NATIV 08/09/2016 Ot 511.9 PLEURAL EFFUSION NOS 08/09/2016 Ot V58.69 OTH MED,LT, CURRENT USE 08/09/2016 Ot 276.1 HYPOSMOLALITY 08/09/2016 Ot 511.9 PLEURAL EFFUSION NOS 08/09/2016 Ot 276.1 HYPOSMOLALITY 08/09/2016 Ot 276.1 HYPOSMOLALITY 08/09/2016 Ot 791.9 ABN URINE FINDINGS NEC 08/09/2016 Ot 276.1 HYPOSMOLALITY 08/09/2016 Ot 275.2 DIS MAGNESIUM METABOLISM 08/09/2016 Ot 276.1 HYPOSMOLALITY 08/09/2016 Ot 276.9 ELECTROLYT/ FLUID DIS NEC 08/09/2016 Ot 275.2 DIS MAGNESIUM METABOLISM 08/09/2016 Ot 276.1 HYPOSMOLALITY 08/09/2016 Ot 276.8 HYPOPOTASSEMIA 08/09/2016 Ot 733.00 OSTEOPOROSIS NOS 08/09/2016 Ot 268.9 VITAMIN D DEFICIENCY NOS 08/09/2016 Ot 733.00 OSTEOPOROSIS NOS 08/09/2016 Ot 733.90 BONE CARTILAGE DIS NOS 08/09/2016 Ot V76.12 OTH SCREEN MAMMO-MALIGN NEOPLASM OF [place] 08/09/2016 Ot 789.01 ABDOMINAL PAIN, RIGHT UPPER QUADRANT 08/09/2016 Ot 401.9 HYPERTENSION NOS 08/09/2016 Ot 440.20 ATHEROSCLEROSIS [place] ARTERIES EXTREMIT 08/09/2016 Ot 587 RENAL SCLEROSIS NOS 08/09/2016 Ot 722.4 CERVICAL DISC DEGEN 08/09/2016 Ot 959.19 OTH INJURY OF OTHER SITES OF TRUNK 08/09/2016 Ot E000.8 OTHER EXTERNAL CAUSE STATUS 08/09/2016 Ot E849.0 ACCIDENT IN HOME 08/09/2016 Ot E888.9 FALL NOS 08/09/2016 Ot 253.6 NEUROHYPOPHYSIS DIS NEC 08/09/2016 Ot 722.52 LUMB/ LUMBOSAC DISC DEGEN 08/09/2016 Ot V54.17 AFTERCARE HEALING TRAUMATIC FX VERTEBRAE 08/09/2016 Ot 244.9 HYPOTHYROIDISM NOS 08/09/2016 Ot 253.6 NEUROHYPOPHYSIS DIS NEC 08/09/2016 Ot 253.6 NEUROHYPOPHYSIS DIS NEC 08/09/2016 Ot 305.1 TOBACCO USE DISORDER 08/09/2016 Ot 401.9 HYPERTENSION NOS 08/09/2016 Ot 428.0 CONGESTIVE HEART FAILURE NOS 08/09/2016 Ot 433.30 MULT BILTRAL ARTERY OCCLUSION WO CEREBRA 08/09/2016 Ot V76.12 OTH SCREEN MAMMO-MALIGN NEOPLASM OF [place] 08/09/2016 Ot 253.6 NEUROHYPOPHYSIS DIS NEC 08/09/2016 Ot 305.1 TOBACCO USE DISORDER 08/09/2016 Ot 496 CHR AIRWAY OBSTRUCT NEC 08/09/2016 Ot 786.05 SHORTNESS OF BREATH 08/09/2016 Ot 427.31 ATRIAL FIBRILLATION 08/09/2016 Ot 780.79 OTH MALAISE FATIGUE 08/09/2016 Ot 785.1 PALPITATIONS 08/09/2016 Ot 786.50 CHEST PAIN NOS 08/09/2016 Ot 786.05 SHORTNESS OF BREATH 08/09/2016 Ot 786.2 COUGH 08/09/2016 Ot 427.31 ATRIAL FIBRILLATION 08/09/2016 Ot 780.79 OTH MALAISE FATIGUE 08/09/2016 Ot 785.1 PALPITATIONS 08/09/2016 Ot 786.59 CHEST PAIN NEC 08/09/2016 LELE HUGHES MD Ot 305.1 TOBACCO USE DISORDER 08/09/2016 LELE HUGHES MD Ot 403.90 HYPTNSV CHR KID DIS, UNSPEC, W CHR KD ST 08/09/2016 LELE HUGHES MD Ot 496 CHR AIRWAY OBSTRUCT NEC 08/09/2016 LELE HUGHES MD Ot 585.9 CHRONIC KIDNEY DISEASE, UNSPECIFIED 08/09/2016 LELE HUGHES MD Ot 721.3 LUMBOSACRAL SPONDYLOSIS 08/09/2016 LELE HUGHES MD Ot 722.4 CERVICAL DISC DEGEN 08/09/2016 LELE HUGHES MD Ot 722.52 LUMB/LUMBOSAC DISC DEGEN 08/09/2016 LELE HUGHES MD Ot 729.1 MYALGIA AND MYOSITIS NOS 08/09/2016 LELE HUGHES MD Ot 785.1 PALPITATIONS 08/09/2016 LELE HUGHES MD Ot V58.69 OTH MED,LT,CURRENT USE 08/09/2016 LELE HUGHES MD Ot 246.9 DISORDER OF THYROID NOS 08/09/2016 LELE HUGHES MD Ot 300.00 ANXIETY STATE NOS 08/09/2016 LELE HUGHES MD Ot 305.1 TOBACCO USE DISORDER 08/09/2016 LELE HUGHES MD Ot 477.9 ALLERGIC RHINITIS NOS 08/09/2016 LELE HUGHES MD Ot 721.3 LUMBOSACRAL SPONDYLOSIS 08/09/2016 LELE HUGHES MD Ot 722.4 CERVICAL DISC DEGEN 08/09/2016 LELE HUGHES MD Ot 722.52 LUMB/LUMBOSAC DISC DEGEN 08/09/2016 LELE HUGHES MD Ot 729.1 MYALGIA AND MYOSITIS NOS 08/09/2016 LELE HUGHES MD, Ot V58.69 OTH MED,LT,CURRENT USE 08/09/2016 LELE HUGHES MD Ot 721.3 LUMBOSACRAL SPONDYLOSIS 08/09/2016 LELE HUGHES MD Ot 722.4 CERVICAL DISC DEGEN 08/09/2016 LELE HUGHES MD Ot 722.52 LUMB/LUMBOSAC DISC DEGEN 08/09/2016 LELE HUGHES MD Ot 729.1 MYALGIA AND MYOSITIS NOS 08/09/2016 LELE HUGHES MD, Ot V58.69 OTH MED,LT,CURRENT USE 08/09/2016 LELE HUGHES MD Ot 721.3 LUMBOSACRAL SPONDYLOSIS 08/09/2016 LELE HUGHES MD Ot 722.4 CERVICAL DISC DEGEN 08/09/2016 LELE HUGHES MD Ot 722.52 LUMB/LUMBOSAC DISC DEGEN 08/09/2016 LELE HUGHES MD Ot 724.6 DISORDERS OF SACRUM 08/09/2016 LELE HUGHES MD Ot 729.1 MYALGIA AND MYOSITIS NOS 08/09/2016 LELE HUGHES MD, Ot V58.69 OTH MED,LT,CURRENT USE 08/09/2016 RICHELLE LAU, SHAYY Burnett Ot V76.12 OTH SCREEN MAMMO-MALIGN NEOPLASM OF [place] 08/09/2016 LELE HUGHES MD Ot 721.3 LUMBOSACRAL SPONDYLOSIS 08/09/2016 LELE HUGHES MD Ot 722.4 CERVICAL DISC DEGEN 08/09/2016 LELE HUGHES MD Ot 722.52 LUMB/LUMBOSAC DISC DEGEN 08/09/2016 LELE HUGHES MD Ot 724.6 DISORDERS OF SACRUM 08/09/2016 LELE HUGHES MD Ot 729.1 MYALGIA AND MYOSITIS NOS 08/09/2016 LELE HUGHES MD, Ot V58.69 OTH MED,LT,CURRENT USE 08/09/2016 RICHELLE LAU, SHAYY Burnett Ot 253.6 NEUROHYPOPHYSIS DIS NEC 08/09/2016 RICHELLE LAU, SHAYY Burnett Ot 305.1 TOBACCO USE DISORDER 08/09/2016 RICHELLE LAU, SHAYY Burnett Ot 783.21 LOSS OF WEIGHT 08/09/2016 GAGAN LAU, [facility] Ot V72.84 EXAM PRE-OPERATIVE NOS 08/09/2016 SHAYY PEOPLES MD Ot 789.30 ABDOMINAL/PELVIC SWELLING,MASS/LUMP UNSP 08/09/2016 SHAYY PEOPLES MD Ot 255.9 ADRENAL DISORDER N0S 08/09/2016 SHAYY PEOPLES MD Ot 789.30 ABDOMINAL/PELVIC SWELLING,MASS/LUMP UNSP 08/09/2016 LELE HUGHES MD Ot 338.4 CHRONIC PAIN SYNDROME 08/09/2016 LELE HUGHES MD Ot 721.3 LUMBOSACRAL SPONDYLOSIS 08/09/2016 LELE HUGHES MD Ot 722.52 LUMB/LUMBOSAC DISC DEGEN 08/09/2016 LELE HUGHES MD Ot 729.1 MYALGIA AND MYOSITIS NOS 08/09/2016 LELE HUGHES MD Ot V58.69 OTH MED,LT,CURRENT USE 08/09/2016 OBINNA PRASAD MD Ot 921.0 BLACK EYE NOS 08/09/2016 OBINNA PRASAD MD Ot 959.01 HEAD INJURY, NOS 08/09/2016 OBINNA PRASAD MD Ot E000.8 OTHER EXTERNAL CAUSE STATUS 08/09/2016 OBINNA PRASAD MD Ot E849.0 ACCIDENT IN HOME 08/09/2016 OBINNA PRASAD MD Ot E917.3 FURNIT W/O SUB FALL 08/09/2016 LELE HUGHES MD Ot 724.02 SPINAL STENOSIS, LUMBAR REG, W/OUT NEURO 08/09/2016 LELE HUGHES MD Ot 733.13 PATHOLOGIC FRACTURE, VERTEBRAE 08/09/2016 OBINNA PRASAD MD Ot 255.9 ADRENAL DISORDER N0S 08/09/2016 OBINNA PRASAD MD Ot 244.9 HYPOTHYROIDISM NOS 08/09/2016 OBINNA PRASAD MD Ot 401.9 HYPERTENSION NOS 08/09/2016 JOVANA HULL MD Ot 388.70 OTALGIA NOS 08/09/2016 JOVANA HULL MD Ot 462 ACUTE PHARYNGITIS 08/09/2016 JOVANA HULL MD Ot 478.5 VOCAL CORD DISEASE NEC 08/09/2016 OBINNA PRASAD MD Ot J18.9 PNEUMONIA, UNSPECIFIED ORGANISM 08/09/2016 MERRITT VALENZUELA DO Ot D35.00 BENIGN NEOPLASM OF UNSPECIFIED ADRENAL G 08/09/2016 OBINNA PRASAD MD Ot R91.8 OTHER NONSPECIFIC ABNORMAL FINDING OF [place]US[place] 08/09/2016 VERONICA LAU FACC, ALI FACP CCDS Ot D35.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 08/09/2016 VERONICA LAU FACC, ALI FACP CCDS Ot E87.1 HYPO-OSMOLALITY AND HYPONATREMIA 08/09/2016 VERONICA LAU FACC, ALI FACP CCDS Ot I10 ESSENTIAL (PRIMARY) HYPERTENSION 08/09/2016 VERONICA LAU FACC, ALI FACP CCDS Ot I48.0 PAROXYSMAL ATRIAL FIBRILLATION 08/09/2016 VERONICA LAU FACC, ALI FACP CCDS Ot I50.32 CHRONIC DIASTOLIC (CONGESTIVE) HEART FAROOQ 08/09/2016 VERONICA LAU FACC, ALI FACP CCDS Ot J43.8 OTHER EMPHYSEMA 08/09/2016 VERONICA LAU FACC, ALI FACP CCDS Ot Z72.0 TOBACCO USE 08/09/2016 DIALLO GONZÁLES MD S Ot J44.9 CHRONIC OBSTRUCTIVE PULMONARY DISEASE, U 08/10/2016 DIALLO GONZÁLES MD S Ot J44.9 CHRONIC OBSTRUCTIVE PULMONARY DISEASE, U 08/16/2016 LELE HUGHES MD Ot M51.16 INTERVERTEBRAL DISC DISORDERS W RADICULO 09/03/2016 DIALLO GONZÁLES MD S Ot J44.9 CHRONIC OBSTRUCTIVE PULMONARY DISEASE, U 09/09/2016 DIALLO GONZÁLES MD S Ot J44.9 CHRONIC OBSTRUCTIVE PULMONARY DISEASE, U 09/13/2016 TOSHIA DUENAS DO Ot F17.210 NICOTINE DEPENDENCE, CIGARETTES, UNCOMPL 09/13/2016 TOSHIA DUENAS DO Ot I48.2 CHRONIC ATRIAL FIBRILLATION 09/13/2016 TOSHIA DUENAS DO Ot I50.9 HEART FAILURE, UNSPECIFIED 09/13/2016 TOSHIA DUENAS DO Ot J44.1 CHRONIC OBSTRUCTIVE PULMONARY DISEASE W 09/13/2016 TOSHIA DUENAS DO Ot R06.02 SHORTNESS OF BREATH 09/13/2016 TOSHIA DUENAS DO Ot Z79.899 OTHER ACADEMIC DEAN (CURRENT) DRUG THERAPY 09/15/2016 TOSHIA DUENAS DO Ot F17.210 NICOTINE DEPENDENCE, CIGARETTES, UNCOMPL 09/15/2016 TOSHIA DUENAS DO Ot I48.2 CHRONIC ATRIAL FIBRILLATION 09/15/2016 TOSHIA DUENAS DO Ot I50.9 HEART FAILURE, UNSPECIFIED 09/15/2016 TOSHIA DUENAS DO Ot J44.1 CHRONIC OBSTRUCTIVE PULMONARY DISEASE W 09/15/2016 TOSHIA DUENAS DO Ot R06.02 SHORTNESS OF BREATH 09/15/2016 TOSHIA DUENAS DO Ot Z79.899 OTHER [facility] (CURRENT) DRUG THERAPY 09/15/2016 TOSHIA DUENAS DO Ot F17.210 NICOTINE DEPENDENCE, CIGARETTES, UNCOMPL 09/15/2016 TOSHIA DUENAS DO Ot I48.2 CHRONIC ATRIAL FIBRILLATION 09/15/2016 TOSHIA DUENAS DO Ot I50.9 HEART FAILURE, UNSPECIFIED 09/15/2016 TOSHIA DUENAS DO Ot J44.1 CHRONIC OBSTRUCTIVE PULMONARY DISEASE W 09/15/2016 TOSHIA DUENAS DO Ot R06.02 SHORTNESS OF BREATH 09/15/2016 TOSHIA DUENAS DO Ot Z79.899 OTHER [facility] (CURRENT) DRUG THERAPY 09/15/2016 SAUL LAU, LELE Mera Ot M51.16 INTERVERTEBRAL DISC DISORDERS W RADICULO 10/01/2016 BLAKE LAU, ADINA Mullins Ot R06.02 SHORTNESS OF BREATH 10/21/2016 ADINA LOZANO MD Ot R06.02 SHORTNESS OF BREATH 11/02/2016 ADINA LOZANO MD Ot R06.02 SHORTNESS OF BREATH 11/05/2016 LELE HUGHES MD Ot G89.4 CHRONIC PAIN SYNDROME 11/05/2016 LELE HUGHES MD Ot M47.816 SPONDYLOSIS W/O MYELOPATHY OR RADICULOPA 11/05/2016 LELE HUGHES MD Ot M51.16 INTERVERTEBRAL DISC DISORDERS W RADICULO 11/05/2016 LELE HUGHES MD Ot M53.3 SACROCOCCYGEAL DISORDERS, NOT ELSEWHERE 11/05/2016 LELE HUGHES MD Ot Z79.899 OTHER ACADEMIC DEAN (CURRENT) DRUG THERAPY 11/07/2016 NIVIA LAU, DIALLO S Ot J44.9 CHRONIC OBSTRUCTIVE PULMONARY DISEASE, U 05/11/2017 VERONICA LAU FACC, ALI FACP CCDS Ot I73.89 OTHER SPECIFIED PERIPHERAL VASCULAR DISE 05/11/2017 Ot 458.9 HYPOTENSION NOS 05/11/2017 Ot 789.01 ABDOMINAL PAIN, RIGHT UPPER QUADRANT 05/11/2017 Ot 401.9 HYPERTENSION NOS 05/11/2017 Ot 440.20 ATHEROSCLEROSIS [place] ARTERIES EXTREMIT 05/11/2017 Ot 587 RENAL SCLEROSIS NOS 05/11/2017 Ot 722.4 CERVICAL DISC DEGEN 05/11/2017 Ot 959.19 OTH INJURY OF OTHER SITES OF TRUNK 05/11/2017 Ot E000.8 OTHER EXTERNAL CAUSE STATUS 05/11/2017 Ot E849.0 ACCIDENT IN HOME 05/11/2017 Ot E888.9 FALL NOS 05/11/2017 Ot 253.6 NEUROHYPOPHYSIS DIS NEC 05/11/2017 Ot 722.52 LUMB/ LUMBOSAC DISC DEGEN 05/11/2017 Ot V54.17 AFTERCARE HEALING TRAUMATIC FX VERTEBRAE 05/11/2017 Ot 244.9 HYPOTHYROIDISM NOS 05/11/2017 Ot 253.6 NEUROHYPOPHYSIS DIS NEC 05/11/2017 Ot 253.6 NEUROHYPOPHYSIS DIS NEC 05/11/2017 Ot 305.1 TOBACCO USE DISORDER 05/11/2017 Ot 401.9 HYPERTENSION NOS 05/11/2017 Ot 428.0 CONGESTIVE HEART FAILURE NOS 05/11/2017 Ot 433.30 MULT BILTRAL ARTERY OCCLUSION WO CEREBRA 05/11/2017 Ot V76.12 OTH SCREEN MAMMO-MALIGN NEOPLASM OF [place] 05/11/2017 Ot 253.6 NEUROHYPOPHYSIS DIS NEC 05/11/2017 Ot 305.1 TOBACCO USE DISORDER 05/11/2017 Ot 496 CHR AIRWAY OBSTRUCT NEC 05/11/2017 Ot 786.05 SHORTNESS OF BREATH 05/11/2017 Ot 427.31 ATRIAL FIBRILLATION 05/11/2017 Ot 780.79 OTH MALAISE FATIGUE 05/11/2017 Ot 785.1 PALPITATIONS 05/11/2017 Ot 786.50 CHEST PAIN NOS 05/11/2017 Ot 786.05 SHORTNESS OF BREATH 05/11/2017 Ot 786.2 COUGH 05/11/2017 Ot 427.31 ATRIAL FIBRILLATION 05/11/2017 Ot 780.79 OTH MALAISE FATIGUE 05/11/2017 Ot 785.1 PALPITATIONS 05/11/2017 Ot 786.59 CHEST PAIN NEC 05/11/2017 LELE HUGHES MD Ot 305.1 TOBACCO USE DISORDER 05/11/2017 LELE HUGHES MD Ot 403.90 HYPTNSV CHR KID DIS, UNSPEC, W CHR KD ST 05/11/2017 LELE HUGHES MD Ot 496 CHR AIRWAY OBSTRUCT NEC 05/11/2017 LELE HUGHES MD Ot 585.9 CHRONIC KIDNEY DISEASE, UNSPECIFIED 05/11/2017 LELE HUGHES MD Ot 721.3 LUMBOSACRAL SPONDYLOSIS 05/11/2017 LELE HUGHES MD Ot 722.4 CERVICAL DISC DEGEN 05/11/2017 LELE HUGHES MD Ot 722.52 LUMB/LUMBOSAC DISC DEGEN 05/11/2017 LELE HUHGES MD Ot 729.1 MYALGIA AND MYOSITIS NOS 05/11/2017 LELE HUGHES MD Ot 785.1 PALPITATIONS 05/11/2017 LELE HUGHES MD Ot V58.69 OTH MED,LT,CURRENT USE 05/11/2017 LELE HUGHES MD Ot 246.9 DISORDER OF THYROID NOS 05/11/2017 LELE HUGHES MD Ot 300.00 ANXIETY STATE NOS 05/11/2017 LELE HUGHES MD Ot 305.1 TOBACCO USE DISORDER 05/11/2017 LELE HUGHES MD Ot 477.9 ALLERGIC RHINITIS NOS 05/11/2017 LELE HUGHES MD Ot 721.3 LUMBOSACRAL SPONDYLOSIS 05/11/2017 LELE HUGHES MD Ot 722.4 CERVICAL DISC DEGEN 05/11/2017 LELE HUGHES MD Ot 722.52 LUMB/LUMBOSAC DISC DEGEN 05/11/2017 LELE HUGHES MD Ot 729.1 MYALGIA AND MYOSITIS NOS 05/11/2017 LELE HUGHES MD, Ot V58.69 OTH MED,LT,CURRENT USE 05/11/2017 LELE HUGHES MD Ot 721.3 LUMBOSACRAL SPONDYLOSIS 05/11/2017 LELE HUGHES MD Ot 722.4 CERVICAL DISC DEGEN 05/11/2017 LELE HUGHES MD Ot 722.52 LUMB/LUMBOSAC DISC DEGEN 05/11/2017 LELE HUGHES MD Ot 729.1 MYALGIA AND MYOSITIS NOS 05/11/2017 LELE HUGHES MD, Ot V58.69 OTH MED,LT,CURRENT USE 05/11/2017 LELE HUGHES MD Ot 721.3 LUMBOSACRAL SPONDYLOSIS 05/11/2017 LELE HUGHES MD Ot 722.4 CERVICAL DISC DEGEN 05/11/2017 LELE HUGHES MD Ot 722.52 LUMB/LUMBOSAC DISC DEGEN 05/11/2017 LELE HUGHES MD Ot 724.6 DISORDERS OF SACRUM 05/11/2017 LELE HUGHES MD Ot 729.1 MYALGIA AND MYOSITIS NOS 05/11/2017 LELE HUGHES MD, Ot V58.69 OTH MED,LT,CURRENT USE 05/11/2017 SHAYY PEOPLES MD Ot V76.12 OTH SCREEN MAMMO-MALIGN NEOPLASM OF [place] 05/11/2017 LELE HUGHES MD Ot 721.3 LUMBOSACRAL SPONDYLOSIS 05/11/2017 LELE HUGHES MD Ot 722.4 CERVICAL DISC DEGEN 05/11/2017 LELE HUGHES MD Ot 722.52 LUMB/LUMBOSAC DISC DEGEN 05/11/2017 LELE HUGHES MD Ot 724.6 DISORDERS OF SACRUM 05/11/2017 LELE HUGHES MD Ot 729.1 MYALGIA AND MYOSITIS NOS 05/11/2017 LELE HUGHES MD, Ot V58.69 OTH MED,LT,CURRENT USE 05/11/2017 SHAYY PEOPLES MD Ot 253.6 NEUROHYPOPHYSIS DIS NEC 05/11/2017 SHAYY PEOPLES MD Ot 305.1 TOBACCO USE DISORDER 05/11/2017 SHAYY PEOPLES MD Ot 783.21 LOSS OF WEIGHT 05/11/2017 GAGAN LAU, RAYNA Ot V72.84 EXAM PRE-OPERATIVE NOS 05/11/2017 RICHELLE LAU, SHAYY Burnett Ot 789.30 ABDOMINAL/PELVIC SWELLING,MASS/LUMP UNSP 05/11/2017 SHAYY PEOPLES MD Ot 255.9 ADRENAL DISORDER N0S 05/11/2017 RICHELLE LAU, SHAYY Burnett Ot 789.30 ABDOMINAL/PELVIC SWELLING,MASS/LUMP UNSP 05/11/2017 LELE HUGHES MD Ot 338.4 CHRONIC PAIN SYNDROME 05/11/2017 LELE HUGHES MD Ot 721.3 LUMBOSACRAL SPONDYLOSIS 05/11/2017 LELE HUGHES MD Ot 722.52 LUMB/LUMBOSAC DISC DEGEN 05/11/2017 LELE HUGHES MD Ot 729.1 MYALGIA AND MYOSITIS NOS 05/11/2017 LELE HUGHES MD Ot V58.69 OTH MED,LT,CURRENT USE 05/11/2017 OBINNA PRASAD MD Ot 921.0 BLACK EYE NOS 05/11/2017 OBINNA PRASAD MD Ot 959.01 HEAD INJURY, NOS 05/11/2017 OBINNA PRASAD MD Ot E000.8 OTHER EXTERNAL CAUSE STATUS 05/11/2017 OBINNA PRASAD MD Ot E849.0 ACCIDENT IN HOME 05/11/2017 OBINNA PRASAD MD Ot E917.3 FURNIT W/O SUB FALL 05/11/2017 LELE HUGHES MD Ot 724.02 SPINAL STENOSIS, LUMBAR REG, W/OUT NEURO 05/11/2017 LELE HUGHES MD Ot 733.13 PATHOLOGIC FRACTURE, VERTEBRAE 05/11/2017 OBINNA PRASAD MD Ot 255.9 ADRENAL DISORDER N0S 05/11/2017 OBINNA PRASAD MD Ot 244.9 HYPOTHYROIDISM NOS 05/11/2017 OBINNA PRASAD MD Ot 401.9 HYPERTENSION NOS 05/11/2017 JOVANA HULL MD Ot 388.70 OTALGIA NOS 05/11/2017 JOVANA HULL MD Ot 462 ACUTE PHARYNGITIS 05/11/2017 JOVANA HULL MD Ot 478.5 VOCAL CORD DISEASE NEC 05/11/2017 OBINNA PRASAD MD Ot J18.9 PNEUMONIA, UNSPECIFIED ORGANISM 05/11/2017 MERRITT VALENZUELA DO L Ot D35.00 BENIGN NEOPLASM OF UNSPECIFIED ADRENAL G 05/11/2017 SHANICE LAU, OBINNA Corral Ot R91.8 OTHER NONSPECIFIC ABNORMAL FINDING OF [place] 05/11/2017 VERONICA LAU [facility], ALI FACP CCDS Ot D35.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 05/11/2017 VERONICA LAU FAC, ALI FACP CCDS Ot E87.1 HYPO-OSMOLALITY AND HYPONATREMIA 05/11/2017 VERONICA LAU FACC, ALI FACP CCDS Ot I10 ESSENTIAL (PRIMARY) HYPERTENSION 05/11/2017 VERONICA LAU [facility], ALI FACP CCDS Ot I48.0 PAROXYSMAL ATRIAL FIBRILLATION 05/11/2017 VERONICA LAU FACC, ALI FACP CCDS Ot I50.32 CHRONIC DIASTOLIC (CONGESTIVE) HEART FAROOQ 05/11/2017 VERONICA LAU FACC, ALI FACP CCDS Ot J43.8 OTHER EMPHYSEMA 05/11/2017 VERONICA LAU FACC, ALI FACP CCDS Ot Z72.0 TOBACCO USE 05/11/2017 DIALLO GONZÁLES MD S Ot J44.9 CHRONIC OBSTRUCTIVE PULMONARY DISEASE, U 05/11/2017 ADINA LOZANO MD R Ot R06.02 SHORTNESS OF BREATH 05/11/2017 DIALLO GONZÁLES MD S Ot J44.9 CHRONIC OBSTRUCTIVE PULMONARY DISEASE, U 05/11/2017 VERONICA LAU FACC, ALI FACP CCDS Ot I73.89 OTHER SPECIFIED PERIPHERAL VASCULAR DISE 05/28/2017 EMELY ESTES Ot E03.9 HYPOTHYROIDISM, UNSPECIFIED 05/28/2017 EMELY ESTES Ot F17.200 NICOTINE DEPENDENCE, UNSPECIFIED, UNCOMP 05/28/2017 EMELY ESTES Ot F41.9 ANXIETY DISORDER, UNSPECIFIED 05/28/2017 EMELY ESTES Ot I10 ESSENTIAL (PRIMARY) HYPERTENSION 05/28/2017 EMELY ESTES Ot I25.10 ATHSCL HEART DISEASE OF [place] CORONARY 05/28/2017 EMELY ESTES Ot I48.91 UNSPECIFIED ATRIAL FIBRILLATION 05/28/2017 EMELY ESTES Ot J43.9 EMPHYSEMA, UNSPECIFIED 05/28/2017 EMELY ESTES Ot K21.9 GASTRO-ESOPHAGEAL REFLUX DISEASE WITHOUT 05/28/2017 EMELY ESTES Ot K59.00 CONSTIPATION, UNSPECIFIED 05/28/2017 EMELY ESTES Ot S09.90XA UNSPECIFIED INJURY OF HEAD, INITIAL ENCO 05/28/2017 EMELY ESTES Ot T21.25XA BURN OF SECOND DEGREE OF BUTTOCK, INITIA 05/28/2017 EMELY ESTES Ot T22.211A BURN OF SECOND DEGREE OF RIGHT FOREARM, 05/28/2017 EMELY ESTES Ot T24.292A BURN 2ND DEG MUL SITES OF LEFT LOWER VILLARREAL 05/28/2017 EMELY ESTES Ot T31.0 TENORIO INVOLVING LESS THAN 10% OF BODY MALAVE 05/28/2017 EMELY ESTES Ot W01.0XXA FALL SAME LEV FROM SLIP/TRIP W/O STRIKE 05/28/2017 EMELY ESTES Ot X11.8XXA CONTACT WITH OTHER HOT TAP-WATER, INITIA 05/28/2017 EMELY ESTES Ot Y92.[address] [facility] [address] [facility] 05/28/2017 EMELY ESTES Ot Z79.82 ACADEMIC DEAN (CURRENT) USE OF ASPIRIN 05/28/2017 EMELY ESTES Ot Z82.49 FAMILY HX OF ISCHEM HEART DIS AND OTH DI 05/28/2017 EMELY ESTES Ot Z87.09 PERSONAL HISTORY OF OTHER DISEASES OF 05/28/2017 EMELY ESTES Ot Z87.19 PERSONAL HISTORY OF OTHER DISEASES OF 05/31/2017 EMELY ESTES Ot K59.00 CONSTIPATION, UNSPECIFIED 06/02/2017 EMELY ESTES Ot E03.9 HYPOTHYROIDISM, UNSPECIFIED 06/02/2017 EMELY ESTES Ot F17.200 NICOTINE DEPENDENCE, UNSPECIFIED, UNCOMP 06/02/2017 EMELY ESTES Ot F41.9 ANXIETY DISORDER, UNSPECIFIED 06/02/2017 EMELY ESTES Ot I10 ESSENTIAL (PRIMARY) HYPERTENSION 06/02/2017 EMELY ESTES Ot I25.10 ATHSCL HEART DISEASE OF [place] CORONARY 06/02/2017 EMELY ESTES Ot I48.91 UNSPECIFIED ATRIAL FIBRILLATION 06/02/2017 EMELY ESTES Ot J43.9 EMPHYSEMA, UNSPECIFIED 06/02/2017 EMELY ESTES Ot K21.9 GASTRO-ESOPHAGEAL REFLUX DISEASE WITHOUT 06/02/2017 EMELY ESTES Ot K59.00 CONSTIPATION, UNSPECIFIED 06/02/2017 EMELY ESTES Ot S09.90XA UNSPECIFIED INJURY OF HEAD, INITIAL ENCO 06/02/2017 EMELY ESTES Ot T21.25XA BURN OF SECOND DEGREE OF BUTTOCK, INITIA 06/02/2017 EMELY ESTES Ot T22.211A BURN OF SECOND DEGREE OF RIGHT FOREARM, 06/02/2017 EMELY ESTES Ot T24.292A BURN 2ND DEG MUL SITES OF LEFT LOWER VILLARREAL 06/02/2017 EMELY ESTES Ot T31.0 TENORIO INVOLVING LESS THAN 10% OF BODY MALAVE 06/02/2017 EMELY ESTES Ot W01.0XXA FALL SAME LEV FROM SLIP/TRIP W/O STRIKE 06/02/2017 EMELY ESTES Ot X11.8XXA CONTACT WITH OTHER HOT TAP-WATER, INITIA 06/02/2017 EMELY ESTES Ot Y92.[address] [facility] [address] [facility] 06/02/2017 EMELY ESTES Ot Z79.82 [facility] (CURRENT) USE OF ASPIRIN 06/02/2017 EMELY ESTES Ot Z82.49 FAMILY HX OF ISCHEM HEART DIS AND OTH DI 06/02/2017 EMELY ESTES Ot Z87.09 PERSONAL HISTORY OF OTHER DISEASES OF 06/02/2017 EMELY ESTES Ot Z87.19 PERSONAL HISTORY OF OTHER DISEASES OF TH 06/04/2017 EMELY ESTES Ot E03.9 HYPOTHYROIDISM, UNSPECIFIED 06/04/2017 EMELY ESTES Ot F17.200 NICOTINE DEPENDENCE, UNSPECIFIED, UNCOMP 06/04/2017 EMELY ESTES Ot F41.9 ANXIETY DISORDER, UNSPECIFIED 06/04/2017 EMELY ESTES Ot I10 ESSENTIAL (PRIMARY) HYPERTENSION 06/04/2017 EMELY ESTES Ot I25.10 ATHSCL HEART DISEASE OF [place] CORONARY 06/04/2017 EMELY ESTES Ot I48.91 UNSPECIFIED ATRIAL FIBRILLATION 06/04/2017 EMELY ESTES Ot J43.9 EMPHYSEMA, UNSPECIFIED 06/04/2017 EMELY ESTES Ot K21.9 GASTRO-ESOPHAGEAL REFLUX DISEASE WITHOUT 06/04/2017 EMELY ESTES Ot K59.00 CONSTIPATION, UNSPECIFIED 06/04/2017 EMELY ESTES Ot S09.90XA UNSPECIFIED INJURY OF HEAD, INITIAL ENCO 06/04/2017 EMELY ESTES Ot T21.25XA BURN OF SECOND DEGREE OF BUTTOCK, INITIA 06/04/2017 EMELY ESTES Ot T22.211A BURN OF SECOND DEGREE OF RIGHT FOREARM, 06/04/2017 EMELY ESTES Ot T24.292A BURN 2ND DEG MUL SITES OF LEFT LOWER VILLARREAL 06/04/2017 EMELY ESTES Ot T31.0 TENORIO INVOLVING LESS THAN 10% OF BODY MALAVE 06/04/2017 EMELY ESTES Ot W01.0XXA FALL SAME LEV FROM SLIP/TRIP W/O STRIKE 06/04/2017 EMELY ESTES Ot X11.8XXA CONTACT WITH OTHER HOT TAP-WATER, INITIA 06/04/2017 EMELY ESTSE Ot Y92.[address] [facility] [address] IN [facility] 06/04/2017 EMELY ESTES Ot Z79.82 [facility] (CURRENT) USE OF ASPIRIN 06/04/2017 EMELY ESTES Ot Z82.49 FAMILY HX OF ISCHEM HEART DIS AND OTH DI 06/04/2017 EMELY ESTES Ot Z87.09 PERSONAL HISTORY OF OTHER DISEASES OF 06/04/2017 EMELY ESTES Ot Z87.19 PERSONAL HISTORY OF OTHER DISEASES OF 06/07/2017 Ot 458.9 HYPOTENSION NOS 06/07/2017 Ot 440.20 ATHEROSCLEROSIS [place] ARTERIES EXTREMIT 06/07/2017 Ot 587 RENAL SCLEROSIS NOS 06/07/2017 Ot 722.4 CERVICAL DISC DEGEN 06/07/2017 Ot 959.19 OTH INJURY OF OTHER SITES OF TRUNK 06/07/2017 Ot E000.8 OTHER EXTERNAL CAUSE STATUS 06/07/2017 Ot E849.0 ACCIDENT IN HOME 06/07/2017 Ot E888.9 FALL NOS 06/07/2017 Ot 253.6 NEUROHYPOPHYSIS DIS NEC 06/07/2017 Ot 722.52 LUMB/ LUMBOSAC DISC DEGEN 06/07/2017 Ot V54.17 AFTERCARE HEALING TRAUMATIC FX VERTEBRAE 06/07/2017 Ot 244.9 HYPOTHYROIDISM NOS 06/07/2017 Ot 253.6 NEUROHYPOPHYSIS DIS NEC 06/07/2017 Ot 253.6 NEUROHYPOPHYSIS DIS NEC 06/07/2017 Ot 305.1 TOBACCO USE DISORDER 06/07/2017 Ot 401.9 HYPERTENSION NOS 06/07/2017 Ot 428.0 CONGESTIVE HEART FAILURE NOS 06/07/2017 Ot 433.30 MULT BILTRAL ARTERY OCCLUSION WO CEREBRA 06/07/2017 Ot V76.12 OTH SCREEN MAMMO-MALIGN NEOPLASM OF [place] 06/07/2017 Ot 253.6 NEUROHYPOPHYSIS DIS NEC 06/07/2017 Ot 305.1 TOBACCO USE DISORDER 06/07/2017 Ot 496 CHR AIRWAY OBSTRUCT NEC 06/07/2017 Ot 786.05 SHORTNESS OF BREATH 06/07/2017 Ot 427.31 ATRIAL FIBRILLATION 06/07/2017 Ot 780.79 OTH MALAISE FATIGUE 06/07/2017 Ot 785.1 PALPITATIONS 06/07/2017 Ot 786.50 CHEST PAIN NOS 06/07/2017 Ot 786.05 SHORTNESS OF BREATH 06/07/2017 Ot 786.2 COUGH 06/07/2017 Ot 427.31 ATRIAL FIBRILLATION 06/07/2017 Ot 780.79 OTH MALAISE FATIGUE 06/07/2017 Ot 785.1 PALPITATIONS 06/07/2017 Ot 786.59 CHEST PAIN NEC 06/07/2017 LELE HUGHES MD Ot 305.1 TOBACCO USE DISORDER 06/07/2017 LELE HUGHES MD Ot 403.90 HYPTNSV CHR KID DIS, UNSPEC, W CHR KD ST 06/07/2017 LELE HUGHES MD Ot 496 CHR AIRWAY OBSTRUCT NEC 06/07/2017 LELE HUGHES MD Ot 585.9 CHRONIC KIDNEY DISEASE, UNSPECIFIED 06/07/2017 LELE HUGHES MD Ot 721.3 LUMBOSACRAL SPONDYLOSIS 06/07/2017 LELE HUGHES MD Ot 722.4 CERVICAL DISC DEGEN 06/07/2017 LELE HUGHES MD Ot 722.52 LUMB/LUMBOSAC DISC DEGEN 06/07/2017 LELE HUGHES MD Ot 729.1 MYALGIA AND MYOSITIS NOS 06/07/2017 LELE HUGHES MD Ot 785.1 PALPITATIONS 06/07/2017 LELE HUGHES MD, Ot V58.69 OTH MED,LT,CURRENT USE 06/07/2017 LELE HUGHES MD Ot 246.9 DISORDER OF THYROID NOS 06/07/2017 LELE HUGHES MD Ot 300.00 ANXIETY STATE NOS 06/07/2017 LELE HUGHES MD Ot 305.1 TOBACCO USE DISORDER 06/07/2017 LELE HUGHES MD Ot 477.9 ALLERGIC RHINITIS NOS 06/07/2017 LELE HUGHES MD Ot 721.3 LUMBOSACRAL SPONDYLOSIS 06/07/2017 LELE HUGHES MD Ot 722.4 CERVICAL DISC DEGEN 06/07/2017 LELE HUGHES MD Ot 722.52 LUMB/LUMBOSAC DISC DEGEN 06/07/2017 LELE HUGHES MD Ot 729.1 MYALGIA AND MYOSITIS NOS 06/07/2017 LELE HUGHES MD, Ot V58.69 OTH MED,LT,CURRENT USE 06/07/2017 ELLE HUGHES MD Ot 721.3 LUMBOSACRAL SPONDYLOSIS 06/07/2017 LELE HUGHES MD Ot 722.4 CERVICAL DISC DEGEN 06/07/2017 LELE HUGHES MD Ot 722.52 LUMB/LUMBOSAC DISC DEGEN 06/07/2017 LELE HUGHES MD Ot 729.1 MYALGIA AND MYOSITIS NOS 06/07/2017 LELE HUGHES MD Ot V58.69 OTH MED,LT,CURRENT USE 06/07/2017 LELE HUGHES MD Ot 721.3 LUMBOSACRAL SPONDYLOSIS 06/07/2017 LELE HUGHES MD Ot 722.4 CERVICAL DISC DEGEN 06/07/2017 LELE HUGHES MD Ot 722.52 LUMB/LUMBOSAC DISC DEGEN 06/07/2017 LELE HUGHES MD Ot 724.6 DISORDERS OF SACRUM 06/07/2017 LELE HUGHES MD Ot 729.1 MYALGIA AND MYOSITIS NOS 06/07/2017 LELE HUGHES MD Ot V58.69 OTH MED,LT,CURRENT USE 06/07/2017 RICHELLE LAU, SHAYY Burnett Ot V76.12 OTH SCREEN MAMMO-MALIGN NEOPLASM OF GUERO 06/07/2017 LELE HUGHES MD Ot 721.3 LUMBOSACRAL SPONDYLOSIS 06/07/2017 LELE HUGHES MD Ot 722.4 CERVICAL DISC DEGEN 06/07/2017 LELE HUGHES MD Ot 722.52 LUMB/LUMBOSAC DISC DEGEN 06/07/2017 LELE HUGHES MD Ot 724.6 DISORDERS OF SACRUM 06/07/2017 LELE HUGHES MD Ot 729.1 MYALGIA AND MYOSITIS NOS 06/07/2017 LELE HUGHES MD Ot V58.69 OTH MED,LT,CURRENT USE 06/07/2017 RICHELLE LAU, SHAYY Burnett Ot 253.6 NEUROHYPOPHYSIS DIS NEC 06/07/2017 SHAYY PEOPLES MD Ot 305.1 TOBACCO USE DISORDER 06/07/2017 RICHELLE LAU, SHAYY Burnett Ot 783.21 LOSS OF WEIGHT 06/07/2017 GAGAN LAU, RAYNA Ot V72.84 EXAM PRE-OPERATIVE NOS 06/07/2017 RICHELLE LAU, SHAYY Burnett Ot 789.30 ABDOMINAL/PELVIC SWELLING,MASS/LUMP UNSP 06/07/2017 RICHELLE LAU, SHAYY Burnett Ot 255.9 ADRENAL DISORDER N0S 06/07/2017 SHAYY PEOPLES MD Ot 789.30 ABDOMINAL/PELVIC SWELLING,MASS/LUMP UNSP 06/07/2017 LELE HUGHES MD Ot 338.4 CHRONIC PAIN SYNDROME 06/07/2017 LELE HUGHES MD Ot 721.3 LUMBOSACRAL SPONDYLOSIS 06/07/2017 LELE HUGHES MD Ot 722.52 LUMB/LUMBOSAC DISC DEGEN 06/07/2017 LELE HUGHES MD Ot 729.1 MYALGIA AND MYOSITIS NOS 06/07/2017 LELE HUGHES MD Ot V58.69 OTH MED,LT,CURRENT USE 06/07/2017 OBINNA PRASAD MD Ot 921.0 BLACK EYE NOS 06/07/2017 OBINNA PRASAD MD Ot 959.01 HEAD INJURY, NOS 06/07/2017 OBINNA PRASAD MD Ot E000.8 OTHER EXTERNAL CAUSE STATUS 06/07/2017 OBINNA PRASAD MD Ot E849.0 ACCIDENT IN HOME 06/07/2017 OBINNA PRASAD MD Ot E917.3 FURNIT W/O SUB FALL 06/07/2017 SAUL LAU, LELE Mera Ot 724.02 SPINAL STENOSIS, LUMBAR REG, W/OUT NEURO 06/07/2017 SAUL LAU, LELE Mera Ot 733.13 PATHOLOGIC FRACTURE, VERTEBRAE 06/07/2017 OBINNA PRASAD MD Ot 255.9 ADRENAL DISORDER N0S 06/07/2017 OBINNA PRASAD MD Ot 244.9 HYPOTHYROIDISM NOS 06/07/2017 OBINNA PRASAD MD Ot 401.9 HYPERTENSION NOS 06/07/2017 KURTIS LAU, JOVANA Leal Ot 388.70 OTALGIA NOS 06/07/2017 JOVANA HULL MD Ot 462 ACUTE PHARYNGITIS 06/07/2017 JOVANA HULL MD Ot 478.5 VOCAL CORD DISEASE NEC 06/07/2017 OBINNA PRASAD MD Ot J18.9 PNEUMONIA, UNSPECIFIED ORGANISM 06/07/2017 MERRITT VALENZUELA DO L Ot D35.00 BENIGN NEOPLASM OF UNSPECIFIED ADRENAL G 06/07/2017 OBINNA PRASAD MD Ot R91.8 OTHER NONSPECIFIC ABNORMAL FINDING OF SUSAN 06/07/2017 VERONICA LAU FACC, ALI FACP CCDS Ot D35.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 06/07/2017 VERONICA LAU FACC, ALI FACP CCDS Ot E87.1 HYPO-OSMOLALITY AND HYPONATREMIA 06/07/2017 VERONICA LAU FACC, ALI FACP CCDS Ot I10 ESSENTIAL (PRIMARY) HYPERTENSION 06/07/2017 VERONICA LAU FACC, ALI FACP CCDS Ot I48.0 PAROXYSMAL ATRIAL FIBRILLATION 06/07/2017 VERONICA LAU FACC, ALI FACP CCDS Ot I50.32 CHRONIC DIASTOLIC (CONGESTIVE) HEART FAROOQ 06/07/2017 VERONICA LAU FACC, ALI FACP CCDS Ot J43.8 OTHER EMPHYSEMA 06/07/2017 VERONICA LAU FACC, ALI FACP CCDS Ot Z72.0 TOBACCO USE 06/07/2017 NIVIA LAU, DIALLO Quinones Ot J44.9 CHRONIC OBSTRUCTIVE PULMONARY DISEASE, U 06/07/2017 BLAKE LAU, ADINA Mullins Ot R06.02 SHORTNESS OF BREATH 06/07/2017 NIVIA LAU, DIALLO S Ot J44.9 CHRONIC OBSTRUCTIVE PULMONARY DISEASE, U 06/13/2017 RONNY BENEDICT MD, Ot T21.25XA BURN OF SECOND DEGREE OF BUTTOCK, INITIA 06/13/2017 RONNY BENEDICT MD, Ot T24.212A BURN OF SECOND DEGREE OF LEFT THIGH, INI 06/13/2017 RONNY BENEDICT MD Ot T65.292A TOXIC EFFECT OF TOBACCO AND NICOTINE, SE 06/13/2017 RONNY BENEDICT MD Ot X12.XXXA CONTACT WITH OTHER HOT FLUIDS, INITIAL E 06/13/2017 RONNY BENEDICT MD Ot Y93.G3 ACTIVITY, COOKING AND BAKING 06/15/2017 RONNY BENEDICT MD, Ot T21.25XA BURN OF SECOND DEGREE OF BUTTOCK, INITIA 06/15/2017 RONNY BENEDICT MD, Ot T24.212A BURN OF SECOND DEGREE OF LEFT THIGH, INI 06/15/2017 RONNY BENEDICT MD, Ot T65.292A TOXIC EFFECT OF TOBACCO AND NICOTINE, SE 06/15/2017 RONNY BENEDICT MD Ot X12.XXXA CONTACT WITH OTHER HOT FLUIDS, INITIAL E 06/15/2017 RONNY BENEDICT MD Ot Y93.G3 ACTIVITY, COOKING AND BAKING 06/29/2017 RONNY BENEDICT MD, Ot T21.25XA BURN OF SECOND DEGREE OF BUTTOCK, INITIA 06/29/2017 RONNY BENEDICT MD Ot T24.212A BURN OF SECOND DEGREE OF LEFT THIGH, INI 06/29/2017 RONNY BENEDICT MD Ot T65.292A TOXIC EFFECT OF TOBACCO AND NICOTINE, SE 06/29/2017 RONNY BENEDICT MD Ot X12.XXXA CONTACT WITH OTHER HOT FLUIDS, INITIAL E 06/29/2017 RONNY BENEDICT MD Ot Y93.G3 ACTIVITY, COOKING AND BAKING 07/06/2017 ECTOR DORSEY APRN Ot T21.25XA BURN OF SECOND DEGREE OF BUTTOCK, INITIA 07/06/2017 ECTOR DORSEY APRN Ot T24.212A BURN OF SECOND DEGREE OF LEFT THIGH, INI 07/06/2017 ECTOR DORSEY APRN Ot T65.292A TOXIC EFFECT OF TOBACCO AND NICOTINE, SE 07/06/2017 ECTOR DORSEY APRN Ot X12.XXXA CONTACT WITH OTHER HOT FLUIDS, INITIAL E 07/06/2017 WILLIAN, ECTOR R DATA MANAGEMENT SPECIALIST Ot Y93.G3 ACTIVITY, COOKING AND BAKING 07/11/2017 RONNY BENEDICT MD Ot T21.25XA BURN OF SECOND DEGREE OF BUTTOCK, INITIA 07/11/2017 RONNY BENEDICT MD Ot T24.212A BURN OF SECOND DEGREE OF LEFT THIGH, INI 07/11/2017 RONNY BENEDICT MD Ot T65.292A TOXIC EFFECT OF TOBACCO AND NICOTINE, SE 07/11/2017 RONNY BENEDICT MD Ot X12.XXXA CONTACT WITH OTHER HOT FLUIDS, INITIAL E 07/11/2017 RONNY BENEDICT MD, Ot Y93.G3 ACTIVITY, COOKING AND BAKING 07/21/2017 OBINNA PRASAD MD Ot M81.0 AGE-RELATED OSTEOPOROSIS W/O CURRENT PAT 07/21/2017 OBINNA PRASAD MD Ot Z12.31 ENCNTR SCREEN MAMMOGRAM FOR MALIGNANT NE 07/21/2017 OBINNA PRASAD MD Ot M81.0 AGE-RELATED OSTEOPOROSIS W/O CURRENT PAT 07/21/2017 OBINNA PRASAD MD Ot Z12.31 ENCNTR SCREEN MAMMOGRAM FOR MALIGNANT NE 07/21/2017 OBINNA PRASAD MD Ot M81.0 AGE-RELATED OSTEOPOROSIS W/O CURRENT PAT 07/21/2017 OBINNA PRASAD MD Ot Z12.31 ENCNTR SCREEN MAMMOGRAM FOR MALIGNANT NE 07/21/2017 ECTOR DORSEY DATA MANAGEMENT SPECIALIST Ot T21.25XA BURN OF SECOND DEGREE OF BUTTOCK, INITIA 07/21/2017 ECTOR DORSEY APRN Ot T24.212A BURN OF SECOND DEGREE OF LEFT THIGH, INI 07/21/2017 ECTOR DORSEY APRN Ot T65.292A TOXIC EFFECT OF TOBACCO AND NICOTINE, SE 07/21/2017 ECTOR DORSEY APRN Ot X12.XXXA CONTACT WITH OTHER HOT FLUIDS, INITIAL E 07/21/2017 ECTOR DORSEY APRN Ot Y93.G3 ACTIVITY, COOKING AND BAKING 07/22/2017 OBINNA PRASAD MD Ot Z12.31 ENCNTR SCREEN MAMMOGRAM FOR MALIGNANT NE 08/11/2017 OBINNA PRASAD MD Ot M81.0 AGE-RELATED OSTEOPOROSIS W/O CURRENT PAT 08/11/2017 OBINNA PRASAD MD Ot Z12.31 ENCNTR SCREEN MAMMOGRAM FOR MALIGNANT NE 08/11/2017 OBINNA PRASAD MD Ot M81.0 AGE-RELATED OSTEOPOROSIS W/O CURRENT PAT 08/11/2017 OBINNA PRASAD MD Ot Z12.31 ENCNTR SCREEN MAMMOGRAM FOR MALIGNANT NE 09/08/2017 HEARNDON DO, JOVANA L Ot M54.16 RADICULOPATHY, LUMBAR REGION 09/13/2017 HEARNDON DO, JOVANA L Ot M54.16 RADICULOPATHY, LUMBAR REGION 09/14/2017 VALENZUELA DO, MERRITT L Ot E27.8 OTHER SPECIFIED DISORDERS OF ADRENAL GLA 09/14/2017 VALENZUELA DO, MERRITT L Ot E55.9 VITAMIN D DEFICIENCY, UNSPECIFIED 09/14/2017 VALENZUELA DO, MERRITT L Ot E87.1 HYPO-OSMOLALITY AND HYPONATREMIA 09/15/2017 HEARNDON DO, JOVANA L Ot M54.16 RADICULOPATHY, LUMBAR REGION 09/23/2017 VALENZUELA DO, MERRITT L Ot E27.8 OTHER SPECIFIED DISORDERS OF ADRENAL GLA 09/23/2017 VALENZUELA DO, MERRITT L Ot E55.9 VITAMIN D DEFICIENCY, UNSPECIFIED 09/23/2017 VALENZUELA DO, MERRITT L Ot E87.1 HYPO-OSMOLALITY AND HYPONATREMIA 09/29/2017 OBINNA PRASAD MD Ot M81.0 AGE-RELATED OSTEOPOROSIS W/O CURRENT PAT 09/29/2017 OBINNA PRASAD MD Ot Z12.31 ENCNTR SCREEN MAMMOGRAM FOR MALIGNANT NE 10/11/2017 OBINNA PRASAD MD Ot M81.0 AGE-RELATED OSTEOPOROSIS W/O CURRENT PAT 10/11/2017 OBINNA PRASAD MD Ot Z12.31 ENCNTR SCREEN MAMMOGRAM FOR MALIGNANT NE 10/25/2017 Ot 427.31 ATRIAL FIBRILLATION 10/25/2017 Ot 780.79 OTH MALAISE FATIGUE 10/25/2017 Ot 785.1 PALPITATIONS 10/25/2017 Ot 786.50 CHEST PAIN NOS 02/23/2018 Ot 458.9 HYPOTENSION NOS 02/23/2018 Ot 253.6 NEUROHYPOPHYSIS DIS NEC 02/23/2018 Ot 305.1 TOBACCO USE DISORDER 02/23/2018 Ot 401.9 HYPERTENSION NOS 02/23/2018 Ot 428.0 CONGESTIVE HEART FAILURE NOS 02/23/2018 Ot 433.30 MULT BILTRAL ARTERY OCCLUSION WO CEREBRA 02/23/2018 Ot V76.12 OTH SCREEN MAMMO-MALIGN NEOPLASM OF GUERO 02/23/2018 Ot 253.6 NEUROHYPOPHYSIS DIS NEC 02/23/2018 Ot 305.1 TOBACCO USE DISORDER 02/23/2018 Ot 496 CHR AIRWAY OBSTRUCT NEC 02/23/2018 Ot 786.05 SHORTNESS OF BREATH 02/23/2018 Ot 427.31 ATRIAL FIBRILLATION 02/23/2018 Ot 780.79 OTH MALAISE FATIGUE 02/23/2018 Ot 785.1 PALPITATIONS 02/23/2018 Ot 786.50 CHEST PAIN NOS 02/23/2018 Ot 786.05 SHORTNESS OF BREATH 02/23/2018 Ot 786.2 COUGH 02/23/2018 Ot 427.31 ATRIAL FIBRILLATION 02/23/2018 Ot 780.79 OTH MALAISE FATIGUE 02/23/2018 Ot 785.1 PALPITATIONS 02/23/2018 Ot 786.59 CHEST PAIN NEC 02/23/2018 LELE HUGHES MD Ot 305.1 TOBACCO USE DISORDER 02/23/2018 LELE HUGHES MD Ot 403.90 HYPTNSV CHR KID DIS, UNSPEC, W CHR KD ST 02/23/2018 LELE HUGHES MD Ot 496 CHR AIRWAY OBSTRUCT NEC 02/23/2018 LELE HUGHES MD Ot 585.9 CHRONIC KIDNEY DISEASE, UNSPECIFIED 02/23/2018 LELE HUGHES MD Ot 721.3 LUMBOSACRAL SPONDYLOSIS 02/23/2018 LELE HUGHES MD Ot 722.4 CERVICAL DISC DEGEN 02/23/2018 LELE HUGHES MD Ot 722.52 LUMB/LUMBOSAC DISC DEGEN 02/23/2018 LELE HUGHES MD Ot 729.1 MYALGIA AND MYOSITIS NOS 02/23/2018 LELE HUGHES MD Ot 785.1 PALPITATIONS 02/23/2018 LELE HUGHES MD Ot V58.69 OT MED,LT,CURRENT USE 02/23/2018 LELE HUGHES MD Ot 246.9 DISORDER OF THYROID NOS 02/23/2018 LELE HUGHES MD Ot 300.00 ANXIETY STATE NOS 02/23/2018 LELE HUGHES MD Ot 305.1 TOBACCO USE DISORDER 02/23/2018 LELE HUGHES MD Ot 477.9 ALLERGIC RHINITIS NOS 02/23/2018 LELE HUGHES MD Ot 721.3 LUMBOSACRAL SPONDYLOSIS 02/23/2018 LELE HUGHES MD Ot 722.4 CERVICAL DISC DEGEN 02/23/2018 LELE HUGHES MD Ot 722.52 LUMB/LUMBOSAC DISC DEGEN 02/23/2018 LELE HUGHES MD Ot 729.1 MYALGIA AND MYOSITIS NOS 02/23/2018 LELE HUGHES MD Ot V58.69 OTH MED,LT,CURRENT USE 02/23/2018 LELE HUGHES MD Ot 721.3 LUMBOSACRAL SPONDYLOSIS 02/23/2018 LELE HUGHES MD Ot 722.4 CERVICAL DISC DEGEN 02/23/2018 LELE HUGHES MD Ot 722.52 LUMB/LUMBOSAC DISC DEGEN 02/23/2018 LELE HUGHES MD Ot 729.1 MYALGIA AND MYOSITIS NOS 02/23/2018 LELE HUGHES MD Ot V58.69 OTH MED,LT,CURRENT USE 02/23/2018 LELE HUGHES MD Ot 721.3 LUMBOSACRAL SPONDYLOSIS 02/23/2018 LELE HUGHES MD Ot 722.4 CERVICAL DISC DEGEN 02/23/2018 LELE HUGHES MD Ot 722.52 LUMB/LUMBOSAC DISC DEGEN 02/23/2018 LELE HUGHES MD Ot 724.6 DISORDERS OF SACRUM 02/23/2018 LELE HUGHES MD Ot 729.1 MYALGIA AND MYOSITIS NOS 02/23/2018 LELE HUGHES MD Ot V58.69 OTH MED,LT,CURRENT USE 02/23/2018 RICHELLE LAU, SHAYY Burnett Ot V76.12 OTH SCREEN MAMMO-MALIGN NEOPLASM OF GUERO 02/23/2018 LELE HUGHES MD Ot 721.3 LUMBOSACRAL SPONDYLOSIS 02/23/2018 LELE HUGHES MD Ot 722.4 CERVICAL DISC DEGEN 02/23/2018 LELE HUGHES MD Ot 722.52 LUMB/LUMBOSAC DISC DEGEN 02/23/2018 LELE HUGHES MD Ot 724.6 DISORDERS OF SACRUM 02/23/2018 LELE HUGHES MD Ot 729.1 MYALGIA AND MYOSITIS NOS 02/23/2018 LELE HUGHES MD Ot V58.69 OTH MED,LT,CURRENT USE 02/23/2018 RICHELLE LAU, SHAYY Burnett Ot 253.6 NEUROHYPOPHYSIS DIS NEC 02/23/2018 SHAYY PEOPLES MD Ot 305.1 TOBACCO USE DISORDER 02/23/2018 SHAYY PEOPLES MD Ot 783.21 LOSS OF WEIGHT 02/23/2018 GAGAN LAU, RAYNA Ot V72.84 EXAM PRE-OPERATIVE NOS 02/23/2018 SHAYY PEOPLES MD Ot 789.30 ABDOMINAL/PELVIC SWELLING,MASS/LUMP UNSP 02/23/2018 SHAYY PEOPLES MD Ot 255.9 ADRENAL DISORDER N0S 02/23/2018 SHAYY PEOPLES MD Ot 789.30 ABDOMINAL/PELVIC SWELLING,MASS/LUMP UNSP 02/23/2018 LELE HUGHES MD Ot 338.4 CHRONIC PAIN SYNDROME 02/23/2018 LELE HUGHES MD Ot 721.3 LUMBOSACRAL SPONDYLOSIS 02/23/2018 LELE HUGHES MD Ot 722.52 LUMB/LUMBOSAC DISC DEGEN 02/23/2018 LELE HUGHES MD Ot 729.1 MYALGIA AND MYOSITIS NOS 02/23/2018 LELE HUGHES MD Ot V58.69 OTH MED,LT,CURRENT USE 02/23/2018 OBINNA PRASAD MD Ot 921.0 BLACK EYE NOS 02/23/2018 OBINNA PRASAD MD Ot 959.01 HEAD INJURY, NOS 02/23/2018 OBINNA PRASAD MD Ot E000.8 OTHER EXTERNAL CAUSE STATUS 02/23/2018 OBINNA PRASAD MD Ot E849.0 ACCIDENT IN HOME 02/23/2018 OBINNA PRASAD MD Ot E917.3 FURNIT W/O SUB FALL 02/23/2018 LELE HUGHES MD Ot 724.02 SPINAL STENOSIS, LUMBAR REG, W/OUT NEURO 02/23/2018 LELE HUGHES MD Ot 733.13 PATHOLOGIC FRACTURE, VERTEBRAE 02/23/2018 OBINNA PRASAD MD Ot 255.9 ADRENAL DISORDER N0S 02/23/2018 SHANICE MD, OBINNA N Ot 244.9 HYPOTHYROIDISM NOS 02/23/2018 OBINNA PRASAD MD Ot 401.9 HYPERTENSION NOS 02/23/2018 JOVANA HULL MD Ot 388.70 OTALGIA NOS 02/23/2018 JOVANA HULL MD Ot 462 ACUTE PHARYNGITIS 02/23/2018 JOVANA HULL MD Ot 478.5 VOCAL CORD DISEASE NEC 02/23/2018 OBINNA PRASAD MD Ot J18.9 PNEUMONIA, UNSPECIFIED ORGANISM 02/23/2018 MERRITT VALENZUELA DO Ot D35.00 BENIGN NEOPLASM OF UNSPECIFIED ADRENAL G 02/23/2018 OBINNA PRASAD MD Ot R91.8 OTHER NONSPECIFIC ABNORMAL FINDING OF SUSAN 02/23/2018 VERONICA LAU FACC, ALI FACP CCDS Ot D35.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 02/23/2018 VERONICA LAU FACC, ALI FACP CCDS Ot E87.1 HYPO-OSMOLALITY AND HYPONATREMIA 02/23/2018 VERONICA LAU FACC, ALI FACP CCDS Ot I10 ESSENTIAL (PRIMARY) HYPERTENSION 02/23/2018 VERONICA LAU FACC, ALI FACP CCDS Ot I48.0 PAROXYSMAL ATRIAL FIBRILLATION 02/23/2018 VERONICA LAU FACC, ALI FACP CCDS Ot I50.32 CHRONIC DIASTOLIC (CONGESTIVE) HEART FAROOQ 02/23/2018 VERONICA LAU FACC, ALI FACP CCDS Ot J43.8 OTHER EMPHYSEMA 02/23/2018 VERONICA LAU FAC, ALI FACP CCDS Ot Z72.0 TOBACCO USE 02/23/2018 DIALLO GONZÁLES MD S Ot J44.9 CHRONIC OBSTRUCTIVE PULMONARY DISEASE, U 02/23/2018 BLAKE LAU, ADINA R Ot R06.02 SHORTNESS OF BREATH 02/23/2018 DIALLO GONZÁLES MD S Ot J44.9 CHRONIC OBSTRUCTIVE PULMONARY DISEASE, U 02/23/2018 RONNY BENEDICT MD Ot T21.25XA BURN OF SECOND DEGREE OF BUTTOCK, INITIA 02/23/2018 RONNY BENEDICT MD Ot T24.212A BURN OF SECOND DEGREE OF LEFT THIGH, INI 02/23/2018 RONNY BENEDICT MD Ot T65.292A TOXIC EFFECT OF TOBACCO AND NICOTINE, SE 02/23/2018 RONNY BENEDICT MD Ot X12.XXXA CONTACT WITH OTHER HOT FLUIDS, INITIAL E 02/23/2018 MARICHUY MD, RONNY D Ot Y93.G3 ACTIVITY, COOKING AND BAKING 02/23/2018 ECTOR DORSEY APRN Ot T21.25XA BURN OF SECOND DEGREE OF BUTTOCK, INITIA 02/23/2018 ECTOR DORSEY APRN Ot T24.212A BURN OF SECOND DEGREE OF LEFT THIGH, INI 02/23/2018 ECTOR DORSEY APRN Ot T65.292A TOXIC EFFECT OF TOBACCO AND NICOTINE, SE 02/23/2018 ECTOR DORSEY APRN Ot X12.XXXA CONTACT WITH OTHER HOT FLUIDS, INITIAL E 02/23/2018 ECTOR DORSEY APRN Ot Y93.G3 ACTIVITY, COOKING AND BAKING 02/23/2018 SHANICE LAU, OBINNA Corral Ot M81.0 AGE-RELATED OSTEOPOROSIS W/O CURRENT PAT 02/23/2018 SHANICE LAU, OBINNA Corral Ot Z12.31 ENCNTR SCREEN MAMMOGRAM FOR MALIGNANT NE 02/23/2018 OBINNA PRASAD MD, Ot Z12.31 ENCNTR SCREEN MAMMOGRAM FOR MALIGNANT NE 02/23/2018 ZAKIA VALENZUELA DOISON Lex Ot E27.8 OTHER SPECIFIED DISORDERS OF ADRENAL GLA 02/23/2018 ZAKIA VALENZUELA DOISON Lex Ot E55.9 VITAMIN D DEFICIENCY, UNSPECIFIED 02/23/2018 MERRITT VALENZUELA DO Ot E87.1 HYPO-OSMOLALITY AND HYPONATREMIA 02/23/2018 Ot 458.9 HYPOTENSION NOS 02/23/2018 NIVIA LAU, DIALLO S Ot J44.9 CHRONIC OBSTRUCTIVE PULMONARY DISEASE, U 02/23/2018 GAGAN LAU, RAYNA Ot Z01.818 ENCOUNTER FOR OTHER PREPROCEDURAL EXAMIN 03/01/2018 Ot 458.9 HYPOTENSION NOS 03/01/2018 Ot 253.6 NEUROHYPOPHYSIS DIS NEC 03/01/2018 Ot 305.1 TOBACCO USE DISORDER 03/01/2018 Ot 401.9 HYPERTENSION NOS 03/01/2018 Ot 428.0 CONGESTIVE HEART FAILURE NOS 03/01/2018 Ot 433.30 MULT BILTRAL ARTERY OCCLUSION WO CEREBRA 03/01/2018 Ot V76.12 OTH SCREEN MAMMO-MALIGN NEOPLASM OF GUERO 03/01/2018 Ot 253.6 NEUROHYPOPHYSIS DIS NEC 03/01/2018 Ot 305.1 TOBACCO USE DISORDER 03/01/2018 Ot 496 CHR AIRWAY OBSTRUCT NEC 03/01/2018 Ot 786.05 SHORTNESS OF BREATH 03/01/2018 Ot 427.31 ATRIAL FIBRILLATION 03/01/2018 Ot 780.79 OTH MALAISE FATIGUE 03/01/2018 Ot 785.1 PALPITATIONS 03/01/2018 Ot 786.50 CHEST PAIN NOS 03/01/2018 Ot 786.05 SHORTNESS OF BREATH 03/01/2018 Ot 786.2 COUGH 03/01/2018 Ot 427.31 ATRIAL FIBRILLATION 03/01/2018 Ot 780.79 OTH MALAISE FATIGUE 03/01/2018 Ot 785.1 PALPITATIONS 03/01/2018 Ot 786.59 CHEST PAIN NEC 03/01/2018 LELE HUGHES MD Ot 305.1 TOBACCO USE DISORDER 03/01/2018 LELE HUGHES MD Ot 403.90 HYPTNSV CHR KID DIS, UNSPEC, W CHR KD ST 03/01/2018 LELE HUGHES MD Ot 496 CHR AIRWAY OBSTRUCT NEC 03/01/2018 LELE HUGHES MD Ot 585.9 CHRONIC KIDNEY DISEASE, UNSPECIFIED 03/01/2018 LELE HUGHES MD Ot 721.3 LUMBOSACRAL SPONDYLOSIS 03/01/2018 LELE HUGHES MD Ot 722.4 CERVICAL DISC DEGEN 03/01/2018 LELE HUGHES MD Ot 722.52 LUMB/LUMBOSAC DISC DEGEN 03/01/2018 LELE HUGHES MD Ot 729.1 MYALGIA AND MYOSITIS NOS 03/01/2018 LELE HUGHES MD Ot 785.1 PALPITATIONS 03/01/2018 LELE HUGHES MD Ot V58.69 OT MED,LT,CURRENT USE 03/01/2018 LELE HUGHES MD Ot 246.9 DISORDER OF THYROID NOS 03/01/2018 LELE HUGHES MD Ot 300.00 ANXIETY STATE NOS 03/01/2018 LELE HUGHES MD Ot 305.1 TOBACCO USE DISORDER 03/01/2018 LELE HUGHES MD Ot 477.9 ALLERGIC RHINITIS NOS 03/01/2018 LELE HUGHES MD Ot 721.3 LUMBOSACRAL SPONDYLOSIS 03/01/2018 LELE HUGHES MD Ot 722.4 CERVICAL DISC DEGEN 03/01/2018 LELE HUGHES MD Ot 722.52 LUMB/LUMBOSAC DISC DEGEN 03/01/2018 LELE HUGHES MD Ot 729.1 MYALGIA AND MYOSITIS NOS 03/01/2018 LELE HUGHES MD Ot V58.69 OTH MED,LT,CURRENT USE 03/01/2018 LELE HUGHES MD Ot 721.3 LUMBOSACRAL SPONDYLOSIS 03/01/2018 LELE HUGHES MD Ot 722.4 CERVICAL DISC DEGEN 03/01/2018 LELE HUGHES MD Ot 722.52 LUMB/LUMBOSAC DISC DEGEN 03/01/2018 LELE HUGHES MD Ot 729.1 MYALGIA AND MYOSITIS NOS 03/01/2018 LELE HUGHES MD, Ot V58.69 OTH MED,LT,CURRENT USE 03/01/2018 LELE HUGHES MD Ot 721.3 LUMBOSACRAL SPONDYLOSIS 03/01/2018 LELE HUGHES MD Ot 722.4 CERVICAL DISC DEGEN 03/01/2018 LELE HUGHES MD Ot 722.52 LUMB/LUMBOSAC DISC DEGEN 03/01/2018 LELE HUGHES MD Ot 724.6 DISORDERS OF SACRUM 03/01/2018 LELE HUGHES MD Ot 729.1 MYALGIA AND MYOSITIS NOS 03/01/2018 LELE HUGHES MD, Ot V58.69 OTH MED,LT,CURRENT USE 03/01/2018 SHAYY PEOPLES MD Ot V76.12 OT SCREEN MAMMO-MALIGN NEOPLASM OF GUERO 03/01/2018 LELE HUGHES MD Ot 721.3 LUMBOSACRAL SPONDYLOSIS 03/01/2018 LELE HUGHES MD Ot 722.4 CERVICAL DISC DEGEN 03/01/2018 LELE HUGHES MD Ot 722.52 LUMB/LUMBOSAC DISC DEGEN 03/01/2018 LELE HUGHES MD Ot 724.6 DISORDERS OF SACRUM 03/01/2018 LELE HUGHES MD Ot 729.1 MYALGIA AND MYOSITIS NOS 03/01/2018 LELE HUGHES MD, Ot V58.69 OTH MED,LT,CURRENT USE 03/01/2018 SHAYY PEOPLES MD Ot 253.6 NEUROHYPOPHYSIS DIS NEC 03/01/2018 SHAYY PEOPLES MD Ot 305.1 TOBACCO USE DISORDER 03/01/2018 SHAYY PEOPLES MD L Ot 783.21 LOSS OF WEIGHT 03/01/2018 GAGAN LAU, ANGELINEAAKI Ot V72.84 EXAM PRE-OPERATIVE NOS 03/01/2018 RICHELLE LAU, SHAYY Burnett Ot 789.30 ABDOMINAL/PELVIC SWELLING,MASS/LUMP UNSP 03/01/2018 SHAYY PEOPLES MD Ot 255.9 ADRENAL DISORDER N0S 03/01/2018 SHAYY PEOPLES MD Ot 789.30 ABDOMINAL/PELVIC SWELLING,MASS/LUMP UNSP 03/01/2018 LELE HUGHES MD Ot 338.4 CHRONIC PAIN SYNDROME 03/01/2018 LELE HUGHES MD Ot 721.3 LUMBOSACRAL SPONDYLOSIS 03/01/2018 LELE HUGHES MD Ot 722.52 LUMB/LUMBOSAC DISC DEGEN 03/01/2018 LELE HUGHES MD Ot 729.1 MYALGIA AND MYOSITIS NOS 03/01/2018 LELE HUGHES MD Ot V58.69 OTH MED,LT,CURRENT USE 03/01/2018 OBINNA PRASAD MD Ot 921.0 BLACK EYE NOS 03/01/2018 OBINNA PRASAD MD Ot 959.01 HEAD INJURY, NOS 03/01/2018 OBINNA PRASAD MD Ot E000.8 OTHER EXTERNAL CAUSE STATUS 03/01/2018 OBINNA PRASAD MD Ot E849.0 ACCIDENT IN HOME 03/01/2018 OBINNA PRASAD MD Ot E917.3 FURNIT W/O SUB FALL 03/01/2018 LELE HUGHES MD Ot 724.02 SPINAL STENOSIS, LUMBAR REG, W/OUT NEURO 03/01/2018 LELE HUGHES MD Ot 733.13 PATHOLOGIC FRACTURE, VERTEBRAE 03/01/2018 OBINNA PRASAD MD Ot 255.9 ADRENAL DISORDER N0S 03/01/2018 OBINNA PRASAD MD Ot 244.9 HYPOTHYROIDISM NOS 03/01/2018 OBINNA PRASAD MD Ot 401.9 HYPERTENSION NOS 03/01/2018 JOVANA HULL MD Ot 388.70 OTALGIA NOS 03/01/2018 JOVANA HULL MD Ot 462 ACUTE PHARYNGITIS 03/01/2018 JOVANA HULL MD Ot 478.5 VOCAL CORD DISEASE NEC 03/01/2018 OBINNA PRASAD MD Ot J18.9 PNEUMONIA, UNSPECIFIED ORGANISM 03/01/2018 BIANCA DO, MERRITT L Ot D35.00 BENIGN NEOPLASM OF UNSPECIFIED ADRENAL G 03/01/2018 OBINNA PRASAD MD Ot R91.8 OTHER NONSPECIFIC ABNORMAL FINDING OF [place] 03/01/2018 VERONICA LAU FACC, ALI FACP CCDS Ot D35.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 03/01/2018 VERONICA LAU FACC, ALI FACP CCDS Ot E87.1 HYPO-OSMOLALITY AND HYPONATREMIA 03/01/2018 VERONICA LAU FACC, ALI FACP CCDS Ot I10 ESSENTIAL (PRIMARY) HYPERTENSION 03/01/2018 VERONICA LAU FACC, ALI FACP CCDS Ot I48.0 PAROXYSMAL ATRIAL FIBRILLATION 03/01/2018 VERONICA LAU FACC, ALI FACP CCDS Ot I50.32 CHRONIC DIASTOLIC (CONGESTIVE) HEART FAROOQ 03/01/2018 VERONICA LAU FACC, ALI FACP CCDS Ot J43.8 OTHER EMPHYSEMA 03/01/2018 VERONICA LAU FACC, ALI FACP CCDS Ot Z72.0 TOBACCO USE 03/01/2018 NIVIA LAU, DIALLO S Ot J44.9 CHRONIC OBSTRUCTIVE PULMONARY DISEASE, U 03/01/2018 BLAKE LAU, ADINA R Ot R06.02 SHORTNESS OF BREATH 03/01/2018 DIALLO GONZÁLES MD S Ot J44.9 CHRONIC OBSTRUCTIVE PULMONARY DISEASE, U 03/01/2018 RONNY BENEDICT MD Ot T21.25XA BURN OF SECOND DEGREE OF BUTTOCK, INITIA 03/01/2018 RONNY BENEDICT MD Ot T24.212A BURN OF SECOND DEGREE OF LEFT THIGH, INI 03/01/2018 RONNY BENEDICT MD Ot T65.292A TOXIC EFFECT OF TOBACCO AND NICOTINE, SE 03/01/2018 RONNY BENEDICT MD Ot X12.XXXA CONTACT WITH OTHER HOT FLUIDS, INITIAL E 03/01/2018 RONNY BENEDICT MD Ot Y93.G3 ACTIVITY, COOKING AND BAKING 03/01/2018 ECTOR DORSEY APRN Ot T21.25XA BURN OF SECOND DEGREE OF BUTTOCK, INITIA 03/01/2018 ECTOR DORSEY APRN Ot T24.212A BURN OF SECOND DEGREE OF LEFT THIGH, INI 03/01/2018 ECTOR DORSEY APRN Ot T65.292A TOXIC EFFECT OF TOBACCO AND NICOTINE, SE 03/01/2018 ECTOR DORSEY APRN Ot X12.XXXA CONTACT WITH OTHER HOT FLUIDS, INITIAL E 03/01/2018 ECTOR DORSEY APRN Ot Y93.G3 ACTIVITY, COOKING AND BAKING 03/01/2018 OBINNA PRASAD MD, Ot M81.0 AGE-RELATED OSTEOPOROSIS W/O CURRENT PAT 03/01/2018 OBINNA PRASAD MD, Ot Z12.31 ENCNTR SCREEN MAMMOGRAM FOR MALIGNANT NE 03/01/2018 OBINNA PRASAD MD, Ot Z12.31 ENCNTR SCREEN MAMMOGRAM FOR MALIGNANT NE 03/01/2018 MERRITT VALENZUELA DO Ot E27.8 OTHER SPECIFIED DISORDERS OF ADRENAL GLA 03/01/2018 MERRITT VALENZUELA DO Ot E55.9 VITAMIN D DEFICIENCY, UNSPECIFIED 03/01/2018 MERRITT VALENZUELA DO Ot E87.1 HYPO-OSMOLALITY AND HYPONATREMIA 03/01/2018 RAYNA FARAH MD, Ot D12.5 BENIGN NEOPLASM OF SIGMOID COLON 03/01/2018 RAYNA FARAH MD, Ot I11.0 HYPERTENSIVE HEART DISEASE WITH HEART FA 03/01/2018 RAYNA FARAH MD, Ot I25.10 ATHSCL HEART DISEASE OF [place] CORONARY 03/01/2018 RAYNA FARAH MD, Ot I48.91 UNSPECIFIED ATRIAL FIBRILLATION 03/01/2018 RAYNA FARAH MD, Ot I50.9 HEART FAILURE, UNSPECIFIED 03/01/2018 RAYNA FARAH MD, Ot J43.9 EMPHYSEMA, UNSPECIFIED 03/01/2018 RAYNA FARAH MD, Ot K21.0 GASTRO-ESOPHAGEAL REFLUX DISEASE WITH ES 03/01/2018 RAYNA FARAH MD, Ot K29.50 UNSPECIFIED CHRONIC GASTRITIS WITHOUT BL 03/01/2018 RAYNA FARAH MD, Ot K44.9 DIAPHRAGMATIC HERNIA WITHOUT OBSTRUCTION 03/01/2018 RAYNA FARAH MD, Ot K64.1 SECOND DEGREE HEMORRHOIDS 03/01/2018 RAYNA FARAH MD, Ot R19.5 OTHER FECAL ABNORMALITIES 03/01/2018 RAYNA FARAH MD, Ot Z79.01 ACADEMIC DEAN (CURRENT) USE OF ANTICOAGULANT 03/01/2018 RAYNA FARAH MD, Ot Z79.899 OTHER [facility] (CURRENT) DRUG THERAPY 03/01/2018 RAYNA FARAH MD Ot 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 STATUS 03/07/2018 RAYNA FARAH MD, Ot D12.5 BENIGN NEOPLASM OF SIGMOID COLON 03/07/2018 RAYNA FARAH MD Ot I11.0 HYPERTENSIVE HEART DISEASE WITH HEART FA 03/07/2018 RAYNA FARAH MD Ot I25.10 ATHSCL HEART DISEASE OF [place] CORONARY 03/07/2018 RAYNA FARAH MD Ot I48.91 UNSPECIFIED ATRIAL FIBRILLATION 03/07/2018 RAYNA FARAH MD Ot I50.9 HEART FAILURE, UNSPECIFIED 03/07/2018 RAYNA FARAH MD, Ot J43.9 EMPHYSEMA, UNSPECIFIED 03/07/2018 RAYNA FARAH MD Ot K21.0 GASTRO-ESOPHAGEAL REFLUX DISEASE WITH ES 03/07/2018 RAYNA FARAH MD Ot K29.50 UNSPECIFIED CHRONIC GASTRITIS WITHOUT BL 03/07/2018 RAYNA FARAH MD Ot K44.9 DIAPHRAGMATIC HERNIA WITHOUT OBSTRUCTION 03/07/2018 RAYNA FARAH MD Ot K64.1 SECOND DEGREE HEMORRHOIDS 03/07/2018 RAYNA FARAH MD Ot R19.5 OTHER FECAL ABNORMALITIES 03/07/2018 RAYNA FARAH MD Ot Z79.01 [facility] (CURRENT) USE OF ANTICOAGULANT 03/07/2018 RAYNA FARAH MD Ot Z79.899 OTHER [facility] (CURRENT) DRUG THERAPY 03/07/2018 RAYNA FARAH MD, Ot 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 STATUS 03/09/2018 RAYNA FARAH MD Ot D12.5 BENIGN NEOPLASM OF SIGMOID COLON 03/09/2018 RAYNA FARAH MD Ot I11.0 HYPERTENSIVE HEART DISEASE WITH HEART FA 03/09/2018 RAYNA FARAH MD, Ot I25.10 ATHSCL HEART DISEASE OF [place] CORONARY 03/09/2018 RAYNA FARAH MD Ot I48.91 UNSPECIFIED ATRIAL FIBRILLATION 03/09/2018 RAYNA FARAH MD Ot I50.9 HEART FAILURE, UNSPECIFIED 03/09/2018 RAYNA FARAH MD Ot J43.9 EMPHYSEMA, UNSPECIFIED 03/09/2018 RAYNA FARAH MD Ot K21.0 GASTRO-ESOPHAGEAL REFLUX DISEASE WITH ES 03/09/2018 RAYNA FARAH MD, Ot K29.50 UNSPECIFIED CHRONIC GASTRITIS WITHOUT BL 03/09/2018 RAYNA FARAH MD, Ot K44.9 DIAPHRAGMATIC HERNIA WITHOUT OBSTRUCTION 03/09/2018 RAYNA FARAH MD, Ot K64.1 SECOND DEGREE HEMORRHOIDS 03/09/2018 RAYNA FARAH MD, Ot R19.5 OTHER FECAL ABNORMALITIES 03/09/2018 RAYNA FARAH MD, Ot Z79.01 [facility] (CURRENT) USE OF ANTICOAGULANT 03/09/2018 RAYNA FARAH MD, Ot Z79.899 OTHER [facility] (CURRENT) DRUG THERAPY 03/09/2018 RAYNA FARAH MD, Ot 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 STATUS 06/10/2018 JOVANA HULL MD Ot I65.22 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 06/10/2018 JOVANA HULL MD Ot J38.7 OTHER DISEASES OF [place] 06/10/2018 JOVANA HULL MD Ot R59.0 LOCALIZED ENLARGED LYMPH NODES 06/21/2018 JOVANA HULL MD Ot I65.22 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 06/21/2018 JOVANA HULL MD Ot J38.7 OTHER DISEASES OF [place] 06/21/2018 JOVANA HULL MD Ot R59.0 LOCALIZED ENLARGED LYMPH NODES 06/26/2018 VERONICA LAU [facility] CCD[facility] Ot I11.9 HYPERTENSIVE HEART DISEASE WITHOUT HEART 06/26/2018 VERONICA LAU FACC, TERRY MARIEP CCDS Ot I25.10 ATHSCL HEART DISEASE OF [place] CORONARY 06/26/2018 VERONICA LAU [facility], TERRY MARIEP CCDS Ot I48.0 PAROXYSMAL ATRIAL FIBRILLATION Procedures There is no data. Results Test Result Range Urinalysis, Complete - 07/29/16 12:35 Specific [place] 1.009 1.005-1.030 pH 7.0 5.0-7.5 Urine-Color Yellow Yellow Appearance Clear Clear WBC Esterase Trace Negative Protein Negative Negative/Trace Glucose Negative Negative Ketones Negative Negative Occult Blood Negative Negative Bilirubin Negative Negative Urobilinogen,Semi-Qn 0.2 mg/dL 0.2-1.0 Nitrite, Urine Negative Negative Microscopic Examination See below: Microscopic Examination - 07/29/16 12:35 WBC 0-5 /hpf 0 - 5 RBC 0-2 /hpf 0 - 2 Epithelial Cells (non renal) 0-10 /hpf 0 - 10 Mucus Threads Present Not Estab. Bacteria None seen None seen/Few Complete blood count (CBC) with automated white blood cell (WBC) differential - 09/13/16 00:35 Blood leukocytes automated count (number/volume) 10.0 10*3/uL 4.3-11.0 Blood erythrocytes automated count (number/volume) 5.33 10*6/uL 4.35-5.85 Venous blood hemoglobin measurement (mass/volume) 15.0 g/dL 11.5-16.0 Blood hematocrit (volume fraction) 44 % 35-52 Automated erythrocyte mean corpuscular volume 82 [foz_us] 80-99 Automated erythrocyte mean corpuscular hemoglobin (mass per erythrocyte) 28 pg 25-34 Automated erythrocyte mean corpuscular hemoglobin concentration measurement ( mass/volume) 34 g/dL 32-36 Automated erythrocyte distribution width ratio 16.6 % 10.0-14.5 Automated blood platelet count (count/volume) 318 10*3/uL 130-400 Automated blood platelet mean volume measurement 8.6 [foz_us] 7.4-10.4 Automated blood neutrophils/100 leukocytes 85 % 42-75 Automated blood lymphocytes/100 leukocytes 8 % 12-44 Blood monocytes/100 leukocytes 6 % 0-12 Automated blood eosinophils/100 leukocytes 1 % 0-10 Automated blood basophils/100 leukocytes 0 % 0-10 Blood neutrophils automated count (number/volume) 8.5 10*3 1.8-7.8 Blood lymphocytes automated count (number/volume) 0.8 10*3 1.0-4.0 Blood monocytes automated count (number/volume) 0.6 10*3 0.0-1.0 Automated eosinophil count 0.1 10*3/uL 0.0-0.3 Automated blood basophil count (count/volume) 0.0 10*3/uL 0.0-0.1 Comprehensive metabolic panel - 09/13/16 00:35 Serum or plasma sodium measurement (moles/volume) 130 mmol/L 135-145 Serum or plasma potassium measurement (moles/volume) 4.3 mmol/L 3.6-5.0 Serum or plasma chloride measurement (moles/volume) 93 mmol/L 98-107 Carbon dioxide 24 mmol/L 21-32 Serum or plasma anion gap determination (moles/volume) 13 mmol/L 5-14 Serum or plasma urea nitrogen measurement (mass/volume) 15 mg/dL 7-18 Serum or plasma creatinine measurement (mass/volume) 0.91 mg/dL 0.60-1.30 Serum or plasma urea nitrogen/creatinine mass ratio 16 NRG Serum or plasma creatinine measurement with calculation of estimated glomerular filtration rate > NRG Serum or plasma glucose measurement (mass/volume) 123 mg/dL 70-105 Serum or plasma calcium measurement (mass/volume) 9.3 mg/dL 8.5-10.1 Serum or plasma total bilirubin measurement (mass/volume) 0.4 mg/dL 0.1-1.0 Serum or plasma alkaline phosphatase measurement (enzymatic activity/volume) 105 U/L 40-136 Serum or plasma aspartate aminotransferase measurement (enzymatic activity/ volume) 16 U/L 5-34 Serum or plasma alanine aminotransferase measurement (enzymatic activity/volume ) 21 U/L 0-55 Serum or plasma protein measurement (mass/volume) 7.2 g/dL 6.4-8.2 Serum or plasma albumin measurement (mass/volume) 4.6 g/dL 3.2-4.5 Magnesium - 09/13/16 00:35 Magnesium 2.5 mg/dL 1.8-2.4 Serum or plasma lithium measurement (moles/volume) - 09/13/16 00:35 BNP level 265.6 pg/mL <100.0 Fibrin D-dimer FEU measurement in platelet poor plasma (mass/volume) - 00:35 Fibrin D-dimer FEU measurement in platelet poor plasma (mass/volume) 0.32 ug/mL 0.00-0.49 Complete urinalysis with reflex to culture - 09/13/16 02:00 Urine color determination YELLOW NRG Urine clarity determination CLEAR NRG Urine pH measurement by test strip 7 5-9 Specific gravity of urine by test strip 1.010 1.016- 1.022 Urine protein assay by test strip, semi-quantitative NEGATIVE NEGATIVE Urine glucose detection by automated test strip NEGATIVE NEGATIVE Erythrocytes detection in urine sediment by light microscopy 1+ NEGATIVE Urine ketones detection by automated test strip NEGATIVE NEGATIVE Urine nitrite detection by test strip NEGATIVE NEGATIVE Urine total bilirubin detection by test strip NEGATIVE NEGATIVE Urine urobilinogen measurement by automated test strip (mass/volume) NORMAL NORMAL Urine leukocyte esterase detection by dipstick 1+ NEGATIVE Automated urine sediment erythrocyte count by microscopy (number/high power field) RARE NRG Automated urine sediment leukocyte count by microscopy (number/high power field ) RARE NRG Bacteria detection in urine sediment by light microscopy TRACE NRG Squamous epithelial cells detection in urine sediment by light microscopy 2-5 NRG Crystals detection in urine sediment by light microscopy NONE NRG Casts detection in urine sediment by light microscopy NONE NRG Mucus detection in urine sediment by light microscopy NEGATIVE NRG Complete urinalysis with reflex to culture NO NRG Complete blood count (CBC) with automated white blood cell (WBC) differential - 05/28/17 12:00 Blood leukocytes automated count (number/volume) 9.0 10*3/uL 4.3-11.0 Blood erythrocytes automated count (number/volume) 4.23 10*6/uL 4.35-5.85 Venous blood hemoglobin measurement (mass/volume) 11.7 g/dL 11.5-16.0 Blood hematocrit (volume fraction) 35 % 35-52 Automated erythrocyte mean corpuscular volume 83 [foz_us] 80-99 Automated erythrocyte mean corpuscular hemoglobin (mass per erythrocyte) 28 pg 25-34 Automated erythrocyte mean corpuscular hemoglobin concentration measurement ( mass/volume) 33 g/dL 32-36 Automated erythrocyte distribution width ratio 15.2 % 10.0-14.5 Automated blood platelet count (count/volume) 420 10*3/uL 130-400 Automated blood platelet mean volume measurement 8.7 [foz_us] 7.4-10.4 Automated blood neutrophils/100 leukocytes 65 % 42-75 Automated blood lymphocytes/100 leukocytes 22 % 12-44 Blood monocytes/100 leukocytes 10 % 0-12 Automated blood eosinophils/100 leukocytes 2 % 0-10 Automated blood basophils/100 leukocytes 1 % 0-10 Blood neutrophils automated count (number/volume) 5.8 10*3 1.8-7.8 Blood lymphocytes automated count (number/volume) 2.0 10*3 1.0-4.0 Blood monocytes automated count (number/volume) 0.9 10*3 0.0-1.0 Automated eosinophil count 0.2 10*3/uL 0.0-0.3 Automated blood basophil count (count/volume) 0.1 10*3/uL 0.0-0.1 Comprehensive metabolic panel - 05/28/17 12:00 Serum or plasma sodium measurement (moles/volume) 134 mmol/L 135-145 Serum or plasma potassium measurement (moles/volume) 4.0 mmol/L 3.6-5.0 Serum or plasma chloride measurement (moles/volume) 93 mmol/L 98-107 Carbon dioxide 31 mmol/L 21-32 Serum or plasma anion gap determination (moles/volume) 10 mmol/L 5-14 Serum or plasma urea nitrogen measurement (mass/volume) 10 mg/dL 7-18 Serum or plasma creatinine measurement (mass/volume) 0.84 mg/dL 0.60-1.30 Serum or plasma urea nitrogen/creatinine mass ratio 12 NRG Serum or plasma creatinine measurement with calculation of estimated glomerular filtration rate > NRG Serum or plasma glucose measurement (mass/volume) 83 mg/dL 70-105 Serum or plasma calcium measurement (mass/volume) 8.6 mg/dL 8.5-10.1 Serum or plasma total bilirubin measurement (mass/volume) 0.2 mg/dL 0.1-1.0 Serum or plasma alkaline phosphatase measurement (enzymatic activity/volume) 102 U/L 40-136 Serum or plasma aspartate aminotransferase measurement (enzymatic activity/ volume) 16 U/L 5-34 Serum or plasma alanine aminotransferase measurement (enzymatic activity/volume ) 10 U/L 0-55 Serum or plasma protein measurement (mass/volume) 5.9 g/dL 6.4-8.2 Serum or plasma albumin measurement (mass/volume) 3.4 g/dL 3.2-4.5 Lipase - 05/28/17 12:00 Lipase 8 U/L 8-78 Gram stain microscopy - 05/28/17 12:32 GRAM STAIN RESULT FEW WBC'S, NO BACTERIA OBSERVED NRG Bacteria identification in wound by culture - 05/28/17 12:32 Bacteria identification in wound by culture NG NRG Complete urinalysis with reflex to culture - 05/28/17 12:45 Urine color determination YELLOW NRG Urine clarity determination CLEAR NRG Urine pH measurement by test strip 8 5-9 Specific gravity of urine by test strip 1.015 1.016- 1.022 Urine protein assay by test strip, semi-quantitative NEGATIVE NEGATIVE Urine glucose detection by automated test strip NEGATIVE NEGATIVE Erythrocytes detection in urine sediment by light microscopy NEGATIVE NEGATIVE Urine ketones detection by automated test strip NEGATIVE NEGATIVE Urine nitrite detection by test strip NEGATIVE NEGATIVE Urine total bilirubin detection by test strip NEGATIVE NEGATIVE Urine urobilinogen measurement by automated test strip (mass/volume) NORMAL NORMAL Urine leukocyte esterase detection by dipstick 1+ NEGATIVE Automated urine sediment erythrocyte count by microscopy (number/high power field) RARE NRG Automated urine sediment leukocyte count by microscopy (number/high power field ) RARE NRG Bacteria detection in urine sediment by light microscopy NEGATIVE NRG Squamous epithelial cells detection in urine sediment by light microscopy 2-5 NRG Crystals detection in urine sediment by light microscopy NONE NRG Casts detection in urine sediment by light microscopy NONE NRG Mucus detection in urine sediment by light microscopy NEGATIVE NRG Complete urinalysis with reflex to culture NO NRG FERRITIN, SERUM - 06/07/17 10:59 Ferritin, Serum 20 ng/mL 15-150 TSH+Free T4 - 06/07/17 10:59 TSH 6.850 uIU/mL 0.450-4.500 T4,Free(Direct) 0.95 ng/dL 0.82-1.77 Iron and TIBC - 06/07/17 10:59 Iron Bind.Cap.(TIBC) 432 ug/dL 250-450 UIBC 400 ug/dL 118-369 Iron, Serum 32 ug/dL 27-139 Iron Saturation 7 % 15-55 Ferritin, Serum - 06/07/17 10:59 Ferritin, Serum 20 ng/mL 15-150 Reticulocyte Count - 06/07/17 10:59 Reticulocyte Count 1.1 % 0.6-2.6 Serum or plasma renal function panel (Na, K, Cl, CO2, BUN, Cr, glucose,Ca, phos , alb) - 08/22/17 12:33 Serum or plasma sodium measurement (moles/volume) 133 mmol/L 135-145 Serum or plasma potassium measurement (moles/volume) 4.3 mmol/L 3.6-5.0 Serum or plasma chloride measurement (moles/volume) 96 mmol/L 98-107 Carbon dioxide 28 mmol/L 21-32 Serum or plasma anion gap determination (moles/volume) 9 mmol/L 5-14 Serum or plasma urea nitrogen measurement (mass/volume) 16 mg/dL 7-18 Serum or plasma creatinine measurement (mass/volume) 0.84 mg/dL 0.60-1.30 Serum or plasma urea nitrogen/creatinine mass ratio 19 NRG Serum or plasma creatinine measurement with calculation of estimated glomerular filtration rate > NRG Serum or plasma glucose measurement (mass/volume) 62 mg/dL 70-105 Serum or plasma calcium measurement (mass/volume) 8.7 mg/dL 8.5-10.1 Serum or plasma albumin measurement (mass/volume) 3.8 g/dL 3.2-4.5 Serum or plasma phosphate measurement (mass/volume) 3.4 mg/dL 2.3-4.7 VITAMIN D, 25-H - 05/11/18 10:27 VITAMIN D,25-OH,TOTAL,IA 36 ng/mL 30-100 FOLATE (FOLIC ACID) - 05/11/18 10:27 FOLATE, SERUM >24.0 ng/mL NRG VITAMIN B12 - 05/11/18 10:27 VITAMIN B12 710 pg/mL 200-1100 BMP - 05/30/18 09:18 GLUCOSE 93 mg/dL 65-99 UREA NITROGEN (BUN) 15 mg/dL 7-25 CREATININE 0.83 mg/dL 0.60-0.93 eGFR NON-AFR. MONGOLIAN 70 mL/min/1.73m2 > OR=60 eGFR 81 mL/min/1.73m2 > OR=60 BUN/CREATININE RATIO NOT APPLICABLE (calc) 6-22 SODIUM 133 mmol/L 135-146 POTASSIUM 5.6 mmol/L 3.5-5.3 CHLORIDE 94 mmol/L 98-110 CARBON DIOXIDE 31 mmol/L 20-32 CALCIUM 9.3 mg/dL 8.6-10.4 Encounters ACCT No. Visit Date/Time Discharge Status Pt. Type Provider Facility Loc./Unit Complaint [id number] 11/06/2014 13:27:00 11/06/2014 23:59:59 CLS Outpatient CLARISSE GARCIA APRN [id number] 10/09/2014 08:45:00 10/09/2014 23:59:59 CLS Outpatient OBINNA PRASAD MD [id number] 07/30/2016 18:06:00 Document Registration [id number] 05/09/2015 07:08:40 ACT Document Registration [id number] 03/13/2018 08:00:00 03/13/2018 23:59:59 CLS Outpatient OBINNA PRASAD MD [facility] [id number] 05/30/2018 09:00:00 Document Registration [id number] 05/11/2018 09:40:00 Document Registration [id number] 06/07/2017 10:00:00 Document Registration [id number] 06/08/2017 10:09:00 Document Registration [id number] 06/22/2018 08:06:00 06/22/2018 23:59:59 CLS Outpatient VERONICA LAU FACCTERRY FACP CCDS [facility] CARD CAD [id number] 06/09/2018 15:02:00 06/09/2018 23:59:59 CLS Preadmit JOVANA HULL MD [facility] RAD RIGHT EPIGLOTIC MASS [id number] 06/09/2018 12:49:00 06/09/2018 23:59:59 CLS Outpatient JOVANA HULL MD [facility] RAD RIGHT EPIGLOTIC MASS [id number] 03/01/2018 08:59:00 03/01/2018 12:30:00 DIS Outpatient RAYNA FARAH MD [facility] ENDO +BLOOD IN STOOLS/ CONSTIPATION/HX PEREZ'S [id number] 02/23/2018 05:48:00 02/23/2018 11:59:00 DIS Outpatient RAYNA FARAH MD [facility] [address] PREOP COLONOSCOPY/EGD [id number] 09/08/2017 11:10:00 09/08/2017 23:59:59 CLS Outpatient OBINNA PRASAD MD [facility] [address] RAD M81.0, Z00.00,Z12.31 [id number] 09/08/2017 11:10:00 09/08/2017 13:21:00 DIS Outpatient JOVANA JOSEPH DO [facility] [address] [facility] CARD M54.16 LUMBAR RADICULOPATHY [id number] 08/22/2017 12:20:00 08/22/2017 23:59:59 CLS Outpatient MERRITT VALENZUELA DO [facility] [address] RAD ADRENAL MASS E27.8 [id number] 07/21/2017 08:46:00 07/21/2017 23:59:59 CLS Outpatient OBINNA PRASAD MD [facility] [address] RAD Z00.00 [id number] 06/23/2017 12:30:00 06/23/2017 23:59:59 CLS Preadmit RONNY BENEDICT MD [facility] [address] WOUNDCARE [id number] 06/14/2017 11:19:00 06/14/2017 23:59:59 CLS Outpatient WILLIAN ECTOREllis Mullins APRN [facility] [address] WOUNDCARE [id number] 06/09/2017 09:44:00 06/09/2017 23:59:59 CLS Outpatient RONNY BENEDICT MD [facility] [address] WOUNDCARE [id number] 05/28/2017 11:53:00 05/28/2017 14:18:00 DIS Emergency EMELY ESTES [facility] [address] [facility] ER CONSTIPATION/DIARRHEA [id number] 05/17/2017 13:15:00 05/17/2017 23:59:59 CLS Preadmit VERONICA LAU FACC, TERRY MILLER CCDS [facility] RAD PERIPHERAL ARTERIAL DISEASE I73.9 [id number] 05/11/2017 09:09:00 05/11/2017 23:59:59 CLS Preadmit OBINNA PRASAD MD [facility] [address] [facility] SLEEP HYPERSOMNIA,SNORING [id number] 11/08/2016 10:15:00 11/08/2016 23:59:59 CLS Preadmit DIALLO GONZÁLES MD [facility] J44.9 [id number] 08/09/2016 10:35:00 11/07/2016 00:01:00 DIS Outpatient DIALLO GONZÁLES MD [facility] J44.9 [id number] 11/05/2016 08:40:00 11/05/2016 09:19:00 DIS Outpatient LELE HUGHES MD [facility] [address] [facility] CARD DISC DISORDER [id number] 09/30/2016 13:17:00 09/30/2016 23:59:59 CLS Outpatient ADINA LOZANO MD [facility] RAD SHORTNESS OF BREATH [id number] 09/13/2016 00:00:00 09/13/2016 02:26:00 DIS Emergency TOSHIA DUENAS DO [facility] ER SOA, COUGH [id number] 08/16/2016 13:04:00 08/16/2016 14:17:00 DIS Outpatient LELE HUGHES MD [facility] [address] [facility] CARD M51.16 [id number] 03/01/2016 13:13:00 03/01/2016 23:59:59 CLS Outpatient DIALLO GONZÁLES MD [facility] RAD COPD [id number] 03/01/2016 13:08:00 03/01/2016 23:59:59 CLS Outpatient OBINNA PRASAD MD [facility] RAD F/U PATCHY DENSITY ANTERIORLY R LOBE [id number] 03/01/2016 13:01:00 03/01/2016 23:59:59 CLS Outpatient VERONICA LAU FACC, TERRY MILLER CCDS [facility] CARD CHRONIC HYPONATREMIA,COPD,ADRENAL MASS,HTN [id number] 01/29/2016 06:14:00 01/29/2016 15:28:00 DIS Outpatient KIM THURSTON DO [facility] PREOP POLYPS;GERD [id number] 11/17/2015 14:52:00 11/18/2015 16:45:00 DIS Inpatient FABIANA BEJARANO MD [facility] [address] [facility] 4TH PNEUMONIA AECOPD AFIB RVR [id number] 10/10/2015 11:25:00 10/10/2015 12:46:00 DIS Outpatient LELE HUGHES MD [facility] CARD DISC DISORDER W/ RADICULOPATHY LUMBAR [id number] 07/22/2015 13:27:00 07/22/2015 23:59:59 CLS Outpatient MERRITT VALENZUELA DO [facility] RAD ADRENAL MASS [id number] 06/30/2015 10:18:00 06/30/2015 23:59:59 CLS Outpatient OBINNA PRASAD MD [facility] RAD FOLLOW UP FOR PNEUMONIA [id number] 06/27/2015 07:22:00 06/27/2015 08:21:00 DIS Outpatient LELE HUGHES MD [facility] CARD DDD LUMBAR [id number] 05/19/2015 09:34:00 05/22/2015 13:51:00 DIS Inpatient OBINNA PRASAD MD [facility] SURGICAL PNEUMONIA [id number] 05/09/2015 07:07:00 05/09/2015 07:55:00 DIS Outpatient LELE HUGHES MD [facility] CARD DDD LUMBAR [id number] 03/13/2015 10:56:00 03/13/2015 23:59:59 CLS Outpatient JOVANA HULL MD [facility] RAD UNILATERAL SORE THROAT, EAR PAIN [id number] 02/25/2015 10:18:00 02/25/2015 23:59:59 CLS Outpatient OBINNA PRASAD MD [facility] RAD ADRENAL MASS [id number] 02/24/2015 10:18:00 02/24/2015 23:59:59 CLS Outpatient OBINNA PRASAD MD [facility] LAB HYPERTENSION, HYPOTHYROIDISM [id number] 01/17/2015 08:49:00 01/17/2015 10:16:00 DIS Outpatient LELE HUGHES MD [facility] CARD DDD LUMBAR [id number] 12/31/2014 10:16:00 12/31/2014 23:59:59 CLS Outpatient LELE HUGHES MD [facility] RAD LOW BACK PAIN [id number] 10/25/2014 07:33:00 10/25/2014 08:14:00 DIS Outpatient LELE HUGHES MD [facility] CARD DDD [id number] 10/14/2014 15:18:00 10/14/2014 23:59:59 CLS Outpatient OBINNA PRASAD MD [facility] RAD HEAD TRAUMA, ON PREDAXIA [id number] 08/18/2014 18:00:00 08/18/2014 20:08:00 DIS Emergency MARICHUY LAU, CORNELIO Doll [facility] ER COLD COUGH [id number] 07/19/2014 07:32:00 07/19/2014 23:59:59 CLS Outpatient LELE HUGHES MD [facility] CARD DDD LUMBAR [id number] 07/19/2014 07:30:00 07/19/2014 23:59:59 CLS Outpatient SHAYY PEOPLES MD [facility] RAD ABDOMINAL MASS [id number] 07/01/2014 09:42:00 07/01/2014 23:59:59 CLS Outpatient SHAYY PEOPLES MD [facility] RAD ABDOMINAL MASS [id number] 05/22/2014 08:50:00 05/22/2014 14:10:00 DIS Outpatient RAYNA FARAH MD [facility] SDC COLON MASS;REFLUX [id number] 05/17/2014 07:11:00 05/17/2014 08:01:00 DIS Outpatient LELE HUGHES MD [facility] CARD DDD [id number] 05/16/2014 07:21:00 05/16/2014 23:59:59 CLS Outpatient RAYNA FARAH MD [facility] PREOP COLON MASS;REFLUX [id number] 05/08/2014 08:05:00 05/08/2014 23:59:59 CLS Outpatient HSAYY PEOPLES MD [facility] RAD WEIGHT LOSS,SIADH, TOBACCOISM,EARLY SATIETY [id number] 01/28/2014 12:13:00 01/28/2014 14:04:00 DIS Outpatient LELE HUGHES MD [facility] CARD DDD LUMBAR [id number] 11/09/2013 07:19:00 11/09/2013 23:59:59 CLS Outpatient SHAYY PEOPLES MD [facility] RAD SCREENING [id number] 11/09/2013 07:09:00 11/09/2013 23:59:59 CLS Outpatient LELE HUGHES MD [facility] CARD SACROILLIAC JOINT DSYFUNCTION,HIP PAIN BILATERAL [id number] 09/03/2013 12:35:00 09/03/2013 23:59:59 CLS Outpatient LELE HUGHES MD [facility] CARD SACROILLIAC JOINT [id number] 08/13/2013 12:29:00 08/13/2013 23:59:59 CLS Outpatient LELE HUGHES MD [facility] [address] CARD LUMBAR SPONDYLOSIS [id number] 07/11/2013 09:34:00 07/11/2013 11:51:00 DIS Outpatient LELE HUGHES MD [facility] [address] [facility] REHAB CERICALGIA [id number] 06/08/2013 07:43:00 06/08/2013 23:59:59 CLS Outpatient LELE HUGHES MD [facility] CARD DEGENERATIVE DISC DISEASE-LUMBAR [id number] 05/04/2013 08:00:00 05/04/2013 23:59:59 CLS Outpatient LELE HUGHES MD [facility] [address] [facility] CARD DDD LUMBAR [id number] 06/29/2018 08:15:00 PEN Preadmit JOVANA HULL MD [facility] SDC EPIGLOTTIC MASS [id number] 06/27/2018 13:00:00 PEN Preadmit JOVANA HULL MD [facility] PREOP EPIGLOTTIC MASS [id number] 12/31/2014 10:16:00 Document Registration [id number] 12/31/2014 10:16:00 Document Registration [id number] 12/31/2014 10:16:00 Document Registration [id number] 12/31/2014 10:16:00 Document Registration [id number] 12/31/2014 10:16:00 Document Registration [id number] 12/31/2014 10:16:00 Document Registration [id number] 12/31/2014 10:16:00 Document Registration [id number] 12/31/2014 10:16:00 Document Registration [id number] 12/31/2014 10:16:00 Document Registration [id number] 12/31/2014 10:16:00 Document Registration [id number] 12/31/2014 10:16:00 Document Registration [id number] 12/31/2014 10:16:00 Document Registration [id number] 12/31/2014 10:15:00 Document Registration [id number] 12/31/2014 10:15:00 Document Registration [id number] 12/31/2014 10:15:00 Document Registration [id number] 12/31/2014 10:15:00 Document Registration [id number] 12/31/2014 10:15:00 Document Registration [id number] 11/10/2012 09:01:00 Document Registration [id number] 11/09/2012 08:16:00 Document Registration [id number] 10/26/2012 09:17:00 Document Registration [id number] 10/09/2012 10:13:00 Document Registration [id number] 05/22/2012 11:03:00 Document Registration [id number] 04/27/2012 13:09:00 Document Registration [id number] 04/25/2012 14:09:00 Document Registration [id number] 04/20/2012 09:59:00 Document Registration [id number] 12/17/2011 08:02:00 Document Registration [id number] 12/14/2011 08:56:00 Document Registration [id number] 12/08/2011 08:27:00 Document Registration [id number] 08/02/2011 11:42:00 Document Registration [id number] 07/01/2011 13:03:00 Document Registration [id number] 06/18/2011 11:31:00 Document Registration [id number] 06/08/2011 11:45:00 Document Registration [id number] 05/24/2011 12:37:00 Document Registration [id number] 05/24/2011 12:24:00 Document Registration [id number] 04/02/2011 09:07:00 Document Registration [id number] 03/09/2011 10:33:00 Document Registration [id number] 02/26/2011 07:33:00 Document Registration [id number] 02/23/2011 07:24:00 Document Registration [id number] 09/29/2010 08:58:00 Document Registration [id number] 09/18/2010 05:38:00 Document Registration [id number] 09/15/2010 13:07:00 Document Registration [id number] 08/25/2010 09:55:00 Document Registration [id number] 08/05/2010 08:46:00 Document Registration [id number] 07/13/2010 12:53:00 Document Registration [id number] 07/13/2010 12:41:00 Document Registration [id number] 07/07/2010 12:21:00 Document Registration [id number] 06/29/2010 08:26:00 Document Registration [id number] 06/26/2010 10:59:00 Document Registration [id number] 06/15/2010 11:31:00 Document Registration [id number] 05/26/2010 11:19:00 Document Registration [id number] 05/24/2010 11:50:00 Document Registration [id number] 05/20/2010 10:10:00 Document Registration [id number] 05/12/2010 13:46:00 Document Registration [id number] 05/11/2010 10:56:00 Document Registration [id number] 01/21/2010 10:50:00 Document Registration
--- NOTE | 2018-06-29 09:55 | Progress Note-Pre Operative ---
Pre-Operative Progress Note H&P Reviewed The H&P was reviewed, patient examined and no changes noted. Date Seen by Provider: Jun 29, 2018 Time Seen by Provider: 08: Date H&P Reviewed: Jun 29, 2018 Time H&P Reviewed: :30 Pre-Operative Diagnosis: Epiglottic Lesion JOVANA HULL MD Jun 29, 2018 9:55 am
[2018-06-29] MEDS ORDERED: ROCURONIUM 10 MG/ML 5 ML SYRINGE IV ONE (10:13)
[2018-06-29] MEDS ORDERED: NEOSTIGMINE 1 MG/ML 5 ML SYRINGE ONE (10:32)
[2018-06-29] MEDS ORDERED: GLYCOPYRROLATE 0.2 MG/ML (ROBINUL) 2 ML VIAL ONE (10:32)
--- NOTE | 2018-06-29 10:52 | Progress Note-Post Operative ---
Post-Operative Progess Note Surgeon (s)/Art Educator (s) Surgeon JOVANA HULL MD Art Educator n/a Pre-Operative Diagnosis Epiglottic Lesion Post-Operative Diagnosis same Post-Op Procedure Note Date of Procedure: Jun 29, 2018 Name of Procedure Performed: Drecti Laryngoscopy with Biopsy of Epiglottic Mass Description & Findings Description and Findings: n/a Anesthesia Type get Estimated Blood Loss minimal Packing none. Specimen(s) collected/removed Epiglottic lesion biopsy to frozen JOVANA HULL MD Jun 29, 2018 10:52 am
[2018-06-29] MEDS ORDERED: ACETAMINOPHEN 325 MG TABLET PO PRN (11:00)
[2018-06-29] MEDS ORDERED: PROMETHAZINE INJ 25 MG/ML (PHENERGAN) AMP IV PRN (11:00)
[2018-06-29] MEDS ORDERED: fentaNYL INJECTION 100 MCG/2 ML AMP IVP ONE (11:30)
[2018-06-29] MEDS: fentaNYL INJECTION 100 MCG/2 ML AMP IVP ONE ×2 (11:43→12:15)
[2018-06-29 12:15] VITALS: BP 180/86
[2018-06-29] MEDS ORDERED: TRAM50TA2 PO (12:26)
[2018-06-29 12:45] VITALS: BP 158/79
[2018-06-29 13:15] VITALS: BP 164/79
--- NOTE | 2018-06-29 18:29 | Anesthesia-General Post-Op ---
General Patient Condition Mental Status/LOC: Same as Preop Cardiovascular: Satisfactory Nausea/Vomiting: Absent Respiratory: Satisfactory Pain: Controlled Complications: Absent Post Op Complications Complications None Follow Up Care/Instructions Patient Instructions None needed. Anesthesia/Patient Condition Patient Condition Patient was seen after the procedure and she was doing well, no complaints, stable vital signs, no apparent adverse anesthesia problems. GLORIA HERNANDEZ DO Jun 29, 2018 18:29
== END 2018-06-29 13:20 | disposition home or self-care (01) ==
LOC: SDC 08:09
PROVIDERS: ATTEND Otolaryngology Otolaryngology/Facial Plastic Surgery
DX: C32.1 Malignant neoplasm of supraglottis (principal); I25.10 Atherosclerotic heart disease of native coronary artery without angina pectoris; I10 Essential (primary) hypertension; I48.91 Unspecified atrial fibrillation; J44.9 Chronic obstructive pulmonary disease, unspecified; K22.70 Barrett's esophagus without dysplasia; F17.210 Nicotine dependence, cigarettes, uncomplicated; Z79.01 Long term (current) use of anticoagulants; Z79.82 Long term (current) use of aspirin; Z79.899 Other long term (current) drug therapy
CPT/HCPCS: 88305; 88331

== ENCOUNTER → 2018-07-11 | Outpatient (CLI) | payer MEDICARE, MEDICAID ==
--- NOTE | 2018-07-11 13:48 | Diagnostic Imaging Report ---
INDICATION: Squamous cell carcinoma of the epiglottis. Study is performed for initial staging. TECHNIQUE: Serum blood glucose level at the time of injection is 93 mg/dL. The patient was administered 12.2 mCi of F-18 FDG intravenously, administered in the right antecubital location and PET imaging was performed from the top of the skull through the mid thighs. Noncontrast CT was also performed for attenuation correction and anatomic correlation. COMPARISON: No prior PET studies are available for comparison. Comparison is made with recent CT of the neck performed on 06/09/2018. FINDINGS: There is symmetric activity throughout the brain. There is an intense focus of hypermetabolism in the neck in the region of the right aspect of the epiglottis, corresponding to the 17 mm mass at this location on recent CT. This demonstrates SUV max of approximately 14.3. No other regions of hypermetabolism in the neck are identified. No hypermetabolic lymph nodes are present. Alejandra and mediastinum are unremarkable. No pulmonary parenchymal abnormalities are seen. There is physiologic activity within the GI and tracts. No suspicious hypermetabolic foci are seen. IMPRESSION: 1. Intense hypermetabolism within the rounded soft tissue mass at the right aspect of the epiglottis noted on recent CT neck. There is consistent with patient's primary neoplasm. No hypermetabolic lymphadenopathy is seen to suggest metastatic disease. Dictated by: Dictated on workstation # [id number]
== END ==
LOC: RAD 08:05
PROVIDERS: ATTEND Otolaryngology Otolaryngology/Facial Plastic Surgery
DX: C32.1 Malignant neoplasm of supraglottis (principal); R94.8 Abnormal results of function studies of other organs and systems

== ENCOUNTER 2018-07-28 12:47 | Outpatient (CLI) | payer MEDICARE, MEDICAID ==
[~2018-07-28] VITALS: Ht 160 cm; Wt 65.1 kg
[2018-07-28] MEDS ORDERED: ZOLEDRONATE 5 MG/100 ML (RECLAST) BTL IV ONE (13:15)
[2018-07-28 13:40] VITALS: BP 155/76
== END 2018-07-28 14:00 | disposition home or self-care (01) ==
LOC: SDC 12:47
PROVIDERS: ATTEND Family Medicine
DX: M81.0 Age-related osteoporosis without current pathological fracture (principal)
CPT/HCPCS: 96365

== ENCOUNTER 2018-09-20 10:45 | Outpatient (RCR) | payer MEDICARE, MEDICAID ==
[~2018-09-20 10:45] MED LIST changes: -ALEN70TA47 PO; +ALEN70TA5 PO
== END 2018-10-09 | disposition home or self-care (01) ==
LOC: ONC 10:45
PROVIDERS: ATTEND Radiology Radiation Oncology
DX: Z51.0 Encounter for antineoplastic radiation therapy (principal); C32.1 Malignant neoplasm of supraglottis
CPT/HCPCS: 77295; 77300; 77307; 77334; 77336; 77386; 77417; 99204

== ENCOUNTER → 2019-05-16 | Outpatient (CLI) | payer MEDICARE, MEDICAID ==
[~2019-05-16] MED LIST changes: -DULO60CA58 PO; +DULO60CA59 PO; +OMEP20CA13 PO
--- NOTE | 2019-05-16 16:57 | Diagnostic Imaging Report ---
PROCEDURE: CT neck soft tissue with contrast. TECHNIQUE: Multiple contiguous axial images were obtained through the neck after the administration of contrast. Auto Exposure Controls were utilized during the CT exam to meet ALARA standards for radiation dose reduction. INDICATION: Head and neck cancer with interval radiation therapy. COMPARISON: Comparison is made with a prior study from 06/09/2018. FINDINGS: The previous examination demonstrated a well-defined mass at the level of the right vallecula just anterior to the epiglottis that measured 18 x 20 mm. This region has decreased in size and now measures approximately 14 x 11 mm and demonstrates diminished peripheral enhancement. The component extending laterally and inferiorly towards the right piriform sinus is not significantly changed. There is new diffuse induration demonstrated throughout the soft tissues with new edema and thickening of the epiglottis and induration within the preepiglottic and paraglottic fat planes. This is compatible with reported interval radiation therapy. There are no findings of pathologically enlarged cervical lymph nodes demonstrated. The base of the tongue appears symmetric. There is no displacement of the parapharyngeal fat planes or abnormal process within the prevertebral or retropharyngeal space. The parotid, submandibular and thyroid glands are unremarkable. Atherosclerotic calcifications are present within the carotids. This is more advanced in the left. The contrast timing and protocol was not optimized for assessment. This does appear to likely result in at least 50% stenosis on the left. The intracranial contents demonstrate no mass effect or abnormal enhancement. The mastoids appear clear. The paranasal sinuses appear clear. Lung apices demonstrate no pulmonary nodule or mass. There are degenerative features within the cervical spine. There is fusion of C3-4. There is advanced loss of disc space height at C5-6 and C6-7. There is no acute osseous abnormality or suspicious lytic or blastic lesion. IMPRESSION: 1. Persistent but improved mucosal based soft tissue mass within the neck centered at the level of the base of the epiglottis and vallecula. Its inferior extension laterally is not significantly changed. There are new radiation changes demonstrated throughout the neck with thickening of the epiglottis and induration demonstrated within the preepiglottic and paraglottic fat planes. 2. No pathologic enlargement of cervical lymph nodes. 3. No suspicious osseous lesion. 4. Left greater than right carotid bifurcation atherosclerosis. Dictated by: Dictated on workstation # [id number]
== END ==
LOC: RAD 15:08
PROVIDERS: ATTEND Family Medicine
DX: I65.23 Occlusion and stenosis of bilateral carotid arteries (principal); R13.13 Dysphagia, pharyngeal phase; R22.1 Localized swelling, mass and lump, neck
CPT/HCPCS: 70491

== ENCOUNTER 2019-07-10 06:46 | Day surgery (SDC) | payer MEDICARE, MEDICAID ==
[~2019-07-10] VITALS: Ht 157.5 cm; Wt 63.6 kg
[2019-07-10] VITALS (9 sets, daily range): BP systolic 132–179; BP diastolic 77–109
[2019-07-10] MEDS ORDERED: LIDOCAINE 1% INJ 20 ML 20 ML VIAL ONE (06:48)
[2019-07-10] MEDS ORDERED: HEParin (CATH LAB) 2,000 ML IV ONE (06:48)
[2019-07-10] MEDS ORDERED: NS IV 1000 ML 1,000 ML ONE (06:48)
[2019-07-10] MEDS ORDERED: NS IV 1000 ML 1,000 ML IV SCH ×2 (07:00→10:22)
[2019-07-10 07:10] LABS: HEMOGLOBIN 10.9 G/DL (11.5-16.0); MEAN PLATELET VOLUME 8.8 FL (7.4-10.4); RED CELL DISTRIBUTION WIDTH 16.1 % (10.0-14.5); WHITE BLOOD COUNT 6.8 10^3/uL (4.3-11.0)
[2019-07-10 07:33] LABS: PROTHROMBIN TIME PATIENT 13.5 SEC (12.2-14.7)
[2019-07-10 07:36] LABS: ALANINE AMINOTRANSFERASE 10 U/L (0-55); ALBUMIN 4.1 GM/DL (3.2-4.5); ALKALINE PHOSPHATASE 126 U/L (40-136); BILIRUBIN,TOTAL 0.4 MG/DL (0.1-1.0); BUN/CREATININE RATIO 10; CALCIUM 9.4 MG/DL (8.5-10.1); CARBON DIOXIDE 29 MMOL/L (21-32); CHLORIDE 94 MMOL/L (98-107); CHOLESTEROL 164 MG/DL (< 200); CREATININE SERUM 0.84 MG/DL (0.60-1.30); GFR ESTIMATED > 60; GLUCOSE 100 MG/DL (70-105); HDL CHOLESTEROL 87 MG/DL (40-60); POTASSIUM 3.9 MMOL/L (3.6-5.0); SODIUM 137 MMOL/L (135-145); TOTAL PROTEIN 6.9 GM/DL (6.4-8.2); TRIGLYCERIDES 82 MG/DL (<150); VLDL CHOLESTEROL 16 MG/DL (5-40)
[2019-07-10] MEDS ORDERED: DABI150C5 PO (07:36)
[2019-07-10] MEDS ORDERED: POLY17PO6 PO (07:36)
[2019-07-10] MEDS ORDERED: MULT-642 PO (07:36)
[2019-07-10] MEDS ORDERED: ACET325T49 PO (07:36)
[2019-07-10] MEDS ORDERED: VITA-189 PO (07:36)
[2019-07-10] MEDS ORDERED: ASPI-983 PO (07:36)
[2019-07-10] MEDS ORDERED: ZOLE5INF IV (07:36)
[2019-07-10] MEDS ORDERED: DOXA2TAB PO (07:36)
[2019-07-10] MEDS ORDERED: ALB0.5V INH (09:30)
[2019-07-10] MEDS ORDERED: MORP1CAP12 PO (09:35)
[2019-07-10] MEDS ORDERED: MIDAZOLAM 5 MG/5 ML (VERSED) VIAL ONE (09:36)
[2019-07-10] MEDS ORDERED: fentaNYL INJECTION 100 MCG/2 ML AMP ONE (09:37)
--- NOTE | 2019-07-10 09:54 | Cardiac Procedure Note-CS/ASA ---
Pre-Procedure Note Pre-Op Procedure Note H&P Reviewed The H&P was reviewed, patient examined and no changes noted. Date H&P Reviewed: Jul 10, 2019 Time H&P Reviewed: 09:54 Conscious Sedation Pre-Proced Time 09:54 ASA Score 3 For ASA 3 and 4: Consider anesthesia and medical clearance. Also, for patients with a history of failed moderate sedation consider anesthesia. Airway Lungs Heart ASA score ASA 1: a normal healthy patient ASA 2: a patient with a mild systemic disease (mid diabetes, controlled hypertension, obesity ASA 3: a patient with a severe systemic disease that limits activity (angina, COPD, prior Myocardial infarction) ASA 4: a patient with an incapacitating disease that is a constant threat to life (CHF, renal failure) ASA 5: a moribund patient not expected to survive 24 hrs. (ruptured aneurysm) ASA 6: a declared brain- patient whose organs are being harvested. For emergent operations, add the letter E after the classification Mallampati Classification Grade 2 Sedation Plan Analgesia, Amnesia, Plan communicated to team members, Discussed options with patient/fam, Discussed risks with patient/fam The patient is an appropriate candidate to undergo the planned procedure, sedation, and anesthesia. The patient immediately re-assessed prior to indication. TERRY MARTIN MD FACP FAC CCDS Jul 10, 2019 09:54 POS
[2019-07-10] MEDS ORDERED: OMEP40CA36 PO (10:06)
--- NOTE | 2019-07-10 10:06 | NUR ---
SPOKE WITH PT WELL CALLING [facility] TO COMPLETE THE MED REC. THE PT WAS ABLE TO TELL ME HOW/WHEN SHE TAKES HER MEDICATIONS. THE FOLLOWING MEDS WERE ALL FILLED ON 06-22-2019 ALBUTEROL NEB SOLUTION ALBUTEROL HFA SYMBICORT PRADAXA DOXAZOSIN DULOXETINE FLONASE FUROSEMIDE LEVOTHYROXINE LORATADINE METHOCARBAMOL METOPROLOL OMEPRAZOLE INCRUSE MIRTAZAPINE ALSO ON 06-22-2019 [facility] INDICATED THEY FILLED DILTIAZEM ER 240MG HOWEVER WHEN I ASKED THE PT ABOUT THIS MEDICATION SHE SAID SHE WAS NO LONGER TAKING. TING FROM [facility] SAID THE LABEL SAID TO DISCONTINUE THE 360 SO MAYBE THE PT IS CONFUSED. DUE TO THE PT SAYING SHE NO LONGER TOOK THIS MED I LEFT IT OFF THE MED REC. 06-15-2019 EMBEDA 30/1.2MG PT RECEIVED #28/28DS FROM [facility] OTC MEDS: MIRALAX ASPIRIN 81MG
--- NOTE | 2019-07-10 10:25 | Discharge Inst-Post CATH ---
Discharge Inst-CATH/EP Post Cardiac Cath/EP D/C Inst Follow Up/Plan F/u with Dr Neri in 2 weeks ACTIVITY * Go Home directly and rest. * Limit activity of the leg (or wrist if it was used) for 7 days including aerobics, swimming, jogging, bicycling, etc. * Restrict stair-climbing for 7 days if possible, if not, climb up with your n on-cath leg, then bring together on the same step. * Avoid lifting, pushing, pulling or excessive movement of the affected ex tremity for 7 days. * Customary sexual activity may be resumed after 2 days-use caution not to use a position that strains or causes pain to the affected extremity. * No driving for 24 hours. * NO SMOKING. * Avoid straining for bowel movements for 7 days. * Gentle walking on level ground is allowed. * Returning to work will depend on the type of procedure and the results. Your doctor will discuss this with you. CALL YOUR DOCTOR FOR ANY OF THE FOLLOWING: *If bleeding from the puncture site occurs- Apply gentle pressure to site with clean cloth and call your doctor or EMS. * If a knot or lump forms under the skin, increases in size, or causes pain. * If bruising appears to be worsening or moving further down your leg instead of disappearing. * Temperature above 101 F. CARE OF YOUR GROIN INCISION; * Bruising or purple discoloration of the skin near the puncture site is common. * You may shower only, no bathtub bathing for 5 days. Be careful to avoid slipping as your leg may feel stiff. * If a closure device was used on your femoral artery, please see the attached guide regarding care of the device and your leg. * Leave dressing on FOR 24 hours. CARE OF YOUR WRIST INCISION; * Bruising or purple discoloration of the skin near the puncture site is common. * You may shower. * DO NOT submerge wrist. * Leave dressing on FOR 24 hours. TERRY NERI MD FACP FAC CCDS Jul 10, 2019 10:25 POS
--- NOTE | 2019-07-10 10:26 | Discharge Inst-Cardiology ---
Discharge Inst-Cardiac Discharge Medications Continued Medications: Acetaminophen (Acetaminophen) 325 Mg Tablet 650 MG PO Q6H PRN for PAIN-MILD, TAB Albuterol Sulfate (Ventolin Hfa) 1 Puff Puff 1 PUFF IH Q4H PRN for SHORTNESS OF BREATH, PUFF Albuterol Sulfate (Albuterol Sulfate) 2.5 Mg/0.5 Ml Vial.neb 2.5 MG INH Q4H for SHORTNESS OF BREATH, EACH Aspirin (Aspirin EC) 81 Mg Tablet.dr 81 MG PO Q48H, TAB Budesonide/Formoterol Fumarate (Symbicort 160-4.5 Mcg Inhaler) 10.2 Gm Hfa.aer.ad 2 PUFF INH BID Dabigatran Etexilate Mesylate (Pradaxa) 150 Mg Capsule 150 MG PO BID, CAP Doxazosin Mesylate (Cardura) 2 Mg Tablet 2 MG PO HS, TAB Duloxetine HCl (Duloxetine HCl) 60 Mg Capsule.dr 60 MG PO BID Fluticasone Propionate (Flonase Allergy Relief) 9.9 Ml Morton.susp 1 SPRAY NS DAILY, EACH Furosemide (Furosemide) 20 Mg Tablet 20 MG PO DAILY Levothyroxine Sodium (Levothyroxine Sodium) 75 Mcg Tablet 75 MCG PO DAILY, TAB Loratadine (Loratadine) 10 Mg Tablet 10 MG PO DAILY Methocarbamol (Methocarbamol) 750 Mg Tablet 750 MG PO TID Metoprolol Succinate (Metoprolol Succinate) 200 Mg Tab.er.24h 200 MG PO DAILY Mirtazapine (Mirtazapine) 30 Mg Tablet 30 MG PO HS Morphine Sulfate/Naltrexone (Embeda ER 30-1.2 mg Capsule) 1 Each Cap.er.po 1 EACH PO DAILY for 7 Days, EA Multivitamin (Once Daily) 1 Each Tablet 1 EACH PO 1200, TAB Omeprazole (Omeprazole) 40 Mg Capsule.dr 40 MG PO DAILY, CAP Polyethylene Glycol 3350 (Miralax) 17 Gm Powd.pack 17 GM PO DAILY PRN for CONSTIPATION-2ND LINE, EACH Umeclidinium [place] (Incruse Ellipta) 62.5 Mcg Blst.w.dev 1 PUFF IH DAILY Vitamin B Complex (B Complex) 1 Each Tablet 1 EACH PO 1200, TAB Zoledronate (Reclast 5 mg/100 ml Solution) 5 Mg/100 Ml Btl 5 MG IV YEARLY, TERRY WHITTEN MD FACP FACC CCDS Jul 10, 2019 10:25 POS
[2019-07-10] MEDS ORDERED: PATIENT MAY USE OWN MEDS, ALL PO SCH (10:30)
[2019-07-10] MEDS ORDERED: ACETAMINOPHEN 500 MG TAB (TYLENOL) PO ONE (13:15)
--- NOTE | 2019-07-10 13:24 | CARDIAC CATHETERIZATION ---
DATE OF SERVICE: 07/10/2019 CARDIAC CATHETERIZATION REPORT The patient is a 73-year-old lady who has multiple coronary artery disease risk factors, has a history of coronary artery disease (mild on a cardiac catheterization of several years ago), and has symptoms suggestive of new onset of angina. Cardiac catheterization was carried out today after having obtained an informed consent. PROCEDURE: She was brought to the cardiac catheterization laboratory in a fasting state. Right groin was prepared and draped in the usual sterile fashion. Lidocaine 1% was used for local anesthesia. Modified Seldinger technique was used to advance a 5-Estonian sheath in right femoral artery, 5-Estonian JL4 catheter for left coronary angiography, 5-Estonian JR4 catheter for right coronary angiography, 5-Estonian pigtail catheter was used for left heart catheterization and left ventricular angiography. Pigtail catheter was removed. Angiography of the right femoral artery was carried out through the sheath. Mynx was used to achieve hemostasis. She tolerated the procedure well. HEMODYNAMICS: Left ventricular end-diastolic pressure following coronary angiography was 16 mmHg. There is no significant pressure gradient on pullback across the aortic valve. Ascending aortic pressure was 172/82 with a mean of 105 mmHg. CORONARY ANGIOGRAPHY: Coronary calcification is present. Left main coronary artery does not exhibit significant obstructive disease. Left anterior descending artery has diffuse mild plaques. Left circumflex artery has diffuse mild plaques. Right coronary artery is dominant and does not exhibit significant obstructive disease. LEFT VENTRICULAR ANGIOGRAPHY: Left ventricular angiography was carried out in the right anterior oblique projection. Global left ventricular systolic function normal. No regional wall motion abnormalities seen. Left ventricular ejection fraction approximately 60% to 65%. CONCLUSIONS: 1. Mild coronary artery disease. 2. Normal global left ventricular systolic function with ejection fraction of 60% to 65%. 3. Mild elevation of left ventricular end-diastolic pressure. DISCUSSION AND RECOMMENDATIONS: Based on results of the study, it appears appropriate to continue a conservative approach. Risk factor modification was reviewed. She has been advised to quit smoking. Outpatient followup is advised. Job ID: [id number] DocumentID: [id number] Dictated Date: 07/10/2019 10:20:00 Public Health Clinical Nurse Specialist Date: 07/10/2019 13:24:00 Dictated By: TERRY MARTIN MD, MA, FACP, FACC,
== END 2019-07-10 13:45 | disposition home or self-care (01) ==
LOC: CATH 06:46 → SDC 10:32 → CATH 13:45
PROVIDERS: ATTEND Internal Medicine Cardiovascular Disease
DX: I25.10 Atherosclerotic heart disease of native coronary artery without angina pectoris (principal); N39.0 Urinary tract infection, site not specified; K59.00 Constipation, unspecified; F41.9 Anxiety disorder, unspecified; I48.0 Paroxysmal atrial fibrillation; I73.9 Peripheral vascular disease, unspecified; M19.90 Unspecified osteoarthritis, unspecified site; I11.0 Hypertensive heart disease with heart failure; I50.9 Heart failure, unspecified; F17.210 Nicotine dependence, cigarettes, uncomplicated; J44.9 Chronic obstructive pulmonary disease, unspecified; F32.9 Major depressive disorder, single episode, unspecified; Z88.2 Allergy status to sulfonamides; Z79.01 Long term (current) use of anticoagulants; Z79.82 Long term (current) use of aspirin; Z79.899 Other long term (current) drug therapy; Z83.3 Family history of diabetes mellitus; Z82.49 Family history of ischemic heart disease and other diseases of the circulatory system; G89.29 Other chronic pain
CPT/HCPCS: 36415; 80053; 80061; 85027; 85610; 85730; 87081; 93458

== ENCOUNTER 2019-07-26 06:16 | Outpatient (CLI) | payer MEDICARE, MEDICAID ==
[~2019-07-26] VITALS: Ht 160 cm; Wt 60.5 kg
[~2019-07-26 06:16] MED LIST changes: +ACET325T49 PO; +ALB0.5V INH; +DOXA2TAB PO; +MORP1CAP12 PO; +MULT-642 PO; +OMEP40CA36 PO; +POLY17PO6 PO; +VITA-189 PO; +ZOLE5INF IV
== END 2019-07-26 09:13 | disposition home or self-care (01) ==
LOC: PREOP 06:16
PROVIDERS: ATTEND Surgery
DX: Z01.818 Encounter for other preprocedural examination (principal)

== ENCOUNTER → 2019-10-12 | Outpatient (CLI) | payer OTHER, MEDICAID ==
[~2019-10-12] MED LIST changes: +CATHETER FLUSH 10 ML SYR IV PRN; +HOLD METFORMIN - RECEIVED CONTRAST 20 ML VIAL IV SCH; +IOHEXOL 350 MG/ML 100 ML (OMNIPAQUE 350) VIAL IV ONE; +NS 100 ML (IVPB) BAG IV ONE; +OMEP-280 PO; -OMEP20CA13 PO; +OMEP40CA27 PO; -OMEP40CA36 PO; +TRM50T PO
--- NOTE | 2019-10-12 12:43 | Diagnostic Imaging Report ---
PROCEDURE: CT neck soft tissue with contrast. TECHNIQUE: Multiple contiguous axial images were obtained through the neck after the administration of contrast. Auto Exposure Controls were utilized during the CT exam to meet ALARA standards for radiation dose reduction. INDICATION: Throat cancer. History of radiation therapy. Sore throat. COMPARISON: CT neck with IV contrast 05/16/2019. FINDINGS: Since the prior exam, there has been interval growth of a markedly irregular mass in the right supraglottic larynx. This is difficult to measure given the irregularity. This likely extends to the level of the vocal cords. An abnormal enhancement abuts the right thyroid cartilage. The thyroid cartilage itself appears stable compared to the prior exam. There is also likely involvement of the epiglottis which is edematous. There is also abnormal enhancement reaching the preepiglottic fat and hyoid on the right. No subglottic involvement is identified. No cervical lymphadenopathy. Thyroid and major salivary glands are unremarkable. Floor of the mouth and tongue base are negative. Advanced spondylotic changes in the cervical spine are greatest at C5-C6. No suspicious osteoblastic or lytic lesions in the cervical spine. IMPRESSION: Interval progression of the mass involving the right suprahyoid larynx, the right vocal cord, right piriform sinus, extends into the preepiglottic fat, epiglottis and abuts the right hyoid and thyroid cartilage. Mineralization within the hyoid and thyroid appear stable compared to the prior. No lymphadenopathy is identified. Dictated by: Dictated on workstation # [id number]
== END ==
LOC: RAD 10:03
PROVIDERS: ATTEND Otolaryngology Otolaryngology/Facial Plastic Surgery
DX: J31.2 Chronic pharyngitis (principal); C32.9 Malignant neoplasm of larynx, unspecified; Z92.3 Personal history of irradiation
CPT/HCPCS: 70491

== ENCOUNTER 2019-10-24 18:22 | Observation (INO) | payer MEDICARE, MEDICAID ==
[~2019-10-24] VITALS: Ht 160 cm; Wt 54.2 kg
[~2019-10-24 18:22] MED LIST changes: -CATHETER FLUSH 10 ML SYR IV PRN; -HOLD METFORMIN - RECEIVED CONTRAST 20 ML VIAL IV SCH; -IOHEXOL 350 MG/ML 100 ML (OMNIPAQUE 350) VIAL IV ONE; -NS 100 ML (IVPB) BAG IV ONE
[2019-10-24] MEDS ORDERED: fentaNYL INJECTION 100 MCG/2 ML AMP IVP STA (18:56)
[2019-10-24] MEDS ORDERED: LACTATED RINGERS 1,000 ML IV ONE (18:56)
--- NOTE | 2019-10-24 19:00 | NUR ---
assumed care of this patient at this time from Khushbu BOB. patient is resting quietly in bed, with call light within reach. monitoring maintained. patient has given permission to speak to her son Marvin Brambila in regards to her care.
[2019-10-24 19:08] LABS: BASOPHILS # (AUTO) 0.1 10^3/uL (0.0-0.1); BASOPHILS % (AUTO) 1 % (0-10); EOSINOPHILS # (AUTO) 0.2 10^3/uL (0.0-0.3); EOSINOPHILS % (AUTO) 3 % (0-10); HEMATOCRIT 36 % (35-52); HEMOGLOBIN 11.7 G/DL (11.5-16.0); LYMPHOCYTES # (AUTO) 1.3 X 10^3 (1.0-4.0); LYMPHOCYTES % (AUTO) 18 % (12-44); MEAN CORPUSCULAR HEMOGLOBIN 28 PG (25-34); MEAN CORPUSCULAR HGB CONC 33 G/DL (32-36); MEAN CORPUSCULAR VOLUME 86 FL (80-99); MEAN PLATELET VOLUME 9.2 FL (7.4-10.4); MONOCYTES # (AUTO) 0.9 X 10^3 (0.0-1.0); MONOCYTES % (AUTO) 13 % (0-12); NEUTROPHILS # (AUTO) 4.5 X 10^3 (1.8-7.8); NEUTROPHILS % (AUTO) 65 % (42-75); PLATELET COUNT 554 10^3/uL (130-400); RED CELL DISTRIBUTION WIDTH 17.1 % (10.0-14.5); WHITE BLOOD COUNT 6.9 10^3/uL (4.3-11.0)
--- NOTE | 2019-10-24 19:18 | ED General ---
General Chief Complaint: General Problems/Pain Stated Complaint: THROAT CANCER,NOT EATING/DRINKING Nursing Triage Note: PT RECENTLY HAD A REDIAGNOSIS OF THROAT CANCER. WAITING ON AN APPT AT . PT HAS NOT BEEN EATING OR DRINKING X3-4 DAYS AND FAMILY THINKS SHE IS DEHYDRATED. PT STATES SHE JUST WANTED TO STAY IN BED. Nursing Sepsis Screen: No Definite Risk Source of Information: Patient Exam Limitations: No Limitations History of Present Illness Date Seen by Provider: Oct 24, 2019 Time Seen by Provider: 18:56 Initial Comments Here with report of generalized weakness that it's gotten worse over the past few days. Recently rediagnosed with throat cancer. She states that her throat hurts quite a bit she is having difficulty swallowing. She is able to take fluids and medicines with difficulty. She has not able to eat solid foods. She states that mucus is here and get him caught up. She does have COPD/emphysema and does continue to smoke. Denies vomiting or diarrhea. Does report constipation and did take a laxative and she is waiting for results on that. Timing/Duration: 2-3 Days, Getting Worse Severity: Moderate Modifying Factors: improves with Rest Associated Systoms: No Chest Pain, No Cough, No Fever/Chills; Loss of Appetite; No Nausea/Vomiting, No Shortness of Air; Weakness Allergies and Home Medications Allergies Coded Allergies: hydrocodone (Verified Allergy, Mild, Pt has received Morphine in the past, 07/27/19) warfarin (Verified Adverse Reaction, Intermediate, BLISTERS, 06/28/18) Home Medications Acetaminophen 325 Mg Tablet, 650 MG PO Q6H PRN for PAIN-MILD, (Reported) Albuterol Sulfate 1 Puff Puff, 1 PUFF IH Q4H PRN for SHORTNESS OF BREATH, (Reported) Albuterol Sulfate 2.5 Mg/0.5 Ml Vial.neb, 2.5 MG INH Q4H, (Reported) Aspirin 81 Mg Tablet.dr, 81 MG PO Q48H, (Reported) Budesonide/Formoterol Fumarate 10.2 Gm Hfa.aer.ad, 2 PUFF INH BID, (Reported) Dabigatran Etexilate Mesylate 150 Mg Capsule, 150 MG PO BID, (Reported) Doxazosin Mesylate 2 Mg Tablet, 2 MG PO HS, (Reported) Duloxetine HCl 60 Mg Capsule.dr, 60 MG PO BID, (Reported) Fluticasone Propionate 9.9 Ml [place].susp, 1 SPRAY NS DAILY, (Reported) Furosemide 20 Mg Tablet, 20 MG PO DAILY, (Reported) Levothyroxine Sodium 75 Mcg Tablet, 75 MCG PO DAILY, (Reported) Loratadine 10 Mg Tablet, 10 MG PO DAILY, (Reported) Methocarbamol 750 Mg Tablet, 750 MG PO TID, (Reported) Metoprolol Succinate 200 Mg Tab.er.24h, 200 MG PO DAILY, (Reported) Mirtazapine 30 Mg Tablet, 30 MG PO HS, (Reported) Morphine Sulfate/Naltrexone 1 Each Cap.er.po, 1 EACH PO DAILY, (Reported) Multivitamin 1 Each Tablet, 1 EACH PO 1200, (Reported) Omeprazole 40 Mg Capsule.dr, 40 MG PO DAILY, (Reported) Polyethylene Glycol 3350 17 Gm Powd.pack, 17 GM PO DAILY PRN for CONSTIPATION- 2ND LINE, (Reported) Umeclidinium [place] 62.5 Mcg Blst.w.dev, 1 PUFF IH DAILY, (Reported) Vitamin B Complex 1 Each Tablet, 1 EACH PO 1200, (Reported) Zoledronate 5 Mg/100 Ml Btl, 5 MG IV YEARLY, (Reported) Patient Home Medication List Home Medication List Reviewed: Yes Review of Systems Review of Systems Constitutional: see HPI; No chills, No fever EENTM: throat pain; No nose congestion Respiratory: no symptoms reported Cardiovascular: no symptoms reported Gastrointestinal: constipation, loss of appetite; No nausea, No vomiting Genitourinary: no symptoms reported Musculoskeletal: no symptoms reported All Other Systems Reviewed Negative Unless Noted: Yes Past Pgrciyj-Kdhsjp-Zopeuo Hx Patient Social History Alcohol Use: Denies Use Recreational Drug Use: No Smoking Status: Current Everyday Smoker Type Used: Cigarettes Recent Foreign Travel: No Contact w/Someone Who Travel: No Recent Infectious Disease Expo: No Recent Hopitalizations: No Physical Abuse: No Sexual Abuse: No Mistreated: No Fear: No Immunizations Up To Date Tetanus Booster (TDap): Unknown Date of Pneumonia Vaccine: Jun 23, 2015 Date of Influenza Vaccine: Jun 01, 2019 Seasonal Allergies Seasonal Allergies: Yes Past Medical History Surgeries: Yes (ULCER SURG) Abdominal, Gallbladder Respiratory: Yes (O2 2L CONTINUOS) Pneumonia, Chronic Bronchitis, COPD, Emphysema Currently Using CPAP: No Currently Using BIPAP: No Cardiac: Yes Atrial Fibrillation, Chronic Edema/Swelling, Coronary Artery Disease, Hypertension Neurological: No Reproductive Disorders: No Female Reproductive Disorders: Denies Sexually Transmitted Disease: No HIV/AIDS: No Genitourinary: No Gastrointestinal: Yes (HX BLOOD IN STOOLS) Gastroesophageal Reflux, Noguera's Esophagus, Chronic Constipation, Polyps, Ulcer Musculoskeletal: Yes Degenerate Disk Disease, Arthritis, Chronic Back Pain Endocrine: Yes Hypothyroidsim HEENT: No Loss of Vision: Bilateral Hearing Impairment: Denies Cancer: Yes (throat) Did You Recieve Any Treatments: Yes What Type of Treatment Did You: Chemotherapy, Radiation Psychosocial: Yes Anxiety Integumentary: No Blood Disorders: Yes (anemia) Adverse Reaction/Blood Tranf: No (N/A) Family Medical History Reviewed Nursing Family Hx Arthritis 19 FATHER 19 MOTHER Cardiovascular disease 19 FATHER Diabetes mellitus 19 FATHER No Pertinent Family Hx Physical Exam Vital Signs Vital Signs - First Documented 10/24/19 18:25 Temp 36.5 Pulse 69 Resp 16 B/P (MAP) 113/67 (82) Pulse Ox 91 O2 Delivery Room Air Capillary Refill : Less Than 3 Seconds Height, Weight, BMI Height: 5'3.00" Weight: 143lbs. 9.0oz. 65.809879mf; 20.00 BMI Method:Stated General Appearance: No Apparent Distress, WD/WN HEENT: PERRL/EOMI, Pharynx Normal Neck: Non Tender, Supple Respiratory: Lungs Clear, Normal Breath Sounds Cardiovascular: Regular Rate, Rhythm, No Murmur Gastrointestinal: Non Tender, Soft Extremity: Normal Range of Motion, Non Tender Neurologic/Psychiatric: Alert, Oriented x3 Skin: Normal Color, Warm/Dry Progress/Results/Core Measures Suspected Sepsis Recent Fever Within 48 Hours: No Infection Criteria Present: None New/Unexplained Altered Menta: No Sepsis Screen: No Definite Risk SIRS Temperature: Pulse: 69 Respiratory Rate: 16 Laboratory Tests 10/24/19 18:55: White Blood Count 6.9 Blood Pressure 113 /67 Mean: 82 Laboratory Tests 10/24/19 18:55: Creatinine 0.80, Platelet Count 554H, Total Bilirubin 0.2 Results/Orders Lab Results Laboratory Tests Test 10/24/19 18:55 10/24/19 20:14 Range/Units White Blood Count 6.9 4.3-11.0 10^3/uL Red Blood Count 4.16 L 4.35-5.85 10^6/uL Hemoglobin 11.7 11.5-16.0 G/DL Hematocrit 36 35-52 % Mean Corpuscular Volume 86 80-99 FL Mean Corpuscular Hemoglobin 28 25-34 PG Mean Corpuscular Hemoglobin Concent 33 32-36 G/DL Red Cell Distribution Width 17.1 H 10.0-14.5 % Platelet Count 554 H 130-400 10^3/uL Mean Platelet Volume 9.2 7.4-10.4 FL Neutrophils (%) (Auto) 65 42-75 % Lymphocytes (%) (Auto) 18 12-44 % Monocytes (%) (Auto) 13 H 0-12 % Eosinophils (%) (Auto) 3 0-10 % Basophils (%) (Auto) 1 0-10 % Neutrophils # (Auto) 4.5 1.8-7.8 X 10^3 Lymphocytes # (Auto) 1.3 1.0-4.0 X 10^3 Monocytes # (Auto) 0.9 0.0-1.0 X 10^3 Eosinophils # (Auto) 0.2 0.0-0.3 10^3/uL Basophils # (Auto) 0.1 0.0-0.1 10^3/uL Sodium Level 134 L 135-145 MMOL/L Potassium Level 4.7 3.6-5.0 MMOL/L Chloride Level 93 L 98-107 MMOL/L Carbon Dioxide Level 31 21-32 MMOL/L Anion Gap 10 5-14 MMOL/L Blood Urea Nitrogen 13 7-18 MG/DL Creatinine 0.80 0.60-1.30 MG/DL Estimat Glomerular Filtration Rate > 60 BUN/Creatinine Ratio 16 Glucose Level 90 70-105 MG/DL Calcium Level 9.0 8.5-10.1 MG/DL Corrected Calcium 9.4 8.5-10.1 MG/DL Magnesium Level 2.4 1.6-2.4 MG/DL Total Bilirubin 0.2 0.1-1.0 MG/DL Aspartate Amino Transf (AST/SGOT) 28 5-34 U/L Alanine Aminotransferase (ALT/SGPT) 15 0-55 U/L Alkaline Phosphatase 140 H 40-136 U/L C-Reactive Protein High Sensitivity 2.90 H 0.00-0.50 MG/DL Total Protein 7.1 6.4-8.2 GM/DL Albumin 3.5 3.2-4.5 GM/DL Lipase 9 8-78 U/L Urine Color YELLOW Urine Clarity CLEAR Urine pH 5.5 5-9 Urine Specific [place] 1.015 L 1.016-1.022 Urine Protein NEGATIVE NEGATIVE Urine Glucose (UA) NEGATIVE NEGATIVE Urine Ketones NEGATIVE NEGATIVE Urine Nitrite NEGATIVE NEGATIVE Urine Bilirubin NEGATIVE NEGATIVE Urine Urobilinogen 0.2 < = 1.0 MG/DL Urine Leukocyte Esterase NEGATIVE NEGATIVE Urine RBC (Auto) NEGATIVE NEGATIVE Urine RBC NONE /HPF Urine WBC NONE /HPF Urine Squamous Epithelial Cells NONE /HPF Urine Crystals PRESENT H /LPF Urine Amorphous Sediment RARE NATASHA URATES H /LPF Urine Bacteria TRACE /HPF Urine Casts PRESENT /LPF Urine Hyaline Casts 2-5 H /LPF Urine Mucus SMALL H /LPF Urine Culture Indicated NO Micro Results Microbiology 10/24/19 Influenza Types A,B Antigen (PASTOR) - Final, Complete My Orders Orders - KYLER SETH MD Cbc With Automated Diff (10/24/19 18:56) Comprehensive Metabolic Panel (10/24/19 18:56) Hs C Reactive Protein (10/24/19 18:56) Lipase (10/24/19 18:56) Magnesium (10/24/19 18:56) Ua Culture If Indicated (10/24/19 18:56) Ed Iv/Invasive Line Start (10/24/19 18:56) Lactated Ringers (Lr 1000 Ml Iv Solution (10/24/19 18:56) Chest 1 View, Ap/Pa Only (10/24/19 18:56) Fentanyl Injection (Sublimaze Injection (10/24/19 18:56) Influenza A And B Antigens (10/24/19 19:46) Ketorolac Injection (Toradol Injection) (10/24/19 20:17) Hydromorphone Injection (Dilaudid Inject (10/24/19 20:30) Ed Iv/Invasive Line Start (10/24/19 20:44) D5 Ns 1000 Ml Iv Solution (Dextrose 5%/0 (10/24/19 20:44) Medications Given in ED Current Medications Medications Dose Ordered Sig/Astrid Route Start Time Stop Time Status Last Admin Dose Admin Dextrose/Sodium Chloride 1,000 ml @ 0 mls/hr Q0M ONCE IV 10/24/19 20:44 10/24/19 20:47 DC 10/24/19 20:53 1,000 MLS/HR Hydromorphone HCl 1 mg ONCE ONCE IV 10/24/19 20:30 10/24/19 20:31 DC 10/24/19 20:26 1 MG Lactated Ringer's 1,000 ml @ 0 mls/hr Q0M ONCE IV 10/24/19 18:56 10/24/19 19:02 DC 10/24/19 19:09 0 MLS/HR Vital Signs/I&O 10/24/19 18:25 Temp 36.5 Pulse 69 Resp 16 B/P (MAP) 113/67 (82) Pulse Ox 91 O2 Delivery Room Air Capillary Refill : Less Than 3 Seconds Blood Pressure Mean: 82 Progress Note : Progress Note Seen and evaluated. IV, labs, UA, chest x-ray, LR 1 L bolus and fentanyl 75 g IV ordered. Monitor patient. 2014: UA obtained by straight catheter. Labs are reviewed. Patient states the pain was a little better but now is worse again. We will repeat dosing with Dilaudid 1 mg IV as well as Toradol 15 mg IV. Monitor patient. 2109: Patient's pain is actually improved somewhat. Patient is very concerned about her ability at home due to dehydration. I would prefer to continue gentle hydration overnight and adequate pain control if possible. I did discuss the case with Dr. Clements. She has accepted the patient for admission, observation status. Patient is on Pradaxa for fibrillation for atrial fibrillation and does not require DVT prophylaxis. We will continue Pradaxa as well as SCDs. I will continue hydration as well as pain medications. I did discuss this with the patient was appreciative as well as the family who is appreciative. She does have appointment at on Tuesday and after hydration till tomorrow, will likely be able to be discharged to home to follow-up at on Tuesday. Patient and family were in agreement and appreciative of Dr. Clements's willingness to admit observation. Diagnostic Imaging Diagonstic Imaging: Xray Plain Films/CT/US/NM/MRI: chest Comments [facility] [place], [place] NAME: CHAS DRAPER [facility] REC#: [id number] PT STATUS: REG ER : 1945 PHYSICIAN: KYLER SETH MD ADMIT DATE: 10/24/19/ER Draft Date of Exam:10/24/19 CHEST 1 VIEW, AP/PA ONLY INDICATION: Head and neck cancer Upright portable AP view of the chest is obtained. Comparison is made to the study of 06/28/2018. There is mild cardiomegaly. There is air trapping, bilaterally. Prominent interstitial markings are present in both lungs. There is no evidence of pneumothorax, focal consolidation or significant pleural fluid. IMPRESSION: Stable cardiomegaly and probable background COPD. No definite acute abnormality is seen. Dictated on workstation # [id number] Dict: 10/24/191947 Trans: 10/24/191951 WOODY [id number] Interpreted by: LISBETH NGUYEN MD Electronically signed by: Departure Communication (Admissions) Time/Spoke to Admitting Phy: 21:10 Impression Primary Impression: Dehydration Additional Impressions: Intractable pain Throat cancer Disposition: ADMITTED INPATIENT Condition: Stable Admissions Decision to Admit Reason: Admit from ER (General) Decision to Admit/Date: Oct 24, 2019 Time/Decision to Admit Time: 21:10 Departure-Patient Inst. Referrals: OBINNA PRASAD MD (PCP/Family) Primary Care Physician KYLER SETH MD Oct 24, 2019 19:18
[2019-10-24 19:26] LABS: ALANINE AMINOTRANSFERASE 15 U/L (0-55); ALBUMIN 3.5 GM/DL (3.2-4.5); ALKALINE PHOSPHATASE 140 U/L (40-136); BILIRUBIN,TOTAL 0.2 MG/DL (0.1-1.0); BUN/CREATININE RATIO 16; CARBON DIOXIDE 31 MMOL/L (21-32); CHLORIDE 93 MMOL/L (98-107); GFR ESTIMATED > 60; GLUCOSE 90 MG/DL (70-105); LIPASE 9 U/L (8-78); MAGNESIUM 2.4 MG/DL (1.6-2.4); POTASSIUM 4.7 MMOL/L (3.6-5.0); SODIUM 134 MMOL/L (135-145); TOTAL PROTEIN 7.1 GM/DL (6.4-8.2)
--- NOTE | 2019-10-24 19:53 | Diagnostic Imaging Report ---
INDICATION: Head and neck cancer Upright portable AP view of the chest is obtained. Comparison is made to the study of 06/28/2018. There is mild cardiomegaly. There is air trapping, bilaterally. Prominent interstitial markings are present in both lungs. There is no evidence of pneumothorax, focal consolidation or significant pleural fluid. IMPRESSION: Stable cardiomegaly and probable background COPD. No definite acute abnormality is seen. Dictated by: Dictated on workstation # [id number]
[2019-10-24] MEDS ORDERED: KETOROLAC 30 MG/ML VIAL IVP STA (20:17)
[2019-10-24 20:23] LABS: BILIRUBIN,URINE NEGATIVE (NEGATIVE); CLARITY,URINE CLEAR; COLOR,URINE YELLOW; GLUCOSE, URINE (UA) NEGATIVE (NEGATIVE); KETONES,URINE NEGATIVE (NEGATIVE); LEUKOCYTE ESTERASE ,URINE NEGATIVE (NEGATIVE); NITRITE,URINE NEGATIVE (NEGATIVE); PH,URINE 5.5 (5-9); PROTEIN,URINE NEGATIVE (NEGATIVE)
[2019-10-24] MEDS ORDERED: HYDROmorphone 2 MG/ML VIAL (DILAUDID) IV ONE (20:30)
[2019-10-24 20:31] LABS: AMORPHOUS SEDIMENT,UR RARE AMOR URATES /LPF; BACTERIA,URINE TRACE /HPF
[2019-10-24] MEDS ORDERED: D5 NS 1000 ML IV SOLUTION 1,000 ML IV ONE (20:44)
--- NOTE | 2019-10-24 20:44 | NUR ---
CALLED DAUGHTER IN LAW BACK AND UPDATED FAMILY ON PATIENT CONDITION PER PATIENT REQUEST.
--- NOTE | 2019-10-24 21:10 | NUR ---
NOTIFIED RN CALL CENTER FOR BED ON MED SURG PER DR SETH
--- NOTE | 2019-10-24 21:59 | NUR ---
CALLED TO GIVE REPORT , NURSE WILL CALL BACK
--- NOTE | 2019-10-24 22:45 | NUR ---
CHAS DRAPER admitted to room 413-1, with an admitting diagnosis of DEHYDRATION AND INTRACTABLE CANCER PAIN, on 10/24/19 from ED via STRETCHER, accompanied by ED STAFF. CHAS DRAPER introduced to surroundings, call light, bed controls, phone, TV, temperature control, lights, meal times, smoking policy, visitor policy, side rail policy, bathrooms and showers. Patient Rights given to patient in the handbook. CHAS DRAPER verbalizes understanding that [facility] is not responsible for the loss or damage to any personal effects or valuables that are kept in the patients possession during their hospitalization. CHAS DRAPER verbalizes understanding of Interdisciplinary Patient Education. Patient and/or family were informed about the Rapid Response Team and its purpose.
[2019-10-24 22:50] VITALS: BP 137/67
[2019-10-24] MEDS ORDERED: ONDANSETRON 4 MG/2 ML (SDV) Z0FRAN IV PRN (23:15)
[2019-10-24] MEDS ORDERED: KETOROLAC 15 MG/ML VIAL IVP PRN (23:15)
[2019-10-24 23:40] VITALS: BP_SYST 137; BP_SYST 142; BP_DIAS 64; BP_DIAS 67
[2019-10-24] MEDS: LACTATED RINGERS 1,000 ML IV SCH (23:50)
[2019-10-25] MEDS: HYDROmorphone 2 MG/ML VIAL (DILAUDID) IV PRN ×4 (00:08→15:10)
[2019-10-25 04:20] VITALS: BP 137/67
[2019-10-25] MEDS ORDERED: RT-ALBUTEROL/IPRATROPIUM 3 ML (DUONEB) VIAL INH PRN (04:30)
[2019-10-25 04:40] VITALS: BP 121/56
[2019-10-25 06:25] LABS: BASOPHILS # (AUTO) 0.1 10^3/uL (0.0-0.1); BASOPHILS % (AUTO) 1 % (0-10); EOSINOPHILS # (AUTO) 0.2 10^3/uL (0.0-0.3); EOSINOPHILS % (AUTO) 3 % (0-10); HEMATOCRIT 30 % (35-52); HEMOGLOBIN 9.6 G/DL (11.5-16.0); LYMPHOCYTES # (AUTO) 1.2 X 10^3 (1.0-4.0); LYMPHOCYTES % (AUTO) 22 % (12-44); MEAN CORPUSCULAR HEMOGLOBIN 28 PG (25-34); MEAN CORPUSCULAR HGB CONC 32 G/DL (32-36); MEAN CORPUSCULAR VOLUME 89 FL (80-99); MEAN PLATELET VOLUME 8.6 FL (7.4-10.4); MONOCYTES # (AUTO) 0.8 X 10^3 (0.0-1.0); MONOCYTES % (AUTO) 14 % (0-12); NEUTROPHILS # (AUTO) 3.3 X 10^3 (1.8-7.8); NEUTROPHILS % (AUTO) 59 % (42-75); PLATELET COUNT 412 10^3/uL (130-400); RED CELL DISTRIBUTION WIDTH 16.9 % (10.0-14.5); WHITE BLOOD COUNT 5.5 10^3/uL (4.3-11.0)
[2019-10-25 07:03] LABS: ALANINE AMINOTRANSFERASE 10 U/L (0-55); ALBUMIN 2.9 GM/DL (3.2-4.5); ALKALINE PHOSPHATASE 124 U/L (40-136); BILIRUBIN,TOTAL 0.2 MG/DL (0.1-1.0); BUN/CREATININE RATIO 15; CALCIUM 7.9 MG/DL (8.5-10.1); CARBON DIOXIDE 30 MMOL/L (21-32); CHLORIDE 97 MMOL/L (98-107); CREATININE SERUM 0.61 MG/DL (0.60-1.30); GFR ESTIMATED > 60; GLUCOSE 84 MG/DL (70-105); POTASSIUM 4.1 MMOL/L (3.6-5.0); SODIUM 134 MMOL/L (135-145); TOTAL PROTEIN 5.2 GM/DL (6.4-8.2)
[2019-10-25] MEDS: LACTATED RINGERS 1,000 ML IV SCH (07:47)
[2019-10-25 08:00] VITALS: BP 133/74
[2019-10-25] MEDS: RT-ALBUTEROL/IPRATROPIUM 3 ML (DUONEB) VIAL INH SCH ×3 (08:18→14:52)
[2019-10-25] MEDS ORDERED: doxAzosin 2 MG (CARDURA) TAB PO SCH ×2 (09:00→21:00)
[2019-10-25] MEDS ORDERED: meTOprolol SUCCINATE 100 MG (TOPROL XL) TAB PO SCH (09:00)
[2019-10-25] MEDS ORDERED: DULoxetine 30 MG (CYMBALTA) CAP PO SCH ×2 (09:00→21:00)
[2019-10-25] MEDS ORDERED: PANTOPRAZOLE 40 MG (PROTONIX) VIAL IV SCH (09:00)
[2019-10-25] MEDS ORDERED: DABIGATRAN 150 MG (PRADAXA) CAPSULE PO SCH ×2 (09:00→21:00)
[2019-10-25] MEDS ORDERED: morphine ER 15 MG (MS CONTIN) TAB PO SCH (09:00)
[2019-10-25] MEDS ORDERED: DOXA2TAB2 PO (09:49)
[2019-10-25] MEDS ORDERED: FLUT16SP22 NS (09:49)
[2019-10-25] MEDS ORDERED: POLY238P32 PO (09:49)
[2019-10-25] MEDS ORDERED: ALBU2.5V4 NEB (09:49)
[2019-10-25] MEDS ORDERED: MORP-68 PO (09:50)
[2019-10-25] MEDS ORDERED: ALBU18HF2 INH (09:50)
[2019-10-25] MEDS ORDERED: CHOL200059 PO (09:50)
--- NOTE | 2019-10-25 09:51 | NUR ---
SPOKE WITH THE PATIENT AND WENT OVER THE EXT MED HX WITH HER. SHE VERIFIED HOW SHE TAKES EACH MEDICATION AND ALL HER OTC MEDS. NOTHING HAS CHANGED SINCE HER LAST VISIT EXCEPT HER PAIN MEDICATION IS NOW MORPHINE.
[2019-10-25] MEDS ORDERED: morphine ER 15 MG (MS CONTIN) TAB PO NR (10:45)
--- NOTE | 2019-10-25 11:05 | History & Physical-Hospitalist ---
History of Present Illness HPI/Chief Complaint CC: Dehydration from throat cancer HPI: This is a 74yoWF of [facility] who is seeing Dr. Huff in need of a laryngectomy due to throat cancer. Pt was unable to eat or drink, placed on IV fluids over night. She does have severe constipation we will initiate soap suds enema for, and [facility] appointment will be arranged. Pt maintained on anticoagulation so that was restarted for DVT prophylaxis. Source: patient Exam Limitations: no limitations Date Seen 10/25/19 Time Seen by a Provider: 09:30 Attending Physician Kierra Hernandez Bethany N MD Referring Physician Date of Admission Oct 24, 2019 at 21:10 Home Medications & Allergies Home Medications Reviewed patient Home Medication Reconciliation performed by pharmacy medication reconciliations central service technician and/or nursing. Patients Allergies have been reviewed. Allergies Allergies Coded Allergies hydrocodone (Verified Allergy, Mild, Pt has received Morphine in the past, 07/27/19) warfarin (Verified Adverse Reaction, Intermediate, BLISTERS, 06/28/18) Past Jhhqbit-Pnytun-Omincz Hx Past Med/Social Hx: Reviewed Nursing Past Med/Soc Hx, Reviewed and Corrections made Patient Social History Marrital Status: single Employed/Student: retired Alcohol Use: Denies Use Recreational Drug Use: No Smoking Status: Current Everyday Smoker Type Used: Cigarettes Recent Foreign Travel: No Contact w/other who traveled: No Recent Hopitalizations: No Recent Infectious Disease Expo: No Immunizations Up To Date Tetanus Booster (TDap): Unknown Date of Pneumonia Vaccine: Jun 23, 2015 Date of Influenza Vaccine: Jun 01, 2019 Seasonal Allergies Seasonal Allergies: Yes Past Medical History Surgeries: Abdominal, Gallbladder Currently Using CPAP: No Currently Using BIPAP: No Cardiac: Atrial Fibrillation, Chronic Edema/Swelling, Coronary Artery Disease, Hypertension Reproductive: No Sexually Transmitted Disease: No HIV/AIDS: No Female Reproductive Disorders: Denies Gastrointestinal: Gastroesophageal Reflux, Noguera's Esophagus, Chronic Constipation, Polyps, Ulcer Musculoskeletal: Degenerate Disk Disease, Arthritis, Chronic Back Pain Endocrine: Hypothyroidsim Loss of Vision: Bilateral Hearing Impairment: Denies Cancer: Esophageal Did You Recieve Any Treatments: Yes What Type of Treatment Did You: Chemotherapy, Radiation Psychosocial: Anxiety History of Blood Disorders: Yes (anemia) Adverse Reaction to Blood Gutierrez: No (N/A) Family History Reviewed Nursing Family Hx Arthritis 19 FATHER 19 MOTHER Cardiovascular disease 19 FATHER Diabetes mellitus 19 FATHER No Pertinent Family Hx Review of Systems Constitutional: see HPI, malaise, weakness EENTM: throat pain, throat swelling Physical Exam Physical Exam Vital Signs Vital Signs - First Documented 10/24/19 10/24/19 18:25 22:50 Temp 36.5 Pulse 69 Resp 16 B/P (MAP) 113/67 (82) Pulse Ox 91 O2 Delivery Room Air O2 Flow Rate 2.50 Capillary Refill : Less Than 3 Seconds Height, Weight, BMI Height: 5'3.00" Weight: 143lbs. 9.0oz. 65.611436sb; 21.17 BMI Method:Stated General Appearance: No Apparent Distress, WD/WN, Chronically ill Eyes: Right Eye Normal Inspection, Right Eye PERRL HEENT: PERRL/EOMI, Normal ENT Inspection, Pharynx Normal, Moist Mucous Membranes Neck: Full Range of Motion, Normal Inspection, Non Tender Respiratory: Chest Non Tender, Lungs Clear, Normal Breath Sounds, No Accessory Muscle Use, No Respiratory Distress Cardiovascular: Regular Rate, Rhythm, No Edema, No Gallop, No JVD, No Murmur, Normal Peripheral Pulses Gastrointestinal: Normal Bowel Sounds, No Organomegaly, No Pulsatile Mass, Non Tender, Soft Back: Normal Inspection, No CVA Tenderness, No Vertebral Tenderness Extremity: Normal Capillary Refill, Normal Inspection, Normal Range of Motion, Non Tender, No Calf Tenderness, No Pedal Edema Neurologic/Psychiatric: Alert, Oriented x3, No Motor/Sensory Deficits, Normal Mood/Affect Skin: Normal Color, Warm/Dry Lymphatic: No Adenopathy Results Results/Procedures Labs Laboratory Tests 10/24/19 18:55 10/25/19 06:05 Patient resulted labs reviewed. Assessment/Plan Admission Diagnosis Assessment: Dehydration due to poor PO intake due to esophageal cancer Chronic pain Smoker Plan: IVF Increase MS Contin from 15mg to 30mg Monitor BP Admission Status: Observation Diagnosis/Problems Diagnosis/Problems (1) Dehydration Status: Acute (2) Mass of epiglottis (3) History of Noguera's esophagus Clinical Quality Measures DVT/VTE Risk/Contraindication: Risk Factor Score Per Nursin RFS Level Per Nursing on Admit: 3=High KIERRA HERNANDEZ DO Oct 25, 2019 11:05
[2019-10-25] MEDS ORDERED: ENOXAPARIN 40 MG/0.4 ML (LOVENOX) SYR SC SCH (11:15)
[2019-10-25 12:00] VITALS: BP 146/77
[2019-10-25] MEDS ORDERED: MORP-69 PO (12:16)
[2019-10-25] MEDS ORDERED: ACETAMINOPHEN 325 MG TABLET PO PRN (12:30)
[2019-10-25] MEDS ORDERED: [UNRECOGNIZED DRUG - OTHER] IV SCH (12:30)
[2019-10-25] MEDS ORDERED: NON-FORMULARY MEDICATION 1 EA EA (Vitamin B Complex (B Complex) 1 TAB) PO PRN (12:30)
[2019-10-25] MEDS ORDERED: polyethylene glycoL POWDER 17 GM (MIRALAX) PACK PO PRN (12:30)
[2019-10-25] MEDS ORDERED: ASPIRIN E.C. 81 MG (ECOTRIN) TAB PO SCH (12:30)
[2019-10-25] MEDS ORDERED: RT-ALBUTEROL SULF 2.5 MG/3 ML PRE-MIX VIAL IH PRN (12:30)
[2019-10-25] MEDS ORDERED: RT-ALBUTEROL SULF 2.5 MG/3 ML PRE-MIX VIAL INH PRN (12:30)
[2019-10-25] MEDS ORDERED: METHOCARBAMOL 750 MG (ROBAXIN) TAB PO SCH (13:00)
--- NOTE | 2019-10-25 13:22 | NUR ---
"RD ASSESSMENT PMHx: COPD; afib; CAD; HTN; GERD; Noguera's esophagus; chronic constipation; hypothyroidism; CA(throat) PT INTERACTION: Pt was awake and pleasant during consult for MST score. Pt states current appetite is poor and has been this way for the past 1-2w. Note PO intake of 25% x1meal, per chart review. Pt states following a regular diet at home, and currently has difficulty swallowing d/t coughing up mucus. Pt sates no recent issues with n/v at this time. Pt states recent issues with constipation and that her last BM was over a week ago. Note pt not currently on bowel regimen per chart review. Pt states recent wt loss, but unsure of amount/timeframe. Note 14# wt loss x2mon, per chart review. This is significant at 11% wt loss. Given pt's poor PO intake and wt hx, pt meets criteria for malnutrition per ASPEN guidelines. ABNORMAL NUTRITION-RELATED LAB VALUES LOW: Na 134; Cl 97; Ca 7.9; Pro 5.2; alb 2.9 HIGH: Est. kcal needs: 8847-9101 kcal | 30-35 kcal/kg Est. Pro needs: 65-81 g Pro | 1.2-1.5 g Pro/kg PES STATEMENT: Inadequate oral intake (NI-2.1) related to loss of appetite | difficulty swallowing | constipation as evidenced by pt interview | PO intake 25% x1meal INTERVENTION: Continue with current diet order of Clear Liquid diet. Continue with current supplementation order of Ensure Clear with meals TID. Provides 250 kcal and 8 g Pro per serving. Pt may benefit from more aggressive bowel regimen if constipation persists. Pt may benefit from swallow evaluation to determine appropriate consistency of foods/liquids. Pt may be a candidate for enteral nutrition if PO intake continues to decline d/t difficulty swallowing. Will continue to follow and reassess as pt needs and status change. MONITOR/EVALUATE: PO Intake; Plan of Care; Hydration Status; Weight Status; Lab Values Tino Beckman, MS, RD, LD"
--- NOTE | 2019-10-25 15:01 | NUR ---
RT spoke with RN about patients O2 Qualification. RN stated that he wasn't sure when the patient would be leaving due to having Heart issues going on at this time. RN said it wouldn't be a bad idea to wait to do the O2 qualification since patient is extremely SOB and being tachycardic. Addendum: 10/25/19 at 1731 by MEAGHAN CORTEZ RT THIS WAS CHARTED ON THE WRONG PT. THIS RT IS CORRECTING THE CHARTING.
--- NOTE | 2019-10-25 15:17 | NUR ---
PT REQUESTING TO BE DISCHARGED WITH DILAUDID FOR THROAT PAIN. PT HAS FREQUENTLY PT HOME DOSE OF 15MG PO MORPHINE BID WAS CHANGED TO 30MG BID THIS AM BY DR HERNANDEZ. PT REPORTS MORPHINE IS FOR HER BACK AND DOES NOT HELP HER THROAT. PT ALSO VERY ANXIOUS AND REQUESTING SOMETHING FOR ANXIETY. DR HERNANDEZ NOTIFIED. NO NEW ORDERS RECEIVED. PT INSTRUCTED TO FOLLOW UP WITH PRIMARY WHO PRESCRIBED THE MORPHINE. PT AWAITING ON RIDE FOR DISCHARGE.
[2019-10-25 16:00] VITALS: BP 125/61
--- NOTE | 2019-10-25 17:20 | NUR ---
Pt has appt. with [facility] for recently diagnosed throat cancer. Son made appt. and is transporting her to app tomorrow. Pt requesting Ensure supplement and travel assistance. Provided Ensure and gas assistance through our [facility] program.
[2019-10-25] MEDS ORDERED: RT-ADVAIR HFA 115/21 MCG PER PUFF IH SCH (20:00)
[2019-10-25] MEDS ORDERED: MIRTAZAPINE 15 MG (REMERON) TAB PO SCH ×2 (21:00)
[2019-10-25] MEDS ORDERED: morphine ER 30 MG (MS CONTIN) TAB PO SCH (21:00)
[2019-10-26] MEDS ORDERED: LEVOTHYROXINE 75 MCG (LEVOTHROID) TABLET PO SCH (06:30)
[2019-10-26] MEDS ORDERED: MULTIVIT W/MINERALS TAB (THERAGRAN M) PO SCH (07:00)
[2019-10-26] MEDS ORDERED: UMECLIDINIUM BROMIDE (INCRUSE ELLIPTA) 7'S IH SCH (08:00)
[2019-10-26] MEDS ORDERED: LORATADINE (CLARITIN) 10 MG TAB PO SCH (09:00)
[2019-10-26] MEDS ORDERED: PANTOPRAZOLE 40 MG (PROTONIX) TAB PO SCH (09:00)
[2019-10-26] MEDS ORDERED: FLUTICASONE NASAL SPRAY (FLONASE) 16 GM BTL NS SCH (09:00)
[2019-10-26] MEDS ORDERED: meTOprolol SUCCINATE 100 MG (TOPROL XL) TAB PO SCH (09:00)
[2019-10-26] MEDS ORDERED: VITAMIN D3 1,000 UNITS (CHOLECALCIFEROL) TABLET PO SCH (09:00)
--- NOTE | 2019-10-26 14:32 | Physician Query-Final Dx ---
JUSTINA BENJAMIN 10/26/19 1432: Final Diagnosis Give Final Diagnosis Please give Final Diagnosis JARED HERNANDEZ DO 10/26/19 1523: Final Diagnosis Give Final Diagnosis Dehydration JUSTINA BENJAMIN Oct 26, 2019 14:32 JARED HERNANDEZ DO Oct 26, 2019 15:23
== END 2019-10-25 17:30 | disposition home or self-care (01) ==
LOC: EDUNIT# 18:22 → ER 18:23 → 4TH 21:10
PROVIDERS: ADMIT Internal Medicine; ATTEND Internal Medicine
DX: E86.0 Dehydration (principal); F17.210 Nicotine dependence, cigarettes, uncomplicated; I48.91 Unspecified atrial fibrillation; I25.10 Atherosclerotic heart disease of native coronary artery without angina pectoris; I10 Essential (primary) hypertension; K21.9 Gastro-esophageal reflux disease without esophagitis; K59.09 Other constipation; M19.90 Unspecified osteoarthritis, unspecified site; G89.29 Other chronic pain; F41.9 Anxiety disorder, unspecified; D64.9 Anemia, unspecified; J43.9 Emphysema, unspecified; Z92.21 Personal history of antineoplastic chemotherapy; Z85.818 Personal history of malignant neoplasm of other sites of lip, oral cavity, and pharynx; Z90.09 Acquired absence of other part of head and neck; Z79.01 Long term (current) use of anticoagulants; Z88.6 Allergy status to analgesic agent; E03.9 Hypothyroidism, unspecified; Z85.01 Personal history of malignant neoplasm of esophagus; Z92.3 Personal history of irradiation; Z79.899 Other long term (current) drug therapy; Z79.891 Long term (current) use of opiate analgesic; Z79.82 Long term (current) use of aspirin; Z79.52 Long term (current) use of systemic steroids; R60.0 Localized edema
CPT/HCPCS: 36415; 71045; 80053; 81000; 83690; 83735; 85025; 86141; 87804; 94640; 94760; G0378

== ENCOUNTER → 2019-12-04 | Outpatient (CLI) | payer MEDICARE, MEDICAID ==
[~2019-12-04] MED LIST changes: +ALBU18HF2 INH; +ALBU2.5V4 NEB; +CHOL200059 PO; +DOXA2TAB2 PO; +MORP-68 PO; +MORP-69 PO; -OMEP-280 PO; +OMEP20CA18 PO; +POLY238P32 PO
--- NOTE | 2019-12-04 13:16 | Diagnostic Imaging Report ---
INDICATION: Supraglottic squamous cell carcinoma, subsequent restaging. TECHNIQUE: The serum blood glucose level at the time of injection was 110 mg/dL. The patient was administered 13.0 mCi of F-18 FDG intravenously in the right antecubital location and PET imaging was performed from the top of the skull to the mid thighs. Noncontrast CT was also performed for attenuation correction and anatomic correlation. COMPARISON: Correlation is made with the prior PET/CT from 07/11/[address] neck studies from 10/12/2019 and 05/16/2019. FINDINGS: Symmetric activity throughout the brain is noted. There continues to be intense hypermetabolism in the supraglottic right neck. Abnormal soft tissue in the valleculae and right pyriform sinuses as well as base of the epiglottis is again noted. Abnormal soft tissue abuts the right aspect of the hyoid and thyroid cartilage. The SUV max is approximately 9.1. The degree of soft tissue appears increased since the prior PET/CT and appears similar to the CT neck study from September 2019. No definite hypermetabolic neck lymph nodes are identified. Imaging through the chest is without abnormal hypermetabolism within the daniel or mediastinum. There is an ovoid density in the posterior left lower lobe measuring 50 mm x 6 mm which appears new since the prior PET/CT from 2017. This shows some mild uptake with an SUV max of approximately 3.5. No other pulmonary parenchymal abnormalities are seen. The abdomen and pelvis demonstrate physiologic activity within the GI and tracts. No suspicious hypermetabolism is seen. IMPRESSION: Continued intense hypermetabolism in the supraglottic right neck, consistent with the patient's known squamous cell carcinoma. No definite metastatic lymph nodes are present. There is a new small pleural-based density in the posterior left lower lobe with some borderline uptake, indeterminate. This could conceivably be infectious or inflammatory. A short interval CT chest followup would be recommended to confirm clearing or stability. Dictated by: Dictated on workstation # [id number]
== END ==
LOC: RAD 08:29
PROVIDERS: ATTEND Otolaryngology
DX: C32.1 Malignant neoplasm of supraglottis (principal); C10.3 Malignant neoplasm of posterior wall of oropharynx

== ENCOUNTER 2019-12-14 11:00 | Outpatient (CLI) | payer MEDICARE, MEDICAID ==
[~2019-12-14] VITALS: Ht 157 cm; Wt 52.2 kg
[2019-12-14] MEDS ORDERED: CHOL200078 PO (11:29)
== END 2019-12-14 11:41 | disposition home or self-care (01) ==
LOC: PREOP 11:00
PROVIDERS: ATTEND Surgery
DX: Z01.818 Encounter for other preprocedural examination (principal)

== ENCOUNTER 2019-12-21 09:26 | Day surgery (SDC) | payer MEDICARE, MEDICAID ==
[2019-12-21] VITALS (16 sets, daily range): BP systolic 118–173; BP diastolic 59–81
[~2019-12-21] VITALS: Ht 157 cm; Wt 52.2 kg
[2019-12-21] MEDS ORDERED: NS IV 500 ML 500 ML ONE (09:28)
--- OUTSIDE RECORDS SUMMARY | 2019-12-21 09:32 | XMS REPORT | Encounter Summary ---
Author Author [facility] Organization [facility] Address Unknown Phone Unavailable Care Team Providers Care Process Manager Name Role Phone Eunice Vidal MD PCP Reason for Visit * Reason Comments Other Reschedule Surgery Encounter Details Care Team Description Date Type Department BurNaman MD [address] Ortho/Med Pavilion [address] [place], [place] [id number] Other (Reschedule Surgery) 11/12/[address] [facility] [address] [place] [address] Social History Date Tobacco Use Types Packs/Day Years Used Quit: 10/24/2019 Former Smoker 1 50 Smokeless Tobacco: Never Used Drinks/Week oz/Week Comments Alcohol Use quit 2-3 yrs sgo Not Currently Sex Assigned at Date Recorded Not on file Industry Job Start Date Occupation Not on file Not on file Not on file Travel End Travel History Travel Start No recent travel history available. documented as of this encounter Functional Status Date of Assessment Functional Status Response 10/31/2019 Does the patient have a hearing impairment: Yes 10/31/2019 Does the patient have a visual impairment: Yes 10/31/2019 Does the patient have impaired ambulation: No 10/31/2019 Does the patient have an activity of daily living No (ADL) impairment: 10/31/2019 Does the patient have an instrumental activity of No daily living (IADL) impairment: Date of Assessment Cognitive Status Response 10/31/2019 Does the patient have a cognitive impairment: No documented as of this encounter Miscellaneous Notes * Telephone Encounter - Reny Vaca RN - 11/13/2019 9:57 AM ASSISTANT GROCERY STORE MANAGER Spoke with the patient's son who spoke to chart prep yesterday at 4:20 when they called to tell him the time of the surgery that she did not feel well and there fore was not coming to surgery. Son then called and left message with this dep artment to reschedule. Son also did not take the patient for her PET scan which was scheduled locally. Explained to the son the situation with the OR and that he needed to call earlier in the day and speak directly to this nurse or another nurse to cancel. He states she is having trouble breathing and not feeling we ll. Explained to the son that she really needed the surgery that she was schedu led for today. This is the second time that the son has not come to an appointm ent that was scheduled for his mother and cancelled at the last minute. Son charlotte ayala refused to bring her to for a pre-op PET scan. He the primary transportati on for the patient. Will refer to social work for transportation support for th e patient to avoid this in the future. Per Dr. Mir, the patient is rescheduled for 12/17/2019. Updated the patient's son that he would be called on 12/14/2019 wi the time to be here for the surgery and if they were not able to be here, he needed to let this office know before 4 pm when the OR calls. STANT GROCERY STORE MANAGER * Telephone Encounter - Galo Laguna - 11/12/2019 4:20 PM ASSISTANT GROCERY STORE MANAGER Patient's son Marvin called to cancel and reschedule the surgery scheduled for t omorrow with Dr Mir. Patient was feeling very weak and unable to make the surge ry tomorrow. He requested a call back to get it rescheduled. STANT GROCERY STORE MANAGER documented in this encounter Plan of Treatment Not on filedocumented as of this encounter Visit Diagnoses Not on filedocumented in this encounter
--- OUTSIDE RECORDS SUMMARY | 2019-12-21 09:32 | XMS REPORT | Encounter Summary ---
Author Author [facility] Organization [facility] Address Unknown Phone Unavailable Care Team Providers Care Breading Machine Tender Name Role Phone Eunice Vidal MD PCP Encounter Details Care Team Description Date Type Department Naman Mir MD [address] Ortho/Med Pavilion [address] [place], [place] [id number] Cancer of larynx (HCC) (Primary Dx) 11/13/2019 Prep for Case [facility] [address] [place] [phone] Social History Date Tobacco Use Types Packs/Day [...] impairment: No documented as of this encounter Plan of Treatment Not on filedocumented as of this encounter Visit Diagnoses Diagnosis Cancer of larynx (HCC) Malignant neoplasm of larynx, unspecifi ed site documented in this encounter
--- OUTSIDE RECORDS SUMMARY | 2019-12-21 09:32 | XMS REPORT | Encounter Summary ---
Author Author [facility] Organization [facility] Address Unknown Phone Unavailable Care Team Providers Care Review Specialist Name Role Phone Eunice Vidal MD PCP Encounter Details Care Team Description Date Type Department Reny Vaca RN 11/12/[address] [facility] [address] [place] [address] Social History Date Tobacco Use [...]
--- OUTSIDE RECORDS SUMMARY | 2019-12-21 09:32 | XMS REPORT | Encounter Summary ---
Author Author [facility] Organization [facility] Address Unknown Phone Unavailable Care Team Providers Care Staff Toxicologist Name Role Phone Eunice Vidal MD PCP Reason for Visit * Reason Comments Surgery Encounter Details Care Team Description Date Type Department Reny Vaca RN Surgery 12/10/2019 Telephone [facility] [address] [place] [address] Social History Date Tobacco Use [...] Telephone Encounter - Reny Vaca RN - 12/10/2019 11:32 AM CDT Patient's son called to determine if the patient was still planning on coming fo r a surgical appointment next Tuesday. Left VM with a request for a return call. documented in this encounter Plan of Treatment Not on filedocumented as of this encounter Visit Diagnoses Not on filedocumented in this encounter
--- OUTSIDE RECORDS SUMMARY | 2019-12-21 09:32 | XMS REPORT | Encounter Summary ---
Author Author [facility] Organization [facility] Address Unknown Phone Unavailable Care Team Providers Care Manager Strategy & Account Name Role Phone Eunice Vidal MD PCP Encounter Details Care Team Description Date Type Department Naman Mir MD [address] Ortho/Med Pavilion [address] [place] [address] [phone] 11/13/[address] [facility] [address] [place] [phone] Social History Date Tobacco Use Types Packs/Day [...]
--- OUTSIDE RECORDS SUMMARY | 2019-12-21 09:32 | XMS REPORT | Encounter Summary ---
Author Author [facility] Organization [facility] Address Unknown Phone Unavailable Care Team Providers Care Flaker Tender Name Role Phone Eunice Vidal MD PCP Reason for Visit * Reason Comments Surgery Encounter Details Care Team Description Date Type Department Reny Vaca RN Surgery 12/11/2019 Telephone [facility] [address] [place] [address] Social History Date Tobacco Use [...] Telephone Encounter - Reny Vaca RN - 12/11/2019 10:29 AM CDT Spoke with the patient and they have decided to go a different path and they judy l be cancelling surgery at this time never to reschedule. documented in this encounter Plan of Treatment Not on filedocumented as of this encounter Visit Diagnoses Not on filedocumented in this encounter
--- OUTSIDE RECORDS SUMMARY | 2019-12-21 09:32 | XMS REPORT | Clinical Summary ---
Author Author [facility] Organization [facility] Address Unknown Phone Unavailable Care Team Providers Care Tile Setter Apprentice Name Role Phone Eunice Vidal MD PCP Source Comments Some departments are not documenting in the electronic medical record. If you d o not see the information that you expected, contact Release of Information in [facility] Information Management department at [phone] for further assistan froy in locating additional records.[facility] Allergies Comments Active Allergy Reactions Severity Noted Date Heart races Hydrocodone SEE COMMENTS Low 10/31/2019 Blisters on feet Warfarin SEE COMMENTS Low 11/07/2019 Medications End Date Status Medication Sig Dispensed Refills Start Date Active mirtazapine (REMERON) 30 Take 30 mg by 0 10/20 mg tablet mouth at 0 bedtime daily. Active methocarbamol (ROBAXIN) Take 750 mg 0 750 mg tablet by mouth 0 three times daily. Active VENTOLIN HFA 90 Inhale 2 0 mcg/actuation aerosol puffs by 0 inhaler mouth into the lungs every 4 hours as needed. Active omeprazole DR (PRILOSEC) Take 40 mg by 0 09/20 40 mg capsule mouth daily 0 before breakfast. Active albuterol 0.083% Inhale 3 mL 0 (PROVENTIL) 2.5 mg /3 mL solution by 0 (0.083 %) nebulizer nebulizer as solution directed every 6 hours as needed. Active loratadine 10 mg cap Take 10 mg by 0 mouth daily. [address] (CYMBALTA) Take 60 mg by 0 10/20 60 mg capsule mouth twice 0 daily. Twice daily at noon and bedtime. Active furosemide (LASIX) 20 mg Take 20 mg by 0 11/19 tablet mouth every 5 morning. Active doxazosin (CARDURA) 2 mg Take 2 mg by 0 10/22 tablet mouth at 0 bedtime daily. Active levothyroxine (SYNTHROID) Take 75 mcg 0 75 mcg tablet by mouth 0 daily 30 minutes before breakfast. Active metoprolol XL (TOPROL XL) Take 200 mg 0 200 mg extended release by mouth 5 tablet daily. Active polyethylene glycol 3350 Take 17 g by 0 10/22 (MIRALAX) 17 gram/dose mouth daily. 0 powder Active fluticasone propionate 1 SPRAY IN 0 01 (FLONASE) 50 EACH NOSTRIL 6 mcg/actuation nasal ONCE A DAY spray, suspension NASALLY Active LIDOCAINE VISCOUS 2 % USE 09/13 TO 1 0 08/02/20 1 solution TEASPOON ( 9 2.5 TO 5 ML) EVERY 2-3 HOURS NEEDED FOR THROAT PAIN Active umeclidinium(+) (INCRUSE Inhale 1 puff 0 ELLIPTA) 62.5 by mouth into mcg/actuation inhalation the lungs disk daily. Active dabigatran (PRADAXA) 150 Take 150 mg 0 mg capsule by mouth twice daily. Active budesonide-formoterol Inhale 2 0 (SYMBICORT) 160-4.5 puffs by mcg/actuation inhalation mouth into the lungs twice daily. Active morphine SR (MS CONTIN) Take 15 mg by 0 15 mg tablet mouth every 12 hours Active vitamins, multiple cap Take 1 0 capsule by mouth daily. Active cholecalciferol (VITAMIN Take 1,000 0 D-3) 1,000 units tablet Units by mouth daily. Active Diphenhydramine-Acetamino Take 1 tablet 0 phen (TYLENOL PM EXTRA by mouth at STRENGTH) 25-500 mg tab bedtime as tablet needed. Active Problems Problem Noted Date Squamous cell carcinoma of supraglottis 10/31/2019 Cancer Staging: Clinical: Stage III (yc T3, cN0, cM0) - Signed by Naman Mir MD on 10/31/2019 Pharyngeal dysphagia 10/31/2019 Severe protein-calorie malnutrition 10/31/2019 Encounters Care Team Description Date Type Specialty Reny Vaca RN Surgery 12/11/2019 Telephone Otolaryngology Reny Vaca RN Surgery 12/10/2019 Telephone Otolaryngology Nelida Buenrostro MD Lyons, Laura, APRN 11/13/2019 Anesthesia Event Naman Mir MD Cancer of larynx (HCC) (Primary Dx) 11/13/2019 Prep for Case Otolaryngology Naman Mir MD 11/13/2019 Prep for Case Otolaryngology Naman Mir MD Other (Reschedule Surgery) 11/12/2019 Telephone Otolaryngology Reny Vaca RN 11/12/2019 Documentation Otolaryngology Reny Vaca RN 11/08/2019 Documentation Otolaryngology Naman Mir MD Atrial fibrillation, unspecified type (H CC) (Primary Dx); Larynx cancer (HCC) 11/07/2019 Ancillary Pre-Admission Testi ng Procedure Juan Decker MD Other (Fax number) 11/05/2019 Telephone Otolaryngology Naman Mir MD Other 11/02/2019 Telephone Otolaryngology Naman Mir MD Laryngeal cancer (HCC) (Primary Dx); 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) 11/01/2019 Orders Only Otolaryngology Eunice Vidal MD Sullivan, Jessica, MA,[facility]-PASTRY ASSISTANT ERRONEOUS ENCOUNTER--DISREGARD (Primary Dx) 10/31/2019 Clinical Otolaryngology Support Naman Mir MD Laryngeal cancer (HCC) (Primary Dx); Squamous cell carcinoma of supraglottis (HCC); Pharyngeal dysphagia; Severe protein-calorie malnutrition (HCC) 10/31/2019 Office Visit Otolaryngology Naman Mir MD Cancer of larynx (HCC) (Primary Dx) 10/31/2019 Prep for Case Otolaryngology Evie Hendricks, LISBETH Navigation Assessment 10/25/2019 Telephone Oncology 10/12/2019 Hospital Radiology Encounter from Last 3 Months Family History Medical History Relation Name Comments Cancer Mother Relation Name Status Comments Mother Social History Date Tobacco Use Types Packs/Day Years Used Quit: 10/24/2019 Former Smoker 1 50 Smokeless Tobacco: Never Used Drinks/Week oz/Week Comments Alcohol Use quit 2-3 yrs sgo Not Currently Sex Assigned at Date Recorded Not on file Industry Job Start Date Occupation Not on file Not on file Not on file Travel End Travel History Travel Start No recent travel history available. Last Filed Vital Signs Reading Time Taken Comments Vital Sign 140/85 11/07/2019 7:22 AM SULFURIC ACID PLANT OPERATOR Blood Pressure 85 11/07/2019 7:22 AM SULFURIC ACID PLANT OPERATOR Pulse 36.6 C (97.8 F) 11/07/2019 7:22 AM SULFURIC ACID PLANT OPERATOR Temperature - - Respiratory Rate 96% 11/07/2019 7:22 AM SULFURIC ACID PLANT OPERATOR Oxygen Saturation - - Inhaled Oxygen Concentration 54 kg (119 lb) 11/07/2019 7:22 AM SULFURIC ACID PLANT OPERATOR Weight 160 cm (5' 3") 11/07/2019 7:22 AM SULFURIC ACID PLANT OPERATOR Height 21.08 11/07/2019 7:22 AM SULFURIC ACID PLANT OPERATOR Body Mass Index Plan of Treatment Health Maintenance Due Date Last Done Comments MEDICARE ANNUAL WELLNESS 1944 VISIT DTAP/TDAP VACCINES (1 - 1955 Tdap) PHYSICAL (COMPREHENSIVE) 1962 EXAM COLORECTAL CANCER 1994 SCREENING SHINGLES RECOMBINANT 1994 VACCINE (1 of 2) OSTEOPOROSIS 2009 SCREENING/MONITORING PNEUMONIA (PCV13/PPSV23) 2009 VACCINES (1 of 2 - PCV13) INFLUENZA VACCINE 04/12/2020 Procedures Comments Procedure Name Priority Date/Time Associated Diag nosis HC COMPREHENSIVE Routine 11/07/2019 Larynx cancer (HCC) METABOLIC PANEL 8:39 AM SULFURIC ACID PLANT OPERATOR HC CBC,AUTOMATED Routine 11/07/2019 Larynx cancer (HCC) 8:39 AM SULFURIC ACID PLANT OPERATOR ECG-SCAN 11/07/2019 12:00 AM SULFURIC ACID PLANT OPERATOR CT NECK EXTERNAL IMAGING Routine 10/12/2019 12:00 AM SULFURIC ACID PLANT OPERATOR from Last 3 Months Results * CBC (11/07/2019 8:39 AM SULFURIC ACID PLANT OPERATOR) White Blood 7.7 4.5 - 11.0 K/UL [facility] Cells RBC 3.58 (L) 4.0 - 5.0 M/UL [facility] Hemoglobin 10.5 (L) 12.0 - 15.0 GM/DL [facility] Hematocrit 31.9 (L) 36 - 45 % [facility] MCV 89.2 80 - 100 FL [facility] MCH 29.3 26 - 34 PG [facility] MCHC 32.9 32.0 - 36.0 G/DL [facility] RDW 17.6 (H) 11 - 15 % [facility] Platelet Count 497 (H) 150 - 400 K/UL [facility] MPV 6.8 (L) 7 - 11 FL [facility] Specimen Blood Performing Organization Address [facility] Ph one Number [facility] [address] [place] [address] * COMPREHENSIVE METABOLIC PANEL (11/07/2019 8:39 AM SULFURIC ACID PLANT OPERATOR) Sodium 130 (L) 137 - 147 MMOL/L [facility] Potassium 4.2 3.5 - 5.1 MMOL/L [facility] Chloride 93 (L) 98 - 110 MMOL/L [facility] Glucose 100 70 - 100 MG/DL [facility] Blood Urea 11 7 - 25 MG/DL [facility] Nitrogen Creatinine 0.57 0.4 - 1.00 MG/DL [facility] Calcium 8.5 8.5 - 10.6 MG/DL [facility] Total Protein 5.8 (L) 6.0 - 8.0 G/DL [facility] Total Bilirubin 0.3 0.3 - 1.2 MG/DL [facility] Albumin 3.1 (L) 3.5 - 5.0 G/DL [facility] Alk Phosphatase 141 (H) 25 - 110 U/L [facility] AST (SGOT) 12 7 - 40 U/L [facility] CO2 30 21 - 30 MMOL/L [facility] ALT (SGPT) 8 7 - 56 U/L [facility] Anion Gap 7 3 - 12 [facility] eGFR Non >60 >60 mL/min [facility] Comment: [place] The eGFR is not validated f or use in drug dosing adjustments. Continue to use estimated creatinine clearance per dosing reference text. Please contact the Clinical Pharmacist for questions. eGFR >60 >60 mL/min [facility] [place] Comment: The eGFR is not validated for use in drug dosing adjustments. Continue to use estimated creatinine clearance per dosing reference text. Please contact the Clinical Pharmacist for questions. Specimen Blood Performing Organization Address City/[facility]/Zipcode Ph one Number MAIN LAB [address] [place] [address] * ECG-SCAN (11/07/2019 12:00 AM SULFURIC ACID PLANT OPERATOR) Narrative Performed At This result has an attachment that is n ot available. Ordered by an unspecified provider. * CT NECK EXTERNAL IMAGING (10/12/2019 12:00 AM SULFURIC ACID PLANT OPERATOR) Specimen Narrative Performed At This order has been auto finalized and does not contain a result. from Last 3 Months Insurance Type Payer Benefit Subscriber ID Effective Phone Address Plan / Dates Group Medicare AETNA MEDICARE AETNA xxxxxxxxxxxx 2019-P MEDICARE resent PPO Medicaid [facility] MEDICAID [place] [facility] xxxxxxxxxxx 2019-P COMMUNITY resent PLAN [place] Advance Directives Patient Social Science Teacher Explanation Type Date Recorded Advance Directive/DPOA
--- OUTSIDE RECORDS SUMMARY | 2019-12-21 09:33 | XMS REPORT | Encounter Summary ---
Author Author [facility] Organization [facility] Address Unknown Phone Unavailable Care Team Providers Care Button Sewer Hand Name Role Phone Eunice Vidal MD PCP Encounter Details Care Team Description Date Type Department Reny Vaca RN 11/08/2019 Documentation [facility] [address] [place] [address] Social History Date Tobacco Use [...] impairment: No documented as of this encounter Progress Notes * Reny Vaca RN - 11/08/2019 2:10 PM DRUG ABUSE PROGRAM COORDINATOR Prior authorization for [employer] for PET scan scheduled on 11/12/[address], [place] initiated with case # [id number] and clinicals faxed to . ABUSE PROGRAM COORDINATOR documented in this encounter Plan of Treatment Not on filedocumented as of this encounter Visit Diagnoses Not on filedocumented in this encounter
--- OUTSIDE RECORDS SUMMARY | 2019-12-21 09:33 | XMS REPORT | Encounter Summary ---
Author Author [facility] Organization [facility] Address Unknown Phone Unavailable Care Team Providers Care Clam Bed Worker Name Role Phone Eunice Vidal MD PCP Reason for Referral * Consult, Test & Treat (Routine) Referred By Contact Referred To Contact Status Reason Specialty Diagnoses / Procedures Naman Mir MD [address] [facility] [address] [address] [place] [id number] New Request Specialty Services Diagnoses Required Laryngeal cancer (HCC) * Consult, Test & Treat (Routine) Referred By Contact Referred To Contact Status Reason Specialty Diagnoses / Procedures Naman Mir MD [address] [facility] [address] [place] [phone] New Request Specialty Services Diagnoses Required Laryngeal cancer (HCC) Reason for Visit * Reason Comments Other laryngeal CA * Consult, Test & Treat (Routine) Referred By Contact Referred To Contact Status Reason Specialty Diagnoses / Procedures Mike Huff MD [address] [address] Cc - Ww Cl Exm/Proc [facility] [address] No Auth Needed Oncology Diagnoses hx scca of epiglottis now recurrence Encounter Details Care Team Description Date Type Department Naman Mir MD [address] [facility] [address] [address] [place] [phone] Laryngeal cancer (HCC) (Primary Dx); Squamous cell carcinoma of supraglottis (HCC); Pharyngeal dysphagia; Severe protein-calorie malnutrition (HCC) 10/31/2019 Office Visit [facility] [address] [facility] Level [address] [place] [phone] Social History Date Tobacco Use Types Packs/Day Years Used Quit: 10/24/2019 Former Smoker Smokeless Tobacco: Never Used Drinks/Week oz/Week Comments Alcohol Use Not Currently Sex Assigned at Date Recorded [...] impairment: No documented as of this encounter Patient Instructions * Patient Instructions* Reny Vaca RN - 10/31/2019 12:30 PM PINBALL MACHINE REPAIRER General Instructions for Surgery Patients You are scheduled for surgery on: 11/13/2019 Your surgeon is: Naman Mir MD Your nurse coordinator is: Reny Vaca RN Contact Information: Main Office: [phone], hours Tuesday thru Tuesday 8:00am-4:30pm option #1. Dr. Decker: Please ask for your nurse. Dr. Mir: Please ask for your nurse. If you are unable to contact your physician, please contact same day surgery When to arrive A veterans service representative from the operating room will call after 3pm on the last s day before your procedure with information about when you should arrive at the hospital. If your procedure is scheduled for Tuesday, you will receive this call on Tuesday. If you do not receive a call from the operating room veterans service representative about your a rrival time by 4pm, call the Preoperative Evaluation Clinic. Between 3:30pm and 6pm - Call or (from [place] only) . After 6pm - Call . If you are coming from out of town and staying overnight in [place], please provide us with your local number. It is very important that we are able to cont act you. Parking Park in the parking garage off of [facility]. [facility] main Entrance and check in wi th admitting on 1st floor. Bringing Visitors As a courtesy to other families and visitors, please limit the number of your ny iting room visitors to two. What to bring? Bring a list of all medications you are currently taking. Bring your insurance i nformation or insurance/prescription cards. If you have a living will or a durab le power of criminal defense attorney, please bring a copy to be included in your chart. Please b ring appropriate containers for glasses, contacts, dentures or partials. Do not bring money, jewelry or other valuables. The hospital is not responsible for los s or breakage of personal items. Preparing for Your Procedure Eating and Drinking DO NOT eat or drink anything after 12:00 midnight on the night before your surge ry. You may brush your teeth and rinse your mouth, but your stomach should be co mpletely empty. (No water, No coffee, No gum, candy or mints.) Hygiene Bathe or shower the night before or morning of your procedure. What to Wear Dress comfortably. A gown and slippers will be provided for you. Remove all jewe lry and body piercings. Do not wear make-up or fingernail indian. Medications Please make us aware of any and all prescription, vvoe-veo-midgomm, or supplemen ts you are taking. The surgical team will let you know know whether to take any doses of your prescription medications the morning of your procedure. Do not chanelle e diabetic medication (pills as well as insulin shots). These medicines that can thin the blood should be avoided 7 days before your melly qery: Blood thinners: Warfarin (Coumadin), Heparin, Lovenox, Plavix, Ticlid, Xarelto, Pradaxa, Persantine, Aspirin (Ecotrin, Excedrin, Pamprin), or any other blood th inner. If you take aspirin or any blood thinners, please contact the prescribing physi tim for recommendation regarding holding these medications prior to surgery. Do not stop taking any heart medications or aspirin without seeking the Approval of your Twx Operator. Non-Steroidal Anti-Inflammatory Drugs (NSAIDS): such as: Aspirin (Ecotrin, Exced rin, and Pamprin), Ibuprofen (Advil, Motrin), Naproxyn (Aleve) or any other anti -inflammatory medication Other medications to avoid: Lortab, Darvocent-N, or cold medications such as Alk a Rapidan, Sine-Off, Vitamin E (more than 400units). If scheduling permits please stop vitamins, minerals and herbal supplements, inc luding Garlic, Ginkgo, [place], Feverfew and Fish Oil two weeks before your pr ocedure. Going Home You must have someone available to drive you home after your surgery. Notify Your Physician If you become ill the day before your procedure with fever , cold symptoms, sore throat, nausea, vomiting or other illness. [facility] Address and Instructions [facility] [place], [place] [id number] [place] [address] [facility] campus at the northwest corner of [address] [place] [address] [address] [facility]. We are pleased to serve you and appreciate your trust in our care. On the day of your procedure: Park in the P5 parking garage on the corner of [address] [place] [address] and [facility]. The fee is $3 with validation; bring your ticket to any information desk for validation. Enter [facility] through the main entrance on the street level. Check in at the admitting desk on Level 1. When your registration is complete, check in with the waiting room service clerk. You will be escorted to the location of your procedure. Your family or friends may wait comfortably in the common areas on Level 1. ALL MACHINE REPAIRER documented in this encounter Progress Notes * Naman Mir MD - 10/31/2019 12:30 PM PINBALL MACHINE REPAIRER Chief Complaint Patient presents with Other laryngeal CA History of Present Illness: Gracie Sloan is a 74 y.o. year old female evaluated on 10/31/2019, in the Otolary ngology-Head and Neck Surgery Clinic at the [facility]. The patient was referred by Dr. Huff for evaluation of possible recurrent supr aglottic SCC. 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 She continued to smoke throughout radiation therapy and smoked until 1 week ago. In March 2019, she had persistent swelling in the region of the epiglottis, but no gross tumor seen; however over the past two to three months there has been si gnificant change on her exam. A CT neck was done that showed a mass in the right supraglottis that involves the epiglottics, pre-epiglottic space, and supraglot tic false cord. She complains of severe throat pain, which does not improve with topical lidocaine. She takes morphine for pain. Denies any dyspnea, otalgia, fevers, chills. She has lost 25 pounds since radiat ion therapy. Cancer treatment summary: Cancer Staging Squamous cell carcinoma of supraglottis (HCC) Staging form: Larynx - Supraglottis, AJCC 8th Edition - Clinical: Stage III (ycT3, cN0, cM0) - Signed by Naman Mir MD on 0 Past Medical/Surgical History She has a past medical history of Alcoholism (HCC), Arthritis, Atrial fibrillat ion (HCC), Cancer (HCC), COPD (chronic obstructive pulmonary disease) (HCC), Hea ring loss, Hypertension, Seasonal allergic reaction, and Tobacco abuse. History reviewed. No pertinent surgical history. Past surgical history reviewed and is otherwise noncontributory. Past Family/Social History Family History Problem Relation Age of Onset Cancer Mother Family history reviewed and is otherwise noncontributory. She reports that she quit smoking 7 days ago. She has never used smokeless toba clinical account liaison. She reports previous alcohol use. She reports that she does not use drugs. Medications/Allergies/Immunizations Her current medication(s) include: Current Outpatient Medications Medication Sig Dispense Refill albuterol 0.083% (PROVENTIL) 2.5 mg /3 mL (0.083 %) nebulizer solution budesonide/formoterol fumarate (SYMBICORT IN) Inhale by mouth into the lung s. dabigatran etexilate mesylate (PRADAXA PO) Take by mouth. diltiazem CD (CARDIZEM CD) 240 mg capsule every 24 hours. doxazosin (CARDURA) [address] (CYMBALTA) 60 mg capsule fluticasone propionate (FLONASE) 50 mcg/actuation nasal spray, suspension 1 SPRAY IN EACH NOSTRIL ONCE A DAY NASALLY furosemide (LASIX) 20 mg tablet Daily levothyroxine (SYNTHROID) 75 mcg tablet LIDOCAINE VISCOUS 2 % solution USE 1/2 TO 1 TEASPOON ( 2.5 TO 5 ML) EVERY 2- 3 HOURS NEEDED FOR THROAT PAIN loratadine 10 mg cap 1 Tablet by Oral route 1 time per day methocarbamol (ROBAXIN) 750 mg tablet metoprolol XL (TOPROL XL) 200 mg extended release tablet Daily mirtazapine (REMERON) 30 mg tablet morphine SR (MS CONTIN) 15 mg tablet Take 15 mg by mouth every [address] (PRILOSEC) 40 mg capsule polyethylene glycol 3350 (MIRALAX) 17 gram/dose powder umeclidinium(+) (INCRUSE ELLIPTA) 62.5 mcg/actuation inhalation disk Inhale 1 puff by mouth into the lungs daily. VENTOLIN HFA 90 mcg/actuation aerosol inhaler No current facility-administered medications for this visit. Allergies: Clindamycin and Hydrocodone Review of Systems Constitutional: Positive for appetite change, chills and fatigue. HENT: Positive for congestion, dental problem, ear pain, hearing loss, rhinorrhe a, sore throat, trouble swallowing and voice change. Eyes: Positive for itching. Respiratory: Positive for cough and choking. Cardiovascular: Positive for palpitations and leg swelling. Gastrointestinal: Positive for anal bleeding, constipation, diarrhea and rectal pain. Musculoskeletal: Positive for arthralgias, back pain, myalgias and neck pain. Skin: Positive for pallor. Neurological: Positive for weakness. Hematological: Bruises/bleeds easily. Psychiatric/Behavioral: The patient is nervous/anxious. PHYSICAL EXAM: Vital Signs: There were no vitals taken for this visit. General: Malnourshed, weak, on 3L O2 by nasal cannula Communication and Voice: Hoarse voice Hearing: Hearing adequate for verbal communication bilaterally Inspection: Normocephalic and atraumatic without mass or lesion Palpation: Facial skeleton intact without bony stepoffs Parotid Glands: No mass or tenderness Facial Strength: Facial motility symmetric and full bilaterally Pinna: External ear intact and fully developed External canal: Canal is patent with intact skin Tympanic Membrane: Clear and mobile External nose: No scar or anatomic deformity Internal Nose: Septum intact and midline. No edema, polyp, or rhinorrhea. TMJ: No pain to palpation with full mobility Oral cavity, Lips, Teeth, and Gums: Mucosa and teeth intact and viable, No lesi ons, masses or ulcers Oropharynx: No erythema or exudate, no masses or ulcerations, non-obstructive to nsils Nasopharynx: No mass or lesion with intact mucosa Hypopharynx: Not well visualized secondary to gagging Larynx: Not well visualized secondary to gagging Neck, Trachea, Lymphatics: Midline trachea without mass or lesion, no lymphaden opathy. Lymphedema Thyroid: No mass or nodularity Eyes: No nystagmus with equal extraocular motion bilaterally Neuro/Psych/Balance: Patient oriented and appropriate in interaction; Appropria te mood and affect; Gait is intact with no imbalance; Cranial nerves I-XII are intact Respiratory effort: Equal inspiration and expiration without stridor Peripheral Vascular: Warm extremities with equal pulses Procedure: Flexible fiberoptic nasopharyngoscopy/laryngoscopy Indications: Need for detailed exam, hyperactive gag reflex, inadequate mirror v isualization. Surgeon: Naman Mir MD Procedure note/findings: After informed discussion of the risks, benefits, and a lternatives after indications as noted above, a fiberoptic nasopharyngoscopy and laryngoscopy was recommended for above indications, and the patient consented to this. Nasal cavities were topically anesthetized and decongested with 4% lidoc carlota and Afrin solutions after which a flexible scope was easily advanced withou t difficulty into the left and right nasal cavities as well as into the nasophar ynx. Nasal cavities were intact without gross mass or lesion. Nasopharynx, simil dany, revealed no mass lesion or granularity. There was no ulceration. There was no gross asymmetry. Fossa of Rosenmueller was intact bilaterally. The eustachian tube orifices were intact bilaterally and patent. Posterior and lateral nasal pharyngeal diaz were intact and symmetric without ulceration, mass, or granular ity. Scope was now advanced distally. Visible oropharynx including lateral diaz and tongue base was clear without lesion. Mass involving epiglottis, vallecular and right right aryepiglottic fold. Post-radiation edema throughout. Difficult exam but seemingly normal true vocal cord mobility bilaterally.Airway was patent . The scope was then withdrawn and removed. She tolerated this well. PATHOLOGY REVIEW: N/A RADIOLOGIC REVIEW: 10/12/19 CT Neck (OSH) Interval progression of the mass involving the right suprahyoid larynx, the righ t vocal cord, right piriform sinus, extends into the preepiglottic fat, epiglott is and abuts the right hyoid and thyroid cartilage. IMPRESSION: My impression is that Ms. Sloan has recurrent supraglottic SCC which I would te ntatively stage as a [id number] lesion based on exam and imaging. PLAN: I discussed that the next step will be to perform panendoscopy with biopsies, tr acheostomy and gastrostomy tube placement. She is severely malnourished and has lost approximately 25 pounds due to dysphagia. Additionally she will need a PET/ CT for re-staging. I would like her to meet with palliative care to discuss pain control options. After review of the various options including the risks, benef its and alternatives, Ms. Sloan has opted to proceed with surgery as part of he r overall management which I believe is reasonable for her condition. This will include tracheostomy, DL and biopsy, esophagoscopy and bronchoscopy. S he will also need a gastrostomy tube placed to improve her nutrition. She is a p oor surgical candidate due to her COPD and other medical comorbidities. I do not believe she will tolerate salvage surgery, which would require total laryngecto my, bilateral neck dissection and pectoralis major myocutaneous flap reconstruct ion. We briefly discussed alternatives to surgery. I would like for her to meet with medical oncology to discuss alternatives to s urgery including palliative chemotherapy and immunotherapy. Will send tissue for PDL1 at the time of biopsy. We will hence proceed with scheduling surgery in the near future as well as orde r appropriate preoperative testing and evaluation prior to surgery. I believe th at Ms. Sloan has a good understanding of the issues involved and I answered all of her questions. ATTESTATION I personally performed the valentine portions of the E/M visit, discussed case with re lgoan and concur with resident documentation of history, physical exam, assessm ent, and treatment plan unless otherwise noted. Staff name: Naman Mir MD Date: 10/31/2019 ALL MACHINE REPAIRER * Reny Vaca, RN - 10/31/2019 12:30 PM PINBALL MACHINE REPAIRER Pre Visit Planning- New Patient Records received: Yes Orders have been NA Patient inactive in [facility]. Imaging: Yes Special equipment: N/A CT NECK EXTERNAL IMAGING This order has been auto finalized and does not contain a result. ALL MACHINE REPAIRER documented in this encounter Plan of Treatment Order Schedule Name Type Priority Associated Diag noses Ordered: 10/31/2019 AMB REFERRAL TO ONCOLOGY Outpatient Routine Laryn geal cancer (HCC) Referral Ordered: 10/31/2019 AMB REFERRAL PALLIATIVE Outpatient Routine Laryng eal cancer (HCC) CARE Referral documented as of this encounter Visit Diagnoses Diagnosis Laryngeal cancer (HCC) Malignant neoplasm of larynx, unspecifi ed site Squamous cell carcinoma of supraglottis (HCC) Malignant neoplasm of supraglottis Pharyngeal dysphagia Dysphagia, pharyngeal phase Severe protein-calorie malnutrition (HC C) Other severe protein-calorie malnutriti on documented in this encounter
--- OUTSIDE RECORDS SUMMARY | 2019-12-21 09:33 | XMS REPORT | Encounter Summary ---
Author Author [facility] Organization [facility] Address Unknown Phone Unavailable Care Team Providers Care Irish Moss Bleacher Name Role Phone Eunice Vidal MD PCP Encounter Details Care Team Description Date Type Department Naman Mir MD [address] Ortho/Med Pavilion Lvl 3C [place], [place] [phone] Atrial fibrillation, unspecified type (H CC) (Primary Dx); Larynx cancer (HCC) 11/07/2019 Ancillary [facility] [address] [place], [place] [id number] Anesthesia Record Responsible Anesthesiologist Anesthesia Start Time Anesthesi a Stop Time Procedure Name TRACHEOSTOMY PLANNED (canceled) No events on file. Meds * No agents on file. * No blood administrations on file. No LDAs on file. documented in this encounter Social History Date Tobacco Use Types Packs/Day [...] history available. documented as of this encounter Last Filed Vital Signs Reading Time Taken Comments Vital Sign 140/85 11/07/2019 7:22 AM WAFER FAB OPERATOR Blood Pressure 85 11/07/2019 7:22 AM WAFER FAB OPERATOR Pulse 36.6 C (97.8 F) 11/07/2019 7:22 AM WAFER FAB OPERATOR Temperature - - Respiratory Rate 96% 11/07/2019 7:22 AM WAFER FAB OPERATOR Oxygen Saturation - - Inhaled Oxygen Concentration 54 kg (119 lb) 11/07/2019 7:22 AM WAFER FAB OPERATOR Weight 160 cm (5' 3") 11/07/2019 7:22 AM WAFER FAB OPERATOR Height 21.08 11/07/2019 7:22 AM WAFER FAB OPERATOR Body Mass Index documented in this encounter Functional Status Date of Assessment [...] as of this encounter Patient Instructions * Pre-Anesthesia Patient Instructions* Liv Cazares RN - 11/07/2019 7:30 AM WAFER FAB OPERATOR GENERAL INFORMATION Before you come to the hospital Make arrangements for a responsible adult to drive you home and stay with you for 24 hours following surgery. Bath/Shower Instructions Take a bath or shower with antibacterial soap the night before or the morning of your procedure. Use clean towels. Take a bath or shower using the special soap given to you in PAC. Use half th e bottle the night before, and the other half the morning of your procedure. Use clean towels with each bath or shower. Put on clean clothes after bath or shower. Avoid using lotion and oils. If you are having surgery above the waist, wear a shirt that fastens up the f ront. Sleep on clean sheets if bath or shower is done the night before procedure. Leave money, credit cards, jewelry, and any other valuables at home. The [facility] is not responsible for the loss or breakage of persona l items. Remove nail italian, makeup and all jewelry (including piercings) before comin g to the hospital. The morning of your procedure: brush your teeth and tongue do not smoke do not shave the area where you will have surgery What to bring to the hospital ID/ Insurance Card Open Winder card Official documents for legal guardianship Copy of your Living Will, Advanced Directives, and/or Durable Power of Attorn ey Small bag with a few personal belongings Cases for glasses/hearing aids/contact lens (bring solutions for contacts) Dress in clean, loose, comfortable clothing Eating or drinking before surgery Do not eat or drink anything after 11:00 p.m. the day before your procedure ( including gum, mints, candy, or chewing tobacco) OR follow the specific instruct ions you were given by your Surgeon. You may have WATER ONLY up to 2 hours before arriving at the hospital. Other instructions: Other instructions Notify your surgeon if: you become ill with a cough, fever, sore throat, nausea, vomiting or flu-like symptoms you have any open wounds/sores that are red, painful, draining, or are new si nce you last saw the doctor you need to cancel your procedure You will receive a call with your surgery arrival time from between 2:30pm an d 4:30pm the last business day before your procedure. If you do not receive a c all, please call [phone] before 4:30pm or [phone] after 4:30pm. Notify us at [facility]: if you need to cancel your procedure if you are going to be late [facility] [address] [place] [address] ? Park in the P5 parking garage located at [address] [address]. ? Pneumatic Tester Mechanic parking is available in front of [facility] between the hours of 7:00 am and 4:00 pm Tuesday through Tuesday. ? If parking in the P5 garage, take the east elevators in the parking garage to the second level and walk to the entrance of the [facility]. ? Enter through the 1st floor main entrance and check in with Information Desk. ? R FAB OPERATOR * Pre-Anesthesia Medication Instructions* Radha Vaca PHARMD - 11/07/2019 7:30 AM WAFER FAB OPERATOR YOUR MEDICATION LIST albuterol 0.083% (PROVENTIL) 2.5 mg /3 mL (0.083 %) nebulizer solution Inhal e 3 mL solution by nebulizer as directed every 6 hours as needed. budesonide-formoterol (SYMBICORT) 160-4.5 mcg/actuation inhalation Inhale 2 puffs by mouth into the lungs twice daily. cholecalciferol (VITAMIN D-3) 1,000 units tablet Take 1,000 Units by mouth d aily. dabigatran (PRADAXA) 150 mg capsule Take 150 mg by mouth twice daily. Diphenhydramine-Acetaminophen (TYLENOL PM EXTRA STRENGTH) 25-500 mg tab tabl et Take 1 tablet by mouth at bedtime as needed. doxazosin (CARDURA) 2 mg tablet Take 2 mg by mouth at bedtime daily. duloxetine DR (CYMBALTA) 60 mg capsule Take 60 mg by mouth twice daily. Twic e daily at noon and bedtime. fluticasone propionate (FLONASE) 50 mcg/actuation nasal spray, suspension 1 SPRAY IN EACH NOSTRIL ONCE A DAY NASALLY furosemide (LASIX) 20 mg tablet Take 20 mg by mouth every morning. levothyroxine (SYNTHROID) 75 mcg tablet Take 75 mcg by mouth daily 30 minute s before breakfast. LIDOCAINE VISCOUS 2 % solution USE 1/2 TO 1 TEASPOON ( 2.5 TO 5 ML) EVERY 2- 3 HOURS NEEDED FOR THROAT PAIN loratadine 10 mg cap Take 10 mg by mouth daily. methocarbamol (ROBAXIN) 750 mg tablet Take 750 mg by mouth three times daily . metoprolol XL (TOPROL XL) 200 mg extended release tablet Take 200 mg by mout h daily. mirtazapine (REMERON) 30 mg tablet Take 30 mg by mouth at bedtime daily. morphine SR (MS CONTIN) 15 mg tablet Take 15 mg by mouth every [address] (PRILOSEC) 40 mg capsule Take 40 mg by mouth daily before poli kfast. polyethylene glycol 3350 (MIRALAX) 17 gram/dose powder Take 17 g by mouth da cynthia. umeclidinium(+) (INCRUSE ELLIPTA) 62.5 mcg/actuation inhalation disk Inhale 1 puff by mouth into the lungs daily. VENTOLIN HFA 90 mcg/actuation aerosol inhaler Inhale 2 puffs by mouth into t he lungs every 4 hours as needed. vitamins, multiple cap Take 1 capsule by mouth daily. YOUR MEDICATION INSTRUCTIONS FOR SURGERY Please continue taking your medicine as your doctor has told you to UNLESS it is listed to stop below. Starting TODAY BEFORE SURGERY Do not take the following vitamins, herbals, and supplements: Multivitamin 7 DAYS BEFORE SURGERY DO NOT TAKE the following anti-inflammatory medications such as ibuprofen (Advil , Motrin) and naproxen (Aleve) You may use acetaminophen (Tylenol) And Morphine 5 DAYS BEFORE SURGERY Hold Pradaxa for 5 days before surgery. Patient has stopped for 2 weeks due t o scheduling for surgery. DAY BEFORE SURGERY TAKE your medications the day before surgery as usual unless told differently MORNING OF SURGERY DO NOT take these medications: Remaining vitamins/supplements Ointments/creams/lotions Furosemide Lidocaine Miralax TAKE these medications with a sip (1-2 ounces) of water: Levothyroxine Duloxetine Loratadine Methocarbamol Metoprolol Morphine Omeprazole Use all inhalers, nebulizers, nasal sprays as usual Please contact the clinic pharmacist with any changes to your medication list or medication questions before surgery. ? E-mail: [email or web address] Before going home from the hospital, please ask your doctor when you should re-s tart any medicine that was stopped for surgery. R FAB OPERATOR documented in this encounter Progress Notes * Lynn Cheney PHARMD - 11/07/2019 7:30 AM WAFER FAB OPERATOR PAC Anticoagulant Plan Note: Gracie Sloan was seen in the PAC on 11/07/19. As part of the visit, an accurate medication list was obtained and the patient was given pre-op medication instru ctions for upcoming surgery on 11/13/19. Patient self-elected to stop taking Pradaxa on 10/24/19. Per Yaa with Dr. Brandon key, the patient should resume Pradaxa if greater than 5 days away from surger y. If less than 5 days away from surgery, the patient should continue holding Pr adaxa. Patient is to take one dose tonight (11/07/19) and then hold the Pradaxa f or the remaining of the time prior to surgery. The plan above was communicated to the patient's son, Marvin, and they verbalize d understanding. Lynn Cheney PHARMD R FAB OPERATOR documented in this encounter Plan of Treatment Order Schedule Name Type Priority Associated Diag noses Ordered: 11/07/2019 ECG 12-LEAD ECG Routine Atrial fibrilla tion, unspecified type (HCC) documented as of this encounter Procedures Comments Procedure Name Priority Date/Time Associated Diag nosis HC CBC,AUTOMATED Routine 11/07/2019 Larynx cancer (HCC) 8:39 AM WAFER FAB OPERATOR HC COMPREHENSIVE Routine 11/07/2019 Larynx cancer (HCC) METABOLIC PANEL 8:39 AM WAFER FAB OPERATOR ECG-SCAN 11/07/2019 12:00 AM WAFER FAB OPERATOR documented in this encounter Results * COMPREHENSIVE METABOLIC PANEL (11/07/2019 8:39 AM WAFER FAB OPERATOR) Sodium 130 (L) 137 - 147 [...] >60 >60 mL/min [facility] Comment: [place] The eGFR is not validated f or use in drug dosing adjustments. Continue to use estimated creatinine clearance per dosing reference text. Please contact the Clinical Pharmacist for questions. eGFR >60 >60 mL/min [facility] [place] Comment: The eGFR is not validated for use in drug dosing adjustments. Continue to use estimated creatinine clearance per dosing reference text. Please contact the Clinical Pharmacist for questions. Specimen Blood Performing Organization Address City/State/Zipcode Ph one Number MAIN LAB [address] [place] [address] * CBC (11/07/2019 8:39 AM WAFER FAB OPERATOR) White Blood 7.7 4.5 - 11.0 [...] MAIN LAB Specimen Blood Performing Organization Address [facility] Ph one Number MAIN LAB [address] [place] [address] * ECG-SCAN (11/07/2019 12:00 AM WAFER FAB OPERATOR) Narrative Performed At This result has an attachment that is n ot available. Ordered by an unspecified provider. 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
--- OUTSIDE RECORDS SUMMARY | 2019-12-21 09:33 | XMS REPORT | Encounter Summary ---
Author Author [facility] Organization [facility] Address Unknown Phone Unavailable Care Team Providers Care District Plant Supervisor Name Role Phone Eunice Vidal MD PCP Reason for Visit * Reason Comments Other Encounter Details Care Team Description Date Type Department BurNaman MD [address] Ortho/Med Pavilion Lvl 3C [place], [place] [phone] Other 11/02/2019 Telephone [facility] [address] 3 [place] [phone] Social History Date Tobacco Use Types Packs/Day [...] Telephone Encounter - Reny Vaca RN - 11/02/2019 3:44 PM SENIOR MANAGER CREATIVE SERVICES Notified patient of the PAT appointment. Day, time and location noted. Patient 's son is still concerned about his wait at the initial consult. Listened to th e patient's son express his concern for 10+ minutes. Expressed that this office would make every effort to decrease wait as able in the future. Order for the PET scan faxed to [facility] in [place]. OR MANAGER CREATIVE SERVICES * Telephone Encounter - Rekha Chaparro - 11/02/2019 1:30 PM SENIOR MANAGER CREATIVE SERVICES Pt son would like a call back to discuss PET scans and upcoming appointments. OR MANAGER CREATIVE SERVICES documented in this encounter Plan of Treatment Not on filedocumented as of this encounter Visit Diagnoses Not on filedocumented in this encounter
--- OUTSIDE RECORDS SUMMARY | 2019-12-21 09:33 | XMS REPORT | Encounter Summary ---
Author Author [facility] Organization [facility] Address Unknown Phone Unavailable Care Team Providers Care Rubber Washer Name Role Phone Eunice Vidal MD PCP Encounter Details Care Team Description Date Type Department Naman Mir MD [address] Ortho/Med Pavilion Lvl 3C [place], [place] [phone] Cancer of larynx (HCC) (Primary Dx) 10/31/2019 Prep for Case [facility] [address] [place] [phone] Social History Date Tobacco Use Types Packs/Day [...]
--- OUTSIDE RECORDS SUMMARY | 2019-12-21 09:33 | XMS REPORT | Encounter Summary ---
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 cancer (HCC) P rocedures NM PET SCAN TORSO (SKULL-THIGHS) Encounter Details Care Team Description Date Type Department Naman Mir MD [address] Ortho/Med Pavilion Lvl [address] [place] [phone] Laryngeal cancer (HCC) (Primary Dx); 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) 11/01/2019 Orders Only [facility] [address] [place] [address] Social History Date Tobacco Use [...] as of this encounter Plan of Treatment Order Schedule Name Type Priority Associated Diag noses Expected: 11/01/2019 (Approximate), Expi res: 11/01/2020 NM PET SCAN [facility] Imaging Routine Malignant ne oplasm of (SKULL-THIGHS) posterior wall of oropharynx (HCC) Laryngeal cancer (HCC) documented as of this encounter Visit Diagnoses Diagnosis Laryngeal cancer (HCC) Malignant neoplasm of larynx, unspecifi ed site 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
--- OUTSIDE RECORDS SUMMARY | 2019-12-21 09:33 | XMS REPORT | Encounter Summary ---
Author Author [facility] Organization [facility] Address Unknown Phone Unavailable Care Team Providers Care Transit Survey Worker Name Role Phone PCP Unavailable Reason for Visit * Reason Comments Navigation Assessment Encounter Details Care Team Description Date Type Department Evie Hendricks RN Navigation Assessment 10/25/2019 Telephone [facility] [address] [phone] Social History Date Tobacco Use Types Packs/Day Years Used Never Assessed Sex Assigned at Date Recorded Not on file Industry Job Start Date Occupation Not on file Not on file Not on file Travel End Travel History Travel Start No recent travel history available. documented as of this encounter Miscellaneous Notes * Telephone Encounter - Evie Hendricks RN - 10/25/2019 1:10 PM SPRAYER INSECTICIDE Navigation Intake Assessment Document Patient Name: Gracie Sloan : 1945 Insurance: [facility] Appointment Info: Future Appointments Date Time Provider Department Center 10/26/2019 1:00 PM [facility] Diagnosis & Reason for Visit: Hx epiglottic cancer, recurrence Physician Info: Referring Physician: Mike Huff MD Radiation Oncology: Dr. 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 She was treated with radiation therapy Pt has continued to smoke. Last March, she had persistent swelling in the darren on of the epiglottis, no gross tumor seen, however over the past two to three mo nths it has changed significantly. 10/12/19 CT Neck showed a tumor in the right supraglottis involving the epiglo ttis,preepiglottic space and the supraglottic false cord on the right per Dr. Usman jeter Pt went to ED yesterday d/t poor fluid intake in the past 3-4 days, no solid food, generalized weakness, and pain. She was given fluid, kept overnight and di scharged today. PMH: COPD Prior Treatment (XRT, Surgery, Chemotherapy): Radiation in 2018 total 33 fractions start08/30/18 end 09/20/18 Imagin10/12/19 CT Neck (OSH) Interval progression of the mass involving the right suprahyoid larynx, the righ t vocal cord, right piriform sinus, extends into the preepiglottic fat, epiglott is and abuts the right hyoid and thyroid cartilage. Comments: YER INSECTICIDE documented in this encounter Plan of Treatment Not on filedocumented as of this encounter Visit Diagnoses Not on filedocumented in this encounter
--- OUTSIDE RECORDS SUMMARY | 2019-12-21 09:33 | XMS REPORT | Encounter Summary ---
Author Author [facility] Organization [facility] Address Unknown Phone Unavailable Care Team Providers Care Global Risk Management Director Name Role Phone Eunice Vidal MD PCP Reason for Visit * Reason Comments Follow Up Erroneous encounter-disregard Encounter Details Care Team Description Date Type Department Eunice Vidal MD [address] [place] [address] Yesenia Hager MA,CCC-HOTEL DESK CLERK [address] Ortho/Med Pavilion Lvl [address] [place] [phone] ERRONEOUS ENCOUNTER--DISREGARD (Primary Dx) 10/31/2019 Clinical [facility] [address] [place] [phone] Social History Date Tobacco Use Types Packs/Day [...] Signs Reading Time Taken Comments Vital Sign 129/79 10/31/2019 1:09 PM LOCK AND DAM EQUIPMENT REPAIRER Blood Pressure 84 10/31/2019 1:09 PM LOCK AND DAM EQUIPMENT REPAIRER Pulse - - Temperature - - Respiratory Rate - - Oxygen Saturation - - Inhaled Oxygen Concentration - - Weight 160 cm (5' 3") 10/31/2019 1:09 PM LOCK AND DAM EQUIPMENT REPAIRER Height - - Body Mass Index documented in this encounter [...] as of this encounter Progress Notes * Yesenia Hager MA,CCC-HOTEL DESK CLERK - 10/31/2019 2:00 PM LOCK AND DAM EQUIPMENT REPAIRER This encounter was created in error. Please disregard. T documented in this encounter Plan of Treatment Not on filedocumented as of this encounter Visit Diagnoses Diagnosis ERRONEOUS ENCOUNTER--DISREGARD documented in this encounter
--- OUTSIDE RECORDS SUMMARY | 2019-12-21 09:33 | XMS REPORT | Encounter Summary ---
Author Author [facility] Organization [facility] Address Unknown Phone Unavailable Care Team Providers Care Drupal Web Developer Name Role Phone Eunice Vidal MD PCP Reason for Visit * Reason Comments Other Fax number Encounter Details Care Team Description Date Type Department Juan Decker MD [address] Ortho/Med Pavilion Lvl [address] [place], [place] [phone] Other (Fax number) 11/05/2019 Telephone [facility] [address] [place] [address] Social History Date Tobacco Use [...] Telephone Encounter - Reny Vaca RN - 11/05/2019 1:39 PM DIETARY AID Faxed as requested to [facility] to get the PET scan scheduled. [facility] * Telephone Encounter - Yari Cortez - 11/05/2019 10:48 AM DIETARY AID [facility] from [place] called and left a Vm about regarding a fax numbe r to them, they left fax number [phone] [facility] documented in this encounter Plan of Treatment Not on filedocumented as of this encounter Visit Diagnoses Not on filedocumented in this encounter
--- OUTSIDE RECORDS SUMMARY | 2019-12-21 09:33 | XMS REPORT | Encounter Summary ---
Author Author [facility] Organization [facility] Address Unknown Phone Unavailable Care Team Providers Care Cork Floor Installer Name Role Phone Eunice Vidal MD PCP Encounter Details Care Team Description Date Type Department Nelida Buenrostro MD [address] [address] [phone] Raymond Flores MD [address] [address] [phone] 11/13/2019 Anesthesia [facility] OR [address] [id number] Anesthesia Record Responsible Anesthesiologist Anesthesia Start Time [...] impairment: No documented as of this encounter OR Notes * Anesthesia Preprocedure Evaluation - Nelida Buenrostro MD - 11/07/2019 7:47 AM ELECTRICAL MAINTENANCE ENGINEER Anesthesia Pre-Procedure Evaluation Name: Gracie Sloan : 1945 Age: 74 y.o. Se x: female Procedure Info: Procedure Information Date/Time: 11/13/19 0800 Procedures: TRACHEOSTOMY PLANNED (N/A ) - CASE LENGTH 2 HOURS, REQUEST 1ST START DIRECT MICROLARYNGOSCOPY WITH BIOPSY (N/A ) BRONCHOSCOPY DIAGNOSTIC WITH CELL WASHING - FLEXIBLE (N/A ) RIGID ESOPHAGOSCOPY WITH SPECIMEN COLLECTION (N/A ) Location: [facility] OR08 / CA3 OR/Periop Surgeon: Naman Mir MD Physical Assessment Vital Signs (last filed in past 24 hours): BP: 140/85 (11/07 721) Temp: 36.6 C (97.8 F) (11/07 721) Pulse: 85 (11/07 721) Respirations: 18 PER MINUTE (11/07 721) SpO2: 96 % (11/07 721) Height: 160 cm (63") (11/07 721) Weight: 54 kg (119 lb) (11/07 721) Patient History Allergies Allergen Reactions Clindamycin UNKNOWN Hydrocodone SEE COMMENTS Heart races Warfarin SEE COMMENTS Blisters on feet Current Medications Medication Directions albuterol 0.083% (PROVENTIL) 2.5 mg /3 mL (0.083 %) nebulizer solution Inhale 3 mL solution by nebulizer as directed every 6 hours as needed. budesonide-formoterol (SYMBICORT) 160-4.5 mcg/actuation inhalation Inhale 2 puff s by mouth into the lungs twice daily. dabigatran (PRADAXA) 150 mg capsule Take 150 mg by mouth twice daily. doxazosin (CARDURA) 2 mg tablet Take 2 mg by mouth at bedtime daily. duloxetine DR (CYMBALTA) 60 mg capsule Take 60 mg by mouth twice daily. Twice da cynthia at noon and bedtime. fluticasone propionate (FLONASE) 50 mcg/actuation nasal spray, suspension 1 SPRA Y IN EACH NOSTRIL ONCE A DAY NASALLY furosemide (LASIX) 20 mg tablet Take 20 mg by mouth every morning. levothyroxine (SYNTHROID) 75 mcg tablet Take 75 mcg by mouth daily 30 minutes be fore breakfast. LIDOCAINE VISCOUS 2 % solution USE 1/2 TO 1 TEASPOON ( 2.5 TO 5 ML) EVERY 2-3 HO URS NEEDED FOR THROAT PAIN loratadine 10 mg cap Take 10 mg by mouth daily. methocarbamol (ROBAXIN) 750 mg tablet Take 750 mg by mouth three times daily. metoprolol XL (TOPROL XL) 200 mg extended release tablet Take 200 mg by mouth da cynthia. mirtazapine (REMERON) 30 mg tablet Take 30 mg by mouth at bedtime daily. morphine SR (MS CONTIN) 15 mg tablet Take 15 mg by mouth every [address] (PRILOSEC) 40 mg capsule Take 40 mg by mouth daily before breakfas t. polyethylene glycol 3350 (MIRALAX) 17 gram/dose powder Take 17 g by mouth daily. umeclidinium(+) (INCRUSE ELLIPTA) 62.5 mcg/actuation inhalation disk Inhale 1 pu ff by mouth into the lungs daily. VENTOLIN HFA 90 mcg/actuation aerosol inhaler Inhale 2 puffs by mouth into the l ungs every 4 hours as needed. Medical History: Diagnosis Date Alcoholism (HCC) Atrial fibrillation (HCC) Cancer (HCC) laryngeal cancer Chronic back pain COPD (chronic obstructive pulmonary disease) (HCC) inhaler every day Hearing loss Hypertension Osteoarthritis Seasonal allergic reaction Tobacco abuse Surgical History: Procedure Laterality Date COLONOSCOPY 2019 UPPER GASTROINTESTINAL ENDOSCOPY 2019 CATARACT REMOVAL Bilateral several years ago HEART CATHETERIZATION unknown dates around 2015 STOMACH SURGERY removed a third of her stomach Social History Socioeconomic History Marital status: Single Spouse name: Not on file Number of children: Not on file Years of education: Not on file Highest education level: Not on file Occupational History Not on file Tobacco Use Smoking status: Former Smoker Packs/day: 1.00 Years: 50.00 Pack years: 50.00 Last attempt to quit: 10/24/2019 Years since quittin.0 Smokeless tobacco: Never Used Substance and Sexual Activity Alcohol use: Not Currently Comment: quit 2-3 yrs sgo Drug use: Never Sexual activity: Not on file Other Topics Concern Not on file Social History Narrative Not on file Review of Systems/Medical History Patient summary reviewed Nursing notes reviewed Pertinent labs reviewed PONV Screening: Female gender and Non-smoker No history of anesthetic complications No family history of anesthetic complications Airway Flexible laryngoscopy 10/31/19 by ENT: Scope was now advanced distally. Visible oropharynx including lateral diaz and tongue base was clear without lesion. Mass involving epiglottis, vallecular and right right aryepiglottic fold. Post-radiation edema throughout. Difficult exam but seemingly normal true vocal cord mobility bilaterally.Airway was patent. CT neck 10/12/19 (outside records): Interval progression (compared to 05/2019 imaging) of the mass involving the righ t suprahyoid larynx, the right vocal cord, right piriform sinus, extends into th e preepiglottic fat, epiglottis and abuts the right hyoid and thyroid cartilage. Mineralization within the hyoid and thyroid appear stable compared to the prio r. No lymphadenopathy is identified. Pulmonary Not a current smoker (former smoker: 50 pack years, quit 10/24/19) COPD (scheduled inhaler; albuterol inhaler BID) Shortness of breath (chronic, stable) Home oxygen use (2L supplemental O2 continuous via NC; 96% O2 sat on 2L O2 a t PAT visit) Cardiovascular Recent diagnostic studies: ECG ECG 11/07/19: atrial fibrillation, rate 78, probable LVH Exercise tolerance: <4 METS (able to walk short distances (within apartment) 15 feet without CP or dyspnea with cane assist) Beta Fredis therapy: Yes Hypertension, No valvular problems/murmurs No past MO, Palpitations Dysrhythmias (Pradaxa self-discontinued 10/24/19; metoprolol); atrial fibrill ation No angina (denies since stress test 2018) PVD (carotid artery disease with serial imaging (per patient--records reques susana)) No hyperlipidemia No orthopnea PND Dyspnea on exertion (chronic, stable) GI/Hepatic/Renal GERD (PPI), Peptic ulcer disease (PPI, per patient--normal EGD 2018) No hx of liver disease No renal disease Electrolyte problem (h/o hyponatremia; states normal Na "124-125") Malnutrition 25 pound unintentional weight loss 2/2 dysphagia (no current solid food intake, painful liquid intake) planned future g tube placement partial gastrectomy 2/2 PUD 1970s Neuro/Psych No hx TIA No CVA Substance abuse (alcohol abuse, quit 2014) Chronic opioid use (MS Contin 15mg tabs: 1 tab BID) Sensory deficit (right eye blind) Musculoskeletal Neck pain (without ROM limitation) Back pain Endocrine/Other Hypothyroidism (Synthroid replacement) Anemia (Hgb range 2020 (outside records): 10.4-11.7--without h/o treatment a nd without etiology s/p GI studies (06/2019)) No adrenal insufficiency (reports possible adrenal cyst but denies insuffici ency) Malignancy (recurrent supraglottic SCC s/p epiglottic CA diagnosed 2017 s/p radiation completed 09/20/18.) Constitution - negative Physical Exam Airway Findings Mallampati: II TM distance: >3 FB Neck ROM: full Mouth opening: good Dental Findings: Poor dentition and increased risk for dental injury; pt advised Cardiovascular Findings: Rhythm: irregular Rate: normal No murmur, no carotid bruit, no peripheral edema Pulmonary Findings: Negative Abdominal Findings: Not obese Neurological Findings: Negative Alert and oriented x 3 Normal mental status Constitutional findings: Negative Diagnostic Tests Hematology: Lab Results Component Value Date HGB 10.5 11/07/2019 HCT 31.9 11/07/2019 PLTCT 497 11/07/2019 WBC 7.7 11/07/2019 MCV 89.2 11/07/2019 MCH 29.3 11/07/2019 MCHC 32.9 11/07/2019 MPV 6.8 11/07/2019 RDW 17.6 11/07/2019 General Chemistry: Lab Results Component Value Date NA 130 11/07/2019 K 4.2 11/07/2019 CL 93 11/07/2019 CO2 30 11/07/2019 GAP 7 11/07/2019 BUN 11 11/07/2019 CR 0.57 11/07/2019 GLU 100 11/07/2019 CA 8.5 11/07/2019 ALBUMIN 3.1 11/07/2019 TOTBILI 0.3 11/07/2019 Coagulation: No results found for: PT, PTT, INR Anesthesia Plan ASA score: 4 Induction method: intravenous Informed Consent Use of blood products discussed with patient Comments: (per Dr. 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 I do not believe she will tolerate salvage shahid rgery, which would require total laryngectomy, bilateral neck dissection and pec toralis major myocutaneous flap reconstruction. We briefly discussed alternativ es to surgery. I would like for her to meet with medical oncology to discuss alt ernatives to surgery including palliative chemotherapy and immunotherapy.") labs: CBC, CMP, ECG MANDIE: Dr. Neri (cardiology, [facility])--most recent OV note, ECHO, stress, cardiac cath, carotid duplex consult: none Patient hand-delivered cardiac clearance from Dr. Neri ([facility] ) dated 11/05/19. Patient self-discontinued (without direction from cardiology) Pradaxa 10/24/19 with instruction on clearance letter for 5 day hold of anticoagu lation (discrepancy in timing not noted). Radha Vaca PharmD, contacting [facility] ient's metallurgical engineering teacher for clarification of anticoagulation hold in interim between PAT appointment and DOS. Per Radha after discussion with cardiology office, patient's anticoagulation will be discussed with metallurgical engineering teacher with recommendat ions to follow--all recommendations to be conveyed to patient upon PAT receipt. Will continue to follow. S/s CVA discussed with patient and when to seek medical attention/proceed to ER. Patient verbalized understanding. Cardiac clearance as provided on 11/05/19: Cardiac risk for non-cardiac surgery i s estimated to be relatively: Intermediate This is based on the following: clinical evaluation of 11/05/19. Therefore, it w ould be reasonable to proceed with necessary surgery. May hold Pradaxa for 5 pe rioperative days. Cath 06/30 showed mild CAD, normal EF Labs reviewed upon PAT receipt. Patient anemic at 10.5; within 2020 range on ch art review (2019 labs available for review in outside records). Na 130 with pat ient denies s/s hyponatremia during PAT visit. Patient contacted with lab resul ts and continues to deny hyponatremia s/s, reports she will seek medical attenti on/proceed to ER if they develop prior to DOS. Patient is currently drinking En sure/[place] instant breakfast for nutrition, as she is unable to swallow micki d food. Patient encouraged to continue doing this with possible Gatorade or nitesh ctrolyte drinks to supplement. States she will do this. Repeat BMP ordered DOS . TRICAL MAINTENANCE ENGINEER documented in this encounter Plan of Treatment Not on filedocumented as of this encounter Visit Diagnoses Not on filedocumented in this encounter
--- OUTSIDE RECORDS SUMMARY | 2019-12-21 09:34 | XMS REPORT | Encounter Summary ---
Author Author [facility] Organization [facility] Address Unknown Phone Unavailable Care Team Providers Care Scale Tank Operator Name Role Phone PCP Unavailable Encounter Details Care Team Description Date Type Department 10/12/2019 [facility] [address] [address] Social History Date Tobacco Use Types Packs/Day Years Used Never Assessed Sex Assigned at Date Recorded Not on file Industry Job Start Date Occupation Not on file Not on file Not on file Travel End Travel History Travel Start No recent travel history available. documented as of this encounter Medications at Time of Discharge Start Date End Date Medication Sig Dispensed Refills 06/08/2016 fluticasone propionate 1 SPRAY IN 0 (FLONASE) 50 EACH NOSTRIL mcg/actuation nasal ONCE A DAY spray, suspension NASALLY 11/19/2014 furosemide (LASIX) 20 mg Take 20 mg by 0 tablet mouth every morning. 08/02/2019 LIDOCAINE VISCOUS 2 % USE 1/2 TO 1 0 solution TEASPOON ( 2.5 TO 5 ML) EVERY 2-3 HOURS NEEDED FOR THROAT PAIN 10/09/2014 loratadine 10 mg cap Take 10 mg by 0 mouth daily. 05/19/2015 metoprolol XL (TOPROL XL) Take 200 mg 0 200 mg extended release by mouth tablet daily. 09/20/[address] (PRILOSEC) Take 40 mg by 0 40 mg capsule mouth daily before breakfast. 10/09/2014 11/07/2019 diltiazem CD (CARDIZEM every 24 0 CD) 240 mg capsule hours. documented as of this encounter Plan of Treatment Not on filedocumented as of this encounter Procedures Comments Procedure Name Priority Date/Time Associated Diag nosis CT NECK EXTERNAL IMAGING Routine 10/12/2019 12:00 AM FILTER WASHER documented in this encounter Results * CT NECK EXTERNAL IMAGING (10/12/2019 12:00 AM FILTER WASHER) Specimen Narrative Performed At This order has been auto finalized and does not contain a result. documented in this encounter Visit Diagnoses Not on filedocumented in this encounter
--- OUTSIDE RECORDS SUMMARY | 2019-12-21 09:36 | XMS REPORT ---
Author Author Gracie PRASAD Organization [facility] Address [address] [place] [address] Care Team Providers Care Tissue Technician Name Role Phone SHANICEJCOBINNA Unavailable PROBLEMS Type Condition ICD9-CM Code [id number] Code Onset Dates Condition S tatus SNOMED Code Problem Irritable bowel syndrome without diarrhea K58.9 Active 74233768 Problem Hypothyroidism, unspecified hypothyroidism type E0 3.9 Active 21448584 Problem Other chronic pain G89.29 Active 8 4978461 Problem Nocturnal hypoxia G47.34 Active 38 0309591 Problem Chronic obstructive pulmonary disease, unspecified COPD ty pe J44.9 Active 77702613 Problem Essential hypertension I10 Active 29056938 Problem Dyslipidemia E78.5 Active 2406954 07 Problem Chronic pansinusitis J32.4 Active 98715729 Problem 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 Active 7687349 06 Problem 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 Active 231430675 Problem Anxiety F41.9 Active 91905929 Problem Other nonspecific abnormal finding of lung field R 91.8 Resolved 546565118 Problem Tobacco use Z72.0 Active 85957643 0 Problem Osteoporosis M81.0 Active 0067726 6 Problem Allergic rhinitis, unspecifi ed allergic rhinitis trigger, unspecified rhinitis seasonality J30.9 Active 7573641 4 Problem Drug induced constipation K59.03 Acti ve 705366617374381 Problem Primary insomnia F51.01 Active 397 2004 Problem Chronic pain syndrome G89.4 Active 192884490 Problem T12 compression fracture S22.080A Activ e 427582122 Problem Chronic sore throat J31.2 Active 564787755 Problem Paroxysmal atrial fibrillation I48.0 Active 305126337 Problem Degenerative disc disease, lumbar M51.36 Active 64641050 Problem Degenerative disc disease, cervical M50.30 Active 29762912 Problem Chronic prescription opiate use Z79.891 Active 360427096 Problem Iron deficiency anemia secondary to inadequate d ietary iron intake D50.8 Active 604190236 Problem Barretts esophagus with low grade dysplasia K22.71 0 Active 5132420442777607 Problem Debility R53.81 Active 07417953 Problem 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 Active 24445984 Problem Rectal bleeding K62.5 Active 1206 3002 Problem Degenerative disc disease, 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 Active 87916968 Problem Pharyngeal dysphagia R13.13 Active 76564402618335 Problem Pharyngeal dysphagia R13.13 Active 71709591217682 Problem Iron deficiency anemia secondary to inadequate d ietary iron intake D50.8 Active 350577198 ALLERGIES No Information ENCOUNTERS Encounter Location Date Diagnosis [place] [address] [address] Nov, [place] [address] [address] Nov, [place] [address] [address] Nov, [facility] [address] [address] Oct, [facility] [address] [address] Oct, [facility] [address] [address] Oct, [facility] [address] [address] Oct, [facility] [address] [address] Sep, [facility] [address] [address] Sep, [facility] [address] [address] 16 Sep, 2019 [place] [address] [address] 14 Sep, 2019 Iron deficiency anemia secondary to inad equate dietary iron intake D50.8 and Debility R53.81 [place] [address] [address] Sep, [facility] [address] [address] Sep, [facility] [address] [address] Sep, [facility] [address] [address] Sep, [facility] [address] [address] Sep, Other chronic pain G89.29 ; Osteoporosis M81.0 and 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 [place] [address] [address] Aug, [facility] [address] [address] Aug, Other chronic pain G89.29 [facility] [address] [address] Aug, [facility] [address] [address] Jul, Other chronic pain G89.29 [place] [address] [address] Jul, Other chronic pain G89.29 ; Chronic obst ructive pulmonary disease, unspecified COPD type J44.9 ; Osteoporosis M81.0 ; Chronic sore throat J31.2 and Iron deficiency anemia secondary to inadequate dietary iron intake D50.8 [facility] [address] [address] Jul, [facility] [address] [address] Jul, Iron deficiency anemia secondary to inad equate dietary iron intake D50.8 [facility] [address] [address] Jul, Other chronic pain G89.29 [place] [address] [id number] Jun, Dental examination Z01.20 and Caries K02 .9 [facility] [address] [place] [id number] Jun, Weakness R53.1 [facility] [address] [address] Jun, Other chronic pain G89.29 ; Tobacco use Z72.0 ; 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 ; Iron deficiency anemia secondary to inadequate dietary iron intake D50.8 ; Encounter for immunization Z23 ; Debility R53.81 and Dysuria R30.0 [facility] [address] [id number] Jun, Caries K02.9 and Dental examination Z01. 20 [facility] [address] [address] Jun, Other chronic pain G89.29 [facility] [address] [id number] May, Dental examination Z01.20 and Caries K02 .9 [facility] [address] [address] May, [facility] [address] [address] May, [facility] [address] [address] May, Other chronic pain G89.29 [facility] [address] [address] May, Weakness R53.1 [facility] [address] [place] [id number] Apr, Weakness R53.1 [facility] [address] [address] Apr, Weakness R53.1 [facility] [address] [place] [phone] Apr, [place] [address] [address] Apr, Throat swelling R22.1 ; Pharyngeal dysph agia R13.13 ; Weakness R53.1 and Tobacco use Z72.0 [place] [address] [address] Apr, [place] [address] [address] Apr, Chronic obstructive pulmonary disease, u nspecified COPD type J44.9 ; Essential hypertension I10 ; 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 ; Paroxysmal atrial fibrillation I48.0 and Hypothyroidism, unspecified hypothyroidism type E03.9 [place] [address] [address] Apr, Other chronic pain G89.29 [place] [address] [address] Mar, Chronic obstructive pulmonary disease, u nspecified COPD type J44.9 ; 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 ; Essential hypertension I10 ; Tobacco use Z72.0 ; Other chronic pain G89.29 ; Paroxysmal atrial fibrillation I48.0 and Hypothyroidism, unspecified hypothyroidism type E03.9 [place] [address] [address] Mar, Other chronic pain G89.29 [place] [address] [place] [address] Feb, [place] [address] [address] Feb, Other chronic pain G89.29 [place] [address] [address] January, Other chronic pain G89.29 [place] [address] [address] Dec, Other chronic pain G89.29 [place] [address] [address] Nov, [address] [address] Nov, Other chronic pain G89.29 [place] [address] [address] Oct, Essential hypertension I10 ; Squamous ce ll carcinoma of epiglottis C32.1 ; Chronic pansinusitis J32.4 ; Chronic prescription opiate use Z79.891 ; Degenerative disc disease, cervical M50.30 ; Degenerative disc disease, lumbar M51.36 ; Degenerative disc disease, 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 and Hyperkalemia E87.5 [place] [address] [address] Oct, Other chronic pain G89.[address] [address] Sep, [place] [address] [address] Sep, [address] [address] Sep, Other chronic pain G89.[address] [address] Sep, Essential hypertension I10 ; Other chron ic pain G89.29 ; 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 and Paroxysmal atrial fibrillation I48.[address] [address] Aug, Other chronic pain G89.[address] [address] Aug, Chronic obstructive pulmonary disease, u nspecified COPD type J44.9 and Hypoxia R09.[address] [address] Aug, Drug induced constipation K59.[address] [place] [id number] [place] [address] Aug, [facility] [address] [address] Aug, [facility] [address] [address] Jul, [facility] [address] [address] Jul, [facility] [address] [address] Jul, Other chronic pain G89.29 [facility] [address] [address] Jul, [facility] [address] [address] Jul, Barretts esophagus with low grade dyspla theresa K22.710 [facility] [address] [address] Jul, Tobacco use Z72.0 ; Essential hypertensi on I10 ; Other chronic pain G89.29 ; Hypothyroidism, unspecified hypothyroidism type E03.9 ; Osteoporosis M81.0 ; 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 ; Hyperkalemia E87.5 ; Encounter for immunization Z23 ; 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 and 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 [facility] [address] [address] Jul, [facility] [address] [address] Jun, [facility] [address] [place] [id number] [place] [id number] Jun, [facility] [address] [address] Jun, Other chronic pain G89.29 [facility] [address] [address] May, Other chronic pain G89.29 [place] [address] [address] May, Hyperkalemia E87.5 [place] [address] [address] 18 May, 2018 Hyperkalemia E87.5 [place] [address] [address] May, [place] [address] [address] May, Other chronic pain G89.29 [place] [address] [address] Apr, Hyperkalemia E87.5 [place] [address] [address] Apr, [place] [address] [address] Apr, Sore throat J02.9 ; Chronic sore throat J31.2 ; Otalgia, bilateral H92.03 ; Other chronic pain G89.29 ; Paroxysmal atrial fibrillation I48.0 ; Essential hypertension I10 ; Hypothyroidism, unspecified hypothyroidism type E03.9 ; Fatigue, unspecified type R53.83 ; 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 and Acute non-recurrent pansinusitis J01.40 [place] [address] [address] Apr, Chronic pain syndrome G89.4 [place] [address] [address] Apr, [place] [address] [address] Mar, [place] [address] [address] Mar, [place] [address] [address] Mar, Hypothyroidism, unspecified hypothyroidi sm type E03.9 [facility] [address] [place] [id number] [place] [address] Mar, [facility] [address] [place] [id number] [place] [address] Mar, Chronic pain syndrome G89.4 [facility] [address] [place] [id number] [place] [address] Mar, [facility] [address] [place] [id number] [place] [address] Mar, Chronic pain syndrome G89.4 [facility] [address] [place] [id number] [place] [address] Mar, [facility] [address] [place] [id number] [place] [address] Mar, Chronic pain syndrome G89.4 and Other ch ronic pain G89.29 [facility] [address] [place] [id number] [place] [address] Feb, Chronic obstructive pulmonary disease, u nspecified COPD type J44.9 [facility] [address] [place] [id number] [place] [address] Feb, [facility] [address] [place] [id number] [place] [address] Feb, [facility] [address] [place] [id number] [place] [address] Feb, [facility] [address] [place] [id number] [place] [address] Feb, [facility] [address] [place] [id number] [place] [address] Feb, [facility] [address] [place] [id number] [place] [address] Feb, Other chronic pain G89.29 ; Rectal bleed ing K62.5 and Chronic pain syndrome G89.4 [facility] [address] [place] [id number] [place] [address] Feb, [place] [address] [address] Feb, [place] [address] [address] 05 Feb, 2018 Other chronic pain G89.29 ; Essential hy pertension I10 ; Osteoporosis M81.0 ; Drug induced constipation K59.03 ; Chronic obstructive pulmonary disease, unspecified COPD type J44.9 ; Hypothyroidism, unspecified hypothyroidism type E03.9 ; 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 ; Right ear pain H92.01 and Sore throat J02.9 [place] [address] [address] January, [address] [address] January, Low back pain M54.5 ; Other chronic pain G89.29 ; Pain in thoracic spine M54.6 and Neck pain M54.[address] [address] Dec, Low back pain M54.5 ; Other chronic pain G89.29 ; Pain in thoracic spine M54.6 and Neck pain M54.[address] [address] Dec, Barretts esophagus with low grade dyspla theresa K22.710 and Chronic obstructive pulmonary disease, unspecified COPD type J44.9 [place] [address] [address] Dec, [address] [address] Dec, Hypothyroidism, unspecified hypothyroidi sm type E03.9 [place] [address] [address] Oct, Essential hypertension I10 [place] [address] [address] Oct, [place] [address] [address] 15 Sep, 2017 [place] [address] [address] Sep, Barretts esophagus with low grade dyspla theresa K22.710 [place] [address] [address] Aug, Drug induced constipation K59.03 [place] [address] [address] Aug, [place] [address] [address] Jul, Other chronic pain G89.29 [place] [address] [address] Jul, [place] [address] [address] Jul, Well woman exam (no gynecological exam) Z00.00 ; Encounter for immunization Z23 ; Tobacco use Z72.0 and 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 [place] [address] [address] Jul, [place] [address] [address] Jul, Drug induced constipation K59.03 [place] [address] [address] Jun, Chronic obstructive pulmonary disease, u nspecified COPD type J44.9 ; Tobacco use Z72.0 ; Hypothyroidism, unspecified hypothyroidism type E03.9 ; Other chronic pain G89.29 ; Drug induced constipation K59.03 and COPD exacerbation J44.1 [place] [address] [address] Jun, [place] [address] [address] Jun, [place] [address] [address] Jun, Osteoporosis M81.0 [facility] [address] [address] Jun, [facility] [address] [address] Jun, Other chronic pain G89.29 [facility] [address] [address] Jun, Other chronic pain G89.29 [facility] [address] [address] Jun, Hypothyroidism, unspecified hypothyroidi sm type E03.9 [facility] [address] [address] Jun, [facility] [address] [address] May, [facility] [address] [address] May, COPD exacerbation J44.1 ; Pain of left l ower extremity M79.605 ; Burn T30.0 ; Fatigue, unspecified type R53.83 ; Anemia, unspecified type D64.9 ; Adverse effect of other opioids, initial encounter T40.2X5A and Drug induced constipation K59.03 [facility] [address] [address] May, [facility] [address] [address] May, Burn T30.0 [facility] [address] [address] 18 May, 2017 Other chronic pain G89.29 and Burn T30.0 [facility] [address] [address] May, Other chronic pain G89.29 [facility] [address] [address] Apr, [place] [address] [address] Apr, [place] [address] [address] Apr, [place] [address] [address] Apr, [place] [address] [address] Apr, Other chronic pain G89.29 [place] [address] [address] 15 Apr, 2017 Fatigue, unspecified type R53.83 ; Hypot hyroidism, unspecified hypothyroidism type E03.9 ; Other chronic pain G89.29 ; Essential hypertension I10 ; Persistent atrial fibrillation I48.1 ; Chronic obstructive pulmonary disease, unspecified COPD type J44.9 ; Nocturnal hypoxia G47.34 ; Irritable bowel syndrome without diarrhea K58.9 ; Hyponatremia E87.1 ; Osteoporosis M81.0 and Primary insomnia F51.01 [place] [address] [address] Feb, [address] [address] January, [place] [address] [address] 13 Oct, 2016 Essential hypertension I10 [place] [address] [address] Sep, Shortness of breath R06.02 ; COPD with e xacerbation J44.1 and Weakness R53.[address] [address] Sep, Drug-induced constipation K59.03 and All ergic rhinitis, unspecified allergic rhinitis trigger, unspecified rhinitis seasonality J30.9 [place] [address] [address] Sep, [place] [address] [address] Sep, [place] [address] [address] Sep, [place] [address] [address] Jul, [place] [address] [address] Jul, Other chronic pain G89.29 ; Hematuria R3 1.9 ; Screening for breast cancer Z12.39 ; Anxiety F41.9 ; Primary insomnia F51.01 ; Drug-induced constipation K59.03 and Encounter for immunization Z23 [place] [address] [address] Jul, 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 [place] [address] [address] Jun, 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 and Hyponatremia E87. 1 [place] [address] [address] Jun, 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 and Hyponatremia E87. 1 [place] [address] [address] May, Hyponatremia E87.1 [place] [address] [address] May, Essential hypertension I10 ; Tobacco use Z72.0 ; Hyponatremia E87.1 ; Allergic rhinitis, unspecified allergic rhinitis trigger, unspecified rhinitis seasonality J30.9 and Osteoporosis M81.0 [place] [address] [address] Mar, [place] [address] [address] Mar, [place] [address] [address] Mar, Hyponatremia E87.1 [place] [address] [address] Feb, Essential hypertension I10 ; Hypothyroid ism, unspecified hypothyroidism type E03.9 ; Tobacco use [...] Concern about skin disease without diagnosis Z71.1 [place] [address] [address] Feb, [place] [address] [address] Feb, Other nonspecific abnormal finding of constantino ng field R91.8 [place] [address] [address] Dec, [place] [address] [address] Dec, [place] [address] [address] Nov, [place] [address] [address] Nov, [place] [address] [address] Oct, [place] [address] [address] Oct, [place] [address] [address] Oct, [place] [address] [address] Aug, Chronic obstructive pulmonary disease, u nspecified COPD type J44.9 [place] [address] [address] Aug, [facility] [address] [address] Aug, Rectal bleeding K62.5 and GERD (gastroes ophageal reflux disease) K21.9 [facility] [address] [address] Jul, [facility] [address] [address] Jul, 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 [facility] [address] [address] Jun, [facility] [address] [address] Jun, [facility] [address] [address] May, Adrenal mass 255.9 and Abnormal dexameth asone suppression test 794.6 [facility] [address] [address] May, Adrenal mass 255.9 [facility] [address] [address] May, [facility] [address] [address] May, Pneumonia 486 and COPD (chronic obstruct timoteo pulmonary disease) 496 [facility] [address] [address] 17 May, 2015 [facility] [address] [address] 14 May, 2015 [facility] [address] [address] 11 May, 2015 [facility] [address] [address] May, [facility] [address] [address] 09 May, 2015 [facility] [address] [address] May, [facility] [address] [address] May, Adrenal mass 255.9 [facility] [address] [address] Apr, Adrenal mass 255.9 ; Hypothyroidism 244. 9 ; Chronic sore throat 472.1 ; Atrial fibrillation 427.31 ; Hypertension 401.9 ; Generalized anxiety disorder 300.02 ; Chronic pain 338.29 and COPD (chronic obstructive pulmonary disease) 496 [facility] [address] [address] Apr, [facility] [address] [address] Apr, [facility] [address] [address] Mar, [facility] [address] [address] Mar, Adrenal mass 255.9 [facility] [address] [address] Mar, [facility] [address] [address] Mar, Chronic sore throat 472.1 and Adrenal ma ss 255.9 [facility] [address] [address] Mar, [facility] [address] [address] Feb, [facility] [address] [address] Feb, [facility] [address] [address] Feb, [facility] [address] [address] Feb, [facility] [address] [address] Feb, [facility] [id number] [place] [address] Feb, [facility] [id number] [place] [address] Feb, [facility] [id number] [place] [address] Feb, [facility] [address] [address] Feb, [facility] [id number] [place] [address] January, Adrenal mass 255.9 ; Hypothyroidism 244. 9 ; Chronic sore throat 472.1 ; Atrial fibrillation 427.31 ; Hypertension 401.9 ; Generalized anxiety disorder 300.02 ; Chronic pain 338.29 and COPD (chronic obstructive pulmonary disease) 496 [facility] [id number] [place] [address] January, [facility] [id number] [place] [address] January, [facility] [address] [address] January, Sinusitis 473.9 [facility] [id number] [place] [address] January, [facility] [id number] [place] [address] January, [facility] [id number] [place] [address] Dec, [facility] [id number] [place] [address] Dec, [facility] [id number] [place] [address] Nov, [facility] [address] [address] Nov, [facility] [address] [id number] [place] [address] Nov, [facility] [address] [id number] [place] [address] Nov, [facility] [address] [id number] [place] [address] Oct, 2014 [facility] [address] [id number] [place] [address] Oct, 2014 [facility] [address] [id number] [place] [address] Oct, 2014 [facility] [address] [id number] [place] [address] Oct, 2014 [facility] [address] [id number] [place] [address] Oct, 2014 [facility] [address] [id number] [place] [address] Oct, 2014 [facility] [address] [id number] [place] [address] Oct, 2014 [facility] [address] [id number] [place] [address] Oct, 2014 [facility] [address] [id number] [place] [address] Oct, 2014 [facility] [address] [id number] [place] [address] Oct, 2014 [facility] [address] [id number] [place] [address] Oct, 2014 [facility] [address] [id number] [place] [address] Oct, 2014 [facility] [address] [id number] [place] [address] Oct, 2014 [facility] [address] [id number] [place] [address] Oct, 2014 [facility] [address] [id number] [place] [address] Oct, [facility] [id number] [place] [address] Oct, [facility] [id number] [place] [address] Oct, [facility] [id number] [place] [address] Oct, [facility] [id number] [place] [address] Sep, [facility] [id number] [place] [address] Sep, [facility] [address] [id number] [place] [address] May, IMMUNIZATIONS No Known Immunizations SOCIAL HISTORY Never Assessed REASON FOR VISIT PA Methocarbamal-Approved PLAN OF CARE VITAL SIGNS MEDICATIONS Unknown [...] History Hypothyroidism Medical History Other nonspecific abnormal f inding of lung field (resolved 03/05/2016) Surgical History cholecystectomy Surgical History ulcer surgery Surgical History Throat biopsy 06/2018 Surgical History Colonoscopy/EGD 07/2019 Surgical History Heart Cath 07/2019 Hospitalization History [facility] [place]- Constipati on/Diarrhea 05/28/2017
[2019-12-21] MEDS ORDERED: NS IV 500 ML 500 ML IV PRN (09:46)
--- OUTSIDE RECORDS SUMMARY | 2019-12-21 09:49 | XMS REPORT | Continuity of Care Document ---
Author Organization Unknown Address Unknown Phone Unavailable Allergies Active Description Code Type Severity Reaction Onset Reported/Identified Relationship to Patient Clinical Status Yes hydrocodone [id number] Drug Aller gy Unknown N/A 11/17/2015 Yes warfarin [id number] Drug Allergy Moderate BLISTERS 06/28/2018 Yes hydrocodone [id number] Drug Aller gy Mild N/A 06/28/2018 Yes hydrocodone [id number] Drug Aller gy Mild Pt has received 07/27/2019 Medications There is no data. Problems Date Dx Coded Attending Type Code Diagnosis Diagnosed By 04/10/2008 OBINNA PRASAD MD 244 .9 HYPOTHYROIDISM 04/10/2008 CLARISSE GARCIA APRN 244.9 HYPOTHYROIDISM 06/13/2008 OBINNA PRASAD MD 338 .4 CHRONIC PAIN SYNDROME 06/13/2008 CLARISSE GARCIA APRN 338.4 CHRONIC PAIN SYNDROME 08/14/2008 OBINNA PRASAD MD 780 .79 MALAISE AND FATIGUE 08/14/2008 OBINNA PRASAD MD 788 .41 URINARY FREQUENCY 08/14/2008 CLARISSE GARCIA APRN 780.79 MALAISE AND FATIGUE 08/14/2008 CLARISSE GARCIA APRN 788.41 URINARY FREQUENCY 09/25/2008 OBINNA PRASAD MD 724 .2 lower back pain 09/25/2008 CLARISSE GARCIA APRN 724.2 lower back pain 11/12/2008 OBINNA PRASAD MD V72 .31 ROUTINE PELVIC EXAM WITH CERVICAL PAP SMEAR 11/12/2008 CLARISSE GARCIA APRN V72.31 ROUTINE PELVIC EXAM WITH CERVICAL PAP SMEAR 12/31/2008 OBINNA PRASAD MD 276 .1 PSEUDOHYPONATREMIA 12/31/2008 OBINNA PRASAD MD 401 .1 ESSENTIAL HYPERTENSION BENIGN 12/31/2008 OBINNA PRASAD MD 599 .70 blood in urine 12/31/2008 CLARISSE GARCIA APRN 276.1 PSEUDOHYPONATREMIA 12/31/2008 CLARISSE GARCIA APRN R 401.1 ESSENTIAL HYPERTENSION BENIGN 12/31/2008 CLARISSE GARCIA APRN R 599.70 blood in urine 03/12/2009 OBINNA PRASAD MD N 729 .82 muscle cramps in the thigh (upper leg) 03/12/2009 CLARISSE GARCIA APRN 729.82 muscle cramps in the thigh (upper leg) 05/09/2009 OBINNA PRASAD MD N NOD X NO DIAGNOSIS 05/09/2009 CLARISSE GARCIA APRN N ODX NO DIAGNOSIS 05/28/2009 OBINNA PRASAD MD N 492 .8 EMPHYSEMA 05/28/2009 OBINNA PRASAD MD N 724 .5 BACKACHE 05/28/2009 OBINNA PRASAD MD N 786 .05 shortness of breath 05/28/2009 CLARISSE GARCIA APRN R 492.8 EMPHYSEMA 05/28/2009 CLARISSE GARCIA APRN R 724.5 BACKACHE 05/28/2009 CLARISSE GARCIA APRN R [...] 535.40 09/18/2010 Ot 553.3 05/08/2011 Ot 414.01 COR ONARY ATHEROSCLEROSIS OF [place] CORON 05/08/2011 Ot 427.31 ATR IAL FIBRILLATION 05/08/2011 Ot 558.9 BETTY NF GASTROENTERIT NEC 05/08/2011 Ot 724.2 LUMBAGO 05/13/2011 Ot 038.9 SEPT ICEMIA NOS 05/13/2011 Ot 244.9 HYPO THYROIDISM NOS 05/13/2011 Ot 253.6 NEUR OHYPOPHYSIS DIS NEC 05/13/2011 Ot 293.0 DELI RIUM DUE TO CONDITIONS CLASSIFIED EL 05/13/2011 Ot 305.1 TOBA [employer]ATION MANAGER USE DISORDER 05/13/2011 Ot 338.29 OTH ER CHRONIC PAIN 05/13/2011 Ot 416.8 CHR PULMON HEART DIS NEC 05/13/2011 Ot 427.31 ATR IAL FIBRILLATION 05/13/2011 Ot 558.9 BETTY NF GASTROENTERIT NEC 05/13/2011 Ot 573.3 HEPA TITIS NOS 05/13/2011 Ot 593.9 ZAKIYA L URETERAL DIS NOS 05/13/2011 Ot 599.0 URIN TRACT INFECTION NOS 05/13/2011 Ot 719.49 BERHANE NT PAIN-MULT JTS 05/13/2011 Ot 724.5 BACK ACHE NOS 05/13/2011 Ot 995.91 SEPSIS 05/13/2011 Ot V12.59 HX- CIRCULATORY SYST DIS,NEC 05/13/2011 Ot V12.71 PER ARLETTE HISTORY OF PEPTIC ULCER DISEASE 04/05/2012 Ot 721.3 LUMB OSACRAL SPONDYLOSIS 04/05/2012 Ot 724.2 LUMBAGO 04/05/2012 Ot 737.30 IDI OPATHIC SCOLIOSIS 04/05/2012 Ot 846.0 SPRA IN LUMBOSACRAL 04/05/2012 Ot 922.31 MOLLY K CONTUSION 04/05/2012 Ot E000.8 OT ER EXTERNAL CAUSE STATUS 04/05/2012 Ot E849.0 ACC IDENT IN HOME 04/05/2012 Ot E888.9 FAL L NOS 07/11/2013 LELE HUGHES MD Ot 723. 1 CERVICALGIA 07/11/2013 LELE HUGHES MD Ot V57. 1 PHYSICAL THERAPY NEC 01/28/2014 LELE HUGHES MD Ot 338. 4 CHRONIC PAIN SYNDROME 01/28/2014 LELE HUGHES MD Ot 721. 3 LUMBOSACRAL SPONDYLOSIS 01/28/2014 LELE HUGHES MD Ot 722. 4 CERVICAL DISC DEGEN 01/28/2014 LELE HUGHES MD Ot 722. 52 LUMB/LUMBOSAC DISC DEGEN 01/28/2014 LELE HUGHES MD Ot 726. 5 ENTHESOPATHY OF HIP 01/28/2014 LELE HUGHES MD Ot 729. 1 MYALGIA AND MYOSITIS NOS 01/28/2014 LELE HUGHES MD Ot V58. 69 OTH MED,LT,CURRENT USE 05/17/2014 LELE HUGHES MD Ot 338. 4 CHRONIC PAIN SYNDROME 05/17/2014 LELE HUGHES MD Ot 721. 3 LUMBOSACRAL SPONDYLOSIS 05/17/2014 LELE HUGHES MD Ot 722. 52 LUMB/LUMBOSAC DISC DEGEN 05/17/2014 LELE HUGHES MD Ot 726. 5 ENTHESOPATHY OF HIP 05/17/2014 ELLE HUGHES MD Ot 729. 1 MYALGIA AND MYOSITIS NOS 05/17/2014 LELE HUGHES MD Ot V58. 61 ANTICOAGULANTS,LT,CURRENT USE 05/17/2014 LELE HUGHES MD Ot V58. 69 OTH MED,LT,CURRENT USE 05/22/2014 RAYNA FARAH MD Ot 244.9 HYPOTHYROIDISM NOS 05/22/2014 RAYNA FARAH MD Ot 414.01 CORONARY ATHEROSCLEROSIS OF [place] CORON 05/22/2014 RAYAN FARAH MD Ot 455.0 INT HEMORRHOID W/O COMPL 05/22/2014 RAYNA FARAH MD Ot 455.3 EXT HEMORRHOID W/O COMPL 05/22/2014 RAYNA FARAH MD Ot 530.11 REFLUX ESOPHAGITIS 05/22/2014 RAYNA FARAH MD Ot 535.50 UNSP GASTRITIS GASTRODUODENITIS W/O ME 05/22/2014 RAYNA FARAH MD Ot 553.3 DIAPHRAGMATIC HERNIA 05/22/2014 RAYNA FARAH MD Ot 787.99 OTHER GI SYSTEM SYMPTOMS 08/18/2014 CORNELIO BENEDICT MD Ot 276. 1 HYPOSMOLALITY 08/18/2014 CORNELIO BENEDICT MD A Ot 305. 1 TOBACCO USE DISORDER 08/18/2014 CORNELIO BENEDICT MD A Ot 427. 31 ATRIAL FIBRILLATION 08/18/2014 CORNELIO BENEDICT MD Ot 466. 0 ACUTE BRONCHITIS 08/18/2014 CORNELIO BENEDICT MD A Ot 724. 5 BACKACHE NOS 08/18/2014 CORNELIO BENEDICT MD Ot 786. 2 COUGH 08/20/2014 SHAYY PEOPLES MD Ot 255.9 08/20/2014 SHAYY PEOPLES MD Ot 789.30 10/09/2014 OBINNA PRASAD MD N 921 .0 BLACK EYE NOT OTHERWISE SPECIFIED 10/09/2014 OBINNA PRASAD MD N 959 .01 OTHER AND UNSPECIFIED INJURY TO HEAD 10/09/2014 CLARISSE GARCIA APRN R 921.0 BLACK EYE NOT OTHERWISE SPECIFIED 10/09/2014 CLARISSE GARCIA APRN R 959.01 OTHER AND UNSPECIFIED INJURY TO HEAD 10/10/2014 LELE HUGHES MD Ot 338. 4 10/10/2014 LELE HUGHES MD Ot 721. 3 10/10/2014 LELE HUGHES MD Ot 722. 52 10/10/2014 LELE HUGHES MD Ot 729. 1 10/10/2014 LELE HUGHES MD Ot V58. 69 10/11/2014 SHAYY PEOPLES MD Ot 255.9 10/11/2014 SHAYY PEOPLES MD Ot 789.30 10/21/2014 LELE HUGHES MD Ot 338. 4 10/21/2014 LELE HUGHES MD Ot 721. 3 10/21/2014 LELE HUGHES MD Ot 722. 52 10/21/2014 LELE HUGHES MD Ot 729. 1 10/21/2014 LELE HUGHES MD Ot V58. 69 10/25/2014 LELE HUGHES MD Ot 338. 4 CHRONIC PAIN SYNDROME 10/25/2014 LELE HUGHES MD Ot 721. 3 LUMBOSACRAL SPONDYLOSIS 10/25/2014 LELE HUGHES MD Ot 722. 52 LUMB/LUMBOSAC DISC DEGEN 10/25/2014 LELE HUGHES MD Ot 729. 1 MYALGIA AND MYOSITIS NOS 10/25/2014 LELE HUGHES MD Ot V58. 69 OT MED,LT,CURRENT USE 11/06/2014 CLARISSE GARCIA APRN 305.1 TOBACCO ABUSE 11/06/2014 CLARISSE GARCIA APRN 4 62 ACUTE PHARYNGITIS 11/06/2014 CLARISSE GARCIA APRN 535.50 GASTRITIS UNSPEC 11/06/2014 CLARISSE GARCIA APRN [...] Ot 786.59 12/31/2014 LELE HUGHES MD Ot 305. 1 12/31/2014 LELE HUGHES MD Ot 403. 90 12/31/2014 LELE HUGHES MD Ot 496 12/31/2014 LELE HUGHES MD Ot 585. 9 12/31/2014 LELE HUGHES MD Ot 721. 3 12/31/2014 LELE HUGHES MD Ot 722. 4 12/31/2014 LELE HUGHES MD Ot 722. 52 12/31/2014 LELE HUGHES MD Ot 729. 1 12/31/2014 LELE HUGHES MD Ot 785. 1 12/31/2014 LELE HUGHES MD Ot V58. 69 12/31/2014 LELE HUGHES MD Ot 246. 9 12/31/2014 LELE HUGHES MD Ot 300. 00 12/31/2014 LELE HUGHES MD Ot 305. 1 12/31/2014 LELE HUGHES MD Ot 477. 9 12/31/2014 LELE HUGHES MD Ot 721. 3 12/31/2014 LELE HUGHES MD Ot 722. 4 12/31/2014 LELE HUGHES MD Ot 722. 52 12/31/2014 LELE HUGHES MD Ot 729. 1 12/31/2014 LELE HUGHES MD Ot V58. 69 12/31/2014 LELE HUGHES MD Ot 721. 3 12/31/2014 LELE HUGHES MD Ot 722. 4 12/31/2014 LELE HUGHES MD Ot 722. 52 12/31/2014 LELE HUGHES MD Ot 729. 1 12/31/2014 LELE HUGHES MD Ot V58. 69 12/31/2014 LELE HUGHES MD Ot 721. 3 12/31/2014 LELE HUGHES MD Ot 722. 4 12/31/2014 LELE HUGHES MD Ot 722. 52 12/31/2014 LELE HUGHES MD Ot 724. 6 12/31/2014 LELE HUGHES MD Ot 729. 1 12/31/2014 LELE HUGHES MD Ot V58. 69 12/31/2014 RICHELLE LAU, SHAYY Burnett Ot V76.12 12/31/2014 LELE HUGHES MD Ot 721. 3 12/31/2014 LELE HUGHES MD Ot 722. 4 12/31/2014 LELE HUGHES MD Ot 722. 52 12/31/2014 LELE HUGHES MD Ot 724. 6 12/31/2014 LELE HUGHES MD Ot 729. 1 12/31/2014 LELE HUGHES MD Ot V58. 69 12/31/2014 RICHELLE LAU, SHAYY L Ot 253.6 12/31/2014 RICHELLE LAU, SHAYY L Ot 305.1 12/31/2014 RICHELLE LAU, SHAYY L Ot 783.21 12/31/2014 GAGAN LAU, [facility] Ot V72.84 12/31/2014 RICHELLE LAU, SHAYY L Ot 789.30 12/31/2014 RICHELLE LAU, SHAYY L Ot 255.9 12/31/2014 RICHELLE LAU, SHAYY L Ot 789.30 12/31/2014 LELE HUGHES MD Ot 338. 4 12/31/2014 LELE HUGHES MD Ot 721. 3 12/31/2014 LELE HUGHES MD Ot 722. 52 12/31/2014 LELE HUGHES MD Ot 729. 1 12/31/2014 LELE HUGHES MD Ot V58. 69 12/31/2014 OBINNA PRASAD MD Ot 921 .0 12/31/2014 OBINNA PRASAD MD Ot 959.01 12/31/2014 OBINNA PRASAD MD Ot E000.8 12/31/2014 OBINNA PRASAD MD Ot E849.0 12/31/2014 OBINNA PRASAD MD Ot E917.3 01/17/2015 LELE HUGHES MD Ot 338. 4 CHRONIC PAIN SYNDROME 01/17/2015 LELE HUGHES MD Ot 721. 3 LUMBOSACRAL SPONDYLOSIS 01/17/2015 LELE HUGHES MD Ot 722. 4 CERVICAL DISC DEGEN 01/17/2015 LELE HUGHES MD Ot 722. 52 LUMB/LUMBOSAC DISC DEGEN 01/17/2015 LELE HUGHES MD Ot 729. 1 MYALGIA AND MYOSITIS NOS 01/17/2015 LELE HUGHES MD Ot V58. 69 OT MED,LT,CURRENT USE 01/31/2015 LELE HUGHES MD Ot 724. 02 01/31/2015 LELE HUGHES MD Ot 733. 13 02/24/2015 Ot V15.89 02/24/2015 Ot V67.09 02/24/2015 [...] Ot 786.59 02/24/2015 LELE HUGHES MD Ot 305. 1 02/24/2015 LELE HUGHES MD Ot 403. 90 02/24/2015 LELE HUGHES MD Ot 496 02/24/2015 LELE HUGHES MD Ot 585. 9 02/24/2015 LELE HUGHES MD Ot 721. 3 02/24/2015 LELE HUGHES MD Ot 722. 4 02/24/2015 LELE HUGHES MD Ot 722. 52 02/24/2015 LELE HUGHES MD Ot 729. 1 02/24/2015 LELE HUGHES MD Ot 785. 1 02/24/2015 LELE HUGHES MD Ot V58. 69 02/24/2015 LELE HUGHES MD Ot 246. 9 02/24/2015 LELE HUGHES MD Ot 300. 00 02/24/2015 LELE HUGHES MD Ot 305. 1 02/24/2015 LELE HUGHES MD Ot 477. 9 02/24/2015 LELE HUGHES MD Ot 721. 3 02/24/2015 LELE HUGHES MD Ot 722. 4 02/24/2015 LELE HUGHES MD Ot 722. 52 02/24/2015 LELE HUGHES MD Ot 729. 1 02/24/2015 LELE HUGHES MD Ot V58. 69 02/24/2015 LELE HUGHES MD Ot 721. 3 02/24/2015 LELE HUGHES MD Ot 722. 4 02/24/2015 LELE HUGHES MD Ot 722. 52 02/24/2015 LELE HUGHES MD Ot 729. 1 02/24/2015 LELE HUGHES MD Ot V58. 69 02/24/2015 LELE HUGHES MD Ot 721. 3 02/24/2015 LELE HUGHES MD Ot 722. 4 02/24/2015 LELE HUGHES MD Ot 722. 52 02/24/2015 LELE HUGHES MD Ot 724. 6 02/24/2015 LELE HUGHES MD Ot 729. 1 02/24/2015 LELE HUGHES MD Ot V58. 69 02/24/2015 SHAYY PEOPLES MD Ot V76.12 02/24/2015 LELE HUGHES MD Ot 721. 3 02/24/2015 LELE HUGHES MD Ot 722. 4 02/24/2015 LELE HUGHES MD Ot 722. 52 02/24/2015 LELE HUGHES MD Ot 724. 6 02/24/2015 LELE HUGHES MD Ot 729. 1 02/24/2015 LELE HUGHES MD Ot V58. 69 02/24/2015 RICHELLE LAU, SHAYY Burnett Ot 253.6 02/24/2015 RICHELLE LAU, SHAYY L Ot 305.1 02/24/2015 RICHELLE LAU, SHAYY L Ot 783.21 02/24/2015 RAYNA FARAH MD Ot V72.84 02/24/2015 RICHELLE LAU, SHAYY L Ot 789.30 02/24/2015 RICHELLE LAU, SHAYY L Ot 255.9 02/24/2015 RICHELLE LAU, SHAYY L Ot 789.30 02/24/2015 LELE HUGHES MD Ot 338. 4 02/24/2015 LELE HUGHES MD Ot 721. 3 02/24/2015 LELE HUGHES MD Ot 722. 52 02/24/2015 LELE HUGHES MD Ot 729. 1 02/24/2015 LELE UHGHES MD Ot V58. 69 02/24/2015 OBINNA PRASAD MD Ot 921 .0 02/24/2015 OBINNA PRASAD MD Ot 959.01 02/24/2015 OBINNA PRASAD MD Ot E000.8 02/24/2015 OBINNA PRASAD MD Ot E849.0 02/24/2015 OBINNA PRASAD MD Ot E917.3 02/24/2015 LELE HUGHES MD Ot 724. 02 02/24/2015 LELE HUGHES MD Ot 733. 13 02/24/2015 LELE HUGHES MD Ot 724. 02 02/24/2015 LELE HUGHES MD Ot 733. 13 03/19/2015 OBINNA PRASAD MD Ot 255 .9 03/19/2015 OBINNA PRASAD MD Ot 244 .9 03/19/2015 OBINNA PRASAD MD Ot 401 .9 04/02/2015 OBINNA PRASAD MD Ot 255 .9 04/02/2015 OBINNA PRASAD MD N Ot 244 .9 04/02/2015 OBINNA PRASAD MD N Ot 401 .9 04/03/2015 KURTIS LAU, JOVANA P Ot 388.70 04/03/2015 KURTIS LAU, JOVANA P Ot 462 04/03/2015 KURTIS LAU, JOVANA P Ot 478 .5 04/21/2015 KURTIS LAU, JOVANA P Ot 388.70 04/21/2015 KURTIS LAU, JOVANA P Ot 462 04/21/2015 KURTIS LAU, JOVANA P Ot 478 .5 05/09/2015 LELE HUGHES MD Ot 338. 4 CHRONIC PAIN SYNDROME 05/09/2015 LELE HUGHES MD Ot 721. 3 LUMBOSACRAL SPONDYLOSIS 05/09/2015 LELE HUGHES MD Ot 722. 52 LUMB/LUMBOSAC DISC DEGEN 05/09/2015 LELE HUGHES MD Ot V58. 69 OT MED,LT,CURRENT USE 05/22/2015 OBINNA PRASAD MD Ot 038 .9 SEPTICEMIA NOS 05/22/2015 OBINNA PRASAD MD Ot 227 .0 BENIGN NEOPLASM ADRENAL 05/22/2015 OBINNA PRASAD MD Ot 244 .9 HYPOTHYROIDISM NOS 05/22/2015 OBINNA PRASAD MD Ot 276 .1 HYPOSMOLALITY 05/22/2015 OBINNA PRASAD MD Ot 305 .1 TOBACCO USE DISORDER 05/22/2015 OBINNA PRASAD MD Ot 401 .9 HYPERTENSION NOS 05/22/2015 OBINNA PRASAD MD Ot 427.31 ATRIAL FIBRILLATION 05/22/2015 OBINNA PRASAD MD Ot 428 .0 CONGESTIVE HEART FAILURE NOS 05/22/2015 OBINNA PRASAD MD Ot 472 .1 CHRONIC PHARYNGITIS 05/22/2015 OBINNA PRASAD MD Ot 486 PNEUMONIA, ORGANISM NOS 05/22/2015 OBINNA PRASAD MD Ot 492 .8 EMPHYSEMA NEC 05/22/2015 OBINNA PRASAD MD Ot 530.81 ESOPHAGEAL REFLUX 05/22/2015 OBINNA PRASAD MD Ot 530.85 PEREZ'S ESOPHAGUS 05/22/2015 OBINNA PRASAD MD Ot 553 .3 DIAPHRAGMATIC HERNIA 05/22/2015 OBINNA PRASAD MD Ot 722 .6 DISC DEGENERATION NOS 05/22/2015 OBINNA PRASAD MD Ot 995.91 SEPSIS 05/22/2015 OBINNA PRASAD MD Ot A41 .9 SEPSIS, UNSPECIFIED ORGANISM 05/22/2015 OBINNA PRASAD MD Ot D35.00 BENIGN NEOPLASM OF UNSPECIFIED ADRENAL G 05/22/2015 OBINNA PRASAD MD Ot E03 .9 HYPOTHYROIDISM, UNSPECIFIED 05/22/2015 OBINNA PRASAD MD Ot E87 .1 HYPO-OSMOLALITY AND HYPONATREMIA 05/22/2015 OBINNA PRASAD MD Ot F17.200 NICOTINE DEPENDENCE, UNSPECIFIED, UNCOMP 05/22/2015 OBINNA PRASAD MD Ot I10 ESSENTIAL (PRIMARY) HYPERTENSION 05/22/2015 OBINNA PRASAD MD Ot I48.91 UNSPECIFIED ATRIAL FIBRILLATION 05/22/2015 OBINNA PRASAD MD Ot I50 .9 HEART FAILURE, UNSPECIFIED 05/22/2015 OBINNA PRASAD MD, Ot J18 .9 PNEUMONIA, UNSPECIFIED ORGANISM 05/22/2015 OBINNA PRASAD MD, Ot J31 .2 CHRONIC PHARYNGITIS 05/22/2015 OBINNA PRASAD MD, Ot J43 .9 EMPHYSEMA, UNSPECIFIED 05/22/2015 OBINNA PRASAD MD, Ot K21 .9 GASTRO-ESOPHAGEAL REFLUX DISEASE WITHOUT 05/22/2015 OBINNA PRASAD MD Ot 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 26 OTHER INTERVERTEBRAL DISC DISPLACEMENT, 06/27/2015 LELE HUGHES MD, Ot M51. 36 OTHER INTERVERTEBRAL DISC DEGENERATION, 07/23/2015 OBINNA PRASAD MD, Ot J18 .9 08/11/2015 OBINNA PRASAD MD, Ot J18 .9 08/13/2015 MERRITT VALENZUELA DO Ot D35.00 08/25/2015 MERRITT VALENZUELA DO Ot D35.00 10/10/2015 LELE HUGHES MD Ot G89. 4 CHRONIC PAIN SYNDROME 10/10/2015 LELE HUGHES MD Ot M47.816 SPONDYLOSIS W/O MYELOPATHY OR RADICULOPA 10/10/2015 LELE HUGHES MD, Ot M51. 16 INTERVERTEBRAL DISC DISORDERS W RADICULO 10/10/2015 LELE HUGHES MD, Ot M53. 3 SACROCOCCYGEAL DISORDERS, NOT ELSEWHERE 10/10/2015 LELE HUGHES MD, Ot Z79. 01 HALF-WAY (CURRENT) USE OF ANTICOAGULANT 10/10/2015 LELE HUGHES MD Ot Z79.899 OTHER HALF-WAY (CURRENT) DRUG THERAPY 11/17/2015 Ot 458.9 11/18/2015 FABIANA BEJARANO MD Ot D35.00 BENIGN NEOPLASM OF UNSPECIFIED ADRENAL G 11/18/2015 FABIANA BEJARANO MD Ot F17.210 NICOTINE DEPENDENCE, CIGARETTES, UNCOMPL 11/18/2015 FABIANA BEJARANO MD Ot I48.91 UNSPECIFIED ATRIAL FIBRILLATION 11/18/2015 FABIANA BEJARANO MD, Ot J11.00 FLU DUE TO UNIDENTIFIED FLU VIRUS W UNSP 11/18/2015 FABIANA BEJARANO MD, Ot J18 .9 PNEUMONIA, UNSPECIFIED ORGANISM 11/18/2015 FABIANA BEJARANO MD, Ot J44 .9 CHRONIC OBSTRUCTIVE PULMONARY DISEASE, U 11/18/2015 FABIANA BEJARANO MD, Ot J96.11 CHRONIC RESPIRATORY FAILURE WITH HYPOXIA 11/18/2015 FABIANA BEJARANO MD Ot Z23 ENCOUNTER FOR IMMUNIZATION 01/29/2016 KIM THURSTON DO Ot K21. 9 GASTRO-ESOPHAGEAL REFLUX DISEASE WITHOUT 01/29/2016 THURSTON KIM BAER Ot K22. 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 9 GASTRO-ESOPHAGEAL REFLUX DISEASE WITHOUT 01/30/2016 THURSTON ELVER BAERTT Angus Ot K22. 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 01/30/2016 BINGEN KIM BAER Ot Z01.818 ENCOUNTER FOR OTHER PREPROCEDURAL EXAMIN 01/30/2016 BINGEN KIM BAER Ot Z86.010 PERSONAL HISTORY OF COLONIC POLYPS 03/01/2016 SHANICE LAU, OBINNA Corral Ot R91 .8 OTHER NONSPECIFIC ABNORMAL FINDING OF SUSAN 03/02/2016 VERONICA LAU FACC, ALI FACP CCDS Ot D35.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 03/02/2016 VERONICA LAU FACC, ALI FACP CCDS Ot E87.1 HYPO-OSMOLALITY AND HYPONATREMIA 03/02/2016 VERONICA MD FACC, ALI FACP CCDS Ot I10 ESSENTIAL (PRIMARY) HYPERTENSION 03/02/2016 VERONICA MARIEC, ALI FACP CCDS Ot I48.0 PAROXYSMAL ATRIAL FIBRILLATION 03/02/2016 VERONICA MARIEC, ALI FACP CCDS Ot I50.32 CHRONIC DIASTOLIC (CONGESTIVE) HEART FAROOQ 03/02/2016 VERONICA MARIEC, ALI FACP CCDS Ot J43.8 OTHER EMPHYSEMA 03/02/2016 VERONICA MARIEC, ALI FACP CCDS Ot Z72.0 TOBACCO USE 03/02/2016 OBINNA PRASAD MD Ot R91 .8 OTHER NONSPECIFIC ABNORMAL FINDING OF SUSAN 03/02/2016 NIVIA LAU, DIALLO Quinones Ot J44.9 CHRONIC OBSTRUCTIVE PULMONARY DISEASE, U 03/02/2016 VERONICA MARIEC, ALI FACP CCDS Ot D35.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 03/02/2016 VERONICA LAU FACC, ALI FACP CCDS Ot E87.1 HYPO-OSMOLALITY AND HYPONATREMIA 03/02/2016 VERONICA LAU FACC, ALI FACP CCDS Ot I10 ESSENTIAL (PRIMARY) HYPERTENSION 03/02/2016 VERONICA LAU FACC, ALI FACP CCDS Ot I48.0 PAROXYSMAL ATRIAL FIBRILLATION 03/02/2016 VERONICA LAU FACC, ALI FACP CCDS Ot I50.32 CHRONIC DIASTOLIC (CONGESTIVE) HEART FAROOQ 03/02/2016 VERONICA LAU FACC, ALI FACP CCDS Ot J43.8 OTHER EMPHYSEMA 03/02/2016 VERONICA LAU FACC, ALI FACP CCDS Ot Z72.0 TOBACCO USE 03/04/2016 OBINNA PRASAD MD Ot R91 .8 OTHER NONSPECIFIC ABNORMAL FINDING OF SUSAN 03/07/2016 VERONICA MARIEC, ALI FACP CCDS Ot D35.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 03/07/2016 VERONICA MARIEC, ALI FACP CCDS Ot E87.1 HYPO-OSMOLALITY AND HYPONATREMIA 03/07/2016 VERONICA LAU FACC, ALI FACP CCDS Ot I10 ESSENTIAL (PRIMARY) HYPERTENSION 03/07/2016 VERONICA LAU FACC, ALI FACP CCDS Ot I48.0 PAROXYSMAL ATRIAL FIBRILLATION 03/07/2016 VERONICA LAU FACC, ALI FACP CCDS Ot I50.32 CHRONIC DIASTOLIC (CONGESTIVE) HEART FAROOQ 03/07/2016 VERONICA LAU FACC, ALI FACP CCDS Ot J43.8 OTHER EMPHYSEMA 03/07/2016 VERONICA LAU FACC, ALI FACP CCDS Ot Z72.0 TOBACCO USE 03/30/2016 OBINNA PRASAD MD Ot R91 .8 OTHER NONSPECIFIC ABNORMAL FINDING OF SUSAN 03/30/2016 VERONICA MARIEC, ALI FACP CCDS Ot D35.02 BENIGN NEOPLASM [...] NEOPLASM OF LEFT ADRENAL GLAND 03/30/2016 VERONICA MARIEC, ALI FACP CCDS Ot E87.1 HYPO-OSMOLALITY AND HYPONATREMIA 03/30/2016 VERONICA LAU FACKaren, ALI FACP CCDS Ot I10 ESSENTIAL (PRIMARY) [...] DISEASE, U 04/12/2016 OBINNA PRASAD MD Ot R91 .8 OTHER NONSPECIFIC ABNORMAL FINDING OF SUSAN 08/09/2016 Ot 458.9 HYPO TENSION NOS 08/09/2016 Ot 511.9 PLEU RAL EFFUSION NOS 08/09/2016 Ot 511.9 PLEU RAL EFFUSION NOS 08/09/2016 Ot 429.3 CARD IOMEGALY 08/09/2016 Ot 511.9 PLEU RAL EFFUSION NOS 08/09/2016 Ot 518.0 PULM ONARY COLLAPSE 08/09/2016 Ot 428.0 SEVERINO ESTIVE HEART FAILURE NOS 08/09/2016 Ot 414.00 COR ON ATHEROSCLER NOS TYPE VESSEL, NATIV 08/09/2016 Ot 511.9 PLEU RAL EFFUSION NOS 08/09/2016 Ot V58.69 OTH MED,LT,CURRENT USE 08/09/2016 Ot 276.1 HYPO SMOLALITY 08/09/2016 Ot 511.9 PLEU RAL EFFUSION NOS 08/09/2016 Ot 276.1 HYPO SMOLALITY 08/09/2016 Ot 276.1 HYPO SMOLALITY 08/09/2016 Ot 791.9 ABN URINE FINDINGS NEC 08/09/2016 Ot 276.1 HYPO SMOLALITY 08/09/2016 Ot 275.2 DIS MAGNESIUM METABOLISM 08/09/2016 Ot 276.1 HYPO SMOLALITY 08/09/2016 Ot 276.9 ELEC TROLYT/FLUID DIS NEC 08/09/2016 Ot 275.2 DIS MAGNESIUM METABOLISM 08/09/2016 Ot 276.1 HYPO SMOLALITY 08/09/2016 Ot 276.8 HYPO POTASSEMIA 08/09/2016 Ot 733.00 OST EOPOROSIS NOS 08/09/2016 Ot 268.9 ELIANA MIN D DEFICIENCY NOS 08/09/2016 Ot 733.00 OST EOPOROSIS NOS 08/09/2016 Ot 733.90 BON E CARTILAGE DIS NOS 08/09/2016 Ot V76.12 OTH SCREEN MAMMO- MALIGN NEOPLASM OF GUERO 08/09/2016 Ot 789.01 ABD OMINAL PAIN, RIGHT UPPER QUADRANT 08/09/2016 Ot 401.9 HYPE RTENSION NOS 08/09/2016 Ot 440.20 ATH EROSCLEROSIS [place] ARTERIES EXTREMIT 08/09/2016 Ot 587 RENAL SCLEROSIS NOS 08/09/2016 Ot 722.4 CERV ICAL DISC DEGEN 08/09/2016 Ot 959.19 OTH INJURY OF OTHER SITES OF TRUNK 08/09/2016 Ot E000.8 OTH ER EXTERNAL CAUSE STATUS 08/09/2016 Ot E849.0 ACC IDENT IN HOME 08/09/2016 Ot E888.9 FAL L NOS 08/09/2016 Ot 253.6 NEUR OHYPOPHYSIS DIS NEC 08/09/2016 Ot 722.52 LUM B/LUMBOSAC DISC DEGEN 08/09/2016 Ot V54.17 AFT [employer]CARE HEALING TRAUMATIC FX VERTEBRAE 08/09/2016 Ot 244.9 HYPO THYROIDISM NOS 08/09/2016 Ot 253.6 NEUR OHYPOPHYSIS DIS NEC 08/09/2016 Ot 253.6 NEUR OHYPOPHYSIS DIS NEC 08/09/2016 Ot 305.1 TOBA COMMUNICATIONS STATION MANAGER USE DISORDER 08/09/2016 Ot 401.9 HYPE RTENSION NOS 08/09/2016 Ot 428.0 SEVERINO ESTIVE HEART FAILURE NOS 08/09/2016 Ot 433.30 MUL T BILTRAL ARTERY OCCLUSION WO CEREBRA 08/09/2016 Ot V76.12 OTH SCREEN MAMMO- MALIGN NEOPLASM OF GUERO 08/09/2016 Ot 253.6 NEUR OHYPOPHYSIS DIS NEC 08/09/2016 Ot 305.1 TOBA COMMUNICATIONS STATION MANAGER USE DISORDER 08/09/2016 Ot 496 CHR AI RWAY OBSTRUCT NEC 08/09/2016 Ot 786.05 WILFRID RTNESS OF BREATH 08/09/2016 Ot 427.31 ATR IAL FIBRILLATION 08/09/2016 Ot 780.79 OTH MALAISE FATIGUE 08/09/2016 Ot 785.1 PALP ITATIONS 08/09/[address] PAIN NOS 08/09/2016 Ot 786.05 WILFRID RTNESS OF BREATH 08/09/2016 Ot 786.2 COUGH 08/09/2016 Ot 427.31 ATR IAL FIBRILLATION 08/09/2016 Ot 780.79 OTH MALAISE FATIGUE 08/09/2016 Ot 785.1 PALP ITATIONS 08/09/[address] PAIN NEC 08/09/2016 LELE HUGHES MD Ot 305. 1 TOBACCO USE DISORDER 08/09/2016 LELE HUGHES MD Ot 403. 90 HYPTNSV CHR KID DIS, UNSPEC, W CHR KD ST 08/09/2016 LELE HUGHES MD Ot 496 CHR AIRWAY OBSTRUCT NEC 08/09/2016 LELE HUGHES MD Ot 585. 9 CHRONIC KIDNEY DISEASE, UNSPECIFIED 08/09/2016 LELE HUGHES MD Ot 721. 3 LUMBOSACRAL SPONDYLOSIS 08/09/2016 LELE HUGHES MD Ot 722. 4 CERVICAL DISC DEGEN 08/09/2016 LELE HUGHES MD Ot 722. 52 LUMB/LUMBOSAC DISC DEGEN 08/09/2016 LELE HUGHES MD Ot 729. 1 MYALGIA AND MYOSITIS NOS 08/09/2016 LELE HUGHES MD Ot 785. 1 PALPITATIONS 08/09/2016 LELE HUGHES MD Ot V58. 69 OTH MED,LT,CURRENT USE 08/09/2016 LELE HUGHES MD Ot 246. 9 DISORDER OF THYROID NOS 08/09/2016 LELE HUGHES MD Ot 300. 00 ANXIETY STATE NOS 08/09/2016 LELE HUGHES MD Ot 305. 1 TOBACCO USE DISORDER 08/09/2016 LELE HUGHES MD Ot 477. 9 ALLERGIC RHINITIS NOS 08/09/2016 LELE HUGHES MD Ot 721. 3 LUMBOSACRAL SPONDYLOSIS 08/09/2016 LELE HUGHES MD Ot 722. 4 CERVICAL DISC DEGEN 08/09/2016 LELE HUGHES MD Ot 722. 52 LUMB/LUMBOSAC DISC DEGEN 08/09/2016 LELE HUGHES MD Ot 729. 1 MYALGIA AND MYOSITIS NOS 08/09/2016 LELE HUGHES MD, Ot V58. 69 OTH MED,LT,CURRENT USE 08/09/2016 LELE HUGHES MD Ot 721. 3 LUMBOSACRAL SPONDYLOSIS 08/09/2016 LELE HUGHES MD Ot 722. 4 CERVICAL DISC DEGEN 08/09/2016 LELE HUGHES MD Ot 722. 52 LUMB/LUMBOSAC DISC DEGEN 08/09/2016 LELE HUGHES MD Ot 729. 1 MYALGIA AND MYOSITIS NOS 08/09/2016 LELE HUGHES MD Ot V58. 69 OTH MED,LT,CURRENT USE 08/09/2016 LELE HUGHES MD Ot 721. 3 LUMBOSACRAL SPONDYLOSIS 08/09/2016 LELE HUGHES MD Ot 722. 4 CERVICAL DISC DEGEN 08/09/2016 LELE HUGHES MD Ot 722. 52 LUMB/LUMBOSAC DISC DEGEN 08/09/2016 LELE HUGHES MD Ot 724. 6 DISORDERS OF SACRUM 08/09/2016 LELE HUGHES MD Ot 729. 1 MYALGIA AND MYOSITIS NOS 08/09/2016 LEEL HUGHES MD, Ot V58. 69 OTH MED,LT,CURRENT USE 08/09/2016 SHAYY PEOPLES MD Ot V76.12 OTH SCREEN MAMMO-MALIGN NEOPLASM OF GUERO 08/09/2016 LELE HUGHES MD Ot 721. 3 LUMBOSACRAL SPONDYLOSIS 08/09/2016 LELE HUGHES MD Ot 722. 4 CERVICAL DISC DEGEN 08/09/2016 LELE HUGHES MD Ot 722. 52 LUMB/LUMBOSAC DISC DEGEN 08/09/2016 LELE HUGHES MD Ot 724. 6 DISORDERS OF SACRUM 08/09/2016 LELE HUGHES MD Ot 729. 1 MYALGIA AND MYOSITIS NOS 08/09/2016 LELE HUGHES MD, Ot V58. 69 OTH MED,LT,CURRENT USE 08/09/2016 SHAYY PEOPLES MD Ot 253.6 NEUROHYPOPHYSIS DIS NEC 08/09/2016 RICHELLE LAU, SHAYY Burnett Ot 305.1 TOBACCO USE DISORDER 08/09/2016 SHAYY PEOPLES MD Ot 783.21 LOSS OF WEIGHT 08/09/2016 GAGAN LAU, ANGELINEDEEPA Ot V72.84 EXAM PRE-OPERATIVE NOS 08/09/2016 SHAYY PEOPLES MD Ot 789.30 ABDOMINAL/PELVIC SWELLING,MASS/LUMP UNSP 08/09/2016 SHAYY PEOPLES MD Ot 255.9 ADRENAL DISORDER N0S 08/09/2016 SHAYY PEOPLES MD Ot 789.30 ABDOMINAL/PELVIC SWELLING,MASS/LUMP UNSP 08/09/2016 LELE HUGHES MD Ot 338. 4 CHRONIC PAIN SYNDROME 08/09/2016 LELE HUGHES MD Ot 721. 3 LUMBOSACRAL SPONDYLOSIS 08/09/2016 LELE HUGHES MD Ot 722. 52 LUMB/LUMBOSAC DISC DEGEN 08/09/2016 LELE HUGHES MD Ot 729. 1 MYALGIA AND MYOSITIS NOS 08/09/2016 LELE HUGHES MD Ot V58. 69 OTH MED,LT,CURRENT USE 08/09/2016 SHANICE LAU, OBINNA Corral Ot 921 .0 BLACK EYE NOS 08/09/2016 OBINNA PRASAD MD Ot 959.01 HEAD INJURY, NOS 08/09/2016 OBINNA PRASAD MD Ot E000.8 OTHER EXTERNAL CAUSE STATUS 08/09/2016 OBINNA PRASAD MD Ot E849.0 ACCIDENT IN HOME 08/09/2016 OBINNA PRASAD MD Ot E917.3 FURNIT W/O SUB FALL 08/09/2016 LELE HUGHES MD Ot 724. 02 SPINAL STENOSIS, LUMBAR REG, W/OUT NEURO 08/09/2016 LELE HUGHES MD Ot 733. 13 PATHOLOGIC FRACTURE, VERTEBRAE 08/09/2016 OBINNA PRASAD MD Ot 255 .9 ADRENAL DISORDER N0S 08/09/2016 OBINNA PRASAD MD Ot 244 .9 HYPOTHYROIDISM NOS 08/09/2016 OBINNA PRASAD MD Ot 401 .9 HYPERTENSION NOS 08/09/2016 JOVANA HULL MD Ot 388.70 OTALGIA NOS 08/09/2016 JOVANA HULL MD Ot 462 ACUTE PHARYNGITIS 08/09/2016 JOVANA HULL MD Ot 478 .5 VOCAL CORD DISEASE NEC 08/09/2016 OBINNA PRASAD MD Ot J18 .9 PNEUMONIA, UNSPECIFIED ORGANISM 08/09/2016 MERRITT VALENZUELA DO L Ot D35.00 BENIGN NEOPLASM OF UNSPECIFIED ADRENAL G 08/09/2016 OBINNA PRASAD MD Ot R91 .8 OTHER NONSPECIFIC ABNORMAL FINDING OF [place] 08/09/2016 VERONICA LAU FACC, TERRY FACP CCDS Ot D35.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 08/09/2016 VERONICA LAU FACC, ALI FACP CCDS Ot E87.1 HYPO-OSMOLALITY AND HYPONATREMIA 08/09/2016 VERONICA LAU FACC, ALI FACP CCDS Ot I10 ESSENTIAL (PRIMARY) HYPERTENSION 08/09/2016 VERONICA LAU FACC, TERRY FACP CCDS Ot I48.0 PAROXYSMAL ATRIAL FIBRILLATION 08/09/2016 VERONICA LAU FACC, TERRY FACP CCDS Ot I50.32 CHRONIC DIASTOLIC (CONGESTIVE) HEART FAROOQ 08/09/2016 VERONICA LAU FACC ALI FACP CCDS Ot J43.8 OTHER EMPHYSEMA 08/09/2016 VERONICA LAU FACC ALI FACP CCDS Ot Z72.0 TOBACCO USE 08/09/2016 NIVIA LAU, DIALLO S Ot J44.9 CHRONIC OBSTRUCTIVE PULMONARY DISEASE, U 08/10/2016 NIVIA LAU, DIALLO Quinones Ot J44.9 CHRONIC OBSTRUCTIVE PULMONARY DISEASE, U 08/16/2016 SAUL LAU, LELE Mera Ot M51. 16 INTERVERTEBRAL DISC DISORDERS W RADICULO 09/03/2016 NIVIA LAU, DIALLO Quinones Ot J44.9 CHRONIC OBSTRUCTIVE PULMONARY DISEASE, U 09/09/2016 NIVIA LAU, DIALLO Quinones Ot J44.9 CHRONIC [...] 09/13/2016 TOSHIA DUENAS DO Ot Z79.899 OTHER HALF-WAY (CURRENT) DRUG THERAPY 09/15/2016 TOSHIA DUENAS DO Ot F17.210 NICOTINE DEPENDENCE, CIGARETTES, UNCOMPL 09/15/2016 TOSHIA DUENAS DO Ot I48.2 CHRONIC ATRIAL FIBRILLATION 09/15/2016 TOSHIA DUENAS DO Ot I50.9 HEART FAILURE, UNSPECIFIED 09/15/2016 TOSHIA DUENAS DO Ot J44.1 CHRONIC OBSTRUCTIVE PULMONARY DISEASE W 09/15/2016 TOSHIA DUENAS DO Ot R06.02 SHORTNESS OF BREATH 09/15/2016 TOSHIA DUENAS DO Ot Z79.899 OTHER SPECIMEN BOSS (CURRENT) DRUG THERAPY 09/15/2016 TOSHIA DUENAS DO Ot F17.210 NICOTINE DEPENDENCE, CIGARETTES, UNCOMPL 09/15/2016 TOSHIA DUENAS DO Ot I48.2 CHRONIC ATRIAL FIBRILLATION 09/15/2016 TOSHIA DUENAS DO Ot I50.9 HEART FAILURE, UNSPECIFIED 09/15/2016 TOSHIA DUENAS DO Ot J44.1 CHRONIC OBSTRUCTIVE PULMONARY DISEASE W 09/15/2016 TOSHIA DUENAS DO Ot R06.02 SHORTNESS OF BREATH 09/15/2016 TOSHIA DUENAS DO Ot Z79.899 OTHER SPECIMEN BOSS (CURRENT) DRUG THERAPY 09/15/2016 LELE HUGHES MD Ot M51. 16 INTERVERTEBRAL DISC DISORDERS W RADICULO 10/01/2016 ADINA LOZANO MD Ot R06.0 2 SHORTNESS OF BREATH 10/21/2016 ADINA LOZANO MD Ot R06.0 2 SHORTNESS OF BREATH 11/02/2016 ADINA LOZANO MD Ot R06.0 2 SHORTNESS OF BREATH 11/05/2016 LELE HUGHES MD Ot G89. 4 CHRONIC PAIN SYNDROME 11/05/2016 LELE HUGHES MD Ot M47.816 SPONDYLOSIS W/O MYELOPATHY OR RADICULOPA 11/05/2016 LELE HUGHES MD Ot M51. 16 INTERVERTEBRAL DISC DISORDERS W RADICULO 11/05/2016 LELE HUGHES MD Ot M53. 3 SACROCOCCYGEAL DISORDERS, NOT ELSEWHERE 11/05/2016 LELE HUGHES MD Ot Z79.899 OTHER SPECIMEN BOSS (CURRENT) DRUG THERAPY 11/07/2016 NIVIA LAU, DIALLO S Ot J44.9 CHRONIC OBSTRUCTIVE PULMONARY DISEASE, U 05/11/2017 VERONICA LAU FACC, ALI FACP CCDS Ot I73.89 OTHER SPECIFIED PERIPHERAL VASCULAR DISE 05/11/2017 Ot 458.9 HYPO TENSION NOS 05/11/2017 Ot 789.01 ABD OMINAL PAIN, RIGHT UPPER QUADRANT 05/11/2017 Ot 401.9 HYPE RTENSION NOS 05/11/2017 Ot 440.20 ATH EROSCLEROSIS [place] ARTERIES EXTREMIT 05/11/2017 Ot 587 RENAL SCLEROSIS NOS 05/11/2017 Ot 722.4 CERV ICAL DISC DEGEN 05/11/2017 Ot 959.19 OTH INJURY OF OTHER SITES OF TRUNK 05/11/2017 Ot E000.8 OTH ER EXTERNAL CAUSE STATUS 05/11/2017 Ot E849.0 ACC IDENT IN HOME 05/11/2017 Ot E888.9 FAL L NOS 05/11/2017 Ot 253.6 NEUR OHYPOPHYSIS DIS NEC 05/11/2017 Ot 722.52 LUM B/LUMBOSAC DISC DEGEN 05/11/2017 Ot V54.17 AFT [employer] HEALING TRAUMATIC FX VERTEBRAE 05/11/2017 Ot 244.9 HYPO THYROIDISM NOS 05/11/2017 Ot 253.6 NEUR OHYPOPHYSIS DIS NEC 05/11/2017 Ot 253.6 NEUR OHYPOPHYSIS DIS NEC 05/11/2017 Ot 305.1 TOBA COMMUNICATIONS STATION MANAGER USE DISORDER 05/11/2017 Ot 401.9 HYPE RTENSION NOS 05/11/2017 Ot 428.0 SEVERINO ESTIVE HEART FAILURE NOS 05/11/2017 Ot 433.30 MUL T BILTRAL ARTERY OCCLUSION WO CEREBRA 05/11/2017 Ot V76.12 OTH SCREEN MAMMO- MALIGN NEOPLASM OF [place] 05/11/2017 Ot 253.6 NEUR OHYPOPHYSIS DIS NEC 05/11/2017 Ot 305.1 TOBA COMMUNICATIONS STATION MANAGER USE DISORDER 05/11/2017 Ot 496 CHR AI RWAY OBSTRUCT NEC 05/11/2017 Ot 786.05 WILFRID RTNESS OF BREATH 05/11/2017 Ot 427.31 ATR IAL FIBRILLATION 05/11/2017 Ot 780.79 OTH MALAISE FATIGUE 05/11/2017 Ot 785.1 PALP ITATIONS 05/11/[address] PAIN NOS 05/11/2017 Ot 786.05 WILFRID RTNESS OF BREATH 05/11/2017 Ot 786.2 COUGH 05/11/2017 Ot 427.31 ATR IAL FIBRILLATION 05/11/2017 Ot 780.79 OTH MALAISE FATIGUE 05/11/2017 Ot 785.1 PALP ITATIONS 05/11/[address] PAIN NEC 05/11/2017 LELE HUGHES MD Ot 305. 1 TOBACCO USE DISORDER 05/11/2017 LELE HUGHES MD Ot 403. 90 HYPTNSV CHR KID DIS, UNSPEC, W CHR KD ST 05/11/2017 LELE HUGHES MD Ot 496 CHR AIRWAY OBSTRUCT NEC 05/11/2017 LELE HUGHES MD Ot 585. 9 CHRONIC KIDNEY DISEASE, UNSPECIFIED 05/11/2017 LELE HUGHES MD Ot 721. 3 LUMBOSACRAL SPONDYLOSIS 05/11/2017 LELE HUGHES MD Ot 722. 4 CERVICAL DISC DEGEN 05/11/2017 LELE HUGHES MD Ot 722. 52 LUMB/LUMBOSAC DISC DEGEN 05/11/2017 LELE HUGHES MD Ot 729. 1 MYALGIA AND MYOSITIS NOS 05/11/2017 LELE HUGHES MD Ot 785. 1 PALPITATIONS 05/11/2017 LELE HUGHES MD Ot V58. 69 OTH MED,LT,CURRENT USE 05/11/2017 LELE HUGHES MD Ot 246. 9 DISORDER OF THYROID NOS 05/11/2017 LELE HUGHES MD Ot 300. 00 ANXIETY STATE NOS 05/11/2017 LELE HUGHES MD Ot 305. 1 TOBACCO USE DISORDER 05/11/2017 LELE HUGHES MD Ot 477. 9 ALLERGIC RHINITIS NOS 05/11/2017 LELE HUGHES MD Ot 721. 3 LUMBOSACRAL SPONDYLOSIS 05/11/2017 LELE HUGHES MD Ot 722. 4 CERVICAL DISC DEGEN 05/11/2017 LELE HUGHES MD Ot 722. 52 LUMB/LUMBOSAC DISC DEGEN 05/11/2017 LELE HUGHES MD Ot 729. 1 MYALGIA AND MYOSITIS NOS 05/11/2017 LELE HUGHES MD, Ot V58. 69 OTH MED,LT,CURRENT USE 05/11/2017 LELE HUGHES MD Ot 721. 3 LUMBOSACRAL SPONDYLOSIS 05/11/2017 LELE HUGHES MD Ot 722. 4 CERVICAL DISC DEGEN 05/11/2017 LELE HUGHES MD Ot 722. 52 LUMB/LUMBOSAC DISC DEGEN 05/11/2017 LELE HUGHES MD Ot 729. 1 MYALGIA AND MYOSITIS NOS 05/11/2017 LELE HUGHES MD, Ot V58. 69 OTH MED,LT,CURRENT USE 05/11/2017 LELE HUGHES MD Ot 721. 3 LUMBOSACRAL SPONDYLOSIS 05/11/2017 LELE HUGHES MD Ot 722. 4 CERVICAL DISC DEGEN 05/11/2017 LELE HUGHES MD Ot 722. 52 LUMB/LUMBOSAC DISC DEGEN 05/11/2017 LELE HUGHES MD Ot 724. 6 DISORDERS OF SACRUM 05/11/2017 LELE HUGHES MD Ot 729. 1 MYALGIA AND MYOSITIS NOS 05/11/2017 LELE HUGHES MD, Ot V58. 69 OTH MED,LT,CURRENT USE 05/11/2017 SHAYY PEOPLES MD Ot V76.12 OTH SCREEN MAMMO-MALIGN NEOPLASM OF [place] 05/11/2017 LELE HUGHES MD Ot 721. 3 LUMBOSACRAL SPONDYLOSIS 05/11/2017 LELE HUGHES MD Ot 722. 4 CERVICAL DISC DEGEN 05/11/2017 LELE HUGHES MD Ot 722. 52 LUMB/LUMBOSAC DISC DEGEN 05/11/2017 LELE HUGHES MD Ot 724. 6 DISORDERS OF SACRUM 05/11/2017 LELE HUGHES MD Ot 729. 1 MYALGIA AND MYOSITIS NOS 05/11/2017 LELE HUGHES MD, Ot V58. 69 OTH MED,LT,CURRENT USE 05/11/2017 SHAYY PEOPLES MD Ot 253.6 NEUROHYPOPHYSIS DIS NEC 05/11/2017 SHAYY PEOPLES MD L Ot 305.1 TOBACCO USE DISORDER 05/11/2017 SHAYY PEOPLES MD Ot 783.21 LOSS OF WEIGHT 05/11/2017 GAGAN LAU, ANGELINEDEEPA Ot V72.84 EXAM PRE-OPERATIVE NOS 05/11/2017 SHAYY PEOPLES MD Ot 789.30 ABDOMINAL/PELVIC SWELLING,MASS/LUMP UNSP 05/11/2017 SHAYY PEOPLES MD Ot 255.9 ADRENAL DISORDER N0S 05/11/2017 SHAYY PEOPLES MD Ot 789.30 ABDOMINAL/PELVIC SWELLING,MASS/LUMP UNSP 05/11/2017 LELE HUGHES MD Ot 338. 4 CHRONIC PAIN SYNDROME 05/11/2017 LELE HUGHES MD Ot 721. 3 LUMBOSACRAL SPONDYLOSIS 05/11/2017 LELE HUGHES MD Ot 722. 52 LUMB/LUMBOSAC DISC DEGEN 05/11/2017 LELE HUGHES MD Ot 729. 1 MYALGIA AND MYOSITIS NOS 05/11/2017 LELE HUGHES MD Ot V58. 69 OTH MED,LT,CURRENT USE 05/11/2017 OBINNA PRASAD MD Ot 921 .0 BLACK EYE NOS 05/11/2017 OBINNA PRASAD MD Ot 959.01 HEAD INJURY, NOS 05/11/2017 OBINNA PRASAD MD Ot E000.8 OTHER EXTERNAL CAUSE STATUS 05/11/2017 OBINNA PRASAD MD Ot E849.0 ACCIDENT IN HOME 05/11/2017 OBINNA PRASAD MD Ot E917.3 FURNIT W/O SUB FALL 05/11/2017 LELE HUGHES MD Ot 724. 02 SPINAL STENOSIS, LUMBAR REG, W/OUT NEURO 05/11/2017 SAUL LAU, LELE Mera Ot 733. 13 PATHOLOGIC FRACTURE, VERTEBRAE 05/11/2017 OBINNA PRASAD MD Ot 255 .9 ADRENAL DISORDER N0S 05/11/2017 OBINNA PRASAD MD Ot 244 .9 HYPOTHYROIDISM NOS 05/11/2017 OBINNA PRASAD MD Ot 401 .9 HYPERTENSION NOS 05/11/2017 JOVANA HULL MD Ot 388.70 OTALGIA NOS 05/11/2017 JOVANA HULL MD Ot 462 ACUTE PHARYNGITIS 05/11/2017 JOVANA HULL MD Ot 478 .5 VOCAL CORD DISEASE NEC 05/11/2017 OBINNA PRASAD MD Ot J18 .9 PNEUMONIA, UNSPECIFIED ORGANISM 05/11/2017 MERRITT VALENZUELA DO Ot D35.00 BENIGN NEOPLASM OF UNSPECIFIED ADRENAL G 05/11/2017 OBINNA PRASAD MD Ot R91 .8 OTHER NONSPECIFIC ABNORMAL FINDING OF SUS[place] 05/11/2017 VERONICA LAU FAC, ALI FACP CCDS Ot D35.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 05/11/2017 VERONICA MARIE, ALI FACP CCDS Ot E87.1 HYPO-OSMOLALITY AND HYPONATREMIA 05/11/2017 VERONICA MARIE, ALI FACP CCDS Ot I10 ESSENTIAL (PRIMARY) HYPERTENSION 05/11/2017 VERONICA MARIE, ALI FACP CCDS Ot I48.0 PAROXYSMAL ATRIAL FIBRILLATION 05/11/2017 VERONICA LAU FACC, ALI FACP CCDS Ot I50.32 CHRONIC DIASTOLIC (CONGESTIVE) HEART FAROOQ 05/11/2017 VERONICA LAU FACC, ALI FACP CCDS Ot J43.8 OTHER EMPHYSEMA 05/11/2017 VERONICA LAU FACC, ALI FACP CCDS Ot Z72.0 TOBACCO USE 05/11/2017 DIALLO GONZÁLES MD S Ot J44.9 CHRONIC OBSTRUCTIVE PULMONARY DISEASE, U 05/11/2017 BLAKE LAU, ADINA Mullins Ot R06.0 2 SHORTNESS OF BREATH 05/11/2017 DIALLO GONZÁLES MD S Ot J44.9 CHRONIC OBSTRUCTIVE PULMONARY DISEASE, U 05/11/2017 VERONICA LAU FACC, ALI FACP CCDS Ot I73.89 OTHER SPECIFIED PERIPHERAL VASCULAR DISE 05/28/2017 EMELY ESTES Ot E03.9 HYPOTHYROIDISM, UNSPECIFIED 05/28/2017 EMELY ESTES Ot F17.200 NICOTINE DEPENDENCE, UNSPECIFIED, UNCOMP 05/28/2017 EMELY ESTES Ot F41.9 ANXIETY DISORDER, UNSPECIFIED 05/28/2017 EMELY ESTES Ot I 10 ESSENTIAL (PRIMARY) HYPERTENSION 05/28/2017 EMELY ESTES Ot I25.10 ATHSCL HEART DISEASE OF [place] CORONARY 05/28/2017 EMELY ESTES Ot I48.91 UNSPECIFIED ATRIAL FIBRILLATION 05/28/2017 EMELY ESTES Ot J43.9 EMPHYSEMA, UNSPECIFIED 05/28/2017 EMELY ESTSE Ot K21.9 GASTRO-ESOPHAGEAL REFLUX DISEASE WITHOUT 05/28/2017 [...] TAP-WATER, INITIA 05/28/2017 EMELY ESTES Ot Y92.[address] [facility] [address] IN [facility] (PRIVATE 05/28/2017 EMELY ESTES Ot Z79.82 HALF-WAY (CURRENT) USE OF ASPIRIN 05/28/2017 EMELY ESTES Ot Z82.49 FAMILY HX OF [place] HEART DIS AND OTH DI 05/28/2017 EMELY ESTES Ot Z87.09 PERSONAL HISTORY OF OTHER DISEASES OF 05/28/2017 EMELY ESTES Ot Z87.19 PERSONAL HISTORY OF OTHER DISEASES OF TH 05/31/2017 EMELY ESTES Ot K59.00 CONSTIPATION, UNSPECIFIED 06/02/2017 EMELY ESTES Ot E03.9 HYPOTHYROIDISM, UNSPECIFIED 06/02/2017 EMELY ESTES Ot F17.200 NICOTINE DEPENDENCE, UNSPECIFIED, UNCOMP 06/02/2017 EMELY ESTES Ot F41.9 ANXIETY DISORDER, UNSPECIFIED 06/02/2017 EMELY ESTES Ot I 10 ESSENTIAL (PRIMARY) HYPERTENSION 06/02/2017 EMELY ESTES Ot I25.10 ATHSCL HEART DISEASE OF [place] CORONARY 06/02/2017 EMELY ESTES Ot I48.91 UNSPECIFIED [...] TAP-WATER, INITIA 06/02/2017 EMELY ESTES Ot Y92.[address] [facility] 06/02/2017 EMELY ESTES Ot Z79.82 HALF-WAY (CURRENT) USE OF ASPIRIN 06/02/2017 EMELY ESTES Ot Z82.49 FAMILY HX OF I[place] HEART DIS AND OTH DI 06/02/2017 EMELY ESTES Ot Z87.09 PERSONAL HISTORY OF OTHER DISEASES OF TH 06/02/2017 EMELY ESTES Ot Z87.19 PERSONAL HISTORY OF OTHER DISEASES OF TH 06/04/2017 EMELY ESTES Ot E03.9 HYPOTHYROIDISM, UNSPECIFIED 06/04/2017 EMELY ESTES Ot F17.200 NICOTINE DEPENDENCE, UNSPECIFIED, UNCOMP 06/04/2017 EMELY ESTES Ot F41.9 ANXIETY DISORDER, UNSPECIFIED 06/04/2017 EMELY ESTES Ot I 10 ESSENTIAL (PRIMARY) HYPERTENSION 06/04/2017 EMELY ESTES Ot I25.10 ATHSCL HEART DISEASE OF [place] CORONARY 06/04/2017 EMELY ESTES Ot I48.91 UNSPECIFIED [...] WITH OTHER HOT TAP-WATER, INITIA 06/04/2017 EMELY ESTES Ot Y92.[address] IN [facility] NON[facility] (PRIVATE 06/04/2017 EMELY ESTES Ot Z79.82 HALF-WAY (CURRENT) USE OF ASPIRIN 06/04/2017 BONNY PA, EMELY L Ot Z82.49 FAMILY HX OF [place] HEART DIS AND OTH DI 06/04/2017 EMELY ESTES Ot Z87.09 PERSONAL HISTORY OF OTHER DISEASES OF TH 06/04/2017 EMELY ESTES Ot Z87.19 PERSONAL HISTORY OF OTHER DISEASES OF TH 06/07/2017 Ot 458.9 HYPO TENSION NOS 06/07/2017 Ot 440.20 ATH EROSCLEROSIS [place] ARTERIES EXTREMIT 06/07/2017 Ot 587 RENAL SCLEROSIS NOS 06/07/2017 Ot 722.4 CERV ICAL DISC DEGEN 06/07/2017 Ot 959.19 OTH INJURY OF OTHER SITES OF TRUNK 06/07/2017 Ot E000.8 OTH ER EXTERNAL CAUSE STATUS 06/07/2017 Ot E849.0 ACC IDENT IN HOME 06/07/2017 Ot E888.9 FAL L NOS 06/07/2017 Ot 253.6 NEUR OHYPOPHYSIS DIS NEC 06/07/2017 Ot 722.52 LUM B/LUMBOSAC DISC DEGEN 06/07/2017 Ot V54.17 AFT [employer] HEALING TRAUMATIC FX VERTEBRAE 06/07/2017 Ot 244.9 HYPO THYROIDISM NOS 06/07/2017 Ot 253.6 NEUR OHYPOPHYSIS DIS NEC 06/07/2017 Ot 253.6 NEUR OHYPOPHYSIS DIS NEC 06/07/2017 Ot 305.1 TOBA COMMUNICATIONS STATION MANAGER USE DISORDER 06/07/2017 Ot 401.9 HYPE RTENSION NOS 06/07/2017 Ot 428.0 SEVER[place] ESTIVE HEART FAILURE NOS 06/07/2017 Ot 433.30 MUL T BILTRAL ARTERY OCCLUSION WO CEREBRA 06/07/2017 Ot V76.12 OTH SCREEN MAMMO- MALIGN NEOPLASM OF [place] 06/07/2017 Ot 253.6 NEUR OHYPOPHYSIS DIS NEC 06/07/2017 Ot 305.1 TOBA COMMUNICATIONS STATION MANAGER USE DISORDER 06/07/2017 Ot 496 CHR AI RWAY OBSTRUCT NEC 06/07/2017 Ot 786.05 [place]IL[place] RTNESS OF BREATH 06/07/2017 Ot 427.31 ATR IAL FIBRILLATION 06/07/2017 Ot 780.79 OTH MALAISE FATIGUE 06/07/2017 Ot 785.1 PALP ITATIONS 06/07/[address] PAIN NOS 06/07/2017 Ot 786.05 WILFR[place] RTNESS OF BREATH 06/07/2017 Ot 786.2 COUGH 06/07/2017 Ot 427.31 ATR IAL FIBRILLATION 06/07/2017 Ot 780.79 OTH MALAISE FATIGUE 06/07/2017 Ot 785.1 PALP ITATIONS 06/07/[address] PAIN NEC 06/07/2017 LELE HUGHES MD Ot 305. 1 TOBACCO USE DISORDER 06/07/2017 LELE HUGHES MD Ot 403. 90 HYPTNSV CHR KID DIS, UNSPEC, W CHR KD ST 06/07/2017 LELE HUGHES MD Ot 496 CHR AIRWAY OBSTRUCT NEC 06/07/2017 LELE HUGHES MD Ot 585. 9 CHRONIC KIDNEY DISEASE, UNSPECIFIED 06/07/2017 LELE HUGHES MD Ot 721. 3 LUMBOSACRAL SPONDYLOSIS 06/07/2017 LELE HUGHES MD Ot 722. 4 CERVICAL DISC DEGEN 06/07/2017 LELE HUGHES MD Ot 722. 52 LUMB/LUMBOSAC DISC DEGEN 06/07/2017 LELE HUGHES MD Ot 729. 1 MYALGIA AND MYOSITIS NOS 06/07/2017 LELE HUGHES MD Ot 785. 1 PALPITATIONS 06/07/2017 LELE HUGHES MD Ot V58. 69 OTH MED,LT,CURRENT USE 06/07/2017 LELE HUGHES MD Ot 246. 9 DISORDER OF THYROID NOS 06/07/2017 LELE HUGHES MD Ot 300. 00 ANXIETY STATE NOS 06/07/2017 LELE HUGHES MD Ot 305. 1 TOBACCO USE DISORDER 06/07/2017 LELE HUGHES MD Ot 477. 9 ALLERGIC RHINITIS NOS 06/07/2017 LELE HUGHES MD Ot 721. 3 LUMBOSACRAL SPONDYLOSIS 06/07/2017 LELE HUGHES MD Ot 722. 4 CERVICAL DISC DEGEN 06/07/2017 LELE HUGHES MD Ot 722. 52 LUMB/LUMBOSAC DISC DEGEN 06/07/2017 LELE HUGHES MD Ot 729. 1 MYALGIA AND MYOSITIS NOS 06/07/2017 LELE HUGHES MD Ot V58. 69 OTH MED,LT,CURRENT USE 06/07/2017 LELE HUGHES MD Ot 721. 3 LUMBOSACRAL SPONDYLOSIS 06/07/2017 LELE HUGHES MD Ot 722. 4 CERVICAL DISC DEGEN 06/07/2017 LELE HUGHES MD Ot 722. 52 LUMB/LUMBOSAC DISC DEGEN 06/07/2017 LELE HUGHES MD Ot 729. 1 MYALGIA AND MYOSITIS NOS 06/07/2017 LELE HUGHES MD, Ot V58. 69 OTH MED,LT,CURRENT USE 06/07/2017 LELE HUGHES MD Ot 721. 3 LUMBOSACRAL SPONDYLOSIS 06/07/2017 LELE HUGHES MD Ot 722. 4 CERVICAL DISC DEGEN 06/07/2017 LELE HUGHES MD, Ot 722. 52 LUMB/LUMBOSAC DISC DEGEN 06/07/2017 LELE HUGHES MD Ot 724. 6 DISORDERS OF SACRUM 06/07/2017 LELE HUGHES MD Ot 729. 1 MYALGIA AND MYOSITIS NOS 06/07/2017 LELE HUGHES MD, Ot V58. 69 OTH MED,LT,CURRENT USE 06/07/2017 SHAYY PEOPLES MD Ot V76.12 OTH SCREEN MAMMO-MALIGN NEOPLASM OF [place] 06/07/2017 LELE HUGHES MD Ot 721. 3 LUMBOSACRAL SPONDYLOSIS 06/07/2017 LELE HUGHES MD Ot 722. 4 CERVICAL DISC DEGEN 06/07/2017 LELE HUGHES MD Ot 722. 52 LUMB/LUMBOSAC DISC DEGEN 06/07/2017 LELE HUGHES MD Ot 724. 6 DISORDERS OF SACRUM 06/07/2017 LELE HUGHES MD Ot 729. 1 MYALGIA AND MYOSITIS NOS 06/07/2017 LELE HUGHES MD, Ot V58. 69 OTH MED,LT,CURRENT USE 06/07/2017 SHAYY PEOPLES MD Ot 253.6 NEUROHYPOPHYSIS DIS NEC 06/07/2017 SHAYY PEOPLES MD Ot 305.1 TOBACCO USE DISORDER 06/07/2017 SHAYY PEOPLES MD Ot 783.21 LOSS OF WEIGHT 06/07/2017 GAGAN LAU, RAYNA Ot V72.84 EXAM PRE-OPERATIVE NOS 06/07/2017 SHAYY PEOPLES MD Ot 789.30 ABDOMINAL/PELVIC SWELLING,MASS/LUMP UNSP 06/07/2017 SHAYY PEOPLES MD Ot 255.9 ADRENAL DISORDER N0S 06/07/2017 RICHELLE LAU, SHAYY Burnett Ot 789.30 ABDOMINAL/PELVIC SWELLING,MASS/LUMP UNSP 06/07/2017 LELE HUGHES MD Ot 338. 4 CHRONIC PAIN SYNDROME 06/07/2017 LELE HUGHES MD Ot 721. 3 LUMBOSACRAL SPONDYLOSIS 06/07/2017 LELE HUGHES MD Ot 722. 52 LUMB/LUMBOSAC DISC DEGEN 06/07/2017 LELE HUGHES MD Ot 729. 1 MYALGIA AND MYOSITIS NOS 06/07/2017 LELE HUGHES MD Ot V58. 69 OTH MED,LT,CURRENT USE 06/07/2017 OBINNA PRASAD MD Ot 921 .0 BLACK EYE NOS 06/07/2017 OBINNA PRASAD MD Ot 959.01 HEAD INJURY, NOS 06/07/2017 OBINNA PRASAD MD Ot E000.8 OTHER EXTERNAL CAUSE STATUS 06/07/2017 OBINNA PRASAD MD Ot E849.0 ACCIDENT IN HOME 06/07/2017 OBINNA PRASAD MD Ot E917.3 FURNIT W/O SUB FALL 06/07/2017 LELE HUGHES MD Ot 724. 02 SPINAL STENOSIS, LUMBAR REG, W/OUT NEURO 06/07/2017 LELE HUGHES MD Ot 733. 13 PATHOLOGIC FRACTURE, VERTEBRAE 06/07/2017 OBINNA PRASAD MD Ot 255 .9 ADRENAL DISORDER N0S 06/07/2017 OBINNA PRASAD MD Ot 244 .9 HYPOTHYROIDISM NOS 06/07/2017 OBINNA PRASAD MD Ot 401 .9 HYPERTENSION NOS 06/07/2017 JOVANA HULL MD Ot 388.70 OTALGIA NOS 06/07/2017 JOVANA HULL MD Ot 462 ACUTE PHARYNGITIS 06/07/2017 JOVANA HULL MD Ot 478 .5 VOCAL CORD DISEASE NEC 06/07/2017 OBINNA PRASAD MD Ot J18 .9 PNEUMONIA, UNSPECIFIED ORGANISM 06/07/2017 MERRITT VALENZUELA DO Ot D35.00 BENIGN NEOPLASM OF UNSPECIFIED ADRENAL G 06/07/2017 OBINNA PRASAD MD Ot R91 .8 OTHER NONSPECIFIC ABNORMAL FINDING OF SUSAN 06/07/2017 VERONICA LAU FACC, ALI FACP CCDS Ot D35.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 06/07/2017 VERONICA LAU FAC, ALI FACP CCDS Ot E87.1 HYPO-OSMOLALITY AND HYPONATREMIA 06/07/2017 VERONICA LAU FACC, ALI FACP CCDS Ot I10 ESSENTIAL (PRIMARY) HYPERTENSION 06/07/2017 VERONICA LAU FACC, ALI FACP CCDS Ot I48.0 PAROXYSMAL ATRIAL FIBRILLATION 06/07/2017 VERONICA LAU FACC, ALI FACP CCDS Ot I50.32 CHRONIC DIASTOLIC (CONGESTIVE) HEART FAROOQ 06/07/2017 VERONICA LAU FAC, ALI FACP CCDS Ot J43.8 OTHER EMPHYSEMA 06/07/2017 VERONICA LAU FAC, ALI FACP CCDS Ot Z72.0 TOBACCO USE 06/07/2017 NIVIA LAU, DIALLO S Ot J44.9 CHRONIC OBSTRUCTIVE PULMONARY DISEASE, U 06/07/2017 BLAKE LAU, ADINA R Ot R06.0 2 SHORTNESS OF BREATH 06/07/2017 NIVIA LAU, DIALLO S Ot J44.9 CHRONIC OBSTRUCTIVE PULMONARY DISEASE, U 06/13/2017 RONNY BENEDICT MD Ot T21.25XA BURN OF SECOND DEGREE OF BUTTOCK, INITIA 06/13/2017 RONNY BENEDICT MD Ot T24.212A BURN OF SECOND DEGREE OF LEFT THIGH, INI 06/13/2017 RONNY BENEDICT MD Ot T65.292A TOXIC EFFECT OF TOBACCO AND NICOTINE, SE 06/13/2017 RONNY BENEDICT MD Ot X12.XXXA CONTACT WITH OTHER HOT FLUIDS, INITIAL E 06/13/2017 RONNY BENEDICT MD Ot Y93.G 3 ACTIVITY, COOKING AND BAKING 06/15/2017 RONNY BENEDICT MD Ot T21.25XA BURN OF SECOND DEGREE OF BUTTOCK, INITIA 06/15/2017 RONNY BENEDICT MD Ot T24.212A BURN OF SECOND DEGREE OF LEFT THIGH, INI 06/15/2017 RONNY BENEDICT MD Ot T65.292A TOXIC EFFECT OF TOBACCO AND NICOTINE, SE 06/15/2017 RONNY BENEDICT MD Ot X12.XXXA CONTACT WITH OTHER HOT FLUIDS, INITIAL E 06/15/2017 RONNY BENEDICT MD Ot Y93.G 3 ACTIVITY, COOKING AND BAKING 06/29/2017 RONNY BENEDICT MD Ot T21.25XA BURN OF SECOND DEGREE OF BUTTOCK, INITIA 06/29/2017 RONNY BENEDICT MD, Ot T24.212A BURN OF SECOND DEGREE OF LEFT THIGH, INI 06/29/2017 RONNY BENEDICT MD, Ot T65.292A TOXIC EFFECT OF TOBACCO AND NICOTINE, SE 06/29/2017 RONNY BENEDICT MD Ot X12.XXXA CONTACT WITH OTHER HOT FLUIDS, INITIAL E 06/29/2017 RONNY BENEDICT MD Ot Y93.G 3 ACTIVITY, COOKING AND BAKING 07/06/2017 ECTOR DORSEY SAWMILL TALLY CLERK Ot T21.25XA BURN OF SECOND DEGREE OF BUTTOCK, INITIA 07/06/2017 ECTOR DORSEY SAWMILL TALLY CLERK Ot T24.212A BURN OF SECOND DEGREE OF LEFT THIGH, INI 07/06/2017 ECTOR DOSREY SAWMILL TALLY CLERK Ot T65.292A TOXIC EFFECT OF TOBACCO AND NICOTINE, SE 07/06/2017 ECTOR DORSEY SAWMILL TALLY CLERK Ot X12.XXXA CONTACT WITH OTHER HOT FLUIDS, INITIAL E 07/06/2017 ECTOR DORSEY APRN Ot Y93.G3 ACTIVITY, COOKING AND BAKING 07/11/2017 RONNY BENEDICT MD, Ot T21.25XA BURN OF SECOND DEGREE OF BUTTOCK, INITIA 07/11/2017 RONNY BENEDICT MD, Ot T24.212A BURN OF SECOND DEGREE OF LEFT THIGH, INI 07/11/2017 RONNY BENEDICT MD, Ot T65.292A TOXIC EFFECT OF TOBACCO AND NICOTINE, SE 07/11/2017 RONNY BENEDICT MD, Ot X12.XXXA CONTACT WITH OTHER HOT FLUIDS, INITIAL E 07/11/2017 RONNY BENEDICT MD, Ot Y93.G 3 ACTIVITY, COOKING AND BAKING 07/21/2017 OBINNA PRASAD MD Ot M81 .0 AGE-RELATED OSTEOPOROSIS W/O CURRENT PAT 07/21/2017 OBINNA PRASAD MD Ot Z12.31 ENCNTR SCREEN MAMMOGRAM FOR MALIGNANT NE 07/21/2017 OBINNA PRASAD MD Ot M81 .0 AGE-RELATED OSTEOPOROSIS W/O CURRENT PAT 07/21/2017 OBINNA PRASAD MD Ot Z12.31 ENCNTR SCREEN MAMMOGRAM FOR MALIGNANT NE 07/21/2017 OBINNA PRASAD MD Ot M81 .0 AGE-RELATED OSTEOPOROSIS W/O CURRENT PAT 07/21/2017 OBINNA PRASAD MD Ot Z12.31 ENCNTR SCREEN MAMMOGRAM FOR MALIGNANT NE 07/21/2017 ECTOR DORSEY APRN Ot T21.25XA BURN OF SECOND DEGREE OF BUTTOCK, INITIA 07/21/2017 ECTOR DORSEY SAWMILL TALLY CLERK Ot T24.212A BURN OF SECOND DEGREE OF LEFT THIGH, INI 07/21/2017 ECTOR DORSEY SAWMILL TALLY CLERK Ot T65.292A TOXIC EFFECT OF TOBACCO AND NICOTINE, SE 07/21/2017 ECTOR DORSEY SAWMILL TALLY CLERK Ot X12.XXXA CONTACT WITH OTHER HOT FLUIDS, INITIAL E 07/21/2017 ECTOR DORSEY APRN Ot Y93.G3 ACTIVITY, COOKING AND BAKING 07/22/2017 OBINNA PRASAD MD Ot Z12.31 ENCNTR SCREEN MAMMOGRAM FOR MALIGNANT NE 08/11/2017 OBINNA PRASAD MD Ot M81 .0 AGE-RELATED OSTEOPOROSIS W/O CURRENT PAT 08/11/2017 OBINNA PRASAD MD Ot Z12.31 ENCNTR SCREEN MAMMOGRAM FOR MALIGNANT NE 08/11/2017 OBINNA PRASAD MD Ot M81 .0 AGE-RELATED OSTEOPOROSIS W/O CURRENT PAT 08/11/2017 OBINNA PRASAD MD Ot Z12.31 ENCNTR SCREEN MAMMOGRAM FOR MALIGNANT NE 09/08/2017 JOVANA JOSEPH DO Ot M54.16 RADICULOPATHY, LUMBAR REGION 09/13/2017 JOVANA JOSEPH DO Ot M54.16 RADICULOPATHY, LUMBAR REGION 09/14/2017 BIANCA BAER MERRITT L Ot E27.8 OTHER SPECIFIED DISORDERS OF ADRENAL GLA 09/14/2017 BIANCA BAER MERRITT L Ot E55.9 VITAMIN D DEFICIENCY, UNSPECIFIED 09/14/2017 BIANCA BAER, MERRITT L Ot E87.1 HYPO-OSMOLALITY AND HYPONATREMIA 09/15/2017 JOVANA JOSEPH DO Ot M54.16 RADICULOPATHY, LUMBAR REGION 09/23/2017 BIANCA BAER MERRITT L Ot E27.8 OTHER SPECIFIED DISORDERS OF ADRENAL GLA 09/23/2017 BIANCA DO, MERRITT L Ot E55.9 VITAMIN D DEFICIENCY, UNSPECIFIED 09/23/2017 BIANCA BAER, MERRITT L Ot E87.1 HYPO-OSMOLALITY AND HYPONATREMIA 09/29/2017 OBINNA PRASAD MD Ot M81 .0 AGE-RELATED OSTEOPOROSIS W/O CURRENT PAT 09/29/2017 OBINNA PRASAD MD Ot Z12.31 ENCNTR SCREEN MAMMOGRAM FOR MALIGNANT NE 10/11/2017 OBINNA PRASAD MD Ot M81 .0 AGE-RELATED OSTEOPOROSIS W/O CURRENT PAT 10/11/2017 OBINNA PRASAD MD Ot Z12.31 ENCNTR SCREEN MAMMOGRAM FOR MALIGNANT NE 10/25/2017 Ot 427.31 ATR IAL FIBRILLATION 10/25/2017 Ot 780.79 OTH MALAISE FATIGUE 10/25/2017 Ot 785.1 PALP ITATIONS 10/25/[address] PAIN NOS 02/23/2018 Ot 458.9 HYPO TENSION NOS 02/23/2018 Ot 253.6 NEUR OHYPOPHYSIS DIS NEC 02/23/2018 Ot 305.1 TOBA COMMUNICATIONS STATION MANAGER USE DISORDER 02/23/2018 Ot 401.9 HYPE RTENSION NOS 02/23/2018 Ot 428.0 SEVERINO ESTIVE HEART FAILURE NOS 02/23/2018 Ot 433.30 MUL T BILTRAL ARTERY OCCLUSION WO CEREBRA 02/23/2018 Ot V76.12 OTH SCREEN MAMMO- MALIGN NEOPLASM OF [place] 02/23/2018 Ot 253.6 NEUR OHYPOPHYSIS DIS NEC 02/23/2018 Ot 305.1 TOBA COMMUNICATIONS STATION MANAGER USE DISORDER 02/23/2018 Ot 496 CHR AI RWAY OBSTRUCT NEC 02/23/2018 Ot 786.05 [place] RTNESS OF BREATH 02/23/2018 Ot 427.31 ATR IAL FIBRILLATION 02/23/2018 Ot 780.79 OTH MALAISE FATIGUE 02/23/2018 Ot 785.1 PALP ITATIONS 02/23/[address] PAIN NOS 02/23/2018 Ot 786.05 [place] RTNESS OF BREATH 02/23/2018 Ot 786.2 COUGH 02/23/2018 Ot 427.31 ATR IAL FIBRILLATION 02/23/2018 Ot 780.79 OTH MALAISE FATIGUE 02/23/2018 Ot 785.1 PALP ITATIONS 02/23/[address] PAIN NEC 02/23/2018 LELE HUGHES MD Ot 305. 1 TOBACCO USE DISORDER 02/23/2018 LELE HUGHES MD Ot 403. 90 HYPTNSV CHR KID DIS, UNSPEC, W CHR KD ST 02/23/2018 LELE HUGHES MD Ot 496 CHR AIRWAY OBSTRUCT NEC 02/23/2018 LELE HUGHES MD Ot 585. 9 CHRONIC KIDNEY DISEASE, UNSPECIFIED 02/23/2018 LELE HUGHES MD Ot 721. 3 LUMBOSACRAL SPONDYLOSIS 02/23/2018 LELE HUGHES MD Ot 722. 4 CERVICAL DISC DEGEN 02/23/2018 LELE HUGHES MD Ot 722. 52 LUMB/LUMBOSAC DISC DEGEN 02/23/2018 LELE HUGHES MD Ot 729. 1 MYALGIA AND MYOSITIS NOS 02/23/2018 LELE HUGHES MD Ot 785. 1 PALPITATIONS 02/23/2018 LELE HUGHES MD Ot V58. 69 OTH MED,LT,CURRENT USE 02/23/2018 LELE HUGHES MD Ot 246. 9 DISORDER OF THYROID NOS 02/23/2018 LELE HUGHES MD Ot 300. 00 ANXIETY STATE NOS 02/23/2018 LELE HUGHES MD Ot 305. 1 TOBACCO USE DISORDER 02/23/2018 LELE HUGHES MD Ot 477. 9 ALLERGIC RHINITIS NOS 02/23/2018 LELE HUGHES MD Ot 721. 3 LUMBOSACRAL SPONDYLOSIS 02/23/2018 LELE HUGHES MD Ot 722. 4 CERVICAL DISC DEGEN 02/23/2018 LELE HUGHES MD Ot 722. 52 LUMB/LUMBOSAC DISC DEGEN 02/23/2018 LELE HUGHES MD Ot 729. 1 MYALGIA AND MYOSITIS NOS 02/23/2018 LELE HUGHES MD Ot V58. 69 OTH MED,LT,CURRENT USE 02/23/2018 LELE HUGHES MD Ot 721. 3 LUMBOSACRAL SPONDYLOSIS 02/23/2018 LELE HUGHES MD Ot 722. 4 CERVICAL DISC DEGEN 02/23/2018 LELE HUGHES MD Ot 722. 52 LUMB/LUMBOSAC DISC DEGEN 02/23/2018 LELE HUGHES MD Ot 729. 1 MYALGIA AND MYOSITIS NOS 02/23/2018 LELE HUGHES MD Ot V58. 69 OTH MED,LT,CURRENT USE 02/23/2018 LELE HUGHES MD Ot 721. 3 LUMBOSACRAL SPONDYLOSIS 02/23/2018 LELE HUGHES MD Ot 722. 4 CERVICAL DISC DEGEN 02/23/2018 LELE HUGHES MD Ot 722. 52 LUMB/LUMBOSAC DISC DEGEN 02/23/2018 LELE HUGHES MD Ot 724. 6 DISORDERS OF SACRUM 02/23/2018 LELE HUGHES MD Ot 729. 1 MYALGIA AND MYOSITIS NOS 02/23/2018 LELE HUGHES MD Ot V58. 69 OTH MED,LT,CURRENT USE 02/23/2018 SHAYY PEOPLES MD Ot V76.12 OTH SCREEN MAMMO-MALIGN NEOPLASM OF [place] 02/23/2018 LELE HUGHES MD Ot 721. 3 LUMBOSACRAL SPONDYLOSIS 02/23/2018 LELE HUGHES MD Ot 722. 4 CERVICAL DISC DEGEN 02/23/2018 LELE HUGHES MD Ot 722. 52 LUMB/LUMBOSAC DISC DEGEN 02/23/2018 LELE HUGHES MD Ot 724. 6 DISORDERS OF SACRUM 02/23/2018 LELE HUGHES MD Ot 729. 1 MYALGIA AND MYOSITIS NOS 02/23/2018 LELE HUGHES MD Ot V58. 69 OTH MED,LT,CURRENT USE 02/23/2018 RICHELLE LAU, SHAYY Burnett Ot 253.6 NEUROHYPOPHYSIS DIS NEC 02/23/2018 RICHELLE LAU, SHAYY Burnett Ot 305.1 TOBACCO USE DISORDER 02/23/2018 RICHELLE LAU, SHAYY Burnett Ot 783.21 LOSS OF WEIGHT 02/23/2018 GAGAN LAU, RAYNA Ot V72.84 EXAM PRE-OPERATIVE NOS 02/23/2018 RICHELLE LAU, SHAYY Burnett Ot 789.30 ABDOMINAL/PELVIC SWELLING,MASS/LUMP UNSP 02/23/2018 RICHELLE LAU, SHAYY Burnett Ot 255.9 ADRENAL DISORDER N0S 02/23/2018 SHAYY PEOPLES MD Ot 789.30 ABDOMINAL/PELVIC SWELLING,MASS/LUMP UNSP 02/23/2018 LELE HUGHES MD Ot 338. 4 CHRONIC PAIN SYNDROME 02/23/2018 LELE HUGHES MD Ot 721. 3 LUMBOSACRAL SPONDYLOSIS 02/23/2018 LELE HUGHES MD Ot 722. 52 LUMB/LUMBOSAC DISC DEGEN 02/23/2018 LELE HUGHES MD Ot 729. 1 MYALGIA AND MYOSITIS NOS 02/23/2018 LELE HUGHES MD Ot V58. 69 OTH MED,LT,CURRENT USE 02/23/2018 OBINNA PRASAD MD Ot 921 .0 BLACK EYE NOS 02/23/2018 OBINNA PRASAD MD Ot 959.01 HEAD INJURY, NOS 02/23/2018 OBINNA PRASAD MD Ot E000.8 OTHER EXTERNAL CAUSE STATUS 02/23/2018 OBINNA PRASAD MD Ot E849.0 ACCIDENT IN HOME 02/23/2018 OBINNA PRASAD MD Ot E917.3 FURNIT W/O SUB FALL 02/23/2018 LELE HUGHES MD Ot 724. 02 SPINAL STENOSIS, LUMBAR REG, W/OUT NEURO 02/23/2018 LELE HUGHES MD Ot 733. 13 PATHOLOGIC FRACTURE, VERTEBRAE 02/23/2018 OBINNA PRASAD MD Ot 255 .9 ADRENAL DISORDER N0S 02/23/2018 OBINNA PRASAD MD Ot 244 .9 HYPOTHYROIDISM NOS 02/23/2018 OBINNA PRASAD MD Ot 401 .9 HYPERTENSION NOS 02/23/2018 JOVANA HULL MD Ot 388.70 OTALGIA NOS 02/23/2018 JOVANA HULL MD Ot 462 ACUTE PHARYNGITIS 02/23/2018 JOVANA HULL MD Ot 478 .5 VOCAL CORD DISEASE NEC 02/23/2018 OBINNA PRASAD MD Ot J18 .9 PNEUMONIA, UNSPECIFIED ORGANISM 02/23/2018 MERRITT VALENZUELA DO L Ot D35.00 BENIGN NEOPLASM OF UNSPECIFIED ADRENAL G 02/23/2018 OBINNA PRASAD MD Ot R91 .8 OTHER NONSPECIFIC ABNORMAL FINDING OF [place] 02/23/2018 VERONICA LAU FACKaren, ALI FACP CCDS Ot D35.02 BENIGN NEOPLASM [...] Ot J43.8 OTHER EMPHYSEMA 02/23/2018 VERONICA LAU FACC, ALI FACP CCDS Ot Z72.0 TOBACCO USE 02/23/2018 NIVIA LAU, DIALLO S Ot J44.9 CHRONIC OBSTRUCTIVE PULMONARY DISEASE, U 02/23/2018 BLAKE LAU, ADINA Mullins Ot R06.0 2 SHORTNESS OF BREATH 02/23/2018 NIVIA LAU, DIALLO S Ot J44.9 CHRONIC OBSTRUCTIVE PULMONARY DISEASE, U 02/23/2018 RONNY BENEDICT MD Ot T21.25XA BURN OF SECOND DEGREE OF BUTTOCK, INITIA 02/23/2018 RONNY BENEDICT MD, Ot T24.212A BURN OF SECOND DEGREE OF LEFT THIGH, INI 02/23/2018 RONNY BENEDICT MD, Ot T65.292A TOXIC EFFECT OF TOBACCO AND NICOTINE, SE 02/23/2018 RONNY BENEDICT MD Ot X12.XXXA CONTACT WITH OTHER HOT FLUIDS, INITIAL E 02/23/2018 RONNY BENEDICT MD Ot Y93.G 3 ACTIVITY, COOKING AND BAKING 02/23/2018 ECTOR DORSEY [...] Ot Y93.G3 ACTIVITY, COOKING AND BAKING 02/23/2018 OBINNA PRASAD MD Ot M81 .0 AGE-RELATED OSTEOPOROSIS W/O CURRENT PAT 02/23/2018 OBINNA PRASAD MD Ot Z12.31 ENCNTR SCREEN MAMMOGRAM FOR MALIGNANT NE 02/23/2018 OBINNA PRASAD MD Ot Z12.31 ENCNTR SCREEN MAMMOGRAM FOR MALIGNANT NE 02/23/2018 MERRITT VALENZUELA DO Ot E27.8 OTHER SPECIFIED DISORDERS OF ADRENAL GLA 02/23/2018 VALENZUELA DO, MERRITT L Ot E55.9 VITAMIN D DEFICIENCY, UNSPECIFIED 02/23/2018 VALENZUELA DO, MERRITT L Ot E87.1 HYPO-OSMOLALITY AND HYPONATREMIA 02/23/2018 Ot 458.9 HYPO TENSION NOS 02/23/2018 NIVIA LAU, DIALLO S Ot J44.9 CHRONIC OBSTRUCTIVE PULMONARY DISEASE, U 02/23/2018 GAGAN LAU, RAYNA Ot Z01.81 8 ENCOUNTER FOR OTHER PREPROCEDURAL EXAMIN 03/01/2018 Ot 458.9 HYPO TENSION NOS 03/01/2018 Ot 253.6 NEUR OHYPOPHYSIS DIS NEC 03/01/2018 Ot 305.1 TOBA COMMUNICATIONS STATION MANAGER USE DISORDER 03/01/2018 Ot 401.9 HYPE RTENSION NOS 03/01/2018 Ot 428.0 SEVERINO ESTIVE HEART FAILURE NOS 03/01/2018 Ot 433.30 MUL T BILTRAL ARTERY OCCLUSION WO CEREBRA 03/01/2018 Ot V76.12 OTH SCREEN MAMMO- MALIGN NEOPLASM OF [place] 03/01/2018 Ot 253.6 NEUR OHYPOPHYSIS DIS NEC 03/01/2018 Ot 305.1 TOBA COMMUNICATIONS STATION MANAGER USE DISORDER 03/01/2018 Ot 496 CHR AI RWAY OBSTRUCT NEC 03/01/2018 Ot 786.05 [place] RTNESS OF BREATH 03/01/2018 Ot 427.31 ATR IAL FIBRILLATION 03/01/2018 Ot 780.79 OTH MALAISE FATIGUE 03/01/2018 Ot 785.1 PALP ITATIONS 03/01/[address] PAIN NOS 03/01/2018 Ot 786.05 [place] RTNESS OF BREATH 03/01/2018 Ot 786.2 COUGH 03/01/2018 Ot 427.31 ATR IAL FIBRILLATION 03/01/2018 Ot 780.79 OTH MALAISE FATIGUE 03/01/2018 Ot 785.1 PALP ITATIONS 03/01/[address] PAIN NEC 03/01/2018 LELE HUGHES MD Ot 305. 1 TOBACCO USE DISORDER 03/01/2018 LELE HUGHES MD Ot 403. 90 HYPTNSV CHR KID DIS, UNSPEC, W CHR KD ST 03/01/2018 LELE HUGHES MD Ot 496 CHR AIRWAY OBSTRUCT NEC 03/01/2018 LELE HUGHES MD Ot 585. 9 CHRONIC KIDNEY DISEASE, UNSPECIFIED 03/01/2018 LELE HUGHES MD Ot 721. 3 LUMBOSACRAL SPONDYLOSIS 03/01/2018 LELE HUGHES MD Ot 722. 4 CERVICAL DISC DEGEN 03/01/2018 LELE HUGHES MD Ot 722. 52 LUMB/LUMBOSAC DISC DEGEN 03/01/2018 LELE HUGHES MD Ot 729. 1 MYALGIA AND MYOSITIS NOS 03/01/2018 LELE HUGHES MD Ot 785. 1 PALPITATIONS 03/01/2018 LELE HUGHES MD Ot V58. 69 OTH MED,LT,CURRENT USE 03/01/2018 LELE HUGHES MD Ot 246. 9 DISORDER OF THYROID NOS 03/01/2018 LELE HUGHES MD Ot 300. 00 ANXIETY STATE NOS 03/01/2018 LELE HUGHES MD Ot 305. 1 TOBACCO USE DISORDER 03/01/2018 LELE HUGHES MD Ot 477. 9 ALLERGIC RHINITIS NOS 03/01/2018 LELE HUGHES MD Ot 721. 3 LUMBOSACRAL SPONDYLOSIS 03/01/2018 LELE HUGHES MD Ot 722. 4 CERVICAL DISC DEGEN 03/01/2018 LELE HUGHES MD Ot 722. 52 LUMB/LUMBOSAC DISC DEGEN 03/01/2018 LELE HUGHES MD Ot 729. 1 MYALGIA AND MYOSITIS NOS 03/01/2018 LELE HUGHES MD Ot V58. 69 OTH MED,LT,CURRENT USE 03/01/2018 LELE HUGHES MD Ot 721. 3 LUMBOSACRAL SPONDYLOSIS 03/01/2018 LELE HUGHES MD Ot 722. 4 CERVICAL DISC DEGEN 03/01/2018 LELE HUGHES MD Ot 722. 52 LUMB/LUMBOSAC DISC DEGEN 03/01/2018 LELE HUGHES MD Ot 729. 1 MYALGIA AND MYOSITIS NOS 03/01/2018 LELE HUGHES MD Ot V58. 69 OTH MED,LT,CURRENT USE 03/01/2018 LELE HUGHES MD Ot 721. 3 LUMBOSACRAL SPONDYLOSIS 03/01/2018 LELE HUGHES MD Ot 722. 4 CERVICAL DISC DEGEN 03/01/2018 LELE HUGHES MD Ot 722. 52 LUMB/LUMBOSAC DISC DEGEN 03/01/2018 LELE HUGHES MD Ot 724. 6 DISORDERS OF SACRUM 03/01/2018 LELE HUGHES MD Ot 729. 1 MYALGIA AND MYOSITIS NOS 03/01/2018 LELE HUGHES MD Ot V58. 69 OTH MED,LT,CURRENT USE 03/01/2018 SHAYY PEOPLES MD Ot V76.12 OTH SCREEN MAMMO-MALIGN NEOPLASM OF [place] 03/01/2018 LELE HUGHES MD Ot 721. 3 LUMBOSACRAL SPONDYLOSIS 03/01/2018 LELE HUGHES MD Ot 722. 4 CERVICAL DISC DEGEN 03/01/2018 LELE HUGHES MD Ot 722. 52 LUMB/LUMBOSAC DISC DEGEN 03/01/2018 LELE HUGHES MD Ot 724. 6 DISORDERS OF SACRUM 03/01/2018 LELE HUGHES MD Ot 729. 1 MYALGIA AND MYOSITIS NOS 03/01/2018 LELE HUGHES MD, Ot V58. 69 OTH MED,LT,CURRENT USE 03/01/2018 SHAYY PEOPLES MD Ot 253.6 NEUROHYPOPHYSIS DIS NEC 03/01/2018 SHAYY PEOPLES MD Ot 305.1 TOBACCO USE DISORDER 03/01/2018 RICHELLE LAU, SHAYY Burnett Ot 783.21 LOSS OF WEIGHT 03/01/2018 GAGAN LAU, ANGELINEDEEPA Ot V72.84 EXAM PRE-OPERATIVE NOS 03/01/2018 SHAYY PEOPLES MD Ot 789.30 ABDOMINAL/PELVIC SWELLING,MASS/LUMP UNSP 03/01/2018 SHAYY PEOPLES MD Ot 255.9 ADRENAL DISORDER N0S 03/01/2018 SHAYY PEOPLES MD Ot 789.30 ABDOMINAL/PELVIC SWELLING,MASS/LUMP UNSP 03/01/2018 LELE HUGHES MD Ot 338. 4 CHRONIC PAIN SYNDROME 03/01/2018 LELE HUGHES MD Ot 721. 3 LUMBOSACRAL SPONDYLOSIS 03/01/2018 LELE HUGHES MD Ot 722. 52 LUMB/LUMBOSAC DISC DEGEN 03/01/2018 LELE HUGHES MD Ot 729. 1 MYALGIA AND MYOSITIS NOS 03/01/2018 LELE HUGHES MD Ot V58. 69 OTH MED,LT,CURRENT USE 03/01/2018 OBINNA PRASAD MD Ot 921 .0 BLACK EYE NOS 03/01/2018 OBINNA PRASAD MD Ot 959.01 HEAD INJURY, NOS 03/01/2018 OBINNA PRASAD MD Ot E000.8 OTHER EXTERNAL CAUSE STATUS 03/01/2018 OBINNA PRASAD MD Ot E849.0 ACCIDENT IN HOME 03/01/2018 OBINNA PRASAD MD Ot E917.3 FURNIT W/O SUB FALL 03/01/2018 LELE HUGHES MD Ot 724. 02 SPINAL STENOSIS, LUMBAR REG, W/OUT NEURO 03/01/2018 LELE HUGHES MD Ot 733. 13 PATHOLOGIC FRACTURE, VERTEBRAE 03/01/2018 OBINNA PRASAD MD Ot 255 .9 ADRENAL DISORDER N0S 03/01/2018 OBINNA PRASAD MD Ot 244 .9 HYPOTHYROIDISM NOS 03/01/2018 OBINNA PRASAD MD Ot 401 .9 HYPERTENSION NOS 03/01/2018 JOVANA HULL MD Ot 388.70 OTALGIA NOS 03/01/2018 JOVANA HULL MD P Ot 462 ACUTE PHARYNGITIS 03/01/2018 JOVANA HULL MD Ot 478 .5 VOCAL CORD DISEASE NEC 03/01/2018 OBINNA PRASAD MD Ot J18 .9 PNEUMONIA, UNSPECIFIED ORGANISM 03/01/2018 MERRITT VALENZUELA DO Ot D35.00 BENIGN NEOPLASM OF UNSPECIFIED ADRENAL G 03/01/2018 OBINNA PRASAD MD Ot R91 .8 OTHER NONSPECIFIC ABNORMAL FINDING OF [place] 03/01/2018 VERONICA LAU FACC, TERRY FACP CCDS Ot D35.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 03/01/2018 VERONICA LAU FACC, TERRY FACP CCDS Ot E87.1 HYPO-OSMOLALITY AND HYPONATREMIA 03/01/2018 VERONICA LAU FACC, TERRY FACP CCDS Ot I10 ESSENTIAL (PRIMARY) HYPERTENSION 03/01/2018 VERONICA LAU FACC, TERRY FACP CCDS Ot I48.0 PAROXYSMAL ATRIAL FIBRILLATION 03/01/2018 VERONICA LAU FACC, TERRY MARIEP CCDS Ot I50.32 CHRONIC DIASTOLIC (CONGESTIVE) HEART FAROOQ 03/01/2018 TERRY MARTIN MD, FACC FACP CCDS Ot J43.8 OTHER EMPHYSEMA 03/01/2018 VERONICA MD FACC, ALI FACP CCDS Ot Z72.0 TOBACCO USE 03/01/2018 NIVIA LAU, DIALLO S Ot J44.9 CHRONIC OBSTRUCTIVE PULMONARY DISEASE, U 03/01/2018 ADINA LOZANO MD Ot R06.0 2 SHORTNESS OF BREATH 03/01/2018 NIVIA LAU, DIALLO S Ot J44.9 [...] INITIAL E 03/01/2018 RONNY BENEDICT MD Ot Y93.G 3 ACTIVITY, COOKING AND BAKING 03/01/2018 ECTOR DORSEY [...] ACTIVITY, COOKING AND BAKING 03/01/2018 OBINNA PRASAD MD Ot M81 .0 AGE-RELATED OSTEOPOROSIS W/O CURRENT PAT 03/01/2018 OBINNA PRASAD MD Ot Z12.31 ENCNTR SCREEN MAMMOGRAM FOR MALIGNANT NE 03/01/2018 OBINNA PRASAD MD Ot Z12.31 ENCNTR SCREEN MAMMOGRAM FOR MALIGNANT NE 03/01/2018 MERRITT VALENZUELA DO Ot E27.8 OTHER SPECIFIED DISORDERS OF ADRENAL GLA 03/01/2018 MERRITT VALENZUELA DO Ot E55.9 VITAMIN D DEFICIENCY, UNSPECIFIED 03/01/2018 MERRITT VALENZUELA DO Ot E87.1 HYPO-OSMOLALITY AND HYPONATREMIA 03/01/2018 RAYNA FARAH MD Ot D12.5 BENIGN NEOPLASM OF SIGMOID COLON 03/01/2018 RAYNA FARAH MD Ot I11.0 HYPERTENSIVE HEART DISEASE WITH HEART FA 03/01/2018 RAYNA FARAH MD, Ot I25.10 ATHSCL HEART DISEASE OF [place] CORONARY 03/01/2018 RAYNA FARAH MD Ot I48.91 UNSPECIFIED ATRIAL FIBRILLATION 03/01/2018 RAYNA FARAH MD Ot I50.9 HEART FAILURE, UNSPECIFIED 03/01/2018 RAYNA FARAH MD, Ot J43.9 EMPHYSEMA, UNSPECIFIED 03/01/2018 RAYNA FARAH MD Ot K21.0 GASTRO-ESOPHAGEAL REFLUX DISEASE WITH ES 03/01/2018 RAYNA FARAH MD Ot K29.50 UNSPECIFIED CHRONIC GASTRITIS WITHOUT BL 03/01/2018 RAYNA FARAH MD, Ot K44.9 DIAPHRAGMATIC HERNIA WITHOUT OBSTRUCTION 03/01/2018 RAYNA FARAH MD Ot K64.1 SECOND DEGREE HEMORRHOIDS 03/01/2018 RAYNA FARAH MD, Ot R19.5 OTHER FECAL ABNORMALITIES 03/01/2018 RAYNA FARAH MD Ot Z79.01 SPECIMEN BOSS (CURRENT) USE OF ANTICOAGULANT 03/01/2018 RAYNA FARAH MD Ot Z79.89 9 OTHER HALF-WAY (CURRENT) DRUG THERAPY 03/01/2018 RAYNA FARAH MD, Ot 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 STATUS 03/07/2018 RAYNA FARAH MD Ot D12.5 BENIGN NEOPLASM OF SIGMOID COLON 03/07/2018 RAYNA FARAH MD Ot I11.0 HYPERTENSIVE HEART DISEASE WITH HEART FA 03/07/2018 RAYNA FARAH MD, Ot I25.10 ATHSCL HEART DISEASE OF [place] CORONARY 03/07/2018 RAYNA FARAH MD Ot I48.91 UNSPECIFIED ATRIAL FIBRILLATION 03/07/2018 RAYNA FARAH MD Ot I50.9 HEART FAILURE, UNSPECIFIED 03/07/2018 RAYNA FARAH MD, Ot J43.9 EMPHYSEMA, UNSPECIFIED 03/07/2018 RAYNA FARAH MD Ot K21.0 GASTRO-ESOPHAGEAL REFLUX DISEASE WITH ES 03/07/2018 RAYNA FARAH MD Ot K29.50 UNSPECIFIED CHRONIC GASTRITIS WITHOUT BL 03/07/2018 KIDO MD, TAKAAKI Ot K44.9 DIAPHRAGMATIC HERNIA WITHOUT OBSTRUCTION 03/07/2018 RAYNA FARAH MD, Ot K64.1 SECOND DEGREE HEMORRHOIDS 03/07/2018 RAYNA FARAH MD, Ot R19.5 OTHER FECAL ABNORMALITIES 03/07/2018 RAYNA FARAH MD, Ot Z79.01 HALF-WAY (CURRENT) USE OF ANTICOAGULANT 03/07/2018 RAYNA FARAH MD, Ot Z79.89 9 OTHER SPECIMEN BOSS (CURRENT) DRUG THERAPY 03/07/2018 RAYNA FARAH MD, Ot 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 STATUS 03/09/2018 RAYNA FARAH MD, Ot D12.5 BENIGN NEOPLASM OF SIGMOID COLON 03/09/2018 RAYNA FARAH MD, Ot I11.0 HYPERTENSIVE HEART DISEASE WITH HEART FA 03/09/2018 RAYNA FARAH MD, Ot I25.10 ATHSCL HEART DISEASE OF [place] CORONARY 03/09/2018 RAYNA FARAH MD, Ot I48.91 UNSPECIFIED ATRIAL FIBRILLATION 03/09/2018 RAYNA FARAH MD, Ot I50.9 HEART FAILURE, UNSPECIFIED 03/09/2018 RAYNA FARAH MD, Ot J43.9 EMPHYSEMA, UNSPECIFIED 03/09/2018 RAYNA FARAH MD, Ot K21.0 GASTRO-ESOPHAGEAL REFLUX DISEASE WITH ES 03/09/2018 RAYNA FARAH MD, Ot K29.50 UNSPECIFIED CHRONIC GASTRITIS WITHOUT BL 03/09/2018 RAYNA FARAH MD, Ot K44.9 DIAPHRAGMATIC HERNIA WITHOUT OBSTRUCTION 03/09/2018 RAYNA FARAH MD, Ot K64.1 SECOND DEGREE HEMORRHOIDS 03/09/2018 RAYNA FARAH MD, Ot R19.5 OTHER FECAL ABNORMALITIES 03/09/2018 RAYNA FARAH MD, Ot Z79.01 HALF-WAY (CURRENT) USE OF ANTICOAGULANT 03/09/2018 RAYNA FARAH MD, Ot Z79.89 9 OTHER HALF-WAY (CURRENT) DRUG THERAPY 03/09/2018 RAYNA FARAH MD, Ot 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 STATUS 06/10/2018 JOVANA HULL MD, Ot I65.22 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 06/10/2018 JOVANA HULL MD, Ot J38 .7 OTHER DISEASES OF [place] 06/10/2018 JOVANA HULL MD, Ot R59 .0 LOCALIZED ENLARGED LYMPH NODES 06/21/2018 JOVANA HULL MD, Ot I65.22 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 06/21/2018 JOVANA HULL MD Ot J38 .7 OTHER DISEASES OF [place] 06/21/2018 JOVANA HULL MD Ot R59 .0 LOCALIZED ENLARGED LYMPH NODES 06/26/2018 VERONICA LAU FAC, ALI FACP CCDS Ot I11.9 HYPERTENSIVE HEART DISEASE WITHOUT HEART 06/26/2018 VERONICA LAU FACC, ALI FACP CCDS Ot I25.10 ATHSCL HEART DISEASE OF [place] CORONARY 06/26/2018 VERONICA LAU FACC, ALI FACP CCDS Ot I48.0 PAROXYSMAL ATRIAL FIBRILLATION 06/28/2018 VERONICA LAU FACC, ALI FACP CCDS Ot I11.9 HYPERTENSIVE HEART DISEASE WITHOUT HEART 06/28/2018 VERONICA LAU FACC, ALI FACP CCDS Ot I25.10 ATHSCL HEART DISEASE OF [place] CORONARY 06/28/2018 VERONICA LAU FACKaren, ALI FACP CCDS Ot I48.0 PAROXYSMAL ATRIAL FIBRILLATION 06/28/2018 Ot 458.9 HYPO TENSION NOS 06/28/2018 DIALLO GONZÁLES MD Ot J44.9 CHRONIC OBSTRUCTIVE PULMONARY DISEASE, U 06/28/2018 JOVANA HULL MD Ot J38 .7 OTHER DISEASES OF [place] 06/28/2018 JOVANA HULL MD Ot Z01.810 ENCOUNTER FOR PREPROCEDURAL CARDIOVASCUL 06/28/2018 JOVANA HULL MD Ot Z01.811 ENCOUNTER FOR PREPROCEDURAL RESPIRATORY 06/28/2018 JOVANA HULL MD Ot Z11 .2 ENCOUNTER FOR SCREENING FOR OTHER BACTER 06/29/2018 JOVANA HULL MD Ot C32 .1 MALIGNANT NEOPLASM OF SUPRAGLOTTIS 06/29/2018 JOVANA HULL MD Ot F17.210 NICOTINE DEPENDENCE, CIGARETTES, UNCOMPL 06/29/2018 JOVANA HULL MD Ot I10 ESSENTIAL (PRIMARY) HYPERTENSION 06/29/2018 JOVANA HULL MD Ot I25.10 ATHSCL HEART DISEASE OF [place] CORONARY 06/29/2018 JOVANA HULL MD Ot I48.91 UNSPECIFIED ATRIAL FIBRILLATION 06/29/2018 JOVANA HULL MD, Ot J44 .9 CHRONIC OBSTRUCTIVE PULMONARY DISEASE, U 06/29/2018 JOVANA HULL MD Ot 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 06/29/2018 JOVANA HULL MD Ot Z79.01 SPECIMEN BOSS (CURRENT) USE OF ANTICOAGULANT 06/29/2018 JOVANA HULL MD Ot Z79.82 SPECIMEN BOSS (CURRENT) USE OF ASPIRIN 06/29/2018 JOVANA HULL MD Ot Z79.899 OTHER SPECIMEN BOSS (CURRENT) DRUG THERAPY 07/03/2018 JOVANA HULL MD Ot J38 .7 OTHER DISEASES OF [place] 07/03/2018 JOVANA HULL MD Ot Z01.810 ENCOUNTER FOR PREPROCEDURAL CARDIOVASCUL 07/03/2018 JOVANA HULL MD Ot Z01.811 ENCOUNTER FOR PREPROCEDURAL RESPIRATORY 07/03/2018 JOVANA HULL MD Ot Z11 .2 ENCOUNTER FOR SCREENING FOR OTHER BACTER 07/04/2018 JOVANA UHLL MD Ot C32 .1 MALIGNANT NEOPLASM OF SUPRAGLOTTIS 07/04/2018 JOVANA HULL MD Ot F17.210 NICOTINE DEPENDENCE, CIGARETTES, UNCOMPL 07/04/2018 JOVANA HULL MD Ot I10 ESSENTIAL (PRIMARY) HYPERTENSION 07/04/2018 JOVANA HULL MD Ot I25.10 ATHSCL HEART DISEASE OF [place] CORONARY 07/04/2018 JOVANA HULL MD Ot I48.91 UNSPECIFIED ATRIAL FIBRILLATION 07/04/2018 JOVANA HULL MD, Ot J44 .9 CHRONIC OBSTRUCTIVE PULMONARY DISEASE, U 07/04/2018 JOVANA HULL MD Ot 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 07/04/2018 JOVANA HULL MD Ot Z79.01 SPECIMEN BOSS (CURRENT) USE OF ANTICOAGULANT 07/04/2018 JOVANA HULL MD Ot Z79.82 SPECIMEN BOSS (CURRENT) USE OF ASPIRIN 07/04/2018 JOVANA HULL MD Ot Z79.899 OTHER HALF-WAY (CURRENT) DRUG THERAPY 07/06/2018 JOVANA HULL MD Ot C32 .1 MALIGNANT NEOPLASM OF SUPRAGLOTTIS 07/06/2018 JOVANA HULL MD Ot F17.210 NICOTINE DEPENDENCE, CIGARETTES, UNCOMPL 07/06/2018 JOVANA HULL MD Ot I10 ESSENTIAL (PRIMARY) HYPERTENSION 07/06/2018 JOVANA HULL MD Ot I25.10 ATHSCL HEART DISEASE OF [place] CORONARY 07/06/2018 JOVANA HULL MD Ot I48.91 UNSPECIFIED ATRIAL FIBRILLATION 07/06/2018 JOVANA HULL MD Ot J44 .9 CHRONIC OBSTRUCTIVE PULMONARY DISEASE, U 07/06/2018 JOVANA HULL MD Ot 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 07/06/2018 JOVANA HULL MD, Ot Z79.01 HALF-WAY (CURRENT) USE OF ANTICOAGULANT 07/06/2018 JOVANA HULL MD, Ot Z79.82 HALF-WAY (CURRENT) USE OF ASPIRIN 07/06/2018 JOVANA HULL MD, Ot Z79.899 OTHER HALF-WAY (CURRENT) DRUG THERAPY 07/26/2018 VERONICA LAU FAC, ALI FACP CCDS Ot I11.9 HYPERTENSIVE HEART DISEASE WITHOUT HEART 07/26/2018 VERONICA LAU FACC, ALI FACP CCDS Ot I25.10 ATHSCL HEART DISEASE OF [place] CORONARY 07/26/2018 VERONICA LAU FACC, ALI FACP CCDS Ot I48.0 PAROXYSMAL ATRIAL FIBRILLATION 07/26/2018 JENNIFER COBB MD, Ot C32.1 MALIGNANT NEOPLASM OF SUPRAGLOTTIS 07/28/2018 OBINNA PRASAD MD N Ot M81 .0 AGE-RELATED OSTEOPOROSIS W/O CURRENT PAT 07/31/2018 JOVANA HULL MD Ot C32 .1 MALIGNANT NEOPLASM OF SUPRAGLOTTIS 07/31/2018 JOVANA HULL MD Ot R94 .8 ABNORMAL RESULTS OF FUNCTION STUDIES OF 07/31/2018 OBINNA PRASAD MD N Ot M81 .0 AGE-RELATED OSTEOPOROSIS W/O CURRENT PAT 07/31/2018 OBINNA PRASAD MD Ot M81 .0 AGE-RELATED OSTEOPOROSIS W/O CURRENT PAT 08/08/[address] [facility], ALI FACP CCDS Ot I11.9 HYPERTENSIVE HEART DISEASE WITHOUT HEART 08/08/2018 VERONICA LAU FACC, ALI FACP CCDS Ot I25.10 ATHSCL HEART DISEASE OF [place] CORONARY 08/08/2018 VERONICA LAU FAC, ALI FACP CCDS Ot I48.0 PAROXYSMAL ATRIAL FIBRILLATION 08/11/2018 JOVANA HULL MD Ot C32 .1 MALIGNANT NEOPLASM OF SUPRAGLOTTIS 08/11/2018 JOVANA HULL MD Ot R94 .8 ABNORMAL RESULTS OF FUNCTION STUDIES OF 09/01/2018 JENNIFER COBB MD Ot C32.1 MALIGNANT NEOPLASM OF SUPRAGLOTTIS 10/05/2018 JENNIFER COBB MD Ot C32.1 MALIGNANT NEOPLASM OF SUPRAGLOTTIS 10/09/2018 JENNIFER COBB MD Ot C32.1 MALIGNANT NEOPLASM OF SUPRAGLOTTIS 10/09/2018 JENNIFER COBB MD Ot Z51.0 ENCOUNTER FOR ANTINEOPLASTIC RADIATION T 05/11/2019 Ot 458.9 HYPO TENSION NOS 05/11/2019 RICHELLE LAU, SHAYY Burnett Ot 253.6 NEUROHYPOPHYSIS DIS NEC 05/11/2019 RICHELLE LAU, SHAYY Burnett Ot 305.1 TOBACCO USE DISORDER 05/11/2019 RICHELEL LAU, SHAYY Burnett Ot 783.21 LOSS OF WEIGHT 05/11/2019 GAGAN LAU, RAYNA Ot V72.84 EXAM PRE-OPERATIVE NOS 05/11/2019 RICHELLE LAU, SHAYY Burnett Ot 789.30 ABDOMINAL/PELVIC SWELLING,MASS/LUMP UNSP 05/11/2019 RICHELLE LAU, SHAYY Burnett Ot 255.9 ADRENAL DISORDER N0S 05/11/2019 RICHELLE LAU, SHAYY Burnett Ot 789.30 ABDOMINAL/PELVIC SWELLING,MASS/LUMP UNSP 05/11/2019 LELE HUGHES MD Ot 338. 4 CHRONIC PAIN SYNDROME 05/11/2019 LELE HUGHES MD Ot 721. 3 LUMBOSACRAL SPONDYLOSIS 05/11/2019 LELE HUGHES MD Ot 722. 52 LUMB/LUMBOSAC DISC DEGEN 05/11/2019 LELE HUGHES MD Ot 729. 1 MYALGIA AND MYOSITIS NOS 05/11/2019 LELE HUGHES MD Ot V58. 69 OTH MED,LT,CURRENT USE 05/11/2019 OBINNA PRASAD MD Ot 921 .0 BLACK EYE NOS 05/11/2019 OBINNA PRASAD MD Ot 959.01 HEAD INJURY, NOS 05/11/2019 OBINNA PRASAD MD Ot E000.8 OTHER EXTERNAL CAUSE STATUS 05/11/2019 OBINNA PRASAD MD Ot E849.0 ACCIDENT IN HOME 05/11/2019 OBINNA PRASAD MD Ot E917.3 FURNIT W/O SUB FALL 05/11/2019 LELE HUGHES MD Ot 724. 02 SPINAL STENOSIS, LUMBAR REG, W/OUT NEURO 05/11/2019 LELE HUGHES MD Ot 733. 13 PATHOLOGIC FRACTURE, VERTEBRAE 05/11/2019 OBINNA PRASAD MD Ot 255 .9 ADRENAL DISORDER N0S 05/11/2019 OBINNA PRASAD MD Ot 244 .9 HYPOTHYROIDISM NOS 05/11/2019 OBINNA PRASAD MD Ot 401 .9 HYPERTENSION NOS 05/11/2019 JOVANA HULL MD Ot 388.70 OTALGIA NOS 05/11/2019 JOVANA HULL MD Ot 462 ACUTE PHARYNGITIS 05/11/2019 JOVANA HULL MD Ot 478 .5 VOCAL CORD DISEASE NEC 05/11/2019 OBINNA PRASAD MD Ot J18 .9 PNEUMONIA, UNSPECIFIED ORGANISM 05/11/2019 VALENZUELA DO, MERRITT L Ot D35.00 BENIGN NEOPLASM OF UNSPECIFIED ADRENAL G 05/11/2019 OBINNA PRASAD MD Ot R91 .8 OTHER NONSPECIFIC ABNORMAL FINDING OF [place]US[place] 05/11/2019 VERONICA LAU FAC, ALI FACP CCDS Ot D35.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 05/11/2019 VERONICA LAU FAC, ALI FACP CCDS Ot E87.1 HYPO-OSMOLALITY AND HYPONATREMIA 05/11/2019 VERONICA LAU FAC, ALI FACP CCDS Ot I10 ESSENTIAL (PRIMARY) HYPERTENSION 05/11/2019 VERONICA LAU FAC, ALI FACP CCDS Ot I48.0 PAROXYSMAL ATRIAL FIBRILLATION 05/11/2019 VERONICA LAU FAC, ALI FACP CCDS Ot I50.32 CHRONIC DIASTOLIC (CONGESTIVE) HEART FAROOQ 05/11/[address] [facility], ALI FACP CCDS Ot J43.8 OTHER EMPHYSEMA 05/11/[address] [facility], ALI FACP CCDS Ot Z72.0 TOBACCO USE 05/11/2019 DIALLO GONZÁLES MD S Ot J44.9 CHRONIC OBSTRUCTIVE PULMONARY DISEASE, U 05/11/2019 BLAKE LAU, ADINA Mullins Ot R06.0 2 SHORTNESS OF BREATH 05/11/2019 DIALLO GONZÁLES MD S Ot J44.9 CHRONIC OBSTRUCTIVE PULMONARY DISEASE, U 05/11/2019 RONNY BENEDICT MD Ot T21.25XA BURN OF SECOND DEGREE OF BUTTOCK, INITIA 05/11/2019 RONNY BENEDICT MD Ot T24.212A BURN OF SECOND DEGREE OF LEFT THIGH, INI 05/11/2019 RONNY BENEDICT MD Ot T65.292A TOXIC EFFECT OF TOBACCO AND NICOTINE, SE 05/11/2019 RONNY BENEDICT MD Ot X12.XXXA CONTACT WITH OTHER HOT FLUIDS, INITIAL E 05/11/2019 RONNY BENEDICT MD Ot Y93.G 3 ACTIVITY, COOKING AND BAKING 05/11/2019 ECTOR DORSEY APRN Ot T21.25XA BURN OF SECOND DEGREE OF BUTTOCK, INITIA 05/11/2019 ECTOR DORSEY APRN Ot T24.212A BURN OF SECOND DEGREE OF LEFT THIGH, INI 05/11/2019 ECTOR DORSEY APRN Ot T65.292A TOXIC EFFECT OF TOBACCO AND NICOTINE, SE 05/11/2019 ECTOR DORSEY APRN Ot X12.XXXA CONTACT WITH OTHER HOT FLUIDS, INITIAL E 05/11/2019 ECTOR DORSEY APRN Ot Y93.G3 ACTIVITY, COOKING AND BAKING 05/11/2019 OBINNA PRASAD MD, Ot M81 .0 AGE-RELATED OSTEOPOROSIS W/O CURRENT PAT 05/11/2019 OBINNA PRASAD MD, Ot Z12.31 ENCNTR SCREEN MAMMOGRAM FOR MALIGNANT NE 05/11/2019 OBINNA PRASAD MD, Ot Z12.31 ENCNTR SCREEN MAMMOGRAM FOR MALIGNANT NE 05/11/2019 MERRITT VALENZUELA DO Ot E27.8 OTHER SPECIFIED DISORDERS OF ADRENAL GLA 05/11/2019 MERRITT VALENZUELA DO Ot E55.9 VITAMIN D DEFICIENCY, UNSPECIFIED 05/11/2019 MERRITT VALENZUELA DO Ot E87.1 HYPO-OSMOLALITY AND HYPONATREMIA 05/11/2019 JOVANA HULL MD Ot I65.22 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 05/11/2019 JOVANA HULL MD Ot J38 .7 OTHER DISEASES OF LARYNX 05/11/2019 JOVANA HULL MD Ot R59 .0 LOCALIZED ENLARGED LYMPH NODES 05/11/[address] [facility], ALI FACP CCDS Ot I11.9 HYPERTENSIVE HEART DISEASE WITHOUT HEART 05/11/[address] [facility], ALI FACP CCDS Ot I25.10 ATHSCL HEART DISEASE OF [place] CORONARY 05/11/[address] [facility], ALI ANGELA CCDS Ot I48.0 PAROXYSMAL ATRIAL FIBRILLATION 05/11/2019 JOVANA HULL MD Ot C32 .1 MALIGNANT NEOPLASM OF SUPRAGLOTTIS 05/11/2019 JOVANA HULL MD Ot R94 .8 ABNORMAL RESULTS OF FUNCTION STUDIES OF 05/11/2019 REZA LAU, JENNIFER Rucker Ot C32.1 MALIGNANT NEOPLASM OF SUPRAGLOTTIS 05/18/2019 OBINNA PRASAD MD N Ot I65.23 OCCLUSION AND STENOSIS OF BILATERAL FREEMAN 05/18/2019 OBINNA PRASAD MD N Ot R13.13 DYSPHAGIA, PHARYNGEAL PHASE 05/18/2019 OBINNA PRASAD MD N Ot R22 .1 LOCALIZED SWELLING, MASS AND LUMP, NECK 05/22/2019 OBINNA PRASAD MD N Ot I65.23 OCCLUSION AND STENOSIS OF BILATERAL [place]RE[place] 05/22/2019 OBINNA PRASAD MD N Ot R13.13 DYSPHAGIA, PHARYNGEAL PHASE 05/22/2019 OBINNA PRASAD MD N Ot R22 .1 LOCALIZED SWELLING, MASS AND LUMP, NECK 07/04/2019 OBINNA PRASAD MD N Ot I65.23 OCCLUSION AND STENOSIS OF BILATERAL [place]RE[place] 07/04/2019 OBINNA PRASAD MD N Ot R13.13 DYSPHAGIA, PHARYNGEAL PHASE 07/04/2019 OBINNA PRASAD MD N Ot R22 .1 LOCALIZED SWELLING, MASS AND LUMP, NECK 07/04/2019 OBINNA PRASAD MD N Ot I65.23 OCCLUSION AND STENOSIS OF BILATERAL [place] 07/04/2019 OBINNA PRASAD MD N Ot R13.13 DYSPHAGIA, PHARYNGEAL PHASE 07/04/2019 OBINNA PRASAD MD Ot R22 .1 LOCALIZED SWELLING, MASS AND LUMP, NECK 07/04/2019 OBINNA PRASAD MD N Ot I65.23 OCCLUSION AND STENOSIS OF BILATERAL [place] 07/04/2019 OBINNA PRASAD MD N Ot R13.13 DYSPHAGIA, PHARYNGEAL PHASE 07/04/2019 OBINNA PRASAD MD N Ot R22 .1 LOCALIZED SWELLING, MASS AND LUMP, NECK 07/04/2019 OBINNA PRASAD MD N Ot I65.23 OCCLUSION AND STENOSIS OF BILATERAL [place]RE[place] 07/04/2019 OBINNA PRASAD MD N Ot R13.13 DYSPHAGIA, PHARYNGEAL PHASE 07/04/2019 OBINNA PRASAD MD N Ot R22 .1 LOCALIZED SWELLING, MASS AND LUMP, NECK 07/10/2019 VERONICA LAU [facility], ALI FACP CCDS Ot F17.210 NICOTINE DEPENDENCE, CIGARETTES, UNCOMPL 07/10/2019 VERONICA LAU F[facility], ALI FACP CCDS Ot F32.9 MAJOR DEPRESSIVE DISORDER, SINGLE EPISOD 07/10/2019 VERONICA MD FACC, ALI FACP CCDS Ot F41.9 ANXIETY DISORDER, UNSPECIFIED 07/10/2019 VERONICA LAU F[facility], ALI FACP CCDS Ot G89.29 OTHER CHRONIC PAIN 07/10/2019 VERONICA LAU [facility], ALI FACP CCDS Ot I11.0 HYPERTENSIVE HEART DISEASE WITH HEART FA 07/10/2019 VERONICA LAU F[facility], ALI FACP CCDS Ot I25.10 ATHSCL HEART DISEASE OF [place] CORONARY 07/10/2019 VERONICA LAU F[facility], ALI FACP CCDS Ot I48.0 PAROXYSMAL ATRIAL FIBRILLATION 07/10/2019 VERONICA LAU F[facility], ALI FACP CCDS Ot I50.9 HEART FAILURE, UNSPECIFIED 07/10/2019 VERONICA LAU [facility], ALI FACP CCDS Ot I73.9 PERIPHERAL VASCULAR DISEASE, UNSPECIFIED 07/10/2019 VERONICA LAU [facility], ALI FACP CCDS Ot J44.9 CHRONIC OBSTRUCTIVE PULMONARY DISEASE, U 07/10/2019 VERONICA LAU [facility], ALI FACP CCDS Ot K59.00 CONSTIPATION, UNSPECIFIED 07/10/2019 VERONICA LAU F[facility], ALI FACP CCDS Ot M19.90 UNSPECIFIED OSTEOARTHRITIS, UNSPECIFIED 07/10/2019 VERONICA LAU FACC, ALI FACP CCDS Ot N39.0 URINARY TRACT INFECTION, SITE NOT SPECIF 07/10/2019 VERONICA LAU FACC, TERRY FACP CCDS Ot Z79.01 SPECIMEN BOSS (CURRENT) USE OF ANTICOAGULANT 07/10/2019 VERONICA LAU FACC, TERRY FACP CCDS Ot Z79.82 HALF-WAY (CURRENT) USE OF ASPIRIN 07/10/2019 VERONICA LAU FACC, TERRY FACP CCDS Ot Z79.899 OTHER SPECIMEN BOSS (CURRENT) DRUG THERAPY 07/10/2019 VERONICA LAU F[facility], ALI FACP CCDS Ot Z82.49 FAMILY HX OF ISCHEM HEART DIS AND OTH DI 07/10/2019 VERONICA LAU FACC, TERRY FACP CCDS Ot Z83.3 FAMILY HISTORY OF DIABETES MELLITUS 07/10/2019 VERONICA LAU [facility], ALI FACP CCDS Ot Z88.2 ALLERGY STATUS TO SULFONAMIDES STATUS 07/13/2019 VERONICA LAU [facility], ALI FACP CCDS Ot F17.210 NICOTINE DEPENDENCE, CIGARETTES, UNCOMPL 07/13/2019 VERONICA LAU [facility], ALI FACP CCDS Ot F32.9 MAJOR DEPRESSIVE DISORDER, SINGLE EPISOD 07/13/2019 VERONICA LAU F[facility], ALI FACP CCDS Ot F41.9 ANXIETY DISORDER, UNSPECIFIED 07/13/2019 VERONICA LAU [facility], ALI FACP CCDS Ot G89.29 OTHER CHRONIC PAIN 07/13/2019 VERONICA LAU F[facility], ALI FACP CCDS Ot I11.0 HYPERTENSIVE HEART DISEASE WITH HEART FA 07/13/2019 VERONICA LAU F[facility], ALI FACP CCDS Ot I25.10 ATHSCL HEART DISEASE OF [place] CORONARY 07/13/2019 VERONICA LAU F[facility], ALI FACP CCDS Ot I48.0 PAROXYSMAL ATRIAL FIBRILLATION 07/13/2019 VERONICA LAU FACC, ALI FACP CCDS Ot I50.9 HEART FAILURE, UNSPECIFIED 07/13/2019 VERONICA LAU F[facility], ALI FACP CCDS Ot I73.9 PERIPHERAL VASCULAR DISEASE, UNSPECIFIED 07/13/2019 VERONICA LAU F[facility], ALI FACP CCDS Ot J44.9 CHRONIC OBSTRUCTIVE PULMONARY DISEASE, U 07/13/2019 VERONICA LAU [facility], ALI FACP CCDS Ot K59.00 CONSTIPATION, UNSPECIFIED 07/13/2019 VERONICA LAU F[facility], ALI FACP CCDS Ot M19.90 UNSPECIFIED OSTEOARTHRITIS, UNSPECIFIED 07/13/2019 VERONICA LAU FACC, ALI FACP CCDS Ot N39.0 URINARY TRACT INFECTION, SITE NOT SPECIF 07/13/2019 VERONICA LAU FACC, ALI FACP CCDS Ot Z79.01 SPECIMEN BOSS (CURRENT) USE OF ANTICOAGULANT 07/13/2019 VERONICA LAU FACC, TERRY FACP CCDS Ot Z79.82 HALF-WAY (CURRENT) USE OF ASPIRIN 07/13/2019 VERONICA LAU FACC, ALI FACP CCDS Ot Z79.899 OTHER HALF-WAY (CURRENT) DRUG THERAPY 07/13/2019 VERONICA LAU FACC, ALI FACP CCDS Ot Z82.49 FAMILY HX OF ISCHEM HEART DIS AND OTH DI 07/13/2019 VERONICA LAU FACC, TERRY FACP CCDS Ot Z83.3 FAMILY HISTORY OF DIABETES MELLITUS 07/13/2019 VERONICA LAU FACC, ALI FACP CCDS Ot Z88.2 ALLERGY STATUS TO SULFONAMIDES STATUS 07/17/2019 VERONICA LAU F[facility], ALI FACP CCDS Ot F17.210 NICOTINE DEPENDENCE, CIGARETTES, UNCOMPL 07/17/2019 VERONICA LAU FACC, ALI FACP CCDS Ot F32.9 MAJOR DEPRESSIVE DISORDER, SINGLE EPISOD 07/17/2019 VERONICA LAU FACC, ALI FACP CCDS Ot F41.9 ANXIETY DISORDER, UNSPECIFIED 07/17/2019 VERONICA LAU FACC, ALI FACP CCDS Ot G89.29 OTHER CHRONIC PAIN 07/17/2019 VERONICA LAU FACC, ALI FACP CCDS Ot I11.0 HYPERTENSIVE HEART DISEASE WITH HEART FA 07/17/2019 VERONICA LAU FACC, ALI FACP CCDS Ot I25.10 ATHSCL HEART DISEASE OF [place] CORONARY 07/17/2019 VERONICA LAU FACC, ALI FACP CCDS Ot I48.0 PAROXYSMAL ATRIAL FIBRILLATION 07/17/2019 VERONICA LAU FACC, ALI FACP CCDS Ot I50.9 HEART FAILURE, UNSPECIFIED 07/17/2019 VERONICA LAU F[facility], ALI FACP CCDS Ot I73.9 PERIPHERAL VASCULAR DISEASE, UNSPECIFIED 07/17/2019 VERONICA LAU FACC, ALI FACP CCDS Ot J44.9 CHRONIC OBSTRUCTIVE PULMONARY DISEASE, U 07/17/2019 VERONICA LAU FACC, ALI FACP CCDS Ot K59.00 CONSTIPATION, UNSPECIFIED 07/17/2019 VERONICA LAU FACC, ALI FACP CCDS Ot M19.90 UNSPECIFIED OSTEOARTHRITIS, UNSPECIFIED 07/17/2019 VERONICA LAU FACC, ALI FACP CCDS Ot N39.0 URINARY TRACT INFECTION, SITE NOT SPECIF 07/17/2019 VERONICA LAU FACC, ALI FACP CCDS Ot Z79.01 SPECIMEN BOSS (CURRENT) USE OF ANTICOAGULANT 07/17/2019 VERONICA LAU FACC, ALI FACP CCDS Ot Z79.82 HALF-WAY (CURRENT) USE OF ASPIRIN 07/17/2019 VERONICA LAU FACC, ALI FACP CCDS Ot Z79.899 OTHER SPECIMEN BOSS (CURRENT) DRUG THERAPY 07/17/2019 VERONICA LAU FACC, ALI FACP CCDS Ot Z82.49 FAMILY HX OF ISCHEM HEART DIS AND OTH DI 07/17/2019 VERONICA LAU FACC, ALI FACP CCDS Ot Z83.3 FAMILY HISTORY OF DIABETES MELLITUS 07/17/2019 VERONICA LAU F[facility], ALI FACP CCDS Ot Z88.2 ALLERGY STATUS TO SULFONAMIDES STATUS 07/26/2019 RAYNA FARAH MD, Ot Z01.81 8 ENCOUNTER FOR OTHER PREPROCEDURAL EXAMIN 07/27/2019 Ot 458.9 HYPO TENSION NOS 07/27/2019 NIVIA LAU, DIALLO Quinones Ot J44.9 CHRONIC OBSTRUCTIVE PULMONARY DISEASE, U 07/27/2019 REZA LAU, JENNIFER Rucker Ot C32.1 MALIGNANT NEOPLASM OF SUPRAGLOTTIS 07/27/2019 RAYNA FARAH MD, Ot D64.9 ANEMIA, UNSPECIFIED 07/27/2019 RAYNA FARAH MD, Ot E03.9 HYPOTHYROIDISM, UNSPECIFIED 07/27/2019 RAYNA FARAH MD, Ot I25.10 ATHSCL HEART DISEASE OF [place] CORONARY 07/27/2019 RAYNA FARAH MD, Ot I48.91 UNSPECIFIED ATRIAL FIBRILLATION 07/27/2019 RAYNA FARAH MD, Ot I50.9 HEART FAILURE, UNSPECIFIED 07/27/2019 RAYNA FARAH MD, Ot J43.9 EMPHYSEMA, UNSPECIFIED 07/27/2019 RAYNA FARAH MD, Ot J44.9 CHRONIC OBSTRUCTIVE PULMONARY DISEASE, U 07/27/2019 RAYNA FARAH MD Ot K21.0 GASTRO-ESOPHAGEAL REFLUX DISEASE WITH ES 07/27/2019 RAYNA FARAH MD Ot K29.50 UNSPECIFIED CHRONIC GASTRITIS WITHOUT BL 07/27/2019 RAYNA FARAH MD, Ot K44.9 DIAPHRAGMATIC HERNIA WITHOUT OBSTRUCTION 07/27/2019 RAYNA FARAH MD Ot K64.1 SECOND DEGREE HEMORRHOIDS 07/27/2019 RAYNA FARAH MD, Ot K64.8 OTHER HEMORRHOIDS 07/27/2019 RAYNA FARAH MD, Ot M19.90 UNSPECIFIED OSTEOARTHRITIS, UNSPECIFIED 07/27/2019 RAYNA FARAH MD, Ot Z85.09 PERSONAL HISTORY OF MALIGNANT NEOPLASM O 07/27/2019 RAYNA FARAH MD Ot Z88.6 ALLERGY STATUS TO ANALGESIC AGENT STATUS 07/27/2019 RAYNA FARAH MD, Ot Z88.8 ALLERGY STATUS TO OTH DRUG/MEDS/BIOL SUB 07/30/2019 RAYNA FARAH MD, Ot Z01.81 8 ENCOUNTER FOR OTHER PREPROCEDURAL EXAMIN 08/08/2019 RAYNA FARAH MD, Ot D64.9 ANEMIA, UNSPECIFIED 08/08/2019 KIDO MD, TAKAAKI Ot E03.9 HYPOTHYROIDISM, UNSPECIFIED 08/08/2019 RAYNA FARAH MD, Ot I25.10 ATHSCL HEART DISEASE OF [place] CORONARY 08/08/2019 RAYNA FARAH MD, Ot I48.91 UNSPECIFIED ATRIAL FIBRILLATION 08/08/2019 RAYNA FARAH MD, Ot I50.9 HEART FAILURE, UNSPECIFIED 08/08/2019 RAYNA FARAH MD, Ot J43.9 EMPHYSEMA, UNSPECIFIED 08/08/2019 RAYNA FARAH MD, Ot J44.9 CHRONIC OBSTRUCTIVE PULMONARY DISEASE, U 08/08/2019 RAYNA FARAH MD, Ot K21.0 GASTRO-ESOPHAGEAL REFLUX DISEASE WITH ES 08/08/2019 RAYNA FARAH MD, Ot K29.50 UNSPECIFIED CHRONIC GASTRITIS WITHOUT BL 08/08/2019 RAYNA FARAH MD, Ot K44.9 DIAPHRAGMATIC HERNIA WITHOUT OBSTRUCTION 08/08/2019 RAYNA FARAH MD, Ot K64.1 SECOND DEGREE HEMORRHOIDS 08/08/2019 RAYNA FARAH MD, Ot K64.8 OTHER HEMORRHOIDS 08/08/2019 RAYNA FARAH MD, Ot M19.90 UNSPECIFIED OSTEOARTHRITIS, UNSPECIFIED 08/08/2019 RAYNA FARAH MD, Ot Z85.09 PERSONAL HISTORY OF MALIGNANT NEOPLASM O 08/08/2019 RAYNA FARAH MD, Ot Z88.6 ALLERGY STATUS TO ANALGESIC AGENT STATUS 08/08/2019 RAYNA FARAH MD, Ot Z88.8 ALLERGY STATUS TO OTH DRUG/MEDS/BIOL SUB 09/18/2019 Ot 458.9 HYPO TENSION NOS 09/18/2019 SHAYY PEOPLES MD Ot 253.6 NEUROHYPOPHYSIS DIS NEC 09/18/2019 SHAYY PEOPLES MD Ot 305.1 TOBACCO USE DISORDER 09/18/2019 SHAYY PEOPLES MD Ot 783.21 LOSS OF WEIGHT 09/18/2019 RAYNA FARAH MD Ot V72.84 EXAM PRE-OPERATIVE NOS 09/18/2019 RICHELLE LAU, SHAYY Burnett Ot 789.30 ABDOMINAL/PELVIC SWELLING,MASS/LUMP UNSP 09/18/2019 SHAYY PEOPLES MD Ot 255.9 ADRENAL DISORDER N0S 09/18/2019 SHAYY PEOPLES MD Ot 789.30 ABDOMINAL/PELVIC SWELLING,MASS/LUMP UNSP 09/18/2019 LELE HUGHES MD Ot 338. 4 CHRONIC PAIN SYNDROME 09/18/2019 LELE HUGHES MD Ot 721. 3 LUMBOSACRAL SPONDYLOSIS 09/18/2019 LELE HUGHES MD Ot 722. 52 LUMB/LUMBOSAC DISC DEGEN 09/18/2019 LELE HUGHES MD Ot 729. 1 MYALGIA AND MYOSITIS NOS 09/18/2019 LELE HUGHES MD Ot V58. 69 OTH MED,LT,CURRENT USE 09/18/2019 OBINNA PRASAD MD Ot 921 .0 BLACK EYE NOS 09/18/2019 OBINNA PRASAD MD Ot 959.01 HEAD INJURY, NOS 09/18/2019 OBINNA PRASAD MD Ot E000.8 OTHER EXTERNAL CAUSE STATUS 09/18/2019 OBINNA PRASAD MD Ot E849.0 ACCIDENT IN HOME 09/18/2019 OBINNA PRASAD MD Ot E917.3 FURNIT W/O SUB FALL 09/18/2019 LELE HUGHES MD Ot 724. 02 SPINAL STENOSIS, LUMBAR REG, W/OUT NEURO 09/18/2019 LELE HUGHES MD Ot 733. 13 PATHOLOGIC FRACTURE, VERTEBRAE 09/18/2019 OBINNA PRASAD MD Ot 255 .9 ADRENAL DISORDER N0S 09/18/2019 OBINNA PRASAD MD Ot 244 .9 HYPOTHYROIDISM NOS 09/18/2019 OBINNA PRASAD MD Ot 401 .9 HYPERTENSION NOS 09/18/2019 JOVANA HULL MD Ot 388.70 OTALGIA NOS 09/18/2019 JOVANA HULL MD Ot 462 ACUTE PHARYNGITIS 09/18/2019 JOVANA HULL MD Ot 478 .5 VOCAL CORD DISEASE NEC 09/18/2019 OBINNA PRASAD MD Ot J18 .9 PNEUMONIA, UNSPECIFIED ORGANISM 09/18/2019 MERRITT VALENZUELA DO L Ot D35.00 BENIGN NEOPLASM OF UNSPECIFIED ADRENAL G 09/18/2019 OBINNA PRASAD MD Ot R91 .8 OTHER NONSPECIFIC ABNORMAL FINDING OF SUSAN 09/18/2019 VERONICA LAU FAC, ALI FACP CCDS Ot D35.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 09/18/2019 VERONICA LAU FAC, ALI FACP CCDS Ot E87.1 HYPO-OSMOLALITY AND HYPONATREMIA 09/18/2019 VERONICA LAU FAC, ALI FACP CCDS Ot I10 ESSENTIAL (PRIMARY) HYPERTENSION 09/18/2019 VERONICA LAU FAC, ALI FACP CCDS Ot I48.0 PAROXYSMAL ATRIAL FIBRILLATION 09/18/2019 VERONICA LAU FAC, ALI FACP CCDS Ot I50.32 CHRONIC DIASTOLIC (CONGESTIVE) HEART FAROOQ 09/18/[address] [facility], ALI FACP CCDS Ot J43.8 OTHER EMPHYSEMA 09/18/[address] [facility], ALI FACP CCDS Ot Z72.0 TOBACCO USE 09/18/2019 NIVIA LAU, DIALLO S Ot J44.9 CHRONIC OBSTRUCTIVE PULMONARY DISEASE, U 09/18/2019 BLAKE LAU, ADINA R Ot R06.0 2 SHORTNESS OF BREATH 09/18/2019 NIVIA LAU, DIALLO S Ot J44.9 CHRONIC OBSTRUCTIVE PULMONARY DISEASE, U 09/18/2019 RONNY BENEDICT MD, Ot T21.25XA BURN OF SECOND DEGREE OF BUTTOCK, INITIA 09/18/2019 RONNY BENEDICT MD Ot T24.212A BURN OF SECOND DEGREE OF LEFT THIGH, INI 09/18/2019 RONNY BENEDICT MD, Ot T65.292A TOXIC EFFECT OF TOBACCO AND NICOTINE, SE 09/18/2019 RONNY BENEDICT MD Ot X12.XXXA CONTACT WITH OTHER HOT FLUIDS, INITIAL E 09/18/2019 RONNY BENEDICT MD Ot Y93.G 3 ACTIVITY, COOKING AND BAKING 09/18/2019 ECTOR DORSEY APRN Ot T21.25XA BURN OF SECOND DEGREE OF BUTTOCK, INITIA 09/18/2019 ECTOR DORSEY APRN Ot T24.212A BURN OF SECOND DEGREE OF LEFT THIGH, INI 09/18/2019 ECTOR DORSEY APRN Ot T65.292A TOXIC EFFECT OF TOBACCO AND NICOTINE, SE 09/18/2019 ECTOR DORSEY APRN Ot X12.XXXA CONTACT WITH OTHER HOT FLUIDS, INITIAL E 09/18/2019 ECTOR DORSEY APRN Ot Y93.G3 ACTIVITY, COOKING AND BAKING 09/18/2019 OBINNA PRASAD MD, Ot M81 .0 AGE-RELATED OSTEOPOROSIS W/O CURRENT PAT 09/18/2019 OBINNA PRASAD MD, Ot Z12.31 ENCNTR SCREEN MAMMOGRAM FOR MALIGNANT NE 09/18/2019 OBINNA PRASAD MD Ot Z12.31 ENCNTR SCREEN MAMMOGRAM FOR MALIGNANT NE 09/18/2019 BIANCA BAER, MERRITT Burnett Ot E27.8 OTHER SPECIFIED DISORDERS OF ADRENAL GLA 09/18/2019 VALENZUELA , MERRITT Burnett Ot E55.9 VITAMIN D DEFICIENCY, UNSPECIFIED 09/18/2019 VALENZUELA , MERRITT Burnett Ot E87.1 HYPO-OSMOLALITY AND HYPONATREMIA 09/18/2019 JOVANA HULL MD Ot I65.22 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 09/18/2019 JOVANA HULL MD Ot J38 .7 OTHER DISEASES OF LARYNX 09/18/2019 JOVANA HULL MD Ot R59 .0 LOCALIZED ENLARGED LYMPH NODES 09/18/[address] [facility], ALI FAC CCDS Ot I11.9 HYPERTENSIVE HEART DISEASE WITHOUT HEART 09/18/[address] [facility], ALI FACP CCDS Ot I25.10 ATHSCL HEART DISEASE OF [place] CORONARY 09/18/[address] [facility], ALI [facility] CCDS Ot I48.0 PAROXYSMAL ATRIAL FIBRILLATION 09/18/2019 JOVANA HULL MD Ot C32 .1 MALIGNANT NEOPLASM OF SUPRAGLOTTIS 09/18/2019 JOVANA HULL MD Ot R94 .8 ABNORMAL RESULTS OF FUNCTION STUDIES OF 09/18/2019 REZA LAU, JENNIFER Rucker Ot C32.1 MALIGNANT NEOPLASM OF SUPRAGLOTTIS 09/18/2019 OBINNA PRASAD MD Ot I65.23 OCCLUSION AND STENOSIS OF BILATERAL [place]RE[place] 09/18/2019 OBINNA PRASAD MD Ot R13.13 DYSPHAGIA, PHARYNGEAL PHASE 09/18/2019 OBINNA PRASAD MD Ot R22 .1 LOCALIZED SWELLING, MASS AND LUMP, NECK 09/18/2019 Ot 458.9 HYPO TENSION NOS 09/18/2019 SHAYY PEOPLES MD Ot 253.6 NEUROHYPOPHYSIS DIS NEC 09/18/2019 SHAYY PEOPLES MD Ot 305.1 TOBACCO USE DISORDER 09/18/2019 SHAYY PEOPLES MD Ot 783.21 LOSS OF WEIGHT 09/18/2019 GAGAN LAU, RAYNA Ot V72.84 EXAM PRE-OPERATIVE NOS 09/18/2019 SHYAY PEOPLES MD Ot 789.30 ABDOMINAL/PELVIC SWELLING,MASS/LUMP UNSP 09/18/2019 RICHELLE LAU, SHAYY Burnett Ot 255.9 ADRENAL DISORDER N0S 09/18/2019 RICHELLE LAU, SHAYY Burnett Ot 789.30 ABDOMINAL/PELVIC SWELLING,MASS/LUMP UNSP 09/18/2019 LELE HUGHES MD Ot 338. 4 CHRONIC PAIN SYNDROME 09/18/2019 LELE HUGHES MD Ot 721. 3 LUMBOSACRAL SPONDYLOSIS 09/18/2019 LELE HUGHES MD Ot 722. 52 LUMB/LUMBOSAC DISC DEGEN 09/18/2019 LELE HUGHES MD Ot 729. 1 MYALGIA AND MYOSITIS NOS 09/18/2019 LELE HUGHES MD Ot V58. 69 OTH MED,LT,CURRENT USE 09/18/2019 OBINNA PRASAD MD Ot 921 .0 BLACK EYE NOS 09/18/2019 OBINNA PRASAD MD Ot 959.01 HEAD INJURY, NOS 09/18/2019 OBINNA PRASAD MD Ot E000.8 OTHER EXTERNAL CAUSE STATUS 09/18/2019 OBINNA PRASAD MD Ot E849.0 ACCIDENT IN HOME 09/18/2019 OBINNA PRASAD MD Ot E917.3 FURNIT W/O SUB FALL 09/18/2019 LELE HUGHES MD Ot 724. 02 SPINAL STENOSIS, LUMBAR REG, W/OUT NEURO 09/18/2019 LELE HUGHES MD Ot 733. 13 PATHOLOGIC FRACTURE, VERTEBRAE 09/18/2019 OBINNA PRASAD MD Ot 255 .9 ADRENAL DISORDER N0S 09/18/2019 OBINNA PRASAD MD Ot 244 .9 HYPOTHYROIDISM NOS 09/18/2019 OBINNA PRASAD MD Ot 401 .9 HYPERTENSION NOS 09/18/2019 JOVANA HULL MD Ot 388.70 OTALGIA NOS 09/18/2019 JOVANA HULL MD Ot 462 ACUTE PHARYNGITIS 09/18/2019 JOVANA HULL MD Ot 478 .5 VOCAL CORD DISEASE NEC 09/18/2019 OBINNA PRASAD MD Ot J18 .9 PNEUMONIA, UNSPECIFIED ORGANISM 09/18/2019 MERRITT VALENZUELA DO L Ot D35.00 BENIGN NEOPLASM OF UNSPECIFIED ADRENAL G 09/18/2019 SHANICE MD, OBINNA N Ot R91 .8 OTHER NONSPECIFIC ABNORMAL FINDING OF SUSAN 09/18/[address] [facility], ALI FACP CCDS Ot D35.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 09/18/[address] [facility], ALI FACP CCDS Ot E87.1 HYPO-OSMOLALITY AND HYPONATREMIA 09/18/[address] [facility], ALI FACP CCDS Ot I10 ESSENTIAL (PRIMARY) HYPERTENSION 09/18/[address] [facility] CCDS Ot I48.0 PAROXYSMAL ATRIAL FIBRILLATION 09/18/[address] [facility] CCDS Ot I50.32 CHRONIC DIASTOLIC (CONGESTIVE) HEART FAROOQ 09/18/[address] [facility] CCDS Ot J43.8 OTHER EMPHYSEMA 09/18/[address] [facility] CCDS Ot Z72.0 TOBACCO USE 09/18/2019 NIVIA LAU, DIALLO S Ot J44.9 CHRONIC OBSTRUCTIVE PULMONARY DISEASE, U 09/18/2019 ADINA LOZANO MD Ot R06.0 2 SHORTNESS OF BREATH 09/18/2019 DIALLO GONZÁLES MD S Ot J44.9 CHRONIC OBSTRUCTIVE PULMONARY DISEASE, U 09/18/2019 RONNY BENEDICT MD Ot T21.25XA BURN OF SECOND DEGREE OF BUTTOCK, INITIA 09/18/2019 RONNY BENEDICT MD Ot T24.212A BURN OF SECOND DEGREE OF LEFT THIGH, INI 09/18/2019 RONNY BENEDICT MD Ot T65.292A TOXIC EFFECT OF TOBACCO AND NICOTINE, SE 09/18/2019 RONNY BENEDICT MD Ot X12.XXXA CONTACT WITH OTHER HOT FLUIDS, INITIAL E 09/18/2019 RONNY BENEDICT MD Ot Y93.G 3 ACTIVITY, COOKING AND BAKING 09/18/2019 ECTOR DORSEY APRN Ot T21.25XA BURN OF SECOND DEGREE OF BUTTOCK, INITIA 09/18/2019 ECTOR DORSEY APRN Ot T24.212A BURN OF SECOND DEGREE OF LEFT THIGH, INI 09/18/2019 ECTOR DORSEY APRN Ot T65.292A TOXIC EFFECT OF TOBACCO AND NICOTINE, SE 09/18/2019 ECTOR DORSEY APRN Ot X12.XXXA CONTACT WITH OTHER HOT FLUIDS, INITIAL E 09/18/2019 ECTOR DORSEY APRN Ot Y93.G3 ACTIVITY, COOKING AND BAKING 09/18/2019 OBINNA PRASAD MD, Ot M81 .0 AGE-RELATED OSTEOPOROSIS W/O CURRENT PAT 09/18/2019 OBINNA PRASAD MD, Ot Z12.31 ENCNTR SCREEN MAMMOGRAM FOR MALIGNANT NE 09/18/2019 OBINNA PRASAD MD, Ot Z12.31 ENCNTR SCREEN MAMMOGRAM FOR MALIGNANT NE 09/18/2019 MERRITT VALENZUELA DO Ot E27.8 OTHER SPECIFIED DISORDERS OF ADRENAL GLA 09/18/2019 ZAKIA VALENZUELA DOISON L Ot E55.9 VITAMIN D DEFICIENCY, UNSPECIFIED 09/18/2019 MERRITT VALENZUELA DO Ot E87.1 HYPO-OSMOLALITY AND HYPONATREMIA 09/18/2019 JOVANA HULL MD Ot I65.22 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 09/18/2019 JOVANA HULL MD Ot J38 .7 OTHER DISEASES OF LARYNX 09/18/2019 JOVANA HULL MD Ot R59 .0 LOCALIZED ENLARGED LYMPH NODES 09/18/2019 [facility] CCDS Ot I11.9 HYPERTENSIVE HEART DISEASE WITHOUT HEART 09/18/2019 [facility] CCDS Ot I25.10 ATHSCL HEART DISEASE OF [place] CORONARY 09/18/2019 [facility], [facility] FACP CCDS Ot I48.0 PAROXYSMAL ATRIAL FIBRILLATION 09/18/2019 JOVANA HULL MD Ot C32 .1 MALIGNANT NEOPLASM OF SUPRAGLOTTIS 09/18/2019 JOVANA HULL MD Ot R94 .8 ABNORMAL RESULTS OF FUNCTION STUDIES OF 09/18/2019 REZA LAU, JENNIFER Rucker Ot C32.1 MALIGNANT NEOPLASM OF SUPRAGLOTTIS 09/18/2019 OBINNA PRASAD MD Ot I65.23 OCCLUSION AND STENOSIS OF BILATERAL [place] 09/18/2019 OBINNA PRASAD MD Ot R13.13 DYSPHAGIA, PHARYNGEAL PHASE 09/18/2019 OBINNA PRASAD MD Ot R22 .1 LOCALIZED SWELLING, MASS AND LUMP, NECK 09/19/2019 Ot 458.9 HYPO TENSION NOS 09/19/2019 SHAYY PEOPLES MD Ot 253.6 NEUROHYPOPHYSIS DIS NEC 09/19/2019 SHAYY PEOPLES MD Ot 305.1 TOBACCO USE DISORDER 09/19/2019 SHAYY PEOPLES MD Ot 783.21 LOSS OF WEIGHT 09/19/2019 GAGAN LAU, ANGELINEAADEEPA Ot V72.84 EXAM PRE-OPERATIVE NOS 09/19/2019 RICHELLE LAU, SHAYY Burnett Ot 789.30 ABDOMINAL/PELVIC SWELLING,MASS/LUMP UNSP 09/19/2019 SHAYY PEOPLES MD Ot 255.9 ADRENAL DISORDER N0S 09/19/2019 RICHELLE LAU, SHAYY Burnett Ot 789.30 ABDOMINAL/PELVIC SWELLING,MASS/LUMP UNSP 09/19/2019 LELE HUGHES MD Ot 338. 4 CHRONIC PAIN SYNDROME 09/19/2019 LELE HUGHES MD Ot 721. 3 LUMBOSACRAL SPONDYLOSIS 09/19/2019 LELE HUGHES MD Ot 722. 52 LUMB/LUMBOSAC DISC DEGEN 09/19/2019 LELE HUGHES MD Ot 729. 1 MYALGIA AND MYOSITIS NOS 09/19/2019 LELE HUGHES MD Ot V58. 69 OTH MED,LT,CURRENT USE 09/19/2019 OBINNA PRASAD MD Ot 921 .0 BLACK EYE NOS 09/19/2019 OBINNA PRASAD MD Ot 959.01 HEAD INJURY, NOS 09/19/2019 OBINNA PRASAD MD Ot E000.8 OTHER EXTERNAL CAUSE STATUS 09/19/2019 OBINNA PRASAD MD Ot E849.0 ACCIDENT IN HOME 09/19/2019 OBINNA PRASAD MD Ot E917.3 FURNIT W/O SUB FALL 09/19/2019 LELE HUGHES MD Ot 724. 02 SPINAL STENOSIS, LUMBAR REG, W/OUT NEURO 09/19/2019 LELE HUGHES MD Ot 733. 13 PATHOLOGIC FRACTURE, VERTEBRAE 09/19/2019 OBINNA PRASAD MD Ot 255 .9 ADRENAL DISORDER N0S 09/19/2019 OBINNA PRASAD MD Ot 244 .9 HYPOTHYROIDISM NOS 09/19/2019 OBINNA PRASAD MD Ot 401 .9 HYPERTENSION NOS 09/19/2019 JOVANA HULL MD Ot 388.70 OTALGIA NOS 09/19/2019 JOVANA HULL MD Ot 462 ACUTE PHARYNGITIS 09/19/2019 JOVANA HULL MD Ot 478 .5 VOCAL CORD DISEASE NEC 09/19/2019 OBINNA PRASAD MD Ot J18 .9 PNEUMONIA, UNSPECIFIED ORGANISM 09/19/2019 MERRITT VALENZUELA DO L Ot D35.00 BENIGN NEOPLASM OF UNSPECIFIED ADRENAL G 09/19/2019 OBINNA PRASAD MD Ot R91 .8 OTHER NONSPECIFIC ABNORMAL FINDING OF [place] 09/19/[address] [facility] CCDS Ot D35.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 09/19/[address] [facility] CCDS Ot E87.1 HYPO-OSMOLALITY AND HYPONATREMIA 09/19/[address] [facility] CCDS Ot I10 ESSENTIAL (PRIMARY) HYPERTENSION 09/19/[address] [facility] CCDS Ot I48.0 PAROXYSMAL ATRIAL FIBRILLATION 09/19/[address] [facility] CCDS Ot I50.32 CHRONIC DIASTOLIC (CONGESTIVE) HEART FAROOQ 09/19/[address] [facility] CCDS Ot J43.8 OTHER EMPHYSEMA 09/19/[address] [facility] CCDS Ot Z72.0 TOBACCO USE 09/19/2019 NIVIA LAU, DIALLO S Ot J44.9 CHRONIC OBSTRUCTIVE PULMONARY DISEASE, U 09/19/2019 ADINA LOZANO MD R Ot R06.0 2 SHORTNESS OF BREATH 09/19/2019 NIVIA LAU, DIALLO S Ot J44.9 CHRONIC OBSTRUCTIVE PULMONARY DISEASE, U 09/19/2019 RONNY BENEDICT MD Ot T21.25XA BURN OF SECOND DEGREE OF BUTTOCK, INITIA 09/19/2019 RONNY BENEDICT MD Ot T24.212A BURN OF SECOND DEGREE OF LEFT THIGH, INI 09/19/2019 RONNY BENEDICT MD Ot T65.292A TOXIC EFFECT OF TOBACCO AND NICOTINE, SE 09/19/2019 RONNY BENEDICT MD Ot X12.XXXA CONTACT WITH OTHER HOT FLUIDS, INITIAL E 09/19/2019 RONNY BENEDICT MD Ot Y93.G 3 ACTIVITY, COOKING AND BAKING 09/19/2019 ECTOR DORSEY APRN Ot T21.25XA BURN OF SECOND DEGREE OF BUTTOCK, INITIA 09/19/2019 ECTOR DORSEY APRN Ot T24.212A BURN OF SECOND DEGREE OF LEFT THIGH, INI 09/19/2019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 DISC DEGEN 10/25/2019 LELE HUGHES MD Ot 729. 1 MYALGIA AND MYOSITIS NOS 10/25/2019 LELE HUGHES MD Ot V58. 69 OTH MED,LT,CURRENT USE 10/25/2019 OBINNA PRASAD MD Ot 921 .0 BLACK EYE NOS 10/25/2019 OBINNA PRASAD MD Ot 959.01 HEAD INJURY, NOS 10/25/2019 OBINNA PRASAD MD Ot E000.8 OTHER EXTERNAL CAUSE STATUS 10/25/2019 OBINNA PRASAD MD Ot E849.0 ACCIDENT IN HOME 10/25/2019 OBINNA PRASAD MD Ot E917.3 FURNIT W/O SUB FALL 10/25/2019 LELE HUGHES MD Ot 724. 02 SPINAL STENOSIS, LUMBAR REG, W/OUT NEURO 10/25/2019 LELE HUGHES MD Ot 733. 13 PATHOLOGIC FRACTURE, VERTEBRAE 10/25/2019 OBINNA PRASAD MD Ot 255 .9 ADRENAL DISORDER N0S 10/25/2019 OBINNA PRASAD MD Ot 244 .9 HYPOTHYROIDISM NOS 10/25/2019 OBINNA PRASAD MD Ot 401 .9 HYPERTENSION NOS 10/25/2019 JOVANA HULL MD Ot 388.70 OTALGIA NOS 10/25/2019 JOVANA HULL MD Ot 462 ACUTE PHARYNGITIS 10/25/2019 JOVANA HULL MD Ot 478 .5 VOCAL CORD DISEASE NEC 10/25/2019 OBINNA PRASAD MD Ot J18 .9 PNEUMONIA, UNSPECIFIED ORGANISM 10/25/2019 MERRITT VALENZUELA DO L Ot D35.00 BENIGN NEOPLASM OF UNSPECIFIED ADRENAL G 10/25/2019 SHANICE LAU, OBINNA Corral Ot R91 .8 OTHER NONSPECIFIC ABNORMAL FINDING OF [place]US[place] 10/25/[address] [facility], ALI FACP CCDS Ot D35.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 10/25/[address] [facility], ALI FACP CCDS Ot E87.1 HYPO-OSMOLALITY AND HYPONATREMIA 10/25/[address] [facility], ALI FACP CCDS Ot I10 ESSENTIAL (PRIMARY) HYPERTENSION 10/25/[address] [facility], ALI FACP CCDS Ot I48.0 PAROXYSMAL ATRIAL FIBRILLATION 10/25/[address] [facility], ALI FACP CCDS Ot I50.32 CHRONIC DIASTOLIC (CONGESTIVE) HEART FAROOQ 10/25/[address] [facility], ALI FACP CCDS Ot J43.8 OTHER EMPHYSEMA 10/25/[address] [facility], ALI FACP CCDS Ot Z72.0 TOBACCO USE 10/25/2019 NIVIA LAU, DIALLO S Ot J44.9 CHRONIC OBSTRUCTIVE PULMONARY DISEASE, U 10/25/2019 ADINA LOZANO MD Ot R06.0 2 SHORTNESS OF BREATH 10/25/2019 DIALLO GONZÁLES MD S Ot J44.9 CHRONIC OBSTRUCTIVE PULMONARY DISEASE, U 10/25/2019 RONNY BENEDICT MD Ot T21.25XA BURN OF SECOND DEGREE OF BUTTOCK, INITIA 10/25/2019 RONNY BENEDICT MD Ot T24.212A BURN OF SECOND DEGREE OF LEFT THIGH, INI 10/25/2019 RONNY BENEDICT MD Ot T65.292A TOXIC EFFECT OF TOBACCO AND NICOTINE, SE 10/25/2019 RONNY BENEDICT MD Ot X12.XXXA CONTACT WITH OTHER HOT FLUIDS, INITIAL E 10/25/2019 RONNY BENEDICT MD Ot Y93.G 3 ACTIVITY, COOKING AND BAKING 10/25/2019 ECTOR DORSEY APRN Ot T21.25XA BURN OF SECOND DEGREE OF BUTTOCK, INITIA 10/25/2019 ECTOR DORSEY APRN Ot T24.212A BURN OF SECOND DEGREE OF LEFT THIGH, INI 10/25/2019 ECTOR DORSEY APRN Ot T65.292A TOXIC EFFECT OF TOBACCO AND NICOTINE, SE 10/25/2019 ECTOR DORSEY APRN Ot X12.XXXA CONTACT WITH OTHER HOT FLUIDS, INITIAL E 10/25/2019 WILLIAN ECTOREllis Mullins APRN Ot Y93.G3 ACTIVITY, COOKING AND BAKING 10/25/2019 OBINNA PRASAD MD, Ot M81 .0 AGE-RELATED OSTEOPOROSIS W/O CURRENT PAT 10/25/2019 OBINNA PRASAD MD, Ot Z12.31 ENCNTR SCREEN MAMMOGRAM FOR MALIGNANT NE 10/25/2019 OBINNA PRASAD MD, Ot Z12.31 ENCNTR SCREEN MAMMOGRAM FOR MALIGNANT NE 10/25/2019 MERRITT VALENZUELA DO Ot E27.8 OTHER SPECIFIED DISORDERS OF ADRENAL GLA 10/25/2019 MERRITT VALENZUELA DO Ot E55.9 VITAMIN D DEFICIENCY, UNSPECIFIED 10/25/2019 MERRITT VALENZUELA DO Ot E87.1 HYPO-OSMOLALITY AND HYPONATREMIA 10/25/2019 JOVANA HULL MD Ot I65.22 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 10/25/2019 JOVANA HULL MD Ot J38 .7 OTHER DISEASES OF LARYNX 10/25/2019 JOVANA HULL MD Ot R59 .0 LOCALIZED ENLARGED LYMPH NODES 10/25/2019 VERONICA LAU FAC, ALI FACP CCDS Ot I11.9 HYPERTENSIVE HEART DISEASE WITHOUT HEART 10/25/2019 VERONICA LAU FAC, ALI FACP CCDS Ot I25.10 ATHSCL HEART DISEASE OF [place] CORONARY 10/25/[address] [facility], ALI FACP CCDS Ot I48.0 PAROXYSMAL ATRIAL FIBRILLATION 10/25/2019 JOVANA HULL MD Ot C32 .1 MALIGNANT NEOPLASM OF SUPRAGLOTTIS 10/25/2019 JOVANA HULL MD Ot R94 .8 ABNORMAL RESULTS OF FUNCTION STUDIES OF 10/25/2019 REZA LAU, JENNIFER Rukcer Ot C32.1 MALIGNANT NEOPLASM OF SUPRAGLOTTIS 10/25/2019 OBINNA PRASAD MD Ot I65.23 OCCLUSION AND STENOSIS OF BILATERAL [place] 10/25/2019 OBINNA PRASAD MD Ot R13.13 DYSPHAGIA, PHARYNGEAL PHASE 10/25/2019 OBINNA PRASAD MD, Ot R22 .1 LOCALIZED SWELLING, MASS AND LUMP, NECK 10/25/2019 JOVANA HULL MD Ot C32 .9 MALIGNANT NEOPLASM OF L[place], UNSPECIFIE 10/25/2019 JOVANA HULL MD Ot J31 .2 CHRONIC PHARYNGITIS 10/25/2019 KURTIS LAU JOVANA Leal Ot Z92 .3 PERSONAL HISTORY OF IRRADIATION 10/25/2019 HERNANDEZ DO, JARED Ot D64.9 ANEMIA, UNSPECIFIED 10/25/2019 HERNANDEZ DO, JARED Ot E03.9 HYPOTHYROIDISM, UNSPECIFIED 10/25/2019 HERNANDEZ DO, JARED Ot E86.0 DEHYDRATION 10/25/2019 HERNANDEZ DO, JARED Ot 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, CIGARETTES, UNCOMPL 10/25/2019 HERNANDEZ DO, JARED Ot F41.9 ANXIETY DISORDER, UNSPECIFIED 10/25/2019 HERNANDEZ DO, JARED Ot G89.29 OTHER CHRONIC PAIN 10/25/2019 HERNANDEZ DO, JARED Ot I10 ESSENTIAL (PRIMARY) HYPERTENSION 10/25/2019 HERNANDEZ DO, JARED Ot I25.10 ATHSCL HEART DISEASE OF [place] CORONARY 10/25/2019 HERNANDEZ DO, JARED Ot I48.91 UNSPECIFIED ATRIAL FIBRILLATION 10/25/2019 HERNANDEZ DO, JARED Ot J43.9 EMPHYSEMA, UNSPECIFIED 10/25/2019 HERNANDEZ DO, JARED Ot K21.9 GASTRO-ESOPHAGEAL REFLUX DISEASE WITHOUT 10/25/2019 HERNANDEZ DO, JARED Ot K59.09 OTHER CONSTIPATION 10/25/2019 HERNANDEZ DO, JARED Ot M19.90 UNSPECIFIED OSTEOARTHRITIS, UNSPECIFIED 10/25/2019 HERNANDEZ DO, JARED Ot R60.0 LOCALIZED EDEMA 10/25/2019 HERNANDEZ DO, JARED Ot Z79.01 SPECIMEN BOSS (CURRENT) USE OF ANTICOAGULANT 10/25/2019 MARY BAER, JARED Ot Z79.52 SPECIMEN BOSS (CURRENT) USE OF SYSTEMIC STER 10/25/2019 MARY BAER, JARED Ot Z79.82 SPECIMEN BOSS (CURRENT) USE OF ASPIRIN 10/25/2019 MARY BAER, JARED Ot Z79.89 1 SPECIMEN BOSS (CURRENT) USE OF OPIATE ANALGE 10/25/2019 MARY BAER, JARED Ot Z79.89 9 OTHER HALF-WAY (CURRENT) DRUG THERAPY 10/25/2019 MARY BAER, JARED Ot Z85.01 PERSONAL HISTORY OF MALIGNANT NEOPLASM O 10/25/2019 MARY BAER, JARED Ot Z85.81 8 PRSNL HX OF MALIG NEOPLM OF SITE OF LIP, 10/25/2019 MARY BAER JARED Ot Z88.6 ALLERGY STATUS TO ANALGESIC AGENT STATUS 10/25/2019 HERNANDEZ , JARED Ot Z90.09 ACQUIRED ABSENCE OF OTHER PART OF HEAD A 10/25/2019 MARY BAER, JARED Ot Z92.21 PERSONAL HISTORY OF ANTINEOPLASTIC CHEMO 10/25/2019 HERNANDEZ , JARED Ot Z92.3 PERSONAL HISTORY OF IRRADIATION 10/25/2019 MARY BAER, JARED Ot D64.9 ANEMIA, UNSPECIFIED 10/25/2019 MARY BAER, JARED Ot E03.9 HYPOTHYROIDISM, UNSPECIFIED 10/25/2019 HERNANDEZ DO, JARED Ot E86.0 DEHYDRATION 10/25/2019 HERNANDEZ DO, JARED Ot 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, CIGARETTES, UNCOMPL 10/25/2019 HERNANDEZ DO, JARED Ot F41.9 ANXIETY DISORDER, UNSPECIFIED 10/25/2019 AMRY BAER, JARED Ot G89.29 OTHER CHRONIC PAIN 10/25/2019 MARY BAER, JARED Ot I10 ESSENTIAL (PRIMARY) HYPERTENSION 10/25/2019 MARY BAER JARED Ot I25.10 ATHSCL HEART DISEASE OF [place] CORONARY 10/25/2019 MARY BAER, JARED Ot I48.91 UNSPECIFIED ATRIAL FIBRILLATION 10/25/2019 MARY BAER, JARED Ot J43.9 EMPHYSEMA, UNSPECIFIED 10/25/2019 MARY BAER, JARED Ot K21.9 GASTRO-ESOPHAGEAL REFLUX DISEASE WITHOUT 10/25/2019 MARY BAER, JARED Ot K59.09 OTHER CONSTIPATION 10/25/2019 MARY BAER, JARED Ot M19.90 UNSPECIFIED OSTEOARTHRITIS, UNSPECIFIED 10/25/2019 MARY BAER, JARED Ot R60.0 LOCALIZED EDEMA 10/25/2019 MARY BAER JARED Ot Z79.01 SPECIMEN BOSS (CURRENT) USE OF ANTICOAGULANT 10/25/2019 MARY BAER JARED Ot Z79.52 HALF-WAY (CURRENT) USE OF SYSTEMIC STER 10/25/2019 MARY BAER JARED Ot Z79.82 SPECIMEN BOSS (CURRENT) USE OF ASPIRIN 10/25/2019 MARY BAER JARED Ot Z79.89 1 SPECIMEN BOSS (CURRENT) USE OF OPIATE ANALGE 10/25/2019 MARY BAER JARED Ot Z79.89 9 OTHER HALF-WAY (CURRENT) DRUG THERAPY 10/25/2019 MARY BAER JARED Ot Z85.01 PERSONAL HISTORY OF MALIGNANT NEOPLASM O 10/25/2019 NATASHA HERNANDEZ DOI Ot Z85.81 8 PRSNL HX OF MALIG NEOPLM OF SITE OF LIP, 10/25/2019 NATASHA HERNANDEZ DOI Ot Z88.6 ALLERGY STATUS TO ANALGESIC AGENT STATUS 10/25/2019 NATASHA HERNANDEZ DOI Ot Z90.09 ACQUIRED ABSENCE OF OTHER PART OF HEAD A 10/25/2019 NATASHA HERNANDEZ DOI Ot Z92.21 PERSONAL HISTORY OF ANTINEOPLASTIC CHEMO 10/25/2019 MARY BAERJARED Ot Z92.3 PERSONAL HISTORY OF IRRADIATION 11/05/2019 KURTIS LAU, JOVANA Leal Ot C32 .9 MALIGNANT NEOPLASM OF LARYN[place], UNSPECIFIE 11/05/2019 JOVANA HULL MD Ot J31 .2 CHRONIC PHARYNGITIS 11/05/2019 JOVANA HULL MD Ot Z92 .3 PERSONAL HISTORY OF IRRADIATION 11/05/2019 Ot 458.9 HYPO TENSION NOS 11/05/2019 GAGAN LAU, RAYNA Ot V72.84 EXAM PRE-OPERATIVE NOS 11/05/2019 RICHELLE LAU, SHAYY Burnett Ot 789.30 ABDOMINAL/PELVIC SWELLING,MASS/LUMP UNSP 11/05/2019 SHAYY PEOPLES MD Ot 255.9 ADRENAL DISORDER N0S 11/05/2019 SHAYY PEOPLES MD Ot 789.30 ABDOMINAL/PELVIC SWELLING,MASS/LUMP UNSP 11/05/2019 LELE HUGHES MD Ot 338. 4 CHRONIC PAIN SYNDROME 11/05/2019 LELE HUGHES MD Ot 721. 3 LUMBOSACRAL SPONDYLOSIS 11/05/2019 LELE HUGHES MD Ot 722. 52 LUMB/LUMBOSAC DISC DEGEN 11/05/2019 LELE HUGHES MD Ot 729. 1 MYALGIA AND MYOSITIS NOS 11/05/2019 LELE HUGHES MD Ot V58. 69 OTH MED,LT,CURRENT USE 11/05/2019 OBINNA PRASAD MD Ot 921 .0 BLACK EYE NOS 11/05/2019 OBINNA PRASAD MD Ot 959.01 HEAD INJURY, NOS 11/05/2019 OBINNA PRASAD MD Ot E000.8 OTHER EXTERNAL CAUSE STATUS 11/05/2019 OBINNA PRASAD MD Ot E849.0 ACCIDENT IN HOME 11/05/2019 OBINNA PRASAD MD Ot E917.3 FURNIT W/O SUB FALL 11/05/2019 LELE HUGHES MD Ot 724. 02 SPINAL STENOSIS, LUMBAR REG, W/OUT NEURO 11/05/2019 LELE HUGHES MD Ot 733. 13 PATHOLOGIC FRACTURE, VERTEBRAE 11/05/2019 SHANICE LAU, OBINNA Corral Ot 255 .9 ADRENAL DISORDER N0S 11/05/2019 SHANICE LAU, OBINNA Corral Ot 244 .9 HYPOTHYROIDISM NOS 11/05/2019 SHANICE LAU, OBINNA Corral Ot 401 .9 HYPERTENSION NOS 11/05/2019 KURTIS LAU, JOVANA Leal Ot 388.70 OTALGIA NOS 11/05/2019 KURTIS LAU, JOVANA P Ot 462 ACUTE PHARYNGITIS 11/05/2019 JOVANA HULL MD Ot 478 .5 VOCAL CORD DISEASE NEC 11/05/2019 SHANICE LAU, OBINNA Corral Ot J18 .9 PNEUMONIA, UNSPECIFIED ORGANISM 11/05/2019 BIANCA BAER, MERRITT L Ot D35.00 BENIGN NEOPLASM OF UNSPECIFIED ADRENAL G 11/05/2019 OBINNA PRASAD MD Ot R91 .8 OTHER NONSPECIFIC ABNORMAL FINDING OF [place]US[place] 11/05/2019 VERONICA LAU FAC, ALI FACP CCDS Ot D35.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 11/05/2019 VERONICA LAU FAC, ALI FACP CCDS Ot E87.1 HYPO-OSMOLALITY AND HYPONATREMIA 11/05/2019 VERONICA LAU FAC, ALI FACP CCDS Ot I10 ESSENTIAL (PRIMARY) HYPERTENSION 11/05/2019 VERONICA LAU FAC, ALI FACP CCDS Ot I48.0 PAROXYSMAL ATRIAL FIBRILLATION 11/05/2019 VERONICA LAU FAC, ALI FACP CCDS Ot I50.32 CHRONIC DIASTOLIC (CONGESTIVE) HEART FAROOQ 11/05/2019 VERONICA LAU FAC, ALI FACP CCDS Ot J43.8 OTHER EMPHYSEMA 11/05/2019 VERONICA LAU FAC, ALI FACP CCDS Ot Z72.0 TOBACCO USE 11/05/2019 DIALLO GONZÁLES MD S Ot J44.9 CHRONIC OBSTRUCTIVE PULMONARY DISEASE, U 11/05/2019 ADINA LOZANO MD Ot R06.0 2 SHORTNESS OF BREATH 11/05/2019 DIALLO GONZÁLES MD S Ot J44.9 CHRONIC OBSTRUCTIVE PULMONARY DISEASE, U 11/05/2019 MARICHUY LAU, RONNY Greco Ot T21.25XA BURN OF SECOND DEGREE OF BUTTOCK, INITIA 11/05/2019 RONNY BENEDICT MD Ot T24.212A BURN OF SECOND DEGREE OF LEFT THIGH, INI 11/05/2019 RONNY BENEDICT MD Ot T65.292A TOXIC EFFECT OF TOBACCO AND NICOTINE, SE 11/05/2019 RONNY BENEDICT MD Ot X12.XXXA CONTACT WITH OTHER HOT FLUIDS, INITIAL E 11/05/2019 RONNY BENEDICT MD Ot Y93.G 3 ACTIVITY, COOKING AND BAKING 11/05/2019 ECTOR DORSEY APRN Ot T21.25XA BURN OF SECOND DEGREE OF BUTTOCK, INITIA 11/05/2019 ECTOR DORSEY SAWMILL TALLY CLERK Ot T24.212A BURN OF SECOND DEGREE OF LEFT THIGH, INI 11/05/2019 ECTOR DORSEY APRN Ot T65.292A TOXIC EFFECT OF TOBACCO AND NICOTINE, SE 11/05/2019 ECTOR DORSEY APRN Ot X12.XXXA CONTACT WITH OTHER HOT FLUIDS, INITIAL E 11/05/2019 ECTOR DORSEY APRN Ot Y93.G3 ACTIVITY, COOKING AND BAKING 11/05/2019 OBINNA PRASAD MD Ot M81 .0 AGE-RELATED OSTEOPOROSIS W/O CURRENT PAT 11/05/2019 OBINNA PRASAD MD Ot Z12.31 ENCNTR SCREEN MAMMOGRAM FOR MALIGNANT NE 11/05/2019 OBINNA PRASAD MD Ot Z12.31 ENCNTR SCREEN MAMMOGRAM FOR MALIGNANT NE 11/05/2019 MERRITT VALENZUELA DO Ot E27.8 OTHER SPECIFIED DISORDERS OF ADRENAL GLA 11/05/2019 MERRITT VALENZUELA DO Ot E55.9 VITAMIN D DEFICIENCY, UNSPECIFIED 11/05/2019 MERRITT VALENZUELA DO Ot E87.1 HYPO-OSMOLALITY AND HYPONATREMIA 11/05/2019 JOVANA HULL MD Ot I65.22 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 11/05/2019 JOVANA HULL MD Ot J38 .7 OTHER DISEASES OF LARYNX 11/05/2019 JOVANA HULL MD Ot R59 .0 LOCALIZED ENLARGED LYMPH NODES 11/05/2019 VERONICA LAU FACC, ALI FACP CCDS Ot I11.9 HYPERTENSIVE HEART DISEASE WITHOUT HEART 11/05/2019 VERONICA LAU FACC, ALI FACP CCDS Ot I25.10 ATHSCL HEART DISEASE OF [place] CORONARY 11/05/2019 VERONICA LAU FAC, ALI FACP CCDS Ot I48.0 PAROXYSMAL ATRIAL FIBRILLATION 11/05/2019 JOVANA HULL MD, Ot C32 .1 MALIGNANT NEOPLASM OF SUPRAGLOTTIS 11/05/2019 JOVANA HULL MD Ot R94 .8 ABNORMAL RESULTS OF FUNCTION STUDIES OF 11/05/2019 REZA LAU, JENNIFER Rucker Ot C32.1 MALIGNANT NEOPLASM OF SUPRAGLOTTIS 11/05/2019 OBINNA PRASAD MD Ot I65.23 OCCLUSION AND STENOSIS OF BILATERAL [place] 11/05/2019 OBINNA PRASAD MD Ot R13.13 DYSPHAGIA, PHARYNGEAL PHASE 11/05/2019 OBINNA PRASAD MD Ot R22 .1 LOCALIZED SWELLING, MASS AND LUMP, NECK 11/05/2019 JOVANA HULL MD Ot C32 .9 MALIGNANT NEOPLASM OF LARYNX, UNSPECIFIE 11/05/2019 JOVANA HULL MD Ot J31 .2 CHRONIC PHARYNGITIS 11/05/2019 JOVANA HULL MD Ot Z92 .3 PERSONAL HISTORY OF IRRADIATION 11/07/2019 Ot 458.9 HYPO TENSION NOS 11/07/2019 RICHELLE LAU, SHAYY Burnett Ot 789.30 ABDOMINAL/PELVIC SWELLING,MASS/LUMP UNSP 11/07/2019 SHAYY PEOPLES MD Ot 255.9 ADRENAL DISORDER N0S 11/07/2019 SHAYY PEOPLES MD Ot 789.30 ABDOMINAL/PELVIC SWELLING,MASS/LUMP UNSP 11/07/2019 LELE HUGHES MD Ot 338. 4 CHRONIC PAIN SYNDROME 11/07/2019 LELE HUGHES MD Ot 721. 3 LUMBOSACRAL SPONDYLOSIS 11/07/2019 LELE HUGHES MD Ot 722. 52 LUMB/LUMBOSAC DISC DEGEN 11/07/2019 LELE HUGHES MD Ot 729. 1 MYALGIA AND MYOSITIS NOS 11/07/2019 LELE HUGHES MD Ot V58. 69 OTH MED,LT,CURRENT USE 11/07/2019 OBINNA PRASAD MD Ot 921 .0 BLACK EYE NOS 11/07/2019 OBINNA PRASAD MD Ot 959.01 HEAD INJURY, NOS 11/07/2019 OBINNA PRASAD MD Ot E000.8 OTHER EXTERNAL CAUSE STATUS 11/07/2019 OBINNA PRASAD MD Ot E849.0 ACCIDENT IN HOME 11/07/2019 OBINNA PRASAD MD Ot E917.3 FURNIT W/O SUB FALL 11/07/2019 SAUL LAU, ELLE Mera Ot 724. 02 SPINAL STENOSIS, LUMBAR REG, W/OUT NEURO 11/07/2019 SAUL LAU, LELE Mera Ot 733. 13 PATHOLOGIC FRACTURE, VERTEBRAE 11/07/2019 OBINNA PRASAD MD Ot 255 .9 ADRENAL DISORDER N0S 11/07/2019 OBINNA PRASAD MD Ot 244 .9 HYPOTHYROIDISM NOS 11/07/2019 OBINNA PRASAD MD Ot 401 .9 HYPERTENSION NOS 11/07/2019 JOVANA HULL MD Ot 388.70 OTALGIA NOS 11/07/2019 JOVANA HULL MD Ot 462 ACUTE PHARYNGITIS 11/07/2019 JOVANA HULL MD Ot 478 .5 VOCAL CORD DISEASE NEC 11/07/2019 OBINNA PRASAD MD Ot J18 .9 PNEUMONIA, UNSPECIFIED ORGANISM 11/07/2019 MERRITT VALENZUELA DO L Ot D35.00 BENIGN NEOPLASM OF UNSPECIFIED ADRENAL G 11/07/2019 OBINNA PRASAD MD Ot R91 .8 OTHER NONSPECIFIC ABNORMAL FINDING OF [place]US[place] 11/07/2019 VERONICA LAU FAC, ALI FACP CCDS Ot D35.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 11/07/2019 VERONICA MARIE, ALI FACP CCDS Ot E87.1 HYPO-OSMOLALITY AND HYPONATREMIA 11/07/2019 VERONICA MARIE, ALI FACP CCDS Ot I10 ESSENTIAL (PRIMARY) HYPERTENSION 11/07/2019 VERONICA LAU FAC, ALI FACP CCDS Ot I48.0 PAROXYSMAL ATRIAL FIBRILLATION 11/07/2019 VERONICA LAU FAC, ALI FACP CCDS Ot I50.32 CHRONIC DIASTOLIC (CONGESTIVE) HEART FAROOQ 11/07/2019 VERONICA LAU FACC, ALI FACP CCDS Ot J43.8 OTHER EMPHYSEMA 11/07/2019 VERONICA MARIE, ALI FACP CCDS Ot Z72.0 TOBACCO USE 11/07/2019 NIVIA LAU, DIALLO Quinones Ot J44.9 CHRONIC OBSTRUCTIVE PULMONARY DISEASE, U 11/07/2019 BLAKE LAU, ADINA Mullins Ot R06.0 2 SHORTNESS OF BREATH 11/07/2019 NIVIA LAU, DIALLO S Ot J44.9 CHRONIC OBSTRUCTIVE PULMONARY DISEASE, U 11/07/2019 RONNY BENEDICT MD Ot T21.25XA BURN OF SECOND DEGREE OF BUTTOCK, INITIA 11/07/2019 RONNY BENEDICT MD Ot T24.212A BURN OF SECOND DEGREE OF LEFT THIGH, INI 11/07/2019 RONNY BENEDICT MD Ot T65.292A TOXIC EFFECT OF TOBACCO AND NICOTINE, SE 11/07/2019 RONNY BENEDICT MD Ot X12.XXXA CONTACT WITH OTHER HOT FLUIDS, INITIAL E 11/07/2019 RONNY BENEDICT MD Ot Y93.G 3 ACTIVITY, COOKING AND BAKING 11/07/2019 ECTOR DORSEY APRN Ot T21.25XA BURN OF SECOND DEGREE OF BUTTOCK, INITIA 11/07/2019 ECTOR DORSEY APRN Ot T24.212A BURN OF SECOND DEGREE OF LEFT THIGH, INI 11/07/2019 ECTOR DORSEY APRN Ot T65.292A TOXIC EFFECT OF TOBACCO AND NICOTINE, SE 11/07/2019 ECTOR DORSEY APRN Ot X12.XXXA CONTACT WITH OTHER HOT FLUIDS, INITIAL E 11/07/2019 ECTOR DORSEY APRN Ot Y93.G3 ACTIVITY, COOKING AND BAKING 11/07/2019 OBINNA PRASAD MD, Ot M81 .0 AGE-RELATED OSTEOPOROSIS W/O CURRENT PAT 11/07/2019 OBINNA PRASAD MD Ot Z12.31 ENCNTR SCREEN MAMMOGRAM FOR MALIGNANT NE 11/07/2019 OBINNA PRASAD MD, Ot Z12.31 ENCNTR SCREEN MAMMOGRAM FOR MALIGNANT NE 11/07/2019 MERRITT VALENZUELA DO Ot E27.8 OTHER SPECIFIED DISORDERS OF ADRENAL GLA 11/07/2019 MERRITT VALENZUELA DO Ot E55.9 VITAMIN D DEFICIENCY, UNSPECIFIED 11/07/2019 MERRITT VALENZUELA DO Ot E87.1 HYPO-OSMOLALITY AND HYPONATREMIA 11/07/2019 JOVANA HULL MD Ot I65.22 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 11/07/2019 JOVANA HULL MD Ot J38 .7 OTHER DISEASES OF LARYNX 11/07/2019 JOVANA HULL MD Ot R59 .0 LOCALIZED ENLARGED LYMPH NODES 11/07/2019 VERONICA LAU FACC, ALI FACP CCDS Ot I11.9 HYPERTENSIVE HEART DISEASE WITHOUT HEART 11/07/[address] [facility] CCDS Ot I25.10 ATHSCL HEART DISEASE OF [place] CORONARY 11/07/[address] [facility] CCDS Ot I48.0 PAROXYSMAL ATRIAL FIBRILLATION 11/07/2019 JOVANA HULL MD Ot C32 .1 MALIGNANT NEOPLASM OF SUPRAGLOTTIS 11/07/2019 JOVANA HULL MD Ot R94 .8 ABNORMAL RESULTS OF FUNCTION STUDIES OF 11/07/2019 REZA LAU, JENNIFER Rucker Ot C32.1 MALIGNANT NEOPLASM OF SUPRAGLOTTIS 11/07/2019 OBINNA PRASAD MD Ot I65.23 OCCLUSION AND STENOSIS OF BILATERAL [place] 11/07/2019 OBINNA PRASAD MD Ot R13.13 DYSPHAGIA, PHARYNGEAL PHASE 11/07/2019 OBINNA PRASAD MD Ot R22 .1 LOCALIZED SWELLING, MASS AND LUMP, NECK 11/07/2019 JOVANA HULL MD Ot C32 .9 MALIGNANT NEOPLASM OF LARYNX, UNSPECIFIE 11/07/2019 JOVANA HULL MD Ot J31 .2 CHRONIC PHARYNGITIS 11/07/2019 JOVANA HULL MD Ot Z92 .3 PERSONAL HISTORY OF IRRADIATION 11/15/2019 Ot 458.9 HYPO TENSION NOS 11/15/2019 RICHELLE LAU, SHAYY Burnett Ot 789.30 ABDOMINAL/PELVIC SWELLING,MASS/LUMP UNSP 11/15/2019 SHAYY PEOPLES MD Ot 255.9 ADRENAL DISORDER N0S 11/15/2019 SHAYY PEOPLES MD Ot 789.30 ABDOMINAL/PELVIC SWELLING,MASS/LUMP UNSP 11/15/2019 LELE HUGHES MD Ot 338. 4 CHRONIC PAIN SYNDROME 11/15/2019 LELE HUGHES MD Ot 721. 3 LUMBOSACRAL SPONDYLOSIS 11/15/2019 LELE HUGHES MD Ot 722. 52 LUMB/LUMBOSAC DISC DEGEN 11/15/2019 LELE HUGHES MD Ot 729. 1 MYALGIA AND MYOSITIS NOS 11/15/2019 LELE HUGHES MD Ot V58. 69 OTH MED,LT,CURRENT USE 11/15/2019 OBINNA PRASAD MD Ot 921 .0 BLACK EYE NOS 11/15/2019 OBINNA PRASAD MD Ot 959.01 HEAD INJURY, NOS 11/15/2019 OBINNA PRASAD MD Ot E000.8 OTHER EXTERNAL CAUSE STATUS 11/15/2019 OBINNA PRASAD MD Ot E849.0 ACCIDENT IN HOME 11/15/2019 OBINNA PRASAD MD Ot E917.3 FURNIT W/O SUB FALL 11/15/2019 LELE HUGHES MD Ot 724. 02 SPINAL STENOSIS, LUMBAR REG, W/OUT NEURO 11/15/2019 LEEL HUGHES MD Ot 733. 13 PATHOLOGIC FRACTURE, VERTEBRAE 11/15/2019 OBINNA PRASAD MD Ot 255 .9 ADRENAL DISORDER N0S 11/15/2019 OBINNA PRASAD MD Ot 244 .9 HYPOTHYROIDISM NOS 11/15/2019 OBINNA PRASAD MD Ot 401 .9 HYPERTENSION NOS 11/15/2019 JOVANA HULL MD Ot 388.70 OTALGIA NOS 11/15/2019 JOVANA HULL MD P Ot 462 ACUTE PHARYNGITIS 11/15/2019 JOVANA HULL MD P Ot 478 .5 VOCAL CORD DISEASE NEC 11/15/2019 OBINNA PRASAD MD Ot J18 .9 PNEUMONIA, UNSPECIFIED ORGANISM 11/15/2019 MERRITT VALENZUELA DO L Ot D35.00 BENIGN NEOPLASM OF UNSPECIFIED ADRENAL G 11/15/2019 OBINNA PRASAD MD Ot R91 .8 OTHER NONSPECIFIC ABNORMAL FINDING OF [place]US[place] 11/15/2019 VERONICA LAU FACC, ALI FACP CCDS Ot D35.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 11/15/2019 VREONICA LAU FACC, ALI FACP CCDS Ot E87.1 HYPO-OSMOLALITY AND HYPONATREMIA 11/15/2019 VERONICA MARIEC, ALI FACP CCDS Ot I10 ESSENTIAL (PRIMARY) HYPERTENSION 11/15/2019 VERONICA LAU FACC, ALI FACP CCDS Ot I48.0 PAROXYSMAL ATRIAL FIBRILLATION 11/15/2019 VERONICA LAU FACC, ALI FACP CCDS Ot I50.32 CHRONIC DIASTOLIC (CONGESTIVE) HEART FAROOQ 11/15/2019 VERONICA LAU FACC, ALI FACP CCDS Ot J43.8 OTHER EMPHYSEMA 11/15/2019 VERONICA LAU FACC, ALI FACP CCDS Ot Z72.0 TOBACCO USE 11/15/2019 DIALLO GONZÁLES MD Ot J44.9 CHRONIC OBSTRUCTIVE PULMONARY DISEASE, U 11/15/2019 BLAKE LAU, ADINA Mullins Ot R06.0 2 SHORTNESS OF BREATH 11/15/2019 NIVIA LAU, DIALLO S Ot J44.9 CHRONIC OBSTRUCTIVE PULMONARY DISEASE, U 11/15/2019 RONNY BENEDICT MD, Ot T21.25XA BURN OF SECOND DEGREE OF BUTTOCK, INITIA 11/15/2019 RONNY BENEDICT MD Ot T24.212A BURN OF SECOND DEGREE OF LEFT THIGH, INI 11/15/2019 RONNY BENEDICT MD, Ot T65.292A TOXIC EFFECT OF TOBACCO AND NICOTINE, SE 11/15/2019 RONNY BENEDICT MD Ot X12.XXXA CONTACT WITH OTHER HOT FLUIDS, INITIAL E 11/15/2019 RONNY BENEDICT MD Ot Y93.G 3 ACTIVITY, COOKING AND BAKING 11/15/2019 ECTOR DORSEY APRN Ot T21.25XA BURN OF SECOND DEGREE OF BUTTOCK, INITIA 11/15/2019 ECTOR DORSEY APRN Ot T24.212A BURN OF SECOND DEGREE OF LEFT THIGH, INI 11/15/2019 ECTOR DORSEY APRN Ot T65.292A TOXIC EFFECT OF TOBACCO AND NICOTINE, SE 11/15/2019 ECTOR DORSEY APRN Ot X12.XXXA CONTACT WITH OTHER HOT FLUIDS, INITIAL E 11/15/2019 ECTOR DORSEY APRN Ot Y93.G3 ACTIVITY, COOKING AND BAKING 11/15/2019 OBINNA PRASAD MD Ot M81 .0 AGE-RELATED OSTEOPOROSIS W/O CURRENT PAT 11/15/2019 OBINNA PRASAD MD Ot Z12.31 ENCNTR SCREEN MAMMOGRAM FOR MALIGNANT NE 11/15/2019 OBINNA PRASAD MD Ot Z12.31 ENCNTR SCREEN MAMMOGRAM FOR MALIGNANT NE 11/15/2019 MERRITT VALENZUELA DO Ot E27.8 OTHER SPECIFIED DISORDERS OF ADRENAL GLA 11/15/2019 MERRITT VALENZUELA DO Ot E55.9 VITAMIN D DEFICIENCY, UNSPECIFIED 11/15/2019 MERRITT VALENZUELA DO Ot E87.1 HYPO-OSMOLALITY AND HYPONATREMIA 11/15/2019 JOVANA HULL MD Ot I65.22 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 11/15/2019 JOVANA HULL MD Ot J38 .7 OTHER DISEASES OF LARYNX 11/15/2019 JOVANA HULL MD Ot R59 .0 LOCALIZED ENLARGED LYMPH NODES 11/15/[address] [facility] CCDS Ot I11.9 HYPERTENSIVE HEART DISEASE WITHOUT HEART 11/15/[address] [facility] CCDS Ot I25.10 ATHSCL HEART DISEASE OF [place] CORONARY 11/15/[address] [facility] CCDS Ot I48.0 PAROXYSMAL ATRIAL FIBRILLATION 11/15/2019 JOVANA HULL MD Ot C32 .1 MALIGNANT NEOPLASM OF SUPRAGLOTTIS 11/15/2019 JOVANA HULL MD Ot R94 .8 ABNORMAL RESULTS OF FUNCTION STUDIES OF 11/15/2019 REZA LAU, JENNIFER Rucker Ot C32.1 MALIGNANT NEOPLASM OF SUPRAGLOTTIS 11/15/2019 OBINNA PRASAD MD Ot I65.23 OCCLUSION AND STENOSIS OF BILATERAL [place] 11/15/2019 OBINNA PRASAD MD Ot R13.13 DYSPHAGIA, PHARYNGEAL PHASE 11/15/2019 OBINNA PRASAD MD Ot R22 .1 LOCALIZED SWELLING, MASS AND LUMP, NECK 11/15/2019 JOVANA HULL MD Ot C32 .9 MALIGNANT NEOPLASM OF LARYNX, UNSPECIFIE 11/15/2019 JOVANA HULL MD Ot J31 .2 CHRONIC PHARYNGITIS 11/15/2019 JOVANA HULL MD Ot Z92 .3 PERSONAL HISTORY OF IRRADIATION 12/04/2019 Ot 458.9 HYPO TENSION NOS 12/04/2019 RICHELLE LAU, SHAYY Burnett Ot 789.30 ABDOMINAL/PELVIC SWELLING,MASS/LUMP UNSP 12/04/2019 RICHELLE LAU, SHAYY Burnett Ot 255.9 ADRENAL DISORDER N0S 12/04/2019 SHAYY PEOPLES MD Ot 789.30 ABDOMINAL/PELVIC SWELLING,MASS/LUMP UNSP 12/04/2019 LELE HUGHES MD Ot 338. 4 CHRONIC PAIN SYNDROME 12/04/2019 LELE HUGHES MD Ot 721. 3 LUMBOSACRAL SPONDYLOSIS 12/04/2019 LELE HUGHES MD Ot 722. 52 LUMB/LUMBOSAC DISC DEGEN 12/04/2019 LELE HUGHES MD Ot 729. 1 MYALGIA AND MYOSITIS NOS 12/04/2019 LELE HUGHES MD Ot V58. 69 OTH MED,LT,CURRENT USE 12/04/2019 OBINNA PRASAD MD Ot 921 .0 BLACK EYE NOS 12/04/2019 OBINNA PRASAD MD Ot 959.01 HEAD INJURY, NOS 12/04/2019 OBINNA PRASAD MD Ot E000.8 OTHER EXTERNAL CAUSE STATUS 12/04/2019 OBINNA PRASAD MD Ot E849.0 ACCIDENT IN HOME 12/04/2019 OBINNA PRASAD MD Ot E917.3 FURNIT W/O SUB FALL 12/04/2019 LELE HUGHES MD Ot 724. 02 SPINAL STENOSIS, LUMBAR REG, W/OUT NEURO 12/04/2019 LELE HUGHES MD Ot 733. 13 PATHOLOGIC FRACTURE, VERTEBRAE 12/04/2019 OBINNA PRASAD MD Ot 255 .9 ADRENAL DISORDER N0S 12/04/2019 OBINNA PRASAD MD Ot 244 .9 HYPOTHYROIDISM NOS 12/04/2019 OBINNA PRASAD MD Ot 401 .9 HYPERTENSION NOS 12/04/2019 JOVANA HULL MD Ot 388.70 OTALGIA NOS 12/04/2019 JOVANA HULL MD P Ot 462 ACUTE PHARYNGITIS 12/04/2019 JOVANA HULL MD Ot 478 .5 VOCAL CORD DISEASE NEC 12/04/2019 OBINNA PRASAD MD Ot J18 .9 PNEUMONIA, UNSPECIFIED ORGANISM 12/04/2019 MERRITT VALENZUELA DO Ot D35.00 BENIGN NEOPLASM OF UNSPECIFIED ADRENAL G 12/04/2019 OBINNA PRASAD MD Ot R91 .8 OTHER NONSPECIFIC ABNORMAL FINDING OF SUSAN 12/04/2019 VERONICA LAU FACC, ALI FACP CCDS Ot D35.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 12/04/2019 VERONICA LAU FACC, ALI FACP CCDS Ot E87.1 HYPO-OSMOLALITY AND HYPONATREMIA 12/04/2019 VERONICA LAU FACC, ALI FACP CCDS Ot I10 ESSENTIAL (PRIMARY) HYPERTENSION 12/04/2019 VERONICA LAU FACC, ALI FACP CCDS Ot I48.0 PAROXYSMAL ATRIAL FIBRILLATION 12/04/2019 VERONICA LAU FACC, ALI FACP CCDS Ot I50.32 CHRONIC DIASTOLIC (CONGESTIVE) HEART FAROOQ 12/04/2019 VERONICA LAU FACC, ALI FACP CCDS Ot J43.8 OTHER EMPHYSEMA 12/04/2019 VERONICA LAU FAC, ALI FACP CCDS Ot Z72.0 TOBACCO USE 12/04/2019 NIVIA LAU, DIALLO S Ot J44.9 CHRONIC OBSTRUCTIVE PULMONARY DISEASE, U 12/04/2019 BLAKE LAU, ADINA Mullins Ot R06.0 2 SHORTNESS OF BREATH 12/04/2019 NIVIA LAU, DIALLO S Ot J44.9 CHRONIC OBSTRUCTIVE PULMONARY DISEASE, U 12/04/2019 RONNY BENEDICT MD Ot T21.25XA BURN OF SECOND DEGREE OF BUTTOCK, INITIA 12/04/2019 RONNY BENEDICT MD Ot T24.212A BURN OF SECOND DEGREE OF LEFT THIGH, INI 12/04/2019 RONNY BENEDICT MD Ot T65.292A TOXIC EFFECT OF TOBACCO AND NICOTINE, SE 12/04/2019 RONNY BENEDICT MD Ot X12.XXXA CONTACT WITH OTHER HOT FLUIDS, INITIAL E 12/04/2019 RONNY BENEDICT MD Ot Y93.G 3 ACTIVITY, COOKING AND BAKING 12/04/2019 ECTOR DORSEY APRN Ot T21.25XA BURN OF SECOND DEGREE OF BUTTOCK, INITIA 12/04/2019 ECTOR DORSEY APRN Ot T24.212A BURN OF SECOND DEGREE OF LEFT THIGH, INI 12/04/2019 ECTOR DORSEY APRN Ot T65.292A TOXIC EFFECT OF TOBACCO AND NICOTINE, SE 12/04/2019 ECTOR DORSEY APRN Ot X12.XXXA CONTACT WITH OTHER HOT FLUIDS, INITIAL E 12/04/2019 ECTOR DORSEY APRN Ot Y93.G3 ACTIVITY, COOKING AND BAKING 12/04/2019 OBINNA PRASAD MD Ot M81 .0 AGE-RELATED OSTEOPOROSIS W/O CURRENT PAT 12/04/2019 OBINNA PRASAD MD Ot Z12.31 ENCNTR SCREEN MAMMOGRAM FOR MALIGNANT NE 12/04/2019 OBINNA PRASAD MD Ot Z12.31 ENCNTR SCREEN MAMMOGRAM FOR MALIGNANT NE 12/04/2019 MERRITT VALENZUELA DO Ot E27.8 OTHER SPECIFIED DISORDERS OF ADRENAL GLA 12/04/2019 MERRITT VALENZUELA DO Ot E55.9 VITAMIN D DEFICIENCY, UNSPECIFIED 12/04/2019 MERRITT VALENZUELA DO Ot E87.1 HYPO-OSMOLALITY AND HYPONATREMIA 12/04/2019 JOVANA HULL MD Ot I65.22 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 12/04/2019 JOVANA HULL MD Ot J38 .7 OTHER DISEASES OF LARYNX 12/04/2019 JOVANA HULL MD Ot R59 .0 LOCALIZED ENLARGED LYMPH NODES 12/04/[address] [facility] CCDS Ot I11.9 HYPERTENSIVE HEART DISEASE WITHOUT HEART 12/04/[address] [facility] CCDS Ot I25.10 ATHSCL HEART DISEASE OF [place] CORONARY 12/04/[address] [facility] CCDS Ot I48.0 PAROXYSMAL ATRIAL FIBRILLATION 12/04/2019 JOVANA HULL MD Ot C32 .1 MALIGNANT NEOPLASM OF SUPRAGLOTTIS 12/04/2019 JOVANA HULL MD Ot R94 .8 ABNORMAL RESULTS OF FUNCTION STUDIES OF 12/04/2019 JENNIFER COBB MD Ot C32.1 MALIGNANT NEOPLASM OF SUPRAGLOTTIS 12/04/2019 OBINNA PRASAD MD Ot I65.23 OCCLUSION AND STENOSIS OF BILATERAL [place]RE[place] 12/04/2019 OBINNA PRASAD MD Ot R13.13 DYSPHAGIA, PHARYNGEAL PHASE 12/04/2019 OBINNA PRASAD MD Ot R22 .1 LOCALIZED SWELLING, MASS AND LUMP, NECK 12/04/2019 JOVANA HULL MD Ot C32 .9 MALIGNANT NEOPLASM OF LARYNX, UNSPECIFIE 12/04/2019 JOVANA HULL MD Ot J31 .2 CHRONIC PHARYNGITIS 12/04/2019 JOVANA HULL MD Ot Z92 .3 PERSONAL HISTORY OF IRRADIATION 12/05/2019 Ot 458.9 HYPO TENSION NOS 12/05/2019 SHAYY PEOPLES MD Ot 789.30 ABDOMINAL/PELVIC SWELLING,MASS/LUMP UNSP 12/05/2019 SHAYY PEOPLES MD Ot 255.9 ADRENAL DISORDER N0S 12/05/2019 SHAYY PEOPLES MD Ot 789.30 ABDOMINAL/PELVIC SWELLING,MASS/LUMP UNSP 12/05/2019 LELE HUGHES MD Ot 338. 4 CHRONIC PAIN SYNDROME 12/05/2019 LELE HUGHES MD Ot 721. 3 LUMBOSACRAL SPONDYLOSIS 12/05/2019 LELE HUGHES MD Ot 722. 52 LUMB/LUMBOSAC DISC DEGEN 12/05/2019 LELE HUGHES MD Ot 729. 1 MYALGIA AND MYOSITIS NOS 12/05/2019 LELE HUGHES MD Ot V58. 69 OTH MED,LT,CURRENT USE 12/05/2019 OBINNA PRASAD MD Ot 921 .0 BLACK EYE NOS 12/05/2019 OBINNA PRASAD MD Ot 959.01 HEAD INJURY, NOS 12/05/2019 OBINNA PRASAD MD Ot E000.8 OTHER EXTERNAL CAUSE STATUS 12/05/2019 OBINNA PRASAD MD Ot E849.0 ACCIDENT IN HOME 12/05/2019 OBINNA PRASAD MD Ot E917.3 FURNIT W/O SUB FALL 12/05/2019 LELE HUGHES MD Ot 724. 02 SPINAL STENOSIS, LUMBAR REG, W/OUT NEURO 12/05/2019 LELE HUGHES MD Ot 733. 13 PATHOLOGIC FRACTURE, VERTEBRAE 12/05/2019 OBINNA PRASAD MD Ot 255 .9 ADRENAL DISORDER N0S 12/05/2019 OBINNA PRASAD MD Ot 244 .9 HYPOTHYROIDISM NOS 12/05/2019 OBINNA PRASAD MD Ot 401 .9 HYPERTENSION NOS 12/05/2019 JOVANA HULL MD Ot 388.70 OTALGIA NOS 12/05/2019 JOVANA HULL MD Ot 462 ACUTE PHARYNGITIS 12/05/2019 JOVANA HULL MD Ot 478 .5 VOCAL CORD DISEASE NEC 12/05/2019 OBINNA PRASAD MD Ot J18 .9 PNEUMONIA, UNSPECIFIED ORGANISM 12/05/2019 MERRITT VALENZUELA DO L Ot D35.00 BENIGN NEOPLASM OF UNSPECIFIED ADRENAL G 12/05/2019 OBINNA PRASAD MD Ot R91 .8 OTHER NONSPECIFIC ABNORMAL FINDING OF SUSAN 12/05/2019 VERONICA LAU FACC, ALI FACP CCDS Ot D35.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 12/05/2019 VERONICA LAU FACC, ALI FACP CCDS Ot E87.1 HYPO-OSMOLALITY AND HYPONATREMIA 12/05/2019 VERONICA LAU FACC, ALI FACP CCDS Ot I10 ESSENTIAL (PRIMARY) HYPERTENSION 12/05/2019 VERONICA LAU FACC, ALI FACP CCDS Ot I48.0 PAROXYSMAL ATRIAL FIBRILLATION 12/05/2019 VERONICA LAU FACC, ALI FACP CCDS Ot I50.32 CHRONIC DIASTOLIC (CONGESTIVE) HEART FAROOQ 12/05/2019 VERONICA LAU FAC, ALI FACP CCDS Ot J43.8 OTHER EMPHYSEMA 12/05/2019 VERONICA LAU FAC, ALI FACP CCDS Ot Z72.0 TOBACCO USE 12/05/2019 NIVIA LAU, DIALLO S Ot J44.9 CHRONIC OBSTRUCTIVE PULMONARY DISEASE, U 12/05/2019 ADINA LOZANO MD Ot R06.0 2 SHORTNESS OF BREATH 12/05/2019 NIVIA LAU, DIALLO S Ot J44.9 CHRONIC OBSTRUCTIVE PULMONARY DISEASE, U 12/05/2019 RONNY BENEDICT MD Ot T21.25XA BURN OF SECOND DEGREE OF BUTTOCK, INITIA 12/05/2019 RONNY BENEDICT MD, Ot T24.212A BURN OF SECOND DEGREE OF LEFT THIGH, INI 12/05/2019 RONNY BENEDICT MD, Ot T65.292A TOXIC EFFECT OF TOBACCO AND NICOTINE, SE 12/05/2019 RONNY BENEDICT MD Ot X12.XXXA CONTACT WITH OTHER HOT FLUIDS, INITIAL E 12/05/2019 RONNY BENEDICT MD Ot Y93.G 3 ACTIVITY, COOKING AND BAKING 12/05/2019 ECTOR DORSEY APRN Ot T21.25XA BURN OF SECOND DEGREE OF BUTTOCK, INITIA 12/05/2019 ECTOR DORSEY APRN Ot T24.212A BURN OF SECOND DEGREE OF LEFT THIGH, INI 12/05/2019 ECTOR DORSEY APRN Ot T65.292A TOXIC EFFECT OF TOBACCO AND NICOTINE, SE 12/05/2019 ECTOR DORSEY APRN Ot X12.XXXA CONTACT WITH OTHER HOT FLUIDS, INITIAL E 12/05/2019 ECTOR DORSEY APRN Ot Y93.G3 ACTIVITY, COOKING AND BAKING 12/05/2019 OBINNA PRASAD MD Ot M81 .0 AGE-RELATED OSTEOPOROSIS W/O CURRENT PAT 12/05/2019 OBINNA PRASAD MD Ot Z12.31 ENCNTR SCREEN MAMMOGRAM FOR MALIGNANT NE 12/05/2019 OBINNA PRASAD MD Ot Z12.31 ENCNTR SCREEN MAMMOGRAM FOR MALIGNANT NE 12/05/2019 MERRITT VALENZUELA DO Ot E27.8 OTHER SPECIFIED DISORDERS OF ADRENAL GLA 12/05/2019 MERRITT VALENZUELA DO Ot E55.9 VITAMIN D DEFICIENCY, UNSPECIFIED 12/05/2019 BIANCA BAER, MERRITT Lex Ot E87.1 HYPO-OSMOLALITY AND HYPONATREMIA 12/05/2019 JOVANA HULL MD Ot I65.22 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 12/05/2019 JOVANA HULL MD Ot J38 .7 OTHER DISEASES OF LARYNX 12/05/2019 JOVANA HULL MD Ot R59 .0 LOCALIZED ENLARGED LYMPH NODES 12/05/[address] [facility], ALI F[facility] CCDS Ot I11.9 HYPERTENSIVE HEART DISEASE WITHOUT HEART 12/05/[address] [facility], [facility]I [facility] CCDS Ot I25.10 ATHSCL HEART DISEASE OF [place] CORONARY 12/05/[address] [facility] CCDS Ot I48.0 PAROXYSMAL ATRIAL FIBRILLATION 12/05/2019 JOVANA HULL MD Ot C32 .1 MALIGNANT NEOPLASM OF SUPRAGLOTTIS 12/05/2019 JOVANA HULL MD Ot R94 .8 ABNORMAL RESULTS OF FUNCTION STUDIES OF 12/05/2019 REZA LAU, JENNIFER Rucker Ot C32.1 MALIGNANT NEOPLASM OF SUPRAGLOTTIS 12/05/2019 OBINNA PRASAD MD Ot I65.23 OCCLUSION AND STENOSIS OF BILATERAL [place] 12/05/2019 OBINNA PRASAD MD Ot R13.13 DYSPHAGIA, PHARYNGEAL PHASE 12/05/2019 OBINNA PRASAD MD Ot R22 .1 LOCALIZED SWELLING, MASS AND LUMP, NECK 12/05/2019 JOVANA HULL MD Ot C32 .9 MALIGNANT NEOPLASM OF LARYNX, UNSPECIFIE 12/05/2019 JOVANA HULL MD Ot J31 .2 CHRONIC PHARYNGITIS 12/05/2019 JOVANA HULL MD Ot Z92 .3 PERSONAL HISTORY OF IRRADIATION 12/05/2019 Ot 458.9 HYPO TENSION NOS 12/05/2019 RICHELLE LAU, SHAYY Burnett Ot 789.30 ABDOMINAL/PELVIC SWELLING,MASS/LUMP UNSP 12/05/2019 SHAYY PEOPLES MD Ot 255.9 ADRENAL DISORDER N0S 12/05/2019 SHAYY PEOPLES MD Ot 789.30 ABDOMINAL/PELVIC SWELLING,MASS/LUMP UNSP 12/05/2019 LELE HUGHES MD Ot 338. 4 CHRONIC PAIN SYNDROME 12/05/2019 LELE HUGHES MD Ot 721. 3 LUMBOSACRAL SPONDYLOSIS 12/05/2019 LELE HUGHES MD Ot 722. 52 LUMB/LUMBOSAC DISC DEGEN 12/05/2019 LELE HUGHES MD Ot 729. 1 MYALGIA AND MYOSITIS NOS 12/05/2019 LELE HUGHES MD Ot V58. 69 OTH MED,LT,CURRENT USE 12/05/2019 OBINNA PRASAD MD Ot 921 .0 BLACK EYE NOS 12/05/2019 OBINNA PRASAD MD Ot 959.01 HEAD INJURY, NOS 12/05/2019 OBINNA PRASAD MD Ot E000.8 OTHER EXTERNAL CAUSE STATUS 12/05/2019 OBINNA PRASAD MD Ot E849.0 ACCIDENT IN HOME 12/05/2019 OBINNA PRASAD MD Ot E917.3 FURNIT W/O SUB FALL 12/05/2019 LELE HUGHES MD Ot 724. 02 SPINAL STENOSIS, LUMBAR REG, W/OUT NEURO 12/05/2019 LELE HUGHES MD Ot 733. 13 PATHOLOGIC FRACTURE, VERTEBRAE 12/05/2019 OBINNA PRASAD MD Ot 255 .9 ADRENAL DISORDER N0S 12/05/2019 OBINNA PRASAD MD Ot 244 .9 HYPOTHYROIDISM NOS 12/05/2019 OBINNA PRASAD MD Ot 401 .9 HYPERTENSION NOS 12/05/2019 JOVANA HULL MD Ot 388.70 OTALGIA NOS 12/05/2019 JOVANA HULL MD Ot 462 ACUTE PHARYNGITIS 12/05/2019 JOVANA HULL MD Ot 478 .5 VOCAL CORD DISEASE NEC 12/05/2019 OBINNA PRASAD MD Ot J18 .9 PNEUMONIA, UNSPECIFIED ORGANISM 12/05/2019 MERRITT VALENZUELA DO Ot D35.00 BENIGN NEOPLASM OF UNSPECIFIED ADRENAL G 12/05/2019 OBINNA PRASAD MD Ot R91 .8 OTHER NONSPECIFIC ABNORMAL FINDING OF SUSAN 12/05/2019 VERONICA LAU FACC, ALI FACP CCDS Ot D35.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 12/05/2019 VERONICA LAU FACC, ALI FACP CCDS Ot E87.1 HYPO-OSMOLALITY AND HYPONATREMIA 12/05/2019 VERONICA LAU FACC, ALI FACP CCDS Ot I10 ESSENTIAL (PRIMARY) HYPERTENSION 12/05/2019 VERONICA LAU FACC, ALI FACP CCDS Ot I48.0 PAROXYSMAL ATRIAL FIBRILLATION 12/05/2019 VERONICA LAU FACC, ALI FACP CCDS Ot I50.32 CHRONIC DIASTOLIC (CONGESTIVE) HEART FAROOQ 12/05/2019 VERONICA LAU FACC, ALI FACP CCDS Ot J43.8 OTHER EMPHYSEMA 12/05/2019 VERONICA LAU FACC, ALI FACP CCDS Ot Z72.0 TOBACCO USE 12/05/2019 NIVIA LAU, DIALLO S Ot J44.9 CHRONIC OBSTRUCTIVE PULMONARY DISEASE, U 12/05/2019 BLAKE LAU, ADINA R Ot R06.0 2 SHORTNESS OF BREATH 12/05/2019 NIVIA LAU, DIALLO S Ot J44.9 CHRONIC OBSTRUCTIVE PULMONARY DISEASE, U 12/05/2019 RONNY BENEDICT MD, Ot T21.25XA BURN OF SECOND DEGREE OF BUTTOCK, INITIA 12/05/2019 RONNY BENEDICT MD, Ot T24.212A BURN OF SECOND DEGREE OF LEFT THIGH, INI 12/05/2019 RONNY BENEDICT MD, Ot T65.292A TOXIC EFFECT OF TOBACCO AND NICOTINE, SE 12/05/2019 RONNY BENEDICT MD Ot X12.XXXA CONTACT WITH OTHER HOT FLUIDS, INITIAL E 12/05/2019 RONNY BENEDICT MD Ot Y93.G 3 ACTIVITY, COOKING AND BAKING 12/05/2019 ECTOR DORSEY APRN Ot T21.25XA BURN OF SECOND DEGREE OF BUTTOCK, INITIA 12/05/2019 ECTOR DORSEY APRN Ot T24.212A BURN OF SECOND DEGREE OF LEFT THIGH, INI 12/05/2019 ECTOR DORSEY APRN Ot T65.292A TOXIC EFFECT OF TOBACCO AND NICOTINE, SE 12/05/2019 ECTOR DORSEY APRN Ot X12.XXXA CONTACT WITH OTHER HOT FLUIDS, INITIAL E 12/05/2019 ECTOR DORSEY APRN Ot Y93.G3 ACTIVITY, COOKING AND BAKING 12/05/2019 OBINNA PRASAD MD Ot M81 .0 AGE-RELATED OSTEOPOROSIS W/O CURRENT PAT 12/05/2019 OBINNA PRASAD MD Ot Z12.31 ENCNTR SCREEN MAMMOGRAM FOR MALIGNANT NE 12/05/2019 OBINNA PRASAD MD, Ot Z12.31 ENCNTR SCREEN MAMMOGRAM FOR MALIGNANT NE 12/05/2019 MERRITT VALENZUELA DO Ot E27.8 OTHER SPECIFIED DISORDERS OF ADRENAL GLA 12/05/2019 VALENZUELA DO, MERRITT Burnett Ot E55.9 VITAMIN D DEFICIENCY, UNSPECIFIED 12/05/2019 VALENZUELA DO, MERRITT Burnett Ot E87.1 HYPO-OSMOLALITY AND HYPONATREMIA 12/05/2019 JOVANA HULL MD Ot I65.22 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 12/05/2019 JOVANA HULL MD Ot J38 .7 OTHER DISEASES OF LARYNX 12/05/2019 JOVANA HULL MD Ot R59 .0 LOCALIZED ENLARGED LYMPH NODES 12/05/[address] [facility] CCDS Ot I11.9 HYPERTENSIVE HEART DISEASE WITHOUT HEART 12/05/[address] [facility] CCDS Ot I25.10 ATHSCL HEART DISEASE OF [place] CORONARY 12/05/[address] [facility] CCDS Ot I48.0 PAROXYSMAL ATRIAL FIBRILLATION 12/05/2019 JOVANA HULL MD Ot C32 .1 MALIGNANT NEOPLASM OF SUPRAGLOTTIS 12/05/2019 JOVANA HULL MD Ot R94 .8 ABNORMAL RESULTS OF FUNCTION STUDIES OF 12/05/2019 REZA LAU, JENNIFER Rucker Ot C32.1 MALIGNANT NEOPLASM OF SUPRAGLOTTIS 12/05/2019 OBINNA PRASAD MD Ot I65.23 OCCLUSION AND STENOSIS OF BILATERAL [place]RE[place] 12/05/2019 OBINNA PRASAD MD Ot R13.13 DYSPHAGIA, PHARYNGEAL PHASE 12/05/2019 OBINNA PRASAD MD Ot R22 .1 LOCALIZED SWELLING, MASS AND LUMP, NECK 12/05/2019 JOVANA HULL MD Ot C32 .9 MALIGNANT NEOPLASM OF LARYNX, UNSPECIFIE 12/05/2019 JOVANA HULL MD Ot J31 .2 CHRONIC PHARYNGITIS 12/05/2019 JOVANA HULL MD Ot Z92 .3 PERSONAL HISTORY OF IRRADIATION 12/06/2019 BLU BARRERA MD Ot 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 4 CHRONIC PAIN SYNDROME 12/12/2019 LELE HUGHES MD Ot 721. 3 LUMBOSACRAL SPONDYLOSIS 12/12/2019 LELE HUGHES MD Ot 722. 52 LUMB/LUMBOSAC DISC DEGEN 12/12/2019 LELE HUGHES MD Ot 729. 1 MYALGIA AND MYOSITIS NOS 12/12/2019 LELE HUGHES MD Ot V58. 69 OTH MED,LT,CURRENT USE 12/12/2019 OBINNA PRASAD MD Ot 921 .0 BLACK EYE NOS 12/12/2019 OBINNA PRASAD MD Ot 959.01 HEAD INJURY, NOS 12/12/2019 OBINNA PRASAD MD Ot E000.8 OTHER EXTERNAL CAUSE STATUS 12/12/2019 OBINNA PRASAD MD Ot E849.0 ACCIDENT IN HOME 12/12/2019 OBINNA PRASAD MD Ot E917.3 FURNIT W/O SUB FALL 12/12/2019 LELE HUGHES MD Ot 724. 02 SPINAL STENOSIS, LUMBAR REG, W/OUT NEURO 12/12/2019 LLEE HUGHES MD Ot 733. 13 PATHOLOGIC FRACTURE, VERTEBRAE 12/12/2019 OBINNA PRASAD MD Ot 255 .9 ADRENAL DISORDER N0S 12/12/2019 OBINNA PRASAD MD Ot 244 .9 HYPOTHYROIDISM NOS 12/12/2019 OBINNA PRASAD MD Ot 401 .9 HYPERTENSION NOS 12/12/2019 JOVANA HULL MD Ot 388.70 OTALGIA NOS 12/12/2019 JOVANA HULL MD Ot 462 ACUTE PHARYNGITIS 12/12/2019 JOVANA HULL MD Ot 478 .5 VOCAL CORD DISEASE NEC 12/12/2019 OBINNA PRASAD MD Ot J18 .9 PNEUMONIA, UNSPECIFIED ORGANISM 12/12/2019 MERRITT VALENZUELA DO Ot D35.00 BENIGN NEOPLASM OF UNSPECIFIED ADRENAL G 12/12/2019 OBINNA PRASAD MD Ot R91 .8 OTHER NONSPECIFIC ABNORMAL FINDING OF SUSAN 12/12/2019 VERONICA LAU FACC, ALI [facility] CCDS Ot D35.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 12/12/[address] [facility], [facility]I [facility] CCDS Ot E87.1 HYPO-OSMOLALITY AND HYPONATREMIA 12/12/[address] [facility], [facility] CCDS Ot I10 ESSENTIAL (PRIMARY) HYPERTENSION 12/12/[address] [facility], [facility] CCDS Ot I48.0 PAROXYSMAL ATRIAL FIBRILLATION 12/12/[address] [facility], [facility] CCDS Ot I50.32 CHRONIC DIASTOLIC (CONGESTIVE) HEART FAROOQ 12/12/[address] [facility], [facility] CCDS Ot J43.8 OTHER EMPHYSEMA 12/12/[address] [facility], [facility] CCDS Ot Z72.0 TOBACCO USE 12/12/2019 NIVIA LAU, DIALLO S Ot J44.9 CHRONIC OBSTRUCTIVE PULMONARY DISEASE, U 12/12/2019 BLAKE LAU, ADINA Mullins Ot R06.0 2 SHORTNESS OF BREATH 12/12/2019 NIVIA LAU, DIALLO S Ot J44.9 CHRONIC OBSTRUCTIVE PULMONARY DISEASE, U 12/12/2019 RONNY BENEDICT MD Ot T21.25XA BURN OF SECOND DEGREE OF BUTTOCK, INITIA 12/12/2019 RONNY BENEDICT MD Ot T24.212A BURN OF SECOND DEGREE OF LEFT THIGH, INI 12/12/2019 RONNY BENEDICT MD Ot T65.292A TOXIC EFFECT OF TOBACCO AND NICOTINE, SE 12/12/2019 RONNY BENEDICT MD Ot X12.XXXA CONTACT WITH OTHER HOT FLUIDS, INITIAL E 12/12/2019 RONNY BENEDICT MD Ot Y93.G 3 ACTIVITY, COOKING AND BAKING 12/12/2019 ECTOR DORSEY APRN Ot T21.25XA BURN OF SECOND DEGREE OF BUTTOCK, INITIA 12/12/2019 ECTOR DORSEY SAWMILL TALLY CLERK Ot T24.212A BURN OF SECOND DEGREE OF LEFT THIGH, INI 12/12/2019 ECTOR DORSEY APRN Ot T65.292A TOXIC EFFECT OF TOBACCO AND NICOTINE, SE 12/12/2019 ECTOR DORSEY APRN Ot X12.XXXA CONTACT WITH OTHER HOT FLUIDS, INITIAL E 12/12/2019 ECTOR DORSEY SAWMILL TALLY CLERK Ot Y93.G3 ACTIVITY, COOKING AND BAKING 12/12/2019 SHANICEOBINNA GARNICA MD, Ot M81 .0 AGE-RELATED OSTEOPOROSIS W/O CURRENT PAT 12/12/2019 OBINNA PRASAD MD, Ot Z12.31 ENCNTR SCREEN MAMMOGRAM FOR MALIGNANT NE 12/12/2019 OBINNA PRASAD MD, Ot Z12.31 ENCNTR SCREEN MAMMOGRAM FOR MALIGNANT NE 12/12/2019 BIANCA BAER, MERRITT L Ot E27.8 OTHER SPECIFIED DISORDERS OF ADRENAL GLA 12/12/2019 VALENZUELA , MERRITT L Ot E55.9 VITAMIN D DEFICIENCY, UNSPECIFIED 12/12/2019 VALENZUELA , MERRITT L Ot E87.1 HYPO-OSMOLALITY AND HYPONATREMIA 12/12/2019 JOVANA HULL MD Ot I65.22 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 12/12/2019 JOVANA HULL MD Ot J38 .7 OTHER DISEASES OF LARYN[place] 12/12/2019 JOVANA HULL MD Ot R59 .0 LOCALIZED ENLARGED LYMPH NODES 12/12/2019 VERONICA LAU FAC, ALI FACP CCDS Ot I11.9 HYPERTENSIVE HEART DISEASE WITHOUT HEART 12/12/2019 VERONICA LAU FAC, ALI FACP CCDS Ot I25.10 ATHSCL HEART DISEASE OF [place] CORONARY 12/12/2019 VERONICA LAU FAC, ALI FACP CCDS Ot I48.0 PAROXYSMAL ATRIAL FIBRILLATION 12/12/2019 JOVANA HULL MD Ot C32 .1 MALIGNANT NEOPLASM OF SUPRAGLOTTIS 12/12/2019 JOVANA HULL MD Ot R94 .8 ABNORMAL RESULTS OF FUNCTION STUDIES OF 12/12/2019 REZA LAU, JENNIFER Rucker Ot C32.1 MALIGNANT NEOPLASM OF SUPRAGLOTTIS 12/12/2019 OBINNA PRASAD MD Ot I65.23 OCCLUSION AND STENOSIS OF BILATERAL [place] 12/12/2019 OBINNA PRASAD MD Ot R13.13 DYSPHAGIA, PHARYNGEAL PHASE 12/12/2019 OBINNA PRASAD MD, Ot R22 .1 LOCALIZED SWELLING, MASS AND LUMP, NECK 12/12/2019 JOVANA HULL MD Ot C32 .9 MALIGNANT NEOPLASM OF L[place], UNSPECIFIE 12/12/2019 JOVANA HULL MD Ot J31 .2 CHRONIC PHARYNGITIS 12/12/2019 JOVANA HULL MD Ot Z92 .3 PERSONAL HISTORY OF IRRADIATION 12/12/2019 BLU BARRERA MD Ot 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 4 CHRONIC PAIN SYNDROME 12/13/2019 LELE HUGHES MD Ot 721. 3 LUMBOSACRAL SPONDYLOSIS 12/13/2019 LELE HUGHES MD Ot 722. 52 LUMB/LUMBOSAC DISC DEGEN 12/13/2019 LELE HUGHES MD Ot 729. 1 MYALGIA AND MYOSITIS NOS 12/13/2019 LELE HUGHES MD Ot V58. 69 OTH MED,LT,CURRENT USE 12/13/2019 OBINNA PRASAD MD Ot 921 .0 BLACK EYE NOS 12/13/2019 OBINNA PRASAD MD Ot 959.01 HEAD INJURY, NOS 12/13/2019 OBINNA PRASAD MD Ot E000.8 OTHER EXTERNAL CAUSE STATUS 12/13/2019 OBINNA PRASAD MD Ot E849.0 ACCIDENT IN HOME 12/13/2019 OBINNA PRASAD MD Ot E917.3 FURNIT W/O SUB FALL 12/13/2019 LELE HUGHES MD Ot 724. 02 SPINAL STENOSIS, LUMBAR REG, W/OUT NEURO 12/13/2019 LELE HUGHES MD Ot 733. 13 PATHOLOGIC FRACTURE, VERTEBRAE 12/13/2019 OBINNA PRASAD MD Ot 255 .9 ADRENAL DISORDER N0S 12/13/2019 OBINNA PRASAD MD Ot 244 .9 HYPOTHYROIDISM NOS 12/13/2019 OBINNA PRASAD MD Ot 401 .9 HYPERTENSION NOS 12/13/2019 JOVANA HULL MD Ot 388.70 OTALGIA NOS 12/13/2019 JOVANA HULL MD Ot 462 ACUTE PHARYNGITIS 12/13/2019 JOVANA HULL MD Ot 478 .5 VOCAL CORD DISEASE NEC 12/13/2019 OBINNA PRASAD MD Ot J18 .9 PNEUMONIA, UNSPECIFIED ORGANISM 12/13/2019 BIANCA DO, MERRITT L Ot D35.00 BENIGN NEOPLASM OF UNSPECIFIED ADRENAL G 12/13/2019 OBINNA PRASAD MD Ot R91 .8 OTHER NONSPECIFIC ABNORMAL FINDING OF [place] 12/13/2019 VERONICA LAU FAC, ALI FACP CCDS Ot D35.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 12/13/2019 VERONICA LAU FAC, ALI FACP CCDS Ot E87.1 HYPO-OSMOLALITY AND HYPONATREMIA 12/13/2019 VERONICA LAU FAC, ALI FACP CCDS Ot I10 ESSENTIAL (PRIMARY) HYPERTENSION 12/13/2019 VERONICA LAU FAC, ALI FACP CCDS Ot I48.0 PAROXYSMAL ATRIAL FIBRILLATION 12/13/2019 VERONICA LAU FAC, ALI FACP CCDS Ot I50.32 CHRONIC DIASTOLIC (CONGESTIVE) HEART FAROOQ 12/13/2019 VERONICA LAU FAC, ALI FACP CCDS Ot J43.8 OTHER EMPHYSEMA 12/13/[address] [facility], ALI FACP CCDS Ot Z72.0 TOBACCO USE 12/13/2019 NIVIA LAU, DIALLO S Ot J44.9 CHRONIC OBSTRUCTIVE PULMONARY DISEASE, U 12/13/2019 ADINA LOZANO MD Ot R06.0 2 SHORTNESS OF BREATH 12/13/2019 DIALLO GONZÁLES MD S Ot J44.9 CHRONIC OBSTRUCTIVE PULMONARY DISEASE, U 12/13/2019 RONNY BENEDICT MD Ot T21.25XA BURN OF SECOND DEGREE OF BUTTOCK, INITIA 12/13/2019 RONNY BENEDICT MD Ot T24.212A BURN OF SECOND DEGREE OF LEFT THIGH, INI 12/13/2019 RONNY BENEDICT MD Ot T65.292A TOXIC EFFECT OF TOBACCO AND NICOTINE, SE 12/13/2019 RONNY BENEDICT MD Ot X12.XXXA CONTACT WITH OTHER HOT FLUIDS, INITIAL E 12/13/2019 RONNY BENEDICT MD Ot Y93.G 3 ACTIVITY, COOKING AND BAKING 12/13/2019 ECTOR DORSEY APRN Ot T21.25XA BURN OF SECOND DEGREE OF BUTTOCK, INITIA 12/13/2019 ECTOR DORSEY APRN Ot T24.212A BURN OF SECOND DEGREE OF LEFT THIGH, INI 12/13/2019 ECTOR DORSEY APRN Ot T65.292A TOXIC EFFECT OF TOBACCO AND NICOTINE, SE 12/13/2019 ECTOR DORSEY APRN Ot X12.XXXA CONTACT WITH OTHER HOT FLUIDS, INITIAL E 12/13/2019 ECTOR DORSEY APRN Ot Y93.G3 ACTIVITY, COOKING AND BAKING 12/13/2019 OBINNA PRASAD MD, Ot M81 .0 AGE-RELATED OSTEOPOROSIS W/O CURRENT PAT 12/13/2019 OBINNA PRASAD MD, Ot Z12.31 ENCNTR SCREEN MAMMOGRAM FOR MALIGNANT NE 12/13/2019 OBINNA PRASAD MD, Ot Z12.31 ENCNTR SCREEN MAMMOGRAM FOR MALIGNANT NE 12/13/2019 MERRITT VALENZUELA DO Ot E27.8 OTHER SPECIFIED DISORDERS OF ADRENAL GLA 12/13/2019 MERRITT VALENZUELA DO Ot E55.9 VITAMIN D DEFICIENCY, UNSPECIFIED 12/13/2019 MERRITT VALENZUELA DO Ot E87.1 HYPO-OSMOLALITY AND HYPONATREMIA 12/13/2019 JOVANA HULL MD Ot I65.22 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 12/13/2019 JOVANA HULL MD Ot J38 .7 OTHER DISEASES OF [place] 12/13/2019 JOVANA HULL MD Ot R59 .0 LOCALIZED ENLARGED LYMPH NODES 12/13/[address] [facility], ALI FACP CCDS Ot I11.9 HYPERTENSIVE HEART DISEASE WITHOUT HEART 12/13/[address] [facility], ALI FACP CCDS Ot I25.10 ATHSCL HEART DISEASE OF [place] CORONARY 12/13/[address] [facility], ALI FACP CCDS Ot I48.0 PAROXYSMAL ATRIAL FIBRILLATION 12/13/2019 JOVANA HULL MD Ot C32 .1 MALIGNANT NEOPLASM OF SUPRAGLOTTIS 12/13/2019 JOVANA HULL MD Ot R94 .8 ABNORMAL RESULTS OF FUNCTION STUDIES OF 12/13/2019 REZA LAU, JENNIFER Rucker Ot C32.1 MALIGNANT NEOPLASM OF SUPRAGLOTTIS 12/13/2019 OBINNA PRASAD MD Ot I65.23 OCCLUSION AND STENOSIS OF BILATERAL [place] 12/13/2019 OBINNA PRASAD MD Ot R13.13 DYSPHAGIA, PHARYNGEAL PHASE 12/13/2019 OBINNA PRASAD MD, Ot R22 .1 LOCALIZED SWELLING, MASS AND LUMP, NECK 12/13/2019 JOVANA HULL MD Ot C32 .9 MALIGNANT NEOPLASM OF LARYNX, UNSPECIFIE 12/13/2019 JOVANA HULL MD Ot J31 .2 CHRONIC PHARYNGITIS 12/13/2019 JOVANA HULL MD Ot Z92 .3 PERSONAL HISTORY OF IRRADIATION 12/13/2019 BLU BARRERA MD Ot 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 4 CHRONIC PAIN SYNDROME 12/14/2019 LELE HUGHES MD Ot 721. 3 LUMBOSACRAL SPONDYLOSIS 12/14/2019 LELE HUGHES MD Ot 722. 52 LUMB/LUMBOSAC DISC DEGEN 12/14/2019 LELE HUGHES MD Ot 729. 1 MYALGIA AND MYOSITIS NOS 12/14/2019 LELE HUGHES MD Ot V58. 69 OTH MED,LT,CURRENT USE 12/14/2019 OBINNA PRASAD MD Ot 921 .0 BLACK EYE NOS 12/14/2019 OBINNA PRASAD MD Ot 959.01 HEAD INJURY, NOS 12/14/2019 OBINNA PRASAD MD Ot E000.8 OTHER EXTERNAL CAUSE STATUS 12/14/2019 OBINNA PRASAD MD Ot E849.0 ACCIDENT IN HOME 12/14/2019 OBINNA PRASAD MD Ot E917.3 FURNIT W/O SUB FALL 12/14/2019 LELE HUGHES MD Ot 724. 02 SPINAL STENOSIS, LUMBAR REG, W/OUT NEURO 12/14/2019 LELE HUGHES MD Ot 733. 13 PATHOLOGIC FRACTURE, VERTEBRAE 12/14/2019 OBINNA PRASAD MD Ot 255 .9 ADRENAL DISORDER N0S 12/14/2019 OBINNA PRASAD MD Ot 244 .9 HYPOTHYROIDISM NOS 12/14/2019 OBINNA PRASAD MD Ot 401 .9 HYPERTENSION NOS 12/14/2019 JOVANA HULL MD Ot 388.70 OTALGIA NOS 12/14/2019 JOVANA HULL MD Ot 462 ACUTE PHARYNGITIS 12/14/2019 JOVANA HULL MD Ot 478 .5 VOCAL CORD DISEASE NEC 12/14/2019 OBINNA PRASAD MD Ot J18 .9 PNEUMONIA, UNSPECIFIED ORGANISM 12/14/2019 MERRITT VALENZUELA DO L Ot D35.00 BENIGN NEOPLASM OF UNSPECIFIED ADRENAL G 12/14/2019 OBINNA PRASAD MD Ot R91 .8 OTHER NONSPECIFIC ABNORMAL FINDING OF [place] 12/14/2019 VERONICA LAU FAC, ALI FACP CCDS Ot D35.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 12/14/2019 VERONICA LAU FACC, ALI FACP CCDS Ot E87.1 HYPO-OSMOLALITY AND HYPONATREMIA 12/14/2019 VERONICA LAU FACC, ALI FACP CCDS Ot I10 ESSENTIAL (PRIMARY) HYPERTENSION 12/14/2019 VERONICA LAU FACC, ALI FACP CCDS Ot I48.0 PAROXYSMAL ATRIAL FIBRILLATION 12/14/2019 VERONICA LAU FAC, ALI FACP CCDS Ot I50.32 CHRONIC DIASTOLIC (CONGESTIVE) HEART FAROOQ 12/14/2019 VERONICA LAU FACC, ALI FACP CCDS Ot J43.8 OTHER EMPHYSEMA 12/14/2019 VERONICA LAU FACC, ALI FACP CCDS Ot Z72.0 TOBACCO USE 12/14/2019 DIALLO GONZÁLES MD S Ot J44.9 CHRONIC OBSTRUCTIVE PULMONARY DISEASE, U 12/14/2019 ADINA LOZANO MD R Ot R06.0 2 SHORTNESS OF BREATH 12/14/2019 DIALLO GONZÁLES MD S Ot J44.9 CHRONIC OBSTRUCTIVE PULMONARY DISEASE, U 12/14/2019 RONNY BENEDICT MD Ot T21.25XA BURN OF SECOND DEGREE OF BUTTOCK, INITIA 12/14/2019 RONNY BENEDICT MD Ot T24.212A BURN OF SECOND DEGREE OF LEFT THIGH, INI 12/14/2019 RONNY BENEDICT MD Ot T65.292A TOXIC EFFECT OF TOBACCO AND NICOTINE, SE 12/14/2019 RONNY BENEDICT MD Ot X12.XXXA CONTACT WITH OTHER HOT FLUIDS, INITIAL E 12/14/2019 RONNY BENEDICT MD Ot Y93.G 3 ACTIVITY, COOKING AND BAKING 12/14/2019 ECTOR DORSEY APRN Ot T21.25XA BURN OF SECOND DEGREE OF BUTTOCK, INITIA 12/14/2019 ECTOR DORSEY APRN Ot T24.212A BURN OF SECOND DEGREE OF LEFT THIGH, INI 12/14/2019 ECTOR DORSEY APRN Ot T65.292A TOXIC EFFECT OF TOBACCO AND NICOTINE, SE 12/14/2019 ECTOR DORSEY APRN Ot X12.XXXA CONTACT WITH OTHER HOT FLUIDS, INITIAL E 12/14/2019 ECTOR DORSEY APRN Ot Y93.G3 ACTIVITY, COOKING AND BAKING 12/14/2019 OBINNA PRASAD MD, Ot M81 .0 AGE-RELATED OSTEOPOROSIS W/O CURRENT PAT 12/14/2019 OBINNA PRASAD MD Ot Z12.31 ENCNTR SCREEN MAMMOGRAM FOR MALIGNANT NE 12/14/2019 OBINNA PRASAD MD, Ot Z12.31 ENCNTR SCREEN MAMMOGRAM FOR MALIGNANT NE 12/14/2019 MERRITT VALENZUELA DO Ot E27.8 OTHER SPECIFIED DISORDERS OF ADRENAL GLA 12/14/2019 MERRITT VALENZUELA DO Ot E55.9 VITAMIN D DEFICIENCY, UNSPECIFIED 12/14/2019 MERRITT VALENZUELA DO Ot E87.1 HYPO-OSMOLALITY AND HYPONATREMIA 12/14/2019 JOVANA HULL MD Ot I65.22 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 12/14/2019 JOVANA HULL MD Ot J38 .7 OTHER DISEASES OF [place] 12/14/2019 JOVANA HULL MD Ot R59 .0 LOCALIZED ENLARGED LYMPH NODES 12/14/2019 VERONICA LAU FACC, TERRY MARIEP CCDS Ot I11.9 HYPERTENSIVE HEART DISEASE WITHOUT HEART 12/14/2019 VERONICA LAU FACC, TERRY MARIEP CCDS Ot I25.10 ATHSCL HEART DISEASE OF [place] CORONARY 12/14/2019 VERONICA LAU FACC, TERRY MILLER CCDS Ot I48.0 PAROXYSMAL ATRIAL FIBRILLATION 12/14/2019 JOVANA HULL MD Ot C32 .1 MALIGNANT NEOPLASM OF SUPRAGLOTTIS 12/14/2019 JOVANA HULL MD Ot R94 .8 ABNORMAL RESULTS OF FUNCTION STUDIES OF 12/14/2019 REZA LAU, JENNIFER Rucker Ot C32.1 MALIGNANT NEOPLASM OF SUPRAGLOTTIS 12/14/2019 OBINNA PRASAD MD Ot I65.23 OCCLUSION AND STENOSIS OF BILATERAL [place] 12/14/2019 OBINNA PRASAD MD Ot R13.13 DYSPHAGIA, PHARYNGEAL PHASE 12/14/2019 OBINNA PRASAD MD Ot R22 .1 LOCALIZED SWELLING, MASS AND LUMP, NECK 12/14/2019 JOVANA HULL MD Ot C32 .9 MALIGNANT NEOPLASM OF LARYNX, UNSPECIFIE 12/14/2019 JOVANA HULL MD Ot J31 .2 CHRONIC PHARYNGITIS 12/14/2019 JOVANA HULL MD Ot Z92 .3 PERSONAL HISTORY OF IRRADIATION 12/14/2019 BLU BARRERA MD Ot 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 Results Test Result Range Complete blood count (CBC) with automate d white blood cell (WBC) differential - 09/13/16 00:35 Blood leukocytes automated count (number/volume) 10.0 10*3/uL 4.3-11.0 Blood erythrocytes automated count (number/volume) 5.33 10*6/uL 4.35-5.85 Venous blood hemoglobin measurement (mass/volume) 15.0 g/dL 11.5-16.0 Blood hematocrit (volume fraction) 44 % 35-52 Automated erythrocyte mean corpuscular volume 82 [ foz_us] 80-99 Automated erythrocyte mean corpuscular h emoglobin (mass per erythrocyte) 28 pg 25-34 Automated erythrocyte mean corpuscular h emoglobin concentration measurement (mass/volume) 34 g/dL 32-36 Automated erythrocyte distribution width ratio 16. 6 % 10.0- 14.5 Automated blood platelet count (count/volume) 318 10*3/uL [...] 10*3 1.0-4.0 Blood monocytes automated count (number/volume) 0. 6 10*3 0.0-1.0 Automated eosinophil count 0.1 10*3/uL 0 .0-0.3 Automated blood basophil count (count/volume) 0.0 10*3/uL 0.0-0.1 Comprehensive metabolic panel - 09/13/16 00:35 Serum or plasma sodium measurement (moles/volume) 130 mmol/L 135-145 Serum or plasma potassium measurement (moles/volume) 4.3 mmol/L 3.6-5.0 Serum or plasma chloride measurement (moles/volume) 93 mmol/L 98-107 Carbon dioxide 24 mmol/L 21-32 Serum or plasma anion gap determination (moles/volume) 13 mmol/L 5-14 Serum or plasma urea nitrogen measurement (mass/volume ) 15 mg/dL 7-18 Serum or plasma creatinine measurement (mass/volume) 0.91 mg/dL 0.60-1.30 Serum or plasma urea nitrogen/creatinine mass ratio 16 NRG Serum or plasma creatinine measurement w ith calculation of estimated glomerular filtration rate > NRG Serum or plasma glucose measurement (mass/volume) 123 mg/dL 70-105 Serum or plasma calcium measurement (mass/volume) 9.3 mg/dL 8.5-10.1 Serum or plasma total bilirubin measurement (mass/volu me) 0.4 mg/dL 0.1-1.0 Serum or plasma alkaline phosphatase flores surement (enzymatic activity/volume) 105 U/L 40-136 Serum or plasma aspartate aminotransfera se measurement (enzymatic activity/volume) 16 U/L 5-34 Serum or plasma alanine aminotransferase measurement (enzymatic activity/volume) 21 U/L 0-55 Serum or plasma protein measurement (mass/volume) 7.2 g/dL 6.4-8.2 Serum or plasma albumin measurement (mass/volume) 4.6 g/dL 3.2-4.5 Magnesium - 01/02/17 00:35 Magnesium 2.5 mg/dL 1.8-2.4 Serum or plasma lithium measurement (mol es/volume) - 09/13/16 00:35 BNP level 265.6 pg/mL <100.0 Fibrin D-dimer FEU measurement in platel et poor plasma (mass/volume) - 09/13/16 00:35 Fibrin D-dimer FEU measurement in platelet poor plasma (mass/volume) 0.32 ug/mL 0.00-0.49 Complete urinalysis with reflex to cultu re - 09/13/16 02:00 Urine color determination YELLOW NRG Urine clarity determination CLEAR NR G Urine pH measurement by test strip 7 5-9 Specific gravity of urine by test strip 1.010 1.016-1.022 Urine protein assay by test strip, semi-quantitative NEGATIVE NEGATIVE Urine glucose detection by automated test strip NE GATIVE NEGATIVE Erythrocytes detection in urine sediment by light micr oscopy 1+ NEGATIVE Urine ketones detection by automated test strip NE GATIVE NEGATIVE Urine nitrite detection by test strip NEGATIVE NEGATIVE Urine total bilirubin detection by test strip NEGA TIVE NEGATIVE Urine urobilinogen measurement by automated test strip (mass/volume) NORMAL NORMAL Urine leukocyte esterase detection by dipstick 1+ NEGATIVE Automated urine sediment erythrocyte cou nt by microscopy (number/high power field) RARE NRG Automated urine sediment leukocyte count by microscopy (number/high power field) RARE NRG Bacteria detection in urine sediment by light microsco py TRACE NRG Squamous epithelial cells detection in u rine sediment by light microscopy 2-5 NRG Crystals detection in urine sediment by light microsco py NONE NRG Casts detection in urine sediment by light microscopy NONE NRG Mucus detection in urine sediment by light microscopy NEGATIVE NRG Complete urinalysis with reflex to culture NO NRG Complete blood count (CBC) with automate d white blood cell (WBC) differential - 05/28/17 12:00 Blood leukocytes automated count (number/volume) 9.0 10*3/uL 4.3-11.0 Blood erythrocytes automated count (number/volume) 4.23 10*6/uL 4.35-5.85 Venous blood hemoglobin measurement (mass/volume) 11.7 g/dL 11.5-16.0 Blood hematocrit (volume fraction) 35 % 35-52 Automated erythrocyte mean corpuscular volume 83 [ foz_us] 80-99 Automated erythrocyte mean corpuscular h emoglobin (mass per erythrocyte) 28 pg 25-34 Automated erythrocyte mean corpuscular h emoglobin concentration measurement (mass/volume) 33 g/dL 32-36 Automated erythrocyte distribution width ratio 15. 2 % 10.0- 14.5 Automated blood platelet count (count/volume) 420 10*3/uL [...] 10*3 1.0-4.0 Blood monocytes automated count (number/volume) 0. 9 10*3 0.0-1.0 Automated eosinophil count 0.2 10*3/uL 0 .0-0.3 Automated blood basophil count (count/volume) 0.1 10*3/uL 0.0-0.1 Comprehensive metabolic panel - 05/28/17 12:00 Serum or plasma sodium measurement (moles/volume) 134 mmol/L 135-145 Serum or plasma potassium measurement (moles/volume) 4.0 mmol/L 3.6-5.0 Serum or plasma chloride measurement (moles/volume) 93 mmol/L 98-107 Carbon dioxide 31 mmol/L 21-32 Serum or plasma anion gap determination (moles/volume) 10 mmol/L 5-14 Serum or plasma urea nitrogen measurement (mass/volume ) 10 mg/dL 7-18 Serum or plasma creatinine measurement (mass/volume) 0.84 mg/dL 0.60-1.30 Serum or plasma urea nitrogen/creatinine mass ratio 12 NRG Serum or plasma creatinine measurement w ith calculation of estimated glomerular filtration rate > NRG Serum or plasma glucose measurement (mass/volume) 83 mg/dL 70-105 Serum or plasma calcium measurement (mass/volume) 8.6 mg/dL 8.5-10.1 Serum or plasma total bilirubin measurement (mass/volu me) 0.2 mg/dL 0.1-1.0 Serum or plasma alkaline phosphatase flores surement (enzymatic activity/volume) 102 U/L 40-136 Serum or plasma aspartate aminotransfera se measurement (enzymatic activity/volume) 16 U/L 5-34 Serum or plasma alanine aminotransferase measurement (enzymatic activity/volume) 10 U/L 0-55 Serum or plasma protein measurement (mass/volume) 5.9 g/dL 6.4-8.2 Serum or plasma albumin measurement (mass/volume) 3.4 g/dL 3.2-4.5 Lipase - 05/28/17 12:00 Lipase 8 U/L 8-78 Gram stain microscopy - 05/28/17 12:32 GRAM STAIN RESULT FEW WBC'S, NO BACTERIA OBSERVED NRG Bacteria identification in wound by cult ure - 05/28/17 12:32 Bacteria identification in wound by culture NG NRG Complete urinalysis with reflex to cultu re - 05/28/17 12:45 Urine color determination YELLOW NRG Urine clarity determination CLEAR NR G Urine pH measurement by test strip 8 5-9 Specific gravity of urine by test strip 1.015 1.016-1.022 Urine protein assay by test strip, semi-quantitative NEGATIVE NEGATIVE Urine glucose detection by automated test strip NE GATIVE NEGATIVE Erythrocytes detection in urine sediment by light micr oscopy NEGATIVE NEGATIVE Urine ketones detection by automated test strip NE GATIVE NEGATIVE Urine nitrite detection by test strip NEGATIVE NEGATIVE Urine total bilirubin detection by test strip NEGA TIVE NEGATIVE Urine urobilinogen measurement by automated test strip (mass/volume) NORMAL NORMAL Urine leukocyte esterase detection by dipstick 1+ NEGATIVE Automated urine sediment erythrocyte cou nt by microscopy (number/high power field) RARE NRG Automated urine sediment leukocyte count by microscopy (number/high power field) RARE NRG Bacteria detection in urine sediment by light microsco py NEGATIVE NRG Squamous epithelial cells detection in u rine sediment by light microscopy 2-5 NRG Crystals detection in urine sediment by light microsco py NONE NRG Casts detection in urine sediment by light microscopy NONE NRG Mucus detection in urine sediment by light microscopy NEGATIVE NRG Complete urinalysis with reflex to culture NO NRG FERRITIN, SERUM - 06/07/17 10:59 Ferritin, Serum 20 ng/mL 15-150 Serum or plasma renal function panel (Na , K, Cl, CO2, BUN, Cr, glucose,Ca, phos, alb) - 08/22/17 12:33 Serum or plasma sodium measurement (moles/volume) 133 mmol/L 135-145 Serum or plasma potassium measurement (moles/volume) 4.3 mmol/L 3.6-5.0 Serum or plasma chloride measurement (moles/volume) 96 mmol/L 98-107 Carbon dioxide 28 mmol/L 21-32 Serum or plasma anion gap determination (moles/volume) 9 mmol/L 5-14 Serum or plasma urea nitrogen measurement (mass/volume ) 16 mg/dL 7-18 Serum or plasma creatinine measurement (mass/volume) 0.84 mg/dL 0.60-1.30 Serum or plasma urea nitrogen/creatinine mass ratio 19 NRG Serum or plasma creatinine measurement w ith calculation of estimated glomerular filtration rate > NRG Serum or plasma glucose measurement (mass/volume) 62 mg/dL 70-105 Serum or plasma calcium measurement (mass/volume) 8.7 mg/dL 8.5-10.1 Serum or plasma albumin measurement (mass/volume) 3.8 g/dL 3.2-4.5 Serum or plasma phosphate measurement (mass/volume) 3.4 mg/dL 2.3-4.7 VITAMIN D, 25-H - 05/11/18 10:27 VITAMIN D,25-OH,TOTAL,IA 36 ng/mL 30-10 0 FOLATE (FOLIC ACID) - 05/11/18 10:27 FOLATE, SERUM >24.0 ng/mL NRG VITAMIN B12 - 05/11/18 10:27 VITAMIN B12 710 pg/mL 200-1100 BMP - 05/30/18 09:18 GLUCOSE 93 mg/dL 65-99 UREA NITROGEN (BUN) 15 mg/dL 7-25 CREATININE 0.83 mg/dL 0.60-0.93 eGFR NON-AFR. [place] 70 mL/min/1.73m2 > OR = 60 eGFR 81 mL/min/1.73m2 > OR = 60 BUN/CREATININE RATIO NOT APPLICABLE (calc) 6-22 SODIUM 133 mmol/L 135-146 POTASSIUM 5.6 mmol/L 3.5-5.3 CHLORIDE 94 mmol/L 98-110 CARBON DIOXIDE 31 mmol/L 20-32 CALCIUM 9.3 mg/dL 8.6-10.4 Methicillin resistant Staphylococcus aur eus (MRSA) screening culture - 06/28/18 10:50 Methicillin resistant Staphylococcus aureus (MRSA) scr eening culture NEG NRG TSH - 07/20/18 10:03 TSH 2.74 mIU/L 0.40-4.50 PDM - PAIN MGMT (PROFILE 3 WITH CONFIRMA TION) - 11/07/18 11:24 Prescribed Drug 1 Morphine NRG Creatinine 23.1 mg/dL > or = 20.0 pH 7.67 4.5 - 9.0 Oxidant NEGATIVE mcg/mL <200 Amphetamines NEGATIVE ng/mL <500 medMATCH Amphetamines CONSISTENT NRG Benzodiazepines NEGATIVE ng/mL <100 medMATCH Benzodiazepines CONSISTENT NRG Marijuana Metabolite NEGATIVE ng/mL <20 medMATCH Marijuana Metab CONSISTENT NRG Cocaine Metabolite NEGATIVE ng/mL <150 medMATCH Cocaine Metab CONSISTENT NRG Opiates POSITIVE ng/mL <100 Oxycodone NEGATIVE ng/mL <100 medMATCH Oxycodone CONSISTENT NRG COMMENT NRG Codeine NEGATIVE ng/mL <50 medMATCH Codeine CONSISTENT NRG Hydrocodone NEGATIVE ng/mL <50 medMATCH Hydrocodone CONSISTENT NRG Hydromorphone 162 ng/mL <50 medMATCH Hydromorphone CONSISTENT NRG Morphine 8395 ng/mL <50 medMATCH Morphine CONSISTENT NRG Norhydrocodone NEGATIVE ng/mL <50 medMATCH Norhydrocodone CONSISTENT NRG TSH - 04/19/19 10:25 TSH 4.05 mIU/L 0.40-4.50 CBC - 05/08/19 11:53 WHITE BLOOD CELL COUNT 9.5 Thousand/uL 3 .8-10.8 RED BLOOD CELL COUNT 4.30 Million/uL 3.8 0-5.10 HEMOGLOBIN 11.6 g/dL 11.7-15.5 HEMATOCRIT 36.8 % 35.0-45.0 MCV 85.6 fL 80.0-100.0 MCH 27.0 pg 27.0-33.0 MCHC 31.5 g/dL 32.0-36.0 RDW 15.5 % 11.0-15.0 PLATELET COUNT 556 Thousand/uL 140-400 MPV 8.9 fL 7.5-12.5 ABSOLUTE NEUTROPHILS 7230 cells/uL 1500- 7800 ABSOLUTE LYMPHOCYTES 1340 cells/uL 850-3 900 ABSOLUTE MONOCYTES 817 cells/uL 200-950 ABSOLUTE EOSINOPHILS 67 cells/uL 15-500 ABSOLUTE BASOPHILS 48 cells/uL 0-200 NEUTROPHILS 76.1 % NRG LYMPHOCYTES 14.1 % NRG MONOCYTES 8.6 % NRG EOSINOPHILS 0.7 % NRG BASOPHILS 0.5 % NRG TSH - 05/08/19 11:53 TSH 1.84 mIU/L 0.40-4.50 CBC - 05/11/19 13:01 WHITE BLOOD CELL COUNT 8.5 Thousand/uL 3 .8-10.8 RED BLOOD CELL COUNT 3.95 Million/uL 3.8 0-5.10 HEMOGLOBIN 10.7 g/dL 11.7-15.5 HEMATOCRIT 34.0 % 35.0-45.0 MCV 86.1 fL 80.0-100.0 MCH 27.1 pg 27.0-33.0 MCHC 31.5 g/dL 32.0-36.0 RDW 15.3 % 11.0-15.0 PLATELET COUNT 550 Thousand/uL 140-400 MPV 8.7 fL 7.5-12.5 ABSOLUTE NEUTROPHILS 6112 cells/uL 1500- 7800 ABSOLUTE LYMPHOCYTES 1505 cells/uL 850-3 900 ABSOLUTE MONOCYTES 706 cells/uL 200-950 ABSOLUTE EOSINOPHILS 102 cells/uL 15-500 ABSOLUTE BASOPHILS 77 cells/uL 0-200 NEUTROPHILS 71.9 % NRG LYMPHOCYTES 17.7 % NRG MONOCYTES 8.3 % NRG EOSINOPHILS 1.2 % NRG BASOPHILS 0.9 % NRG CULTURE, URINE - 06/26/19 00:00 CULTURE, URINE, ROUTINE SEE NOTE NRG Automated blood [facility] ([facility] panel - 07/10/19 07:03 Blood leukocytes automated count (number/volume) 6.8 10*3/uL 4.3-11.0 Blood erythrocytes automated count (number/volume) 4.12 10*6/uL 4.35-5.85 Venous blood hemoglobin measurement (mass/volume) 10.9 g/dL 11.5-16.0 Blood hematocrit (volume fraction) 36 % 35-52 Automated erythrocyte mean corpuscular volume 86 [ foz_us] 80-99 Automated erythrocyte mean corpuscular h emoglobin (mass per erythrocyte) 26 pg 25-34 Automated erythrocyte mean corpuscular h emoglobin concentration measurement (mass/volume) 31 g/dL 32-36 Automated erythrocyte distribution width ratio 16. 1 % 10.0- 14.5 Automated blood platelet count (count/volume) 415 10*3/uL 130-400 Automated blood platelet mean volume measurement 8.8 [foz_us] 7.4-10.4 PT panel in platelet poor plasma by coag ulation assay - 07/10/19 07:03 Prothrombin time (PT) in platelet poor plasma by coagu lation assay 13.5 s 12.2-14.7 INR in platelet poor plasma or blood by coagulation as say 1.0 0.8-1.4 Activated partial thromboplastin time (a PTT) in platelet poor plasma bycoagulation assay - 07/10/19 07:03 Activated partial thromboplastin time (a PTT) in platelet poor plasma bycoagulation assay 38 s 24-35 Comprehensive metabolic panel - 07/10/19 07:03 Serum or plasma sodium measurement (moles/volume) 137 mmol/L 135-145 Serum or plasma potassium measurement (moles/volume) 3.9 mmol/L 3.6-5.0 Serum or plasma chloride measurement (moles/volume) 94 mmol/L 98-107 Carbon dioxide 29 mmol/L 21-32 Serum or plasma anion gap determination (moles/volume) 14 mmol/L 5-14 Serum or plasma urea nitrogen measurement (mass/volume ) 8 mg/dL 7-18 Serum or plasma creatinine measurement (mass/volume) 0.84 mg/dL 0.60-1.30 Serum or plasma urea nitrogen/creatinine mass ratio 10 NRG Serum or plasma creatinine measurement w ith calculation of estimated glomerular filtration rate > NRG Serum or plasma glucose measurement (mass/volume) 100 mg/dL 70-105 Serum or plasma calcium measurement (mass/volume) 9.4 mg/dL 8.5-10.1 Serum or plasma total bilirubin measurement (mass/volu me) 0.4 mg/dL 0.1-1.0 Serum or plasma alkaline phosphatase flores surement (enzymatic activity/volume) 126 U/L 40-136 Serum or plasma aspartate aminotransfera se measurement (enzymatic activity/volume) 13 U/L 5-34 Serum or plasma alanine aminotransferase measurement (enzymatic activity/volume) 10 U/L 0-55 Serum or plasma protein measurement (mass/volume) 6.9 g/dL 6.4-8.2 Serum or plasma albumin measurement (mass/volume) 4.1 g/dL 3.2-4.5 CALCIUM CORRECTED 9.3 mg/dL 8.5-10.1 Lipid 1996 panel - 07/10/19 07:03 Serum or plasma triglyceride measurement (mass/volume) 82 mg/dL <150 Serum or plasma cholesterol measurement (mass/volume) 164 mg/dL < 200 Serum or plasma cholesterol in HDL measurement (mass/v olume) 87 mg/dL 40-60 Cholesterol in LDL [mass/volume] in serum or plasma by direct assay 53 mg/dL 1-129 Serum or plasma cholesterol in VLDL measurement (mass/ volume) 16 mg/dL 5-40 Methicillin resistant Staphylococcus aur eus (MRSA) screening culture - 07/10/19 07:03 Methicillin resistant Staphylococcus aureus (MRSA) scr eening culture NEG NRG Complete blood count (CBC) with automate d white blood cell (WBC) differential - 10/24/19 18:55 Blood leukocytes automated count (number/volume) 6.9 10*3/uL 4.3-11.0 Blood erythrocytes automated count (number/volume) 4.16 10*6/uL 4.35-5.85 Venous blood hemoglobin measurement (mass/volume) 11.7 g/dL 11.5-16.0 Blood hematocrit (volume fraction) 36 % 35-52 Automated erythrocyte mean corpuscular volume 86 [ foz_us] 80-99 Automated erythrocyte mean corpuscular h emoglobin (mass per erythrocyte) 28 pg 25-34 Automated erythrocyte mean corpuscular h emoglobin concentration measurement (mass/volume) 33 g/dL 32-36 Automated erythrocyte distribution width ratio 17. 1 % 10.0- 14.5 Automated blood platelet count (count/volume) 554 10*3/uL 130-400 Automated blood platelet mean volume measurement 9.2 [foz_us] 7.4-10.4 Automated blood neutrophils/100 leukocytes 65 % 42-75 Automated blood lymphocytes/100 leukocytes 18 % 12-44 Blood monocytes/100 leukocytes 13 % 0-12 Automated blood eosinophils/100 leukocytes 3 % 0-10 Automated blood basophils/100 leukocytes 1 % 0-10 Blood neutrophils automated count (number/volume) 4.5 10*3 1.8-7.8 Blood lymphocytes automated count (number/volume) 1.3 10*3 1.0-4.0 Blood monocytes automated count (number/volume) 0. 9 10*3 0.0-1.0 Automated eosinophil count 0.2 10*3/uL 0 .0-0.3 Automated blood basophil count (count/volume) 0.1 10*3/uL 0.0-0.1 Comprehensive metabolic panel - 10/24/19 18:55 Serum or plasma sodium measurement (moles/volume) 134 mmol/L 135-145 Serum or plasma potassium measurement (moles/volume) 4.7 mmol/L 3.6-5.0 Serum or plasma chloride measurement (moles/volume) 93 mmol/L 98-107 Carbon dioxide 31 mmol/L 21-32 Serum or plasma anion gap determination (moles/volume) 10 mmol/L 5-14 Serum or plasma urea nitrogen measurement (mass/volume ) 13 mg/dL 7-18 Serum or plasma creatinine measurement (mass/volume) 0.80 mg/dL 0.60-1.30 Serum or plasma urea nitrogen/creatinine mass ratio 16 NRG Serum or plasma creatinine measurement w ith calculation of estimated glomerular filtration rate > NRG Serum or plasma glucose measurement (mass/volume) 90 mg/dL 70-105 Serum or plasma calcium measurement (mass/volume) 9.0 mg/dL 8.5-10.1 Serum or plasma total bilirubin measurement (mass/volu me) 0.2 mg/dL 0.1-1.0 Serum or plasma alkaline phosphatase flores surement (enzymatic activity/volume) 140 U/L 40-136 Serum or plasma aspartate aminotransfera se measurement (enzymatic activity/volume) 28 U/L 5-34 Serum or plasma alanine aminotransferase measurement (enzymatic activity/volume) 15 U/L 0-55 Serum or plasma protein measurement (mass/volume) 7.1 g/dL 6.4-8.2 Serum or plasma albumin measurement (mass/volume) 3.5 g/dL 3.2-4.5 CALCIUM CORRECTED 9.4 mg/dL 8.5-10.1 Magnesium - 10/24/19 18:55 Magnesium 2.4 mg/dL 1.6-2.4 Lipase - 10/24/19 18:55 Lipase 9 U/L 8-78 Serum or plasma C reactive protein measu rement (mass/volume) - 10/24/19 18:55 Serum or plasma C reactive protein measurement (mass/v olume) 2.90 mg/dL 0.00-0.50 Influenza virus A and B antigen detectio n - 10/24/19 19:46 FLU RESULT NEGATIVE FOR INFLUENZA A AND B ANTIGENS BY IA NRG Complete urinalysis with reflex to cultu re - 10/24/19 20:14 Urine color determination YELLOW NRG Urine clarity determination CLEAR NR G Urine pH measurement by test strip 5.5 5-9 Specific gravity of urine by test strip 1.015 1.016-1.022 Urine protein assay by test strip, semi-quantitative NEGATIVE NEGATIVE Urine glucose detection by automated test strip NE GATIVE NEGATIVE Erythrocytes detection in urine sediment by light micr oscopy NEGATIVE NEGATIVE Urine ketones detection by automated test strip NE GATIVE NEGATIVE Urine nitrite detection by test strip NEGATIVE NEGATIVE Urine total bilirubin detection by test strip NEGA TIVE NEGATIVE Urine urobilinogen measurement by automated test strip (mass/volume) 0.2 mg/dL < = 1.0 Urine leukocyte esterase detection by dipstick NEG ATIVE NEGATIVE Automated urine sediment erythrocyte cou nt by microscopy (number/high power field) NONE NRG Automated urine sediment leukocyte count by microscopy (number/high power field) NONE NRG Bacteria detection in urine sediment by light microsco py TRACE NRG Squamous epithelial cells detection in u rine sediment by light microscopy NONE NRG Crystals detection in urine sediment by light microsco py PRESENT NRG Casts detection in urine sediment by light microscopy PRESENT NRG Mucus detection in urine sediment by light microscopy SMALL NRG Complete urinalysis with reflex to culture NO NRG Amorphous sediment detection in urine sediment by ligh t microscopy RARE NATASHA URATES NRG Hyaline casts detection in urine sediment by light jazmin roscopy 2-5 NRG Complete blood count (CBC) with automate d white blood cell (WBC) differential - 10/25/19 06:05 Blood leukocytes automated count (number/volume) 5.5 10*3/uL 4.3-11.0 Blood erythrocytes automated count (number/volume) 3.40 10*6/uL 4.35-5.85 Venous blood hemoglobin measurement (mass/volume) 9.6 g/dL 11.5-16.0 Blood hematocrit (volume fraction) 30 % 35-52 Automated erythrocyte mean corpuscular volume 89 [ foz_us] 80-99 Automated erythrocyte mean corpuscular h emoglobin (mass per erythrocyte) 28 pg 25-34 Automated erythrocyte mean corpuscular h emoglobin concentration measurement (mass/volume) 32 g/dL 32-36 Automated erythrocyte distribution width ratio 16. 9 % 10.0- 14.5 Automated blood platelet count (count/volume) 412 10*3/uL 130-400 Automated blood platelet mean volume measurement 8.6 [foz_us] 7.4-10.4 Automated blood neutrophils/100 leukocytes 59 % 42-75 Automated blood lymphocytes/100 leukocytes 22 % 12-44 Blood monocytes/100 leukocytes 14 % 0-12 Automated blood eosinophils/100 leukocytes 3 % 0-10 Automated blood basophils/100 leukocytes 1 % 0-10 Blood neutrophils automated count (number/volume) 3.3 10*3 1.8-7.8 Blood lymphocytes automated count (number/volume) 1.2 10*3 1.0-4.0 Blood monocytes automated count (number/volume) 0. 8 10*3 0.0-1.0 Automated eosinophil count 0.2 10*3/uL 0 .0-0.3 Automated blood basophil count (count/volume) 0.1 10*3/uL 0.0-0.1 Comprehensive metabolic panel - 10/25/19 06:05 Serum or plasma sodium measurement (moles/volume) 134 mmol/L 135-145 Serum or plasma potassium measurement (moles/volume) 4.1 mmol/L 3.6-5.0 Serum or plasma chloride measurement (moles/volume) 97 mmol/L 98-107 Carbon dioxide 30 mmol/L 21-32 Serum or plasma anion gap determination (moles/volume) 7 mmol/L 5-14 Serum or plasma urea nitrogen measurement (mass/volume ) 9 mg/dL 7-18 Serum or plasma creatinine measurement (mass/volume) 0.61 mg/dL 0.60-1.30 Serum or plasma urea nitrogen/creatinine mass ratio 15 NRG Serum or plasma creatinine measurement w ith calculation of estimated glomerular filtration rate > NRG Serum or plasma glucose measurement (mass/volume) 84 mg/dL 70-105 Serum or plasma calcium measurement (mass/volume) 7.9 mg/dL 8.5-10.1 Serum or plasma total bilirubin measurement (mass/volu me) 0.2 mg/dL 0.1-1.0 Serum or plasma alkaline phosphatase flores surement (enzymatic activity/volume) 124 U/L 40-136 Serum or plasma aspartate aminotransfera se measurement (enzymatic activity/volume) 10 U/L 5-34 Serum or plasma alanine aminotransferase measurement (enzymatic activity/volume) 10 U/L 0-55 Serum or plasma protein measurement (mass/volume) 5.2 g/dL 6.4-8.2 Serum or plasma albumin measurement (mass/volume) 2.9 g/dL 3.2-4.5 CALCIUM CORRECTED 8.8 mg/dL 8.5-10.1 Encounters ACCT No. Visit Date/Time Discharge Status Pt. Type Provider Facility Loc./Unit Complaint [id number] 11/06/2014 13:27:00 11/06/2014 23:59: 59 CLS Outpatient CLARISSE GARCIA APRN [id number] 10/09/2014 08:45:00 10/09/2014 23:59: 59 [place] [id number] 11/19/2019 12:00:00 11/19/2019 23:59:5 9 CLS Outpatient OBINNA PRASAD MD [facility] [place] [id number] 06/26/2019 11:20:00 Document Registration [id number] 05/11/2019 12:55:00 Document Registration [id number] 05/08/2019 10:20:00 Document Registration [id number] 04/19/2019 09:10:00 Document Registration [id number] 11/07/2018 09:40:00 Document Registration [id number] 07/20/2018 09:00:00 Document Registration [id number] 05/30/2018 09:00:00 Document Registration [id number] 05/11/2018 09:40:00 Document Registration [id number] 06/07/2017 10:00:00 Document Registration [id number] 12/17/2019 10:00:00 23:59:59 CLS Preadmit RAYNA FARAH MD [facility] 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 [id number] 12/14/2019 11:00:00 11:41:00 DIS Outpatient RAYNA FARAH MD [facility] PREOP PEG TUBE PLACEMENT [id number] 12/04/2019 08:29:00 23:59:59 CLS Outpatient BLU BARRERA MD [facility] RAD SUPRAGLOTTIC SQUAMOUS C ELL CA [id number] 10/24/2019 21:10:00 17:30:00 DIS Inpatient MARY DO, JARED V ia [facility] 4TH DEHYDRATION, INTRACTABL E CA (THROAT)PAIN [id number] 10/12/2019 10:03:00 23:59:59 CLS Outpatient JOVANA HULL MD [facility] RAD HX RADIATION,CHRONIC SO RE THROAT [id number] 09/17/2019 13:10:00 23:59:59 CLS Preadmit OBINNA PRASAD MD [facility] SDC OSTEOPOROSIS M81.0 [id number] 07/27/2019 13:10:00 15:10:00 DIS Outpatient RAYNA FARAH MD [facility] ENDO ANEMIA/CHANGE IN BOWEL HABIT [id number] 07/26/2019 06:16:00 09:13:00 DIS Outpatient RAYNA FARAH MD [facility] PREOP COLONOSCOPY/EGD [id number] 07/10/2019 06:46:00 13:45:00 DIS Outpatient VERONICA LAU FACC, TERRY MILLER CC DS Via [facility] CHEST PAIN, CAROTID ARTERIAL DISEASE [id number] 05/29/2019 13:00:00 23:59:59 CLS Preadmit VERONICA LAU FACC, TERRY MILLER CCDS [facility] PALPITATIONS,CHF,HTN,SOB,TOBACCO USER,COPD [id number] 05/16/2019 15:08:00 23:59:59 CLS Outpatient OBINNA PRASAD MD [facility] RAD PHARYNGEAL DYSPHAGIA,TH ROAT SWELLING [id number] 10/10/2018 00:10:00 23:59:59 CLS Preadmit JENNIFER COBB MD [facility] ONC [id number] 09/20/2018 10:45:00 00:01:00 DIS Outpatient JENNIFER COBB MD [facility] ONC [id number] 07/28/2018 12:47:00 14:00:00 DIS Outpatient OBINNA PRASAD MD [facility] M81.0 [id number] 07/11/2018 08:05:00 23:59:59 CLS Outpatient JOVANA HULL MD Via [facility] RAD T2 SCCA OF EPIGIOTTIS [id number] 06/29/2018 08:09:00 13:20:00 DIS Outpatient JOVANA HULL MD [facility] EPIGLOTTIC MASS [id number] 06/28/2018 09:42:00 15:40:00 DIS Outpatient JOVANA HULL MD Via [facility] PREOP EPIGLOTTIC MASS [id number] 06/22/2018 08:06:00 23:59:59 CLS Outpatient VERONICA LAU FACC, TERRY MILLER CC DS Via [facility] CARD CAD [id number] 06/09/2018 15:02:00 23:59:59 CLS Preadmit JOVANA HULL MD Via [facility] RAD RIGHT EPIGLOTIC MASS [id number] 06/09/2018 12:49:00 23:59:59 CLS Outpatient JOVANA HULL MD [facility] RAD RIGHT EPIGLOTIC MASS [id number] 03/01/2018 08:59:00 12:30:00 DIS Outpatient RAYNA FARAH MD [facility] ENDO +BLOOD IN STOOLS/CONSTI PATION/HX PEREZ'S [id number] 02/23/2018 05:48:00 11:59:00 DIS Outpatient RAYNA FARAH MD [facility] PREOP COLONOSCOPY/EGD [id number] 09/08/2017 11:10:00 23:59:59 CLS Outpatient OBINNA PRASAD MD [facility] RAD M81.0, Z00.00,Z12.31 [id number] 09/08/2017 11:10:00 017 13:21:00 DIS Outpatient JOVANA JOSEPH DO Via [facility] CARD M54.16 LUMBAR RADICULOPATHY [id number] 08/22/2017 12:20:00 017 23:59:59 CLS Outpatient MERRITT VALENZUELA DO Via [facility] RAD ADRENAL MASS E2 7.8 [id number] 07/21/2017 08:46:00 017 23:59:59 CLS Outpatient OBINNA PRASAD MD Via [facility] RAD Z00.00 [id number] 06/23/2017 12:30:00 017 23:59:59 CLS Preadmit RONNY BENEDICT MD, V ia [facility] WOUNDCARE [id number] 06/14/2017 11:19:00 017 23:59:59 CLS Outpatient ECTOR DORSEY APRN [facility] WOUNDCARE [id number] 06/09/2017 09:44:00 017 23:59:59 CLS Outpatient RONNY BENEDICT MD [facility] WOUNDCARE [id number] 05/28/2017 11:53:00 017 14:18:00 DIS Emergency EMELY ESTES [facility] ER CONSTIPATION/DIARRHEA [id number] 05/17/2017 13:15:00 017 23:59:59 CLS Preadmit VERONICA LAU FACC, TERRY MILLER CCDS [facility] RAD PERIPHERAL FANNIE RIAL DISEASE I73.9 [id number] 05/11/2017 09:09:00 017 23:59:59 CLS Preadmit OBINNA PRASAD MD [facility] SLEEP HYPERSOMNIA,SNORING [id number] 11/08/2016 10:15:00 017 23:59:59 CLS Preadmit NIVIA LAU, DILALO Blas ia [facility] PULM J44.9 [id number] 08/09/2016 10:35:00 017 00:01:00 DIS Outpatient NIVIA LAU, DIALLO Quinones [facility] PULM J44.9 [id number] 11/05/2016 08:40:00 017 09:19:00 DIS Outpatient LELE HUGHES MD [facility] CARD DISC DISORDER [id number] 09/30/2016 13:17:00 017 23:59:59 CLS Outpatient ADINA LOZANO MD Via [facility] RAD SHORTNESS OF BREATH [id number] 09/13/2016 00:00:00 017 02:26:00 DIS Emergency TOSHIA DUENAS DO Via [facility] ER SOA, COUGH [id number] 08/16/2016 13:04:00 016 14:17:00 DIS Outpatient LELE HUGHES MD Via [facility] CARD M51.16 [id number] 03/01/2016 13:13:00 016 23:59:59 CLS Outpatient NIVIA LAU, DIALLO Quinones [facility] RAD COPD [id number] 03/01/2016 13:08:00 016 23:59:59 CLS Outpatient OBINNA PRASAD MD Via [facility] RAD F/U PATCHY DENSITY ANTE RIORLY R LOBE [id number] 03/01/2016 13:01:00 016 23:59:59 CLS Outpatient VERONICA LAU FACC, TERRY MILLER CC DS Via [facility] CARD CHRONIC HYPONATREMIA,COPD,ADRENAL MASS,HTN [id number] 01/29/2016 06:14:00 016 15:28:00 DIS Outpatient KIM THURSTON DO Via [facility] PREOP POLYPS;GERD [id number] 11/17/2015 14:52:00 016 16:45:00 DIS Inpatient FABIANA BEJARANO MD [facility] 4TH PNEUMONIA AECOPD AFIB R VR [id number] 10/10/2015 11:25:00 016 12:46:00 DIS Outpatient LELE HUGHES MD [facility] CARD DISC DISORDER W/ RADICU LOPATHY LUMBAR [id number] 07/22/2015 13:27:00 23:59:59 CLS Outpatient VALENZUELA DO, MERRITT Burnett [facility] RAD ADRENAL MASS [id number] 06/30/2015 10:18:00 23:59:59 CLS Outpatient OBINNA PRASAD MD [facility] RAD FOLLOW UP FOR PNEUMONIA [id number] 06/27/2015 07:22:00 08:21:00 DIS Outpatient LELE HUGHES MD [facility] CARD DDD LUMBAR [id number] 05/19/2015 09:34:00 13:51:00 DIS Inpatient OBINNA PRASAD MD [facility] SURGICAL PNEUMONIA [id number] 05/09/2015 07:07:00 015 07:55:00 DIS Outpatient LELE HUGHES MD [facility] CARD DDD LUMBAR [id number] 03/13/2015 10:56:00 015 23:59:59 CLS Outpatient KURTIS LAU, JOVANA Leal [facility] RAD UNILATERAL SORE THROAT, EAR PAIN [id number] 02/25/2015 10:18:00 015 23:59:59 CLS Outpatient OBINNA PRASAD MD [facility] RAD ADRENAL MASS [id number] 02/24/2015 10:18:00 015 23:59:59 CLS Outpatient OBINNA PRASAD MD [facility] LAB HYPERTENSION,HYPOTHYROI DISM [id number] 01/17/2015 08:49:00 10:16:00 DIS Outpatient LELE HUGHES MD [facility] CARD DDD LUMBAR [id number] 12/31/2014 10:16:00 015 23:59:59 CLS Outpatient LELE HUGHES MD [facility] RAD LOW BACK PAIN [id number] 10/25/2014 07:33:00 015 08:14:00 DIS Outpatient LELE HUGHES MD [facility] CARD DDD [id number] 10/14/2014 15:18:00 015 23:59:59 CLS Outpatient OBINNA PRASAD MD [facility] RAD HEAD TRAUMA, ON PREDAXI A [id number] 08/18/2014 18:00:00 014 20:08:00 DIS Emergency CORNELIO BENEDICT MD [facility] ER COLD COUGH [id number] 07/19/2014 07:32:00 23:59:59 CLS Outpatient LELE HUGHES MD [facility] CARD DDD LUMBAR [id number] 07/19/2014 07:30:00 23:59:59 CLS Outpatient SHAYY PEOPLES MD [facility] RAD ABDOMINAL MASS [id number] 07/01/2014 09:42:00 23:59:59 CLS Outpatient SHAYY PEOPLES MD [facility] RAD ABDOMINAL MASS [id number] 05/22/2014 08:50:00 14:10:00 DIS Outpatient RAYNA FARAH MD [facility] SDC COLON MASS;REFLUX [id number] 05/17/2014 07:11:00 014 08:01:00 DIS Outpatient LELE HUGHES MD [facility] CARD DDD [id number] 05/16/2014 07:21:00 23:59:59 CLS Outpatient RAYNA FARAH MD [facility] PREOP COLON MASS;REFLUX [id number] 05/08/2014 08:05:00 014 23:59:59 CLS Outpatient SHAYY PEOPLES MD [facility] RAD WEIGHT LOSS,SIADH,TOBA CCOISM,EARLY SATIETY [id number] 01/28/2014 12:13:00 05/19/2 014 14:04:00 DIS Outpatient LELE HUGHES MD [facility] CARD DDD LUMBAR [id number] 11/09/2013 07:19:00 23:59:59 CLS Outpatient SHAYY PEOPLES MD [facility] RAD SCREENING [id number] 11/09/2013 07:09:00 23:59:59 CLS Outpatient LELE HUGHES MD [facility] CARD SACROILLIAC JOINT DSYFU NCTION,HIP PAIN BILATERAL [id number] 09/03/2013 12:35:00 23:59:59 CLS Outpatient LELE HUGHES MD [facility] SACROILLIAC JOINT [id number] 08/13/2013 12:29:00 23:59:59 CLS Outpatient LELE HUGHES MD [facility] CARD LUMBAR SPONDYLOSIS [id number] 07/11/2013 09:34:00 11:51:00 DIS Outpatient LELE HUGHES MD [facility] REHAB CERICALGIA [id number] 06/08/2013 07:43:00 23:59:59 CLS Outpatient LELE HUGHES MD [facility] CARD DEGENERATIVE DISC DISEA SE-LUMBAR [id number] 05/04/2013 08:00:00 23:59:59 CLS Outpatient LELE HUGHES MD [facility] CARD DDD LUMBAR [id number] 12/21/2019 10:00:00 P NATY PRASAD MD, OBINNA Corral [facility] RAD OROPHARYNGEAL DYSPHAGIA [id number] 12/31/2014 10:16:00 Document Registration [id number] 12/31/2014 10:16:00 Document Registration [id number] 12/31/2014 10:16:00 Document Registration [id number] 12/31/2014 10:16:00 Document Registration [id number] 12/31/2014 10:16:00 Document Registration [id number] 12/31/2014 10:16:00 Document Registration [id number] 12/31/2014 10:16:00 Document Registration [id number] 12/31/2014 10:16:00 Document Registration [id number] 12/31/2014 10:16:00 Document Registration [id number] 12/31/2014 10:16:00 Document Registration [id number] 12/31/2014 10:16:00 Document Registration [id number] 12/31/2014 10:16:00 Document Registration [id number] 12/31/2014 10:15:00 Document Registration [id number] 12/31/2014 10:15:00 Document Registration [id number] 12/31/2014 10:15:00 Document Registration [id number] 12/31/2014 10:15:00 Document Registration [id number] 12/31/2014 10:15:00 Document Registration [id number] 11/10/2012 09:01:00 Document Registration [id number] 11/09/2012 08:16:00 Document Registration [id number] 10/26/2012 09:17:00 Document Registration [id number] 10/09/2012 10:13:00 Document Registration [id number] 05/22/2012 11:03:00 Document Registration [id number] 04/27/2012 13:09:00 Document Registration [id number] 04/25/2012 14:09:00 Document Registration [id number] 04/20/2012 09:59:00 Document Registration [id number] 12/17/2011 08:02:00 Document Registration [id number] 12/14/2011 08:56:00 Document Registration [id number] 12/08/2011 08:27:00 Document Registration [id number] 08/02/2011 11:42:00 Document Registration [id number] 07/01/2011 13:03:00 Document Registration [id number] 06/18/2011 11:31:00 Document Registration [id number] 06/08/2011 11:45:00 Document Registration [id number] 05/24/2011 12:37:00 Document Registration [id number] 05/24/2011 12:24:00 Document Registration [id number] 04/02/2011 09:07:00 Document Registration [id number] 03/09/2011 10:33:00 Document Registration [id number] 02/26/2011 07:33:00 Document Registration [id number] 02/23/2011 07:24:00 Document Registration [id number] 09/29/2010 08:58:00 Document Registration [id number] 09/18/2010 05:38:00 Document Registration [id number] 09/15/2010 13:07:00 Document Registration [id number] 08/25/2010 09:55:00 Document Registration [id number] 08/05/2010 08:46:00 Document Registration [id number] 07/13/2010 12:53:00 Document Registration [id number] 07/13/2010 12:41:00 Document Registration [id number] 07/07/2010 12:21:00 Document Registration [id number] 06/29/2010 08:26:00 Document Registration [id number] 06/26/2010 10:59:00 Document Registration [id number] 06/15/2010 11:31:00 Document Registration [id number] 05/26/2010 11:19:00 Document Registration [id number] 05/24/2010 11:50:00 Document Registration [id number] 05/20/2010 10:10:00 Document Registration [id number] 05/12/2010 13:46:00 Document Registration [id number] 05/11/2010 10:56:00 Document Registration [id number] 01/21/2010 10:50:00 Document Registration
--- NOTE | 2019-12-21 09:54 | Conscious Sedation/ASA ---
Conscious Sedation Pre-Proced Time 09:30 ASA Score 3 For ASA 3 and 4: Consider anesthesia and medical clearance. Also, for patients with a history of failed moderate sedation consider anesthesia. Airway Lungs Heart ASA score ASA 1: a normal healthy patient ASA 2: a patient with a mild systemic disease (mid diabetes, controlled hypertension, obesity ASA 3: a patient with a severe systemic disease that limits activity (angina, COPD, prior Myocardial infarction) ASA 4: a patient with an incapacitating disease that is a constant threat to life (CHF, renal failure) ASA 5: a moribund patient not expected to survive 24 hrs. (ruptured aneurysm) ASA 6: a declared brain- patient whose organs are being harvested. For emergent operations, add the letter E after the classification Mallampati Classification Grade 2 Sedation Plan Analgesia, Amnesia, Plan communicated to team members, Discussed options with patient/fam, Discussed risks with patient/fam The patient is an appropriate candidate to undergo the planned procedure, sedation, and anesthesia. The patient immediately re-assessed prior to indication. RAYNA FARAH MD Dec 21, 2019 09:54
--- NOTE | 2019-12-21 09:55 | Progress Note-Pre Operative ---
Pre-Operative Progress Note H&P Reviewed The H&P was reviewed, patient examined and no changes noted. Date Seen by Provider: Dec 21, 2019 Time Seen by Provider: : Date H&P Reviewed: Dec 21, 2019 Time H&P Reviewed: : Pre-Operative Diagnosis: oral pharygeal cancer with dysphagia RAYNA FARAH MD Dec 21, 2019 09:55
[2019-12-21] MEDS ORDERED: fentaNYL INJECTION 100 MCG/2 ML AMP ONE (09:59)
[2019-12-21] MEDS ORDERED: HURRICAINE EXT TUBE (BENZOCAINE) ONE (09:59)
[2019-12-21] MEDS ORDERED: LIDOCAINE JELLY 2% 6 ML SYRINGE ONE (09:59)
[2019-12-21] MEDS ORDERED: MIDAZOLAM 5 MG/5 ML (VERSED) VIAL ONE (09:59)
[2019-12-21] MEDS ORDERED: morphine INJ 10 MG/ML 1ML (SYR OR VIAL) IVP PRN ×2 (10:00)
[2019-12-21] MEDS ORDERED: fentaNYL INJECTION 100 MCG/2 ML AMP IVP ONE (10:00)
[2019-12-21] MEDS ORDERED: HURRICAINE EXT TUBE (BENZOCAINE) XX PRN (10:00)
[2019-12-21] MEDS ORDERED: ONDANSETRON 4 MG/2 ML (SDV) Z0FRAN IVP PRN (10:00)
[2019-12-21] MEDS ORDERED: ACETAMINOPHEN 325 MG TABLET PO PRN (10:00)
[2019-12-21] MEDS ORDERED: LIDOCAINE JELLY 2% 6 ML SYRINGE MM PRN (10:00)
--- NOTE | 2019-12-21 10:00 | Discharge Inst-Surgical ---
D/C Lap Instructions-GAGAN Follow Up PRN Activity as tolerated 1 can liquid meal replacement(boost, ensure, jevity, over the counter preperations) TID. Free water for a total of 750-1500ml daily or to urine output of 0.5ml/kg/hr. Avoid Alcohol, Caffeine, Spicy [place] and Acid foods. Drink 64 fluid oz or more of fluids per day. Symptoms to Report: Fever over 101 degree F, Nausea/Vomiting If any problems/questions: Contact your physician or go to Emergency Room RAYNA FARAH MD Dec 21, 2019 10:00
[2019-12-21] MEDS: MIDAZOLAM 5 MG/5 ML (VERSED) VIAL IV PRN ×2 (10:06→10:10)
--- NOTE | 2019-12-21 10:56 | Progress Note-Post Operative ---
Post-Operative Progess Note Surgeon (s)/Cold Food Packer (s) Surgeon RAYNA FARAH MD Cold Food Packer: none Pre-Operative Diagnosis oral pharygeal cancer with dysphagia Post-Operative Diagnosis same Procedure & Operative Findings Date of Procedure 12/21/19 Procedure Performed/Findings EGD with bx and PEG Anesthesia Type cs with local Estimated Blood Loss Estimated blood loss (mL): minimal Specimens/Packing Specimens Removed ge jxn RAYNA FARAH MD Dec 21, 2019 10:56
--- NOTE | 2019-12-21 11:32 | OPERATIVE REPORT ---
DATE OF SERVICE: 12/21/2019 ATTENDING PRIMARY CARE PHYSICIAN: Dr. Eunice Vidal. 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 POSTOPERATIVE DIAGNOSES: Reflux esophagitis stage III, small hiatal hernia 1.5 cm in size, moderate gastritis. No distal obstructions. PROCEDURE: EGD with biopsy and placement of percutaneous endoscopic gastrostomy tube. SURGEON: Rayna Farah MD. ANESTHESIA: Conscious sedation with local. ESTIMATED BLOOD LOSS: Minimal. FINDINGS: Reflux esophagitis stage III, small hiatal hernia 1.5 cm in size, moderate gastritis. No distal obstructions. DISPOSITION: The patient tolerated the procedure well. INDICATIONS: The patient is a 74-year-old female known to us. She has an extensive past medical history including gastroesophageal reflux disease, atrial fibrillation, hypertension, hypothyroid, emphysema as well as coronary artery disease. She was instructed to stop smoking; however, has been medically noncompliant. She was diagnosed with oropharyngeal cancer 09/2018 and underwent radiation therapy. She has had development of recurrent oropharyngeal cancer and has developed significant dysphagia. She also does have a history of Noguera's esophagus. DESCRIPTION OF PROCEDURE: The patient was brought to the endoscopy suite made in the left lateral decubitus position with head slightly elevated. After adequate IV pain and sedative medications and conscious sedation anesthesia, the mouthpiece was applied. The endoscope was placed in the mouth, visualizing the pharynx and hypopharyngeal region. Vocal cords, epiglottis and vallecula identified and appeared to be normal. The endoscope was then gently intubated at esophageal opening and esophagus insufflated. The endoscope was then advanced to the first, second and third portion of the esophagus at the level of the GE junction, reflux esophagitis stage III identified. No ulcers or strictures identified in this region. A biopsy was taken of the GE junction with forceps with visualization of good hemostasis. The endoscope was then advanced into the stomach. The endoscope retroflexed, visualizing a small hiatal hernia approximately 1.5 cm in size. There was a moderate severity gastritis. No formal ulcerations, polyps, or any neoplasms. The endoscope was then advanced to the pylorus and the first and second portion of the duodenum, which appeared normal with no distal obstructions. We then proceeded with placement of the percutaneous endoscopic gastrostomy tube. The abdominal wall was anesthetized with a light visualized along the left upper abdominal quadrant and the skin, subcutaneous tissue, muscle layers were then anesthetized using 1% lidocaine. The local needle was also identified going through the mucosa of the stomach. A small skin incision was made using 11 blade and the cannulating needle and trocar were then introduced. The cannulating needle removed and through the trocar, the guidewire was then inserted and looped through the gastroscope and pulled throughout the mouth. The gastrostomy tube was then placed onto the wire and pulled through until the bolster. The internal bolster was visualized, firmly abutting the mucosa of the abdomen, mucosa of the stomach; however, not too tight to cause strangulation. The tube was then cut down to size and the stopper placed on the tube. Bacitracin ointment was then placed onto the exit site and covered with drain sponges. The patient tolerated the procedure well. The gastrostomy tube may be accessed and used at any time. RECOMMENDATIONS: At this time is to proceed with some type of meal replacement liquid with proper amounts of all nutrients as well as vitamins and minerals 3 times a day and also to add free water approximately 750 to 1500 mL daily or adequate urine output of approximately 25 mL every hour. She will be instructed to keep the gastrostomy tube clean and dry and to apply a drain sponge daily. Job ID: [id number] DocumentID: [id number] Dictated Date: 12/21/2019 10:49:08 Die Trouble Shooter Date: 12/21/2019 11:32:06 Dictated By: RAYNA FARAH MD
== END 2019-12-21 12:25 | disposition home or self-care (01) ==
LOC: ENDO 09:26
PROVIDERS: ATTEND Surgery
DX: K21.0 Gastro-esophageal reflux disease with esophagitis (principal); K44.9 Diaphragmatic hernia without obstruction or gangrene; K29.70 Gastritis, unspecified, without bleeding; C10.9 Malignant neoplasm of oropharynx, unspecified; R13.10 Dysphagia, unspecified; Z79.899 Other long term (current) drug therapy; I48.91 Unspecified atrial fibrillation; I10 Essential (primary) hypertension; E03.9 Hypothyroidism, unspecified; J43.9 Emphysema, unspecified; M19.91 Primary osteoarthritis, unspecified site; E22.2 Syndrome of inappropriate secretion of antidiuretic hormone; Z91.19 Patient's noncompliance with other medical treatment and regimen; Z92.3 Personal history of irradiation; F17.200 Nicotine dependence, unspecified, uncomplicated
CPT/HCPCS: 88305

== ENCOUNTER → 2019-12-21 | Outpatient (CLI) | payer MEDICARE, MEDICAID ==
[~2019-12-21] MED LIST changes: +CHOL200078 PO
[2019-12-21 11:52] LABS: BASOPHILS % (AUTO) 0 % (0-10); EOSINOPHILS % (AUTO) 0 % (0-10); HEMATOCRIT 25 % (35-52); HEMOGLOBIN 8.3 G/DL (11.5-16.0); LYMPHOCYTES # (AUTO) 0.7 X 10^3 (1.0-4.0); LYMPHOCYTES % (AUTO) 5 % (12-44); MEAN CORPUSCULAR HEMOGLOBIN 30 PG (25-34); MEAN CORPUSCULAR HGB CONC 34 G/DL (32-36); MEAN CORPUSCULAR VOLUME 89 FL (80-99); MEAN PLATELET VOLUME 8.3 FL (7.4-10.4); MONOCYTES % (AUTO) 7 % (0-12); NEUTROPHILS # (AUTO) 12.2 X 10^3 (1.8-7.8); NEUTROPHILS % (AUTO) 87 % (42-75); PLATELET COUNT 688 10^3/uL (130-400); RED CELL DISTRIBUTION WIDTH 15.3 % (10.0-14.5)
[2019-12-21 12:00] LABS: ALBUMIN 2.3 GM/DL (3.2-4.5); CHLORIDE 97 MMOL/L (98-107); POTASSIUM 5.6 MMOL/L (3.6-5.0); SODIUM 130 MMOL/L (135-145)
[2019-12-21 12:01] LABS: CALCIUM 7.3 MG/DL (8.5-10.1)
[2019-12-21 12:02] LABS: GLUCOSE 90 MG/DL (70-105)
[2019-12-21 12:03] LABS: TOTAL PROTEIN 5.2 GM/DL (6.4-8.2)
[2019-12-21 12:04] LABS: BILIRUBIN,TOTAL 0.3 MG/DL (0.1-1.0); CARBON DIOXIDE 25 MMOL/L (21-32)
[2019-12-21 12:06] LABS: ALKALINE PHOSPHATASE 180 U/L (40-136); CREATININE SERUM 0.53 MG/DL (0.60-1.30); GFR ESTIMATED > 60
[2019-12-21 12:07] LABS: BUN/CREATININE RATIO 11
[2019-12-21 12:09] LABS: ALANINE AMINOTRANSFERASE 10 U/L (0-55)
[2019-12-21 12:15] LABS: ANISOCYTOSIS SLIGHT; BAND NEUTROPHILS 3 %; BASOPHILS % (MANUAL) 0 %; EOSINOPHILS % (MANUAL) 0 %; LYMPHOCYTES % (MANUAL) 7 %; MONOCYTES % (MANUAL) 3 %; NEUTROPHILS % (MANUAL) 87 %; TARGET CELLS SLIGHT
== END ==
LOC: LAB 09:32
PROVIDERS: ATTEND Family Medicine
DX: E03.9 Hypothyroidism, unspecified (principal); I10 Essential (primary) hypertension
CPT/HCPCS: 36415; 80053; 84443; 85007; 85027

== ENCOUNTER 2019-12-22 13:32 | Inpatient (IN) | payer MEDICARE, MEDICAID ==
[~2019-12-22] VITALS: Ht 160 cm; Wt 54.6 kg
[2019-12-22] MEDS ORDERED: NS IV 500 ML 500 ML IV ONE (13:38)
--- OUTSIDE RECORDS SUMMARY | 2019-12-22 13:41 | XMS REPORT | Encounter Summary ---
Author Author [facility] Organization [facility] Address Unknown Phone Unavailable Care Team Providers Care Seam Steamer Name Role Phone Eunice Vidal MD PCP Encounter Details Care Team Description Date Type Department Naman Mir MD [address] Ortho/Med Pavilion [address] [place], [place] [id number] Cancer of larynx (HCC) (Primary Dx) 11/13/2019 Prep for Case [facility] [address] [place] [phone] Social History Date Tobacco Use Types Packs/Day [...]
--- OUTSIDE RECORDS SUMMARY | 2019-12-22 13:41 | XMS REPORT | Encounter Summary ---
Author Author [facility] Organization [facility] Address Unknown Phone Unavailable Care Team Providers Care Plastics Fitter Name Role Phone Eunice Vidal MD PCP Reason for Visit * Reason Comments Surgery Encounter Details Care Team Description Date Type Department Reny Vaca RN Surgery 12/11/2019 Telephone [facility] [address] [place] [address] Social History Date Tobacco Use [...]
--- OUTSIDE RECORDS SUMMARY | 2019-12-22 13:41 | XMS REPORT | Clinical Summary ---
Author Author [facility] Organization [facility] Address Unknown Phone Unavailable Care Team Providers Care Change Attendant Name Role Phone Eunice Vidal MD PCP Source Comments Some departments are not documenting in the electronic medical record. If you d o not see the information that you expected, contact Release of Information in [facility] [employer] Information Management department at [phone] for further assistan froy in locating additional records.[facility] Allergies Comments Active Allergy Reactions Severity [...] Reny Vaca RN Surgery 12/10/2019 Telephone Otolaryngology Neliad Buenrostro MD Lyons, Laura, APRN 11/13/2019 Anesthesia [...] Only Otolaryngology Eunice Vidal MD Sullivan, Jessica, MA,[facility] BUSINESS DEVELOPMENT ERRONEOUS ENCOUNTER--DISREGARD (Primary Dx) 10/31/2019 Clinical Otolaryngology [...] Comments Vital Sign 140/85 11/07/2019 7:22 AM HIGHBALLER Blood Pressure 85 11/07/2019 7:22 AM HIGHBALLER Pulse 36.6 C (97.8 F) 11/07/2019 7:22 AM HIGHBALLER Temperature - - Respiratory Rate 96% 11/07/2019 7:22 AM HIGHBALLER Oxygen Saturation - - Inhaled Oxygen Concentration 54 kg (119 lb) 11/07/2019 7:22 AM HIGHBALLER Weight 160 cm (5' 3") 11/07/2019 7:22 AM HIGHBALLER Height 21.08 11/07/2019 7:22 AM HIGHBALLER Body Mass Index Plan of Treatment Health [...] Larynx cancer (HCC) METABOLIC PANEL 8:39 AM HIGHBALLER HC CBC,AUTOMATED Routine 11/07/2019 Larynx cancer (HCC) 8:39 AM HIGHBALLER ECG-SCAN 11/07/2019 12:[address] NECK EXTERNAL IMAGING Routine 10/12/2019 12:00 AM HIGHBALLER from Last 3 Months Results * CBC (11/07/2019 8:39 AM HIGHBALLER) White Blood 7.7 4.5 - 11.0 K/UL [...] MAIN LAB Specimen Blood Performing Organization Address City/[facility] Ph one Number [facility] [address] [place] [address] * COMPREHENSIVE METABOLIC PANEL (11/07/2019 8:39 AM HIGHBALLER) Sodium 130 (L) 137 - 147 MMOL/L [...] >60 >60 mL/min [facility] Comment: [place] The eGFR is not validated f or use in drug dosing adjustments. Continue to use estimated creatinine clearance per dosing reference text. Please contact the Clinical Pharmacist for questions. eGFR >60 >60 mL/min [facility] [place] Comment: The eGFR is not validated for use in drug dosing adjustments. Continue to use estimated creatinine clearance per dosing reference text. Please contact the Clinical Pharmacist for questions. Specimen Blood Performing Organization Address City/[facility]/Zipcode Ph one Number MAIN LAB [address] [place] [address] * ECG-SCAN (11/07/2019 12:00 AM HIGHBALLER) Narrative Performed At This result has an attachment that is n ot available. Ordered by an unspecified provider. * CT NECK EXTERNAL IMAGING (10/12/2019 12:00 AM HIGHBALLER) Specimen Narrative Performed At This order has been auto finalized and does not contain a result. from Last 3 Months Insurance Type Payer Benefit Subscriber ID Effective Phone Address Plan / Dates Group Medicare AETNA MEDICARE AETNA xxxxxxxxxxxx 2019-P MEDICARE resent PPO Medicaid [facility] MEDICAID [place] [facility] xxxxxxxxxxx 2019-P COMMUNITY resent PLAN [place] Advance Directives Patient Spragger Explanation Type Date Recorded Advance Directive/DPOA
--- OUTSIDE RECORDS SUMMARY | 2019-12-22 13:41 | XMS REPORT | Encounter Summary ---
Author Author [facility] Organization [facility] Address Unknown Phone Unavailable Care Team Providers Care Insole Presser Name Role Phone Eunice Vidal MD PCP Reason for Visit * Reason Comments Surgery Encounter Details Care Team Description Date Type Department Reny Vaca RN Surgery 12/10/2019 Telephone [facility] [address] [place] [address] Social History Date Tobacco Use [...]
--- OUTSIDE RECORDS SUMMARY | 2019-12-22 13:41 | XMS REPORT | Encounter Summary ---
Author Author [facility] Organization [facility] Address Unknown Phone Unavailable Care Team Providers Care Corn Husk Baler Name Role Phone Eunice Vidal MD PCP Reason for Visit * Reason Comments Other Reschedule Surgery Encounter Details Care Team Description Date Type Department BurNaman MD [address] Ortho/Med Pavilion Lvl [address] [place], [place] [phone] Other (Reschedule Surgery) 11/12/2019 Telephone The [facility] [address] [place] [address] Social History Date Tobacco Use [...] Reny Vaca RN - 11/13/2019 9:57 AM ADMINISTRATIVE PROJECT COORDINATOR Spoke with the patient's son who spoke [...] before 4 pm when the OR calls. NISTRATIVE PROJECT COORDINATOR * Telephone Encounter - Galo Laguna - 11/12/2019 4:20 PM ADMINISTRATIVE PROJECT COORDINATOR Patient's son Marvin called to cancel and reschedule the surgery scheduled for t omorrow with Dr Mir. Patient was feeling very weak and unable to make the surge ry tomorrow. He requested a call back to get it rescheduled. NISTRATIVE PROJECT COORDINATOR documented in this encounter Plan of Treatment Not on filedocumented as of this encounter Visit Diagnoses Not on filedocumented in this encounter
--- OUTSIDE RECORDS SUMMARY | 2019-12-22 13:41 | XMS REPORT | Encounter Summary ---
Author Author [facility] Organization [facility] Address Unknown Phone Unavailable Care Team Providers Care Student Recruiter Name Role Phone Eunice Vidal MD PCP Encounter Details Care Team Description Date Type Department Naman Mir MD [address] Ortho/Med Pavilion [address] [place] [address] [phone] 11/13/2019 Prep for Case The [facility] [address] [place] [phone] Social History Date Tobacco Use Types Packs/Day [...]
--- OUTSIDE RECORDS SUMMARY | 2019-12-22 13:41 | XMS REPORT | Encounter Summary ---
Author Author [facility] Organization [facility] Address Unknown Phone Unavailable Care Team Providers Care Real Estate Rep Name Role Phone Eunice Vidal MD PCP Encounter Details Care Team Description Date Type Department Reny Vaca RN 11/08/2019 Documentation [facility] [address] [place] [address] Social History Date Tobacco Use [...] Reny Vaca RN - 11/08/2019 2:10 PM COMPANY TANKER TRUCK DRIVER Prior authorization for [employer] for PET scan scheduled on 11/12/[address], [place] initiated with case # [id number] and clinicals faxed to . ANY TANKER TRUCK DRIVER documented in this encounter Plan of Treatment Not on filedocumented as of this encounter Visit Diagnoses Not on filedocumented in this encounter
--- OUTSIDE RECORDS SUMMARY | 2019-12-22 13:42 | XMS REPORT | Encounter Summary ---
Author Author [facility] Organization [facility] Address Unknown Phone Unavailable Care Team Providers Care Molecular Biology Professor Name Role Phone Eunice Vidal MD PCP Encounter Details Care Team Description Date Type Department Naman Mir MD [address] Ortho/Med Pavilion [address] [place], [place] [phone] Atrial fibrillation, unspecified type (H CC) (Primary Dx); Larynx cancer (HCC) 11/07/2019 Ancillary [facility] [address] [place], [place] [phone] Anesthesia Record Responsible Anesthesiologist Anesthesia Start Time [...] Comments Vital Sign 140/85 11/07/2019 7:22 AM STATION DETECTIVE Blood Pressure 85 11/07/2019 7:22 AM STATION DETECTIVE Pulse 36.6 C (97.8 F) 11/07/2019 7:22 AM STATION DETECTIVE Temperature - - Respiratory Rate 96% 11/07/2019 7:22 AM STATION DETECTIVE Oxygen Saturation - - Inhaled Oxygen Concentration 54 kg (119 lb) 11/07/2019 7:22 AM STATION DETECTIVE Weight 160 cm (5' 3") 11/07/2019 7:22 AM STATION DETECTIVE Height 21.08 11/07/2019 7:22 AM STATION DETECTIVE Body Mass Index documented in this encounter [...] Liv Cazares RN - 11/07/2019 7:30 AM STATION DETECTIVE GENERAL INFORMATION Before you come to the [...] and any other valuables at home. The [facility] is not responsible for the loss or breakage of persona l items. Remove nail ukrainian, makeup and all jewelry (including piercings) before comin g to the hospital. The morning of your procedure: brush your teeth and tongue do not smoke do not shave the area where you will have surgery What to bring to the hospital ID/ Insurance Card [place] card Official documents for legal guardianship Copy [...] not receive a c all, please call [phone] before 4:30pm or [phone] after 4:30pm. Notify us at [facility]: if you need to cancel your procedure if you are going to be late [facility] [address] [place] [address] ? Park in the P5 parking garage located at [address] [address] ? Right Of [address] Manager parking is available in front of [facility] between the hours of 7:00 am and 4:00 pm Tuesday through Tuesday. ? If parking in the P5 garage, take the east elevators in the parking garage to the second level and walk to the entrance of the [facility]. ? Enter through the 1st floor main entrance and check in with Information Desk. ? ION DETECTIVE * Pre-Anesthesia Medication Instructions* Radha Vaca PHARMD - 11/07/2019 7:30 AM STATION DETECTIVE YOUR MEDICATION LIST albuterol 0.083% (PROVENTIL) 2.5 [...] or medication questions before surgery. ? E-mail: [email or web address] ? Before going home from the hospital, please ask your doctor when you should re-s tart any medicine that was stopped for surgery. ION DETECTIVE documented in this encounter Progress Notes * Lynn Cheney PHARMD - 11/07/2019 7:30 AM STATION DETECTIVE PAC Anticoagulant Plan Note: Gracie Sloan was [...] they verbalize d understanding. Lynn Cheney PHARMD ION DETECTIVE documented in this encounter Plan of Treatment Order Schedule Name Type Priority Associated Diag noses Ordered: 11/07/2019 ECG 12-LEAD ECG Routine Atrial fibrilla tion, unspecified type (HCC) documented as of this encounter Procedures Comments Procedure Name Priority Date/Time Associated Diag nosis HC CBC,AUTOMATED Routine 11/07/2019 Larynx cancer (HCC) 8:39 AM STATION DETECTIVE HC COMPREHENSIVE Routine 11/07/2019 Larynx cancer (HCC) METABOLIC PANEL 8:39 AM STATION DETECTIVE ECG-SCAN 11/07/2019 12:00 AM STATION DETECTIVE documented in this encounter Results * COMPREHENSIVE METABOLIC PANEL (11/07/2019 8:39 AM STATION DETECTIVE) Sodium 130 (L) 137 - 147 MMOL/L [...] >60 >60 mL/min [facility] Comment: [place] The eGFR is not validated f or use in drug dosing adjustments. Continue to use estimated creatinine clearance per dosing reference text. Please contact the Clinical Pharmacist for questions. eGFR >60 >60 mL/min [facility] [place] Comment: The eGFR is not validated for use in drug dosing adjustments. Continue to use estimated creatinine clearance per dosing reference text. Please contact the Clinical Pharmacist for questions. Specimen Blood Performing Organization Address City/State/Zipcode Ph one Number MAIN LAB [address] [place] [address] * CBC (11/07/2019 8:39 AM STATION DETECTIVE) White Blood 7.7 4.5 - 11.0 K/UL [...] MAIN LAB Specimen Blood Performing Organization Address [facility] Ph one Number MAIN LAB [address] [place] [address] * ECG-SCAN (11/07/2019 12:00 AM STATION DETECTIVE) Narrative Performed At This result has an attachment that is n ot available. Ordered by an unspecified provider. 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
--- OUTSIDE RECORDS SUMMARY | 2019-12-22 13:42 | XMS REPORT | Encounter Summary ---
Author Author [facility] Organization [facility] Address Unknown Phone Unavailable Care Team Providers Care Redye Hand Name Role Phone PCP Unavailable Encounter Details Care Team Description Date Type Department 10/12/2019 [facility] [address] [address] Social History Date Tobacco Use Types Packs/Day [...] NECK EXTERNAL IMAGING Routine 10/12/2019 12:00 AM BREAD RACKER documented in this encounter Results * CT NECK EXTERNAL IMAGING (10/12/2019 12:00 AM BREAD RACKER) Specimen Narrative Performed At This order has been auto finalized and does not contain a result. documented in this encounter Visit Diagnoses Not on filedocumented in this encounter
--- OUTSIDE RECORDS SUMMARY | 2019-12-22 13:42 | XMS REPORT | Encounter Summary ---
Author Author [facility] Organization [facility] Address Unknown Phone Unavailable Care Team Providers Care Terrazzo Installer Name Role Phone Eunice Vidal MD PCP Reason for Referral * Consult, Test & Treat (Routine) Referred By Contact Referred To Contact Status Reason Specialty Diagnoses / Procedures Naman Mir MD [address] [facility] Lvl [address] [place] [address] New Request Specialty Services Diagnoses Required Laryngeal cancer (HCC) * Consult, Test & Treat (Routine) Referred By Contact Referred To Contact Status Reason Specialty Diagnoses / Procedures Naman Mir MD [address] [facility] Lvl [address] [place] [address] New Request Specialty Services Diagnoses Required Laryngeal cancer (HCC) Reason for Visit * Reason Comments Other laryngeal CA * Consult, Test & Treat (Routine) Referred By Contact Referred To Contact Status Reason Specialty Diagnoses / Procedures Mike Huff MD [address] [address] Cc - Ww Cl Exm/Proc [facility] [address] No Auth Needed Oncology Diagnoses hx scca of epiglottis now recurrence Encounter Details Care Team Description Date Type Department Naman Mir MD [address] [facility] Lvl [address] [place] [address] [phone] Laryngeal cancer (HCC) (Primary Dx); Squamous cell carcinoma of supraglottis (HCC); Pharyngeal dysphagia; Severe protein-calorie malnutrition (HCC) 10/31/2019 Office Visit [facility] [address] [facility] Level [address] [place] [phone] Social History Date Tobacco Use Types Packs/Day [...] Reny Vaca RN - 10/31/2019 12:30 PM TOOLER General Instructions for Surgery Patients You are scheduled for surgery on: 11/13/2019 Your surgeon is: Naman Mir MD Your nurse coordinator is: Reny Vaca RN Contact Information: Main Office: [phone], hours Tuesday thru Tuesday 8:00am-4:30pm option #1. Dr. Decker: Please ask for your nurse. Dr. Mir: Please ask for your nurse. If you are unable to contact your physician, please contact same day surgery When to arrive A labor service representative from the operating room will call after 3pm on the last s day before your procedure with information about when you should arrive at the hospital. If your procedure is scheduled for Tuesday, you will receive this call on Tuesday. If you do not receive a call from the operating room labor service representative about your a rrival time by 4pm, call the Preoperative Evaluation Clinic. Between 3:30pm and 6pm - Call or (from [place] only) . After 6pm - Call . If you are coming from out of town and staying overnight in [place], please provide us with your local number. It is very important that we are able to cont act you. Parking Park in the parking garage off of [facility]. [facility] through the 1st floor main Entrance and check in wi th admitting on 1st floor. Bringing Visitors As a courtesy to other families and visitors, please limit the number of your nm iting room visitors to two. What to bring? Bring a list of all medications you are currently taking. Bring your insurance i nformation or insurance/prescription cards. If you have a living will or a durab le power of respiratory medicine physician, please bring a copy to be included [...] piercings. Do not wear make-up or fingernail greek. Medications Please make us aware of any and all prescription, [id number], or supplemen ts you are taking. The [...] aspirin without seeking the Approval of your Emergency Medical Tech. Non-Steroidal Anti-Inflammatory Drugs (NSAIDS): such as: Aspirin (Ecotrin, Exced rin, and Pamprin), Ibuprofen (Advil, Motrin), Naproxyn (Aleve) or any other anti -inflammatory medication Other medications to avoid: Lortab, Darvocent-N, or cold medications such as Alk a [place], Sine-Off, Vitamin E (more than 400units). If [...] sore throat, nausea, vomiting or other illness. [facility] Address and Instructions [facility] [place], [place] [address] [place] [address] is on the main [facility] at the northwest corner of [address] [place] [address] and [facility]. We are pleased to serve you and appreciate your trust in our care. On the day of your procedure: Park in the P5 parking garage on the corner of [address] [place] [address] and [facility]. The fee is $3 with validation; bring your ticket to any information desk for validation. Enter [facility] through the main entrance on the street level. Check in at the admitting desk on Level 1. When your registration is complete, check in with the waiting mushroom laborer. You will be escorted to the location of your procedure. Your family or friends may wait comfortably in the common areas on Level 1. ER documented in this encounter Progress Notes * Naman Mir MD - 10/31/2019 12:30 PM TOOLER Chief Complaint Patient presents with Other laryngeal CA History of Present Illness: Gracie Sloan is a 74 y.o. year old female evaluated on 10/31/2019, in the Otolary ngology-Head and Neck Surgery Clinic at the [facility]. The patient was referred by Dr. [...] ago. She has never used smokeless toba national account director. She reports previous alcohol use. She reports [...] I would te ntatively stage as a [id number] lesion based on exam and imaging. PLAN: [...] the E/M visit, discussed case with re logan and concur with resident documentation of history, physical exam, assessm ent, and treatment plan unless otherwise noted. Staff name: Naman Mir MD Date: 10/31/2019 ER * Reny Vaca, RN - 10/31/2019 12:30 PM TOOLER Pre Visit Planning- New Patient Records received: Yes Orders have been NA Patient inactive in [facility]. Imaging: Yes Special equipment: N/A CT NECK EXTERNAL IMAGING This order has been auto finalized and does not contain a result. ER documented in this encounter Plan of Treatment [...]
--- OUTSIDE RECORDS SUMMARY | 2019-12-22 13:42 | XMS REPORT | Encounter Summary ---
Author Author [facility] Organization [facility] Address Unknown Phone Unavailable Care Team Providers Care Patents Examiner Name Role Phone Eunice Vidal MD PCP Encounter Details Care Team Description Date Type Department Nelida Buenrostro MD [address] [address] [phone] Raymond Flores MD [address] [address] [phone] 11/13/2019 Anesthesia [facility] [place] [address] [phone] Anesthesia Record Responsible Anesthesiologist Anesthesia Start Time [...] Nelida Buenrostro MD - 11/07/2019 7:47 AM ASSOCIATE DIRECTOR OF SALES Anesthesia Pre-Procedure Evaluation Name: Gracie Sloan : 1945 Age: 74 y.o. Se x: female Procedure Info: Procedure Information Date/Time: 11/13/19 0800 Procedures: TRACHEOSTOMY PLANNED (N/A ) - CASE LENGTH 2 HOURS, REQUEST 1ST START DIRECT MICROLARYNGOSCOPY WITH BIOPSY (N/A ) BRONCHOSCOPY DIAGNOSTIC WITH CELL WASHING - FLEXIBLE (N/A ) RIGID ESOPHAGOSCOPY WITH SPECIMEN COLLECTION (N/A ) Location: [facility] OR08 / CA3 OR/Periop Surgeon: Naman Mir [...] Yes Hypertension, No valvular problems/murmurs No past DE, Palpitations Dysrhythmias (Pradaxa self-discontinued 10/24/19; metoprolol); atrial [...] a poor surgical candidate due to her COIL WINDER STRAP D and other medical comorbidities. I do [...] CMP, ECG MANDIE: Dr. Neri (cardiology, [facility])--most recent OV note, ECHO, stress, cardiac cath, carotid duplex consult: none Patient hand-delivered cardiac clearance from Dr. Neri ([facility] ) dated 11/05/19. Patient self-discontinued (without direction from cardiology) Pradaxa 10/24/19 with instruction on clearance letter for 5 day hold of anticoagu lation (discrepancy in timing not noted). Radha Vaca PharmD, contacting [facility] ient's protective services case worker for clarification of anticoagulation hold in interim between PAT appointment and DOS. Per Radha after discussion with cardiology office, patient's anticoagulation will be discussed with protective services case worker with recommendat ions to follow--all recommendations to [...] to DOS. Patient is currently drinking En sure/[place] instant breakfast for nutrition, as she is unable to swallow micki d food. Patient encouraged to continue doing this with possible Gatorade or nitesh ctrolyte drinks to supplement. States she will do this. Repeat BMP ordered DOS . CIATE DIRECTOR OF SALES documented in this encounter Plan of Treatment Not on filedocumented as of this encounter Visit Diagnoses Not on filedocumented in this encounter
--- OUTSIDE RECORDS SUMMARY | 2019-12-22 13:42 | XMS REPORT | Encounter Summary ---
Author Author [facility] Organization [facility] Address Unknown Phone Unavailable Care Team Providers Care Fire Extinguisher Inspector Name Role Phone Eunice Vidal MD PCP Reason for Visit * Reason Comments Other Encounter Details Care Team Description Date Type Department BurNaman MD [address] [facility] Lvl [address]C [place], [place] [phone] Other 11/02/2019 Telephone [facility] [address] [place] [phone] Social History Date Tobacco Use Types Packs/Day [...] Reny Vaca RN - 11/02/2019 3:44 PM ASSISTANT SALES MANAGER Notified patient of the PAT appointment. Day, time and location noted. Patient 's son is still concerned about his wait at the initial consult. Listened to th e patient's son express his concern for 10+ minutes. Expressed that this office would make every effort to decrease wait as able in the future. Order for the PET scan faxed to [facility] in [place]. STANT SALES MANAGER * Telephone Encounter - Rekha Chaparro - 11/02/2019 1:30 PM ASSISTANT SALES MANAGER Pt son would like a call back to discuss PET scans and upcoming appointments. STANT SALES MANAGER documented in this encounter Plan of Treatment Not on filedocumented as of this encounter Visit Diagnoses Not on filedocumented in this encounter
--- OUTSIDE RECORDS SUMMARY | 2019-12-22 13:42 | XMS REPORT | Encounter Summary ---
Author Author [facility] Organization [facility] Address Unknown Phone Unavailable Care Team Providers Care Healthcare Interpreter Name Role Phone Eunice Vidal MD PCP Encounter Details Care Team Description Date Type Department Naman Mir MD [address] [facility] Lvl [address] [place], [place] [phone] Cancer of larynx (HCC) (Primary Dx) 10/31/2019 Prep for Case [facility] [address] [place] [phone] Social History Date Tobacco Use Types Packs/Day [...]
--- OUTSIDE RECORDS SUMMARY | 2019-12-22 13:42 | XMS REPORT | Encounter Summary ---
Author Author [facility] Organization [facility] Address Unknown Phone Unavailable Care Team Providers Care Mat Machine Tender Name Role Phone PCP Unavailable Reason for Visit * Reason Comments Navigation Assessment Encounter Details Care Team Description Date Type Department Evie Hendricks RN Navigation Assessment 10/25/2019 Telephone [facility] [address] [phone] Social History Date Tobacco Use Types Packs/Day Years Used Never Assessed Sex Assigned at Date Recorded Not on file Industry Job Start Date Occupation Not on file Not on file Not on file Travel End Travel History Travel Start No recent travel history available. documented as of this encounter Miscellaneous Notes * Telephone Encounter - Evie Hendricks RN - 10/25/2019 1:10 PM SENIOR PROJECT ACCOUNTANT Navigation Intake Assessment Document Patient Name: Gracie Sloan : 1945 Insurance: [facility]/ [facility] Appointment Info: Future Appointments Date Time Provider Department Center 10/26/2019 1:00 PM Juan Decker MD [facility] Diagnosis & Reason for Visit: Hx [...] the right hyoid and thyroid cartilage. Comments: OR PROJECT ACCOUNTANT documented in this encounter Plan of Treatment Not on filedocumented as of this encounter Visit Diagnoses Not on filedocumented in this encounter
--- OUTSIDE RECORDS SUMMARY | 2019-12-22 13:42 | XMS REPORT | Encounter Summary ---
Author Author [facility] Organization [facility] Address Unknown Phone Unavailable Care Team Providers Care Coat Finisher Name Role Phone Eunice Vidal MD PCP Reason for Visit * Reason Comments Follow Up Erroneous encounter-disregard Encounter Details Care Team Description Date Type Department Eunice Vidal MD [address] [place] [address] Yesenia Hager MA,CCC-ACCOUNTING OFFICE MANAGER [address] [facility] Lvl [address] [place] [phone] ERRONEOUS ENCOUNTER--DISREGARD (Primary Dx) 10/31/2019 Clinical [facility] [address] [place] [phone] Social History Date Tobacco Use Types Packs/Day [...] Comments Vital Sign 129/79 10/31/2019 1:09 PM PRINTED FORMS PROOFREADER Blood Pressure 84 10/31/2019 1:09 PM PRINTED FORMS PROOFREADER Pulse - - Temperature - - Respiratory Rate - - Oxygen Saturation - - Inhaled Oxygen Concentration - - Weight 160 cm (5' 3") 10/31/2019 1:09 PM PRINTED FORMS PROOFREADER Height - - Body Mass Index documented [...] this encounter Progress Notes * Yesenia Hager MA,CCC-ACCOUNTING OFFICE MANAGER - 10/31/2019 2:00 PM PRINTED FORMS PROOFREADER This encounter was created in error. Please disregard. T documented in this encounter Plan of Treatment Not on filedocumented as of this encounter Visit Diagnoses Diagnosis ERRONEOUS ENCOUNTER--DISREGARD documented in this encounter
--- OUTSIDE RECORDS SUMMARY | 2019-12-22 13:42 | XMS REPORT | Encounter Summary ---
Author Author [facility] Organization [facility] Address Unknown Phone Unavailable Care Team Providers Care Corporate Planning Manager Name Role Phone Eunice Vidal MD PCP Reason for Visit * Reason Comments Other Fax number Encounter Details Care Team Description Date Type Department Juan Decker MD [address] [facility] Lvl [address] [place], [place] [phone] Other (Fax number) 11/05/2019 Telephone [facility] [address] [place] [address] Social History Date Tobacco Use [...] Reny Vaca RN - 11/05/2019 1:39 PM ROVING FRAME TENDER Faxed as requested to [facility] to get the PET scan scheduled. NG FRAME TENDER * Telephone Encounter - Yari Cortez - 11/05/2019 10:48 AM ROVING FRAME TENDER [facility] from [place], [place] called and left a Vm about regarding a fax numbe r to them, they left fax number [phone] NG FRAME TENDER documented in this encounter Plan of Treatment Not on filedocumented as of this encounter Visit Diagnoses Not on filedocumented in this encounter
--- OUTSIDE RECORDS SUMMARY | 2019-12-22 13:42 | XMS REPORT | Encounter Summary ---
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
[2019-12-22 13:55] LABS: BASOPHILS % (AUTO) 0 % (0-10); EOSINOPHILS # (AUTO) 0.1 10^3/uL (0.0-0.3); EOSINOPHILS % (AUTO) 1 % (0-10); HEMATOCRIT 28 % (35-52); HEMOGLOBIN 9.2 G/DL (11.5-16.0); LYMPHOCYTES # (AUTO) 1.4 X 10^3 (1.0-4.0); LYMPHOCYTES % (AUTO) 10 % (12-44); MEAN CORPUSCULAR HEMOGLOBIN 30 PG (25-34); MEAN CORPUSCULAR HGB CONC 33 G/DL (32-36); MEAN CORPUSCULAR VOLUME 91 FL (80-99); MEAN PLATELET VOLUME 7.9 FL (7.4-10.4); MONOCYTES % (AUTO) 7 % (0-12); NEUTROPHILS # (AUTO) 11.8 X 10^3 (1.8-7.8); NEUTROPHILS % (AUTO) 82 % (42-75); PLATELET COUNT 823 10^3/uL (130-400); RED CELL DISTRIBUTION WIDTH 15.7 % (10.0-14.5); WHITE BLOOD COUNT 14.3 10^3/uL (4.3-11.0)
--- OUTSIDE RECORDS SUMMARY | 2019-12-22 13:57 | XMS REPORT | Continuity of Care Document ---
Author Organization Unknown Address Unknown Phone Unavailable Allergies Active Description Code Type Severity Reaction Onset Reported/Identified Relationship to Patient Clinical Status Yes hydrocodone [id number] Drug Aller gy Unknown N/A 11/17/2015 Yes hydrocodone [id number] Drug Aller gy Mild N/A 06/28/2018 Yes warfarin [id number] Drug Allergy Moderate BLISTERS 12/21/2019 Yes hydrocodone [id number] Drug Aller gy Mild Pt has received 12/21/2019 Medications There is no data. 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 5 ENTHESOPATHY OF HIP 05/17/2014 LELE HUGHES MD Ot 729. 1 MYALGIA AND MYOSITIS NOS 05/17/2014 LELE HUGHES MD Ot V58. 61 ANTICOAGULANTS,LT,CURRENT USE 05/17/2014 LELE HUGHES MD Ot V58. 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 1 TOBACCO USE DISORDER 08/18/2014 OCRNELIO BENEDICT MD A Ot 427. 31 ATRIAL FIBRILLATION 08/18/2014 CORNELIO BENEDICT MD Ot 466. 0 ACUTE BRONCHITIS 08/18/2014 CORNELIO BENDEICT MD A Ot 724. 5 BACKACHE NOS [...] SHAYY L Ot 783.21 12/31/2014 GAGAN LAU, [facility] Ot V72.84 12/31/2014 RICHELLE LAU, SHAYY L [...] LAU, SHAYY L Ot 255.9 02/24/2015 RICHELLE ALU, SHAYY L Ot 789.30 02/24/2015 LELE HUGHES MD Ot 338. 4 02/24/2015 LELE HUGHES MD Ot 721. 3 02/24/2015 LELE HUGHES MD Ot 722. 52 02/24/2015 LELE HUGHES MD Ot 729. 1 02/24/2015 LELE HUGHES MD Ot V58. 69 02/24/2015 OBINNA PRASAD [...] USE 05/22/2015 OBINNA PRASAD MD, Ot 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) USE OF ANTICOAGULANT 05/22/2015 OBINNA PRASAD [...] 10/10/2015 LELE HUGHES MD, Ot Z79. 01 SNF (CURRENT) USE OF ANTICOAGULANT 10/10/2015 LELE HUGHES MD Ot Z79.899 OTHER SNF (CURRENT) DRUG THERAPY 11/17/2015 Ot 458.9 11/18/2015 [...] Z86.010 PERSONAL HISTORY OF COLONIC POLYPS 01/30/2016 [place] KIM BAER Ot K21. 9 GASTRO-ESOPHAGEAL REFLUX DISEASE WITHOUT 01/30/2016 [place] ELVER BAERTT Angus Ot K22. 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 52 LUMB/LUMBOSAC DISC DEGEN 08/09/2016 LELE HUHGES MD Ot 729. 1 MYALGIA AND MYOSITIS [...] .5 VOCAL CORD DISEASE NEC 08/09/2016 OBINNA PRSAAD MD Ot J18 .9 PNEUMONIA, UNSPECIFIED ORGANISM [...] 09/13/2016 TOSHIA DUENAS DO Ot Z79.899 OTHER SNF (CURRENT) DRUG THERAPY 09/15/2016 TOSHIA DUENAS DO Ot F17.210 NICOTINE DEPENDENCE, CIGARETTES, UNCOMPL 09/15/2016 TOSHIA DUENAS DO Ot I48.2 CHRONIC ATRIAL FIBRILLATION 09/15/2016 TOSHIA DUENAS DO Ot I50.9 HEART FAILURE, UNSPECIFIED 09/15/2016 TOSHIA DUENAS DO Ot J44.1 CHRONIC OBSTRUCTIVE PULMONARY DISEASE W 09/15/2016 TOSHIA DUENAS DO Ot R06.02 SHORTNESS OF BREATH 09/15/2016 TOSHIA DUENAS DO Ot Z79.899 OTHER AUTO MECHANICS INSTRUCTOR (CURRENT) DRUG THERAPY 09/15/2016 TOSHIA DUENAS DO Ot F17.210 NICOTINE DEPENDENCE, CIGARETTES, UNCOMPL 09/15/2016 TOSHIA DUENAS DO Ot I48.2 CHRONIC ATRIAL FIBRILLATION 09/15/2016 TOSHIA DUENAS DO Ot I50.9 HEART FAILURE, UNSPECIFIED 09/15/2016 TOSHIA DUENAS DO Ot J44.1 CHRONIC OBSTRUCTIVE PULMONARY DISEASE W 09/15/2016 TOSHIA DUENAS DO Ot R06.02 SHORTNESS OF BREATH 09/15/2016 TOSHIA DUENAS DO Ot Z79.899 OTHER AUTO MECHANICS INSTRUCTOR (CURRENT) DRUG THERAPY 09/15/2016 LELE HUGHES MD [...] 11/05/2016 LELE HUGHES MD Ot Z79.899 OTHER AUTO MECHANICS INSTRUCTOR (CURRENT) DRUG THERAPY 11/07/2016 NIVIA LAU, DIALLO S Ot J44.9 CHRONIC OBSTRUCTIVE PULMONARY DISEASE, U 05/11/2017 VERONICA LAU FACC, ALI FACP CCDS Ot I73.89 OTHER SPECIFIED PERIPHERAL VASCULAR DISE 05/11/2017 Ot 458.9 HYPO TENSION NOS 05/11/2017 Ot 789.01 ABD OMINAL PAIN, RIGHT UPPER QUADRANT 05/11/2017 Ot 401.9 HYPE RTENSION NOS 05/11/2017 Ot 440.20 ATH EROSCLEROSIS ELEM ARTERIES EXTREMIT 05/11/2017 Ot 587 RENAL SCLEROSIS [...] OHYPOPHYSIS DIS NEC 05/11/2017 Ot 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 05/11/2017 Ot 401.9 HYPE RTENSION NOS 05/11/2017 Ot 428.0 SEVERINO ESTIVE HEART FAILURE NOS 05/11/2017 Ot 433.30 MUL T BILTRAL ARTERY OCCLUSION WO CEREBRA 05/11/2017 Ot V76.12 OTH SCREEN MAMMO- MALIGN NEOPLASM OF GUERO 05/11/2017 Ot 253.6 NEUR OHYPOPHYSIS DIS NEC 05/11/2017 Ot 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 05/11/2017 Ot 496 CHR AI [...] ESTES Ot I25.10 ATHSCL HEART DISEASE OF ELEM CORONARY 05/28/2017 EMELY ESTES Ot I48.91 UNSPECIFIED [...] TAP-WATER, INITIA 05/28/2017 EMELY ESTES Ot Y92.[address] [facility] [address] IN [facility] NON[facility] (PRIVATE 05/28/2017 EMELY ESTES Ot Z79.82 SNF (CURRENT) USE OF ASPIRIN 05/28/2017 EMELY ESTES [...] ESTES Ot I25.10 ATHSCL HEART DISEASE OF ELEM CORONARY 06/02/2017 EMELY ESTES Ot I48.91 UNSPECIFIED ATRIAL FIBRILLATION 06/02/2017 EMELY ESTES Ot J43.9 EMPHYSEMA, UNSPECIFIED 06/02/2017 EMELY ESTES Ot K21.9 GASTRO-ESOPHAGEAL REFLUX DISEASE WITHOUT 06/02/2017 EMELY ESTES Ot K59.00 CONSTIPATION, UNSPECIFIED 06/02/2017 EMELY SETES Ot S09.90XA UNSPECIFIED INJURY OF HEAD, INITIAL [...] EMELY ESTES Ot Y92.[address] IN [facility]/2017 EMELY ESTES Ot Z79.82 SNF (CURRENT) USE OF ASPIRIN 06/02/2017 EMELY ESTES [...] ESTES Ot I25.10 ATHSCL HEART DISEASE OF ELEM CORONARY 06/04/2017 EMELY ESTES Ot I48.91 UNSPECIFIED [...] EMELY ESTES Ot Y92.[address] IN [facility] NON-[facility] (PRIVATE 06/04/2017 EMELY ESTES Ot Z79.82 SNF (CURRENT) USE OF ASPIRIN 06/04/2017 BONNY PA, EMELY L Ot Z82.49 FAMILY HX OF ISCHEM HEART DIS AND OTH DI 06/04/2017 EMELY ESTES Ot Z87.09 PERSONAL HISTORY OF OTHER DISEASES OF TH 06/04/2017 EMELY ESTES Ot Z87.19 PERSONAL HISTORY OF OTHER DISEASES OF TH 06/07/2017 Ot 458.9 HYPO TENSION NOS 06/07/2017 Ot 440.20 ATH EROSCLEROSIS ELEM ARTERIES EXTREMIT 06/07/2017 Ot 587 RENAL SCLEROSIS [...] OHYPOPHYSIS DIS NEC 06/07/2017 Ot 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 06/07/2017 Ot 401.9 HYPE RTENSION NOS 06/07/2017 Ot 428.0 SEVERINO ESTIVE HEART FAILURE NOS 06/07/2017 Ot 433.30 MUL T BILTRAL ARTERY OCCLUSION WO CEREBRA 06/07/2017 Ot V76.12 OTH SCREEN MAMMO- MALIGN NEOPLASM OF GUERO 06/07/2017 Ot 253.6 NEUR OHYPOPHYSIS DIS NEC 06/07/2017 Ot 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 06/07/2017 Ot 496 CHR AI [...] DEGREE OF LEFT THIGH, INI 06/29/2017 RONNY BENDEICT MD, Ot T65.292A TOXIC EFFECT OF TOBACCO AND NICOTINE, SE 06/29/2017 RONNY BENEDICT MD Ot X12.XXXA CONTACT WITH OTHER HOT FLUIDS, INITIAL E 06/29/2017 RONNY BENEDICT MD Ot Y93.G 3 ACTIVITY, COOKING AND BAKING 07/06/2017 ECTOR DORSEY [employer] Ot T21.25XA BURN OF SECOND DEGREE OF BUTTOCK, INITIA 07/06/2017 ECTOR DORSEY [employer] Ot T24.212A BURN OF SECOND DEGREE OF LEFT THIGH, INI 07/06/2017 ECTOR DORSEY [employer] AS[employer]BLER Ot T65.292A TOXIC EFFECT OF TOBACCO AND NICOTINE, SE 07/06/2017 ECTOR DORSEY [employer] ASSEMBLER Ot X12.XXXA CONTACT WITH OTHER HOT FLUIDS, [...] DEGREE OF BUTTOCK, INITIA 07/21/2017 ECTOR DORSEY [employer] ASSEMBLER Ot T24.212A BURN OF SECOND DEGREE OF LEFT THIGH, INI 07/21/2017 ECTOR DORSEY SMALL [employer]ATE ASSEMBLER Ot T65.292A TOXIC EFFECT OF TOBACCO AND NICOTINE, SE 07/21/2017 ECTOR DORSEY [employer] ASSEMBLER Ot X12.XXXA CONTACT WITH OTHER HOT FLUIDS, [...] OHYPOPHYSIS DIS NEC 02/23/2018 Ot 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 02/23/2018 Ot 401.9 HYPE RTENSION NOS 02/23/2018 Ot 428.0 SEVERINO ESTIVE HEART FAILURE NOS 02/23/2018 Ot 433.30 MUL T BILTRAL ARTERY OCCLUSION WO CEREBRA 02/23/2018 Ot V76.12 OTH SCREEN MAMMO- MALIGN NEOPLASM OF GUERO 02/23/2018 Ot 253.6 NEUR OHYPOPHYSIS DIS NEC 02/23/2018 Ot 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 02/23/2018 Ot 496 CHR AI [...] Ot 921 .0 BLACK EYE NOS 02/23/2018 BOINNA PRASAD MD Ot 959.01 HEAD INJURY, NOS [...] WITH OTHER HOT FLUIDS, INITIAL E 02/23/2018 RNONY BENEDICT MD Ot Y93.G 3 ACTIVITY, COOKING [...] OHYPOPHYSIS DIS NEC 03/01/2018 Ot 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 03/01/2018 Ot 401.9 HYPE RTENSION NOS 03/01/2018 Ot 428.0 SEVERINO ESTIVE HEART FAILURE NOS 03/01/2018 Ot 433.30 MUL T BILTRAL ARTERY OCCLUSION WO CEREBRA 03/01/2018 Ot V76.12 OTH SCREEN MAMMO- MALIGN NEOPLASM OF GUERO 03/01/2018 Ot 253.6 NEUR OHYPOPHYSIS DIS NEC 03/01/2018 Ot 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 03/01/2018 Ot 496 CHR AI [...] .5 VOCAL CORD DISEASE NEC 03/01/2018 OBINNA PARSAD MD Ot J18 .9 PNEUMONIA, UNSPECIFIED ORGANISM [...] MD, Ot I25.10 ATHSCL HEART DISEASE OF ELEM CORONARY 03/01/2018 RAYNA FARAH MD Ot I48.91 [...] ABNORMALITIES 03/01/2018 RAYNA FARAH MD Ot 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) USE OF ANTICOAGULANT 03/01/2018 RAYNA FARAH MD Ot Z79.89 9 OTHER SNF (CURRENT) DRUG THERAPY 03/01/2018 RAYNA FARAH MD, Ot 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 STATUS 03/07/2018 RAYNA FARAH MD Ot D12.5 BENIGN NEOPLASM OF SIGMOID COLON 03/07/2018 RAYNA FARAH MD Ot I11.0 HYPERTENSIVE HEART DISEASE WITH HEART FA 03/07/2018 RAYNA FARAH MD, Ot I25.10 ATHSCL HEART DISEASE OF ELEM CORONARY 03/07/2018 RAYNA FARAH MD Ot I48.91 [...] ABNORMALITIES 03/07/2018 RAYNA FARAH MD, Ot Z79.01 SNF (CURRENT) USE OF ANTICOAGULANT 03/07/2018 RAYNA FARAH MD, Ot Z79.89 9 OTHER AUTO MECHANICS INSTRUCTOR (CURRENT) DRUG THERAPY 03/07/2018 RAYNA FARAH MD, Ot 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 STATUS 03/09/2018 RAYNA FARAH MD, Ot D12.5 BENIGN NEOPLASM OF SIGMOID COLON 03/09/2018 RAYNA FARAH MD, Ot I11.0 HYPERTENSIVE HEART DISEASE WITH HEART FA 03/09/2018 RAYNA FARAH MD, Ot I25.10 ATHSCL HEART DISEASE OF ELEM CORONARY 03/09/2018 RAYNA FARAH MD, Ot I48.91 [...] ABNORMALITIES 03/09/2018 RAYNA FARAH MD, Ot Z79.01 SNF (CURRENT) USE OF ANTICOAGULANT 03/09/2018 RAYNA FARAH MD, Ot Z79.89 9 OTHER SNF (CURRENT) DRUG THERAPY 03/09/2018 RAYNA FARAH MD, [...] CCDS Ot I25.10 ATHSCL HEART DISEASE OF ELEM CORONARY 06/26/2018 VERONICA LAU FACC, ALI FACP CCDS Ot I48.0 PAROXYSMAL ATRIAL FIBRILLATION 06/28/2018 VERONICA LAU FACC, ALI FACP CCDS Ot I11.9 HYPERTENSIVE HEART DISEASE WITHOUT HEART 06/28/2018 VERONICA LAU FACC, ALI FACP CCDS Ot I25.10 ATHSCL HEART DISEASE OF ELEM CORONARY 06/28/2018 VERONICA LAU FACKaren, ALI FACP [...] MD Ot I25.10 ATHSCL HEART DISEASE OF ELEM CORONARY 06/29/2018 JOVANA HULL MD Ot I48.91 UNSPECIFIED ATRIAL FIBRILLATION 06/29/2018 JOVANA HULL MD, Ot J44 .9 CHRONIC OBSTRUCTIVE PULMONARY DISEASE, U 06/29/2018 JOVANA HULL MD Ot 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 06/29/2018 JOVANA HULL MD Ot 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) USE OF ANTICOAGULANT 06/29/2018 JOVANA HULL MD Ot Z79.82 AUT[employer] MECHANICS INSTRUCTOR (CURRENT) USE OF ASPIRIN 06/29/2018 JOVANA HULL MD Ot Z79.899 OTHER AUTO MECHANICS INSTRUCTOR (CURRENT) DRUG THERAPY 07/03/2018 JOVANA HULL MD Ot J38 .7 OTHER DISEASES OF LARYNX 07/03/2018 JOVANA HULL MD Ot Z01.810 ENCOUNTER FOR PREPROCEDURAL CARDIOVASCUL 07/03/2018 JOVANA HULL MD Ot Z01.811 ENCOUNTER FOR PREPROCEDURAL RESPIRATORY 07/03/2018 JOVANA HULL MD Ot Z11 .2 ENCOUNTER FOR SCREENING FOR OTHER BACTER 07/04/2018 JOVANA HULL MD Ot C32 .1 MALIGNANT NEOPLASM OF SUPRAGLOTTIS 07/04/2018 JOVANA HULL MD Ot F17.210 NICOTINE DEPENDENCE, CIGARETTES, UNCOMPL 07/04/2018 JOVANA HULL MD Ot I10 ESSENTIAL (PRIMARY) HYPERTENSION 07/04/2018 JOVANA HULL MD Ot I25.10 ATHSCL HEART DISEASE OF ELEM CORONARY 07/04/2018 JOVANA HULL MD Ot I48.91 UNSPECIFIED ATRIAL FIBRILLATION 07/04/2018 JOVANA HULL MD, Ot J44 .9 CHRONIC OBSTRUCTIVE PULMONARY DISEASE, U 07/04/2018 JOVANA HULL MD Ot 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 07/04/2018 JOVANA HULL MD Ot 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) USE OF ANTICOAGULANT 07/04/2018 JOVANA HULL MD Ot Z79.82 AUTO MECHANICS INSTRUCTOR (CURRENT) USE OF ASPIRIN 07/04/2018 JOVANA HULL MD Ot Z79.899 OTHER SNF (CURRENT) DRUG THERAPY 07/06/2018 JOVANA HULL MD Ot C32 .1 MALIGNANT NEOPLASM OF SUPRAGLOTTIS 07/06/2018 JOVANA HULL MD Ot F17.210 NICOTINE DEPENDENCE, CIGARETTES, UNCOMPL 07/06/2018 JOVANA HULL MD Ot I10 ESSENTIAL (PRIMARY) HYPERTENSION 07/06/2018 JOVANA HULL MD Ot I25.10 ATHSCL HEART DISEASE OF ELEM CORONARY 07/06/2018 JOVANA HULL MD Ot I48.91 UNSPECIFIED ATRIAL FIBRILLATION 07/06/2018 JOVANA HULL MD Ot J44 .9 CHRONIC OBSTRUCTIVE PULMONARY DISEASE, U 07/06/2018 JOVANA HULL MD Ot 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 07/06/2018 JOVANA HULL MD, Ot Z79.01 SNF (CURRENT) USE OF ANTICOAGULANT 07/06/2018 JOVANA HULL MD, Ot Z79.82 SNF (CURRENT) USE OF ASPIRIN 07/06/2018 JOVANA HULL MD, Ot Z79.899 OTHER SNF (CURRENT) DRUG THERAPY 07/26/2018 VERONICA LAU FAC, ALI FACP CCDS Ot I11.9 HYPERTENSIVE HEART DISEASE WITHOUT HEART 07/26/2018 VERONICA LAU FACC, ALI FACP CCDS Ot I25.10 ATHSCL HEART DISEASE OF ELEM CORONARY 07/26/2018 VERONICA LAU FACC, ALI FACP [...] OSTEOPOROSIS W/O CURRENT PAT 08/08/2018 VERONICA LAU [facility], ALI FACP CCDS Ot I11.9 HYPERTENSIVE HEART DISEASE WITHOUT HEART 08/08/2018 VERONICA LAU FACC, ALI FACP CCDS Ot I25.10 ATHSCL HEART DISEASE OF ELEM CORONARY 08/08/2018 VERONICA LAU FAC, ALI FACP [...] Burnett Ot 305.1 TOBACCO USE DISORDER 05/11/2019 RICHELLE LAU, SHAYY Burnett Ot 783.21 LOSS [...] Ot J18 .9 PNEUMONIA, UNSPECIFIED ORGANISM 05/11/2019 VALENZUEAL DO, MERRITT L Ot D35.00 BENIGN NEOPLASM [...] DIASTOLIC (CONGESTIVE) HEART FAROOQ 05/11/2019 VERONICA LAU [facility], ALI FACP CCDS Ot J43.8 OTHER EMPHYSEMA 05/11/2019 VERONICA LAU [facility], ALI FACP CCDS Ot Z72.0 TOBACCO USE [...] LOCALIZED ENLARGED LYMPH NODES 05/11/2019 VERONICA LAU [facility], ALI FACP CCDS Ot I11.9 HYPERTENSIVE HEART DISEASE WITHOUT HEART 05/11/2019 VERONICA LAU [facility], ALI FACP CCDS Ot I25.10 ATHSCL HEART DISEASE OF ELEM CORONARY 05/11/2019 VERONICA LAU [facility], ALI ANGELA CCDS Ot I48.0 PAROXYSMAL ATRIAL [...] CCDS Ot I25.10 ATHSCL HEART DISEASE OF ELEM CORONARY 07/10/2019 VERONICA LAU FACC, ALI FACP [...] LAU FACC, TERRY FACP CCDS Ot 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) USE OF ANTICOAGULANT 07/10/2019 VERONICA LAU FACC, TERRY FACP CCDS Ot Z79.82 SNF (CURRENT) USE OF ASPIRIN 07/10/2019 VERONICA LAU FACC, TERRY FACP CCDS Ot Z79.899 OTHER AUTO MECHANICS INSTRUCTOR (CURRENT) DRUG THERAPY 07/10/2019 VERONICA LAU FACC, [...] CCDS Ot I25.10 ATHSCL HEART DISEASE OF ELEM CORONARY 07/13/2019 VERONICA LUA FACC, ALI FACP CCDS Ot I48.0 PAROXYSMAL [...] LAU FACC, ALI FACP CCDS Ot 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) USE OF ANTICOAGULANT 07/13/2019 VERONICA LAU FACC, TERRY FACP CCDS Ot Z79.82 SNF (CURRENT) USE OF ASPIRIN 07/13/2019 VERONICA LAU FACC, ALI FACP CCDS Ot Z79.899 OTHER SNF (CURRENT) DRUG THERAPY 07/13/2019 VERONICA LAU FACC, [...] CCDS Ot I25.10 ATHSCL HEART DISEASE OF ELEM CORONARY 07/17/2019 VERONICA LAU FACC, ALI FACP [...] LAU FACC, ALI FACP CCDS Ot 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) USE OF ANTICOAGULANT 07/17/2019 VERONICA LAU FACC, ALI FACP CCDS Ot Z79.82 SNF (CURRENT) USE OF ASPIRIN 07/17/2019 VERONICA LAU FACC, ALI FACP CCDS Ot Z79.899 OTHER AUTO MECHANICS INSTRUCTOR (CURRENT) DRUG THERAPY 07/17/2019 VERONICA LAU FACC, [...] MD, Ot I25.10 ATHSCL HEART DISEASE OF ELEM CORONARY 07/27/2019 RAYNA FARAH MD, Ot I48.91 [...] MD, Ot I25.10 ATHSCL HEART DISEASE OF ELEM CORONARY 08/08/2019 RAYNA FARAH MD, Ot I48.91 UNSPECIFIED ATRIAL FIBRILLATION 08/08/2019 RYANA FARAH MD, Ot I50.9 HEART FAILURE, UNSPECIFIED [...] DIASTOLIC (CONGESTIVE) HEART FAROOQ 09/18/2019 VERONICA LAU [facility], ALI FACP CCDS Ot J43.8 OTHER EMPHYSEMA 09/18/2019 VERONICA LAU [facility], ALI FACP CCDS Ot Z72.0 TOBACCO USE [...] LOCALIZED ENLARGED LYMPH NODES 09/18/2019 VERONICA LAU [facility], ALI FAC CCDS Ot I11.9 HYPERTENSIVE HEART DISEASE WITHOUT HEART 09/18/2019 VERONICA LAU [facility], ALI FACP CCDS Ot I25.10 ATHSCL HEART DISEASE OF ELEM CORONARY 09/18/2019 VERONICA LAU [facility], ALI [facility] CCDS Ot I48.0 PAROXYSMAL ATRIAL FIBRILLATION 09/18/2019 [...] RAYNA Ot V72.84 EXAM PRE-OPERATIVE NOS 09/18/2019 SHAYY PEOPLES MD Ot 789.30 ABDOMINAL/PELVIC [...] ABNORMAL FINDING OF SUSAN 09/18/2019 VERONICA LAU [facility], ALI FACP CCDS Ot D35.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 09/18/2019 VERONICA LAU [facility], ALI FACP CCDS Ot E87.1 HYPO-OSMOLALITY AND HYPONATREMIA 09/18/2019 VERONICA LAU [facility], ALI FACP CCDS Ot I10 ESSENTIAL (PRIMARY) HYPERTENSION 09/18/2019 VERONICA LAU [facility], ALI FACP CCDS Ot I48.0 PAROXYSMAL ATRIAL FIBRILLATION 09/18/2019 VERONICA LAU [facility], ALI FACP CCDS Ot I50.32 CHRONIC DIASTOLIC (CONGESTIVE) HEART FAROOQ 09/18/2019 VERONICA LAU [facility], ALI FACP CCDS Ot J43.8 OTHER EMPHYSEMA 09/18/2019 VERONICA LAU [facility], ALI FACP CCDS Ot Z72.0 TOBACCO USE [...] CCDS Ot I25.10 ATHSCL HEART DISEASE OF ELEM CORONARY 09/18/2019 VERONICA LAU FAC, ALI FACP [...] ABNORMAL FINDING OF SUSAN 09/19/2019 VERONICA LAU [facility], ALI FACP CCDS Ot D35.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 09/19/2019 VERONICA LAU [facility], ALI FACP CCDS Ot E87.1 HYPO-OSMOLALITY AND HYPONATREMIA 09/19/2019 VERONICA LAU [facility], ALI FACP CCDS Ot I10 ESSENTIAL (PRIMARY) HYPERTENSION 09/19/2019 VERONICA LAU [facility], ALI FACP CCDS Ot I48.0 PAROXYSMAL ATRIAL FIBRILLATION 09/19/2019 VERONICA LAU [facility], ALI FACP CCDS Ot I50.32 CHRONIC DIASTOLIC (CONGESTIVE) HEART FAROOQ 09/19/2019 VERONICA LAU [facility], ALI FACP CCDS Ot J43.8 OTHER EMPHYSEMA 09/19/2019 VERONICA LAU [facility], ALI FACP CCDS Ot Z72.0 TOBACCO USE 09/19/2019 NIVIA LAU, DIALLO S Ot J44.9 CHRONIC OBSTRUCTIVE PULMONARY DISEASE, U 09/19/2019 ADIAN LOZANO MD R Ot R06.0 2 SHORTNESS [...] LOCALIZED ENLARGED LYMPH NODES 09/19/2019 VERONICA LAU [facility], ALI [facility] CCDS Ot I11.9 HYPERTENSIVE HEART DISEASE WITHOUT HEART 09/19/2019 VERONICA LAU [facility], ALI [facility] CCDS Ot 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 69 OTH MED,LT,CURRENT USE 10/12/2019 OBINNA PRASAD MD Ot 921 .0 BLACK EYE NOS 10/12/2019 OBINNA PRASAD MD Ot 959.01 HEAD INJURY, NOS 10/12/2019 OBINNA PRASAD MD Ot E000.8 OTHER EXTERNAL CAUSE STATUS 10/12/2019 OBINNA PRASAD MD Ot E849.0 ACCIDENT IN HOME 10/12/2019 OBINNA PRASAD MD Ot E917.3 FURNIT W/O SUB FALL 10/12/2019 LELE HUGHES MD Ot 724. 02 SPINAL [...] COOKING AND BAKING 10/12/2019 WILLIAN, ECTOR R SMALL [employer]ATE ASSEMBLER Ot T21.25XA BURN OF SECOND DEGREE OF [...] CCDS Ot I25.10 ATHSCL HEART DISEASE OF [place] CORONARY 10/12/2019 VERONICA LAU FAC, ALI FACP [...] HEART DISEASE WITHOUT HEART 10/25/2019 VERONICA LAU [facility], ALI FACP CCDS Ot I25.10 ATHSCL HEART DISEASE OF [place] CORONARY 10/25/2019 VERONICA LAU FAC, ALI FACP [...] 458.9 HYPO TENSION NOS 10/25/2019 RICHELLE LAU, SAHYY Burnett Ot 253.6 NEUROHYPOPHYSIS DIS NEC 10/25/2019 [...] I10 ESSENTIAL (PRIMARY) HYPERTENSION 10/25/2019 VERONICA LAU [facility], ALI FACP CCDS Ot I48.0 PAROXYSMAL ATRIAL [...] LOCALIZED ENLARGED LYMPH NODES 10/25/2019 VERONICA LAU [facility], ALI [facility] CCDS Ot I11.9 HYPERTENSIVE HEART DISEASE WITHOUT HEART 10/25/2019 VERONICA LAU [facility], ALI [facility] CCDS Ot I25.10 ATHSCL HEART DISEASE OF [place] CORONARY 10/25/2019 VERONICA LAU [facility], [facility] CCDS Ot I48.0 PAROXYSMAL ATRIAL FIBRILLATION 10/25/2019 [...] LOCALIZED ENLARGED LYMPH NODES 10/25/2019 VERONICA LAU [facility], [facility] CCDS Ot I11.9 HYPERTENSIVE HEART DISEASE WITHOUT HEART 10/25/2019 VERONICA LAU [facility], [facility] CCDS Ot I25.10 ATHSCL HEART DISEASE OF [place] CORONARY 10/25/2019 VERONICA LAU [facility], ALI [facility] CCDS Ot I48.0 PAROXYSMAL ATRIAL FIBRILLATION 10/25/2019 [...] ABNORMAL FINDING OF SUSAN 10/25/2019 VERONICA LAU [facility], ALI FACP CCDS Ot D35.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 10/25/2019 VERONICA LAU [facility], ALI FACP CCDS Ot E87.1 HYPO-OSMOLALITY AND HYPONATREMIA 10/25/2019 VERONICA LAU [facility], ALI FACP CCDS Ot I10 ESSENTIAL (PRIMARY) HYPERTENSION 10/25/2019 VERONICA LAU [facility], ALI FACP CCDS Ot I48.0 PAROXYSMAL ATRIAL FIBRILLATION 10/25/2019 VERONICA LAU [facility], ALI FACP CCDS Ot I50.32 CHRONIC DIASTOLIC (CONGESTIVE) HEART FAROOQ 10/25/2019 VERONICA LAU [facility], ALI FACP CCDS Ot J43.8 OTHER EMPHYSEMA 10/25/2019 VERONICA LAU [facility], ALI FACP CCDS Ot Z72.0 TOBACCO USE [...] CCDS Ot I25.10 ATHSCL HEART DISEASE OF [place] CORONARY 10/25/2019 VERONICA LAU [facility], ALI FACP CCDS Ot I48.0 PAROXYSMAL ATRIAL [...] JARED Ot I25.10 ATHSCL HEART DISEASE OF [place] CORONARY 10/25/2019 HERNANDEZ DO, JARED Ot I48.91 UNSPECIFIED ATRIAL FIBRILLATION 10/25/2019 HERNANDEZ DO, JARED Ot J43.9 EMPHYSEMA, UNSPECIFIED 10/25/2019 HERNANDEZ DO, JARED Ot K21.9 GASTRO-ESOPHAGEAL REFLUX DISEASE WITHOUT 10/25/2019 HERNANDEZ DO, JARED Ot K59.09 OTHER CONSTIPATION 10/25/2019 HERNANDEZ DO, JARED Ot M19.90 UNSPECIFIED OSTEOARTHRITIS, UNSPECIFIED 10/25/2019 HERNANDEZ DO, JARED Ot R60.0 LOCALIZED EDEMA 10/25/2019 HERNANDEZ DO, JARED Ot 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) USE OF ANTICOAGULANT 10/25/2019 MARY BAER, JARED Ot 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 10/25/2019 MARY BAER, JARED Ot Z79.82 AUTO MECHANICS INSTRUCTOR (CURRENT) USE OF ASPIRIN 10/25/2019 MARY BAER, JARED Ot Z79.89 1 [employer]O MECH[employer]ICS INSTRUCTOR (CURRENT) USE OF OPIATE ANALGE 10/25/2019 MARY BAER, JARED Ot Z79.89 9 OTHER SNF (CURRENT) DRUG THERAPY 10/25/2019 MARY BAER, JARED [...] JARED Ot F41.9 ANXIETY DISORDER, UNSPECIFIED 10/25/2019 MARY BAER, JARED Ot G89.29 OTHER CHRONIC PAIN 10/25/2019 MARY BAER, JARED Ot I10 ESSENTIAL (PRIMARY) HYPERTENSION 10/25/2019 MARY BAER JARED Ot I25.10 ATHSCL HEART DISEASE OF [place] CORONARY 10/25/2019 MARY BAER, JARED Ot I48.91 UNSPECIFIED ATRIAL FIBRILLATION 10/25/2019 MARY BAER, JARED Ot J43.9 EMPHYSEMA, UNSPECIFIED 10/25/2019 MARY BAER, JARED Ot K21.9 GASTRO-ESOPHAGEAL REFLUX DISEASE WITHOUT 10/25/2019 MARY BAER, JARED Ot K59.09 OTHER CONSTIPATION 10/25/2019 MARY BAER, JARED Ot M19.90 UNSPECIFIED OSTEOARTHRITIS, UNSPECIFIED 10/25/2019 MARY BAER, JARED Ot R60.0 LOCALIZED EDEMA 10/25/2019 MARY BAER JARED Ot 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) USE OF ANTICOAGULANT 10/25/2019 MARY BAER JARED Ot Z79.52 SNF (CURRENT) USE OF SYSTEMIC STER 10/25/2019 MARY BAER JARED Ot Z79.82 AUTO MECHANICS INSTRUCTOR (CURRENT) USE OF ASPIRIN 10/25/2019 MARY BAER JARED Ot Z79.89 1 AUTO MECHANICS INSTRUCTOR (CURRENT) USE OF OPIATE ANALGE 10/25/2019 MARY BAER JARED Ot Z79.89 9 OTHER SNF (CURRENT) DRUG THERAPY 10/25/2019 MARY BAER JARED [...] DEGREE OF BUTTOCK, INITIA 11/05/2019 ECTOR DORSEY SMALL BATTERY PLATE ASSEMBLER Ot T24.212A BURN OF SECOND DEGREE OF [...] CCDS Ot I25.10 ATHSCL HEART DISEASE OF [place] CORONARY 11/05/2019 VERONICA LAU FAC, ALI FACP [...] FURNIT W/O SUB FALL 11/07/2019 SAUL LAU, LELE Mera Ot 724. 02 [...] HEART DISEASE WITHOUT HEART 11/07/2019 VERONICA LAU [facility], [facility] CCDS Ot I25.10 ATHSCL HEART DISEASE OF [place] CORONARY 11/07/2019 VERONICA LAU [facility], [facility] CCDS Ot I48.0 PAROXYSMAL ATRIAL FIBRILLATION 11/07/2019 [...] SPINAL STENOSIS, LUMBAR REG, W/OUT NEURO 11/15/2019 LELE HUGHES MD Ot 733. 13 PATHOLOGIC [...] BENIGN NEOPLASM OF LEFT ADRENAL GLAND 11/15/2019 VERONICA LAU FACC, ALI FACP CCDS [...] LOCALIZED ENLARGED LYMPH NODES 11/15/2019 VERONICA LAU [facility], [facility] CCDS Ot I11.9 HYPERTENSIVE HEART DISEASE WITHOUT HEART 11/15/2019 VERONICA LAU [facility], [facility] CCDS Ot I25.10 ATHSCL HEART DISEASE OF [place] CORONARY 11/15/2019 VERONICA LAU [facility], [facility] CCDS Ot I48.0 PAROXYSMAL ATRIAL FIBRILLATION 11/15/2019 [...] LOCALIZED ENLARGED LYMPH NODES 12/04/2019 VERONICA LAU [facility], [facility] CCDS Ot I11.9 HYPERTENSIVE HEART DISEASE WITHOUT HEART 12/04/2019 VERONICA LAU [facility], [facility] CCDS Ot I25.10 ATHSCL HEART DISEASE OF [place] CORONARY 12/04/2019 VERONICA LAU [facility], ALI [facility] CCDS Ot I48.0 PAROXYSMAL ATRIAL FIBRILLATION 12/04/2019 [...] LOCALIZED ENLARGED LYMPH NODES 12/05/2019 VERONICA LAU [facility], ALI FACP CCDS Ot I11.9 HYPERTENSIVE HEART DISEASE WITHOUT HEART 12/05/2019 VERONICA LAU [facility], ALI FACP CCDS Ot I25.10 ATHSCL HEART DISEASE OF [place] CORONARY 12/05/2019 VERONICA LAU [facility], [facility]I [facility] CCDS Ot I48.0 PAROXYSMAL ATRIAL FIBRILLATION 12/05/2019 [...] SPINAL STENOSIS, LUMBAR REG, W/OUT NEURO 12/05/2019 LEEL HUGHES MD Ot 733. 13 PATHOLOGIC [...] LOCALIZED ENLARGED LYMPH NODES 12/05/2019 VERONICA LAU [facility], [facility] CCDS Ot I11.9 HYPERTENSIVE HEART DISEASE WITHOUT HEART 12/05/2019 VERONICA LAU [facility], [facility] CCDS Ot I25.10 ATHSCL HEART DISEASE OF [place] CORONARY 12/05/2019 VERONICA LAU [facility], [facility] CCDS Ot I48.0 PAROXYSMAL ATRIAL FIBRILLATION 12/05/2019 [...] SPINAL STENOSIS, LUMBAR REG, W/OUT NEURO 12/12/2019 LELE HUGHES MD Ot 733. 13 PATHOLOGIC [...] OF LEFT ADRENAL GLAND 12/12/2019 VERONICA MD [facility], ALI FACP CCDS Ot E87.1 HYPO-OSMOLALITY AND HYPONATREMIA 12/12/2019 VERONICA LAU [facility], ALI FACP CCDS Ot I10 ESSENTIAL (PRIMARY) HYPERTENSION 12/12/2019 VERONICA MD [facility], ALI FACP CCDS Ot I48.0 PAROXYSMAL ATRIAL FIBRILLATION 12/12/2019 VERONICA MD [facility], ALI FACP CCDS Ot I50.32 CHRONIC DIASTOLIC (CONGESTIVE) HEART FAROOQ 12/12/2019 VERONICA LAU [facility], ALI FACP CCDS Ot J43.8 OTHER EMPHYSEMA 12/12/2019 VERONICA LAU [facility], ALI FACP CCDS Ot Z72.0 TOBACCO USE [...] DEGREE OF BUTTOCK, INITIA 12/12/2019 ECTOR DORSEY SMALL BATTERY PLATE ASSEMBLER Ot T24.212A BURN OF SECOND DEGREE OF LEFT THIGH, INI 12/12/2019 ECTOR DORSEY APRN Ot T65.292A TOXIC EFFECT OF TOBACCO AND NICOTINE, SE 12/12/2019 ECTOR DORSEY APRN Ot X12.XXXA CONTACT WITH OTHER HOT FLUIDS, INITIAL E 12/12/2019 ECTOR DORSEY SMALL BATTERY PLATE ASSEMBLER Ot Y93.G3 ACTIVITY, COOKING AND BAKING 12/12/2019 [...] CCDS Ot I25.10 ATHSCL HEART DISEASE OF [place] CORONARY 12/12/2019 VERONICA LAU FAC, ALI FACP [...] Ot J43.8 OTHER EMPHYSEMA 12/13/2019 VERONICA LAU [facility], ALI FACP CCDS Ot Z72.0 TOBACCO USE [...] LOCALIZED ENLARGED LYMPH NODES 12/13/2019 VERONICA LAU [facility], ALI FACP CCDS Ot I11.9 HYPERTENSIVE HEART DISEASE WITHOUT HEART 12/13/2019 VERONICA LAU [facility], ALI FACP CCDS Ot I25.10 ATHSCL HEART DISEASE OF [place] CORONARY 12/13/2019 VERONICA LAU [facility], ALI FACP CCDS Ot I48.0 PAROXYSMAL ATRIAL [...] CCDS Ot I25.10 ATHSCL HEART DISEASE OF [place] CORONARY 12/14/2019 VERONICA LAU FACC, TERRY MILLER [...] OF POSTERIOR WALL OF 12/14/2019 BLU BARRERA MD Ot C32.1 MALIGNANT NEOPLASM OF SUPRAGLOTTIS 12/14/2019 OBINNA PRASAD MD Ot R13.12 DYSPHAGIA, OROPHARYNGEAL PHASE 12/14/2019 GAGAN LAU, RAYNA Ot Z01.81 8 ENCOUNTER FOR OTHER PREPROCEDURAL EXAMIN 12/21/2019 Ot 458.9 HYPO TENSION NOS 12/21/2019 RICHELLE LAU, SHAYY Burnett Ot 789.30 ABDOMINAL/PELVIC SWELLING,MASS/LUMP UNSP 12/21/2019 SHAYY PEOPLES MD Ot 255.9 ADRENAL DISORDER N0S 12/21/2019 SHAYY PEOPLES MD Ot 789.30 ABDOMINAL/PELVIC SWELLING,MASS/LUMP UNSP 12/21/2019 LELE HUGHES MD Ot 338. 4 CHRONIC PAIN SYNDROME 12/21/2019 LELE HUGHES MD Ot 721. 3 LUMBOSACRAL SPONDYLOSIS 12/21/2019 LELE HUGHES MD Ot 722. 52 LUMB/LUMBOSAC DISC DEGEN 12/21/2019 LELE HUGHES MD Ot 729. 1 MYALGIA AND MYOSITIS NOS 12/21/2019 LELE HUGHES MD Ot V58. 69 OT MED,LT,CURRENT USE 12/21/2019 OBINNA PRASAD MD Ot 921 .0 BLACK EYE NOS 12/21/2019 OBINNA PRASAD MD Ot 959.01 HEAD INJURY, NOS 12/21/2019 OBINNA PRASAD MD Ot E000.8 OTHER EXTERNAL CAUSE STATUS 12/21/2019 OBINNA PRASAD MD Ot E849.0 ACCIDENT IN HOME 12/21/2019 OBINNA PRASAD MD Ot E917.3 FURNIT W/O SUB FALL 12/21/2019 SAUL LAU, LELE Mera Ot 724. 02 SPINAL STENOSIS, LUMBAR REG, W/OUT NEURO 12/21/2019 LELE HUGHES MD Ot 733. 13 PATHOLOGIC FRACTURE, VERTEBRAE 12/21/2019 OBINNA PRASAD MD Ot 255 .9 ADRENAL DISORDER N0S 12/21/2019 OBINNA PRASAD MD Ot 244 .9 HYPOTHYROIDISM NOS 12/21/2019 OBINNA PRASAD MD Ot 401 .9 HYPERTENSION NOS 12/21/2019 JOVANA HULL MD P Ot 388.70 OTALGIA NOS 12/21/2019 JOVANA HULL MD P Ot 462 ACUTE PHARYNGITIS 12/21/2019 JOVANA HULL MD P Ot 478 .5 VOCAL CORD DISEASE NEC 12/21/2019 OBINNA PRASAD MD Ot J18 .9 PNEUMONIA, UNSPECIFIED ORGANISM 12/21/2019 BIANCA DO, MERRITT L Ot D35.00 BENIGN NEOPLASM OF UNSPECIFIED ADRENAL G 12/21/2019 OBINNA PRASAD MD Ot R91 .8 OTHER NONSPECIFIC ABNORMAL FINDING OF SUSAN 12/21/2019 VERONICA LAU FAC, ALI FACP CCDS Ot D35.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 12/21/2019 VERONICA LAU FACC, ALI FACP CCDS Ot E87.1 HYPO-OSMOLALITY AND HYPONATREMIA 12/21/2019 VERONICA LAU FACC, ALI FACP CCDS Ot I10 ESSENTIAL (PRIMARY) HYPERTENSION 12/21/2019 VERONICA LAU FACC, ALI FACP CCDS Ot I48.0 PAROXYSMAL ATRIAL FIBRILLATION 12/21/2019 VERONICA LAU FACC, ALI FACP CCDS Ot I50.32 CHRONIC DIASTOLIC (CONGESTIVE) HEART FAROOQ 12/21/2019 VERONICA LAU FACC, ALI FACP CCDS Ot J43.8 OTHER EMPHYSEMA 12/21/2019 VERONICA MARIEC, ALI FACP CCDS Ot Z72.0 TOBACCO USE 12/21/2019 NIVIA LAU, DIALLO S Ot J44.9 CHRONIC OBSTRUCTIVE PULMONARY DISEASE, U 12/21/2019 BLAKE LAU, ADINA Mullins Ot R06.0 2 SHORTNESS OF BREATH 12/21/2019 NIVIA LAU, DIALLO S Ot J44.9 CHRONIC OBSTRUCTIVE PULMONARY DISEASE, U 12/21/2019 RNONY BENEDICT MD Ot T21.25XA BURN OF SECOND DEGREE OF BUTTOCK, INITIA 12/21/2019 RONNY BENEDICT MD Ot T24.212A BURN OF SECOND DEGREE OF LEFT THIGH, INI 12/21/2019 RONNY BENEDICT MD Ot T65.292A TOXIC EFFECT OF TOBACCO AND NICOTINE, SE 12/21/2019 RONNY BENEDICT MD Ot X12.XXXA CONTACT WITH OTHER HOT FLUIDS, INITIAL E 12/21/2019 RONNY BENEDICT MD Ot Y93.G 3 ACTIVITY, COOKING AND BAKING 12/21/2019 ECTOR DORSEY APRN Ot T21.25XA BURN OF SECOND DEGREE OF BUTTOCK, INITIA 12/21/2019 ECTOR DORSEY APRN Ot T24.212A BURN OF SECOND DEGREE OF LEFT THIGH, INI 12/21/2019 ECTOR DORSEY APRN Ot T65.292A TOXIC EFFECT OF TOBACCO AND NICOTINE, SE 12/21/2019 ECTOR DORSEY APRN Ot X12.XXXA CONTACT WITH OTHER HOT FLUIDS, INITIAL E 12/21/2019 ECTOR DORSEY APRN Ot Y93.G3 ACTIVITY, COOKING AND BAKING 12/21/2019 OBINNA PRASAD MD Ot M81 .0 AGE-RELATED OSTEOPOROSIS W/O CURRENT PAT 12/21/2019 OBINNA PRASAD MD Ot Z12.31 ENCNTR SCREEN MAMMOGRAM FOR MALIGNANT NE 12/21/2019 OBINNA PRASAD MD Ot Z12.31 ENCNTR SCREEN MAMMOGRAM FOR MALIGNANT NE 12/21/2019 MERRITT VALENZUELA DO Ot E27.8 OTHER SPECIFIED DISORDERS OF ADRENAL GLA 12/21/2019 MERRITT VALENZUELA DO Ot E55.9 VITAMIN D DEFICIENCY, UNSPECIFIED 12/21/2019 MERRITT VALENZUELA DO Ot E87.1 HYPO-OSMOLALITY AND HYPONATREMIA 12/21/2019 JOVANA HULL MD Ot I65.22 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 12/21/2019 JOVANA HULL MD Ot J38 .7 OTHER DISEASES OF LARYNX 12/21/2019 JOVANA HULL MD Ot R59 .0 LOCALIZED ENLARGED LYMPH NODES 12/21/2019 VERONICA LAU [facility], [facility] CCDS Ot I11.9 HYPERTENSIVE HEART DISEASE WITHOUT HEART 12/21/2019 VERONICA LAU [facility] CCD[facility] Ot I25.10 ATHSCL HEART DISEASE OF [place] CORONARY 12/21/2019 VERONICA LAU [facility], [facility] CCDS Ot I48.0 PAROXYSMAL ATRIAL FIBRILLATION 12/21/2019 JOVANA HULL MD Ot C32 .1 MALIGNANT NEOPLASM OF SUPRAGLOTTIS 12/21/2019 JOVANA HULL MD Ot R94 .8 ABNORMAL RESULTS OF FUNCTION STUDIES OF 12/21/2019 REZA LAU, JENNIFER Rucker Ot C32.1 MALIGNANT NEOPLASM OF SUPRAGLOTTIS 12/21/2019 OBINNA PRASAD MD Ot I65.23 OCCLUSION AND STENOSIS OF BILATERAL FREEMAN 12/21/2019 OBINNA PRASAD MD Ot R13.13 DYSPHAGIA, PHARYNGEAL PHASE 12/21/2019 OBINNA PRASAD MD Ot R22 .1 LOCALIZED SWELLING, MASS AND LUMP, NECK 12/21/2019 JOVANA HULL MD Ot C32 .9 MALIGNANT NEOPLASM OF LARYNX, UNSPECIFIE 12/21/2019 JOVANA HULL MD Ot J31 .2 CHRONIC PHARYNGITIS 12/21/2019 JOVANA HULL MD Ot Z92 .3 PERSONAL HISTORY OF IRRADIATION 12/21/2019 BLU BARRERA MD Ot 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 4 CHRONIC PAIN SYNDROME 12/21/2019 LELE HUGHES MD Ot 721. 3 LUMBOSACRAL SPONDYLOSIS 12/21/2019 LELE HUGHES MD Ot 722. 52 LUMB/LUMBOSAC DISC DEGEN 12/21/2019 LELE HUGHES MD Ot 729. 1 MYALGIA AND MYOSITIS NOS 12/21/2019 LELE HUGHES MD Ot V58. 69 OTH MED,LT,CURRENT USE 12/21/2019 OBINNA PRASAD MD Ot 921 .0 BLACK EYE NOS 12/21/2019 OBINNA PRASAD MD Ot 959.01 HEAD INJURY, NOS 12/21/2019 OBINNA PRASAD MD Ot E000.8 OTHER EXTERNAL CAUSE STATUS 12/21/2019 OBINAN PRASAD MD Ot E849.0 ACCIDENT IN HOME 12/21/2019 OBINNA PRASAD MD Ot E917.3 FURNIT W/O SUB FALL 12/21/2019 LELE HUGHES MD Ot 724. 02 SPINAL STENOSIS, LUMBAR REG, W/OUT NEURO 12/21/2019 LELE HUGHES MD Ot 733. 13 PATHOLOGIC FRACTURE, VERTEBRAE 12/21/2019 OBINNA PRASAD MD Ot 255 .9 ADRENAL DISORDER N0S 12/21/2019 OBINNA PRASAD MD Ot 244 .9 HYPOTHYROIDISM NOS 12/21/2019 OBINNA PRASAD MD Ot 401 .9 HYPERTENSION NOS 12/21/2019 JOVANA HULL MD Ot 388.70 OTALGIA NOS 12/21/2019 JOVANA HULL MD Ot 462 ACUTE PHARYNGITIS 12/21/2019 JOVANA HULL MD Ot 478 .5 VOCAL CORD DISEASE NEC 12/21/2019 OBINNA PRASAD MD Ot J18 .9 PNEUMONIA, UNSPECIFIED ORGANISM 12/21/2019 MERRITT VALENZUELA DO Ot D35.00 BENIGN NEOPLASM OF UNSPECIFIED ADRENAL G 12/21/2019 OBINNA PRASAD MD Ot R91 .8 OTHER NONSPECIFIC ABNORMAL FINDING OF SUSAN 12/21/2019 VERONICA LAU FAC, ALI FACP CCDS Ot D35.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 12/21/2019 VERONICA LAU FACKaren, ALI FACP CCDS Ot E87.1 HYPO-OSMOLALITY AND HYPONATREMIA 12/21/2019 VERONICA LAU FACKaren, ALI FACP CCDS Ot I10 ESSENTIAL (PRIMARY) HYPERTENSION 12/21/2019 VERONICA LAU FAC, ALI FACP CCDS Ot I48.0 PAROXYSMAL ATRIAL FIBRILLATION 12/21/2019 VERONICA LAU FAC, ALI FACP CCDS Ot I50.32 CHRONIC DIASTOLIC (CONGESTIVE) HEART FAROOQ 12/21/2019 VERONICA LAU FAC, ALI FACP CCDS Ot J43.8 OTHER EMPHYSEMA 12/21/2019 VERONICA LAU FAC, ALI FACP CCDS Ot Z72.0 TOBACCO USE 12/21/2019 NIVIA LAU, DIALLO S Ot J44.9 CHRONIC OBSTRUCTIVE PULMONARY DISEASE, U 12/21/2019 ADINA LOZANO MD Ot R06.0 2 SHORTNESS OF BREATH 12/21/2019 NIVIA LAU, DIALLO S Ot J44.9 CHRONIC OBSTRUCTIVE PULMONARY DISEASE, U 12/21/2019 RONNY EBNEDICT MD Ot T21.25XA BURN OF SECOND DEGREE OF BUTTOCK, INITIA 12/21/2019 RONNY BENEDICT MD, Ot T24.212A BURN OF SECOND DEGREE OF LEFT THIGH, INI 12/21/2019 RONNY BENEDICT MD Ot T65.292A TOXIC EFFECT OF TOBACCO AND NICOTINE, SE 12/21/2019 RONNY BENEDICT MD Ot X12.XXXA CONTACT WITH OTHER HOT FLUIDS, INITIAL E 12/21/2019 RONNY BENEDICT MD Ot Y93.G 3 ACTIVITY, COOKING AND BAKING 12/21/2019 ECTOR DORSEY APRN Ot T21.25XA BURN OF SECOND DEGREE OF BUTTOCK, INITIA 12/21/2019 ECTOR DORSEY APRN Ot T24.212A BURN OF SECOND DEGREE OF LEFT THIGH, INI 12/21/2019 ECTOR DORSEY APRN Ot T65.292A TOXIC EFFECT OF TOBACCO AND NICOTINE, SE 12/21/2019 ECTOR DORSEY APRN Ot X12.XXXA CONTACT WITH OTHER HOT FLUIDS, INITIAL E 12/21/2019 ECTOR DORSEY APRN Ot Y93.G3 ACTIVITY, COOKING AND BAKING 12/21/2019 OBINNA PRASAD MD Ot M81 .0 AGE-RELATED OSTEOPOROSIS W/O CURRENT PAT 12/21/2019 OBINNA PRASAD MD Ot Z12.31 ENCNTR SCREEN MAMMOGRAM FOR MALIGNANT NE 12/21/2019 OBINNA PRASAD MD, Ot Z12.31 ENCNTR SCREEN MAMMOGRAM FOR MALIGNANT NE 12/21/2019 MERRITT VALENZUELA DO Ot E27.8 OTHER SPECIFIED DISORDERS OF ADRENAL GLA 12/21/2019 MERRITT VALENZUELA DO Ot E55.9 VITAMIN D DEFICIENCY, UNSPECIFIED 12/21/2019 MERRITT VALENZUELA DO Ot E87.1 HYPO-OSMOLALITY AND HYPONATREMIA 12/21/2019 JOVANA HULL MD Ot I65.22 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 12/21/2019 JOVANA HULL MD Ot J38 .7 OTHER DISEASES OF LARYNX 12/21/2019 JOVANA HULL MD Ot R59 .0 LOCALIZED ENLARGED LYMPH NODES 12/21/2019 VERONICA LAU [facility], ALI FACP CCDS Ot I11.9 HYPERTENSIVE HEART DISEASE WITHOUT HEART 12/21/2019 VERONICA LAU [facility], [facility]I [facility] CCDS Ot I25.10 ATHSCL HEART DISEASE OF [place] CORONARY 12/21/2019 VERONICA LAU [facility], [facility] CCDS Ot I48.0 PAROXYSMAL ATRIAL FIBRILLATION 12/21/2019 OJVANA HULL MD Ot C32 .1 MALIGNANT NEOPLASM OF SUPRAGLOTTIS 12/21/2019 JOVANA HULL MD Ot R94 .8 ABNORMAL RESULTS OF FUNCTION STUDIES OF 12/21/2019 JENNIFER COBB MD Ot C32.1 MALIGNANT NEOPLASM OF SUPRAGLOTTIS 12/21/2019 OBINNA PRASAD MD Ot I65.23 OCCLUSION AND STENOSIS OF BILATERAL FREEMAN 12/21/2019 OBINNA PRASAD MD Ot R13.13 DYSPHAGIA, PHARYNGEAL PHASE 12/21/2019 OBINNA PRASAD MD Ot R22 .1 LOCALIZED SWELLING, MASS AND LUMP, NECK 12/21/2019 JOVANA HULL MD Ot C32 .9 MALIGNANT NEOPLASM OF LARYNX, UNSPECIFIE 12/21/2019 JOVANA HULL MD Ot J31 .2 CHRONIC PHARYNGITIS 12/21/2019 JOVANA HULL MD Ot Z92 .3 PERSONAL HISTORY OF IRRADIATION 12/21/2019 BLU BARRERA MD Ot 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 4 CHRONIC PAIN SYNDROME 12/21/2019 LELE HUGHES MD Ot 721. 3 LUMBOSACRAL SPONDYLOSIS 12/21/2019 LELE HUGHES MD Ot 722. 52 LUMB/LUMBOSAC DISC DEGEN 12/21/2019 LELE HUGHES MD Ot 729. 1 MYALGIA AND MYOSITIS NOS 12/21/2019 LELE HUGHES MD Ot V58. 69 OTH MED,LT,CURRENT USE 12/21/2019 OBINNA PRASAD MD Ot 921 .0 BLACK EYE NOS 12/21/2019 OBINNA PRASAD MD Ot 959.01 HEAD INJURY, NOS 12/21/2019 OBINNA PRASAD MD Ot E000.8 OTHER EXTERNAL CAUSE STATUS 12/21/2019 OBINNA PRASAD MD Ot E849.0 ACCIDENT IN HOME 12/21/2019 OBINNA PRASAD MD Ot E917.3 FURNIT W/O SUB FALL 12/21/2019 LELE HUGHES MD Ot 724. 02 SPINAL STENOSIS, LUMBAR REG, W/OUT NEURO 12/21/2019 LELE HUGHES MD Ot 733. 13 PATHOLOGIC FRACTURE, VERTEBRAE 12/21/2019 OBINNA PRASAD MD Ot 255 .9 ADRENAL DISORDER N0S 12/21/2019 OBINNA PRASAD MD Ot 244 .9 HYPOTHYROIDISM NOS 12/21/2019 OBINNA PRASAD MD Ot 401 .9 HYPERTENSION NOS 12/21/2019 JOVANA HULL MD Ot 388.70 OTALGIA NOS 12/21/2019 JOVANA HULL MD Ot 462 ACUTE PHARYNGITIS 12/21/2019 JOVANA HULL MD Ot 478 .5 VOCAL CORD DISEASE NEC 12/21/2019 OBINNA PRASAD MD Ot J18 .9 PNEUMONIA, UNSPECIFIED ORGANISM 12/21/2019 MERRITT VALENZUELA DO L Ot D35.00 BENIGN NEOPLASM OF UNSPECIFIED ADRENAL G 12/21/2019 OBINNA PRASAD MD Ot R91 .8 OTHER NONSPECIFIC ABNORMAL FINDING OF SUSAN 12/21/2019 VERONICA LAU [facility], ALI FACP CCDS Ot D35.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 12/21/2019 VERONICA LAU [facility], ALI FACP CCDS Ot E87.1 HYPO-OSMOLALITY AND HYPONATREMIA 12/21/2019 VERONICA LAU FAC, ALI FACP CCDS Ot I10 ESSENTIAL (PRIMARY) HYPERTENSION 12/21/2019 VERONICA LAU [facility], ALI FACP CCDS Ot I48.0 PAROXYSMAL ATRIAL FIBRILLATION 12/21/2019 VERONICA LAU [facility], ALI FACP CCDS Ot I50.32 CHRONIC DIASTOLIC (CONGESTIVE) HEART FAROOQ 12/21/2019 VERONICA LAU [facility], ALI FACP CCDS Ot J43.8 OTHER EMPHYSEMA 12/21/2019 VERONICA LAU [facility], ALI FACP CCDS Ot Z72.0 TOBACCO USE 12/21/2019 NIVIA LAU, DIALLO S Ot J44.9 CHRONIC OBSTRUCTIVE PULMONARY DISEASE, U 12/21/2019 ADINA LOZANO MD Ot R06.0 2 SHORTNESS OF BREATH 12/21/2019 NIVIA LAU, DIALLO S Ot J44.9 CHRONIC OBSTRUCTIVE PULMONARY DISEASE, U 12/21/2019 RONNY BENEDICT MD Ot T21.25XA BURN OF SECOND DEGREE OF BUTTOCK, INITIA 12/21/2019 RONNY BENEDICT MD Ot T24.212A BURN OF SECOND DEGREE OF LEFT THIGH, INI 12/21/2019 RONNY BENEDICT MD Ot T65.292A TOXIC EFFECT OF TOBACCO AND NICOTINE, SE 12/21/2019 RONNY BENEDICT MD Ot X12.XXXA CONTACT WITH OTHER HOT FLUIDS, INITIAL E 12/21/2019 RONNY BENEDICT MD Ot Y93.G 3 ACTIVITY, COOKING AND BAKING 12/21/2019 ECTOR DORSEY APRN Ot T21.25XA BURN OF SECOND DEGREE OF BUTTOCK, INITIA 12/21/2019 ECTOR DORSEY APRN Ot T24.212A BURN OF SECOND DEGREE OF LEFT THIGH, INI 12/21/2019 ECTOR DORSEY APRN Ot T65.292A TOXIC EFFECT OF TOBACCO AND NICOTINE, SE 12/21/2019 ECTOR DORSEY APRN Ot X12.XXXA CONTACT WITH OTHER HOT FLUIDS, INITIAL E 12/21/2019 ECTOR DORSEY APRN Ot Y93.G3 ACTIVITY, COOKING AND BAKING 12/21/2019 OBINNA PRASAD MD, Ot M81 .0 AGE-RELATED OSTEOPOROSIS W/O CURRENT PAT 12/21/2019 OBINNA PRASAD MD, Ot Z12.31 ENCNTR SCREEN MAMMOGRAM FOR MALIGNANT NE 12/21/2019 OBINNA PRASAD MD, Ot Z12.31 ENCNTR SCREEN MAMMOGRAM FOR MALIGNANT NE 12/21/2019 BIANCA BAER, MERRITT Burnett Ot E27.8 OTHER SPECIFIED DISORDERS OF ADRENAL GLA 12/21/2019 MERRITT VALENZUELA DO L Ot E55.9 VITAMIN D DEFICIENCY, UNSPECIFIED 12/21/2019 MERRITT VALENZUELA DO L Ot E87.1 HYPO-OSMOLALITY AND HYPONATREMIA 12/21/2019 JOVANA HULL MD Ot I65.22 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 12/21/2019 JOVANA HULL MD Ot J38 .7 OTHER DISEASES OF LARYNX 12/21/2019 JOVANA HULL MD Ot R59 .0 LOCALIZED ENLARGED LYMPH NODES 12/21/2019 VERONICA LAU FACC, ALI FACP CCDS Ot I11.9 HYPERTENSIVE HEART DISEASE WITHOUT HEART 12/21/2019 VERONICA LAU FACC, ALI FACP CCDS Ot I25.10 ATHSCL HEART DISEASE OF [place] CORONARY 12/21/2019 VERONICA LAU FACC, ALI FACP CCDS Ot I48.0 PAROXYSMAL ATRIAL FIBRILLATION 12/21/2019 JOVANA HULL MD Ot C32 .1 MALIGNANT NEOPLASM OF SUPRAGLOTTIS 12/21/2019 JOVANA HULL MD Ot R94 .8 ABNORMAL RESULTS OF FUNCTION STUDIES OF 12/21/2019 REZA LAU, JENNIFER Rucker Ot C32.1 MALIGNANT NEOPLASM OF SUPRAGLOTTIS 12/21/2019 OBINNA PRASAD MD Ot I65.23 OCCLUSION AND STENOSIS OF BILATERAL FREEMAN 12/21/2019 OBINNA PRASAD MD Ot R13.13 DYSPHAGIA, PHARYNGEAL PHASE 12/21/2019 OBINNA PRASAD MD, Ot R22 .1 LOCALIZED SWELLING, MASS AND LUMP, NECK 12/21/2019 JOVANA HULL MD Ot C32 .9 MALIGNANT NEOPLASM OF LARYNX, UNSPECIFIE 12/21/2019 JOVANA HULL MD Ot J31 .2 CHRONIC PHARYNGITIS 12/21/2019 JOVANA HULL MD Ot Z92 .3 PERSONAL HISTORY OF IRRADIATION 12/21/2019 BLU BARRERA MD Ot 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 4 CHRONIC PAIN SYNDROME 12/21/2019 LELE HUGHES MD Ot 721. 3 LUMBOSACRAL SPONDYLOSIS 12/21/2019 LELE HUGHES MD Ot 722. 52 LUMB/LUMBOSAC DISC DEGEN 12/21/2019 LELE HUGHES MD Ot 729. 1 MYALGIA AND MYOSITIS NOS 12/21/2019 LELE HUGHES MD Ot V58. 69 OT MED,LT,CURRENT USE 12/21/2019 OBINNA PRASAD MD Ot 921 .0 BLACK EYE NOS 12/21/2019 OBINNA PRASAD MD Ot 959.01 HEAD INJURY, NOS 12/21/2019 OBINNA PRASAD MD Ot E000.8 OTHER EXTERNAL CAUSE STATUS 12/21/2019 OBINNA PRASAD MD Ot E849.0 ACCIDENT IN HOME 12/21/2019 OBINNA PRASAD MD Ot E917.3 FURNIT W/O SUB FALL 12/21/2019 LELE HUGHES MD Ot 724. 02 SPINAL STENOSIS, LUMBAR REG, W/OUT NEURO 12/21/2019 LELE HUGHES MD Ot 733. 13 PATHOLOGIC FRACTURE, VERTEBRAE 12/21/2019 OBINNA PRASAD MD Ot 255 .9 ADRENAL DISORDER N0S 12/21/2019 OBINNA PRASAD MD Ot 244 .9 HYPOTHYROIDISM NOS 12/21/2019 OBINNA PRASAD MD Ot 401 .9 HYPERTENSION NOS 12/21/2019 JOVANA HULL MD Ot 388.70 OTALGIA NOS 12/21/2019 JOVANA HULL MD Ot 462 ACUTE PHARYNGITIS 12/21/2019 JOVANA HULL MD Ot 478 .5 VOCAL CORD DISEASE NEC 12/21/2019 OBINNA PRASAD MD Ot J18 .9 PNEUMONIA, UNSPECIFIED ORGANISM 12/21/2019 MERRITT VALENZUELA DO Ot D35.00 BENIGN NEOPLASM OF UNSPECIFIED ADRENAL G 12/21/2019 OBINNA PRASAD MD Ot R91 .8 OTHER NONSPECIFIC ABNORMAL FINDING OF SUSAN 12/21/2019 VERONICA LAU FACC, ALI FACP CCDS Ot D35.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 12/21/2019 VERONICA LAU FACC, ALI FACP CCDS Ot E87.1 HYPO-OSMOLALITY AND HYPONATREMIA 12/21/2019 VERONICA LAU FAC, ALI FACP CCDS Ot I10 ESSENTIAL (PRIMARY) HYPERTENSION 12/21/2019 VERONICA LAU FACC, ALI FACP CCDS Ot I48.0 PAROXYSMAL ATRIAL FIBRILLATION 12/21/2019 VERONICA LAU FAC, ALI FACP CCDS Ot I50.32 CHRONIC DIASTOLIC (CONGESTIVE) HEART FAROOQ 12/21/2019 VERONICA LAU FAC, ALI FACP CCDS Ot J43.8 OTHER EMPHYSEMA 12/21/2019 VERONICA LAU FAC, ALI FACP CCDS Ot Z72.0 TOBACCO USE 12/21/2019 NIVIA LAU, DIALLO S Ot J44.9 CHRONIC OBSTRUCTIVE PULMONARY DISEASE, U 12/21/2019 ADINA LOZANO MD Ot R06.0 2 SHORTNESS OF BREATH 12/21/2019 DIALLO GONZÁLES MD S Ot J44.9 CHRONIC OBSTRUCTIVE PULMONARY DISEASE, U 12/21/2019 RONNY BENEDICT MD Ot T21.25XA BURN OF SECOND DEGREE OF BUTTOCK, INITIA 12/21/2019 RONNY BENEDICT MD Ot T24.212A BURN OF SECOND DEGREE OF LEFT THIGH, INI 12/21/2019 RONNY BENEDICT MD Ot T65.292A TOXIC EFFECT OF TOBACCO AND NICOTINE, SE 12/21/2019 RONNY BENEDICT MD Ot X12.XXXA CONTACT WITH OTHER HOT FLUIDS, INITIAL E 12/21/2019 RONNY BENEDICT MD Ot Y93.G 3 ACTIVITY, COOKING AND BAKING 12/21/2019 ECTOR DORSEY APRN Ot T21.25XA BURN OF SECOND DEGREE OF BUTTOCK, INITIA 12/21/2019 ECTOR DORSEY APRN Ot T24.212A BURN OF SECOND DEGREE OF LEFT THIGH, INI 12/21/2019 ECTOR DORSEY APRN Ot T65.292A TOXIC EFFECT OF TOBACCO AND NICOTINE, SE 12/21/2019 ECTOR DORSEY APRN Ot X12.XXXA CONTACT WITH OTHER HOT FLUIDS, INITIAL E 12/21/2019 ECTOR DORSEY APRN Ot Y93.G3 ACTIVITY, COOKING AND BAKING 12/21/2019 OBINNA PRASAD MD, Ot M81 .0 AGE-RELATED OSTEOPOROSIS W/O CURRENT PAT 12/21/2019 OBINNA PRASAD MD, Ot Z12.31 ENCNTR SCREEN MAMMOGRAM FOR MALIGNANT NE 12/21/2019 OBINNA PRASAD MD, Ot Z12.31 ENCNTR SCREEN MAMMOGRAM FOR MALIGNANT NE 12/21/2019 MERRITT VALENZUELA DO Ot E27.8 OTHER SPECIFIED DISORDERS OF ADRENAL GLA 12/21/2019 MERRITT VALENZUELA DO Ot E55.9 VITAMIN D DEFICIENCY, UNSPECIFIED 12/21/2019 MERRITT VALENZUELA DO Ot E87.1 HYPO-OSMOLALITY AND HYPONATREMIA 12/21/2019 JOVANA HULL MD Ot I65.22 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 12/21/2019 JOVANA HULL MD Ot J38 .7 OTHER DISEASES OF LARYNX 12/21/2019 JOVANA HULL MD Ot R59 .0 LOCALIZED ENLARGED LYMPH NODES 12/21/2019 VERONICA LAU FAC, ALI FACP CCDS Ot I11.9 HYPERTENSIVE HEART DISEASE WITHOUT HEART 12/21/2019 VERONICA LAU [facility], ALI FACP CCDS Ot I25.10 ATHSCL HEART DISEASE OF [place] CORONARY 12/21/2019 VERONICA LAU [facility], ALI FACP CCDS Ot I48.0 PAROXYSMAL ATRIAL FIBRILLATION 12/21/2019 JOVANA HULL MD Ot C32 .1 MALIGNANT NEOPLASM OF SUPRAGLOTTIS 12/21/2019 JOVANA HULL MD Ot R94 .8 ABNORMAL RESULTS OF FUNCTION STUDIES OF 12/21/2019 REZA LAU, JENNIFER Rucker Ot C32.1 MALIGNANT NEOPLASM OF SUPRAGLOTTIS 12/21/2019 OBINNA PRASAD MD Ot I65.23 OCCLUSION AND STENOSIS OF BILATERAL FREEMAN 12/21/2019 OBINNA PRASAD MD Ot R13.13 DYSPHAGIA, PHARYNGEAL PHASE 12/21/2019 OBINNA PRASAD MD Ot R22 .1 LOCALIZED SWELLING, MASS AND LUMP, NECK 12/21/2019 JOVANA HULL MD Ot C32 .9 MALIGNANT NEOPLASM OF LARYNX, UNSPECIFIE 12/21/2019 JOVANA HULL MD Ot J31 .2 CHRONIC PHARYNGITIS 12/21/2019 JOVANA HULL MD Ot Z92 .3 PERSONAL HISTORY OF IRRADIATION 12/21/2019 BLU BARRERA MD Ot 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 4 CHRONIC PAIN SYNDROME 12/21/2019 LELE HUGHES MD Ot 721. 3 LUMBOSACRAL SPONDYLOSIS 12/21/2019 LELE HUGHES MD Ot 722. 52 LUMB/LUMBOSAC DISC DEGEN 12/21/2019 LELE HUGHES MD Ot 729. 1 MYALGIA AND MYOSITIS NOS 12/21/2019 LELE HUGHES MD Ot V58. 69 OTH MED,LT,CURRENT USE 12/21/2019 OBINNA PRASAD MD Ot 921 .0 BLACK EYE NOS 12/21/2019 OBINNA PRASAD MD Ot 959.01 HEAD INJURY, NOS 12/21/2019 OBINNA PRASAD MD Ot E000.8 OTHER EXTERNAL CAUSE STATUS 12/21/2019 OBINNA PRASAD MD Ot E849.0 ACCIDENT IN HOME 12/21/2019 OBINNA PRASAD MD Ot E917.3 FURNIT W/O SUB FALL 12/21/2019 LELE HUGHES MD Ot 724. 02 SPINAL STENOSIS, LUMBAR REG, W/OUT NEURO 12/21/2019 LELE HUGHES MD Ot 733. 13 PATHOLOGIC FRACTURE, VERTEBRAE 12/21/2019 OBINNA PRASAD MD Ot 255 .9 ADRENAL DISORDER N0S 12/21/2019 OBINNA PRASAD MD Ot 244 .9 HYPOTHYROIDISM NOS 12/21/2019 OBINNA PRASAD MD Ot 401 .9 HYPERTENSION NOS 12/21/2019 JOVANA HULL MD Ot 388.70 OTALGIA NOS 12/21/2019 JOVANA HULL MD Ot 462 ACUTE PHARYNGITIS 12/21/2019 JOVANA HULL MD Ot 478 .5 VOCAL CORD DISEASE NEC 12/21/2019 OBINNA PRASAD MD Ot J18 .9 PNEUMONIA, UNSPECIFIED ORGANISM 12/21/2019 MERRITT VALENZUELA DO Ot D35.00 BENIGN NEOPLASM OF UNSPECIFIED ADRENAL G 12/21/2019 OBINNA PRASAD MD Ot R91 .8 OTHER NONSPECIFIC ABNORMAL FINDING OF SUSAN 12/21/2019 VERONICA LAU FACC, ALI FACP CCDS Ot D35.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 12/21/2019 VERONICA LAU FACC, ALI FACP CCDS Ot E87.1 HYPO-OSMOLALITY AND HYPONATREMIA 12/21/2019 VERONICA LAU FACC, ALI FACP CCDS Ot I10 ESSENTIAL (PRIMARY) HYPERTENSION 12/21/2019 VERONICA LAU FACC, ALI FACP CCDS Ot I48.0 PAROXYSMAL ATRIAL FIBRILLATION 12/21/2019 VERONICA LAU FACC, ALI FACP CCDS Ot I50.32 CHRONIC DIASTOLIC (CONGESTIVE) HEART FAROOQ 12/21/2019 VERONICA LAU FACC, ALI FACP CCDS Ot J43.8 OTHER EMPHYSEMA 12/21/2019 VERONICA LAU FACC, ALI FACP CCDS Ot Z72.0 TOBACCO USE 12/21/2019 DIALLO GONZÁLES MD S Ot J44.9 CHRONIC OBSTRUCTIVE PULMONARY DISEASE, U 12/21/2019 ADINA LOZANO MD Ot R06.0 2 SHORTNESS OF BREATH 12/21/2019 DIALLO GONZÁLES MD S Ot J44.9 CHRONIC OBSTRUCTIVE PULMONARY DISEASE, U 12/21/2019 RONNY BENEDICT MD Ot T21.25XA BURN OF SECOND DEGREE OF BUTTOCK, INITIA 12/21/2019 RONNY BENEDICT MD Ot T24.212A BURN OF SECOND DEGREE OF LEFT THIGH, INI 12/21/2019 RONNY BENEDICT MD Ot T65.292A TOXIC EFFECT OF TOBACCO AND NICOTINE, SE 12/21/2019 RONNY BENEDICT MD Ot X12.XXXA CONTACT WITH OTHER HOT FLUIDS, INITIAL E 12/21/2019 RONNY BENEDICT MD Ot Y93.G 3 ACTIVITY, COOKING AND BAKING 12/21/2019 ECTOR DORSEY SMALL [employer] ASSEMBLER Ot T21.25XA BURN OF SECOND DEGREE OF BUTTOCK, INITIA 12/21/2019 ECTOR DORSEY [employer] Ot T24.212A BURN OF SECOND DEGREE OF LEFT THIGH, INI 12/21/2019 ECTOR DORSEY [employer] Ot T65.292A TOXIC EFFECT OF TOBACCO AND NICOTINE, SE 12/21/2019 ECTOR DORSEY APRN Ot X12.XXXA CONTACT WITH OTHER HOT FLUIDS, INITIAL E 12/21/2019 ECTOR DORSEY APRN Ot Y93.G3 ACTIVITY, COOKING AND BAKING 12/21/2019 OBINNA PRASAD MD Ot M81 .0 AGE-RELATED OSTEOPOROSIS W/O CURRENT PAT 12/21/2019 OBINNA PRASAD MD Ot Z12.31 ENCNTR SCREEN MAMMOGRAM FOR MALIGNANT NE 12/21/2019 OBINNA PRASAD MD Ot Z12.31 ENCNTR SCREEN MAMMOGRAM FOR MALIGNANT NE 12/21/2019 MERRITT VALENZUELA DO Ot E27.8 OTHER SPECIFIED DISORDERS OF ADRENAL GLA 12/21/2019 MERRITT VALENZUELA DO Ot E55.9 VITAMIN D DEFICIENCY, UNSPECIFIED 12/21/2019 MERRITT VALENZUELA DO Ot E87.1 HYPO-OSMOLALITY AND HYPONATREMIA 12/21/2019 JOVANA HULL MD Ot I65.22 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 12/21/2019 JOVANA HULL MD Ot J38 .7 OTHER DISEASES OF LARYNX 12/21/2019 JOVANA HULL MD Ot R59 .0 LOCALIZED ENLARGED LYMPH NODES 12/21/2019 VERONICA LAU FAC, ALI FACP CCDS Ot I11.9 HYPERTENSIVE HEART DISEASE WITHOUT HEART 12/21/2019 VERONICA LAU FACC, ALI FACP CCDS Ot I25.10 ATHSCL HEART DISEASE OF [place] CORONARY 12/21/2019 VERONICA LAU FAC, ALI FACP CCDS Ot I48.0 PAROXYSMAL ATRIAL FIBRILLATION 12/21/2019 JOVANA HULL MD, Ot C32 .1 MALIGNANT NEOPLASM OF SUPRAGLOTTIS 12/21/2019 JOVANA HULL MD Ot R94 .8 ABNORMAL RESULTS OF FUNCTION STUDIES OF 12/21/2019 REZA LAU, JENNIFER Rucker Ot C32.1 MALIGNANT NEOPLASM OF SUPRAGLOTTIS 12/21/2019 OBINNA PRASAD MD Ot I65.23 OCCLUSION AND STENOSIS OF BILATERAL [place]RE[place] 12/21/2019 OBINNA PRASAD MD Ot R13.13 DYSPHAGIA, PHARYNGEAL PHASE 12/21/2019 OBINNA PRASAD MD Ot R22 .1 LOCALIZED SWELLING, MASS AND LUMP, NECK 12/21/2019 JOVANA HULL MD Ot C32 .9 MALIGNANT NEOPLASM OF LARYNX, UNSPECIFIE 12/21/2019 JOVANA HULL MD Ot J31 .2 CHRONIC PHARYNGITIS 12/21/2019 JOVANA HULL MD Ot Z92 .3 PERSONAL HISTORY OF IRRADIATION 12/21/2019 BLU BARRERA MD Ot 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 4 CHRONIC PAIN SYNDROME 12/21/2019 LELE HUGHES MD Ot 721. 3 LUMBOSACRAL SPONDYLOSIS 12/21/2019 LELE HUGHES MD Ot 722. 52 LUMB/LUMBOSAC DISC DEGEN 12/21/2019 LELE HUGHES MD Ot 729. 1 MYALGIA AND MYOSITIS NOS 12/21/2019 LELE HUGHES MD Ot V58. 69 OTH MED,LT,CURRENT USE 12/21/2019 OBINNA PRASAD MD Ot 921 .0 BLACK EYE NOS 12/21/2019 OBINNA PRASAD MD Ot 959.01 HEAD INJURY, NOS 12/21/2019 OBINNA PRASAD MD Ot E000.8 OTHER EXTERNAL CAUSE STATUS 12/21/2019 OBINNA PRASAD MD Ot E849.0 ACCIDENT IN HOME 12/21/2019 OBINNA PRASAD MD Ot E917.3 FURNIT W/O SUB FALL 12/21/2019 SAUL LAU, LELE Mera Ot 724. 02 SPINAL STENOSIS, LUMBAR REG, W/OUT NEURO 12/21/2019 LELE HUGHES MD Ot 733. 13 PATHOLOGIC FRACTURE, VERTEBRAE 12/21/2019 OBINNA PRASAD MD Ot 255 .9 ADRENAL DISORDER N0S 12/21/2019 OBINNA PRASAD MD Ot 244 .9 HYPOTHYROIDISM NOS 12/21/2019 OBINNA PRASAD MD Ot 401 .9 HYPERTENSION NOS 12/21/2019 JOVANA HULL MD P Ot 388.70 OTALGIA NOS 12/21/2019 JOVANA HULL MD P Ot 462 ACUTE PHARYNGITIS 12/21/2019 JOVANA HULL MD P Ot 478 .5 VOCAL CORD DISEASE NEC 12/21/2019 OBINNA PRASAD MD Ot J18 .9 PNEUMONIA, UNSPECIFIED ORGANISM 12/21/2019 BIANCA DO, MERRITT L Ot D35.00 BENIGN NEOPLASM OF UNSPECIFIED ADRENAL G 12/21/2019 OBINNA PRASAD MD Ot R91 .8 OTHER NONSPECIFIC ABNORMAL FINDING OF SUSAN 12/21/2019 VERONICA LAU FAC, ALI FACP CCDS Ot D35.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 12/21/2019 VERONICA LAU FACC, ALI FACP CCDS Ot E87.1 HYPO-OSMOLALITY AND HYPONATREMIA 12/21/2019 VERONICA LAU FACC, ALI FACP CCDS Ot I10 ESSENTIAL (PRIMARY) HYPERTENSION 12/21/2019 VERONICA LAU FACC, ALI FACP CCDS Ot I48.0 PAROXYSMAL ATRIAL FIBRILLATION 12/21/2019 VERONICA LAU FACC, ALI FACP CCDS Ot I50.32 CHRONIC DIASTOLIC (CONGESTIVE) HEART FAROOQ 12/21/2019 VERONICA LAU FACC, ALI FACP CCDS Ot J43.8 OTHER EMPHYSEMA 12/21/2019 VERONICA MARIEC, ALI FACP CCDS Ot Z72.0 TOBACCO USE 12/21/2019 NIVIA LAU, DIALLO S Ot J44.9 CHRONIC OBSTRUCTIVE PULMONARY DISEASE, U 12/21/2019 BLAKE LAU, ADINA Mullins Ot R06.0 2 SHORTNESS OF BREATH 12/21/2019 NIVIA LAU, DIALLO S Ot J44.9 CHRONIC OBSTRUCTIVE PULMONARY DISEASE, U 12/21/2019 RONNY BENEDICT MD Ot T21.25XA BURN OF SECOND DEGREE OF BUTTOCK, INITIA 12/21/2019 RONNY BENEDICT MD Ot T24.212A BURN OF SECOND DEGREE OF LEFT THIGH, INI 12/21/2019 RONNY BENEDICT MD Ot T65.292A TOXIC EFFECT OF TOBACCO AND NICOTINE, SE 12/21/2019 RONNY BENEDICT MD Ot X12.XXXA CONTACT WITH OTHER HOT FLUIDS, INITIAL E 12/21/2019 RONNY BENEDICT MD Ot Y93.G 3 ACTIVITY, COOKING AND BAKING 12/21/2019 ECTOR DORSEY APRN Ot T21.25XA BURN OF SECOND DEGREE OF BUTTOCK, INITIA 12/21/2019 ECTOR DORSEY APRN Ot T24.212A BURN OF SECOND DEGREE OF LEFT THIGH, INI 12/21/2019 ECTOR DORSEY APRN Ot T65.292A TOXIC EFFECT OF TOBACCO AND NICOTINE, SE 12/21/2019 ECTOR DORSEY APRN Ot X12.XXXA CONTACT WITH OTHER HOT FLUIDS, INITIAL E 12/21/2019 ECTOR DORSEY APRN Ot Y93.G3 ACTIVITY, COOKING AND BAKING 12/21/2019 OBINNA PRASAD MD Ot M81 .0 AGE-RELATED OSTEOPOROSIS W/O CURRENT PAT 12/21/2019 OBINNA PRASAD MD Ot Z12.31 ENCNTR SCREEN MAMMOGRAM FOR MALIGNANT NE 12/21/2019 OBINNA PRASAD MD Ot Z12.31 ENCNTR SCREEN MAMMOGRAM FOR MALIGNANT NE 12/21/2019 MERRITT VALENZUELA DO Ot E27.8 OTHER SPECIFIED DISORDERS OF ADRENAL GLA 12/21/2019 MERRITT VALENZUELA DO Ot E55.9 VITAMIN D DEFICIENCY, UNSPECIFIED 12/21/2019 MERRITT VALENZUELA DO Ot E87.1 HYPO-OSMOLALITY AND HYPONATREMIA 12/21/2019 JOVANA HULL MD Ot I65.22 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 12/21/2019 JOVANA HULL MD Ot J38 .7 OTHER DISEASES OF LARYNX 12/21/2019 JOVANA HULL MD Ot R59 .0 LOCALIZED ENLARGED LYMPH NODES 12/21/2019 VERONICA LAU [facility], [facility] ANGELA ALMONTES Ot I11.9 HYPERTENSIVE HEART DISEASE WITHOUT HEART 12/21/2019 VERONICA LAU [facility], [facility] ANGELA ALMONTES Ot I25.10 ATHSCL HEART DISEASE OF [place] CORONARY 12/21/2019 VERONICA LAU [facility], ALI ANGELA ALMONTES Ot I48.0 PAROXYSMAL ATRIAL FIBRILLATION 12/21/2019 JOVANA HULL MD Ot C32 .1 MALIGNANT NEOPLASM OF SUPRAGLOTTIS 12/21/2019 JOVANA HULL MD Ot R94 .8 ABNORMAL RESULTS OF FUNCTION STUDIES OF 12/21/2019 JENNIFER COBB MD, Ot C32.1 MALIGNANT NEOPLASM OF SUPRAGLOTTIS 12/21/2019 OBINNA PRASAD MD, Ot I65.23 OCCLUSION AND STENOSIS OF BILATERAL [place]REEMAN 12/21/2019 OBINNA PRASAD MD Ot R13.13 DYSPHAGIA, PHARYNGEAL PHASE 12/21/2019 OBINNA PRASAD MD, Ot R22 .1 LOCALIZED SWELLING, MASS AND LUMP, NECK 12/21/2019 JOVANA HULL MD, Ot C32 .9 MALIGNANT NEOPLASM OF LARYNX, UNSPECIFIE 12/21/2019 JOVANA HULL MD Ot J31 .2 CHRONIC PHARYNGITIS 12/21/2019 JOVANA HULL MD Ot Z92 .3 PERSONAL HISTORY OF IRRADIATION 12/21/2019 BLU BARRERA MD Ot C10.3 MALIGNANT NEOPLASM OF POSTERIOR WALL OF 12/21/2019 BLU BARRERA MD, Ot C32.1 MALIGNANT NEOPLASM OF SUPRAGLOTTIS 12/21/2019 OBINNA PRASAD MD, Ot R13.12 DYSPHAGIA, OROPHARYNGEAL PHASE 12/21/2019 BLU BARRERA MD, Ot C10.3 MALIGNANT NEOPLASM OF POSTERIOR WALL OF 12/21/2019 BLU BARRERA MD, Ot C32.1 MALIGNANT NEOPLASM OF SUPRAGLOTTIS Procedures There is no data. Results Test [...] 7-25 CREATININE 0.83 mg/dL 0.60-0.93 eGFR NON-AFR. CAMBODIAN 70 mL/min/1.73m2 > OR = 60 eGFR [...] NOTE NRG Automated blood complete blood count (he mogram) panel - 07/10/19 07:03 Blood leukocytes automated [...] g/dL 3.2-4.5 CALCIUM CORRECTED 8.8 mg/dL 8.5-10.1 Complete blood count (CBC) with automate d white blood cell (WBC) differential - 12/21/19 11:45 Blood leukocytes automated count (number/volume) 14.0 10*3/uL 4.3-11.0 Blood erythrocytes automated count (number/volume) 2.77 10*6/uL 4.35-5.85 Venous blood hemoglobin measurement (mass/volume) 8.3 g/dL 11.5-16.0 Blood hematocrit (volume fraction) 25 % 35-52 Automated erythrocyte mean corpuscular volume 89 [ foz_us] 80-99 Automated erythrocyte mean corpuscular h emoglobin (mass per erythrocyte) 30 pg 25-34 Automated erythrocyte mean corpuscular h emoglobin concentration measurement (mass/volume) 34 g/dL 32-36 Automated erythrocyte distribution width ratio 15. 3 % 10.0- 14.5 Automated blood platelet count (count/volume) 688 10*3/uL 130-400 Automated blood platelet mean volume measurement 8.3 [foz_us] 7.4-10.4 Automated blood neutrophils/100 leukocytes 87 % 42-75 Automated blood lymphocytes/100 leukocytes 5 % 12-44 Blood monocytes/100 leukocytes 7 % 0-12 Automated blood eosinophils/100 leukocytes 0 % 0-10 Automated blood basophils/100 leukocytes 0 % 0-10 Blood neutrophils automated count (number/volume) 12.2 10*3 1.8-7.8 Blood lymphocytes automated count (number/volume) 0.7 10*3 1.0-4.0 Blood monocytes automated count (number/volume) 1. 0 10*3 0.0-1.0 Automated eosinophil count 0.0 10*3/uL 0 .0-0.3 Automated blood basophil count (count/volume) 0.0 10*3/uL 0.0-0.1 Comprehensive metabolic panel - 12/21/19 11:45 Serum or plasma sodium measurement (moles/volume) 130 mmol/L 135-145 Serum or plasma potassium measurement (moles/volume) 5.6 mmol/L 3.6-5.0 Serum or plasma chloride measurement (moles/volume) 97 mmol/L 98-107 Carbon dioxide 25 mmol/L 21-32 Serum or plasma anion gap determination (moles/volume) 8 mmol/L 5-14 Serum or plasma urea nitrogen measurement (mass/volume ) 6 mg/dL 7-18 Serum or plasma creatinine measurement (mass/volume) 0.53 mg/dL 0.60-1.30 Serum or plasma urea nitrogen/creatinine mass ratio 11 NRG Serum or plasma creatinine measurement w ith calculation of estimated glomerular filtration rate > NRG Serum or plasma glucose measurement (mass/volume) 90 mg/dL 70-105 Serum or plasma calcium measurement (mass/volume) 7.3 mg/dL 8.5-10.1 Serum or plasma total bilirubin measurement (mass/volu me) 0.3 mg/dL 0.1-1.0 Serum or plasma alkaline phosphatase flores surement (enzymatic activity/volume) 180 U/L 40-136 Serum or plasma aspartate aminotransfera se measurement (enzymatic activity/volume) 31 U/L 5-34 Serum or plasma alanine aminotransferase measurement (enzymatic activity/volume) 10 U/L 0-55 Serum or plasma protein measurement (mass/volume) 5.2 g/dL 6.4-8.2 Serum or plasma albumin measurement (mass/volume) 2.3 g/dL 3.2-4.5 CALCIUM CORRECTED 8.7 mg/dL 8.5-10.1 Manual absolute plasma cell count - 12/11 11:45 Blood monocytes/100 leukocytes 3 % NRG Manual blood segmented neutrophils/100 leukocytes 87 % NRG Blood band neutrophils/100 leukocytes 3 % NRG Manual blood lymphocytes/100 leukocytes 7 % NRG Manual eosinophils/100 leukocytes in nose 0 % NRG Manual blood basophils/100 leukocytes 0 % NRG Blood anisocytosis detection by light microscopy S LIGHT NRG Blood target cells detection by light microscopy S LIGHT NRG THYROID STIMULATING HORMONE - 12/21/19 1 1:45 THYROID STIMULATING HORMONE 1.23 u[iU]/mL 0.35-4.94 Encounters ACCT No. Visit Date/Time Discharge Status Pt. Type Provider Facility Loc./Unit Complaint [id number] 11/06/2014 13:27:00 11/06/2014 23:59: 59 CLS Outpatient CLARISSE GARCIA APRN [id number] 10/09/2014 08:45:00 10/09/2014 23:59: 59 [place] [id number] 11/19/2019 12:00:00 11/19/2019 23:59:5 9 CLS Outpatient OBINNA PRASAD MD [facility] [id number] 06/26/2019 11:20:00 Document Registration [id number] 05/11/2019 12:55:00 Document Registration [id number] 05/08/2019 10:20:00 Document Registration [id number] 04/19/2019 09:10:00 Document Registration [id number] 11/07/2018 09:40:00 Document Registration [id number] 07/20/2018 09:00:00 Document Registration [id number] 05/30/2018 09:00:00 Document Registration [id number] 05/11/2018 09:40:00 Document Registration [id number] 06/07/2017 10:00:00 Document Registration [id number] 12/21/2019 09:26:00 12:25:00 DIS Outpatient RAYNA FARAH MD [facility] 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 [id number] 12/14/2019 11:00:00 11:41:00 DIS Outpatient RAYNA FARAH MD [facility] PREOP PEG TUBE PLACEMENT [id number] 12/04/2019 08:29:00 23:59:59 CLS Outpatient BLU BARRERA MD [facility] RAD SUPRAGLOTTIC SQUAMOUS C ELL CA [id number] 10/24/2019 21:10:00 17:30:00 DIS Inpatient JARED HERNANDEZ DO, [facility] 4TH DEHYDRATION, INTRACTABL E CA (THROAT)PAIN [id number] 10/12/2019 10:03:00 23:59:59 CLS Outpatient JOVANA HULL MD [facility] RAD HX RADIATION,CHRONIC SO RE THROAT [id number] 09/17/2019 13:10:00 23:59:59 CLS Preadmit OBINNA PRASAD MD [facility] SDC OSTEOPOROSIS M81.0 [id number] 07/27/2019 13:10:00 15:10:00 DIS Outpatient RAYNA FARAH MD [facility] ENDO ANEMIA/CHANGE IN BOWEL HABIT [id number] 07/26/2019 06:16:00 09:13:00 DIS Outpatient RAYNA FARAH MD [facility] PREOP COLONOSCOPY/EGD [id number] 07/10/2019 06:46:00 13:45:00 DIS Outpatient VERONICA LAU FACTERRY Jones FACP CC DS [facility] CATH CHEST PAIN, CAROTID ARTERIAL DISEASE [id number] 05/29/2019 13:00:00 23:59:59 CLS Preadmit VERONICA LAU FACKaren, TERRY MILLER CCDS [facility] CATH PALPITATIONS,CHF,HTN,SOB,TOBACCO USER,COPD [id number] 05/16/2019 15:08:00 23:59:59 CLS Outpatient OBINNA PRASAD MD [facility] RAD PHARYNGEAL DYSPHAGIA,TH ROAT SWELLING [id number] 10/10/2018 00:10:00 23:59:59 CLS Preadmit JENNIFER COBB MD [facility] ONC [id number] 09/20/2018 10:45:00 00:01:00 DIS Outpatient REZA LAU, JENNIFER Rucker [facility] ONC [id number] 07/28/2018 12:47:00 14:00:00 DIS Outpatient OBINNA PRASAD MD [facility] M81.0 [id number] 07/11/2018 08:05:00 23:59:59 CLS Outpatient JOVANA HULL MD [facility] RAD T2 SCCA OF EPIGIOTTIS [id number] 06/29/2018 08:09:00 13:20:00 DIS Outpatient JOVANA HULL MD [facility] EPIGLOTTIC MASS [id number] 06/28/2018 09:42:00 15:40:00 DIS Outpatient JOVANA HULL MD [facility] PREOP EPIGLOTTIC MASS [id number] 06/22/2018 08:06:00 23:59:59 CLS Outpatient VERONICA LAU FACC, TERRY MILLER CC DS [facility] CARD CAD [id number] 06/09/2018 15:02:00 23:59:59 CLS Preadmit JOVANA HULL MD [facility] RAD RIGHT EPIGLOTIC MASS [id number] 06/09/2018 12:49:00 23:59:59 CLS Outpatient JOVANA HULL MD [facility] RAD RIGHT EPIGLOTIC MASS [id number] 03/01/2018 08:59:00 12:30:00 DIS Outpatient RAYNA FARAH MD [facility] ENDO +BLOOD IN STOOLS/CONSTI PATION/HX PEREZ'S [id number] 02/23/2018 05:48:00 11:59:00 DIS Outpatient RAYNA FARAH MD [facility] PREOP COLONOSCOPY/EGD [id number] 09/08/2017 11:10:00 23:59:59 CLS Outpatient OBINNA PRASAD MD [facility] RAD M81.0, Z00.00,Z12.31 [id number] 09/08/2017 11:10:00 017 13:21:00 DIS Outpatient JOVANA JOSEPH DO [facility] CARD M54.16 LUMBAR RADICULOPATHY [id number] 08/22/2017 12:20:00 017 23:59:59 CLS Outpatient MERRITT VALENZUELA DO [facility] RAD ADRENAL MASS E2 7.8 [id number] 07/21/2017 08:46:00 017 23:59:59 CLS Outpatient OBINNA PRASAD MD [facility] RAD Z00.00 [id number] 06/23/2017 12:30:00 017 23:59:59 CLS Preadmit RONNY BENEDICT MD, [facility] WOUNDCARE [id number] 06/14/2017 11:19:00 017 23:59:59 CLS Outpatient ECTOR DORSEY APRN [facility] WOUNDCARE [id number] 06/09/2017 09:44:00 017 23:59:59 CLS Outpatient RONNY BENEDICT MD [facility] WOUNDCARE [id number] 05/28/2017 11:53:00 017 14:18:00 DIS Emergency EMELY ESTES [facility] ER CONSTIPATION/DIARRHEA [id number] 05/17/2017 13:15:00 017 23:59:59 CLS Preadmit VERONICA LAU FACC, TERRY MILLER CCDS [facility] RAD PERIPHERAL FANNIE RIAL DISEASE I73.9 [id number] 05/11/2017 09:09:00 017 23:59:59 CLS Preadmit OBINNA PRASAD MD [facility] SLEEP HYPERSOMNIA,SNORING [id number] 11/08/2016 10:15:00 017 23:59:59 CLS Preadmit DIALLO GONZÁLES MD, [facility] PULM J44.9 [id number] 08/09/2016 10:35:00 017 00:01:00 DIS Outpatient DIALLO GONZÁLES MD [facility] PULM J44.9 [id number] 11/05/2016 08:40:00 017 09:19:00 DIS Outpatient LELE HUGHES MD [facility] CARD DISC DISORDER [id number] 09/30/2016 13:17:00 017 23:59:59 CLS Outpatient BLAKE LAU, ADINA Mullins [facility] RAD SHORTNESS OF BREATH [id number] 09/13/2016 00:00:00 02:26:00 DIS Emergency TOSHIA DUENAS DO [facility] ER SOA, COUGH [id number] 08/16/2016 13:04:00 016 14:17:00 DIS Outpatient LELE HUGHES MD [facility] CARD M51.16 [id number] 03/01/2016 13:13:00 016 23:59:59 CLS Outpatient DIALLO GONZÁLES MD [facility] RAD COPD [id number] 03/01/2016 13:08:00 016 23:59:59 CLS Outpatient OBINNA PRASAD MD [facility] RAD F/U PATCHY DENSITY ANTE RIORLY R LOBE [id number] 03/01/2016 13:01:00 016 23:59:59 CLS Outpatient VERONICA LAU FACC, TERRY MILLER CC DS [facility] CARD CHRONIC HYPONATREMIA,COPD,ADRENAL MASS,HTN [id number] 01/29/2016 06:14:00 016 15:28:00 DIS Outpatient KIM THURSTON DO [facility] PREOP POLYPS;GERD [id number] 11/17/2015 14:52:00 016 16:45:00 DIS Inpatient FABIANA BEJARANO MD [facility] 4TH PNEUMONIA AECOPD AFIB R VR [id number] 10/10/2015 11:25:00 016 12:46:00 DIS Outpatient LELE HUGHES MD [facility] CARD DISC DISORDER W/ RADICU LOPATHY LUMBAR [id number] 07/22/2015 13:27:00 015 23:59:59 CLS Outpatient MERRITT VALENZUELA DO [facility] RAD ADRENAL MASS [id number] 06/30/2015 10:18:00 015 23:59:59 CLS Outpatient OBINNA PRASAD MD [facility] RAD FOLLOW UP FOR PNEUMONIA [id number] 06/27/2015 07:22:00 015 08:21:00 DIS Outpatient LELE HUGHES MD [facility] CARD DDD LUMBAR [id number] 05/19/2015 09:34:00 13:51:00 DIS Inpatient OBINNA PRASAD MD [facility] SURGICAL PNEUMONIA [id number] 05/09/2015 07:07:00 015 07:55:00 DIS Outpatient LELE HUGHES MD [facility] CARD DDD LUMBAR [id number] 03/13/2015 10:56:00 015 23:59:59 CLS Outpatient JOVANA HULL MD [facility] RAD UNILATERAL SORE THROAT, EAR PAIN [id number] 02/25/2015 10:18:00 015 23:59:59 CLS Outpatient OBINNA PRASAD MD [facility] RAD ADRENAL MASS [id number] 02/24/2015 10:18:00 015 23:59:59 CLS Outpatient OBINNA PRASAD MD [facility] LAB HYPERTENSION,HYPOTHYROI DISM [id number] 01/17/2015 08:49:00 015 10:16:00 DIS Outpatient LELE HUGHES MD [facility] CARD DDD LUMBAR [id number] 12/31/2014 10:16:00 015 23:59:59 CLS Outpatient LELE HUGHES MD [facility] RAD LOW BACK PAIN [id number] 10/25/2014 07:33:00 08:14:00 DIS Outpatient LELE HUGHES MD [facility] CARD DDD [id number] 10/14/2014 15:18:00 23:59:59 CLS Outpatient OBINNA PRASAD MD [facility] RAD HEAD TRAUMA, ON PREDAXI A [id number] 08/18/2014 18:00:00 20:08:00 DIS Emergency MARICHUY LAU, CORNELIO Doll [facility] ER COLD COUGH [id number] 07/19/2014 07:32:00 23:59:59 CLS Outpatient LELE HUGHES MD [facility] CARD DDD LUMBAR [id number] 07/19/2014 07:30:00 23:59:59 CLS Outpatient SHAYY PEOPLES MD [facility] RAD ABDOMINAL MASS [id number] 07/01/2014 09:42:00 23:59:59 CLS Outpatient SHAYY PEOPLES MD [facility] RAD ABDOMINAL MASS [id number] 05/22/2014 08:50:00 014 14:10:00 DIS Outpatient RAYNA FARAH MD [facility] SDC COLON MASS;REFLUX [id number] 05/17/2014 07:11:00 014 08:01:00 DIS Outpatient LELE HUGHES MD [facility] CARD DDD [id number] 05/16/2014 07:21:00 23:59:59 CLS Outpatient RAYNA FARAH MD [facility] PREOP COLON MASS;REFLUX [id number] 05/08/2014 08:05:00 014 23:59:59 CLS Outpatient SHAYY PEOPLES MD [facility] RAD WEIGHT LOSS,SIADH,TOBA CCOISM,EARLY SATIETY [id number] 01/28/2014 12:13:00 014 14:04:00 DIS Outpatient LLEE HUGHES MD [facility] CARD DDD LUMBAR [id number] 11/09/2013 07:19:00 014 23:59:59 CLS Outpatient SHAYY PEOPLES MD [facility] RAD SCREENING [id number] 11/09/2013 07:09:00 014 23:59:59 CLS Outpatient LELE HUGHES MD [facility] CARD SACROILLIAC JOINT DSYFU NCTION,HIP PAIN BILATERAL [id number] 09/03/2013 12:35:00 23:59:59 CLS Outpatient LELE HUGHES MD [facility] SACROILLIAC JOINT [id number] 08/13/2013 12:29:00 23:59:59 CLS Outpatient LELE HUGHES MD [facility] CARD LUMBAR SPONDYLOSIS [id number] 07/11/2013 09:34:00 013 11:51:00 DIS Outpatient LELE HUGHES MD [facility] REHAB CERICALGIA [id number] 06/08/2013 07:43:00 23:59:59 CLS Outpatient LELE HUGHES MD [facility] CARD DEGENERATIVE DISC DISEA SE-LUMBAR [id number] 05/04/2013 08:00:00 23:59:59 CLS Outpatient LELE HUGHES MD [facility] CARD DDD LUMBAR [id number] 12/21/2019 10:00:00 P EN Preadmit OBINNA PRASAD MD [facility] RAD OROPHARYNGEAL DYSPHAGIA [id number] 12/21/2019 09:32:[address] Outpatient OBINNA PRASAD MD [facility] LAB E03.9,I10 [id number] 12/31/2014 10:16:00 Document Registration [id number] 12/31/2014 10:16:00 Document Registration [id number] 12/31/2014 10:16:00 Document Registration [id number] 12/31/2014 10:16:00 Document Registration [id number] 12/31/2014 10:16:00 Document Registration [id number] 12/31/2014 10:16:00 Document Registration [id number] 12/31/2014 10:16:00 Document Registration [id number] 12/31/2014 10:16:00 Document Registration [id number] 12/31/2014 10:16:00 Document Registration [id number] 12/31/2014 10:16:00 Document Registration [id number] 12/31/2014 10:16:00 Document Registration [id number] 12/31/2014 10:16:00 Document Registration [id number] 12/31/2014 10:15:00 Document Registration [id number] 12/31/2014 10:15:00 Document Registration [id number] 12/31/2014 10:15:00 Document Registration [id number] 12/31/2014 10:15:00 Document Registration [id number] 12/31/2014 10:15:00 Document Registration [id number] 11/10/2012 09:01:00 Document Registration [id number] 11/09/2012 08:16:00 Document Registration [id number] 10/26/2012 09:17:00 Document Registration [id number] 10/09/2012 10:13:00 Document Registration [id number] 05/22/2012 11:03:00 Document Registration [id number] 04/27/2012 13:09:00 Document Registration [id number] 04/25/2012 14:09:00 Document Registration [id number] 04/20/2012 09:59:00 Document Registration [id number] 12/17/2011 08:02:00 Document Registration [id number] 12/14/2011 08:56:00 Document Registration [id number] 12/08/2011 08:27:00 Document Registration [id number] 08/02/2011 11:42:00 Document Registration [id number] 07/01/2011 13:03:00 Document Registration [id number] 06/18/2011 11:31:00 Document Registration [id number] 06/08/2011 11:45:00 Document Registration [id number] 05/24/2011 12:37:00 Document Registration [id number] 05/24/2011 12:24:00 Document Registration [id number] 04/02/2011 09:07:00 Document Registration [id number] 03/09/2011 10:33:00 Document Registration [id number] 02/26/2011 07:33:00 Document Registration [id number] 02/23/2011 07:24:00 Document Registration [id number] 09/29/2010 08:58:00 Document Registration [id number] 09/18/2010 05:38:00 Document Registration [id number] 09/15/2010 13:07:00 Document Registration [id number] 08/25/2010 09:55:00 Document Registration [id number] 08/05/2010 08:46:00 Document Registration [id number] 07/13/2010 12:53:00 Document Registration [id number] 07/13/2010 12:41:00 Document Registration [id number] 07/07/2010 12:21:00 Document Registration [id number] 06/29/2010 08:26:00 Document Registration [id number] 06/26/2010 10:59:00 Document Registration [id number] 06/15/2010 11:31:00 Document Registration [id number] 05/26/2010 11:19:00 Document Registration [id number] 05/24/2010 11:50:00 Document Registration [id number] 05/20/2010 10:10:00 Document Registration [id number] 05/12/2010 13:46:00 Document Registration [id number] 05/11/2010 10:56:00 Document Registration [id number] 01/21/2010 10:50:00 Document Registration
--- NOTE | 2019-12-22 14:01 | ED General ---
General Chief Complaint: Abdominal/GI Problems Stated Complaint: COUGHING UP BLOOD Source of Information: Patient Exam Limitations: No Limitations History of Present Illness Date Seen by Provider: Dec 22, 2019 Time Seen by Provider: 13:31 Initial Comments Here with report of coughing up blood today. She did spit up about a half a cup of blood. She does have history throat cancer on the second go around that does want to do chemotherapy on. She did have a PEG tube placed yesterday. She has had difficulty with pain control over the last several weeks and was seen by me previously for that. That apparently is better. She is not currently vomiting blood. States that seems to have stopped. She does have pain in her throat. She has not been eating or drinking well due to her cancer and recent procedures. I did discuss with her regarding resuscitation status. She is adamant that she does not want to be resuscitated although her son had called prior to patient's arrival and wants her resuscitated. I did discuss this with the patient and asked her again and she states that she does not want to be resuscitated and she does not want tracheostomy. Timing/Duration: 1 Hour, Changing Over Time, Other (better now) Severity: Moderate Associated Systoms: No Chest Pain, No Cough, No Fever/Chills; Nausea/Vomiting, Shortness of Air, Weakness Allergies and Home Medications Allergies Coded Allergies: hydrocodone (Verified Allergy, Mild, Pt has received Morphine in the past, 07/27/19) warfarin (Verified Adverse Reaction, Intermediate, BLISTERS, 06/28/18) Home Medications Acetaminophen 325 Mg Tablet, 650 MG PO Q6H PRN for PAIN-MILD, (Reported) Albuterol Sulfate 2.5 Mg/3 Ml Vial.neb, 2.5 MG NEB Q4H PRN for SHORTNESS OF BREATH, (Reported) Albuterol Sulfate 18 Gm Hfa.aer.ad, 2 PUFF INH Q4H PRN for SHORTNESS OF BREATH, (Reported) Aspirin 81 Mg Tablet.dr, 81 MG PO Q48H, (Reported) Budesonide/Formoterol Fumarate 10.2 Gm Hfa.aer.ad, 2 PUFF INH BID, (Reported) Cholecalciferol (Vitamin D3) 2,000 Unit Tab.chew, 2,000 UNIT PO DAILY, (Reported) Dabigatran Etexilate Mesylate 150 Mg Capsule, 150 MG PO BID, (Reported) Doxazosin Mesylate 2 Mg Tablet, 2 MG PO HS, (Reported) Duloxetine HCl 60 Mg Capsule.dr, 60 MG PO BID, (Reported) Fluticasone Propionate 16 Gm Buna.susp, 1 SPRAY NS DAILY, (Reported) Furosemide 20 Mg Tablet, 20 MG PO DAILY, (Reported) Levothyroxine Sodium 75 Mcg Tablet, 75 MCG PO DAILY, (Reported) Loratadine 10 Mg Tablet, 10 MG PO DAILY, (Reported) Methocarbamol 750 Mg Tablet, 750 MG PO TID, (Reported) Metoprolol Succinate 200 Mg Tab.er.24h, 200 MG PO DAILY, (Reported) Mirtazapine 30 Mg Tablet, 30 MG PO HS, (Reported) Morphine Sulfate 30 Mg Tablet.er, 30 MG PO Q12HR Prescribed by: JARED HERNANDEZ on 10/25/19 1216 Multivitamin 1 Each Tablet, 1 TAB PO 1200, (Reported) Omeprazole 40 Mg Capsule.dr, 40 MG PO DAILY, (Reported) Polyethylene Glycol 3350 238 Gm Powder, 17 GM PO DAILY PRN for CONSTIPATION-2ND LINE, (Reported) Umeclidinium [place] 62.5 Mcg Blst.w.dev, 1 PUFF IH DAILY, (Reported) Vitamin B Complex 1 Each Tablet, 1 TAB PO 1200 PRN for FEELING TIRED, (Reported) Zoledronate 5 Mg/100 Ml Btl, 5 MG IV YEARLY, (Reported) Patient Home Medication List Home Medication List Reviewed: Yes Review of Systems Review of Systems Constitutional: No chills, No fever; weakness EENTM: throat pain; No mouth pain, No nose congestion Respiratory: dyspnea on exertion, short of breath, wheezing Cardiovascular: No chest pain, No edema Gastrointestinal: abdominal pain, nausea, vomiting Genitourinary: no symptoms reported Musculoskeletal: no symptoms reported Skin: no symptoms reported All Other Systems Reviewed Negative Unless Noted: Yes Past Zskwmeg-Ttsidm-Azndzl Hx Past Med/Social Hx: Reviewed Nursing Past Med/Soc Hx Patient Social History Alcohol Use: Denies Use Recreational Drug Use: No Smoking Status: Former Smoker Type Used: Cigarettes 2nd Hand Smoke Exposure: Yes Recent Hopitalizations: No Immunizations Up To Date Tetanus Booster (TDap): Unknown Date of Pneumonia Vaccine: Jun 23, 2015 Date of Influenza Vaccine: Jun 01, 2019 Seasonal Allergies Seasonal Allergies: Yes Past Medical History Surgeries: Yes (ULCER SURG) Abdominal, Gallbladder Respiratory: Yes (O2 2L CONTINUOS) Pneumonia, Chronic Bronchitis, COPD, Emphysema Currently Using CPAP: No Currently Using BIPAP: No Cardiac: Yes Atrial Fibrillation, Chronic Edema/Swelling, Coronary Artery Disease, Hypertension Neurological: No Reproductive Disorders: No Female Reproductive Disorders: Denies Sexually Transmitted Disease: No HIV/AIDS: No Genitourinary: No Gastrointestinal: Yes (HX BLOOD IN STOOLS) Gastroesophageal Reflux, Noguera's Esophagus, Chronic Constipation, Polyps, Ulcer Musculoskeletal: Yes Degenerate Disk Disease, Arthritis, Chronic Back Pain Endocrine: Yes Hypothyroidsim HEENT: No Loss of Vision: Bilateral Hearing Impairment: Denies Cancer: Yes (throat) Esophageal Did You Recieve Any Treatments: Yes What Type of Treatment Did You: Chemotherapy, Radiation Psychosocial: Yes Anxiety Integumentary: No Blood Disorders: Yes (anemia) Adverse Reaction/Blood Tranf: No (N/A) Family Medical History Reviewed Nursing Family Hx Arthritis 19 FATHER 19 MOTHER Cardiovascular disease 19 FATHER Diabetes mellitus 19 FATHER No Pertinent Family Hx Physical Exam Vital Signs Vital Signs - First Documented 12/22/19 13:32 Temp 36.8 Pulse 86 Resp 18 B/P (MAP) 146/89 (108) Pulse Ox 93 O2 Delivery Nasal Cannula O2 Flow Rate 3.00 Capillary Refill : Height, Weight, BMI Height: 5'3.00" Weight: 143lbs. 9.0oz. 65.761835bj; 21.17 BMI Method:Stated General Appearance: No Apparent Distress, Chronically ill, Thin HEENT: PERRL/EOMI, Other (all blood in the mouth but does not have bleeding. Throat fullness noted and patient has throat cancer and indicates this is the area of her cancer.) Neck: Full Range of Motion, Supple, Other (fullness in the mid neck anterior region consistent with area of cancer.) Respiratory: Crackles, Wheezing (moderate scattered wheezes) Cardiovascular: No Murmur, Irregularly Irregular Gastrointestinal: Soft, Other (PEG tube left upper quadrant without bleeding from stoma or significant surrounding erythema or foul-smelling discharge.) Back: Normal Inspection, No CVA Tenderness, No Vertebral Tenderness Extremity: Non Tender, No Calf Tenderness, Other (Globally weak) Neurologic/Psychiatric: Alert, Oriented x3, Motor Weakness (globally) Skin: Normal Color, Pallor Focused Exam Lactate Level 12/22/19 14:42: Lactic Acid Level 0.84 Lactic Acid Level Laboratory Tests Test 12/22/19 14:42 Lactic Acid Level 0.84 MMOL/L (0.50-2.00) Progress/Results/Core Measures Suspected Sepsis SIRS Temperature: Pulse: Respiratory Rate: Laboratory Tests 12/22/19 13:44: White Blood Count 14.3H Blood Pressure / Mean: 12/22/19 14:42: Lactic Acid Level 0.84 Laboratory Tests 12/22/19 13:44: Creatinine 0.57L, INR Comment 0.9, Platelet Count 823H, Total Bilirubin 0.3 Results/Orders Lab Results Laboratory Tests Test 12/22/19 13:44 12/22/19 14:42 Range/Units White Blood Count 14.3 H 4.3-11.0 10^3/uL Red Blood Count 3.06 L 4.35-5.85 10^6/uL Hemoglobin 9.2 L 11.5-16.0 G/DL Hematocrit 28 L 35-52 % Mean Corpuscular Volume 91 80-99 FL Mean Corpuscular Hemoglobin 30 25-34 PG Mean Corpuscular Hemoglobin Concent 33 32-36 G/DL Red Cell Distribution Width 15.7 H 10.0-14.5 % Platelet Count 823 H 130-400 10^3/uL Mean Platelet Volume 7.9 7.4-10.4 FL Neutrophils (%) (Auto) 82 H 42-75 % Lymphocytes (%) (Auto) 10 L 12-44 % Monocytes (%) (Auto) 7 0-12 % Eosinophils (%) (Auto) 1 0-10 % Basophils (%) (Auto) 0 0-10 % Neutrophils # (Auto) 11.8 H 1.8-7.8 X 10^3 Lymphocytes # (Auto) 1.4 1.0-4.0 X 10^3 Monocytes # (Auto) 1.0 0.0-1.0 X 10^3 Eosinophils # (Auto) 0.1 0.0-0.3 10^3/uL Basophils # (Auto) 0.0 0.0-0.1 10^3/uL Neutrophils % (Manual) 85 % Lymphocytes % (Manual) 9 % Monocytes % (Manual) 6 % Platelet Estimate INCREASED Clumped Platelets RARE Hypochromasia SLIGHT Poikilocytosis SLIGHT Anisocytosis SLIGHT Macrocytosis SLIGHT Prothrombin Time 12.6 12.2-14.7 SEC INR Comment 0.9 0.8-1.4 Activated Partial Thromboplast Time 34 24-35 SEC Sodium Level 130 L 135-145 MMOL/L Potassium Level 4.1 3.6-5.0 MMOL/L Chloride Level 96 L 98-107 MMOL/L Carbon Dioxide Level 23 21-32 MMOL/L Anion Gap 11 5-14 MMOL/L Blood Urea Nitrogen 6 L 7-18 MG/DL Creatinine 0.57 L 0.60-1.30 MG/DL Estimat Glomerular Filtration Rate > 60 BUN/Creatinine Ratio 11 Glucose Level 110 H 70-105 MG/DL Calcium Level 7.8 L 8.5-10.1 MG/DL Corrected Calcium 8.9 8.5-10.1 MG/DL Total Bilirubin 0.3 0.1-1.0 MG/DL Aspartate Amino Transf (AST/SGOT) 16 5-34 U/L Alanine Aminotransferase (ALT/SGPT) 11 0-55 U/L Alkaline Phosphatase 205 H 40-136 U/L C-Reactive Protein High Sensitivity 21.78 H 0.00-0.50 MG/DL Total Protein 5.3 L 6.4-8.2 GM/DL Albumin 2.6 L 3.2-4.5 GM/DL Lactic Acid Level 0.84 0.50-2.00 MMOL/L My Orders Orders - KYLER SETH MD Cbc With Automated Diff (12/22/19 13:38) Comprehensive Metabolic Panel (12/22/19 13:38) Hs C Reactive Protein (12/22/19 13:38) Chest 1 View, Ap/Pa Only (12/22/19 13:38) Ed Iv/Invasive Line Start (12/22/19 13:38) Ns Iv 500 Ml (Sodium Chloride 0.9%) (12/22/19 13:38) Manual Differential (12/22/19 13:44) Blood Culture (12/22/19 14:26) Sputum Culture (12/22/19 14:26) Urinalysis (12/22/19 14:26) Urine Culture (12/22/19 14:26) Protime With Inr (12/22/19 14:26) Partial Thromboplastin Time (12/22/19 14:26) Vital Signs Adult Sepsis Patie Q15M (12/22/19 14:26) O2 (12/22/19 14:26) Remove Rings In Anticipation O (12/22/19 14:26) Lactic Acid Analyzer (12/22/19 14:26) Lactated Ringers (Lr 1000 Ml Iv Solution (12/22/19 14:36) Fentanyl Injection (Sublimaze Injection (12/22/19 14:36) Iohexol Injection (Omnipaque 350 Mg/Ml 1 (12/22/19 14:45) Received Contrast (Hold Metformin- Contr (12/22/19 14:45) Sodium Chloride Flush (Catheter Flush Sy (12/22/19 14:45) Ns (Ivpb) (Sodium Chloride 0.9% Ivpb Bag (12/22/19 14:45) Ct Chest/Abdomen/Pelvis W (12/22/19 14:46) Cefepime Injection (Maxipime Injection) (12/22/19 15:29) Cefepime Injection (Maxipime Injection) (12/22/19 15:37) Water (Sterile) For Injection (Sterile W (12/22/19 15:36) Medications Given in ED Current Medications Medications Dose Ordered Sig/Astrid Route Start Time Stop Time Status Last Admin Dose Admin Iohexol 100 ml ONCE ONCE IV 12/22/19 14:45 12/22/19 14:46 DC 12/22/19 15:05 66 ML Lactated Ringer's 1,000 ml @ 0 mls/hr Q0M ONCE IV 12/22/19 14:36 12/22/19 14:38 DC 12/22/19 14:51 1,000 MLS/HR Sodium Chloride 10 ml NEEDED PRN IV 12/22/19 14:45 12/22/19 15:05 10 ML Sodium Chloride 100 ml ONCE ONCE IV 12/22/19 14:45 12/22/19 14:46 DC 12/22/19 15:05 80 ML Sodium Chloride 500 ml @ 0 mls/hr Q0M ONCE IV 12/22/19 13:38 12/22/19 13:39 DC 12/22/19 13:58 500 MLS/HR Vital Signs/I&O 12/22/19 13:32 Temp 36.8 Pulse 86 Resp 18 B/P (MAP) 146/89 (108) Pulse Ox 93 O2 Delivery Nasal Cannula O2 Flow Rate 3.00 Capillary Refill : Progress Note : Progress Note Seen and evaluated. IV by EMS. Second IV initiated. Labs and chest x-ray ordered. Normal saline 500 mL bolus. Monitor patient. Fentanyl [address] in [address] abdomen and pelvis ordered. 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 Also has consolidation in the left base that is pneumonia or tumor and multiple spots on the right. We will go ahead and initiate treatment for pneumo norah given her current labs and findings. Cefepime 2 g IV initiated. I did have an open and honest conversation with the patient regarding her current care. She began reiterates that she does not want to be resuscitated and she is interested in hospice care. I think this is in the patient's best interest and she states that she just wants to be comfortable at this point. I will place a palliative care consult. I did discuss the case with Dr. Pickett, on-call for Dr. Prasad of [facility]. She accepts patient for admission, inpatient status. I did discuss with Dr. Pickett regarding the DO NOT RESUSCITATE status and hospice consideration. At this point we will put the patient in the hospital and keep her comfortable with morphine sulfate ER 30 mg twice a day with when necessary morphine 4 mg IV every 2 hours. We will continue gentle fluids and diet as tolerated. Admit, inpatient status. Patient agrees with plan. Did talk with the son and informed him of the metastatic cancer concerns and Admission. Diagnostic Imaging Diagonstic Imaging: Xray Plain Films/CT/US/NM/MRI: chest Comments NAME: CHAS DRAPER [facility] REC#: [id number] PT STATUS: REG ER : 1945 PHYSICIAN: KYLER SETH MD ADMIT DATE: 12/22/19/ER Draft Date of Exam:12/22/19 CHEST 1 VIEW, AP/PA ONLY Indication: Abdominal pain, bleeding from feeding tube entry site. Comparison: 10/24/2019. Discussion: Single portable upright view of the chest was obtained. Cardiomegaly is stable. New 3 cm rounded focus of consolidation within the left midlung, likely pneumonia though indeterminate. Recommend follow-up to resolution. Small left pleural effusion is new. The right lung is well-aerated. No pneumothorax. No free air under either hemidiaphragm. Impression: 1. New small left pleural effusion. 2. Rounded focal consolidation within the left midlung, likely pneumonia. Recommend follow-up to resolution. Dictated on workstation # [id number] Dict: 12/22/19 1420 Trans: 12/22/19 1424 [facility] [id number] Interpreted by: ROSALIO ANDREWS MD Electronically signed by: [facility]: CT Plain Films/CT/US/NM/MRI: chest, abdomen, pelvis Comments [facility] [place], [place] NAME: CHAS DRAPER [facility] REC#: [id number] PT STATUS: REG ER : 1945 PHYSICIAN: KYLER SETH MD ADMIT DATE: 12/22/19/ER Draft Date of Exam:12/22/19 CT CHEST/ABDOMEN/PELVIS W Procedure: CT chest, abdomen, and pelvis with contrast. Technique: Multiple contiguous axial images were obtained through the chest, abdomen, and pelvis after the administration of intravenous contrast. Auto Exposure Controls were utilized during the CT exam to meet ALARA standards for radiation dose reduction. Indication: Abdominal pain, bleeding from gastrostomy tube entry site, hemoptysis. History of squamous cell carcinoma of the glottis. Comparison: CT of the abdomen 08/22/[address] of the chest 03/01/2016. Discussion: CT chest: Emphysema is again noted. There is a spiculated solid 2.7 cm mass within the left upper lobe which is new, highly concerning for malignancy. There is dense consolidation within the left lower lobe which could represent mass or consolidated infection with developing necrosis. Subcentimeter nodules are noted within the right lung, malignant versus infectious. Mild cardiomegaly is noted. No pleural or pericardial fluid. Thoracic aorta is normal in caliber and configuration. No pathologically enlarged lymph node is identified. Pulmonary arteries are dilated suggesting pulmonary artery hypertension. CT abdomen: Gastrostomy tube appears to be in good position with the retention mushroom seated against the gastric wall. There is no fluid within the body wall in this region. Gas-filled colon. The gallbladder is surgically absent. The liver, pancreas, spleen and adrenal glands are unremarkable. There is severe atrophy of the right kidney. The left kidney is unremarkable. No hydronephrosis. The aorta contains severe atherosclerotic plaque. No ascites. No adenopathy. The uterus and urinary bladder are unremarkable. No acute osseous abnormality. Chronic appearing compression deformity at T12 with no retropulsion. Impression: 1. 2.7 cm solid mass within the left upper lobe which is highly concerning for malignancy. 2. There is solid appearing consolidation within the left lower lobe medially which could represent severe pneumonia with possible developing necrosis or an additional large mass. Additional subcentimeter nodularity is noted throughout the right lung which again could represent malignancy or focal areas of infection. 3. Gastrostomy tube is in good position. 4. Additional chronic change as discussed. 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 Referrals: OBINNA PRASAD MD (PCP/Family) Primary Care Physician KYLER SETH MD Dec 22, 2019 14:01
[2019-12-22 14:11] LABS: ALBUMIN 2.6 GM/DL (3.2-4.5); CHLORIDE 96 MMOL/L (98-107); POTASSIUM 4.1 MMOL/L (3.6-5.0); SODIUM 130 MMOL/L (135-145)
[2019-12-22 14:13] LABS: CALCIUM 7.8 MG/DL (8.5-10.1)
[2019-12-22 14:14] LABS: GLUCOSE 110 MG/DL (70-105); TOTAL PROTEIN 5.3 GM/DL (6.4-8.2)
[2019-12-22 14:15] LABS: CARBON DIOXIDE 23 MMOL/L (21-32)
[2019-12-22 14:16] LABS: BILIRUBIN,TOTAL 0.3 MG/DL (0.1-1.0)
[2019-12-22 14:17] LABS: ALKALINE PHOSPHATASE 205 U/L (40-136)
[2019-12-22 14:18] LABS: CREATININE SERUM 0.57 MG/DL (0.60-1.30); GFR ESTIMATED > 60
[2019-12-22 14:19] LABS: BUN/CREATININE RATIO 11
--- NOTE | 2019-12-22 14:19 | NUR ---
SON ERIKA CALLED TO CHECK ON HIS MOTHER VOICED THAT HE COULD NOT TAKE CARE OF HER AND DID NOT WANT HER TO COME HOME.
[2019-12-22 14:20] LABS: ALANINE AMINOTRANSFERASE 11 U/L (0-55)
--- NOTE | 2019-12-22 14:24 | Diagnostic Imaging Report ---
Indication: Abdominal pain, bleeding from feeding tube entry site. Comparison: 10/24/2019. Discussion: Single portable upright view of the chest was obtained. Cardiomegaly is stable. New 3 cm rounded focus of consolidation within the left midlung, likely pneumonia though indeterminate. Recommend follow-up to resolution. Small left pleural effusion is new. The right lung is well-aerated. No pneumothorax. No free air under either hemidiaphragm. Impression: 1. New small left pleural effusion. 2. Rounded focal consolidation within the left midlung, likely pneumonia. Recommend follow-up to resolution. Dictated by: Dictated on workstation # [id number]
[2019-12-22 14:27] LABS: LYMPHOCYTES % (MANUAL) 9 %; MONOCYTES % (MANUAL) 6 %; NEUTROPHILS % (MANUAL) 85 %; PLATELET CLUMPS RARE; PLATELET ESTIMATE INCREASED
[2019-12-22 14:28] LABS: ANISOCYTOSIS SLIGHT; HYPOCHROMASIA SLIGHT; POIKILOCYTOSIS SLIGHT
[2019-12-22] MEDS ORDERED: fentaNYL INJECTION 100 MCG/2 ML AMP IVP STA (14:36)
[2019-12-22] MEDS ORDERED: LACTATED RINGERS 1,000 ML IV ONE (14:36)
[2019-12-22 14:43] LABS: INR 0.9 (0.8-1.4); PROTHROMBIN TIME PATIENT 12.6 SEC (12.2-14.7)
[2019-12-22] MEDS ORDERED: NS 100 ML (IVPB) BAG IV ONE (14:45)
[2019-12-22] MEDS ORDERED: HOLD METFORMIN - RECEIVED CONTRAST 20 ML VIAL IV SCH (14:45)
[2019-12-22] MEDS ORDERED: IOHEXOL 350 MG/ML 100 ML (OMNIPAQUE 350) VIAL IV ONE (14:45)
[2019-12-22] MEDS: CATHETER FLUSH 10 ML SYR IV PRN ×2 (15:05→17:13)
[2019-12-22] MEDS ORDERED: CEFEPIME 2 GM (MAXIPIME) VIAL ONE (15:29)
--- NOTE | 2019-12-22 15:31 | NUR ---
CALLED SON AT [phone] AND GAVE HIM UP DATE DISCUSSED THAT HAS AREA OF CONCERN IN LUNG.
--- NOTE | 2019-12-22 15:31 | Diagnostic Imaging Report ---
Procedure: CT chest, abdomen, and pelvis with contrast. Technique: Multiple contiguous axial images were obtained through the chest, abdomen, and pelvis after the administration of intravenous contrast. Auto Exposure Controls were utilized during the CT exam to meet ALARA standards for radiation dose reduction. Indication: Abdominal pain, bleeding from gastrostomy tube entry site, hemoptysis. History of squamous cell carcinoma of the glottis. Comparison: CT of the abdomen 08/22/[address] of the chest 03/01/2016. Discussion: CT chest: Emphysema is again noted. There is a spiculated solid 2.7 cm mass within the left upper lobe which is new, highly concerning for malignancy. There is dense consolidation within the left lower lobe which could represent mass or consolidated infection with developing necrosis. Subcentimeter nodules are noted within the right lung, malignant versus infectious. Mild cardiomegaly is noted. No pleural or pericardial fluid. Thoracic aorta is normal in caliber and configuration. No pathologically enlarged lymph node is identified. Pulmonary arteries are dilated suggesting pulmonary artery hypertension. CT abdomen: Gastrostomy tube appears to be in good position with the retention mushroom seated against the gastric wall. There is no fluid within the body wall in this region. Gas-filled colon. The gallbladder is surgically absent. The liver, pancreas, spleen and adrenal glands are unremarkable. There is severe atrophy of the right kidney. The left kidney is unremarkable. No hydronephrosis. The aorta contains severe atherosclerotic plaque. No ascites. No adenopathy. The uterus and urinary bladder are unremarkable. No acute osseous abnormality. Chronic appearing compression deformity at T12 with no retropulsion. Impression: 1. 2.7 cm solid mass within the left upper lobe which is highly concerning for malignancy. 2. There is solid appearing consolidation within the left lower lobe medially which could represent severe pneumonia with possible developing necrosis or an additional large mass. Additional subcentimeter nodularity is noted throughout the right lung which again could represent malignancy or focal areas of infection. 3. Gastrostomy tube is in good position. 4. Additional chronic change as discussed. Dictated by: Dictated on workstation # [id number]
[2019-12-22] MEDS ORDERED: WATER (STERILE) FOR INJECTION 20 ML ONE (15:36)
[2019-12-22] MEDS ORDERED: CEFEPIME INJECTION 2,000 MG in WATER (STERILE) FOR INJECTION 20 ML IV STA (15:37)
--- OUTSIDE RECORDS SUMMARY | 2019-12-22 15:51 | XMS REPORT | Encounter Summary ---
Author Author [facility] Organization [facility] Address Unknown Phone Unavailable Care Team Providers Care Tassel Maker Name Role Phone Eunice Vidal MD PCP Reason for Visit * Reason Comments Surgery Encounter Details Care Team Description Date Type Department Reny Vaca RN Surgery 12/11/2019 Telephone [facility] [address] [place] [address] Social History Date Tobacco Use [...]
--- OUTSIDE RECORDS SUMMARY | 2019-12-22 15:51 | XMS REPORT | Clinical Summary ---
Author Author [facility] Organization [facility] Address Unknown Phone Unavailable Care Team Providers Care Button Cutter Name Role Phone Eunice Vidal MD PCP Source Comments Some departments are not documenting in the electronic medical record. If you d o not see the information that you expected, contact Release of Information in located within [facility] [employer] Information Management department at [phone] for further assistan froy in locating additional records.[facility] Allergies Comments Active Allergy Reactions Severity [...] Only Otolaryngology Eunice Vidal MD Sullivan, Jessica, MA,[facility]BLOCK CUTTER ERRONEOUS ENCOUNTER--DISREGARD (Primary Dx) 10/31/2019 Clinical Otolaryngology [...] Comments Vital Sign 140/85 11/07/2019 7:22 AM FACILITIES LOCATOR Blood Pressure 85 11/07/2019 7:22 AM FACILITIES LOCATOR Pulse 36.6 C (97.8 F) 11/07/2019 7:22 AM FACILITIES LOCATOR Temperature - - Respiratory Rate 96% 11/07/2019 7:22 AM FACILITIES LOCATOR Oxygen Saturation - - Inhaled Oxygen Concentration 54 kg (119 lb) 11/07/2019 7:22 AM FACILITIES LOCATOR Weight 160 cm (5' 3") 11/07/2019 7:22 AM FACILITIES LOCATOR Height 21.08 11/07/2019 7:22 AM FACILITIES LOCATOR Body Mass Index Plan of Treatment Health [...] Larynx cancer (HCC) METABOLIC PANEL 8:39 AM FACILITIES LOCATOR HC CBC,AUTOMATED Routine 11/07/2019 Larynx cancer (HCC) 8:39 AM FACILITIES LOCATOR ECG-SCAN 11/07/2019 12:[address] NECK EXTERNAL IMAGING Routine 10/12/2019 12:00 AM FACILITIES LOCATOR from Last 3 Months Results * CBC (11/07/2019 8:39 AM FACILITIES LOCATOR) White Blood 7.7 4.5 - 11.0 K/UL [...] MAIN LAB Specimen Blood Performing Organization Address City/[facility] Ph one Number [facility] [address] [place] [address] * COMPREHENSIVE METABOLIC PANEL (11/07/2019 8:39 AM FACILITIES LOCATOR) Sodium 130 (L) 137 - 147 MMOL/L [...] >60 >60 mL/min [facility] Comment: [place] The eGFR is not validated f or use in drug dosing adjustments. Continue to use estimated creatinine clearance per dosing reference text. Please contact the Clinical Pharmacist for questions. eGFR >60 >60 mL/min [facility] [place] Comment: The eGFR is not validated for use in drug dosing adjustments. Continue to use estimated creatinine clearance per dosing reference text. Please contact the Clinical Pharmacist for questions. Specimen Blood Performing Organization Address City/[facility]/Zipcode Ph one Number MAIN LAB [address] [place] [address] * ECG-SCAN (11/07/2019 12:00 AM FACILITIES LOCATOR) Narrative Performed At This result has an attachment that is n ot available. Ordered by an unspecified provider. * CT NECK EXTERNAL IMAGING (10/12/2019 12:00 AM FACILITIES LOCATOR) Specimen Narrative Performed At This order has been auto finalized and does not contain a result. from Last 3 Months Insurance Type Payer Benefit Subscriber ID Effective Phone Address Plan / Dates Group Medicare AETNA MEDICARE AETNA xxxxxxxxxxxx 2019-P MEDICARE resent PPO Medicaid [facility] MEDICAID [place] [facility] xxxxxxxxxxx 2019-P COMMUNITY resent PLAN [place] Advance Directives Patient Chain Sales Consultant Explanation Type Date Recorded Advance Directive/DPOA
--- OUTSIDE RECORDS SUMMARY | 2019-12-22 15:52 | XMS REPORT | Encounter Summary ---
Author Author [facility] Organization [facility] Address Unknown Phone Unavailable Care Team Providers Care Tobacco Flavorer Name Role Phone Eunice Vidal MD PCP Encounter Details Care Team Description Date Type Department Naman Mir MD [address] Ortho/Med Pavilion L[address] [place], [place] [id number] Cancer of larynx (HCC) (Primary Dx) 11/13/2019 Prep for Case [facility] [address] [place] [phone] Social History Date Tobacco Use Types Packs/Day [...]
--- OUTSIDE RECORDS SUMMARY | 2019-12-22 15:52 | XMS REPORT | Encounter Summary ---
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
--- OUTSIDE RECORDS SUMMARY | 2019-12-22 15:52 | XMS REPORT | Encounter Summary ---
Author Author [facility] Organization [facility] Address Unknown Phone Unavailable Care Team Providers Care Health Club Attendant Name Role Phone Eunice Vidal MD PCP Encounter Details Care Team Description Date Type Department Naman Mri MD [address] Ortho/Med Pavilion L[address] [place], [place] [phone] Atrial fibrillation, unspecified type (H CC) (Primary Dx); Larynx cancer (HCC) 11/07/2019 Ancillary [facility] [address] [place], [place] [id number] Anesthesia Record Responsible Anesthesiologist Anesthesia Start Time [...] Comments Vital Sign 140/85 11/07/2019 7:22 AM ENVIRONMENTAL PROTECTION FORESTER Blood Pressure 85 11/07/2019 7:22 AM ENVIRONMENTAL PROTECTION FORESTER Pulse 36.6 C (97.8 F) 11/07/2019 7:22 AM ENVIRONMENTAL PROTECTION FORESTER Temperature - - Respiratory Rate 96% 11/07/2019 7:22 AM ENVIRONMENTAL PROTECTION FORESTER Oxygen Saturation - - Inhaled Oxygen Concentration 54 kg (119 lb) 11/07/2019 7:22 AM ENVIRONMENTAL PROTECTION FORESTER Weight 160 cm (5' 3") 11/07/2019 7:22 AM ENVIRONMENTAL PROTECTION FORESTER Height 21.08 11/07/2019 7:22 AM ENVIRONMENTAL PROTECTION FORESTER Body Mass Index documented in this encounter [...] Liv Cazares RN - 11/07/2019 7:30 AM ENVIRONMENTAL PROTECTION FORESTER GENERAL INFORMATION Before you come to the [...] and any other valuables at home. The [facility] is not responsible for the loss or breakage of persona l items. Remove nail occitan, makeup and all jewelry (including piercings) before comin g to the hospital. The morning of your procedure: brush your teeth and tongue do not smoke do not shave the area where you will have surgery What to bring to the hospital ID/ Insurance Card Source Water Protection Specialist card Official documents for legal guardianship Copy [...] not receive a c all, please call [phone] before 4:30pm or [phone] after 4:30pm. Notify us at [facility]: if you need to cancel your procedure if you are going to be late [facility] [address] [place] [address] ? Park in the P5 parking garage located at [address] [address]. ? Photo Retoucher parking is available in front of [facility] [employer] [facility] between the hours of 7:00 am and 4:00 pm Tuesday through Tuesday. ? If parking in the P5 garage, take the east elevators in the parking garage to the second level and walk to the entrance of the [facility] [employer]. ? Enter through the 1st floor main entrance and check in with Information Desk. ? RONMENTAL PROTECTION FORESTER * Pre-Anesthesia Medication Instructions* Radha Vaca PHARMD - 11/07/2019 7:30 AM ENVIRONMENTAL PROTECTION FORESTER YOUR MEDICATION LIST albuterol 0.083% (PROVENTIL) 2.5 [...] or medication questions before surgery. ? E-mail: [email or web address] ? Before going home from the hospital, please ask your doctor when you should re-s tart any medicine that was stopped for surgery. RONMENTAL PROTECTION FORESTER documented in this encounter Progress Notes * Lynn Cheney PHARMD - 11/07/2019 7:30 AM ENVIRONMENTAL PROTECTION FORESTER PAC Anticoagulant Plan Note: Gracie Sloan was [...] they verbalize d understanding. Lynn Cheney PHARMD RONMENTAL PROTECTION FORESTER documented in this encounter Plan of Treatment Order Schedule Name Type Priority Associated Diag noses Ordered: 11/07/2019 ECG 12-LEAD ECG Routine Atrial fibrilla tion, unspecified type (HCC) documented as of this encounter Procedures Comments Procedure Name Priority Date/Time Associated Diag nosis HC CBC,AUTOMATED Routine 11/07/2019 Larynx cancer (HCC) 8:39 AM ENVIRONMENTAL PROTECTION FORESTER HC COMPREHENSIVE Routine 11/07/2019 Larynx cancer (HCC) METABOLIC PANEL 8:39 AM ENVIRONMENTAL PROTECTION FORESTER ECG-SCAN 11/07/2019 12:00 AM ENVIRONMENTAL PROTECTION FORESTER documented in this encounter Results * COMPREHENSIVE METABOLIC PANEL (11/07/2019 8:39 AM ENVIRONMENTAL PROTECTION FORESTER) Sodium 130 (L) 137 - 147 MMOL/L [...] >60 >60 mL/min [facility] Comment: [place] The eGFR is not validated f or use in drug dosing adjustments. Continue to use estimated creatinine clearance per dosing reference text. Please contact the Clinical Pharmacist for questions. eGFR >60 >60 mL/min [facility] [place]ese Comment: The eGFR is not validated for use in drug dosing adjustments. Continue to use estimated creatinine clearance per dosing reference text. Please contact the Clinical Pharmacist for questions. Specimen Blood Performing Organization Address City/State/Zipcode Ph one Number MAIN LAB [address] [place] [address] * CBC (11/07/2019 8:39 AM ENVIRONMENTAL PROTECTION FORESTER) White Blood 7.7 4.5 - 11.0 K/UL [...] MAIN LAB Specimen Blood Performing Organization Address [facility] Ph one Number MAIN LAB [address] [place] [address] * ECG-SCAN (11/07/2019 12:00 AM ENVIRONMENTAL PROTECTION FORESTER) Narrative Performed At This result has an attachment that is n ot available. Ordered by an unspecified provider. 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
--- OUTSIDE RECORDS SUMMARY | 2019-12-22 15:52 | XMS REPORT | Encounter Summary ---
Author Author [facility] Organization [facility] Address Unknown Phone Unavailable Care Team Providers Care Dye Penetrant Testing Technician Name Role Phone Eunice Vidal MD PCP Encounter Details Care Team Description Date Type Department Reny Vaca RN 11/08/2019 Documentation [facility] [address] [place] [address] Social History Date Tobacco Use [...] Reny Vaca RN - 11/08/2019 2:10 PM KENO CLERK Prior authorization for [employer] for PET scan scheduled on 11/12/[address], [place] initiated with case # [id number] and clinicals faxed to . CLERK documented in this encounter Plan of Treatment Not on filedocumented as of this encounter Visit Diagnoses Not on filedocumented in this encounter
--- OUTSIDE RECORDS SUMMARY | 2019-12-22 15:52 | XMS REPORT | Encounter Summary ---
Author Author [facility] Organization [facility] Address Unknown Phone Unavailable Care Team Providers Care Reverberatory Furnace Supervisor Name Role Phone Eunice Vidal MD PCP Reason for Visit * Reason Comments Surgery Encounter Details Care Team Description Date Type Department Reny Vaca RN Surgery 12/10/2019 Telephone [facility] [address] [place] [address] Social History Date Tobacco Use [...]
--- OUTSIDE RECORDS SUMMARY | 2019-12-22 15:52 | XMS REPORT | Encounter Summary ---
Author Author [facility] Organization [facility] Address Unknown Phone Unavailable Care Team Providers Care Development Technical Lead Name Role Phone PCP Unavailable Reason for Visit * Reason Comments Navigation Assessment Encounter Details Care Team Description Date Type Department Evie Hendricks RN Navigation Assessment 10/25/2019 Telephone [facility] [address] [address] Social History Date Tobacco Use Types Packs/Day Years Used Never Assessed Sex Assigned at Date Recorded Not on file Industry Job Start Date Occupation Not on file Not on file Not on file Travel End Travel History Travel Start No recent travel history available. documented as of this encounter Miscellaneous Notes * Telephone Encounter - Evie Hendricks RN - 10/25/2019 1:10 PM ASSOCIATE PROFESSOR OF THEATRE Navigation Intake Assessment Document Patient Name: Gracie Sloan : 1945 Insurance: [facility] Appointment Info: Future Appointments Date Time Provider Department Center 10/26/2019 1:00 PM [facility] & Reason for [...] the right hyoid and thyroid cartilage. Comments: CIATE PROFESSOR OF THEATRE documented in this encounter Plan of Treatment Not on filedocumented as of this encounter Visit Diagnoses Not on filedocumented in this encounter
--- OUTSIDE RECORDS SUMMARY | 2019-12-22 15:52 | XMS REPORT | Encounter Summary ---
Author Author [facility] Organization [facility] Address Unknown Phone Unavailable Care Team Providers Care Bilingual Sales Assistant Name Role Phone PCP Unavailable Encounter Details Care Team Description Date Type Department 10/12/2019 [facility] [address] [address] Social History Date Tobacco Use Types Packs/Day [...] NECK EXTERNAL IMAGING Routine 10/12/2019 12:00 AM SILK SCREEN CUTTER documented in this encounter Results * CT NECK EXTERNAL IMAGING (10/12/2019 12:00 AM SILK SCREEN CUTTER) Specimen Narrative Performed At This order has been auto finalized and does not contain a result. documented in this encounter Visit Diagnoses Not on filedocumented in this encounter
--- OUTSIDE RECORDS SUMMARY | 2019-12-22 15:52 | XMS REPORT | Encounter Summary ---
Author Author [facility] Organization [facility] Address Unknown Phone Unavailable Care Team Providers Care Skin Care Technician Name Role Phone Eunice Vidal MD PCP Reason for Visit * Reason Comments Other Fax number Encounter Details Care Team Description Date Type Department Juan Decker MD [address] Ortho/Med Pavilion [address] [place], [place] [phone] Other (Fax number) 11/05/[address] [facility] [address] [place] [address] Social History Date Tobacco Use [...] Reny Vaca RN - 11/05/2019 1:39 PM PHYSICIAN PRESIDENT Faxed as requested to [place] [facility] to get the PET scan scheduled. ICIAN PRESIDENT * Telephone Encounter - Yari Cortez - 11/05/2019 10:48 AM PHYSICIAN PRESIDENT [facility] from [place], [place] called and left a Vm about regarding a fax numbe r to them, they left fax number [phone] ICIAN PRESIDENT documented in this encounter Plan of Treatment Not on filedocumented as of this encounter Visit Diagnoses Not on filedocumented in this encounter
--- OUTSIDE RECORDS SUMMARY | 2019-12-22 15:52 | XMS REPORT | Encounter Summary ---
Author Author [facility] Organization [facility] Address Unknown Phone Unavailable Care Team Providers Care Artist Relationship Manager Name Role Phone Eunice Vidal MD PCP Encounter Details Care Team Description Date Type Department Naman Mir MD [address] Ortho/Med Pavilion [address] [place] [address] [phone] 11/13/2019 Prep for Case [facility] [address] [place] [phone] Social History Date Tobacco Use Types Packs/Day [...]
--- OUTSIDE RECORDS SUMMARY | 2019-12-22 15:52 | XMS REPORT | Encounter Summary ---
Author Author [facility] Organization [facility] Address Unknown Phone Unavailable Care Team Providers Care Talent Solutions Manager Name Role Phone Eunice Vidal MD PCP Reason for Referral * Consult, Test & Treat (Routine) Referred By Contact Referred To Contact Status Reason Specialty Diagnoses / Procedures Naman Mir MD [address] [facility] [address] [place] [id number] New Request Specialty Services Diagnoses Required Laryngeal cancer (HCC) * Consult, Test & Treat (Routine) Referred By Contact Referred To Contact Status Reason Specialty Diagnoses / Procedures Naman Mir MD [address] [facility] Lvl [address] [place] [phone] New Request Specialty Services Diagnoses Required Laryngeal cancer (HCC) Reason for Visit * Reason Comments Other laryngeal CA * Consult, Test & Treat (Routine) Referred By Contact Referred To Contact Status Reason Specialty Diagnoses / Procedures Mike Huff MD [address] [address] Cc - Ww Cl Exm/Proc [facility] [address] No Auth Needed Oncology Diagnoses hx scca of epiglottis now recurrence Encounter Details Care Team Description Date Type Department Naman Mir MD [address] [facility] [address] [place] [address] [phone] Laryngeal cancer (HCC) (Primary Dx); Squamous cell carcinoma of supraglottis (HCC); Pharyngeal dysphagia; Severe protein-calorie malnutrition (HCC) 10/31/2019 Office Visit [facility] [address] [facility] [address] [place] [phone] Social History Date Tobacco Use Types Packs/Day [...] Reny Vaca RN - 10/31/2019 12:30 PM METER MAINTENANCE PERSON General Instructions for Surgery Patients You are scheduled for surgery on: 11/13/2019 Your surgeon is: Naman Mir MD Your nurse coordinator is: Reny Vaca RN Contact Information: Main Office: [phone], hours Tuesday thru Tuesday 8:00am-4:30pm option #1. Dr. Decker: Please ask for your nurse. Dr. Mir: Please ask for your nurse. If you are unable to contact your physician, please contact same day surgery [phone] When to arrive A technical sales representatives from the operating room will call after 3pm on the last s day before your procedure with information about when you should arrive at the hospital. If your procedure is scheduled for Tuesday, you will receive this call on Tuesday. If you do not receive a call from the operating room technical sales representatives about your a rrival time by 4pm, call the Preoperative Evaluation Clinic. Between 3:30pm and 6pm - Call or (from [place] only) . After 6pm - Call . If you are coming from out of town and staying overnight in [place], please provide us with your local number. It is very important that we are able to cont act you. Parking Park in the parking garage off of [facility]. [facility] through [facility] 1st floor main Entrance and check in wi th admitting on 1st floor. Bringing Visitors As a courtesy to other families and visitors, please limit the number of your ut iting room visitors to two. What to bring? Bring a list of all medications you are currently taking. Bring your insurance i nformation or insurance/prescription cards. If you have a living will or a durab le power of client manager, please bring a copy to be included [...] piercings. Do not wear make-up or fingernail trinidadian. Medications Please make us aware of any and all prescription, doth-dyw-jlkypue, or supplemen ts you are taking. The [...] aspirin without seeking the Approval of your Transportation Job Titles. Non-Steroidal Anti-Inflammatory Drugs (NSAIDS): such as: Aspirin (Ecotrin, Exced rin, and Pamprin), Ibuprofen (Advil, Motrin), Naproxyn (Aleve) or any other anti -inflammatory medication Other medications to avoid: Lortab, Darvocent-N, or cold medications such as Alk a [place], Sine-Off, Vitamin E (more than 400units). If [...] sore throat, nausea, vomiting or other illness. [facility] Address and Instructions [facility] [place], [place] [address] [place] [address] is on the main [facility] campus at the northwest corner of [address] [place] [address] [address] [facility]. We are pleased to serve you and appreciate your trust in our care. On the day of your procedure: Park in the P5 parking garage on the corner of [address] [place] [address] and [facility]. The fee is $3 with validation; bring your ticket to any information desk for validation. Enter [facility] through the main entrance on the street level. Check in at the admitting desk on Level 1. When your registration is complete, check in with the waiting operating room specialist. You will be escorted to the location of your procedure. Your family or friends may wait comfortably in the common areas on Level 1. R MAINTENANCE PERSON documented in this encounter Progress Notes * Naman Mir MD - 10/31/2019 12:30 PM METER MAINTENANCE PERSON Chief Complaint Patient presents with Other laryngeal CA History of Present Illness: Gracie Sloan is a 74 y.o. year old female evaluated on 10/31/2019, in the Otolary ngology-Head and Neck Surgery Clinic at the [facility]. The patient was referred by Dr. [...] ago. She has never used smokeless toba key account executive. She reports previous alcohol use. She reports [...] I would te ntatively stage as a [id number] lesion based on exam and imaging. PLAN: [...] Staff name: Naman Mir MD Date: 10/31/2019 R MAINTENANCE PERSON * Reny Vaca, RN - 10/31/2019 12:30 PM METER MAINTENANCE PERSON Pre Visit Planning- New Patient Records received: Yes Orders have been NA Patient inactive in [facility]. Imaging: Yes Special equipment: N/A CT NECK EXTERNAL IMAGING This order has been auto finalized and does not contain a result. R MAINTENANCE PERSON documented in this encounter Plan of Treatment [...]
--- OUTSIDE RECORDS SUMMARY | 2019-12-22 15:52 | XMS REPORT | Encounter Summary ---
Author Author [facility] Organization [facility] Address Unknown Phone Unavailable Care Team Providers Care Bottle Washing Machine Operator Name Role Phone Eunice Vidal MD PCP Encounter Details Care Team Description Date Type Department Nelida Buenrostro MD [address] [address] [phone] Raymond Flores MD [address] [address] [phone] 11/13/2019 Anesthesia [facility] OR [address] [phone] Anesthesia Record Responsible Anesthesiologist Anesthesia Start Time [...] Nelida Buenrostro MD - 11/07/2019 7:47 AM TELEPHONE ADVICE NURSE Anesthesia Pre-Procedure Evaluation Name: Gracie Sloan : 1945 Age: 74 y.o. Se x: female Procedure Info: Procedure Information Date/Time: 11/13/19 0800 Procedures: TRACHEOSTOMY PLANNED (N/A ) - CASE LENGTH 2 HOURS, REQUEST 1ST START DIRECT MICROLARYNGOSCOPY WITH BIOPSY (N/A ) BRONCHOSCOPY DIAGNOSTIC WITH CELL WASHING - FLEXIBLE (N/A ) RIGID ESOPHAGOSCOPY WITH SPECIMEN COLLECTION (N/A ) Location: [facility] OR08 / CA3 OR/Periop Surgeon: Naman [...] Yes Hypertension, No valvular problems/murmurs No past PR, Palpitations Dysrhythmias (Pradaxa self-discontinued 10/24/19; metoprolol); atrial [...] a poor surgical candidate due to her GOLD MINER D and other medical comorbidities. I do [...] CMP, ECG MANDIE: Dr. Neri (cardiology, [facility])--most recent OV note, ECHO, stress, cardiac cath, carotid duplex consult: none Patient hand-delivered cardiac clearance from Dr. Neri ([facility] ) dated 11/05/19. Patient self-discontinued (without direction from cardiology) Pradaxa 10/24/19 with instruction on clearance letter for 5 day hold of anticoagu lation (discrepancy in timing not noted). Radha Vaca PharmD, contacting [facility] ient's trainer for clarification of anticoagulation hold in interim between PAT appointment and DOS. Per Radha after discussion with cardiology office, patient's anticoagulation will be discussed with trainer with recommendat ions to follow--all recommendations to [...] to DOS. Patient is currently drinking En sure/[place] instant breakfast for nutrition, as she is unable to swallow micki d food. Patient encouraged to continue doing this with possible Gatorade or nitesh ctrolyte drinks to supplement. States she will do this. Repeat BMP ordered DOS . PHONE ADVICE NURSE documented in this encounter Plan of Treatment Not on filedocumented as of this encounter Visit Diagnoses Not on filedocumented in this encounter
--- OUTSIDE RECORDS SUMMARY | 2019-12-22 15:52 | XMS REPORT | Encounter Summary ---
Author Author [facility] Organization [facility] Address Unknown Phone Unavailable Care Team Providers Care Zipper Trimmer Hand Name Role Phone Eunice Vidal MD PCP Reason for Visit * Reason Comments Other Encounter Details Care Team Description Date Type Department BurNaman MD [address] [facility] Lvl [address] [place], [place] [phone] Other 11/02/2019 Telephone [facility] [address] [place] [phone] Social History Date Tobacco Use Types Packs/Day [...] Reny Vaca RN - 11/02/2019 3:44 PM WASTE TRANSPORTATION TECHNICIAN Notified patient of the PAT appointment. Day, time and location noted. Patient 's son is still concerned about his wait at the initial consult. Listened to th e patient's son express his concern for 10+ minutes. Expressed that this office would make every effort to decrease wait as able in the future. Order for the PET scan faxed to [facility]e in [place]. E TRANSPORTATION TECHNICIAN * Telephone Encounter - Rekha Chaparro - 11/02/2019 1:30 PM WASTE TRANSPORTATION TECHNICIAN Pt son would like a call back to discuss PET scans and upcoming appointments. E TRANSPORTATION TECHNICIAN documented in this encounter Plan of Treatment Not on filedocumented as of this encounter Visit Diagnoses Not on filedocumented in this encounter
--- OUTSIDE RECORDS SUMMARY | 2019-12-22 15:52 | XMS REPORT | Encounter Summary ---
Author Author [facility] Organization [facility] Address Unknown Phone Unavailable Care Team Providers Care Business Database Analyst Name Role Phone Eunice Vidla MD PCP Encounter Details Care Team Description Date Type Department Reny Vaca RN 11/12/2019 Documentation [facility] [address] [place] [address] Social History Date Tobacco Use [...]
--- OUTSIDE RECORDS SUMMARY | 2019-12-22 15:52 | XMS REPORT | Encounter Summary ---
Author Author [facility] Organization [facility] Address Unknown Phone Unavailable Care Team Providers Care Shuttlecock Feather Trimmer Name Role Phone Eunice Vidal MD PCP Reason for Visit * Reason Comments Other Reschedule Surgery Encounter Details Care Team Description Date Type Department BurNaman MD [address] [facility] Lvl [address] [place], [place] [phone] Other (Reschedule Surgery) 11/12/2019 Telephone [facility] [address] [place] [address] Social History Date Tobacco Use [...] Reny Vaca RN - 11/13/2019 9:57 AM SEARCH ENGINE OPTIMIZATION SPECIALIST Spoke with the patient's son who spoke [...] before 4 pm when the OR calls. CH ENGINE OPTIMIZATION SPECIALIST * Telephone Encounter - Galo Laguna - 11/12/2019 4:20 PM SEARCH ENGINE OPTIMIZATION SPECIALIST Patient's son Marvin called to cancel and reschedule the surgery scheduled for t omorrow with Dr Mir. Patient was feeling very weak and unable to make the surge ry tomorrow. He requested a call back to get it rescheduled. CH ENGINE OPTIMIZATION SPECIALIST documented in this encounter Plan of Treatment Not on filedocumented as of this encounter Visit Diagnoses Not on filedocumented in this encounter
--- OUTSIDE RECORDS SUMMARY | 2019-12-22 15:52 | XMS REPORT | Encounter Summary ---
Author Author [facility] Organization [facility] Address Unknown Phone Unavailable Care Team Providers Care Closed Circuit Screen Watcher Name Role Phone Eunice Vidal MD PCP Encounter Details Care Team Description Date Type Department Naman Mir MD [address] [facility] Lvl [address] [place], [place] [phone] Cancer of larynx (HCC) (Primary Dx) 10/31/2019 Prep for Case [facility] [address] [place] [phone] Social History Date Tobacco Use Types Packs/Day [...]
--- OUTSIDE RECORDS SUMMARY | 2019-12-22 15:52 | XMS REPORT | Encounter Summary ---
Author Author [facility] Organization [facility] Address Unknown Phone Unavailable Care Team Providers Care Automatic Centrifugal Station Operator Name Role Phone Eunice Vidal MD PCP Reason for Visit * Reason Comments Follow Up Erroneous encounter-disregard Encounter Details Care Team Description Date Type Department Eunice Vidal MD [address] [place] [address] Yesenia Hager MA,CCC-ASSEMBLER ARRANGER [address] [facility] [address] [place] [phone] ERRONEOUS ENCOUNTER--DISREGARD (Primary Dx) 10/31/2019 Clinical [facility] [address] [place] [phone] Social History Date Tobacco Use Types Packs/Day [...] Comments Vital Sign 129/79 10/31/2019 1:09 PM WASTEWATER PLANT CIVIL ENGINEER Blood Pressure 84 10/31/2019 1:09 PM WASTEWATER PLANT CIVIL ENGINEER Pulse - - Temperature - - Respiratory Rate - - Oxygen Saturation - - Inhaled Oxygen Concentration - - Weight 160 cm (5' 3") 10/31/2019 1:09 PM WASTEWATER PLANT CIVIL ENGINEER Height - - Body Mass Index documented [...] this encounter Progress Notes * Yesenia Hager MA,CCC-ASSEMBLER ARRANGER - 10/31/2019 2:00 PM WASTEWATER PLANT CIVIL ENGINEER This encounter was created in error. Please disregard. T documented in this encounter Plan of Treatment Not on filedocumented as of this encounter Visit Diagnoses Diagnosis ERRONEOUS ENCOUNTER--DISREGARD documented in this encounter
--- NOTE | 2019-12-22 16:04 | NUR ---
1600 REPORT TAKEN AT THIS TIME, THIS RN WILL ASSUME CARE OF THIS PATIENT WHEN SHE ARRIVES TOT 4TH FLOOR.
--- OUTSIDE RECORDS SUMMARY | 2019-12-22 16:08 | XMS REPORT | Continuity of Care Document ---
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 05/08/2011 Ot 427.31 ATR IAL FIBRILLATION 05/08/2011 Ot 558.9 BETTY NF GASTROENTERIT NEC 05/08/2011 Ot 724.2 LUMBAGO 05/13/2011 Ot 038.9 SEPT ICEMIA NOS 05/13/2011 Ot 244.9 HYPO THYROIDISM NOS 05/13/2011 Ot 253.6 NEUR OHYPOPHYSIS DIS NEC 05/13/2011 Ot 293.0 DELI RIUM DUE TO CONDITIONS CLASSIFIED EL 05/13/2011 Ot 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 01 MCC (CURRENT) USE OF ANTICOAGULANT 10/10/2015 LELE HUGHES MD Ot Z79.899 OTHER MCC (CURRENT) DRUG THERAPY 11/17/2015 Ot 458.9 11/18/2015 [...] Z86.010 PERSONAL HISTORY OF COLONIC POLYPS 01/30/2016 SHANKS KIM BAER Ot K21. 9 GASTRO-ESOPHAGEAL REFLUX DISEASE WITHOUT 01/30/2016 THURSTON ELVER BAERTT Angus Ot K22. 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 01/30/2016 SHANKS KIM BAER Ot Z01.818 ENCOUNTER FOR OTHER PREPROCEDURAL EXAMIN 01/30/2016 SHANKS KIM BAER Ot Z86.010 PERSONAL HISTORY OF [...] RTENSION NOS 08/09/2016 Ot 440.20 ATH EROSCLEROSIS TELLER ARTERIES EXTREMIT 08/09/2016 Ot 587 RENAL SCLEROSIS [...] OHYPOPHYSIS DIS NEC 08/09/2016 Ot 305.1 TOBA VICE PRESIDENT OF NURSING USE DISORDER 08/09/2016 Ot 401.9 HYPE RTENSION NOS 08/09/2016 Ot 428.0 SEVERINO ESTIVE HEART FAILURE NOS 08/09/2016 Ot 433.30 MUL T BILTRAL ARTERY OCCLUSION WO CEREBRA 08/09/2016 Ot V76.12 OTH SCREEN MAMMO- MALIGN NEOPLASM OF GUERO 08/09/2016 Ot 253.6 NEUR OHYPOPHYSIS DIS NEC 08/09/2016 Ot 305.1 TOBA VICE PRESIDENT OF NURSING USE DISORDER 08/09/2016 Ot 496 CHR AI [...] Ot 477. 9 ALLERGIC RHINITIS NOS 08/09/2016 LLEE HUGHES MD Ot 721. 3 LUMBOSACRAL SPONDYLOSIS [...] 09/13/2016 TOSHIA DUENAS DO Ot Z79.899 OTHER MCC (CURRENT) DRUG THERAPY 09/15/2016 TOSHIA DUENAS DO Ot F17.210 NICOTINE DEPENDENCE, CIGARETTES, UNCOMPL 09/15/2016 TOSHIA DUENAS DO Ot I48.2 CHRONIC ATRIAL FIBRILLATION 09/15/2016 TOSHIA DUENAS DO Ot I50.9 HEART FAILURE, UNSPECIFIED 09/15/2016 TOSHIA DUENAS DO Ot J44.1 CHRONIC OBSTRUCTIVE PULMONARY DISEASE W 09/15/2016 TOSHIA DUENAS DO Ot R06.02 SHORTNESS OF BREATH 09/15/2016 TOSHIA DUENAS DO Ot Z79.899 OTHER VETERINARIAN EPIDEMIOLOGIST (CURRENT) DRUG THERAPY 09/15/2016 TOSHIA DUENAS DO Ot F17.210 NICOTINE DEPENDENCE, CIGARETTES, UNCOMPL 09/15/2016 TOSHIA DUENAS DO Ot I48.2 CHRONIC ATRIAL FIBRILLATION 09/15/2016 TOSHIA DUENAS DO Ot I50.9 HEART FAILURE, UNSPECIFIED 09/15/2016 TOSHIA DUENAS DO Ot J44.1 CHRONIC OBSTRUCTIVE PULMONARY DISEASE W 09/15/2016 TOSHIA DUENAS DO Ot R06.02 SHORTNESS OF BREATH 09/15/2016 OTSHIA DUENAS DO Ot Z79.899 OTHER VETERINARIAN EPIDEMIOLOGIST (CURRENT) DRUG THERAPY 09/15/2016 LELE HUGHES MD [...] 11/05/2016 LELE HUGHES MD Ot Z79.899 OTHER VETERINARIAN EPIDEMIOLOGIST (CURRENT) DRUG THERAPY 11/07/2016 NIVIA LAU, DIALLO S Ot J44.9 CHRONIC OBSTRUCTIVE PULMONARY DISEASE, U 05/11/2017 VERONICA LAU FACC, ALI FACP CCDS Ot I73.89 OTHER SPECIFIED PERIPHERAL VASCULAR DISE 05/11/2017 Ot 458.9 HYPO TENSION NOS 05/11/2017 Ot 789.01 ABD OMINAL PAIN, RIGHT UPPER QUADRANT 05/11/2017 Ot 401.9 HYPE RTENSION NOS 05/11/2017 Ot 440.20 ATH EROSCLEROSIS TELLER ARTERIES EXTREMIT 05/11/2017 Ot 587 RENAL SCLEROSIS [...] OHYPOPHYSIS DIS NEC 05/11/2017 Ot 305.1 TOBA VICE PRESIDENT OF NURSING USE DISORDER 05/11/2017 Ot 401.9 HYPE RTENSION NOS 05/11/2017 Ot 428.0 SEVERINO ESTIVE HEART FAILURE NOS 05/11/2017 Ot 433.30 MUL T BILTRAL ARTERY OCCLUSION WO CEREBRA 05/11/2017 Ot V76.12 OTH SCREEN MAMMO- MALIGN NEOPLASM OF GUERO 05/11/2017 Ot 253.6 NEUR OHYPOPHYSIS DIS NEC 05/11/2017 Ot 305.1 TOBA VICE PRESIDENT OF NURSING USE DISORDER 05/11/2017 Ot 496 CHR AI [...] ESTES Ot 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 05/28/2017 EMELY ESTES Ot I48.91 UNSPECIFIED [...] [place], INITIA 05/28/2017 EMELY ESTES Ot Y92.[address] [facility] [address] [facility] 05/28/2017 EMELY ESTES Ot Z79.82 MCC (CURRENT) USE OF ASPIRIN 05/28/2017 EMELY ESTES [...] ESTES Ot 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 (PRIVATE 06/04/2017 EMELY ESTES Ot Z79.82 MCC (CURRENT) USE OF ASPIRIN 06/04/2017 BONNY PA, EMELY L Ot Z82.49 FAMILY HX OF ISCHEM HEART DIS AND OTH DI 06/04/2017 EMELY ESTES Ot Z87.09 PERSONAL HISTORY OF OTHER DISEASES OF TH 06/04/2017 EMELY ESTES Ot Z87.19 PERSONAL HISTORY OF OTHER DISEASES OF TH 06/07/2017 Ot 458.9 HYPO TENSION NOS 06/07/2017 Ot 440.20 ATH EROSCLEROSIS TELLER ARTERIES EXTREMIT 06/07/2017 Ot 587 RENAL SCLEROSIS [...] OHYPOPHYSIS DIS NEC 06/07/2017 Ot 305.1 TOBA VICE PRESIDENT OF NURSING USE DISORDER 06/07/2017 Ot 401.9 HYPE RTENSION NOS 06/07/2017 Ot 428.0 SEVERINO ESTIVE HEART FAILURE NOS 06/07/2017 Ot 433.30 MUL T BILTRAL ARTERY OCCLUSION WO CEREBRA 06/07/2017 Ot V76.12 OTH SCREEN MAMMO- MALIGN NEOPLASM OF GUERO 06/07/2017 Ot 253.6 NEUR OHYPOPHYSIS DIS NEC 06/07/2017 Ot 305.1 TOBA VICE PRESIDENT OF NURSING USE DISORDER 06/07/2017 Ot 496 CHR AI [...] Ot V58. 69 OTH MED,LT,CURRENT USE 06/07/2017 LLEE HUGHES MD Ot 721. 3 LUMBOSACRAL SPONDYLOSIS [...] ACTIVITY, COOKING AND BAKING 07/06/2017 ECTOR DORSEY OPTICAL COATING TECHNICIAN Ot T21.25XA BURN OF SECOND DEGREE OF BUTTOCK, INITIA 07/06/2017 ECTOR DORSEY OPTICAL COATING TECHNICIAN Ot T24.212A BURN OF SECOND DEGREE OF LEFT THIGH, INI 07/06/2017 ECTOR DORSEY OPTICAL COATING TECHNICIAN Ot T65.292A TOXIC EFFECT OF TOBACCO AND NICOTINE, SE 07/06/2017 ECTOR DORSEY OPTICAL COATING TECHNICIAN Ot X12.XXXA CONTACT WITH OTHER HOT FLUIDS, [...] DEGREE OF BUTTOCK, INITIA 07/21/2017 ECTOR DORSEY OPTICAL COATING TECHNICIAN Ot T24.212A BURN OF SECOND DEGREE OF LEFT THIGH, INI 07/21/2017 ECTOR DORSEY OPTICAL COATING TECHNICIAN Ot T65.292A TOXIC EFFECT OF TOBACCO AND NICOTINE, SE 07/21/2017 ECTOR DORSEY OPTICAL COATING TECHNICIAN Ot X12.XXXA CONTACT WITH OTHER HOT FLUIDS, [...] DISORDERS OF ADRENAL GLA 09/14/2017 BIANCA BAER MERRTIT L Ot E55.9 VITAMIN D DEFICIENCY, UNSPECIFIED [...] OHYPOPHYSIS DIS NEC 02/23/2018 Ot 305.1 TOBA VICE PRESIDENT OF NURSING USE DISORDER 02/23/2018 Ot 401.9 HYPE RTENSION NOS 02/23/2018 Ot 428.0 SEVERINO ESTIVE HEART FAILURE NOS 02/23/2018 Ot 433.30 MUL T BILTRAL ARTERY OCCLUSION WO CEREBRA 02/23/2018 Ot V76.12 OTH SCREEN MAMMO- MALIGN NEOPLASM OF GUERO 02/23/2018 Ot 253.6 NEUR OHYPOPHYSIS DIS NEC 02/23/2018 Ot 305.1 TOBA VICE PRESIDENT OF NURSING USE DISORDER 02/23/2018 Ot 496 CHR AI [...] CCDS Ot J43.8 OTHER EMPHYSEMA 02/23/2018 VERONICA ALU FACC, ALI FACP CCDS Ot Z72.0 TOBACCO [...] OHYPOPHYSIS DIS NEC 03/01/2018 Ot 305.1 TOBA VICE PRESIDENT OF NURSING USE DISORDER 03/01/2018 Ot 401.9 HYPE RTENSION NOS 03/01/2018 Ot 428.0 SEVERINO ESTIVE HEART FAILURE NOS 03/01/2018 Ot 433.30 MUL T BILTRAL ARTERY OCCLUSION WO CEREBRA 03/01/2018 Ot V76.12 OTH SCREEN MAMMO- MALIGN NEOPLASM OF GUERO 03/01/2018 Ot 253.6 NEUR OHYPOPHYSIS DIS NEC 03/01/2018 Ot 305.1 TOBA VICE PRESIDENT OF NURSING USE DISORDER 03/01/2018 Ot 496 CHR AI [...] MD, Ot 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 03/01/2018 RAYNA FARAH MD Ot I48.91 [...] ABNORMALITIES 03/01/2018 RAYNA FARAH MD Ot Z79.01 VETERINARIAN EPIDEMIOLOGIST (CURRENT) USE OF ANTICOAGULANT 03/01/2018 RAYNA FARAH MD Ot Z79.89 9 OTHER MCC (CURRENT) DRUG THERAPY 03/01/2018 RAYNA FARAH MD, Ot 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 STATUS 03/07/2018 RAYNA FARAH MD Ot D12.5 BENIGN NEOPLASM OF SIGMOID COLON 03/07/2018 RAYNA FARAH MD Ot I11.0 HYPERTENSIVE HEART DISEASE WITH HEART FA 03/07/2018 RAYNA FARAH MD, Ot 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 03/07/2018 RAYNA FARAH MD Ot I48.91 [...] ABNORMALITIES 03/07/2018 RAYNA FARAH MD, Ot Z79.01 MCC (CURRENT) USE OF ANTICOAGULANT 03/07/2018 RAYNA FARAH MD, Ot Z79.89 9 OTHER VETERINARIAN EPIDEMIOLOGIST (CURRENT) DRUG THERAPY 03/07/2018 RAYNA FARAH MD, Ot 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 STATUS 03/09/2018 RAYNA FARAH MD, Ot D12.5 BENIGN NEOPLASM OF SIGMOID COLON 03/09/2018 RAYNA FARAH MD, Ot I11.0 HYPERTENSIVE HEART DISEASE WITH HEART FA 03/09/2018 RAYNA FARAH MD, Ot 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 03/09/2018 RAYNA FARAH MD, Ot I48.91 [...] ABNORMALITIES 03/09/2018 RAYNA FARAH MD, Ot Z79.01 MCC (CURRENT) USE OF ANTICOAGULANT 03/09/2018 RAYNA FARAH MD, Ot Z79.89 9 OTHER MCC (CURRENT) DRUG THERAPY 03/09/2018 RAYNA FARAH MD, [...] CCDS Ot 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 06/26/2018 VERONICA LAU FACC, ALI FACP CCDS Ot I48.0 PAROXYSMAL ATRIAL FIBRILLATION 06/28/2018 VERONICA LAU FACC, ALI FACP CCDS Ot I11.9 HYPERTENSIVE HEART DISEASE WITHOUT HEART 06/28/2018 VERONICA LAU FACC, ALI FACP CCDS Ot 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 06/28/2018 VERONICA LAU FACKaren, ALI FACP [...] MD Ot 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 06/29/2018 JOVANA HULL MD Ot I48.91 UNSPECIFIED ATRIAL FIBRILLATION 06/29/2018 JOVANA HULL MD, Ot J44 .9 CHRONIC OBSTRUCTIVE PULMONARY DISEASE, U 06/29/2018 JOVANA HULL MD Ot 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 06/29/2018 JOVANA HULL MD Ot Z79.01 VETERINARIAN EPIDEMIOLOGIST (CURRENT) USE OF ANTICOAGULANT 06/29/2018 JOVANA HULL MD Ot Z79.82 VETERINARIAN EPIDEMIOLOGIST (CURRENT) USE OF ASPIRIN 06/29/2018 JOVANA HULL MD Ot Z79.899 OTHER VETERINARIAN EPIDEMIOLOGIST (CURRENT) DRUG THERAPY 07/03/2018 JOVANA HULL MD [...] MD Ot 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 07/04/2018 JOVANA HULL MD Ot I48.91 UNSPECIFIED ATRIAL FIBRILLATION 07/04/2018 JOVANA HULL MD, Ot J44 .9 CHRONIC OBSTRUCTIVE PULMONARY DISEASE, U 07/04/2018 JOVANA HULL MD Ot 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 07/04/2018 JOVANA HULL MD Ot Z79.01 VETERINARIAN EPIDEMIOLOGIST (CURRENT) USE OF ANTICOAGULANT 07/04/2018 JOVANA HULL MD Ot Z79.82 VETERINARIAN EPIDEMIOLOGIST (CURRENT) USE OF ASPIRIN 07/04/2018 JOVANA HULL MD Ot Z79.899 OTHER MCC (CURRENT) DRUG THERAPY 07/06/2018 JOVANA HULL MD Ot C32 .1 MALIGNANT NEOPLASM OF SUPRAGLOTTIS 07/06/2018 JOVANA HULL MD Ot F17.210 NICOTINE DEPENDENCE, CIGARETTES, UNCOMPL 07/06/2018 JOVANA HULL MD Ot I10 ESSENTIAL (PRIMARY) HYPERTENSION 07/06/2018 JOVANA HULL MD Ot 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 07/06/2018 JOVANA HULL MD Ot I48.91 UNSPECIFIED ATRIAL FIBRILLATION 07/06/2018 JOVANA HULL MD Ot J44 .9 CHRONIC OBSTRUCTIVE PULMONARY DISEASE, U 07/06/2018 JOVANA HULL MD Ot 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 07/06/2018 JOVANA HULL MD, Ot Z79.01 MCC (CURRENT) USE OF ANTICOAGULANT 07/06/2018 JOVANA HULL MD, Ot Z79.82 MCC (CURRENT) USE OF ASPIRIN 07/06/2018 JOVANA HULL MD, Ot Z79.899 OTHER MCC (CURRENT) DRUG THERAPY 07/26/2018 VERONICA LAU FAC, ALI FACP CCDS Ot I11.9 HYPERTENSIVE HEART DISEASE WITHOUT HEART 07/26/2018 VERONICA LAU FACC, ALI FACP CCDS Ot 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 07/26/2018 VERONICA LAU FACC, ALI FACP [...] OSTEOPOROSIS W/O CURRENT PAT 08/08/2018 VERONICA LAU [facility], ALI FACP CCDS Ot I11.9 HYPERTENSIVE HEART DISEASE WITHOUT HEART 08/08/2018 VERONICA LAU FACC, ALI FACP CCDS Ot 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 08/08/2018 VERONICA LAU FAC, ALI FACP [...] DIASTOLIC (CONGESTIVE) HEART FAROOQ 05/11/2019 VERONICA LAU [facility], ALI FACP CCDS Ot J43.8 OTHER EMPHYSEMA 05/11/2019 VERONICA LAU [facility], ALI FACP CCDS Ot Z72.0 TOBACCO USE [...] LOCALIZED ENLARGED LYMPH NODES 05/11/2019 VERONICA LAU [facility], ALI FACP CCDS Ot I11.9 HYPERTENSIVE HEART DISEASE WITHOUT HEART 05/11/2019 VERONICA LAU [facility], ALI FACP CCDS Ot 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 05/11/2019 VERONICA LAU [facility], ALI ANGELA CCDS Ot I48.0 PAROXYSMAL ATRIAL [...] CCDS Ot 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 07/10/2019 VERONICA LAU FACC, ALI FACP CCDS Ot I48.0 PAROXYSMAL ATRIAL FIBRILLATION 07/10/2019 VERNOICA LAU FACC, ALI FACP CCDS Ot I50.9 [...] LAU FACC, TERRY FACP CCDS Ot Z79.01 VETERINARIAN EPIDEMIOLOGIST (CURRENT) USE OF ANTICOAGULANT 07/10/2019 VERONICA LAU FACC, TERRY FACP CCDS Ot Z79.82 MCC (CURRENT) USE OF ASPIRIN 07/10/2019 VERONICA LAU FACC, TERRY FACP CCDS Ot Z79.899 OTHER VETERINARIAN EPIDEMIOLOGIST (CURRENT) DRUG THERAPY 07/10/2019 VERONICA LAU FACC, [...] CCDS Ot 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 07/13/2019 VERONICA LAU FACC, ALI FACP [...] LAU FACC, ALI FACP CCDS Ot Z79.01 VETERINARIAN EPIDEMIOLOGIST (CURRENT) USE OF ANTICOAGULANT 07/13/2019 VERONICA LAU FACC, TERRY FACP CCDS Ot Z79.82 MCC (CURRENT) USE OF ASPIRIN 07/13/2019 VERONICA LAU FACC, ALI FACP CCDS Ot Z79.899 OTHER MCC (CURRENT) DRUG THERAPY 07/13/2019 VERONICA LAU FACC, [...] CCDS Ot 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 07/17/2019 VERONICA LAU FACC, ALI FACP [...] LAU FACC, ALI FACP CCDS Ot Z79.01 VETERINARIAN EPIDEMIOLOGIST (CURRENT) USE OF ANTICOAGULANT 07/17/2019 VERONICA LAU FACC, ALI FACP CCDS Ot Z79.82 MCC (CURRENT) USE OF ASPIRIN 07/17/2019 VERONICA LAU FACC, ALI FACP CCDS Ot Z79.899 OTHER VETERINARIAN EPIDEMIOLOGIST (CURRENT) DRUG THERAPY 07/17/2019 VERONICA LAU FACC, [...] MD, Ot 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 07/27/2019 RAYNA FARAH MD, Ot I48.91 [...] MD, Ot 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 08/08/2019 RAYNA FARAH MD, Ot I48.91 [...] DIASTOLIC (CONGESTIVE) HEART FAROOQ 09/18/2019 VERONICA LAU [facility], ALI FACP CCDS Ot J43.8 OTHER EMPHYSEMA 09/18/2019 VERONICA LAU [facility], ALI FACP CCDS Ot Z72.0 TOBACCO USE [...] LOCALIZED ENLARGED LYMPH NODES 09/18/2019 VERONICA LAU [facility], ALI FAC CCDS Ot I11.9 HYPERTENSIVE HEART DISEASE WITHOUT HEART 09/18/2019 VERONICA LAU [facility], ALI FACP CCDS Ot 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 09/18/2019 VERONICA LAU [facility], ALI [facility] CCDS Ot I48.0 PAROXYSMAL ATRIAL FIBRILLATION [...] ABNORMAL FINDING OF SUSAN 09/18/2019 VERONICA LAU [facility], ALI FACP CCDS Ot D35.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 09/18/2019 VERONICA LAU [facility], ALI FACP CCDS Ot E87.1 HYPO-OSMOLALITY AND HYPONATREMIA 09/18/2019 VERONICA LAU [facility], ALI FACP CCDS Ot I10 ESSENTIAL (PRIMARY) HYPERTENSION 09/18/2019 VERONICA LAU [facility], ALI FACP CCDS Ot I48.0 PAROXYSMAL ATRIAL FIBRILLATION 09/18/2019 VERONICA LAU [facility], ALI FACP CCDS Ot I50.32 CHRONIC DIASTOLIC (CONGESTIVE) HEART FAROOQ 09/18/2019 VERONICA LAU [facility], ALI FACP CCDS Ot J43.8 OTHER EMPHYSEMA 09/18/2019 VERONICA LAU [facility], ALI FACP CCDS Ot Z72.0 TOBACCO USE [...] CCDS Ot 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 09/18/2019 VERONICA LAU FAC, ALI FACP [...] Ot 921 .0 BLACK EYE NOS 09/19/2019 OBNINA PRASAD MD Ot 959.01 HEAD INJURY, NOS [...] ABNORMAL FINDING OF SUSAN 09/19/2019 VERONICA LAU [facility], ALI FACP CCDS Ot D35.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 09/19/2019 VERONICA LAU [facility], ALI FACP CCDS Ot E87.1 HYPO-OSMOLALITY AND HYPONATREMIA 09/19/2019 VERONICA LAU [facility], ALI FACP CCDS Ot I10 ESSENTIAL (PRIMARY) HYPERTENSION 09/19/2019 VERONICA LAU [facility], ALI FACP CCDS Ot I48.0 PAROXYSMAL ATRIAL FIBRILLATION 09/19/2019 VERONICA LAU [facility], ALI FACP CCDS Ot I50.32 CHRONIC DIASTOLIC (CONGESTIVE) HEART FAROOQ 09/19/2019 VERONICA LAU [facility], ALI FACP CCDS Ot J43.8 OTHER EMPHYSEMA 09/19/2019 VERONICA LAU [facility], ALI FACP CCDS Ot Z72.0 TOBACCO USE [...] LOCALIZED ENLARGED LYMPH NODES 09/19/2019 VERONICA LAU [facility], ALI [facility] CCDS Ot I11.9 HYPERTENSIVE HEART DISEASE WITHOUT HEART 09/19/2019 VERONICA LAU [facility], [facility] CCDS Ot 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 09/19/2019 VERONICA LAU [facility], [facility] CCDS Ot I48.0 PAROXYSMAL ATRIAL FIBRILLATION 09/19/2019 [...] COOKING AND BAKING 10/12/2019 WILLIAN, ECTOR R OPTICAL COATING TECHNICIAN Ot T21.25XA BURN OF SECOND DEGREE OF [...] CCDS Ot 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 10/12/2019 VERONICA LAU FAC, ALI FACP [...] .9 MALIGNANT NEOPLASM OF LARYNX, UNSPECIFIE 10/18/2019 JOAVNA HULL MD Ot J31 .2 CHRONIC PHARYNGITIS [...] HEART DISEASE WITHOUT HEART 10/25/2019 VERONICA LAU [facility], ALI FACP CCDS Ot 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 10/25/2019 VERONICA LAU FAC, ALI FACP [...] 729. 1 MYALGIA AND MYOSITIS NOS 10/25/2019 LEEL HUGHES MD Ot V58. 69 OTH MED,LT,CURRENT [...] I10 ESSENTIAL (PRIMARY) HYPERTENSION 10/25/2019 VERONICA LAU [facility], ALI FACP CCDS Ot I48.0 PAROXYSMAL ATRIAL FIBRILLATION 10/25/2019 VERONICA LAU FAC, ALI FACP CCDS Ot I50.32 CHRONIC DIASTOLIC (CONGESTIVE) HEART FAROOQ 10/25/2019 VERONICA LAU FAC, ALI FACP CCDS Ot J43.8 OTHER EMPHYSEMA 10/25/2019 EVRONICA LAU FAC, ALI FACP CCDS Ot Z72.0 [...] LOCALIZED ENLARGED LYMPH NODES 10/25/2019 VERONICA LAU [facility], ALI [facility] CCDS Ot I11.9 HYPERTENSIVE HEART DISEASE WITHOUT HEART 10/25/2019 VERONICA LAU [facility], ALI [facility] CCDS Ot 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 10/25/2019 VERONICA LAU [facility], [facility] CCDS Ot I48.0 PAROXYSMAL ATRIAL FIBRILLATION 10/25/2019 [...] LOCALIZED ENLARGED LYMPH NODES 10/25/2019 VERONICA LAU [facility], [facility]I [facility] CCDS Ot I11.9 HYPERTENSIVE HEART DISEASE WITHOUT HEART 10/25/2019 VERONICA LAU [facility], [facility] CCDS Ot 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 10/25/2019 VERONICA LAU [facility], ALI [facility] CCDS Ot I48.0 PAROXYSMAL ATRIAL FIBRILLATION [...] 783.21 LOSS OF WEIGHT 10/25/2019 GAGAN LAU, RYANA Ot V72.84 EXAM PRE-OPERATIVE NOS 10/25/2019 SHAYY [...] ABNORMAL FINDING OF SUSAN 10/25/2019 VERONICA LAU [facility], ALI FACP CCDS Ot D35.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 10/25/2019 VERONICA LAU [facility], ALI FACP CCDS Ot E87.1 HYPO-OSMOLALITY AND HYPONATREMIA 10/25/2019 VERONICA LAU [facility], ALI FACP CCDS Ot I10 ESSENTIAL (PRIMARY) HYPERTENSION 10/25/2019 VERONICA LAU [facility], ALI FACP CCDS Ot I48.0 PAROXYSMAL ATRIAL FIBRILLATION 10/25/2019 VERONICA LAU [facility], ALI FACP CCDS Ot I50.32 CHRONIC DIASTOLIC (CONGESTIVE) HEART FAROOQ 10/25/2019 VERONICA LAU [facility], ALI FACP CCDS Ot J43.8 OTHER EMPHYSEMA 10/25/2019 VERONICA LAU [facility], ALI FACP CCDS Ot Z72.0 TOBACCO USE [...] CCDS Ot 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 10/25/2019 VERONICA LAU [facility], ALI FACP CCDS Ot I48.0 PAROXYSMAL ATRIAL [...] JARED Ot 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 10/25/2019 HERNANDEZ DO, JARED Ot I48.91 UNSPECIFIED ATRIAL FIBRILLATION 10/25/2019 HERNANDEZ DO, JARED Ot J43.9 EMPHYSEMA, UNSPECIFIED 10/25/2019 HERNANDEZ DO, JARED Ot K21.9 GASTRO-ESOPHAGEAL REFLUX DISEASE WITHOUT 10/25/2019 HERNANDEZ DO, JARED Ot K59.09 OTHER CONSTIPATION 10/25/2019 HERNANDEZ DO, JARED Ot M19.90 UNSPECIFIED OSTEOARTHRITIS, UNSPECIFIED 10/25/2019 HERNANDEZ DO, JARED Ot R60.0 LOCALIZED EDEMA 10/25/2019 HERNANDEZ DO, JARED Ot Z79.01 VETERINARIAN EPIDEMIOLOGIST (CURRENT) USE OF ANTICOAGULANT 10/25/2019 MARY BAER, JARED Ot Z79.52 VETERINARIAN EPIDEMIOLOGIST (CURRENT) USE OF SYSTEMIC STER 10/25/2019 MARY BAER, JARED Ot Z79.82 VETERINARIAN EPIDEMIOLOGIST (CURRENT) USE OF ASPIRIN 10/25/2019 MARY BAER, JARED Ot Z79.89 1 VETERINARIAN EPIDEMIOLOGIST (CURRENT) USE OF OPIATE ANALGE 10/25/2019 MARY BAER, JARED Ot Z79.89 9 OTHER [facility] (CURRENT) DRUG THERAPY 10/25/2019 MARY BAER, JARED [...] JARED Ot 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 10/25/2019 MARY BAER, JARED Ot I48.91 UNSPECIFIED ATRIAL FIBRILLATION 10/25/2019 MARY BAER, JARED Ot J43.9 EMPHYSEMA, UNSPECIFIED 10/25/2019 MARY BAER, JARED Ot K21.9 GASTRO-ESOPHAGEAL REFLUX DISEASE WITHOUT 10/25/2019 MARY BAER, JARED Ot K59.09 OTHER CONSTIPATION 10/25/2019 MARY BAER, JARED Ot M19.90 UNSPECIFIED OSTEOARTHRITIS, UNSPECIFIED 10/25/2019 MARY BAER, JARED Ot R60.0 LOCALIZED EDEMA 10/25/2019 MARY BAER JARED Ot Z79.01 VETERINARIAN EPIDEMIOLOGIST (CURRENT) USE OF ANTICOAGULANT 10/25/2019 MARY BAER JARED Ot Z79.52 MCC (CURRENT) USE OF SYSTEMIC STER 10/25/2019 MARY BAER JARED Ot Z79.82 VETERINARIAN EPIDEMIOLOGIST (CURRENT) USE OF ASPIRIN 10/25/2019 MARY BAER JARED Ot Z79.89 1 VETERINARIAN EPIDEMIOLOGIST (CURRENT) USE OF OPIATE ANALGE 10/25/2019 MARY BAER JARED Ot Z79.89 9 OTHER [facility] (CURRENT) DRUG THERAPY 10/25/2019 MARY BAER JARED [...] CCDS Ot E87.1 HYPO-OSMOLALITY AND HYPONATREMIA 11/05/2019 EVRONICA LAU FAC, ALI FACP CCDS Ot I10 [...] DEGREE OF BUTTOCK, INITIA 11/05/2019 ECTOR DORSEY OPTICAL COATING TECHNICIAN Ot T24.212A BURN OF SECOND DEGREE OF [...] CCDS Ot 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 11/05/2019 VERONICA LAU FAC, ALI FACP [...] HEART DISEASE WITHOUT HEART 11/07/2019 VERONICA LAU [facility] CCDS Ot 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 11/07/2019 VERONICA LAU [facility] CCDS Ot I48.0 PAROXYSMAL ATRIAL FIBRILLATION [...] LOCALIZED ENLARGED LYMPH NODES 11/15/2019 VERONICA LAU [facility] CCDS Ot I11.9 HYPERTENSIVE HEART DISEASE WITHOUT HEART 11/15/2019 VERONICA LAU [facility] CCDS Ot 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 11/15/2019 VERONICA LAU [facility] CCDS Ot I48.0 PAROXYSMAL ATRIAL FIBRILLATION [...] LOCALIZED ENLARGED LYMPH NODES 12/04/2019 VERONICA LAU [facility] CCDS Ot I11.9 HYPERTENSIVE HEART DISEASE WITHOUT HEART 12/04/2019 VERONICA LAU [facility], [facility] CCDS Ot 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 12/04/2019 VERONICA LAU [facility], [facility] CCDS Ot I48.0 PAROXYSMAL ATRIAL FIBRILLATION [...] Ot E87.1 HYPO-OSMOLALITY AND HYPONATREMIA 12/05/2019 JOVANA UHLL MD Ot I65.22 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 12/05/2019 JOVANA HULL MD Ot J38 .7 OTHER DISEASES OF LARYNX 12/05/2019 JOVANA HULL MD Ot R59 .0 LOCALIZED ENLARGED LYMPH NODES 12/05/2019 VERONICA LAU [facility], ALI FACP CCDS Ot I11.9 HYPERTENSIVE HEART DISEASE WITHOUT HEART 12/05/2019 VERONICA LAU [facility], ALI FACP CCDS Ot 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 12/05/2019 VERONICA LAU [facility], [facility] CCDS Ot I48.0 PAROXYSMAL ATRIAL FIBRILLATION [...] LOCALIZED ENLARGED LYMPH NODES 12/05/2019 VERONICA LAU [facility], [facility] CCDS Ot I11.9 HYPERTENSIVE HEART DISEASE WITHOUT HEART 12/05/2019 VERONICA LAU [facility], [facility] CCDS Ot 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 12/05/2019 VERONICA LAU [facility], [facility] CCDS Ot I48.0 PAROXYSMAL ATRIAL FIBRILLATION [...] OF LEFT ADRENAL GLAND 12/12/2019 VERONICA MD [facility], ALI FACP CCDS Ot E87.1 HYPO-OSMOLALITY AND HYPONATREMIA 12/12/2019 VERONICA LAU [facility], ALI FACP CCDS Ot I10 ESSENTIAL (PRIMARY) HYPERTENSION 12/12/2019 VERONICA MD [facility], ALI FACP CCDS Ot I48.0 PAROXYSMAL ATRIAL FIBRILLATION 12/12/2019 VERONICA MD [facility], ALI FACP CCDS Ot I50.32 CHRONIC DIASTOLIC (CONGESTIVE) HEART FAROOQ 12/12/2019 VERONICA LAU [facility], ALI FACP CCDS Ot J43.8 OTHER EMPHYSEMA 12/12/2019 VERONICA LAU [facility], ALI FACP CCDS Ot Z72.0 TOBACCO USE [...] DEGREE OF BUTTOCK, INITIA 12/12/2019 ECTOR DORSEY OPTICAL COATING TECHNICIAN Ot T24.212A BURN OF SECOND DEGREE OF LEFT THIGH, INI 12/12/2019 ECTOR DORSEY APRN Ot T65.292A TOXIC EFFECT OF TOBACCO AND NICOTINE, SE 12/12/2019 ECTOR DORSEY APRN Ot X12.XXXA CONTACT WITH OTHER HOT FLUIDS, INITIAL E 12/12/2019 ECTOR DORSEY OPTICAL COATING TECHNICIAN Ot Y93.G3 ACTIVITY, COOKING AND BAKING 12/12/2019 [...] CCDS Ot 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 12/12/2019 VERONICA LAU FAC, ALI FACP [...] Ot J43.8 OTHER EMPHYSEMA 12/13/2019 VERONICA LAU [facility], ALI FACP CCDS Ot Z72.0 TOBACCO USE [...] LOCALIZED ENLARGED LYMPH NODES 12/13/2019 VERONICA LAU [facility], ALI FACP CCDS Ot I11.9 HYPERTENSIVE HEART DISEASE WITHOUT HEART 12/13/2019 VERONICA LAU [facility], ALI FACP CCDS Ot 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 12/13/2019 VERONICA LAU [facility], ALI FACP CCDS Ot I48.0 PAROXYSMAL ATRIAL [...] CCDS Ot 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 12/14/2019 VERONICA LAU FACC, TERRY MILLER [...] Ot E000.8 OTHER EXTERNAL CAUSE STATUS 12/21/2019 OIBNNA PRASAD MD Ot E849.0 ACCIDENT IN HOME [...] LOCALIZED ENLARGED LYMPH NODES 12/21/2019 VERONICA LAU [facility] CCDS Ot I11.9 HYPERTENSIVE HEART DISEASE WITHOUT HEART 12/21/2019 VERONICA LAU [facility], [facility] CCDS Ot 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 12/21/2019 VERONICA LAU [facility] CCDS Ot I48.0 PAROXYSMAL ATRIAL FIBRILLATION 12/21/2019 [...] LOCALIZED ENLARGED LYMPH NODES 12/21/2019 VERONICA LAU [facility], ALI FACP CCDS Ot I11.9 HYPERTENSIVE HEART DISEASE WITHOUT HEART 12/21/2019 VERONICA LAU [facility], ALI [facility] CCDS Ot 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 12/21/2019 VERONICA LAU [facility], [facility] CCDS Ot I48.0 PAROXYSMAL ATRIAL FIBRILLATION [...] ABNORMAL FINDING OF SUSAN 12/21/2019 VERONICA LAU [facility], ALI FACP CCDS Ot D35.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 12/21/2019 VERONICA LAU [facility], ALI FACP CCDS Ot E87.1 HYPO-OSMOLALITY AND HYPONATREMIA 12/21/2019 VERONICA LAU FAC, ALI FACP CCDS Ot I10 ESSENTIAL (PRIMARY) HYPERTENSION 12/21/2019 VERONICA LAU [facility], ALI FACP CCDS Ot I48.0 PAROXYSMAL ATRIAL FIBRILLATION 12/21/2019 VERONICA LAU [facility], ALI FACP CCDS Ot I50.32 CHRONIC DIASTOLIC (CONGESTIVE) HEART FAROOQ 12/21/2019 VERONICA LAU [facility], ALI FACP CCDS Ot J43.8 OTHER EMPHYSEMA 12/21/2019 VERONICA LAU [facility], ALI FACP CCDS Ot Z72.0 TOBACCO USE [...] CCDS Ot 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 12/21/2019 VERONICA LAU FACC, ALI FACP [...] HEART DISEASE WITHOUT HEART 12/21/2019 VERONICA LAU [facility], ALI FACP CCDS Ot 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 12/21/2019 VERONICA LAU [facility], ALI FACP CCDS Ot I48.0 PAROXYSMAL ATRIAL [...] ACTIVITY, COOKING AND BAKING 12/21/2019 ECTOR DORSEY OPTICAL COATING TECHNICIAN Ot T21.25XA BURN OF SECOND DEGREE OF BUTTOCK, INITIA 12/21/2019 ECTOR DORSEY OPTICAL COATING TECHNICIAN Ot T24.212A BURN OF SECOND DEGREE OF LEFT THIGH, INI 12/21/2019 ECTOR DORSEY OPTICAL COATING TECHNICIAN Ot T65.292A TOXIC EFFECT OF TOBACCO AND [...] CCDS Ot 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 12/21/2019 VERONICA LAU FAC, ALI FACP [...] PULMONARY DISEASE, U 12/21/2019 BLAKE LAU, ADINA Mlulins Ot R06.0 2 SHORTNESS OF BREATH 12/21/2019 [...] LOCALIZED ENLARGED LYMPH NODES 12/21/2019 VERONICA LAU [facility], [facility] ANGELA ALOMNTES Ot I11.9 HYPERTENSIVE HEART DISEASE WITHOUT HEART 12/21/2019 VERONICA LAU [facility], [facility] ANGELA ALMONTES Ot 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 12/21/2019 VERONICA LAU [facility], ALI ANGELA ALMONTES Ot I48.0 PAROXYSMAL ATRIAL [...] 7-25 CREATININE 0.83 mg/dL 0.60-0.93 eGFR NON-AFR. EGYPTIAN 70 mL/min/1.73m2 > OR = 60 eGFR [...] 1:45 THYROID STIMULATING HORMONE 1.23 u[iU]/mL 0.35-4.94 Complete blood count (CBC) with automate d white blood cell (WBC) differential - 12/22/19 13:44 Blood leukocytes automated count (number/volume) 14.3 10*3/uL 4.3-11.0 Blood erythrocytes automated count (number/volume) 3.06 10*6/uL 4.35-5.85 Venous blood hemoglobin measurement (mass/volume) 9.2 g/dL 11.5-16.0 Blood hematocrit (volume fraction) 28 % 35-52 Automated erythrocyte mean corpuscular volume 91 [ foz_us] 80-99 Automated erythrocyte mean corpuscular h emoglobin (mass per erythrocyte) 30 pg 25-34 Automated erythrocyte mean corpuscular h emoglobin concentration measurement (mass/volume) 33 g/dL 32-36 Automated erythrocyte distribution width ratio 15. 7 % 10.0- 14.5 Automated blood platelet count (count/volume) 823 10*3/uL 130-400 Automated blood platelet mean volume measurement 7.9 [foz_us] 7.4-10.4 Automated blood neutrophils/100 leukocytes 82 % 42-75 Automated blood lymphocytes/100 leukocytes 10 % 12-44 Blood monocytes/100 leukocytes 7 % 0-12 Automated blood eosinophils/100 leukocytes 1 % 0-10 Automated blood basophils/100 leukocytes 0 % 0-10 Blood neutrophils automated count (number/volume) 11.8 10*3 1.8-7.8 Blood lymphocytes automated count (number/volume) 1.4 10*3 1.0-4.0 Blood monocytes automated count (number/volume) 1. 0 10*3 0.0-1.0 Automated eosinophil count 0.1 10*3/uL 0 .0-0.3 Automated blood basophil count (count/volume) 0.0 10*3/uL 0.0-0.1 Comprehensive metabolic panel - 12/22/19 13:44 Serum or plasma sodium measurement (moles/volume) 130 mmol/L 135-145 Serum or plasma potassium measurement (moles/volume) 4.1 mmol/L 3.6-5.0 Serum or plasma chloride measurement (moles/volume) 96 mmol/L 98-107 Carbon dioxide 23 mmol/L 21-32 Serum or plasma anion gap determination (moles/volume) 11 mmol/L 5-14 Serum or plasma urea nitrogen measurement (mass/volume ) 6 mg/dL 7-18 Serum or plasma creatinine measurement (mass/volume) 0.57 mg/dL 0.60-1.30 Serum or plasma urea nitrogen/creatinine mass ratio 11 NRG Serum or plasma creatinine measurement w ith calculation of estimated glomerular filtration rate > NRG Serum or plasma glucose measurement (mass/volume) 110 mg/dL 70-105 Serum or plasma calcium measurement (mass/volume) 7.8 mg/dL 8.5-10.1 Serum or plasma total bilirubin measurement (mass/volu me) 0.3 mg/dL 0.1-1.0 Serum or plasma alkaline phosphatase flores surement (enzymatic activity/volume) 205 U/L 40-136 Serum or plasma aspartate aminotransfera se measurement (enzymatic activity/volume) 16 U/L 5-34 Serum or plasma alanine aminotransferase measurement (enzymatic activity/volume) 11 U/L 0-55 Serum or plasma protein measurement (mass/volume) 5.3 g/dL 6.4-8.2 Serum or plasma albumin measurement (mass/volume) 2.6 g/dL 3.2-4.5 CALCIUM CORRECTED 8.9 mg/dL 8.5-10.1 Manual absolute plasma cell count - 12/11 10/01 13:44 Blood monocytes/100 leukocytes 6 % NRG Manual blood segmented neutrophils/100 leukocytes 85 % NRG Manual blood lymphocytes/100 leukocytes 9 % NRG Blood anisocytosis detection by light microscopy S LIGHT NRG Blood macrocytes detection by light microscopy SLI GHT NRG Blood poikilocytosis detection by light microscopy SLIGHT NRG Blood hypochromia detection by light microscopy SL IGHT NRG Blood platelet clump detection by light microscopy RARE NRG Blood platelet adequacy detection by light microscopy INCREASED NRG Serum or plasma C reactive protein measu rement (mass/volume) - 12/22/19 13:44 Serum or plasma C reactive protein measurement (mass/v olume) 21.78 mg/dL 0.00-0.50 PT panel in platelet poor plasma by coag ulation assay - 12/22/19 13:44 Prothrombin time (PT) in platelet poor plasma by coagu lation assay 12.6 s 12.2-14.7 INR in platelet poor plasma or blood by coagulation as say 0.9 0.8-1.4 Activated partial thromboplastin time (a PTT) in platelet poor plasma bycoagulation assay - 12/22/19 13:44 Activated partial thromboplastin time (a PTT) in platelet poor plasma bycoagulation assay 34 s 24-35 Blood lactic acid measurement (moles/vol ume) - 12/22/19 14:42 Blood lactic acid measurement (moles/volume) 0.84 mmol/L 0.50-2.00 Encounters ACCT No. Visit Date/Time Discharge Status Pt. Type Provider Facility Loc./Unit Complaint [id number] 11/06/2014 13:27:00 11/06/2014 23:59: 59 CLS Outpatient CLARISSE GARCIA APRN [id number] 10/09/2014 08:45:00 10/09/2014 23:59: 59 [place] [id number] 11/19/2019 12:00:00 11/19/2019 23:59:5 9 CLS Outpatient OBINNA PRASAD MD [facility] [id number] 06/26/2019 11:20:00 Document Registration [id number] 05/11/2019 12:55:00 Document Registration [id number] 05/08/2019 10:20:00 Document Registration [id number] 04/19/2019 09:10:00 Document Registration [id number] 11/07/2018 09:40:00 Document Registration [id number] 07/20/2018 09:00:00 Document Registration [id number] 05/30/2018 09:00:00 Document Registration [id number] 05/11/2018 09:40:00 Document Registration [id number] 06/07/2017 10:00:00 Document Registration [id number] 12/21/2019 09:26:00 020 12:25:00 DIS Outpatient RAYNA FARAH MD [facility] 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 [id number] 12/14/2019 11:00:00 11:41:00 DIS Outpatient RAYNA FARAH MD [facility] PREOP PEG TUBE PLACEMENT [id number] 12/04/2019 08:29:00 23:59:59 CLS Outpatient BLU BARRERA MD [facility] RAD SUPRAGLOTTIC SQUAMOUS C ELL CA [id number] 10/24/2019 21:10:00 17:30:00 DIS Inpatient HERNANDEZ DO, JARED V [facility] 4TH DEHYDRATION, INTRACTABL E CA (THROAT)PAIN [id number] 10/12/2019 10:03:00 23:59:59 CLS Outpatient JOVANA HULL MD [facility] RAD HX RADIATION,CHRONIC SO RE THROAT [id number] 09/17/2019 13:10:00 23:59:59 CLS Preadmit OBINNA PRASAD MD [facility] SDC OSTEOPOROSIS M81.0 [id number] 07/27/2019 13:10:00 15:10:00 DIS Outpatient RAYNA FARAH MD [facility] ENDO ANEMIA/CHANGE IN BOWEL HABIT [id number] 07/26/2019 06:16:00 09:13:00 DIS Outpatient RAYNA FARAH MD [facility] PREOP COLONOSCOPY/EGD [id number] 07/10/2019 06:46:00 13:45:00 DIS Outpatient TERRY MARTIN MD, FACC, FACP CC DS [facility] CATH CHEST PAIN, CAROTID ARTERIAL DISEASE [id number] 05/29/2019 13:00:00 23:59:59 CLS Preadmit TERRY MARTIN MD, FACC, FACP CCDS [facility] CATH PALPITATIONS,CHF,HTN,SOB,TOBACCO USER,COPD [id number] 05/16/2019 15:08:00 23:59:59 CLS Outpatient OBINNA PRASAD MD [facility] RAD PHARYNGEAL DYSPHAGIA,TH ROAT SWELLING [id number] 10/10/2018 00:10:00 23:59:59 CLS Preadmit REZA LAU, JENNIFER Blas [facility] ONC [id number] 09/20/2018 10:45:00 019 00:01:00 DIS Outpatient JENNIFER COBB MD [facility] ONC [id number] 07/28/2018 12:47:00 14:00:00 DIS Outpatient OBINNA PRASAD MD [facility] M81.0 [id number] 07/11/2018 08:05:00 23:59:59 CLS Outpatient JOVANA HULL MD [facility] RAD T2 SCCA OF EPIGIOTTIS [id number] 06/29/2018 08:09:00 13:20:00 DIS Outpatient JOVANA HULL MD [facility] EPIGLOTTIC MASS [id number] 06/28/2018 09:42:00 15:40:00 DIS Outpatient JOVANA HULL MD [facility] PREOP EPIGLOTTIC MASS [id number] 06/22/2018 08:06:00 23:59:59 CLS Outpatient VERONICA LAU FACC, TERRY MILLER CC DS [facility] CARD CAD [id number] 06/09/2018 15:02:00 23:59:59 CLS Preadmit JOVANA HULL MD [facility] RAD RIGHT EPIGLOTIC MASS [id number] 06/09/2018 12:49:00 23:59:59 CLS Outpatient JOVANA HULL MD [facility] RAD RIGHT EPIGLOTIC MASS [id number] 03/01/2018 08:59:00 12:30:00 DIS Outpatient RAYAN FARAH MD [facility] ENDO +BLOOD IN STOOLS/CONSTI PATION/HX PEREZ'S [id number] 02/23/2018 05:48:00 018 11:59:00 DIS Outpatient RAYNA FARAH MD [facility] PREOP COLONOSCOPY/EGD [id number] 09/08/2017 11:10:00 017 23:59:59 CLS Outpatient OBINNA PRASAD MD [facility] RAD M81.0, Z00.00,Z12.31 [id number] 09/08/2017 11:10:00 017 13:21:00 DIS Outpatient MIRZAJOVANA MCGILL DO [facility] CARD M54.16 LUMBAR RADICULOPATHY [id number] 08/22/2017 12:20:00 017 23:59:59 CLS Outpatient MERRITT VALENZEULA DO [facility] RAD ADRENAL MASS E2 7.8 [id number] 07/21/2017 08:46:00 017 23:59:59 CLS Outpatient OBINNA PRASAD MD [facility] RAD Z00.00 [id number] 06/23/2017 12:30:00 017 23:59:59 CLS Preadmit RONNY BENEDICT MD, V [facility] WOUNDCARE [id number] 06/14/2017 11:19:00 017 23:59:59 CLS Outpatient ECTOR DORSEY APRN [facility] WOUNDCARE [id number] 06/09/2017 09:44:00 017 23:59:59 CLS Outpatient RONNY BENEDICT MD [facility] WOUNDCARE [id number] 05/28/2017 11:53:00 017 14:18:00 DIS Emergency EMELY ESTES [facility] ER CONSTIPATION/DIARRHEA [id number] 05/17/2017 13:15:00 017 23:59:59 CLS Preadmit VERONICA LAU FACC, TERRY MILLER CCDS [facility] RAD PERIPHERAL FANNIE RIAL DISEASE I73.9 [id number] 05/11/2017 09:09:00 017 23:59:59 CLS Preadmit OBINNA PRASAD MD [facility] SLEEP HYPERSOMNIA,SNORING [id number] 11/08/2016 10:15:00 017 23:59:59 CLS Preadmit DIALLO GONZÁLES MD, V [facility] PULM J44.9 [id number] 08/09/2016 10:35:00 017 00:01:00 DIS Outpatient DIALLO GONZÁLES MD [facility] PULM J44.9 [id number] 11/05/2016 08:40:00 017 09:19:00 DIS Outpatient LELE HUGHES MD [facility] CARD DISC DISORDER [id number] 09/30/2016 13:17:00 017 23:59:59 CLS Outpatient ADINA LOZANO MD [facility] RAD SHORTNESS OF BREATH [id number] 09/13/2016 00:00:00 017 02:26:00 DIS Emergency HENRIQUE DO, TOSHIA Greco [facility] ER SOA, COUGH [id number] 08/16/2016 13:04:00 016 14:17:00 DIS Outpatient LELE HUGHES MD [facility] CARD M51.16 [id number] 03/01/2016 13:13:00 016 23:59:59 CLS Outpatient DIALLO GONZÁLES MD [facility] RAD COPD [id number] 03/01/2016 13:08:00 016 23:59:59 CLS Outpatient OBINNA PRSAAD MD [facility] RAD F/U PATCHY DENSITY ANTE RIORLY R LOBE [id number] 03/01/2016 13:01:00 016 23:59:59 CLS Outpatient VERONICA LAU FACC, TERRY MARIEP CC DS [facility] CARD CHRONIC HYPONATREMIA,COPD,ADRENAL MASS,HTN [id number] 01/29/2016 06:14:00 15:28:00 DIS Outpatient KIM THURSTON DO [facility] PREOP POLYPS;GERD [id number] 11/17/2015 14:52:00 16:45:00 DIS Inpatient FABIANA BEJARANO MD [facility] 4TH PNEUMONIA AECOPD AFIB R VR [id number] 10/10/2015 11:25:00 12:46:00 DIS Outpatient LELE HUGHES MD [facility] CARD DISC DISORDER W/ RADICU LOPATHY LUMBAR [id number] 07/22/2015 13:27:00 23:59:59 CLS Outpatient MERRITT VALENZUELA DO [facility] RAD ADRENAL MASS [id number] 06/30/2015 10:18:00 23:59:59 CLS Outpatient OBINNA PRASAD MD [facility] RAD FOLLOW UP FOR PNEUMONIA [id number] 06/27/2015 07:22:00 015 08:21:00 DIS Outpatient LELE HUGHES MD [facility] CARD DDD LUMBAR [id number] 05/19/2015 09:34:00 015 13:51:00 DIS Inpatient OBINNA PRASAD MD [facility] SURGICAL PNEUMONIA [id number] 05/09/2015 07:07:00 015 07:55:00 DIS Outpatient LELE HUGHES MD [facility] CARD DDD LUMBAR [id number] 03/13/2015 10:56:00 015 23:59:59 CLS Outpatient JOVANA HULL MD [facility] RAD UNILATERAL SORE THROAT, EAR PAIN [id number] 02/25/2015 10:18:00 015 23:59:59 CLS Outpatient OBINNA PRASAD MD [facility] RAD ADRENAL MASS [id number] 02/24/2015 10:18:00 015 23:59:59 CLS Outpatient OBINNA PRASAD MD [facility] LAB HYPERTENSION,HYPOTHYROI DISM [id number] 01/17/2015 08:49:00 015 10:16:00 DIS Outpatient LELE HUGHES MD [facility] CARD DDD LUMBAR [id number] 12/31/2014 10:16:00 015 23:59:59 CLS Outpatient LELE HUGHES MD [facility] RAD LOW BACK PAIN [id number] 10/25/2014 07:33:00 015 08:14:00 DIS Outpatient LELE HUGHES MD [facility] CARD DDD [id number] 10/14/2014 15:18:00 23:59:59 CLS Outpatient SHANICE LAU, OBINNA Corral [facility] RAD HEAD TRAUMA, ON PREDAXI A [id number] 08/18/2014 18:00:00 014 20:08:00 DIS Emergency MARICHUY LAU, CORNELIO Doll [facility] ER COLD COUGH [id number] 07/19/2014 07:32:00 23:59:59 CLS Outpatient LELE HUGHES MD [facility] CARD DDD LUMBAR [id number] 07/19/2014 07:30:00 23:59:59 CLS Outpatient SHAYY PEOPLES MD [facility] RAD ABDOMINAL MASS [id number] 07/01/2014 09:42:00 23:59:59 CLS Outpatient SHAYY PEOPLES MD [facility] RAD ABDOMINAL MASS [id number] 05/22/2014 08:50:00 14:10:00 DIS Outpatient RAYNA FARAH MD [facility] SDC COLON MASS;REFLUX [id number] 05/17/2014 07:11:00 014 08:01:00 DIS Outpatient LELE HUGHES MD [facility] CARD DDD [id number] 05/16/2014 07:21:00 23:59:59 CLS Outpatient RAYNA FARAH MD [facility] PREOP COLON MASS;REFLUX [id number] 05/08/2014 08:05:00 014 23:59:59 CLS Outpatient SHAYY PEOPLES MD [facility] RAD WEIGHT LOSS,LUIS FERNANDO,MURALI VIDALESM,EARLY SATIETY [id number] 01/28/2014 12:13:00 014 14:04:00 DIS Outpatient LELE HUGHES MD [facility] CARD DDD LUMBAR [id number] 11/09/2013 07:19:00 014 23:59:59 CLS Outpatient SHAYY PEOPLES MD [facility] RAD SCREENING [id number] 11/09/2013 07:09:00 014 23:59:59 CLS Outpatient LELE HUGHES MD [facility] CARD SACROILLIAC JOINT DSYFU NCTION,HIP PAIN BILATERAL [id number] 09/03/2013 12:35:00 23:59:59 CLS Outpatient LELE HUGHES MD [facility] CARD SACROILLIAC JOINT [id number] 08/13/2013 12:29:00 23:59:59 CLS Outpatient LELE HUGHES MD [facility] CARD LUMBAR SPONDYLOSIS [id number] 07/11/2013 09:34:00 11:51:00 DIS Outpatient LELE HUGHES MD [facility] REHAB CERICALGIA [id number] 06/08/2013 07:43:00 23:59:59 CLS Outpatient LELE HUGHES MD [facility] CARD DEGENERATIVE DISC DISEA SE-LUMBAR [id number] 05/04/2013 08:00:00 23:59:59 CLS Outpatient LELE HUGHES MD [facility] CARD DDD LUMBAR [id number] 12/22/2019 13:58:00 Document Registration [id number] 12/21/2019 10:00:00 P NATY PRASAD MD, OBINNA Corral [facility] RAD OROPHARYNGEAL DYSPHAGIA [id number] 12/21/2019 09:32:[address] Outpatient OBINNA PRASAD MD [facility] LAB E03.9,I10 [id number] 12/31/2014 10:16:00 Document Registration [id number] 12/31/2014 10:16:00 Document Registration [id number] 12/31/2014 10:16:00 Document Registration [id number] 12/31/2014 10:16:00 Document Registration [id number] 12/31/2014 10:16:00 Document Registration [id number] 12/31/2014 10:16:00 Document Registration [id number] 12/31/2014 10:16:00 Document Registration [id number] 12/31/2014 10:16:00 Document Registration [id number] 12/31/2014 10:16:00 Document Registration [id number] 12/31/2014 10:16:00 Document Registration [id number] 12/31/2014 10:16:00 Document Registration [id number] 12/31/2014 10:16:00 Document Registration [id number] 12/31/2014 10:15:00 Document Registration [id number] 12/31/2014 10:15:00 Document Registration [id number] 12/31/2014 10:15:00 Document Registration [id number] 12/31/2014 10:15:00 Document Registration [id number] 12/31/2014 10:15:00 Document Registration [id number] 11/10/2012 09:01:00 Document Registration [id number] 11/09/2012 08:16:00 Document Registration [id number] 10/26/2012 09:17:00 Document Registration [id number] 10/09/2012 10:13:00 Document Registration [id number] 05/22/2012 11:03:00 Document Registration [id number] 04/27/2012 13:09:00 Document Registration [id number] 04/25/2012 14:09:00 Document Registration [id number] 04/20/2012 09:59:00 Document Registration [id number] 12/17/2011 08:02:00 Document Registration [id number] 12/14/2011 08:56:00 Document Registration [id number] 12/08/2011 08:27:00 Document Registration [id number] 08/02/2011 11:42:00 Document Registration [id number] 07/01/2011 13:03:00 Document Registration [id number] 06/18/2011 11:31:00 Document Registration [id number] 06/08/2011 11:45:00 Document Registration [id number] 05/24/2011 12:37:00 Document Registration [id number] 05/24/2011 12:24:00 Document Registration [id number] 04/02/2011 09:07:00 Document Registration [id number] 03/09/2011 10:33:00 Document Registration [id number] 02/26/2011 07:33:00 Document Registration [id number] 02/23/2011 07:24:00 Document Registration [id number] 09/29/2010 08:58:00 Document Registration [id number] 09/18/2010 05:38:00 Document Registration [id number] 09/15/2010 13:07:00 Document Registration [id number] 08/25/2010 09:55:00 Document Registration [id number] 08/05/2010 08:46:00 Document Registration [id number] 07/13/2010 12:53:00 Document Registration [id number] 07/13/2010 12:41:00 Document Registration [id number] 07/07/2010 12:21:00 Document Registration [id number] 06/29/2010 08:26:00 Document Registration [id number] 06/26/2010 10:59:00 Document Registration [id number] 06/15/2010 11:31:00 Document Registration [id number] 05/26/2010 11:19:00 Document Registration [id number] 05/24/2010 11:50:00 Document Registration [id number] 05/20/2010 10:10:00 Document Registration [id number] 05/12/2010 13:46:00 Document Registration [id number] 05/11/2010 10:56:00 Document Registration [id number] 01/21/2010 10:50:00 Document Registration
--- NOTE | 2019-12-22 16:20 | NUR ---
patient to floor at this time via cart accompanied by ER staff.
[2019-12-22 16:44] VITALS: BP 145/78
[2019-12-22] MEDS: LACTATED RINGERS 1,000 ML IV SCH (17:10)
[2019-12-22 17:13] VITALS: BP 146/89
[2019-12-22] MEDS ORDERED: RT-ALBUTEROL/IPRATROPIUM 3 ML (DUONEB) VIAL INH PRN (17:30)
[2019-12-22 17:44] VITALS: BP 145/78
[2019-12-22] MEDS ORDERED: polyethylene glycoL Bowel Prep(MIRALAX) 238 GM PO PRN (18:30)
[2019-12-22] MEDS ORDERED: ACETAMINOPHEN 325 MG TABLET PO PRN (18:30)
[2019-12-22] MEDS: RT-ALBUTEROL/IPRATROPIUM 3 ML (DUONEB) VIAL INH SCH ×2 (18:36→22:01)
[2019-12-22 19:34] VITALS: BP 110/62
[2019-12-22] MEDS: ONDANSETRON 4 MG/2 ML (SDV) Z0FRAN IV PRN (20:24)
[2019-12-22] MEDS: morphine INJ 4 MG/ML 1 ML (VIAL/SYRINGE) IV PRN (20:24)
[2019-12-22] MEDS ORDERED: METHOCARBAMOL 750 MG (ROBAXIN) TAB PO SCH (21:00)
[2019-12-22] MEDS ORDERED: morphine ER 30 MG (MS CONTIN) TAB PO SCH (21:00)
[2019-12-22] MEDS ORDERED: MIRTAZAPINE 15 MG (REMERON) TAB PO SCH (21:00)
[2019-12-22] MEDS ORDERED: DULoxetine 30 MG (CYMBALTA) CAP PO SCH (21:00)
[2019-12-22] MEDS ORDERED: NON-FORMULARY MEDICATION 1 EA EA (Duloxetine HCl 60 MG) PO SCH (21:00)
[2019-12-22] MEDS ORDERED: NON-FORMULARY MEDICATION 1 EA EA (Mirtazapine 30 MG) PO SCH (21:00)
[2019-12-23 00:51] VITALS: BP 122/68
[2019-12-23] MEDS: morphine INJ 4 MG/ML 1 ML (VIAL/SYRINGE) IV PRN (01:55)
[2019-12-23] MEDS: ONDANSETRON 4 MG/2 ML (SDV) Z0FRAN IV PRN (01:55)
[2019-12-23 04:00] VITALS: BP 124/75
[2019-12-23 05:08] LABS: BASOPHILS % (AUTO) 0 % (0-10); EOSINOPHILS # (AUTO) 0.1 10^3/uL (0.0-0.3); EOSINOPHILS % (AUTO) 0 % (0-10); HEMATOCRIT 24 % (35-52); LYMPHOCYTES # (AUTO) 0.9 X 10^3 (1.0-4.0); LYMPHOCYTES % (AUTO) 5 % (12-44); MEAN CORPUSCULAR HEMOGLOBIN 30 PG (25-34); MEAN CORPUSCULAR HGB CONC 33 G/DL (32-36); MEAN CORPUSCULAR VOLUME 91 FL (80-99); MEAN PLATELET VOLUME 8.1 FL (7.4-10.4); MONOCYTES # (AUTO) 1.1 X 10^3 (0.0-1.0); MONOCYTES % (AUTO) 6 % (0-12); NEUTROPHILS # (AUTO) 17.1 X 10^3 (1.8-7.8); NEUTROPHILS % (AUTO) 89 % (42-75); PLATELET COUNT 726 10^3/uL (130-400); RED CELL DISTRIBUTION WIDTH 15.6 % (10.0-14.5); WHITE BLOOD COUNT 19.3 10^3/uL (4.3-11.0)
[2019-12-23] MEDS: LACTATED RINGERS 1,000 ML IV SCH ×2 (05:14→06:46)
[2019-12-23 05:21] LABS: CHLORIDE 99 MMOL/L (98-107); POTASSIUM 4.3 MMOL/L (3.6-5.0); SODIUM 131 MMOL/L (135-145)
[2019-12-23 05:22] LABS: CALCIUM 7.7 MG/DL (8.5-10.1)
[2019-12-23 05:23] LABS: GLUCOSE 79 MG/DL (70-105)
[2019-12-23 05:24] LABS: CARBON DIOXIDE 21 MMOL/L (21-32)
[2019-12-23 05:27] LABS: BUN/CREATININE RATIO 14; GFR ESTIMATED > 60
[2019-12-23 05:30] LABS: LYMPHOCYTES % (MANUAL) 4 %; MONOCYTES % (MANUAL) 5 %; MYELOCYTES % 1 %; NEUTROPHILS % (MANUAL) 90 %
[2019-12-23 05:31] LABS: HYPOCHROMASIA MARKED; POIKILOCYTOSIS SLIGHT; POLYCHROMASIA SLIGHT
[2019-12-23 05:32] LABS: ANISOCYTOSIS SLIGHT; BURR CELLS SLIGHT; MICROCYTOSIS SLIGHT; TARGET CELLS SLIGHT
[2019-12-23] MEDS: RT-ALBUTEROL/IPRATROPIUM 3 ML (DUONEB) VIAL INH SCH (06:52)
[2019-12-23] MEDS ORDERED: polyethylene glycoL POWDER 17 GM (MIRALAX) PACK PO PRN (07:45)
--- NOTE | 2019-12-23 07:50 | NUR ---
CALLED TO ROOM BY DRIER AND PULVERIZER TENDER. PT ALERT AND TALKING AND VOMITING COPIOUS AMOUNTS OF BRIGHT RED BLOOD. REQUESTING TO SIT ON SIDE OF BED. ATTEMPT TO FULFILL REQUEST AND PT BECAME FLACCID WITH AGONAL RESPIRATIONS. RETURNED TO BED AND PLACED ON SIDE. BLOOD TRICKLING OUT OF MOUTH. AGONAL RESPIRATIONS. DR. CRAWLEY NOTIFIED.
--- NOTE | 2019-12-23 07:55 | NUR ---
RESPIRATIONS AND HEART CEASED. PT CLEANED.
--- NOTE | 2019-12-23 08:01 | NUR ---
SON ERIKA NOTIFIED OF MOTHERS . 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
[2019-12-23] MEDS ORDERED: LEVOTHYROXINE 75 MCG (LEVOTHROID) TABLET PO SCH (09:00)
[2019-12-23] MEDS ORDERED: meTOprolol SUCCINATE 100 MG (TOPROL XL) TAB PO SCH (09:00)
[2019-12-23] MEDS ORDERED: NON-FORMULARY MEDICATION 1 EA EA (Metoprolol Succinate 200 MG) PO SCH (09:00)
[2019-12-23] MEDS ORDERED: NON-FORMULARY MEDICATION 1 EA EA (Omeprazole 40 MG) PO SCH (09:00)
[2019-12-23] MEDS ORDERED: PANTOPRAZOLE 40 MG (PROTONIX) TAB PO SCH (09:00)
[2019-12-23] MEDS ORDERED: UMECLIDINIUM BROMIDE (INCRUSE ELLIPTA) 7'S IH SCH (09:00)
--- NOTE | 2019-12-23 09:00 | NUR ---
REMAINS AND BELONGINGS TO [facility].
--- NOTE | 2019-12-23 09:13 | Short Stay Summary-Hospitalist ---
History of Present Illness HPI/Chief Complaint This is a 74-year-old white female who presented to the emergency room yesterday with complaints of increased shortness of breath and coughing up blood. The patient has known metastatic cancer of the throat. She has opted out of further chemotherapy and treatment and is requesting a DO NOT RESUSCITATE status and to not in pain. The patient had been stable overnight and then this morning she has to sit up started coughing up copious amounts of blood then passed out and began agonal respirations and at 755 a.m. This is in keeping with what the patient's wishes were. Son has been notified. Source: RN/, old records Date Seen 12/23/19 Time Seen by a Provider: 09:00 Attending Physician Karyn Pickett MD PCP Obinna Prasad MD Referring Physician Date of Admission Dec 22, 2019 at 15:39 Home Medications & Allergies Home Medications Reviewed patient Home Medication Reconciliation performed by pharmacy medication reconciliations automation engineering technician and/or nursing. Patients Allergies have been reviewed. Allergies Allergies Coded Allergies hydrocodone (Verified Allergy, Mild, Pt has received Morphine in the past, 07/27/19) warfarin (Verified Adverse Reaction, Intermediate, BLISTERS, 06/28/18) Past [id number] Hx Past Med/Social Hx: Reviewed Nursing Past Med/Soc Hx Patient Social History Marrital Status: Employed/Student: retired Alcohol Use: Denies Use Recreational Drug Use: No Smoking Status: Former Smoker Former Smoker, Quit: Nov 20, 2019 Type Used: Cigarettes 2nd Hand Smoke Exposure: Yes Recent Foreign Travel: No Contact w/other who traveled: No Recent Hopitalizations: No Recent Infectious Disease Expo: No Immunizations Up To Date Tetanus Booster (TDap): Unknown Date of Pneumonia Vaccine: Jun 23, 2015 Date of Influenza Vaccine: Jun 01, 2019 Seasonal Allergies Seasonal Allergies: Yes Past Medical History Surgeries: Abdominal, Gallbladder Currently Using CPAP: No Currently Using BIPAP: No Cardiac: Atrial Fibrillation, Chronic Edema/Swelling, Coronary Artery Disease, Hypertension : No Reproductive: No Sexually Transmitted Disease: No HIV/AIDS: No Female Reproductive Disorders: Denies Gastrointestinal: Gastroesophageal Reflux, Noguera's Esophagus, Chronic Const ipation, Polyps, Ulcer Musculoskeletal: Degenerate Disk Disease, Arthritis, Chronic Back Pain Endocrine: Hypothyroidsim Loss of Vision: Bilateral Hearing Impairment: Denies Cancer: Esophageal Did You Recieve Any Treatments: Yes What Type of Treatment Did You: Chemotherapy, Radiation Psychosocial: Anxiety History of Blood Disorders: Yes (anemia) Adverse Reaction to Blood Gutierrez: No (N/A) Family History Reviewed Nursing Family Hx Arthritis 19 FATHER 19 MOTHER Cardiovascular disease 19 FATHER Diabetes mellitus 19 FATHER No Pertinent Family Hx Review of Systems ROS-Unable to Obtain: Patient is Constitutional: no symptoms reported Physical Exam Physical Exam Vital Signs Vital Signs - First Documented 12/22/19 13:32 Temp 36.8 Pulse 86 Resp 18 B/P (MAP) 146/89 (108) Pulse Ox 93 O2 Delivery Nasal Cannula O2 Flow Rate 3.00 Capillary Refill : Less Than 3 SecondsLess Than 3 Seconds Height, Weight, BMI Height: 5'3.00" Weight: 143lbs. 9.0oz. 65.632372md; 21.32 BMI Method:Stated General Appearance: Thin, Other () Neurologic/Psychiatric: Other () Skin: Warm/Dry, Pallor Results Results/Procedures Labs Laboratory Tests 12/22/19 13:44 12/23/19 04:57 Patient resulted labs reviewed. Short Stay Diagnosis Discharge Diagnosis-Short Stay Admission Diagnosis Hemoptysis Metastatic cancer the throat Pneumonia Anorexia secondary to pain and cancer Final Discharge Diagnosis Metastatic cancer of the throat with terminal hemoptysis Conclusion Plan Discharge to the home Clinical Quality Measures DVT/VTE Risk/Contraindication: Risk Factor Score Per Nursin RFS Level Per Nursing on Admit: 4+=Very High Copy Copies To 1: OBINNA PRASAD MD, KATHLEEN M MD Dec 23, 2019 09:13
[2019-12-23] MEDS ORDERED: CEFEPIME 2,000 MG/SWFI 20 ML IV PUSH IV SCH ×2 (16:00)
== END 2019-12-23 07:55 | disposition expired | DRG 146 ==
LOC: EDUNIT# 13:32 → ER 13:33 → 4TH 15:39
PROVIDERS: ADMIT Internal Medicine; ATTEND Internal Medicine
DX: C14.0 Malignant neoplasm of pharynx, unspecified (principal); R04.2 Hemoptysis; C78.02 Secondary malignant neoplasm of left lung; C78.01 Secondary malignant neoplasm of right lung; J18.9 Pneumonia, unspecified organism; J43.9 Emphysema, unspecified; R63.0 Anorexia; Z66 Do not resuscitate; Z51.5 Encounter for palliative care; Z93.1 Gastrostomy status; Z99.81 Dependence on supplemental oxygen; I48.91 Unspecified atrial fibrillation; I25.10 Atherosclerotic heart disease of native coronary artery without angina pectoris; I10 Essential (primary) hypertension; K21.9 Gastro-esophageal reflux disease without esophagitis; F41.9 Anxiety disorder, unspecified; M19.91 Primary osteoarthritis, unspecified site; M54.9 Dorsalgia, unspecified; E03.9 Hypothyroidism, unspecified; D64.9 Anemia, unspecified; Z87.891 Personal history of nicotine dependence
CPT/HCPCS: 36415; 71045; 71260; 74177; 80048; 80053; 83605; 85007; 85027; 85610; 85730; 86141; 87040; 94640; 94664; 94760